=== PATIENT | male | born 1940 | race Caucasian/White ===

== ENCOUNTER 2018-11-07 21:53 | Inpatient (IN) | payer MEDICARE, BC, SELFPAY ==
[2018-11-07 21:54] VITALS: BP 192/100; PULSE 83; RESP 18; TEMP 36.6; O2SAT 97; BMI 37.1
[2018-11-07] MEDS: 0.9% Normal Saline 1,000 ML 1000 ML IV (22:38)
[2018-11-07] MEDS: Morphine 2 MG/ML Syringe IV (22:39)
[2018-11-07] MEDS: Ondansetron 4 MG/2 ML Vial IV (22:39)
[2018-11-07 22:45] LABS: Absolute Lymphocyte Count 0.99 X10^3/ul (0.83-4.51); Absolute Neutrophil Count 10.9 X10^3/uL (2.0-7.7); Basophil# 0.01 X10^3/uL; Basophil% 0.1 % (0-1); Hematocrit 42.1 % (40-54); Hemoglobin 14.5 g/dl (13.0-16.5); Lymphocyte # 0.99 X10^3/ul (4.0); Mean Corp Hgb Conc 34.4 g/gl (32-36); Mean Corpuscular Hgb 34.6 pg (27.0-32.0); Mean Corpuscular Volume 100.5 fL (80-94); Mean Platelet Vol. 9.8 fl (6.2-12.0); Monocyte# 0.46 X10^3/uL; Monocyte% 3.7 % (0-10); Neutrophil # 10.87 X10^3/uL (2.7-7.7); Platelet Count 238 K/mm3 (150-450); RBC Distribution Width CV 12.6 % (11.6-14.6); RBC Distribution Width SD 45.1 fl (35.1-43.9); Red Blood Count 4.19 M/mm3 (4.6-6.2); White Blood Count 12.4 K/mm3 (4.4-11.0)
[2018-11-07 22:46] LABS: POSITIVE COUNT NO; POSITIVE DIFFERENTIAL NO; POSITIVE MORPHOLOGY NO
[2018-11-07 23:00] LABS: AST(SGOT) 22 U/L (15-37); Alanine Aminotransfer ALT/SGPT 23 U/L (16-61); Albumin, Serum 3.7 g/dL (3.2-5.0); Alkaline Phosphatase 54 U/L (45-117); Anion Gap 9 (5-15); BUN 25 mg/dL (7-18); BUN/Creat Ratio 22.5 RATIO (10-20); Chloride 101 mmol/L (98-107); Creatinine, Serum 1.11 mg/dL (0.70-1.30); EST Glomerular Filtration Rate 68 mL/min (>60); Est Glom Filt Rate - Afr Amer 82 mL/min (>60); Estimated Creatinine Clearance 67.34 ml/min; Globulin 3.8 g/dL (2.2-4.2); Glucose 134 mg/dL (74-106); Lipase 70 U/L (73-393); Potassium 3.8 mmol/L (3.5-5.1); Protein, Total 7.5 g/dL (6.4-8.2); Sodium Level 137 mmol/L (136-145)
[2018-11-07 23:13] LABS: Mucous, Urine 0 SEEN /hpf (<or=2+); Red Blood Cells-Urine 0 SEEN /hpf (0-5)
[2018-11-07 23:17] LABS: Color, Urine Yellow (Yellow); Glucose, Dipstick Normal (Normal); Ketone-Dipstick 5 mg/dl (Negative); Leukocyte Esterase-Dipstick 25 /ul (Negative); Nitrite-Dipstick Negative (Negative); Occult Blood-Urine 10 /ul (Negative); Protein-Dipstick 15 mg/dl (Negative); Urine Clarity Clear (Clear); Urine Urobilinogen 4 mg/dl (Normal)
[2018-11-07 23:18] LABS: Urine Bilirubin Dipstick 1 mg/dL (Negative)
[2018-11-07 23:22] LABS: Bacteria RARE /hpf (None Seen)
[2018-11-07 23:23] LABS: Calcium Oxalate Crystals Ur RARE /hpf (<or=2+); Squamous Epithelial Cells - UA 0-5 SEEN /hpf (0-5); White Blood Cells 0-5 SEEN /hpf (0-5)
[2018-11-08] VITALS (15 sets, daily range): BP systolic 110–173; BP diastolic 69–95; PULSE 74–102; RESP 16–20; TEMP 36.4–37.3; O2SAT 90–97; BMI 37.5; BMI 37.4
[2018-11-08] MEDS: proMETHazine 25 MG/ML Syringe 6.25 MG IV ×2 (00:06→03:01)
--- NOTE | 2018-11-08 00:30 | CT_ITS ---
HISTORY: N/V Abdomen pain. Prev rt hip surgery and cholecystectomy TECHNIQUE: Helically acquired images were obtained of the abdomen and pelvis following IV contrast. A radiation dose optimization technique was used for this scan. IV Contrast dosage and agent: 100 cc Isovue-300 contrast Oral contrast: YES COMPARISON: None FINDINGS: GI tract: Long segment abnormal dilatation of proximal and mid small intestinal loops which show increased fluid compared to normal. More focally dilated small bowel loop within the upper midline abdomen extending over a nearly 12 cm length. This loop measures up to 4.7 cm in diameter and shows retained stool with the pseudo-appearance of colon but represents small bowel. Distal to this level, transition zone with nondilated distal ileal loops. CT findings are characteristic for partial small bowel obstruction. Large fecal residue within the right and transverse colon and the distal colon is decompressed. Normal appendix. Lower thorax: Elevation of the right hemidiaphragm compatible with chronic change. No pleural effusion. Small hiatal hernia. Normal liver size with possible 1 cm cyst at the junction of the right and left hepatic lobes. No biliary dilatation. Gallbladder is surgically absent. Negative spleen. Bilateral renal excretion of contrast without evidence of hydronephrosis or suspicious renal lesion. Both kidneys show benign appearing cortical and parapelvic cysts. Right adrenal 2.4 x 1.5 cm nodule, nonspecific. Normal left adrenal Abdominal aorta is atherosclerotic and is normal in caliber. No ascites or retroperitoneal lymphadenopathy. Pelvis: Evaluation of the pelvic floor is partly limited secondary to streak artifact related to right total hip prosthesis. As visualized, the urinary bladder is negative. The prostate gland is not enlarged. Bones: No acute osseous abnormality. Lumbar spine advanced degenerative spondylosis with additional degenerative spondylosis of the lower thoracic spine. CT/Abdomen/Pelvis WITH Contrast IMPRESSION: 1. Abnormally dilated small bowel with distal transition zone from dilated to nondilated small bowel in keeping with partial small bowel obstruction. More focally dilated small bowel loop at the transition level. Details above. 2. Chronic findings include bilateral renal cysts and atherosclerotic calcifications.. Additional findings as above. Individualized dose optimization techniques were used for this CT. at 0216 Reported and signed by: Blair Carey MD N.B. : The above information has been verbally conveyed by Blair Carey to Joce Rodriguez MD, on 11/08/2018 23:42:20 (ET). Electronically Signed: Blair Carey, at 2:15 EST Tel , Service support ,
[2018-11-08] MEDS: Morphine 4 MG/ML Syringe IV (02:49)
--- NOTE | 2018-11-08 03:51 | HP.PCM_ITS ---
Problem List (1) Small bowel obstruction Status: Acute History of Present Illness Date of Admission: 11/08/18 Chief Complaint: nausea, vomiting and abdominal pain The patient is a 78 year old M with a significant history of osteoarthritis; rheumatoid arthritis; hypertension; cholecystectomy who presented with 5-day history of nausea, vomiting and constipation. His symptoms first started with constipation then he began to have nausea and vomiting. Because of his vomiting he has not been able to keep his meds down. Associated with his symptoms is progressively worsening excruciating left lower quadrant pain. His pain is continuous with episodic spikes. He reported that if he drinks or eat anything it aggravates his pain. He reported that drinking contrast for CT of his abdomen at emergency department aggravated his pain. He denies any ameliorating factors. CT of his abdomen and pelvis at emergency department showed the patient has bowel obstruction. Emergency department doctor had a conversation with Dr. Harley, general surgeon. Patient was not having any vomiting at emergency department so NG tube was not placed. General surgery will see patient in a.m. Past Medical History Medical History: Medical History (Last Updated 11/08/18 @ 05:10 by Milton Li MD) Rheumatoid arthritis M06.9 HTN (hypertension) I10 Allergies No Known Allergies Allergy (Verified 11/07/18 21:56) Home Medications: Ambulatory Orders Medication Instructions Recorded Amlodipine [Norvasc] 5 mg PO DAILY 11/07/18 Carvedilol 25 mg PO BID 11/07/18 Folic Acid 1 mg PO DAILY 11/07/18 Hydroxychloroquine [Plaquenil] 1 tab PO BID 11/07/18 Losartan/Hydrochlorothiazide 1 tab PO DAILY 11/07/18 [Losartan-Hctz 100-25 mg Tab] Meloxicam 7.5 mg PO BID 11/07/18 Methotrexate 8 tab PO QWEEK 11/07/18 Omeprazole 40 mg PO DAILY 11/07/18 hydrALAZINE [Apresoline] 25 mg PO BID 11/07/18 Surgical History: cholecystectomy, - - Left hip replacement; facial surgery for cancer; plate placed in left forearm; and left rotator cuff surgery; Lives: Spouse/ Significant Other Smoking Status: Never smoker Alcohol: None - *Family History Maternal Family History: Family History (Last Updated 11/08/18 @ 05:13 by Milton Li MD) Mother Pancreatic cancer Father Heart problem Sister Breast cancer Review of Systems Constitutional: Denies: Chills, Fever, Weight Change HEENT: Denies: Head Aches, Sinus Congestion, Sinus Drainage Cardiovascular: Denies: Chest Pain, Palpitations Respiratory: Denies: Cough, Shortness of breath at rest, Sputum production Gastrointestinal: Reports: Abdominal Pain, Constipation, Nausea, Vomiting Genitourinary: Denies: Dysuria Musculoskeletal: Denies: Joint Pain, Joint Tenderness Skin: Denies: Rash, Wounds Neurological: Denies: Numbness, Tingling, Focal weakness Psychiatric: Denies: Anxiety, Depression, Homicidal Ideations, Suicidal Ideations Hematologic/ Lymphatic: Denies: Easy Bruising, Easy Bleeding VTE Information - Inpt Only VTE Present on Admission: No VTE Mechan Device Prophylaxis: None VTE Pharm Prophylaxis ordered?: Yes Patient Problems: Active and Suspected Problems Small bowel obstruction (Acute) - Physical Exam General: Alert, Oriented x3, Cooperative HEENT: Atraumatic, PERRLA, EOMI, Normocephalic Neck: Supple, No JVD, Negative Carotid Bruits Lungs: Clear to auscultation, Normal air movement Cardiovascular: Regular rate, No murmurs Abdomen: Bowel Sounds Present, Soft, Tender - Epigastric region Extremities: Capillary Refill Less than 3 Seconds, Edema - Left ankle, chronic Skin: No rashes, No breakdown Musculoskeletal: No Tenderness to Palpation of Joints or Extremities Neurological: Neuro grossly intact Psych/Mental Status: Normal Affect, Appropriate Vital Signs Temp Pulse Resp BP Pulse Ox 98 F 91 18 156/88 H 95 11/07/18 21:54 11/08/18 02:43 11/07/18 21:54 11/08/18 02:43 11/08/18 02:43 Oxygen Delivery Method Room Air Weight: 138.346 kg Body Mass Index (BMI) 37.1 Laboratory Tests Past 24 Hrs 11/07/18 11/07/18 11/07/18 22:10 22:35 22:35 WBC 12.4 H RBC 4.19 L Hgb 14.5 Hct 42.1 MCV 100.5 H MCH 34.6 H MCHC 34.4 RDW 12.6 RDW Differential 45.1 H Plt Count 238 MPV 9.8 Immature Gran % (Auto) 0.200 Neut % (Auto) 88.0 H Lymph % (Auto) 8.0 L [place] % (Auto) 3.7 Eos % (Auto) 0.0 Baso % (Auto) 0.1 Absolute Neuts (auto) 10.9 H Absolute Lymphs (auto) 0.99 Total Counted Not Reportable Sodium 137 Potassium 3.8 Chloride 101 Carbon Dioxide 27.0 Anion Gap 9 BUN 25 H Creatinine 1.11 Estim Creat Clear Calc 67.34 Est GFR (MDRD) Af Amer 82 Est GFR (MDRD) Non-Af 68 BUN/Creatinine Ratio 22.5 H Glucose 134 H Calcium 9.0 Total Bilirubin 1.10 H AST 22 ALT 23 Alkaline Phosphatase 54 Total Protein 7.5 Albumin 3.7 Globulin 3.8 Albumin/Globulin Ratio 1.0 Lipase 70 L Urine Color Yellow Urine Clarity Clear Urine pH 6.0 Ur Specific [place] 1.020 Urine Protein 15 H Urine Glucose (UA) Normal Urine Ketones 5 H Urine Occult Blood 10 H Urine Nitrite Negative Urine Bilirubin 1 H Urine Urobilinogen 4 H Ur Leukocyte Esterase 25 H Urine RBC 0 SEEN Urine WBC 0-5 SEEN Ur Squamous Epith Cells 0-5 SEEN Calcium Oxalate Crystal RARE Urine Bacteria RARE Urine Mucus 0 SEEN Assessment/Plan All Active Problems Small bowel obstruction (Acute) The patient is a 78 year old M with a significant history of osteoarthritis; rheumatoid arthritis; hypertension; cholecystectomy who presented with 5-day history of nausea, vomiting , constipation and with radiographic evidence of small bowel obstruction. Small bowel obstruction Supportive treatment with normal saline with potassium. Pain control with IV morphine. Antiemetics with IV Zofran. N.p.o. for bowel rest. General surgery has been consulted. Hypertensive urgency. At emergency department patient blood pressure was 192/100. However patient d id not have any end organ damage. Because patient is n.p.o. we will place patient on scheduled labetalol IV; and as needed IV hydralazine. Patient was admitted to [facility]. We will place him on telemetry while at [facility] and receiving labetalol IV.. Rheumatoid arthritis and osteoarthritis We will hold home meloxicam and methotrexate. Actually methotrexate is due every Monday and is not due at this time. P.o. folic acid is also on hold at this time. Patient will get a as needed morphine for pain as above. GERD Will change home p.o. PPI to IV Protonix. DVT prophylaxis Subcutaneous heparin. Code Visit Inpatient E&M: 47718 Init Hosp L3
[2018-11-08] MEDS: Morphine 2 MG/ML Syringe IV ×4 (05:03→21:01)
[2018-11-08] MEDS: Labetalol 20 MG/4 ML Vial 10 MG IV (06:04)
--- NOTE | 2018-11-08 06:27 | ED.VISSUMM ---
- ER Visit Summary Date of Service: 11/08/18 Chief Complaint: Abdominal pain nausea and vomiting History of Present Illness: The patient is a 78 M who presents with abdominal pain nausea and vomiting. He complains of severe nausea and vomiting since yesterday. He has had waxing and waning left lower quadrant abdominal pain. This is only mild currently but was severe prior to presentation. No fever. No diarrhea. No urinary symptoms. No sick contacts. No history of prior similar symptoms. Physical Examination: Afebrile blood pressure 192/100 vitals otherwise unremarkable Moist mucous membranes Heart regular rate and rhythm Lungs clear Abdomen soft nondistended with left lower quadrant abdominal tenderness without guarding without rebound Alert Test Results: Labs notable for white blood cell count of 12.[address] of the abdomen and pelvis shows findings consistent with partial small bowel obstruction with a focal transition zone. Emergency Department Course and Treatment: My initial concern was for diverticulitis. He does report a remote history of this. He underwent a workup as above. He was symptomatically treated with IV fluids morphine Zofran. He has had no further vomiting here. Therefore I did not place an NG. I spoke to the hospitalist who agrees to admit but also requested that I discussed the patient with surgery for surgical consultation. I spoke to Dr. Harley and patient will have surgical consultation later today. Treatment Plan: [] Disposition: Admit Impression: Partial small bowel obstruction This note was generated with [employer] dictation software. It may contain incorrect words, spelling, and punctuation that were not noted in review of the chart prior to signing ED Disposition - Plan for ED Patient: Disposition: Acute Care Hospital [facility] Chief Complaint: Nausea/Vomiting
--- NOTE | 2018-11-08 06:30 | ED.DCSUM_ITS ---
- ER Visit Summary Date of Service: 11/08/18 Chief Complaint: Abdominal pain nausea and vomiting History of Present Illness: The patient is a 78 M who presents with abdominal pain nausea and vomiting. He complains of severe nausea and vomiting since yesterday. He has had waxing and waning left lower quadrant abdominal pain. This is only mild currently but was severe prior to presentation. No fever. No diarrhea. No urinary symptoms. No sick contacts. No history of prior similar symptoms. Physical Examination: Afebrile blood pressure 192/100 vitals otherwise unremarkable Moist mucous membranes Heart regular rate and rhythm Lungs clear Abdomen soft nondistended with left lower quadrant abdominal tenderness without guarding without rebound Alert Test Results: Labs notable for white blood cell count of 12.[address] of the abdomen and pelvis shows findings consistent with partial small bowel obstruction with a focal transition zone. Emergency Department Course and Treatment: My initial concern was for diverticulitis. He does report a remote history of this. He underwent a workup as above. He was symptomatically treated with IV fluids morphine Zofran. He has had no further vomiting here. Therefore I did not place an NG. I spoke to the hospitalist who agrees to admit but also requested that I discussed the patient with surgery for surgical consultation. I spoke to Dr. Harley and patient will have surgical consultation later today. Treatment Plan: [] Disposition: Admit Impression: Partial small bowel obstruction This note was generated with [employer] dictation software. It may contain incorrect words, spelling, and punctuation that were not noted in review of the chart prior to signing ED Disposition - Plan for ED Patient: Disposition: Acute Care Hospital [facility] Chief Complaint: Nausea/Vomiting
[2018-11-08 07:24] LABS: Absolute Neutrophil Count 11.5 X10^3/uL (2.0-7.7); Basophil# 0.01 X10^3/uL; Basophil% 0.1 % (0-1); Eosinophil# 0.01 X10^3/uL; Eosinophils% 0.1 % (0-5); Hematocrit 43.6 % (40-54); Hemoglobin 14.7 g/dl (13.0-16.5); Lymphocyte % 9.7 % (19-41); Mean Corp Hgb Conc 33.7 g/gl (32-36); Mean Corpuscular Hgb 33.9 pg (27.0-32.0); Mean Corpuscular Volume 100.7 fL (80-94); Mean Platelet Vol. 9.6 fl (6.2-12.0); Monocyte# 0.64 X10^3/uL; Monocyte% 4.8 % (0-10); Neutrophil # 11.45 X10^3/uL (2.7-7.7); Neutrophil % 85.2 % (47-70); Platelet Count 254 K/mm3 (150-450); RBC Distribution Width CV 12.7 % (11.6-14.6); RBC Distribution Width SD 46.1 fl (35.1-43.9); Red Blood Count 4.33 M/mm3 (4.6-6.2); White Blood Count 13.4 K/mm3 (4.4-11.0)
[2018-11-08 07:25] LABS: POSITIVE COUNT NO; POSITIVE DIFFERENTIAL NO; POSITIVE MORPHOLOGY NO
[2018-11-08 07:42] LABS: Anion Gap 8 (5-15); BUN 26 mg/dL (7-18); BUN/Creat Ratio 23.6 RATIO (10-20); Chloride 102 mmol/L (98-107); EST Glomerular Filtration Rate 69 mL/min (>60); Est Glom Filt Rate - Afr Amer 83 mL/min (>60); Estimated Creatinine Clearance 64.35 ml/min; Glucose 132 mg/dL (74-106); Potassium 3.9 mmol/L (3.5-5.1); Sodium Level 138 mmol/L (136-145)
--- NOTE | 2018-11-08 08:44 | PCM.PN.HOSP ---
Patient Problems: Active and Suspected Problems (Last Updated 11/08/18 @ 05:10 by Milton Li MD) Small bowel obstruction (Acute) Subjective: still with abdominal pain. no flatus. no BM. Vitals/I&O's: Vital Signs Temp Pulse Resp BP Pulse Ox 36.4 C L 85 20 H 168/79 H 96 11/08/18 04:53 11/08/18 06:03 11/08/18 04:53 11/08/18 04:53 11/08/18 07:25 Oxygen Delivery Method Room Air Weight: 132.4 kg Body Mass Index (BMI) 37.5 Intake and Output for Last 24 Hours 11/06/18 11/07/18 11/08/18 23:59 23:59 23:59 Intake Total Balance General: Alert, No apparent distress HEENT: Atraumatic, Normocephalic Oral: Moist Mucosa, No Gingival or Mucosal Lesions/ Ulcerations Neck: No Nodes, Thyroid Normal Size and Texture Lungs: Clear to auscultation, Normal air movement, No rhonchi, No wheeze Cardiovascular: Regular rate, Regular Rhythm, Normal S1, Normal S2, No murmurs Abdomen: Soft, Non Tender, Non-Distended, Hypoactive Bowel Sounds Extremities: No edema, No Calf Tenderness Skin: No rashes, No breakdown Psych/Mental Status: Normal Affect, Appropriate Laboratory Results 11/07/18 22:10: Urine Color Yellow, Urine Clarity Clear, Urine pH 6.0, Ur Specific [place] 1.020, Urine Protein 15 H, Urine Glucose (UA) Normal, Urine Ketones 5 H, Urine Occult Blood 10 H, Urine Nitrite Negative, Urine Bilirubin 1 H, Urine Urobilinogen 4 H, Ur Leukocyte Esterase 25 H, Urine RBC 0 SEEN, Urine WBC 0-5 SEEN, Ur Squamous Epith Cells 0-5 SEEN, Calcium Oxalate Crystal RARE, Urine Bacteria RARE, Urine Mucus 0 SEEN 11/07/18 22:35: WBC 12.4 H, RBC 4.19 L, Hgb 14.5, Hct 42.1, MCV 100.5 H, MCH 34.6 H, MCHC 34.4, RDW 12.6, RDW Differential 45.1 H, Plt Count 238, MPV 9.8, Immature Gran % (Auto) 0.200, Neut % (Auto) 88.0 H, Lymph % (Auto) 8.0 L, [place] % (Auto) 3.7, Eos % (Auto) 0.0, Baso % (Auto) 0.1, Absolute Neuts (auto) 10.9 H, Absolute Lymphs (auto) 0.99, Total Counted Not Reportable 11/07/18 22:35: Sodium 137, Potassium 3.8, Chloride 101, Carbon Dioxide 27.0, Anion Gap 9, BUN 25 H, Creatinine 1.11, Estim Creat Clear Calc 67.34, Est GFR (MDRD) Af Amer 82, Est GFR (MDRD) Non-Af 68, BUN/Creatinine Ratio 22.5 H, Glucose 134 H, Calcium 9.0, Total Bilirubin 1.10 H, AST 22, ALT 23, Alkaline Phosphatase 54, Total Protein 7.5, Albumin 3.7, Globulin 3.8, Albumin/Globulin Ratio 1.0, Lipase 70 L 11/08/18 07:10: WBC 13.4 H, RBC 4.33 L, Hgb 14.7, Hct 43.6, MCV 100.7 H, MCH 33.9 H, MCHC 33.7, RDW 12.7, RDW Differential 46.1 H, Plt Count 254, MPV 9.6, Immature Gran % (Auto) 0.100, Neut % (Auto) 85.2 H, Lymph % (Auto) 9.7 L, [place] % (Auto) 4.8, Eos % (Auto) 0.1, Baso % (Auto) 0.1, Absolute Neuts (auto) 11.5 H, Absolute Lymphs (auto) 1.30, Total Counted Not Reportable 11/08/18 07:10: Sodium 138, Potassium 3.9, Chloride 102, Carbon Dioxide 28.0, Anion Gap 8, BUN 26 H, Creatinine 1.10, Estim Creat Clear Calc 64.35, Est GFR (MDRD) Af Amer 83, Est GFR (MDRD) Non-Af 69, BUN/Creatinine Ratio 23.6 H, Glucose 132 H, Calcium 9.0 Current Medications Enalaprilat (Vasotec) 1.25 mg IV Q6 [facility] Heparin Sodium (Porcine) (Heparin Na) 5,000 unit SC Q12 [facility] Hydralazine HCl (Apresoline Iv) 10 mg IV Q4H PRN PRN PRN Reason: SBP > 160 Potassium Chloride/Sodium Chloride () 1,000 mls @ 100 mls/hr IV .Q10H JAVAN Stop: 11/08/18 14:54 Last Admin: 11/08/18 05:05 Dose: 100 mls/hr Pantoprazole Sodium 40 mg/ (Sodium Chloride) 110 mls @ 330 mls/hr IV Q24 JAVAN Last Admin: 11/08/18 06:03 Dose: 330 mls/hr Magnesium Hydroxide (Milk Of Magnesia) 30 ml PO DAILY PRN PRN PRN Reason: Constipation Methotrexate (Methotrexate) 20 mg PO QWEEK JAVAN Morphine Sulfate () 1 - 2 mg IV Q4H PRN PRN PRN Reason: PAIN Last Admin: 11/08/18 05:03 Dose: 2 mg Ondansetron HCl (Zofran) 4 mg IV Q8H PRN PRN PRN Reason: NAUSEA Sodium Chloride () 5 - 15 ml IV UD PRN PRN Reason: SALINE FLUSH Medical Necessity - Tobacco Use Smoking Status: Never smoker Assessment/Plan All Active Problems (Last Updated 11/08/18 @ 05:10 by Milton Li MD) Small bowel obstruction (Acute) 1. pSBO Distal transition zone in small bowel. NPO pain control, antiemetics general surgery on consult. if worse, consider NGT 2. Hypertensive urgency improved since NPO, start enalaprilat (dc scheduled labetolol) resume home meds when able to take PO 3. RA chronic stable next MTX due for 11/12 4. DVT proph: SQ heparin Code Visit Procedures: Other Procedure - See Report - nonbillable rouding.
--- NOTE | 2018-11-08 08:49 | PN_ITS ---
Patient Problems: Active and Suspected Problems (Last Updated 11/08/18 @ 05:10 by Milton Li MD) Small bowel obstruction (Acute) Subjective: still with abdominal pain. no flatus. no BM. Vitals/I&O's: Vital Signs Temp Pulse Resp BP Pulse Ox 36.4 C L 85 20 H 168/79 H 96 11/08/18 04:53 11/08/18 06:03 11/08/18 04:53 11/08/18 04:53 11/08/18 07:25 Oxygen Delivery Method Room Air Weight: 132.4 kg Body Mass Index (BMI) 37.5 Intake and Output for Last 24 Hours 11/06/18 11/07/18 11/08/18 23:59 23:59 23:59 Intake Total Balance General: Alert, No apparent distress HEENT: Atraumatic, Normocephalic Oral: Moist Mucosa, No Gingival or Mucosal Lesions/ Ulcerations Neck: No Nodes, Thyroid Normal Size and Texture Lungs: Clear to auscultation, Normal air movement, No rhonchi, No wheeze Cardiovascular: Regular rate, Regular Rhythm, Normal S1, Normal S2, No murmurs Abdomen: Soft, Non Tender, Non-Distended, Hypoactive Bowel Sounds Extremities: No edema, No Calf Tenderness Skin: No rashes, No breakdown Psych/Mental Status: Normal Affect, Appropriate Laboratory Results 11/07/18 22:10: Urine Color Yellow, Urine Clarity Clear, Urine pH 6.0, Ur Specific [place] 1.020, Urine Protein 15 H, Urine Glucose (UA) Normal, Urine Ketones 5 H, Urine Occult Blood 10 H, Urine Nitrite Negative, Urine Bilirubin 1 H, Urine Urobilinogen 4 H, Ur Leukocyte Esterase 25 H, Urine RBC 0 SEEN, Urine WBC 0-5 SEEN, Ur Squamous Epith Cells 0-5 SEEN, Calcium Oxalate Crystal RARE, Urine Bacteria RARE, Urine Mucus 0 SEEN 11/07/18 22:35: WBC 12.4 H, RBC 4.19 L, Hgb 14.5, Hct 42.1, MCV 100.5 H, MCH 34.6 H, MCHC 34.4, RDW 12.6, RDW Differential 45.1 H, Plt Count 238, MPV 9.8, Immature Gran % (Auto) 0.200, Neut % (Auto) 88.0 H, Lymph % (Auto) 8.0 L, [place] % (Auto) 3.7, Eos % (Auto) 0.0, Baso % (Auto) 0.1, Absolute Neuts (auto) 10.9 H, Absolute Lymphs (auto) 0.99, Total Counted Not Reportable 11/07/18 22:35: Sodium 137, Potassium 3.8, Chloride 101, Carbon Dioxide 27.0, Anion Gap 9, BUN 25 H, Creatinine 1.11, Estim Creat Clear Calc 67.34, Est GFR (MDRD) Af Amer 82, Est GFR (MDRD) Non-Af 68, BUN/Creatinine Ratio 22.5 H, Glucose 134 H, Calcium 9.0, Total Bilirubin 1.10 H, AST 22, ALT 23, Alkaline Phosphatase 54, Total Protein 7.5, Albumin 3.7, Globulin 3.8, Albumin/Globulin Ratio 1.0, Lipase 70 L 11/08/18 07:10: WBC 13.4 H, RBC 4.33 L, Hgb 14.7, Hct 43.6, MCV 100.7 H, MCH 33.9 H, MCHC 33.7, RDW 12.7, RDW Differential 46.1 H, Plt Count 254, MPV 9.6, Immature Gran % (Auto) 0.100, Neut % (Auto) 85.2 H, Lymph % (Auto) 9.7 L, [place] % (Auto) 4.8, Eos % (Auto) 0.1, Baso % (Auto) 0.1, Absolute Neuts (auto) 11.5 H, Absolute Lymphs (auto) 1.30, Total Counted Not Reportable 11/08/18 07:10: Sodium 138, Potassium 3.9, Chloride 102, Carbon Dioxide 28.0, Anion Gap 8, BUN 26 H, Creatinine 1.10, Estim Creat Clear Calc 64.35, Est GFR (MDRD) Af Amer 83, Est GFR (MDRD) Non-Af 69, BUN/Creatinine Ratio 23.6 H, Glucose 132 H, Calcium 9.0 Current Medications Enalaprilat (Vasotec) 1.25 mg IV Q6 [facility] Heparin Sodium (Porcine) (Heparin Na) 5,000 unit SC Q12 [facility] Hydralazine HCl (Apresoline Iv) 10 mg IV Q4H PRN PRN PRN Reason: SBP > 160 Potassium Chloride/Sodium Chloride () 1,000 mls @ 100 mls/hr IV .Q10H JAVAN Stop: 11/08/18 14:54 Last Admin: 11/08/18 05:05 Dose: 100 mls/hr Pantoprazole Sodium 40 mg/ (Sodium Chloride) 110 mls @ 330 mls/hr IV Q24 JAVAN Last Admin: 11/08/18 06:03 Dose: 330 mls/hr Magnesium Hydroxide (Milk Of Magnesia) 30 ml PO DAILY PRN PRN PRN Reason: Constipation Methotrexate (Methotrexate) 20 mg PO QWEEK JAVAN Morphine Sulfate () 1 - 2 mg IV Q4H PRN PRN PRN Reason: PAIN Last Admin: 11/08/18 05:03 Dose: 2 mg Ondansetron HCl (Zofran) 4 mg IV Q8H PRN PRN PRN Reason: NAUSEA Sodium Chloride () 5 - 15 ml IV UD PRN PRN Reason: SALINE FLUSH Medical Necessity - Tobacco Use Smoking Status: Never smoker Assessment/Plan All Active Problems (Last Updated 11/08/18 @ 05:10 by Milton Li MD) Small bowel obstruction (Acute) 1. pSBO * Distal transition zone in small bowel. * NPO * pain control, antiemetics * general surgery on consult. * if worse, consider NGT 2. Hypertensive urgency * improved * since NPO, start enalaprilat (dc scheduled labetolol) * resume home meds when able to take PO 3. RA * chronic * stable * next MTX due for 11/12 4. DVT proph: SQ heparin Code Visit Procedures: Other Procedure - See Report - nonbillable rouding.
[2018-11-08] MEDS: 0.9% NaCl Peripheral Flush Adult/Peds IV ×3 (09:05→13:17)
[2018-11-08] MEDS: Ondansetron 4 MG/2 ML Vial IV (09:05)
--- NOTE | 2018-11-08 09:24 | CASEMGMT ---
Assessment SW met with pt and granddaughter in room and introduced self and role of SW. Pt lives in a one story home with three entry steps with his . Pt does not work and is able to assist as needed. Prior to hospitalization, pt was independent with ADLs and IADLs and was still driving. Pt does have a cane, raised toilet seat and grab bars in the shower. Pt demograpics where confirmed including PCP Dr. Concepcion and pharmacy is [facility]. Pt does have prescription insurance. Pt has not received home health services in the past but has been to a SNF, [place] approximately 7 years ago. Pt does not have a living will or HCPOA. SW explained both documents and pt not interested in completing at this time. SW provided Rack Card on Advance Directives and explained to pt that he can call for appointment after d/c if he changes mind about completing documents. Pt states his family know what his wishes are. Pt plans to return home with spouse after hospital course. PT made aware that SW will remain available should needs arise. Plan: Home with no needs IRA Parsons
[2018-11-08] MEDS: Enalaprilat 1.25 MG/ML Vial IV ×2 (11:21→20:31)
[2018-11-08] MEDS: Heparin Injection (Vial) 5,000 UNIT/ML VIAL 5000 UNIT SC ×2 (11:21→21:01)
--- NOTE | 2018-11-08 12:05 | NURSING ---
radiology called and requested pt to be transported down. [facility] called to request someone to transport pt- awaiting transport.
--- NOTE | 2018-11-08 12:22 | NURSING ---
pt off unit for xray
--- NOTE | 2018-11-08 12:40 | RAD_ITS ---
STUDY: X-RAY - ABDOMEN/PELVIS REASON FOR EXAM: Male, 78 years old. Small bowel obstruction. TECHNIQUE: AP supine and upright KUB, 5 images obtained for appropriate coverage of the anatomy. COMPARISON: CT abdomen and pelvis 11/08/2018. FINDINGS: Several mildly dilated loops of proximal to mid small bowel with air-fluid levels. Decompressed large bowel. No free air. RAD/Abd Inc Decub and/or Erect IMPRESSION: Partial small bowel obstruction. Concordant with CT imaging features. On the CT scan the patient has a discrete focus of transition from dilated proximal to mid ileum into nondilated mid to distal ileum. This CT appearance favors adhesive disease. Electronically Signed: Enrrique Oropeza MD at 15:21 EST Tel , Service support ,
--- NOTE | 2018-11-08 13:46 | EKG12_ITS ---
Test Reason : PRE-OP Blood Pressure : / mmHG Vent. Rate : 082 BPM Atrial Rate : 082 BPM P-R Int : 144 ms QRS Dur : 096 ms QT Int : 370 ms P-R-T Axes : 010 -31 072 degrees QTc Int : 432 ms Sinus rhythm with occasional Premature ventricular complexes Left axis deviation Poor R wave progression Abnormal ECG Confirmed by CLAUDIA SHIPMAN, LETITIA ([id number]), development editor DANIEL HENDRIX ([id number]) on 11/12/2018 1:50:39 PM Referred By: TIMOTHY Confirmed By:LETITIA TAYLOR MD
--- NOTE | 2018-11-08 14:16 | NURSING ---
pt off unit for surgery. Notified that PTT was drawn and CBC BMP drawn this AM and that pt will need EKG. Attempted to call RT for MS2- notified they cannot leave ER and to notify AC. Same completed. Chlorohex bath completed, linens changed, IVF= LR with surgical tubing in place.
[2018-11-08 14:18] LABS: Partial Thromboplast Time 29.6 Seconds (24.1-36.2)
--- NOTE | 2018-11-08 14:36 | CON.PCM_ITS ---
Problem List (1) Small bowel obstruction Status: Acute Reason for Consult Date of Consultation: 11/08/18 History of Present Illness: The patient is a 78 M who presents with abdominal pain nausea and vomiting. He complains of severe nausea and vomiting since yesterday. He has had waxing and waning left lower quadrant abdominal pain. This is only mild currently but was severe prior to presentation. No fever. No diarrhea. No urinary symptoms. No sick contacts. No history of prior similar symptoms. Patient underwent a CAT scan of the abdomen and pelvis. GI tract: Long segment abnormal dilatation of proximal and mid small intestinal loops which show increased fluid compared to normal. More focally dilated small bowel loop within the upper midline abdomen extending over a nearly 12 cm length. This loop measures up to 4.7 cm in diameter and shows retained stool with the pseudo-appearance of colon but represents small bowel. Distal to this level, transition zone with nondilated distal ileal loops. CT findings are characteristic for partial small bowel obstruction. I obtained a flat plate and upright abdominal x-ray on him to see if any of the contrast that he drank actually got into the colon it did not. His white count went up from yesterday. He is complaining of more pain. He states that his overall condition has worsened every day over the last several days. Past Medical History Medical History: Medical History (Last Reviewed 11/08/18 @ 14:38 by Felipe Harley MD) Rheumatoid arthritis M06.9 HTN (hypertension) I10 Allergies No Known Allergies Allergy (Verified 11/08/18 04:34) Home Medications: Ambulatory Orders Medication Instructions Recorded Amlodipine [Norvasc] 5 mg PO DAILY 11/07/18 Carvedilol 25 mg PO BID 11/07/18 Folic Acid 1 mg PO DAILY 11/07/18 Hydroxychloroquine [Plaquenil] 1 tab PO BID 11/07/18 Losartan/Hydrochlorothiazide 1 tab PO DAILY 11/07/18 [Losartan-Hctz 100-25 mg Tab] Meloxicam 7.5 mg PO BID 11/07/18 Methotrexate 8 tab PO QWEEK 11/07/18 Omeprazole 40 mg PO DAILY 11/07/18 hydrALAZINE [Apresoline] 25 mg PO BID 11/07/18 Surgical History: cholecystectomy, - - Left hip replacement; facial surgery for cancer; plate placed in left forearm; and left rotator cuff surgery; Lives: Spouse/ Significant Other Smoking Status: Never smoker Alcohol: None - *Family History Maternal Family History: Family History (Last Reviewed 11/08/18 @ 14:38 by Felipe Harley MD) Mother Pancreatic cancer Father Heart problem Sister Breast cancer Review of Systems Constitutional: Reports: Malaise, Weakness Cardiovascular: Denies: Chest Pain, Chest Pressure, Chest Tightness, Palpitations Respiratory: Denies: Cough, Hemoptysis, Shortness of breath at rest, Shortness of breath upon exertion, Wheezing Gastrointestinal: Reports: Abdominal Pain, Constipation, Nausea, Vomiting Genitourinary: Denies: Dysuria, Frequency, Hematuria, Urgency Patient Problems: Active and Suspected Problems (Last Reviewed 11/08/18 @ 14:38 by Felipe Harley MD) Small bowel obstruction (Acute) - Physical Exam General: Alert, Oriented x3 Lungs: Clear to auscultation Cardiovascular: Regular rate, Regular Rhythm, No murmurs Abdomen: Obese - Patient does not exhibit any rebound or peritoneal signs. He is overtly tender to deep palpation and he is extremely obese. Vital Signs Temp Pulse Resp BP Pulse Ox 98.2 F 95 16 153/91 H 95 11/08/18 11:30 11/08/18 11:30 11/08/18 11:30 11/08/18 11:30 11/08/18 11:30 Oxygen Delivery Method Room Air Weight: 291 lb 14.272 oz Body Mass Index (BMI) 37.4 Intake and Output for Last 24 Hours 11/06/18 11/07/18 11/08/18 23:59 23:59 23:59 Intake Total 780 / 780 Balance 780 / 780 Laboratory Tests Past 24 Hrs 11/07/18 11/07/18 11/07/18 22:10 22:35 22:35 WBC 12.4 H RBC 4.19 L Hgb 14.5 Hct 42.1 MCV 100.5 H MCH 34.6 H MCHC 34.4 RDW 12.6 RDW Differential 45.1 H Plt Count 238 MPV 9.8 Immature Gran % (Auto) 0.200 Neut % (Auto) 88.0 H Lymph % (Auto) 8.0 L [place] % (Auto) 3.7 Eos % (Auto) 0.0 Baso % (Auto) 0.1 Absolute Neuts (auto) 10.9 H Absolute Lymphs (auto) 0.99 Total Counted Not Reportable APTT Sodium 137 Potassium 3.8 Chloride 101 Carbon Dioxide 27.0 Anion Gap 9 BUN 25 H Creatinine 1.11 Estim Creat Clear Calc 67.34 Est GFR (MDRD) Af Amer 82 Est GFR (MDRD) Non-Af 68 BUN/Creatinine Ratio 22.5 H Glucose 134 H Calcium 9.0 Total Bilirubin 1.10 H AST 22 ALT 23 Alkaline Phosphatase 54 Total Protein 7.5 Albumin 3.7 Globulin 3.8 Albumin/Globulin Ratio 1.0 Lipase 70 L Urine Color Yellow Urine Clarity Clear Urine pH 6.0 Ur Specific [place] 1.020 Urine Protein 15 H Urine Glucose (UA) Normal Urine Ketones 5 H Urine Occult Blood 10 H Urine Nitrite Negative Urine Bilirubin 1 H Urine Urobilinogen 4 H Ur Leukocyte Esterase 25 H Urine RBC 0 SEEN Urine WBC 0-5 SEEN Ur Squamous Epith Cells 0-5 SEEN Calcium Oxalate Crystal RARE Urine Bacteria RARE Urine Mucus 0 SEEN 11/08/18 11/08/18 11/08/18 07:10 07:10 14:02 WBC 13.4 H RBC 4.33 L Hgb 14.7 Hct 43.6 MCV 100.7 H MCH 33.9 H MCHC 33.7 RDW 12.7 RDW Differential 46.1 H Plt Count 254 MPV 9.6 Immature Gran % (Auto) 0.100 Neut % (Auto) 85.2 H Lymph % (Auto) 9.7 L [place] % (Auto) 4.8 Eos % (Auto) 0.1 Baso % (Auto) 0.1 Absolute Neuts (auto) 11.5 H Absolute Lymphs (auto) 1.30 Total Counted Not Reportable APTT 29.6 Sodium 138 Potassium 3.9 Chloride 102 Carbon Dioxide 28.0 Anion Gap 8 BUN 26 H Creatinine 1.10 Estim Creat Clear Calc 64.35 Est GFR (MDRD) Af Amer 83 Est GFR (MDRD) Non-Af 69 BUN/Creatinine Ratio 23.6 H Glucose 132 H Calcium 9.0 Total Bilirubin AST ALT Alkaline Phosphatase Total Protein Albumin Globulin Albumin/Globulin Ratio Lipase Urine Color Urine Clarity Urine pH Ur Specific [place] Urine Protein Urine Glucose (UA) Urine Ketones Urine Occult Blood Urine Nitrite Urine Bilirubin Urine Urobilinogen Ur Leukocyte Esterase Urine RBC Urine WBC Ur Squamous Epith Cells Calcium Oxalate Crystal Urine Bacteria Urine Mucus Assessment/Plan All Active Problems (Last Reviewed 11/08/18 @ 14:38 by Felipe Harley MD) Small bowel obstruction (Acute) At this point I think the appropriate thing to do was taken for a diagnostic laparoscopy and see if he only has a tight band adhesion from his previous right upper quadrant abdominal incision from his gallbladder surgery. We did discuss the fact that he may have malignancy he may also require a bowel resection or small bowel resection depending on what I find. In addition the patient also understands that he may need to have a rather large lengthy laparotomy incision for me to be able to do any resection of bowel with in the abdomen. Majority of the risk here is obviously bleeding potential infection but with his overall medical condition which really is not that good heart attacks pneumonias strokes up to and including unfortunately are true risk with this patient. Unfortunately he is not going to get better with NG tube decompression given the fact that he is currently not vomiting. But is also not able to take any nutrients in in an oral fashion. He and his family members are present they do understand that this is a high risk procedure.
--- NOTE | 2018-11-08 16:03 | PCM.OPRPT ---
Problem List (1) Small bowel obstruction Status: Acute Report of Operation Date of Procedure: 11/08/18 Pre-Operative Diagnosis: Small bowel obstruction Post-Operative Diagnosis: Same Surgery/Procedure Performed:: Exploratory laparoscopy and lysis of adhesions Type of Anesthesia:: General Anesthesiologist: Osman Bearden Estimated Blood Loss (mL): < 25 cc Fluids Replaced: 1 liter lr Description of Procedure: Patient was brought into the operating room. Under excellent endotracheal intubation a Winters catheter was placed the abdomen was then sterilely prepped and draped in usual fashion. Local was injected above the umbilicus dissection was carried down to the fascia the fascia grasped with a Rueter varies needle was placed inside the abdomen the abdomen was insufflated to 15 torr. A 10/12 trocar was placed into the abdomen without difficulty or injury to underlying structures. I left lower quadrant #5 trocar was placed. I was able to dissect and identify the decompressed small bowel I followed that back to the mid jejunum where a loop of mid jejunum was adhered to itself and kinked it was clear that I was not going to be able to do this laparoscopically so I made a small midline incision superior to the umbilicus going in a cephalad direction I entered the abdominal cavity and brought up the loop of jejunum and took down the adhesions with in the looped bowel itself with Metzenbaum scissors I had no serosal injury. I was then able to have fluid contents go from the proximal dilated small bowel through and into the decompressed small intestine. I followed the small intestine back to the terminal ileum the terminal ileum went into the cecum without difficulty the appendix all appeared normal and I left it alone. I then followed the dilated small bowel proximally to the ligament of Treitz no other adhesions were identified within the small intestine. The patient had a previous right subcostal incision from the gallbladder many years ago the omentum and transverse colon was plastered to the anterior abdominal wall and I did not feel the taking down these adhesions was necessary at this time I reinspected the abdomen I really ran the small intestine no signs of any Meckel's diverticulum no other masses within the small intestine were identified. I palpated the cecum once again no masses were identified there was no signs of any carcinomatosis within the abdomen itself. I got an accurate needle and sponge count. I removed my #5 trocar in the left lower quadrant good hemostasis was noted. The previous 1012 trocar was incorporated into my incision and so it was subsequently removed. I brought the midline together with #1 PDS irrigated out the subcu brought the subcu together with 2-0 Vicryl deep dermals of 3-0 Vicryl then a running 4-0 Monocryl on the skin. I had anesthesia put an NG tube in but given all the adhesions on the transverse colon up to the abdomen I was unable to palpate the stomach I did not feel like taking these down was appropriate and could have caused more injury. The obvious source of this bowel obstruction was the loop that was kinked in the jejunum. No other bowel obstruction was identified. - Admit VTE Documentation VTE Present on Admission: No VTE Mechan Device Prophylaxis: SCD's VTE Pharm Prophylaxis ordered?: No Reason prophylaxis not ordered:: Treatment Not Indicated
[2018-11-08] MEDS: Bupivacaine 0.5% PF 10 ML VIAL (16:06)
[2018-11-08] MEDS: Lactated Ringers 1,000 ML 150 ML IV (19:06)
[2018-11-09] VITALS (11 sets, daily range): BP systolic 134–180; BP diastolic 67–84; PULSE 82–95; RESP 16–18; TEMP 36.6–37.4; O2SAT 92–94
[2018-11-09] MEDS: Enalaprilat 1.25 MG/ML Vial IV ×4 (00:39→18:12)
[2018-11-09] MEDS: Lactated Ringers 1,000 ML 150 ML IV ×4 (01:06→21:19)
[2018-11-09] MEDS: 0.9% NaCl Peripheral Flush Adult/Peds IV ×4 (01:07→21:19)
[2018-11-09] MEDS: Morphine 2 MG/ML Syringe IV ×2 (01:07→21:18)
[2018-11-09 08:11] LABS: Absolute Lymphocyte Count 1.07 X10^3/ul (0.83-4.51); Absolute Neutrophil Count 7.3 X10^3/uL (2.0-7.7); Basophil# 0.01 X10^3/uL; Basophil% 0.1 % (0-1); Eosinophil# 0.02 X10^3/uL; Eosinophils% 0.2 % (0-5); Hematocrit 37.4 % (40-54); Hemoglobin 12.2 g/dl (13.0-16.5); Lymphocyte # 1.07 X10^3/ul (4.0); Lymphocyte % 11.4 % (19-41); Mean Corp Hgb Conc 32.6 g/gl (32-36); Mean Corpuscular Hgb 33.4 pg (27.0-32.0); Mean Corpuscular Volume 102.5 fL (80-94); Mean Platelet Vol. 9.6 fl (6.2-12.0); Monocyte# 0.94 X10^3/uL; Monocyte% 10.1 % (0-10); Neutrophil % 78.1 % (47-70); Platelet Count 182 K/mm3 (150-450); RBC Distribution Width CV 13.1 % (11.6-14.6); RBC Distribution Width SD 48.3 fl (35.1-43.9); Red Blood Count 3.65 M/mm3 (4.6-6.2); White Blood Count 9.4 K/mm3 (4.4-11.0)
[2018-11-09 08:13] LABS: POSITIVE COUNT NO; POSITIVE DIFFERENTIAL NO; POSITIVE MORPHOLOGY NO
[2018-11-09 08:35] LABS: Anion Gap 6 (5-15); BUN 34 mg/dL (7-18); Calcium,Total 7.7 mg/dL (8.5-10.1); Chloride 107 mmol/L (98-107); Creatinine, Serum 1.31 mg/dL (0.70-1.30); EST Glomerular Filtration Rate 56 mL/min (>60); Est Glom Filt Rate - Afr Amer 68 mL/min (>60); Estimated Creatinine Clearance 54.03 ml/min; Glucose 116 mg/dL (74-106); Potassium 3.9 mmol/L (3.5-5.1); Sodium Level 141 mmol/L (136-145)
--- NOTE | 2018-11-09 09:51 | PN_ITS ---
Patient Problems: Active and Suspected Problems (Last Reviewed 11/08/18 @ 14:38 by Felipe Harley MD) Small bowel obstruction (Acute) Subjective: still with abdominal discomfort, otherwise feeling well. Vitals/I&O's: Vital Signs Temp Pulse Resp BP Pulse Ox 36.6 C 88 16 134/67 H 92 11/09/18 08:20 11/09/18 08:20 11/09/18 08:20 11/09/18 08:20 11/09/18 08:20 Oxygen Flow Rate (L/min) 2 Oxygen Delivery Method Room Air Weight: 132.4 kg Body Mass Index (BMI) 37.4 Intake and Output for Last 24 Hours 11/07/18 11/08/18 11/09/18 23:59 23:59 23:59 Intake Total 780 / 780 1676 / 1676 Output Total 90 / 90 800 / 800 Balance 690 / 690 876 / 876 General: Alert, No apparent distress HEENT: Atraumatic, Normocephalic Oral: Moist Mucosa, No Gingival or Mucosal Lesions/ Ulcerations Neck: No Nodes, Thyroid Normal Size and Texture Lungs: Clear to auscultation, Normal air movement, No rhonchi, No wheeze Cardiovascular: Regular rate, Regular Rhythm, Normal S1, Normal S2, No murmurs Extremities: No edema, No Calf Tenderness Psych/Mental Status: Normal Affect, Appropriate Laboratory Results 11/08/18 14:02: APTT 29.6 11/09/18 08:00: WBC 9.4, RBC 3.65 L, Hgb 12.2 L, Hct 37.4 L, MCV 102.5 H, MCH 33.4 H, MCHC 32.6, RDW 13.1, RDW Differential 48.3 H, Plt Count 182, MPV 9.6, Immature Gran % (Auto) 0.100, Neut % (Auto) 78.1 H, Lymph % (Auto) 11.4 L, [place] % (Auto) 10.1 H, Eos % (Auto) 0.2, Baso % (Auto) 0.1, Absolute Neuts (auto) 7.3, Absolute Lymphs (auto) 1.07, Total Counted Not Reportable 11/09/18 08:00: Sodium 141, Potassium 3.9, Chloride 107, Carbon Dioxide 28.0, Anion Gap 6, BUN 34 H, Creatinine 1.31 H, Estim Creat Clear Calc 54.03, Est GFR (MDRD) Af Amer 68, Est GFR (MDRD) Non-Af 56 L, BUN/Creatinine Ratio 26.0 H, Glucose 116 H, Calcium 7.7 L Current Medications Enalaprilat (Vasotec) 1.25 mg IV Q6 [facility] Last Admin: 11/09/18 05:23 Dose: 1.25 mg Heparin Sodium (Porcine) (Heparin Na) 5,000 unit SC Q12 [facility] Last Admin: 11/08/18 21:01 Dose: 5,000 unit Hydralazine HCl (Apresoline Iv) 10 mg IV Q4H PRN PRN PRN Reason: SBP > 160 Pantoprazole Sodium 40 mg/ (Sodium Chloride) 110 mls @ 330 mls/hr IV Q24 [facility] Last Admin: 11/08/18 06:03 Dose: 330 mls/hr Lactated Ringer's () 1,000 mls @ 150 mls/hr IV .Q6H40M [facility] Last Admin: 11/09/18 08:09 Dose: 150 mls/hr Magnesium Hydroxide (Milk Of Magnesia) 30 ml PO DAILY PRN PRN PRN Reason: Constipation Methotrexate (Methotrexate) 20 mg PO QWEEK [facility] Morphine Sulfate () 1 - 2 mg IV Q4H PRN PRN PRN Reason: PAIN Last Admin: 11/09/18 01:07 Dose: 2 mg Ondansetron HCl (Zofran) 4 mg IV Q8H PRN PRN PRN Reason: NAUSEA Last Admin: 11/08/18 09:05 Dose: 4 mg Sodium Chloride () 5 - 15 ml IV UD PRN PRN Reason: SALINE FLUSH Last Admin: 11/09/18 05:24 Dose: 10 ml Medical Necessity - Tobacco Use Smoking Status: Never smoker Assessment/Plan All Active Problems (Last Reviewed 11/08/18 @ 14:38 by Felipe Harley MD) Small bowel obstruction (Acute) 1. pSBO * s/p GRACY on 11/08 * NG * NPO * pain control, antiemetics * mgmt per general surgery. 2. Hypertensive urgency * improved * since NPO, start enalaprilat (dc scheduled labetolol) * resume home meds when able to take PO 3. RA * chronic * stable * next MTX due for 11/12, hold if still here by then. 4. DVT proph: SQ heparin Code Visit Inpatient E&M: 50000 Subs Hosp L2
[2018-11-09] MEDS: Heparin Injection (Vial) 5,000 UNIT/ML VIAL 5000 UNIT SC ×2 (10:07→21:19)
--- NOTE | 2018-11-09 14:52 | PN.SURG_ITS ---
Patient Problems: Active and Suspected Problems (Last Reviewed 11/08/18 @ 14:38 by Felipe Harley MD) Small bowel obstruction (Acute) Subjective: No flatus as of yet. Patient states his pain is well controlled. Objective: Abdomen is soft dressing is dry. No signs of rebound guarding or peritoneal sig ns. - Physical Exam Vital Signs Temp Pulse Resp BP Pulse Ox 97.8 F 88 16 134/67 H 93 11/09/18 08:20 11/09/18 11:58 11/09/18 08:20 11/09/18 08:20 11/09/18 10:03 Oxygen Flow Rate (L/min) 2 Oxygen Delivery Method Room Air Weight: 291 lb 14.272 oz Body Mass Index (BMI) 37.4 Intake and Output for Last 24 Hours 11/07/18 11/08/18 11/09/18 23:59 23:59 23:59 Intake Total 780 / 780 2703 / 2703 Output Total 90 / 90 1200 / 1200 Balance 690 / 690 1503 / 1503 Laboratory Tests Past 24 Hrs 11/09/18 11/09/18 08:00 08:00 WBC 9.4 RBC 3.65 L Hgb 12.2 L Hct 37.4 L MCV 102.5 H MCH 33.4 H MCHC 32.6 RDW 13.1 RDW Differential 48.3 H Plt Count 182 MPV 9.6 Immature Gran % (Auto) 0.100 Neut % (Auto) 78.1 H Lymph % (Auto) 11.4 L [place] % (Auto) 10.1 H Eos % (Auto) 0.2 Baso % (Auto) 0.1 Absolute Neuts (auto) 7.3 Absolute Lymphs (auto) 1.07 Total Counted Not Reportable Sodium 141 Potassium 3.9 Chloride 107 Carbon Dioxide 28.0 Anion Gap 6 BUN 34 H Creatinine 1.31 H Estim Creat Clear Calc 54.03 Est GFR (MDRD) Af Amer 68 Est GFR (MDRD) Non-Af 56 L BUN/Creatinine Ratio 26.0 H Glucose 116 H Calcium 7.7 L Medical Necessity - Tobacco Use Smoking Status: Never smoker Assessment/Plan All Active Problems (Last Reviewed 11/08/18 @ 14:38 by Felipe Harley MD) Small bowel obstruction (Acute) Postop day #1 Pain management is well controlled. Winters catheter was removed. Await GI function.
--- NOTE | 2018-11-09 15:21 | CASEMGMT ---
NEWTON MOE NOTE: PT/OT lance reviewed. To room to talk with pt re: therapies recommendations and pt's wishes. Pt states he may be interested in going to TCU for therapy but does not want to go to any type of [place] [facility] [place] facility, even if they have a skilled unit. Pt states he would like to discuss this with his 1st before he makes a final decision. KASIA, Maryanne, notified. *Pt states if he continues to improve and would be strong enough to return home, that he would rather do Out-patient therapy instead of having therapy through [facility]. He states he was previously going to [facility] in [place] and working out on his own and would like to do therapy there. Helga SHARMA RN, CM
--- NOTE | 2018-11-09 15:49 | CASEMGMT ---
Social Work Per NEWTON Tam CM pt is considering TCU upon d/c from hospital. Pt would like to go home if able but if not pt is considering TCU. Referral made to Natalia in TCU and requested pt name be placed on TCU list. SW to follow up on Monday for more concrete d/c planning. IRA Parsons
[2018-11-10] VITALS (18 sets, daily range): BP systolic 103–160; BP diastolic 57–88; PULSE 80–147; RESP 18–25; TEMP 36.6–37.4; O2SAT 90–95
[2018-11-10] MEDS: Enalaprilat 1.25 MG/ML Vial IV ×3 (00:14→12:40)
[2018-11-10] MEDS: Morphine 2 MG/ML Syringe IV ×2 (02:10→20:37)
[2018-11-10] MEDS: 0.9% NaCl Peripheral Flush Adult/Peds IV ×2 (02:11→23:44)
[2018-11-10] MEDS: Lactated Ringers 1,000 ML 150 ML IV ×2 (04:49→10:55)
[2018-11-10 07:03] LABS: Absolute Lymphocyte Count 1.22 X10^3/ul (0.83-4.51); Absolute Neutrophil Count 5.6 X10^3/uL (2.0-7.7); Basophil# 0.01 X10^3/uL; Basophil% 0.1 % (0-1); Eosinophil# 0.11 X10^3/uL; Eosinophils% 1.4 % (0-5); Hemoglobin 11.7 g/dl (13.0-16.5); Lymphocyte # 1.22 X10^3/ul (4.0); Lymphocyte % 15.4 % (19-41); Mean Corp Hgb Conc 33.4 g/gl (32-36); Mean Corpuscular Hgb 34.5 pg (27.0-32.0); Mean Corpuscular Volume 103.2 fL (80-94); Mean Platelet Vol. 9.4 fl (6.2-12.0); Monocyte# 0.92 X10^3/uL; Monocyte% 11.6 % (0-10); Neutrophil # 5.59 X10^3/uL (2.7-7.7); Neutrophil % 70.9 % (47-70); Platelet Count 160 K/mm3 (150-450); RBC Distribution Width CV 12.4 % (11.6-14.6); RBC Distribution Width SD 45.1 fl (35.1-43.9); Red Blood Count 3.39 M/mm3 (4.6-6.2); White Blood Count 7.9 K/mm3 (4.4-11.0)
[2018-11-10 07:17] LABS: POSITIVE COUNT NO; POSITIVE DIFFERENTIAL NO; POSITIVE MORPHOLOGY NO
--- NOTE | 2018-11-10 07:21 | PCM.PN.SRG ---
Patient Problems: Active and Suspected Problems (Last Reviewed 11/08/18 @ 14:38 by Felipe Harley MD) Small bowel obstruction (Acute) Subjective: Positive flatus denies abdominal pain except when he coughs, denies nausea, NG only has clear liquid and container - Physical Exam General: Alert, Oriented x3, Cooperative, No apparent distress Lungs: Normal air movement Cardiovascular: Regular rate Abdomen: Soft, Non-Distended, Tender - At incision, incision clean dry and intact, no peritoneal signs, ecchymosis below the incision resolving Vital Signs Temp Pulse Resp BP Pulse Ox 99.4 F H 86 18 144/75 H 94 11/10/18 02:00 11/10/18 02:00 11/10/18 02:00 11/10/18 02:00 11/10/18 02:00 Oxygen Flow Rate (L/min) 2 Oxygen Delivery Method Room Air Weight: 291 lb 14.272 oz Body Mass Index (BMI) 37.4 Intake and Output for Last 24 Hours 11/08/18 11/09/18 11/10/18 23:59 23:59 23:59 Intake Total 780 / 780 3896 / 3896 2017 Output Total 90 / 90 1800 / 1800 1275 / 1275 Balance 690 / 690 2096 / 2096 743 / 743 Laboratory Tests Past 24 Hrs 11/09/18 11/09/18 11/10/18 08:00 08:00 06:45 WBC 9.4 7.9 RBC 3.65 L 3.39 L Hgb 12.2 L 11.7 L Hct 37.4 L 35.0 L MCV 102.5 H 103.2 H MCH 33.4 H 34.5 H MCHC 32.6 33.4 RDW 13.1 12.4 RDW Differential 48.3 H 45.1 H Plt Count 182 160 MPV 9.6 9.4 Immature Gran % (Auto) 0.100 0.600 Neut % (Auto) 78.1 H 70.9 H Lymph % (Auto) 11.4 L 15.4 L [place] % (Auto) 10.1 H 11.6 H Eos % (Auto) 0.2 1.4 Baso % (Auto) 0.1 0.1 Absolute Neuts (auto) 7.3 5.6 Absolute Lymphs (auto) 1.07 1.22 Total Counted Not Reportable Not Reportable Sodium 141 Potassium 3.9 Chloride 107 Carbon Dioxide 28.0 Anion Gap 6 BUN 34 H Creatinine 1.31 H Estim Creat Clear Calc 54.03 Est GFR (MDRD) Af Amer 68 Est GFR (MDRD) Non-Af 56 L BUN/Creatinine Ratio 26.0 H Glucose 116 H Calcium 7.7 L 11/10/18 06:45 WBC RBC Hgb Hct MCV MCH MCHC RDW RDW Differential Plt Count MPV Immature Gran % (Auto) Neut % (Auto) Lymph % (Auto) [place] % (Auto) Eos % (Auto) Baso % (Auto) Absolute Neuts (auto) Absolute Lymphs (auto) Total Counted Sodium Pending Potassium Pending Chloride Pending Carbon Dioxide Pending Anion Gap Pending BUN Pending Creatinine Pending Estim Creat Clear Calc Est GFR (MDRD) Af Amer Pending Est GFR (MDRD) Non-Af Pending BUN/Creatinine Ratio Pending Glucose Pending Calcium Pending Medical Necessity - Tobacco Use Smoking Status: Never smoker Assessment/Plan All Active Problems (Last Reviewed 11/08/18 @ 14:38 by Felipe Harley MD) Small bowel obstruction (Acute) Postop day 2 Removed patient's NG as patient is passing flatus will await more flatus to start clears-continue sips for now. If he does have BM will give her regular diet Continue ambulating [place] Annabella Hines M.D. Pager: [phone] [facility] [address] [place] [address], [facility], [address] [place] [address] Office: [phone]
[2018-11-10 07:36] LABS: Anion Gap 6 (5-15); BUN 23 mg/dL (7-18); BUN/Creat Ratio 28.4 RATIO (10-20); Calcium,Total 7.8 mg/dL (8.5-10.1); Chloride 107 mmol/L (98-107); Creatinine, Serum 0.81 mg/dL (0.70-1.30); EST Glomerular Filtration Rate 98 mL/min (>60); Est Glom Filt Rate - Afr Amer 118 mL/min (>60); Estimated Creatinine Clearance 87.39 ml/min; Glucose 88 mg/dL (74-106); Potassium 3.8 mmol/L (3.5-5.1); Sodium Level 141 mmol/L (136-145)
[2018-11-10] MEDS: Heparin Injection (Vial) 5,000 UNIT/ML VIAL 5000 UNIT SC ×2 (09:38→20:38)
--- NOTE | 2018-11-10 15:00 | PN_ITS ---
Patient Problems: Active and Suspected Problems (Last Reviewed 11/08/18 @ 14:38 by Felipe Harley MD) Small bowel obstruction (Acute) Subjective: Feels better, now that NG has been removed. Abdominal pain improving. +Flatus. Vitals/I&O's: Vital Signs Temp Pulse Resp BP Pulse Ox 36.6 C 84 18 141/88 H 94 11/10/18 12:38 11/10/18 13:53 11/10/18 12:38 11/10/18 12:38 11/10/18 12:38 Oxygen Flow Rate (L/min) 2 Oxygen Delivery Method Room Air Weight: 132.4 kg Body Mass Index (BMI) 37.4 Intake and Output for Last 24 Hours 11/08/18 11/09/18 11/10/18 23:59 23:59 23:59 Intake Total 780 / 780 3896 / 3896 4018 / 4018 Output Total 90 / 90 1800 / 1800 1625 / 1625 Balance 690 / 690 2096 / 2096 2393 / 2393 General: Alert, Cooperative, No apparent distress HEENT: Atraumatic, Normocephalic Oral: Moist Mucosa, No Gingival or Mucosal Lesions/ Ulcerations Neck: No Nodes, Thyroid Normal Size and Texture Lungs: Clear to auscultation, Normal air movement, No rhonchi, No wheeze Cardiovascular: Regular rate, Regular Rhythm, Normal S1, Normal S2 Abdomen: Bowel Sounds Present, Soft, Non Tender, Non-Distended, No Hepato- splenomegaly Extremities: No edema, No Calf Tenderness Psych/Mental Status: Normal Affect, Appropriate Laboratory Results 11/10/18 06:45: WBC 7.9, RBC 3.39 L, Hgb 11.7 L, Hct 35.0 L, MCV 103.2 H, MCH 34.5 H, MCHC 33.4, RDW 12.4, RDW Differential 45.1 H, Plt Count 160, MPV 9.4, Immature Gran % (Auto) 0.600, Neut % (Auto) 70.9 H, Lymph % (Auto) 15.4 L, [place] % (Auto) 11.6 H, Eos % (Auto) 1.4, Baso % (Auto) 0.1, Absolute Neuts (auto) 5.6, Absolute Lymphs (auto) 1.22, Total Counted Not Reportable 11/10/18 06:45: Sodium 141, Potassium 3.8, Chloride 107, Carbon Dioxide 28.0, Anion Gap 6, BUN 23 H, Creatinine 0.81, Estim Creat Clear Calc 87.39, Est GFR (MDRD) Af Amer 118, Est GFR (MDRD) Non-Af 98, BUN/Creatinine Ratio 28.4 H, Glucose 88, Calcium 7.8 L Current Medications Enalaprilat (Vasotec) 1.25 mg IV Q6 [facility] Last Admin: 11/10/18 12:40 Dose: 1.25 mg Heparin Sodium (Porcine) (Heparin Na) 5,000 unit SC Q12 [facility] Last Admin: 11/10/18 09:38 Dose: 5,000 unit Hydralazine HCl (Apresoline Iv) 10 mg IV Q4H PRN PRN PRN Reason: SBP > 160 Pantoprazole Sodium 40 mg/ (Sodium Chloride) 110 mls @ 330 mls/hr IV Q24 [facility] Last Admin: 11/10/18 09:38 Dose: 330 mls/hr Lactated Ringer's () 1,000 mls @ 120 mls/hr IV .Q8H20M [facility] Magnesium Hydroxide (Milk Of Magnesia) 30 ml PO DAILY PRN PRN PRN Reason: Constipation Morphine Sulfate () 1 - 2 mg IV Q4H PRN PRN PRN Reason: PAIN Last Admin: 11/10/18 02:10 Dose: 2 mg Ondansetron HCl (Zofran) 4 mg IV Q8H PRN PRN PRN Reason: NAUSEA Last Admin: 11/08/18 09:05 Dose: 4 mg Sodium Chloride () 5 - 15 ml IV UD PRN PRN Reason: SALINE FLUSH Last Admin: 11/10/18 02:11 Dose: 10 ml Medical Necessity - Tobacco Use Smoking Status: Never smoker Assessment/Plan All Active Problems (Last Reviewed 11/08/18 @ 14:38 by Felipe Harley MD) Small bowel obstruction (Acute) 1. pSBO * s/p GRACY on 11/08 * NG * clears * pain control, antiemetics * mgmt per general surgery. 2. Hypertensive urgency * improved * DC enalaprilat * resume home medications and monitor now that he can take PO 3. RA * chronic * stable * next MTX due for 11/12, hold if still here by then. 4. DVT proph: SQ heparin Code Visit Inpatient E&M: 24823 Subs Hosp L2
[2018-11-10] MEDS: Lactated Ringers 1,000 ML 120 ML IV ×2 (17:47→23:51)
[2018-11-10] MEDS: hydrALAZINE 25 MG Tablet PO ×2 (18:17)
[2018-11-10] MEDS: Carvedilol 25 MG Tablet PO ×2 (18:18)
--- NOTE | 2018-11-10 18:22 | NURSING ---
LATE ENTRY - 174 - PT HAD SMALL LOOSE BM. DR SAMUELS NOTIFIED - DIET ADVANCED.
[2018-11-10] MEDS: Ondansetron 4 MG/2 ML Vial IV (20:37)
[2018-11-10] MEDS: traZODone 50 MG Tablet PO (20:37)
--- NOTE | 2018-11-10 21:55 | NURSING ---
pt on tele alarmed for afib. in to see pt denies chest pain or any other symptom, he is watching tv. called cps for stat ekg.
--- NOTE | 2018-11-10 22:01 | NURSING ---
Dr. Li called updated on tele alarming afib, pt asymptomatic. cps here and did stat ekg reads afib. pt states he hasnt had afib that he is aware of. will be up to see pt.
--- NOTE | 2018-11-10 22:10 | NURSING ---
NURSING SUPV AWARE OF PT CHANGE IN CONDITION WILL GET PCU ROOM #
--- NOTE | 2018-11-10 22:24 | NURSING ---
DR HERE TO SEE PT HE WILL BE TRANSFER TO PCU FOR NEW ONSET AFIB. PT STATES HE WILL CALL HIS . CONTINUES TO DENY ANY SYMPTOMS
--- NOTE | 2018-11-10 22:26 | PCM.PN.BLA ---
Progress Note The patient is a 78 year old M with a significant history of osteoarthritis; rheumatoid arthritis; hypertension; cholecystectomy who presented with 5-day history of nausea, vomiting and constipation; and who was found to be having a partial small bowel obstruction and had lysis of adhesion. While at the medical surgical unit patient was found to be in A. fib with RVR. Denied any history of A. fib or heart disease. Patient denies any chest pain. Heart rate irregularly irregular. Lungs clear to auscultate. Abdomen with incision dry and intact. A. fib with RVR TSH, magnesium, complete echocardiogram ordered. Cardizem bolus and drip. We will discontinue heparin subcutaneous prophylaxis for DVT. Lovenox therapeutic dose x1. Cardiology consult.
--- NOTE | 2018-11-10 22:42 | NURSING ---
REPORT CALLED TO PCU
--- NOTE | 2018-11-10 22:50 | NURSING ---
TRANSFER TO [facility]
--- NOTE | 2018-11-10 23:15 | ECHOCS_ITS ---
Reason For Study: Afib/Flutter Procedure This was a 2D Doppler, Color Flow transthoracic echocardiogram. The study was technically difficult. Contrast injection was performed. Exam performed portable in patient room. Left Ventricle Based upon the 2D echocardiographic and contrast enhanced images obtained there appears to be grossly normal left ventricular size, wall motion, and systolic function. The estimated ejection fraction is 55 %. Unable to assess diastolic dysfunction. Right Ventricle The right ventricle is not well visualized. Atria Normal left atrium. Normal right atrium. No doppler evidence for ASD. Mitral Valve Mitral valve not well visualized. Tricuspid Valve The tricuspid valve is not well visualized. Aortic Valve The aortic valve is not well visualized. Pulmonic Valve The pulmonic valve is not well visualized. Great Vessels The aortic root is not well visualized. Pericardium/Pleural No pericardial effusion. Medication Diluted definity 5ml given slow IV push to enhance endocardial definition. MMode/2D Measurements & Calculations LAV(MOD-sp4): 43.6 ml LA A4 area: 17.8 cm2 Doppler Measurements & Calculations MV E max arnold: 90.2 cm/sec Ao V2 max: 158.4 cm/sec LV V1 max: 125.6 cm/sec Ao max P.1 mmHg LV V1 max P.4 mmHg MR max arnold: 109.7 cm/sec PA V2 max: 111.2 cm/sec MR max P.8 mmHg Interpretation Summary The study was technically difficult. Contrast injection was performed. Based upon the 2D echocardiographic and contrast enhanced images obtained there appears to be grossly normal left ventricular size, wall motion, and systolic function. The estimated ejection fraction is 55 %. Unable to assess diastolic dysfunction. Ordering Physician: Milton Li Performed By: Angel Rainey RCS
[2018-11-10] MEDS: dilTIAZem 25 MG/5 ML Vial 10 MG IV BOLUS (23:44)
[2018-11-11] VITALS (48 sets, daily range): BP systolic 84–144; BP diastolic 57–113; PULSE 88–147; RESP 18–29; TEMP 36.3–37.4; O2SAT 90–100
[2018-11-11 00:16] LABS: Magnesium 1.3 mg/dL (1.6-2.6); Thyroid Stim Hormone (TSH) 1.15 uIU/mL (0.358-3.74)
[2018-11-11] MEDS: Magnesium Sulfate 4gm/100mL 4 GM/100 ML IV.SOLN. IV (02:53)
[2018-11-11 06:38] LABS: Absolute Neutrophil Count 5.3 X10^3/uL (2.0-7.7); Basophil# 0.01 X10^3/uL; Basophil% 0.1 % (0-1); Eosinophil# 0.25 X10^3/uL; Eosinophils% 3.1 % (0-5); Hematocrit 34.9 % (40-54); Hemoglobin 11.5 g/dl (13.0-16.5); Lymphocyte % 16.2 % (19-41); Mean Corpuscular Hgb 33.3 pg (27.0-32.0); Mean Corpuscular Volume 101.2 fL (80-94); Mean Platelet Vol. 10.2 fl (6.2-12.0); Monocyte# 1.11 X10^3/uL; Monocyte% 13.8 % (0-10); Neutrophil # 5.34 X10^3/uL (2.7-7.7); Neutrophil % 66.6 % (47-70); Platelet Count 174 K/mm3 (150-450); RBC Distribution Width CV 12.9 % (11.6-14.6); RBC Distribution Width SD 47.1 fl (35.1-43.9); Red Blood Count 3.45 M/mm3 (4.6-6.2)
[2018-11-11 06:48] LABS: POSITIVE COUNT NO; POSITIVE DIFFERENTIAL NO; POSITIVE MORPHOLOGY NO
[2018-11-11 06:58] LABS: Anion Gap 8 (5-15); BUN 17 mg/dL (7-18); BUN/Creat Ratio 21.7 RATIO (10-20); Calcium,Total 7.7 mg/dL (8.5-10.1); Chloride 106 mmol/L (98-107); Creatinine, Serum 0.78 mg/dL (0.70-1.30); EST Glomerular Filtration Rate 102 mL/min (>60); Est Glom Filt Rate - Afr Amer 123 mL/min (>60); Estimated Creatinine Clearance 70.78 ml/min; Glucose 101 mg/dL (74-106); Potassium 3.8 mmol/L (3.5-5.1); Sodium Level 142 mmol/L (136-145)
[2018-11-11] MEDS: Lactated Ringers 1,000 ML 120 ML IV (07:21)
--- NOTE | 2018-11-11 08:12 | PCM.PN.SRG ---
Patient Problems: Active and Suspected Problems (Last Reviewed 11/08/18 @ 14:38 by Felipe Harley MD) Small bowel obstruction (Acute) Subjective: Patient states she has had quite a bit of flatus as well as loose bowel movements been advanced to a regular diet, denies any nausea or vomiting, however last night he did go into A. fib with RVR got moved to the PCU patient denies any chest pain or palpitations - Physical Exam General: Alert, Oriented x3, Cooperative, No apparent distress HEENT: Atraumatic Cardiovascular: Irregular Rate, Tachycardic Abdomen: Soft, Non Tender - Peritoneal signs, incision clean dry and intact with Steri's with resolving ecchymosis, Non-Distended Vital Signs Temp Pulse Resp BP Pulse Ox 99.0 F 106 H 23 H 126/100 H 94 11/11/18 05:00 11/11/18 07:00 11/11/18 07:00 11/11/18 07:00 11/11/18 07:00 Oxygen Flow Rate (L/min) 2 Oxygen Delivery Method Nasal Cannula Weight: 291 lb 14.272 oz Body Mass Index (BMI) 37.4 Intake and Output for Last 24 Hours 11/09/18 11/10/18 11/11/18 23:59 23:59 23:59 Intake Total 3896 / 3896 6079 / 6079 868.8 / 868.8 Output Total 1800 / 1800 1725 / 1725 550 / 550 Balance 2096 / 2096 4354 / 4354 318.8 / 318.8 Laboratory Tests Past 24 Hrs 11/10/18 11/11/18 11/11/18 23:45 05:05 05:05 WBC 8.0 RBC 3.45 L Hgb 11.5 L Hct 34.9 L MCV 101.2 H MCH 33.3 H MCHC 33.0 RDW 12.9 RDW Differential 47.1 H Plt Count 174 MPV 10.2 Immature Gran % (Auto) 0.200 Neut % (Auto) 66.6 Lymph % (Auto) 16.2 L [place] % (Auto) 13.8 H Eos % (Auto) 3.1 Baso % (Auto) 0.1 Absolute Neuts (auto) 5.3 Absolute Lymphs (auto) 1.30 Total Counted Not Reportable Sodium 142 Potassium 3.8 Chloride 106 Carbon Dioxide 28.0 Anion Gap 8 BUN 17 Creatinine 0.78 Estim Creat Clear Calc 70.78 Est GFR (MDRD) Af Amer 123 Est GFR (MDRD) Non-Af 102 BUN/Creatinine Ratio 21.7 H Glucose 101 Calcium 7.7 L Magnesium 1.3 L TSH 1.15 Medical Necessity - Tobacco Use Smoking Status: Never smoker Assessment/Plan All Active Problems (Last Reviewed 11/08/18 @ 14:38 by Felipe Harley MD) Small bowel obstruction (Acute) Postop day 3, new and onset A. fib with RVR Patient had a loose bowel movement as well as passing flatus advance to a regular diet. Continue ambulating halls Cardizem drip per primary and cardiology consulted, hypo-magnesium replace per primary Annabella Hines M.D. Pager: [phone] [facility] [address] [place] [address], Outpatient Pavilion, [address] [place] [address] Office: [phone]
--- NOTE | 2018-11-11 08:15 | PN.SURG_ITS ---
Patient Problems: Active and Suspected Problems (Last Reviewed 11/08/18 @ 14:38 by Felipe Harley MD) Small bowel obstruction (Acute) Subjective: Patient states she has had quite a bit of flatus as well as loose bowel movements been advanced to a regular diet, denies any nausea or vomiting, however last night he did go into A. fib with RVR got moved to the PCU patient denies any chest pain or palpitations - Physical Exam General: Alert, Oriented x3, Cooperative, No apparent distress HEENT: Atraumatic Cardiovascular: Irregular Rate, Tachycardic Abdomen: Soft, Non Tender - Peritoneal signs, incision clean dry and intact with Steri's with resolving ecchymosis, Non-Distended Vital Signs Temp Pulse Resp BP Pulse Ox 99.0 F 106 H 23 H 126/100 H 94 11/11/18 05:00 11/11/18 07:00 11/11/18 07:00 11/11/18 07:00 11/11/18 07:00 Oxygen Flow Rate (L/min) 2 Oxygen Delivery Method Nasal Cannula Weight: 291 lb 14.272 oz Body Mass Index (BMI) 37.4 Intake and Output for Last 24 Hours 11/09/18 11/10/18 11/11/18 23:59 23:59 23:59 Intake Total 3896 / 3896 6079 / 6079 868.8 / 868.8 Output Total 1800 / 1800 1725 / 1725 550 / 550 Balance 2096 / 2096 4354 / 4354 318.8 / 318.8 Laboratory Tests Past 24 Hrs 11/10/18 11/11/18 11/11/18 23:45 05:05 05:05 WBC 8.0 RBC 3.45 L Hgb 11.5 L Hct 34.9 L MCV 101.2 H MCH 33.3 H MCHC 33.0 RDW 12.9 RDW Differential 47.1 H Plt Count 174 MPV 10.2 Immature Gran % (Auto) 0.200 Neut % (Auto) 66.6 Lymph % (Auto) 16.2 L [place] % (Auto) 13.8 H Eos % (Auto) 3.1 Baso % (Auto) 0.1 Absolute Neuts (auto) 5.3 Absolute Lymphs (auto) 1.30 Total Counted Not Reportable Sodium 142 Potassium 3.8 Chloride 106 Carbon Dioxide 28.0 Anion Gap 8 BUN 17 Creatinine 0.78 Estim Creat Clear Calc 70.78 Est GFR (MDRD) Af Amer 123 Est GFR (MDRD) Non-Af 102 BUN/Creatinine Ratio 21.7 H Glucose 101 Calcium 7.7 L Magnesium 1.3 L TSH 1.15 Medical Necessity - Tobacco Use Smoking Status: Never smoker Assessment/Plan All Active Problems (Last Reviewed 11/08/18 @ 14:38 by Felipe Harley MD) Small bowel obstruction (Acute) Postop day 3, new and onset A. fib with RVR Patient had a loose bowel movement as well as passing flatus advance to a regular diet. Continue ambulating halls Cardizem drip per primary and cardiology consulted, hypo-magnesium replace per primary Annabella Hines M.D. Pager: [phone] [facility] [address] [place] [address], Outpatient Pavilion, [address] [place] [address] Office: [phone]
[2018-11-11] MEDS: Pantoprazole Sodium 40 MG Tablet PO (10:10)
[2018-11-11] MEDS: Folic Acid 1 MG Tablet PO (10:10)
[2018-11-11] MEDS: Losartan Potassium 100 MG Tablet PO (10:10)
[2018-11-11] MEDS: Carvedilol 25 MG Tablet PO ×2 (10:10→21:35)
[2018-11-11] MEDS: hydrALAZINE 25 MG Tablet PO ×2 (10:11→21:35)
[2018-11-11] MEDS: hydroCHLOROthiazide 25 MG Tablet PO (10:11)
[2018-11-11] MEDS: amLODIPine 5 MG Tablet PO (10:14)
--- NOTE | 2018-11-11 11:51 | PCM.PN.HOSP ---
Patient Problems: Active and Suspected Problems (Last Reviewed 11/08/18 @ 14:38 by Felipe Harley MD) Small bowel obstruction (Acute) Subjective: Abdomen feeling better. Developed Afib w RVR last night. No palpitations. Never aware of afib previously. Vitals/I&O's: Vital Signs Temp Pulse Resp BP Pulse Ox 37.2 C 107 H 23 H 134/68 H 99 11/11/18 05:00 11/11/18 10:11 11/11/18 10:00 11/11/18 10:11 11/11/18 10:00 Oxygen Flow Rate (L/min) 2 Oxygen Delivery Method Nasal Cannula Weight: 132.4 kg Body Mass Index (BMI) 37.4 Intake and Output for Last 24 Hours 11/09/18 11/10/18 11/11/18 23:59 23:59 23:59 Intake Total 3896 / 3896 6079 / 6079 868.8 / 868.8 Output Total 1800 / 1800 1725 / 1725 550 / 550 Balance 2096 / 2096 4354 / 4354 318.8 / 318.8 General: Alert, No apparent distress HEENT: Atraumatic, Normocephalic Oral: Moist Mucosa, No Gingival or Mucosal Lesions/ Ulcerations Neck: No Nodes, Thyroid Normal Size and Texture Lungs: Clear to auscultation, Normal air movement, No rhonchi, No wheeze Cardiovascular: Irregular Rate, Tachycardic Abdomen: Bowel Sounds Present, Soft, Non Tender, Non-Distended, Hypoactive Bowel Sounds, Obese Extremities: No edema, No Calf Tenderness Skin: No rashes, No breakdown Psych/Mental Status: Normal Affect, Appropriate Laboratory Results 11/10/18 23:45: Magnesium 1.3 L, TSH 1.15 11/11/18 05:05: WBC 8.0, RBC 3.45 L, Hgb 11.5 L, Hct 34.9 L, MCV 101.2 H, MCH 33.3 H, MCHC 33.0, RDW 12.9, RDW Differential 47.1 H, Plt Count 174, MPV 10.2, Immature Gran % (Auto) 0.200, Neut % (Auto) 66.6, Lymph % (Auto) 16.2 L, [place] % (Auto) 13.8 H, Eos % (Auto) 3.1, Baso % (Auto) 0.1, Absolute Neuts (auto) 5.3, Absolute Lymphs (auto) 1.30, Total Counted Not Reportable 11/11/18 05:05: Sodium 142, Potassium 3.8, Chloride 106, Carbon Dioxide 28.0, Anion Gap 8, BUN 17, Creatinine 0.78, Estim Creat Clear Calc 70.78, Est GFR (MDRD) Af Amer 123, Est GFR (MDRD) Non-Af 102, BUN/Creatinine Ratio 21.7 H, Glucose 101, Calcium 7.7 L Current Medications Amlodipine Besylate (Norvasc) 5 mg PO DAILY [facility] Last Admin: 11/11/18 10:14 Dose: 5 mg Carvedilol (Coreg) 25 mg PO BID [facility] Last Admin: 11/11/18 10:10 Dose: 25 mg Enoxaparin Sodium (Lovenox) 140 mg SC X1 ONE Stop: 11/11/18 22:51 Folic Acid (Folic Acid) 1 mg PO DAILYCM [facility] Last Admin: 11/11/18 10:10 Dose: 1 mg Hydralazine HCl (Apresoline Iv) 10 mg IV Q4H PRN PRN PRN Reason: SBP > 160 Hydralazine HCl (Apresoline) 25 mg PO BID [facility] Last Admin: 11/11/18 10:11 Dose: 25 mg Hydrochlorothiazide (Hctz) 25 mg PO DAILY [facility] Last Admin: 11/11/18 10:11 Dose: 25 mg Lactated Ringer's () 1,000 mls @ 120 mls/hr IV .Q8H20M [facility] Last Admin: 11/11/18 07:21 Dose: 120 mls/hr Diltiazem HCl 125 mg/ Dextrose 125 mls @ 5 mls/hr IV .Q25H [facility]; Protocol Last Admin: 11/11/18 06:16 Dose: 5 mls/hr Losartan Potassium (Cozaar) 100 mg PO DAILY [facility] Last Admin: 11/11/18 10:10 Dose: 100 mg Magnesium Hydroxide (Milk Of Magnesia) 30 ml PO DAILY PRN PRN PRN Reason: Constipation Morphine Sulfate () 1 - 2 mg IV Q4H PRN PRN PRN Reason: PAIN Last Admin: 11/10/18 20:37 Dose: 2 mg Ondansetron HCl (Zofran) 4 mg IV Q8H PRN PRN PRN Reason: NAUSEA Last Admin: 11/10/18 20:37 Dose: 4 mg Pantoprazole Sodium (Protonix) 40 mg PO DAILY [facility] Last Admin: 11/11/18 10:10 Dose: 40 mg Sodium Chloride () 5 - 15 ml IV UD PRN PRN Reason: SALINE FLUSH Last Admin: 11/10/18 23:44 Dose: 10 ml Trazodone HCl (Desyrel) 50 mg PO QHS PRN PRN Reason: SLEEP Last Admin: 11/10/18 20:37 Dose: 50 mg Medical Necessity - Tobacco Use Smoking Status: Never smoker Assessment/Plan All Active Problems (Last Reviewed 11/08/18 @ 14:38 by Felipe Harley MD) Small bowel obstruction (Acute) 1. pSBO s/p GRACY on 11/08 NG clears pain control, antiemetics mgmt per general surgery. 2. Hypertensive urgency improved DC enalaprilat resume home medications and monitor now that he can take PO 3. afib with RVR improved still on IV dilt carvedilol started currently anticoagulated with Lovenox echo ordered cardiology consulted. RA chronic stable next MTX due for 11/12, which will be held given current ongoing medical and surgical issues. 4. DVT proph: SQ heparin Code Visit Inpatient E&M: 55417 Subs Hosp L2
--- NOTE | 2018-11-11 11:54 | PN_ITS ---
Patient Problems: Active and Suspected Problems (Last Reviewed 11/08/18 @ 14:38 by Felipe Harley MD) Small bowel obstruction (Acute) Subjective: Abdomen feeling better. Developed Afib w RVR last night. No palpitations. Never aware of afib previously. Vitals/I&O's: Vital Signs Temp Pulse Resp BP Pulse Ox 37.2 C 107 H 23 H 134/68 H 99 11/11/18 05:00 11/11/18 10:11 11/11/18 10:00 11/11/18 10:11 11/11/18 10:00 Oxygen Flow Rate (L/min) 2 Oxygen Delivery Method Nasal Cannula Weight: 132.4 kg Body Mass Index (BMI) 37.4 Intake and Output for Last 24 Hours 11/09/18 11/10/18 11/11/18 23:59 23:59 23:59 Intake Total 3896 / 3896 6079 / 6079 868.8 / 868.8 Output Total 1800 / 1800 1725 / 1725 550 / 550 Balance 2096 / 2096 4354 / 4354 318.8 / 318.8 General: Alert, No apparent distress HEENT: Atraumatic, Normocephalic Oral: Moist Mucosa, No Gingival or Mucosal Lesions/ Ulcerations Neck: No Nodes, Thyroid Normal Size and Texture Lungs: Clear to auscultation, Normal air movement, No rhonchi, No wheeze Cardiovascular: Irregular Rate, Tachycardic Abdomen: Bowel Sounds Present, Soft, Non Tender, Non-Distended, Hypoactive Bowel Sounds, Obese Extremities: No edema, No Calf Tenderness Skin: No rashes, No breakdown Psych/Mental Status: Normal Affect, Appropriate Laboratory Results 11/10/18 23:45: Magnesium 1.3 L, TSH 1.15 11/11/18 05:05: WBC 8.0, RBC 3.45 L, Hgb 11.5 L, Hct 34.9 L, MCV 101.2 H, MCH 33.3 H, MCHC 33.0, RDW 12.9, RDW Differential 47.1 H, Plt Count 174, MPV 10.2, Immature Gran % (Auto) 0.200, Neut % (Auto) 66.6, Lymph % (Auto) 16.2 L, [place] % (Auto) 13.8 H, Eos % (Auto) 3.1, Baso % (Auto) 0.1, Absolute Neuts (auto) 5.3, Absolute Lymphs (auto) 1.30, Total Counted Not Reportable 11/11/18 05:05: Sodium 142, Potassium 3.8, Chloride 106, Carbon Dioxide 28.0, Anion Gap 8, BUN 17, Creatinine 0.78, Estim Creat Clear Calc 70.78, Est GFR (MDRD) Af Amer 123, Est GFR (MDRD) Non-Af 102, BUN/Creatinine Ratio 21.7 H, Glucose 101, Calcium 7.7 L Current Medications Amlodipine Besylate (Norvasc) 5 mg PO DAILY [facility] Last Admin: 11/11/18 10:14 Dose: 5 mg Carvedilol (Coreg) 25 mg PO BID [facility] Last Admin: 11/11/18 10:10 Dose: 25 mg Enoxaparin Sodium (Lovenox) 140 mg SC X1 ONE Stop: 11/11/18 22:51 Folic Acid (Folic Acid) 1 mg PO DAILYCM [facility] Last Admin: 11/11/18 10:10 Dose: 1 mg Hydralazine HCl (Apresoline Iv) 10 mg IV Q4H PRN PRN PRN Reason: SBP > 160 Hydralazine HCl (Apresoline) 25 mg PO BID [facility] Last Admin: 11/11/18 10:11 Dose: 25 mg Hydrochlorothiazide (Hctz) 25 mg PO DAILY [facility] Last Admin: 11/11/18 10:11 Dose: 25 mg Lactated Ringer's () 1,000 mls @ 120 mls/hr IV .Q8H20M [facility] Last Admin: 11/11/18 07:21 Dose: 120 mls/hr Diltiazem HCl 125 mg/ Dextrose 125 mls @ 5 mls/hr IV .Q25H [facility]; Protocol Last Admin: 11/11/18 06:16 Dose: 5 mls/hr Losartan Potassium (Cozaar) 100 mg PO DAILY [facility] Last Admin: 11/11/18 10:10 Dose: 100 mg Magnesium Hydroxide (Milk Of Magnesia) 30 ml PO DAILY PRN PRN PRN Reason: Constipation Morphine Sulfate () 1 - 2 mg IV Q4H PRN PRN PRN Reason: PAIN Last Admin: 11/10/18 20:37 Dose: 2 mg Ondansetron HCl (Zofran) 4 mg IV Q8H PRN PRN PRN Reason: NAUSEA Last Admin: 11/10/18 20:37 Dose: 4 mg Pantoprazole Sodium (Protonix) 40 mg PO DAILY [facility] Last Admin: 11/11/18 10:10 Dose: 40 mg Sodium Chloride () 5 - 15 ml IV UD PRN PRN Reason: SALINE FLUSH Last Admin: 11/10/18 23:44 Dose: 10 ml Trazodone HCl (Desyrel) 50 mg PO QHS PRN PRN Reason: SLEEP Last Admin: 11/10/18 20:37 Dose: 50 mg Medical Necessity - Tobacco Use Smoking Status: Never smoker Assessment/Plan All Active Problems (Last Reviewed 11/08/18 @ 14:38 by Felipe Harlye MD) Small bowel obstruction (Acute) 1. pSBO * s/p GRACY on 11/08 * NG * clears * pain control, antiemetics * mgmt per general surgery. 2. Hypertensive urgency * improved * DC enalaprilat * resume home medications and monitor now that he can take PO 3. afib with RVR * improved * still on IV dilt * carvedilol started * currently anticoagulated with Lovenox * echo ordered * cardiology consulted. RA * chronic * stable * next MTX due for 11/12, which will be held given current ongoing medical and surgical issues. 4. DVT proph: SQ heparin Code Visit Inpatient E&M: 34873 Subs Hosp L2
--- NOTE | 2018-11-11 14:24 | PCM.CONS.C ---
Problem List (1) Atrial fibrillation Status: Acute (2) HTN (hypertension) Status: Chronic (3) Small bowel obstruction Status: Acute Reason for Consult Date of Consultation: 11/11/18 History of Present Illness: The patient is a 78 year old white male with a past medical history of hypertension who is now status post small bowel obstruction surgery who is referred for evaluation of atrial fibrillation with RVR. To the best of his knowledge he has not had any cardiovascular concerns in the past. He states he did undergo, based upon his hypertension, a transthoracic echocardiogram many years ago at [facility]. He was told that his heart was okay . He did not require any other cardiovascular follow-up. He states his blood pressures at home have been under reasonably good control with his medical regimen. He does not recall any other cardiovascular concerns such as chest discomfort or difficulty breathing, orthopnea, PND, near syncope or syncope. He does not recall any palpitations. He states he does have edema of his left lower extremity secondary to 2 previous fractures. He has been hospitalized for concerns of a small bowel obstruction. This required exploratory laparotomy and lysis of adhesions performed on 11/08/[address] Harley. He has been recuperating. However he is now entered atrial fibrillation with rapid ventricular response. He was placed in the PCU for further evaluation and care. He was started on rate control therapy with IV diltiazem. His electrocardiogram upon admission to the hospital demonstrated sinus rhythm with an occasional PVC with left axis deviation and poor R wave progression. His atrial fibrillation ECG demonstrated atrial fibrillation with a left axis deviation as well as nonspecific T wave abnormality. He states that even with the atrial fibrillation he is not noted any obvious chest discomfort. He did note when walking yesterday in the hallway he felt somewhat more short of breath. He has not noted any obvious palpitations. There is been no report of near syncope or syncope. [] Past Medical History Allergies/Adverse Reactions: Allergies No Known Allergies Allergy (Verified 11/08/18 04:34) Home Medications: Ambulatory Orders Medication Instructions Recorded Amlodipine [Norvasc] 5 mg PO DAILY 11/07/18 Carvedilol 25 mg PO BID 11/07/18 Folic Acid 1 mg PO DAILY 11/07/18 Hydroxychloroquine [Plaquenil] 1 tab PO BID 11/07/18 Losartan/Hydrochlorothiazide 1 tab PO DAILY 11/07/18 [Losartan-Hctz 100-25 mg Tab] Meloxicam 7.5 mg PO BID 11/07/18 Methotrexate 8 tab PO QWEEK 11/07/18 Omeprazole 40 mg PO DAILY 11/07/18 hydrALAZINE [Apresoline] 25 mg PO BID 11/07/18 Past Medical History (Chronic Problems): Chronic Problems (Last Reviewed 11/08/18 @ 14:38 by Felipe Harley MD) HTN (hypertension) (Chronic) Surgical History: cholecystectomy, - - Left hip replacement; facial surgery for cancer; plate placed in left forearm; and left rotator cuff surgery; - *Family History Maternal Family History: Family History (Last Reviewed 11/08/18 @ 14:38 by Felipe Harley MD) Mother Pancreatic cancer Father Heart problem Sister Breast cancer Lives: Spouse/ Significant Other Smoking Status: Never smoker Alcohol: None Drugs: None Review of Systems - Review of Systems General: Denies: Fever, Night Sweats, Fatigue Cardiovascular: Reports: Shortness of Breath. Denies: Chest Discomfort, Orthopnea, PND, Peripheral Edema, Palpitations, Lightheadedness, Dizziness, Near Syncope, Syncope Respiratory: Reports: Shortness of Breath. Denies: Cough, Sputum Production, Hemoptysis Gastrointestinal: Denies: Hematemesis, Hematochezia, Melena Genitourinary: Denies: Dysuria, Hematuria Skin: Denies: Rash Subjectve: This is a 78-year-old white male who appears resting comfortably at the moment in no acute distress. Objective: Vital Signs Temp Pulse Resp BP Pulse Ox 97.4 F L 90 23 H 116/65 98 11/11/18 11:00 11/11/18 12:00 11/11/18 12:00 11/11/18 12:00 11/11/18 12:00 Oxygen Flow Rate (L/min) 2 Oxygen Delivery Method Nasal Cannula Weight: 291 lb 14.272 oz Body Mass Index (BMI) 37.4 Intake and Output for Last 24 Hours 11/09/18 11/10/18 11/11/18 23:59 23:59 23:59 Intake Total 3896 / 3896 6079 / 6079 868.8 / 868.8 Output Total 1800 / 1800 1725 / 1725 550 / 550 Balance 2096 / 2096 4354 / 4354 318.8 / 318.8 General: Awake, Alert, Oriented x 3, Cooperative, No Acute Distress, Obese HEENT: Atraumatic, Normocephalic, PERRL, EOMI, Sclera Non Icteric Oral: Moist Mucosa Neck: Supple, Good ROM, No JVD Lungs: Clear to auscultation Cardiovascular: Irregular Rhythm, Normal S1, Normal S2 Vascular: No Carotid Bruits Abdomen: Hypoactive Bowel Sounds Extremities: Mild RLE Edema, Moderate LLE Edema Psych/Mental Status: Appropriate 11/10/18 23:45: Magnesium 1.3 L 11/11/18 05:05: WBC 8.0, RBC 3.45 L, Hgb 11.5 L, Hct 34.9 L, MCV 101.2 H, MCH 33.3 H, MCHC 33.0, RDW 12.9, RDW Differential 47.1 H, Plt Count 174, MPV 10.2, Immature Gran % (Auto) 0.200, Neut % (Auto) 66.6, Lymph % (Auto) 16.2 L, [place] % (Auto) 13.8 H, Eos % (Auto) 3.1, Baso % (Auto) 0.1, Absolute Neuts (auto) 5.3, Total Counted Not Reportable 11/11/18 05:05: Sodium 142, Potassium 3.8, Chloride 106, Carbon Dioxide 28.0, Anion Gap 8, BUN 17, Creatinine 0.78, Est GFR (MDRD) Af Amer 123, Est GFR (MDRD) Non-Af 102, BUN/Creatinine Ratio 21.7 H, Glucose 101, Calcium 7.7 L Rhythm: Atrial fibrillation EKG: As noted above Assessment/Plan 1. Atrial fibrillation The patient has developed postoperative atrial fibrillation. This may be related to a combination of his age, hypertension, his underlying acute abdominal issue and subsequent surgical procedure, however other etiologies have not necessarily been excluded. The patient does not appear to have obvious acute signs or symptoms of an acute coronary syndrome. He does not appear to be in overt CHF or pulmonary edema. He has not been screened for the possibility of thromboembolic disease. As he has been a patient in the hospital and undergone a surgical procedure this would not be an unreasonable thing to do. He can have a d-dimer level and if abnormal be screened with a chest CT scan with IV contrast. From a cardiac standpoint he will be asked to have a transthoracic echocardiogram performed to evaluate his atrial size as well as his ventricular size, wall motion, and systolic function. He may eventually need additional cardiovascular evaluation which may include additional noninvasive or invasive studies. In the interim he will continue medical management. This will include rate control therapy and as his atrial fibrillation/flutter is acute and attempt at antiarrhythmic therapy with IV amiodarone in an attempt to regain sinus rhythm. He will also be placed on systemic anticoagulant therapy with IV heparin. 2. Hypertension The patient's blood pressure will be followed. His medications will be adjusted as needed. 3. Small bowel obstruction status post surgery The patient is being followed by internal medicine and general surgery. This note was generated with [employer] dictation software. It may contain incorrect words, spelling, and punctuation that were not noted in checking the note before signing.
[2018-11-11 15:11] LABS: D-Dimer Quantitative (DVT/PE) 3.33 FEU/ug/m (0.27-0.49)
--- NOTE | 2018-11-11 15:15 | CT_ITS ---
STUDY: CTA CHEST REASON FOR EXAM: Male, 78 years old. Elevated d-dimer with recent bowel surgery RADIATION DOSAGE (If Supplied By Facility): CTDIvol = ( 33.34 ) mGy, DLP = ( 788.58 ) mGycm TECHNIQUE: The examination was performed with the intravenous administration of 100 ml of Isovue 370 contrast material. Post-processing of the angiographic images was performed, with multiplanar reformation and 3D reconstruction. Exam quality diminished due to respiratory motion. Individualized dose optimization techniques were used for this CT. COMPARISON: None. FINDINGS: Normal enhancement of the main pulmonary artery and right and left pulmonary arteries. Normal enhancement of the bilateral peripheral pulmonary arteries. There is no demonstrated pulmonary embolism. Limited evaluation due to motion artifact. There is atherosclerotic calcification of the aortic arch with tortuosity. There is no demonstrated aortic dissection. Normal heart and pericardium. There are calcifications of the coronary arteries. Normal mediastinum. Normal hilar regions. Normal visualized trachea and bronchi. The lungs are well expanded. Mild atelectasis in the bilateral lung bases but no airspace consolidation. Small bilateral pleural effusions. Normal chest wall structures. There are degenerative changes of thoracic spine. Partially visualized cyst of the left kidney measures [address]/CTA Chest W/WO Contrast IMPRESSION: 1. No central or obvious segmental pulmonary embolism. Exam quality diminished due to respiratory motion. 2. Small bilateral pleural effusions with lower lobe atelectasis. 3. Atherosclerosis including coronary arteries. Electronically Signed: Garrett Portillo MD at 17:01 EST , Service support ,
[2018-11-11 16:57] LABS: International Normalized Ratio 1.2; Partial Thromboplast Time 32.5 Seconds (24.1-36.2); Prothrombin Time (Protime)PT. 14.7 SECONDS (11.7-14.9)
[2018-11-11] MEDS: 0.9% NaCl Peripheral Flush Adult/Peds IV ×3 (17:20→17:42)
[2018-11-11] MEDS: HEPARIN/D5w 25,000 UNITS 25,000 UNITS/250 ML IV.SOLN. 17 UNITS IV (17:20)
[2018-11-12] VITALS (41 sets, daily range): BP systolic 70–136; BP diastolic 49–86; PULSE 72–114; RESP 16–30; TEMP 36.4–37.2; O2SAT 90–98
[2018-11-12 00:20] LABS: Partial Thromboplast Time 31.6 Seconds (24.1-36.2)
[2018-11-12] MEDS: Heparin Injection (Vial) 5,000 UNIT/ML VIAL IV ×4 (02:19→23:08)
[2018-11-12] MEDS: HEPARIN/D5w 25,000 UNITS 25,000 UNITS/250 ML IV.SOLN. 17 UNITS IV ×2 (05:28→17:19)
--- NOTE | 2018-11-12 05:55 | EKG12_ITS ---
Test Reason : AM EKG Blood Pressure : / mmHG Vent. Rate : 086 BPM Atrial Rate : 101 BPM P-R Int : 000 ms QRS Dur : 100 ms QT Int : 384 ms P-R-T Axes : 000 -28 079 degrees QTc Int : 459 ms Atrial fibrillation Leftward axis Nonspecific T wave abnormality Confirmed by CLAUDIA SHIPMAN, LETITIA ([id number]), television news video editor DANIEL HENDRIX ([id number]) on 11/14/2018 3:02:50 PM Referred By: LUDWIG Confirmed By:LETITIA TAYLOR MD
[2018-11-12 06:03] LABS: Absolute Lymphocyte Count 1.67 X10^3/ul (0.83-4.51); Absolute Neutrophil Count 8.1 X10^3/uL (2.0-7.7); Basophil# 0.02 X10^3/uL; Basophil% 0.2 % (0-1); Eosinophil# 0.46 X10^3/uL; Eosinophils% 3.9 % (0-5); Hematocrit 36.4 % (40-54); Hemoglobin 12.3 g/dl (13.0-16.5); Lymphocyte # 1.67 X10^3/ul (4.0); Lymphocyte % 14.3 % (19-41); Mean Corp Hgb Conc 33.8 g/gl (32-36); Mean Corpuscular Hgb 34.3 pg (27.0-32.0); Mean Corpuscular Volume 101.4 fL (80-94); Mean Platelet Vol. 10.1 fl (6.2-12.0); Monocyte# 1.43 X10^3/uL; Monocyte% 12.2 % (0-10); Neutrophil # 8.05 X10^3/uL (2.7-7.7); Neutrophil % 68.8 % (47-70); Platelet Count 215 K/mm3 (150-450); RBC Distribution Width CV 12.4 % (11.6-14.6); RBC Distribution Width SD 44.4 fl (35.1-43.9); Red Blood Count 3.59 M/mm3 (4.6-6.2); White Blood Count 11.7 K/mm3 (4.4-11.0)
[2018-11-12 06:06] LABS: POSITIVE COUNT NO; POSITIVE DIFFERENTIAL NO; POSITIVE MORPHOLOGY NO
[2018-11-12 06:22] LABS: Anion Gap 8 (5-15); BUN 17 mg/dL (7-18); BUN/Creat Ratio 16.7 RATIO (10-20); Chloride 105 mmol/L (98-107); Creatinine, Serum 1.02 mg/dL (0.70-1.30); EST Glomerular Filtration Rate 75 mL/min (>60); Est Glom Filt Rate - Afr Amer 91 mL/min (>60); Glucose 132 mg/dL (74-106); Magnesium 1.7 mg/dL (1.6-2.6); Potassium 3.8 mmol/L (3.5-5.1); Sodium Level 140 mmol/L (136-145)
[2018-11-12] MEDS: 0.9% NaCl Peripheral Flush Adult/Peds IV ×2 (09:26→16:39)
[2018-11-12] MEDS: Losartan Potassium 100 MG Tablet PO (09:35)
[2018-11-12] MEDS: hydrALAZINE 25 MG Tablet PO ×2 (09:35→22:08)
[2018-11-12] MEDS: Pantoprazole Sodium 40 MG Tablet PO (09:36)
[2018-11-12] MEDS: Folic Acid 1 MG Tablet PO (09:36)
[2018-11-12] MEDS: hydroCHLOROthiazide 25 MG Tablet PO (09:36)
[2018-11-12] MEDS: Carvedilol 25 MG Tablet PO ×2 (09:36→22:09)
--- NOTE | 2018-11-12 10:27 | CASEMGMT ---
Addendum entered by Yvonne Mullen 11/12/18 15:15: Green sheet on chart for pt to go to TCU as pt is not ready today. PARDEEP Aguirre, [employer] Original Note: SW met w/pt in regard to discharge plan. SW reviewed options w/pt again. Pt would like to go to TCU. SW let pt know that they do have a bed for pt when he is ready. Pt talked about his hospital stay, his new diagnosis of heart issues. Support offered to pt. Dr. Harley then walked in and let pt know he could be discharged today. SW let pt know if he is ready TCU has a bed for pt today. SW called Natalia in TCU and let her know that pt would like to come to TCU and may be ready today. Natalia confirmed they have a bed for pt today. SW will continue to follow. PARDEEP Aguirre, [employer]
[2018-11-12 16:30] LABS: Partial Thromboplast Time 34.1 Seconds (24.1-36.2)
--- NOTE | 2018-11-12 17:40 | PN.CARD_ITS ---
Subjectve: The patient states he feels somewhat better. He does not note any chest discomfort or worsening shortness of breath or dyspnea. He has not had any o vert palpitations. He did have some element of postprandial nausea today. He states he has had loose bowel movements. Objective: Vital Signs Temp Pulse Resp BP Pulse Ox 98.5 F 98 18 122/75 H 96 11/12/18 14:39 11/12/18 17:00 11/12/18 17:00 11/12/18 17:00 11/12/18 17:00 Oxygen Flow Rate (L/min) 2 Oxygen Delivery Method Room Air Weight: 291 lb 14.272 oz Body Mass Index (BMI) 37.4 Intake and Output for Last 24 Hours 11/10/18 11/11/18 11/12/18 23:59 23:59 23:59 Intake Total 6079 / 6079 3508.2 / 3508.2 748.2 / 748.2 Output Total 1725 / 1725 550 / 550 250 / 250 Balance 4354 / 4354 2958.2 / 2958.2 498.2 / 498.2 General: Awake, Alert, Oriented x 3, Cooperative, No Acute Distress, Obese HEENT: Atraumatic, Normocephalic, PERRL, EOMI, Sclera Non Icteric Oral: Moist Mucosa Neck: Supple, Good ROM, No JVD Lungs: Clear to auscultation Cardiovascular: Irregular Rhythm, Normal S1, Normal S2 Abdomen: Bowel Sounds Present, Soft Extremities: Mild RLE Edema, Mild LLE Edema Neurological: No Focal Motor or Sensory Deficit Psych/Mental Status: Appropriate 11/11/18 23:30: APTT 31.6 11/12/18 05:25: Sodium 140, Potassium 3.8, Chloride 105, Carbon Dioxide 27.0, Anion Gap 8, BUN 17, Creatinine 1.02, Est GFR (MDRD) Af Amer 91, Est GFR (MDRD) Non-Af 75, BUN/Creatinine Ratio 16.7, Glucose 132 H, Calcium 8.0 L, Magnesium 1.7 11/12/18 05:25: WBC 11.7 H, RBC 3.59 L, Hgb 12.3 L, Hct 36.4 L, MCV 101.4 H, MCH 34.3 H, MCHC 33.8, RDW 12.4, RDW Differential 44.4 H, Plt Count 215, MPV 10.1, Immature Gran % (Auto) 0.600, Neut % (Auto) 68.8, Lymph % (Auto) 14.3 L, [place] % (Auto) 12.2 H, Eos % (Auto) 3.9, Baso % (Auto) 0.2, Absolute Neuts (auto) 8.1 H, Total Counted Not Reportable 11/12/18 08:40: APTT 32.0 11/12/18 15:40: APTT 34.1 Rhythm: Atrial fibrillation Medical Necessity - Tobacco Use Smoking Status: Never smoker Assessment/Plan 1. Atrial fibrillation The patient has developed postoperative atrial fibrillation. This may be related to a combination of his age, hypertension, his underlying acute abdominal issue and subsequent surgical procedure, however other etiologies have not necessarily been excluded. The patient does not appear to have obvious acute signs or symptoms of an acute coronary syndrome. He does not appear to be in overt CHF or pulmonary edema. He is continuing electrolyte supplementation. He is continuing rate control therapy as tolerated. He is continuing antiarrhythmic therapy. He is also continuing anticoagulant therapy. Hopefully as his rate comes under better control he can become transition to all oral rate control therapy, oral antiarrhythmic therapy, and subsequently oral anticoagulant therapy. If he remains symptomatically and hemodynamically stable then, if he does not regain sinus rhythm, he can be considered for future DC cardioversion after he recuperates from his recent acute illness. 2. Hypertension The patient's blood pressure will be followed. His medications will be adjusted as needed. 3. Small bowel obstruction status post surgery The patient is being followed by internal medicine and general surgery. This note was generated with [employer] dictation software. It may contain incorrect words, spelling, and punctuation that were not noted in checking the note before signing.
--- NOTE | 2018-11-12 17:43 | PCM.PROGNOTE ---
Patient Problems: Active and Suspected Problems (Last Reviewed 11/08/18 @ 14:38 by Felipe Harley MD) Small bowel obstruction (Acute) Atrial fibrillation (Acute) Subjective: Mr. Huerta is a 78-year-old male with a past medical history of hypertension admitted to the hospital with a diagnosis of small bowel obstruction and taken to surgery 11/08/2018 for exploratory laparoscopy and lysis of adhesions. Postoperatively he developed atrial fibrillation with rapid ventricular response. He was seen in consultation by Dr. Sabillon yesterday and he was started on Amiodarone. He is also on Coreg. This AM he was also on a cardizem infusion but the BP was low and it was discontinued. Events of the past 24 hours of been reviewed. Afebrile Current blood pressure is 122/75 and the heart rate is 98. He is 96% saturated on room air. All lab was personally reviewed. The white blood cell count today is elevated at 11.7, up from 8.0 yesterday. Differential is unremarkable. Hemoglobin is 12.3 and stable. Platelets are within normal limits. Potassium is 3.8 and the BUN is 17 with a creatinine of 1.02. Magnesium is 1.7. Echocardiogram was performed today and was technically difficult. There appeared to be grossly normal left ventricular size, wall motion and systolic function and the estimated ejection fraction was 55%. There was no demonstrated pulmonary emboli on CTA of the chest done 11/11/2018. There were small bilateral pleural effusions. There is a small left renal cyst. Objective: PHYSICAL EXAM: GENERAL: alert, oriented X 3, Cooperative, NAD, eating in a chair with his legs dependent ORAL: moist mucosa, no mucosal lesions NECK: No JVD, supple, trachea midline LUNGS: CTA, symmetric chest expansion, diminished breath sounds throughout, especially in the bases HEART: Irregular rhythm, Normal S1 and S2, no gallop or murmur appreciated ABDOMEN: soft, NT, ND, BS present, no guarding with palpation, obese EXTREMITIES: + edema, no cyanosis, no calf tenderness SKIN: No rashes, no breakdown NEUROLOGIC: no focal neurologic deficits PSYCH: appropriate, normal affect, pleasant - Physical Exam Vital Signs Temp Pulse Resp BP Pulse Ox 98.5 F 98 18 122/75 H 96 11/12/18 14:39 11/12/18 17:00 11/12/18 17:00 11/12/18 17:00 11/12/18 17:00 Oxygen Flow Rate (L/min) 2 Oxygen Delivery Method Room Air Weight: 291 lb 14.272 oz Body Mass Index (BMI) 37.4 Intake and Output for Last 24 Hours 11/10/18 11/11/18 11/12/18 23:59 23:59 23:59 Intake Total 6079 / 6079 3508.2 / 3508.2 748.2 / 748.2 Output Total 1725 / 1725 550 / 550 250 / 250 Balance 4354 / 4354 2958.2 / 2958.2 498.2 / 498.2 Laboratory Tests Past 24 Hrs 11/11/18 11/12/18 11/12/18 23:30 05:25 05:25 WBC 11.7 H RBC 3.59 L Hgb 12.3 L Hct 36.4 L MCV 101.4 H MCH 34.3 H MCHC 33.8 RDW 12.4 RDW Differential 44.4 H Plt Count 215 MPV 10.1 Immature Gran % (Auto) 0.600 Neut % (Auto) 68.8 Lymph % (Auto) 14.3 L [place] % (Auto) 12.2 H Eos % (Auto) 3.9 Baso % (Auto) 0.2 Absolute Neuts (auto) 8.1 H Absolute Lymphs (auto) 1.67 Total Counted Not Reportable APTT 31.6 Sodium 140 Potassium 3.8 Chloride 105 Carbon Dioxide 27.0 Anion Gap 8 BUN 17 Creatinine 1.02 Estim Creat Clear Calc 69.40 Est GFR (MDRD) Af Amer 91 Est GFR (MDRD) Non-Af 75 BUN/Creatinine Ratio 16.7 Glucose 132 H Calcium 8.0 L Magnesium 1.7 11/12/18 11/12/18 08:40 15:40 WBC RBC Hgb Hct MCV MCH MCHC RDW RDW Differential Plt Count MPV Immature Gran % (Auto) Neut % (Auto) Lymph % (Auto) [place] % (Auto) Eos % (Auto) Baso % (Auto) Absolute Neuts (auto) Absolute Lymphs (auto) Total Counted APTT 32.0 34.1 Sodium Potassium Chloride Carbon Dioxide Anion Gap BUN Creatinine Estim Creat Clear Calc Est GFR (MDRD) Af Amer Est GFR (MDRD) Non-Af BUN/Creatinine Ratio Glucose Calcium Magnesium Medical Necessity - Tobacco Use Smoking Status: Never smoker Assessment/Plan All Active Problems (Last Reviewed 11/08/18 @ 14:38 by Felipe Harley MD) Small bowel obstruction (Acute) Atrial fibrillation (Acute) Impressions 1. Small bowel obstruction-status post exploratory laparotomy with lysis of adhesions 2. New onset atrial fibrillation with rapid ventricular response 3. Hypertensive urgency-improved 4. Rheumatoid arthritis on methotrexate 5. Borderline hypokalemia and hypomagnesemia 6. Morbid obesity 7. Macrocytic anemia-likely secondary to blood loss 8. Hypertension 9. Hypotension-likely secondary to intravenous Cardizem Continue amiodarone infusion and Coreg Cardizem infusion has been discontinued Supplement the potassium to maintain the potassium around 4 Supplement magnesium to keep the magnesium at around 2 Recheck lab in the a.m. Continue heparin infusion..... Will discuss transition to an oral anticoagulant with Dr. Sabillon Code Visit Inpatient E&M: 80780 Subs Hosp L2
[2018-11-12 22:58] LABS: Partial Thromboplast Time 42.8 Seconds (24.1-36.2)
[2018-11-13] VITALS (24 sets, daily range): BP systolic 102–145; BP diastolic 58–99; PULSE 89–115; RESP 16–29; TEMP 36.6–37.2; O2SAT 92–100
--- NOTE | 2018-11-13 00:06 | PCM.PN.SRG ---
Patient Problems: Active and Suspected Problems (Last Reviewed 11/08/18 @ 14:38 by Felipe Harley MD) Small bowel obstruction (Acute) Atrial fibrillation (Acute) Subjective: pain well control + flatus Objective: dressing dry - Physical Exam Vital Signs Temp Pulse Resp BP Pulse Ox 99 F 90 20 H 110/62 94 11/12/18 23:23 11/12/18 23:23 11/12/18 23:23 11/12/18 23:23 11/12/18 23:23 Oxygen Flow Rate (L/min) 2 Oxygen Delivery Method Nasal Cannula Weight: 291 lb 14.272 oz Body Mass Index (BMI) 37.4 Intake and Output for Last 24 Hours 11/11/18 11/12/18 11/13/18 23:59 23:59 23:59 Intake Total 3508.2 / 3508.2 1687.2 / 1687.2 Output Total 550 / 550 800 / 800 Balance 2958.2 / 2958.2 887.2 / 887.2 Laboratory Tests Past 24 Hrs 11/11/18 11/12/18 11/12/18 23:30 05:25 05:25 WBC 11.7 H RBC 3.59 L Hgb 12.3 L Hct 36.4 L MCV 101.4 H MCH 34.3 H MCHC 33.8 RDW 12.4 RDW Differential 44.4 H Plt Count 215 MPV 10.1 Immature Gran % (Auto) 0.600 Neut % (Auto) 68.8 Lymph % (Auto) 14.3 L [place] % (Auto) 12.2 H Eos % (Auto) 3.9 Baso % (Auto) 0.2 Absolute Neuts (auto) 8.1 H Absolute Lymphs (auto) 1.67 Total Counted Not Reportable APTT 31.6 Sodium 140 Potassium 3.8 Chloride 105 Carbon Dioxide 27.0 Anion Gap 8 BUN 17 Creatinine 1.02 Estim Creat Clear Calc 69.40 Est GFR (MDRD) Af Amer 91 Est GFR (MDRD) Non-Af 75 BUN/Creatinine Ratio 16.7 Glucose 132 H Calcium 8.0 L Magnesium 1.7 11/12/18 11/12/18 11/12/18 08:40 15:40 22:40 WBC RBC Hgb Hct MCV MCH MCHC RDW RDW Differential Plt Count MPV Immature Gran % (Auto) Neut % (Auto) Lymph % (Auto) [place] % (Auto) Eos % (Auto) Baso % (Auto) Absolute Neuts (auto) Absolute Lymphs (auto) Total Counted APTT 32.0 34.1 42.8 H Sodium Potassium Chloride Carbon Dioxide Anion Gap BUN Creatinine Estim Creat Clear Calc Est GFR (MDRD) Af Amer Est GFR (MDRD) Non-Af BUN/Creatinine Ratio Glucose Calcium Magnesium Medical Necessity - Tobacco Use Smoking Status: Never smoker Assessment/Plan All Active Problems (Last Reviewed 11/08/18 @ 14:38 by Felipe Harley MD) Small bowel obstruction (Acute) Atrial fibrillation (Acute) ok to go to rehab when med stable
[2018-11-13] MEDS: HEPARIN/D5w 25,000 UNITS 25,000 UNITS/250 ML IV.SOLN. 17 UNITS IV ×2 (01:16→11:32)
[2018-11-13 06:29] LABS: Partial Thromboplast Time 35.3 Seconds (24.1-36.2)
[2018-11-13 06:30] LABS: Anion Gap 9 (5-15); BUN 14 mg/dL (7-18); BUN/Creat Ratio 14.9 RATIO (10-20); Calcium,Total 8.1 mg/dL (8.5-10.1); Chloride 103 mmol/L (98-107); Creatinine, Serum 0.94 mg/dL (0.70-1.30); EST Glomerular Filtration Rate 82 mL/min (>60); Est Glom Filt Rate - Afr Amer 100 mL/min (>60); Glucose 120 mg/dL (74-106); Magnesium 1.9 mg/dL (1.6-2.6); Phosphorus 2.4 mg/dL (2.5-4.9); Potassium 3.9 mmol/L (3.5-5.1); Sodium Level 140 mmol/L (136-145)
[2018-11-13] MEDS: Heparin Injection (Vial) 5,000 UNIT/ML VIAL IV (06:42)
--- NOTE | 2018-11-13 08:10 | PN.SURG_ITS ---
Patient Problems: Active and Suspected Problems (Last Reviewed 11/08/18 @ 14:38 by Felipe Harley MD) Small bowel obstruction (Acute) Atrial fibrillation (Acute) Subjective: Patient tolerating diet denies abdominal pain except mild when he coughs, having bowel function - Physical Exam General: Alert, Oriented x3, Cooperative, No apparent distress HEENT: Atraumatic Abdomen: Soft, Non-Distended, Tender - Minimal at incision, clean dry intact with Steri's, resolving ecchymosis inferiorly Vital Signs Temp Pulse Resp BP Pulse Ox 98.9 F 108 H 25 H 133/86 H 95 11/13/18 05:00 11/13/18 07:00 11/13/18 07:00 11/13/18 07:00 11/13/18 07:34 Oxygen Flow Rate (L/min) 2 Oxygen Delivery Method Room Air Weight: 291 lb 14.272 oz Body Mass Index (BMI) 37.4 Intake and Output for Last 24 Hours 11/11/18 11/12/18 11/13/18 23:59 23:59 23:59 Intake Total 3508.2 / 3508.2 2291.2 / 2291.2 120 / 120 Output Total 550 / 550 1600 / 1600 375 / 375 Balance 2958.2 / 2958.2 691.2 / 691.2 -255 / -255 Laboratory Tests Past 24 Hrs 11/12/18 11/12/18 11/12/18 08:40 15:40 22:40 APTT 32.0 34.1 42.8 H Sodium Potassium Chloride Carbon Dioxide Anion Gap BUN Creatinine Estim Creat Clear Calc Est GFR (MDRD) Af Amer Est GFR (MDRD) Non-Af BUN/Creatinine Ratio Glucose Calcium Phosphorus Magnesium 11/13/18 11/13/18 05:15 05:15 APTT 35.3 Sodium 140 Potassium 3.9 Chloride 103 Carbon Dioxide 28.0 Anion Gap 9 BUN 14 Creatinine 0.94 Estim Creat Clear Calc 75.30 Est GFR (MDRD) Af Amer 100 Est GFR (MDRD) Non-Af 82 BUN/Creatinine Ratio 14.9 Glucose 120 H Calcium 8.1 L Phosphorus 2.4 L Magnesium 1.9 Medical Necessity - Tobacco Use Smoking Status: Never smoker Assessment/Plan All Active Problems (Last Reviewed 11/08/18 @ 14:38 by Felipe Harley MD) Small bowel obstruction (Acute) Atrial fibrillation (Acute) Postop day 5, new and onset A. fib with RVR Tolerating regular diet OK to go to rehab when medically stable Annabella Hines M.D. Pager: [phone] [facility] [address] [place] [address], [facility], [address] [place] [address] Office: [phone]
[2018-11-13] MEDS: Folic Acid 1 MG Tablet PO (09:49)
[2018-11-13] MEDS: hydrALAZINE 25 MG Tablet PO (09:49)
[2018-11-13] MEDS: Magnesium Oxide 400 MG Tablet PO (09:49)
[2018-11-13] MEDS: Losartan Potassium 100 MG Tablet PO (09:51)
[2018-11-13] MEDS: hydroCHLOROthiazide 25 MG Tablet PO (09:51)
[2018-11-13] MEDS: Pantoprazole Sodium 40 MG Tablet PO (09:51)
[2018-11-13] MEDS: Carvedilol 25 MG Tablet PO (09:51)
[2018-11-13 13:20] LABS: Partial Thromboplast Time > 250.0 Seconds (24.1-36.2)
--- NOTE | 2018-11-13 13:25 | PN.CARD_ITS ---
Subjectve: Patient is awake and alert. He denies any ongoing chest discomfort or difficulty breathing. He states prior to his hospitalization he was up and act klever and ambulating at home going to his exercise facility 3 days a week, being out in the [place], without any obvious concerns of chest discomfort or worsening shortness of breath/dyspnea. He also denies any ongoing sensation of his atrial fibrillation with respect to palpitations or changes in heart rate. Objective: Vital Signs Temp Pulse Resp BP Pulse Ox 98.0 F 113 H 22 H 134/58 H 98 11/13/18 08:00 11/13/18 11:00 11/13/18 11:00 11/13/18 11:00 11/13/18 11:00 Oxygen Flow Rate (L/min) 2 Oxygen Delivery Method Room Air Weight: 291 lb 14.272 oz Body Mass Index (BMI) 37.4 Intake and Output for Last 24 Hours 11/11/18 11/12/18 11/13/18 23:59 23:59 23:59 Intake Total 3508.2 / 3508.2 2291.2 / 2291.2 120 / 120 Output Total 550 / 550 1600 / 1600 375 / 375 Balance 2958.2 / 2958.2 691.2 / 691.2 -255 / -255 General: Awake, Alert, Oriented x 3, Cooperative, No Acute Distress, Obese HEENT: Atraumatic, Normocephalic, PERRL, EOMI, Sclera Non Icteric Oral: Moist Mucosa Neck: Supple, Good ROM, No JVD Lungs: Clear to auscultation Cardiovascular: Irregular Rhythm, Normal S1, Normal S2 Abdomen: Bowel Sounds Present, Soft Extremities: - - Positive bilateral lower extremity edema Psych/Mental Status: Appropriate 11/12/18 15:40: APTT 34.1 11/12/18 22:40: APTT 42.8 H 11/13/18 05:15: Sodium 140, Potassium 3.9, Chloride 103, Carbon Dioxide 28.0, Anion Gap 9, BUN 14, Creatinine 0.94, Est GFR (MDRD) Af Amer 100, Est GFR (MDRD) Non-Af 82, BUN/Creatinine Ratio 14.9, Glucose 120 H, Calcium 8.1 L, Phosphorus 2.4 L, Magnesium 1.9 11/13/18 05:15: APTT 35.3 11/13/18 12:45: APTT > 250.0 H* Rhythm: Atrial fibrillation Medical Necessity - Tobacco Use Smoking Status: Never smoker Assessment/Plan 1. Atrial fibrillation The patient has developed postoperative atrial fibrillation. This may be related to a combination of his age, hypertension, his underlying acute abdominal issue and subsequent surgical procedure, however other etiologies have not necessarily been excluded. The patient does not appear to have obvious acute signs or symptoms of an acute coronary syndrome. He does not appear to be in overt CHF or pulmonary edema. At the present time he will continue a combination of rate limiting therapy, antiarrhythmic therapy, and anticoagulant therapy. Attempt will be made to alter his medications from IV to oral. Hopefully he will have good absorption of his oral medications and maintain adequate rate control and appropriate anticoagulation control. If the patient's rhythm does not return to sinus rhythm over time then consideration may have to be given to the need for a synchronized biphasic DC cardioversion which depending upon the timing of such may or may not need to be proceeded by a SEFERINO. 2. Hypertension The patient's blood pressure will be followed. His medications will be adjusted as needed. 3. Small bowel obstruction status post surgery The patient is being followed by internal medicine and general surgery. This note was generated with [employer] dictation software. It may contain incorrect words, spelling, and punctuation that were not noted in checking the note before signing.
[2018-11-13] MEDS: Digoxin 250 MCG/ML Ampul 500 MCG IV (14:35)
[2018-11-13] MEDS: Amiodarone 200 MG Tablet PO ×2 (14:36→21:01)
--- NOTE | 2018-11-13 14:46 | PCM.PROGNOTE ---
Patient Problems: Active and Suspected Problems (Last Reviewed 11/08/18 @ 14:38 by Felipe Harley MD) Small bowel obstruction (Acute) Atrial fibrillation (Acute) Subjective: All events of the past 24 hours of been reviewed. Telemetry today shows persistent atrial fibrillation with increased heart rates from 110 this morning at 0800 to 113 and the low 120's. He was given 500 mcg of dig by Dr. Sabillon today. He has been converted to Xarelto 20 mg daily and has also been started on oral amiodarone 200 mg 3 times daily. He remains on Coreg 25 mg p.o. twice daily. Blood pressures are within normal limits today and he has had no recurrent hypotension since discontinuation of Cardizem infusion. Pulse ox is 95-98% saturation on room air. All lab was personally reviewed. Potassium is 3.9 today following supplementation yesterday and his magnesium is 1.9. Phosphorus is low at 2.4. No complaints. Denies chest pain and shortness of breath. Denies lightheadedness. Did not sleep very well in the recliner last night Objective: GENERAL: alert, oriented X 3, Cooperative, NAD, eating in a chair with his legs dependent ORAL: moist mucosa, no mucosal lesions NECK: No JVD, supple, trachea midline LUNGS: CTA, symmetric chest expansion, diminished breath sounds throughout, especially in the bases HEART: Irregular rhythm, Normal S1 and S2, no gallop or murmur appreciated ABDOMEN: soft, NT, ND, BS present, no guarding with palpation, obese EXTREMITIES: + edema, no cyanosis, no calf tenderness SKIN: No rashes, no breakdown NEUROLOGIC: no focal neurologic deficits PSYCH: appropriate, normal affect, pleasant - Physical Exam Vital Signs Temp Pulse Resp BP Pulse Ox 98.7 F 102 H 26 H 102/62 95 11/13/18 14:00 11/13/18 14:35 11/13/18 14:00 11/13/18 14:35 11/13/18 14:00 Oxygen Flow Rate (L/min) 2 Oxygen Delivery Method Room Air Weight: 291 lb 14.272 oz Body Mass Index (BMI) 37.4 Intake and Output for Last 24 Hours 11/11/18 11/12/18 11/13/18 23:59 23:59 23:59 Intake Total 3508.2 / 3508.2 2291.2 / 2291.2 940 / 940 Output Total 550 / 550 1600 / 1600 375 / 375 Balance 2958.2 / 2958.2 691.2 / 691.2 565 / 565 Laboratory Tests Past 24 Hrs 11/12/18 11/12/18 11/13/18 15:40 22:40 05:15 APTT 34.1 42.8 H Sodium 140 Potassium 3.9 Chloride 103 Carbon Dioxide 28.0 Anion Gap 9 BUN 14 Creatinine 0.94 Estim Creat Clear Calc 75.30 Est GFR (MDRD) Af Amer 100 Est GFR (MDRD) Non-Af 82 BUN/Creatinine Ratio 14.9 Glucose 120 H Calcium 8.1 L Phosphorus 2.4 L Magnesium 1.9 11/13/18 11/13/18 05:15 12:45 APTT 35.3 > 250.0 H* Sodium Potassium Chloride Carbon Dioxide Anion Gap BUN Creatinine Estim Creat Clear Calc Est GFR (MDRD) Af Amer Est GFR (MDRD) Non-Af BUN/Creatinine Ratio Glucose Calcium Phosphorus Magnesium Medical Necessity - Tobacco Use Smoking Status: Never smoker Assessment/Plan All Active Problems (Last Reviewed 11/08/18 @ 14:38 by Felipe Harley MD) Small bowel obstruction (Acute) Atrial fibrillation (Acute) Impressions 1. Small bowel obstruction-status post exploratory laparotomy with lysis of adhesions 2. New onset atrial fibrillation with rapid ventricular response 3. Hypertensive urgency-improved 4. Rheumatoid arthritis on methotrexate 5. Borderline hypokalemia and hypomagnesemia 6. Morbid obesity 7. Macrocytic anemia-likely secondary to blood loss 8. Hypertension 9. Hypotension-likely secondary to intravenous Cardizem Started on amiodarone 200 mg p.o. 3 times daily He received 500 mcg of digoxin today and initially this controlled his heart rate but heart rate is now up into the 105-115 range again at rest. Increase Coreg to 37.5 mg twice daily Continue Xarelto ordered by Dr. Sabillon. Continue to supplement potassium to keep the potassium at 4 and continue the Mag Ox supplement to keep the magnesium at 2. K-Phos again today. Recheck Lab in the AM Code Visit Inpatient E&M: 13236 Subs Hosp L2
[2018-11-13] MEDS: Rivaroxaban 20 MG Tablet PO (17:49)
[2018-11-13] MEDS: Carvedilol 25 MG Tablet 37.5 MG PO (20:57)
[2018-11-13] MEDS: MELATONIN 3 MG TABLET 6 MG PO (21:01)
[2018-11-14] VITALS (10 sets, daily range): BP systolic 102–116; BP diastolic 67–73; PULSE 76–98; RESP 18; TEMP 36.6–37; O2SAT 92–96
[2018-11-14] MEDS: Amiodarone 200 MG Tablet PO ×2 (06:38→14:38)
[2018-11-14 07:45] LABS: Anion Gap 8 (5-15); BUN 13 mg/dL (7-18); BUN/Creat Ratio 12.7 RATIO (10-20); Calcium,Total 7.8 mg/dL (8.5-10.1); Chloride 104 mmol/L (98-107); Creatinine, Serum 1.02 mg/dL (0.70-1.30); EST Glomerular Filtration Rate 75 mL/min (>60); Est Glom Filt Rate - Afr Amer 91 mL/min (>60); Glucose 118 mg/dL (74-106); Magnesium 1.5 mg/dL (1.6-2.6); Potassium 4.1 mmol/L (3.5-5.1); Sodium Level 139 mmol/L (136-145)
[2018-11-14 08:01] LABS: Phosphorus 3.4 mg/dL (2.5-4.9)
[2018-11-14] MEDS: Losartan Potassium 100 MG Tablet PO (08:45)
[2018-11-14] MEDS: hydroCHLOROthiazide 25 MG Tablet PO (08:45)
[2018-11-14] MEDS: Folic Acid 1 MG Tablet PO (08:45)
[2018-11-14] MEDS: Magnesium Oxide 400 MG Tablet PO (08:45)
[2018-11-14] MEDS: Pantoprazole Sodium 40 MG Tablet PO (08:45)
[2018-11-14] MEDS: Carvedilol 25 MG Tablet 37.5 MG PO (08:46)
--- NOTE | 2018-11-14 11:57 | CASEMGMT ---
Addendum entered by Kathrin Lafleur 11/14/18 12:11: Physician signed order for outpatient PT/OT. SW spoke with [facility] and they just would like the order. SW faxed his order to [phone]. SW will give patient the original order and let him know he needs to call [facility] to set up visits. Plan; d/c home with outpatient therapy at [facility] in [place]. Kathrin AUSTIN Original Note: KASIA spoke with therapy as patient would like to go home. They feel patient would be fine for home with home health. KASIA spoke with patient and he does not want to be homebound for home health. He said he normally goes to [facility] in [place] to work out. He would like to go there for therapy. KASIA told him we will work on this. Kathrin AUSTIN
--- NOTE | 2018-11-14 12:40 | PCM.DC ---
- Discharge Diagnoses Current Active Problems: Current Active and Chronic Problems (Last Reviewed 11/08/18 @ 14:38 by Felipe Harley MD) Small bowel obstruction (Acute) - S/P ex lap with GRACY Atrial fibrillation with RVR (Acute) HTN (hypertension) (Chronic) Hypokalemia Hypomagnesemia You will use the following diet at home:: Cardiac Your food should be the consistency of: Regular Your liquids should be the consistency of: Regular/Thin Discharge Activity: Return to Normal Activity - gradually Call your doctor if your incision/area has: Continuous Slow Oozing, Sudden Increased Bleeding, Increased Pain/ Swelling, Increased Redness, Foul Smelling Discharge Call your doctor if you observe: Fever of 101 or Higher, Inability to have a bowel movement, Shortness of breath, Dizziness, Fainting spells, Swelling in the ankles, Chest pain, Uncontrolled pain Allergies/Adverse Reactions: Allergies No Known Allergies Allergy (Verified 11/08/18 04:34) Medications to take at Discharge Folic Acid 1 mg PO DAILY 11/07/18 Hydroxychloroquine [Plaquenil] 1 tab PO BID 11/07/18 Losartan/Hydrochlorothiazide [Losartan-Hctz 100-25 mg Tab] 1 tab PO DAILY 11/07/18 Meloxicam 7.5 mg PO BID 11/07/18 Methotrexate 8 tab PO QWEEK 11/07/18 Omeprazole 40 mg PO DAILY 11/07/18 Amiodarone HCl [Cordarone] 200 mg PO TID #90 tablet 11/14/18 Carvedilol [Coreg (Beta Tressa)] 37.5 mg PO BID #90 tablet 11/14/18 Magnesium Oxide [Mag-Ox 400] 400 mg PO DAILYCM #30 tablet 11/14/18 Rivaroxaban [Xarelto] 20 mg PO DINNER #30 tablet 11/14/18 The following prescriptions were given: Magnesium Oxide [Mag-Ox 400] 400 mg PO DAILYCM #30 tablet Rivaroxaban [Xarelto] 20 mg PO DINNER #30 tablet Carvedilol [Coreg (Beta Tressa)] 37.5 mg PO BID #90 tablet Amiodarone HCl [Cordarone] 200 mg PO TID #90 tablet Primary Care Physician: [facility] Doctor,Out of [Primary Care Provider] - Please follow up with your Primary Care Physician in: 5-7 days Test Results: Test results from this visit will be discussed in further detail at your follow-up appointment, if applicable. Please Follow Up With: Felipe Harley MD When: call the office for the appt Please Follow Up With: Jet Sabillon MD When: the office will call you with an appt Proposed Discharge Date: 11/14/18
[2018-11-14] MEDS: Magnesium Sulfate 4gm/100mL 4 GM/100 ML IV.SOLN. IV (12:41)
--- NOTE | 2018-11-14 12:45 | DCINST_ITS ---
- Discharge Diagnoses Current Active Problems: Current Active and Chronic Problems (Last Reviewed 11/08/18 @ 14:38 by Felipe Harley MD) Small bowel obstruction (Acute) - S/P ex lap with GRACY Atrial fibrillation with RVR (Acute) HTN (hypertension) (Chronic) Hypokalemia Hypomagnesemia You will use the following diet at home:: Cardiac Your food should be the consistency of: Regular Your liquids should be the consistency of: Regular/Thin Discharge Activity: Return to Normal Activity - gradually Call your doctor if your incision/area has: Continuous Slow Oozing, Sudden Increased Bleeding, Increased Pain/ Swelling, Increased Redness, Foul Smelling Discharge Call your doctor if you observe: Fever of 101 or Higher, Inability to have a bowel movement, Shortness of breath, Dizziness, Fainting spells, Swelling in the ankles, Chest pain, Uncontrolled pain Allergies/Adverse Reactions: Allergies No Known Allergies Allergy (Verified 11/08/18 04:34) Medications to take at Discharge Folic Acid 1 mg PO DAILY 11/07/18 Hydroxychloroquine [Plaquenil] 1 tab PO BID 11/07/18 Losartan/Hydrochlorothiazide [Losartan-Hctz 100-25 mg Tab] 1 tab PO DAILY 11/07/18 Meloxicam 7.5 mg PO BID 11/07/18 Methotrexate 8 tab PO QWEEK 11/07/18 Omeprazole 40 mg PO DAILY 11/07/18 Amiodarone HCl [Cordarone] 200 mg PO TID #90 tablet 11/14/18 Carvedilol [Coreg (Beta Tresas)] 37.5 mg PO BID #90 tablet 11/14/18 Magnesium Oxide [Mag-Ox 400] 400 mg PO DAILYCM #30 tablet 11/14/18 Rivaroxaban [Xarelto] 20 mg PO DINNER #30 tablet 11/14/18 The following prescriptions were given: Magnesium Oxide [Mag-Ox 400] 400 mg PO DAILYCM #30 tablet Rivaroxaban [Xarelto] 20 mg PO DINNER #30 tablet Carvedilol [Coreg (Beta Tressa)] 37.5 mg PO BID #90 tablet Amiodarone HCl [Cordarone] 200 mg PO TID #90 tablet Primary Care Physician: [facility] Doctor,Out of [Primary Care Provider] - Please follow up with your Primary Care Physician in: 5-7 days Test Results: Test results from this visit will be discussed in further detail at your follow- up appointment, if applicable. Please Follow Up With: Felipe Harley MD When: call the office for the appt Please Follow Up With: Jet Sabillon MD When: the office will call you with an appt Proposed Discharge Date: 11/14/18
--- NOTE | 2018-11-14 12:45 | PCM.DC.SUM ---
Discharge Date and Diagnosis - Problem List Patient Problems: Active and Suspected Problems (Last Reviewed 11/08/18 @ 14:38 by Felipe Harley MD) Small bowel obstruction (Acute) Atrial fibrillation (Acute) Date of Admission: 11/08/18 Date of Discharge: 11/14/18 - Primary Discharge Diagnosis Active and Suspected Problems (Last Reviewed 11/08/18 @ 14:38 by Felipe Harley MD) Small bowel obstruction (Acute) -status post exploratory laparotomy with lysis of adhesions New onset atrial fibrillation with rapid ventricular response (Acute) Hypokalemia Hypomagnesemia Hypotension-resolved with discontinuation of Cardizem - Secondary Discharge Diagnosis Chronic Problems (Last Reviewed 11/08/18 @ 14:38 by Felipe Harley MD) HTN (hypertension) (Chronic) Morbid obesity Rheumatoid arthritis Hypertension Hospital Course and Treatment Imaging Results: Clinical Impression(s) from Imaging Studies Abdomen/Pelvis CT 11/08/18 00:30 IMPRESSION: 1. Abnormally dilated small bowel with distal transition zone from dilated to nondilated small bowel in keeping with partial small bowel obstruction. More focally dilated small bowel loop at the transition level. Details above. 2. Chronic findings include bilateral renal cysts and atherosclerotic calcifications.. Additional findings as above. Individualized dose optimization techniques were used for this CT. at 0216 Reported and signed by: Blair Carey MD N.B. : The above information has been verbally conveyed by Blair Carey to Joce Rodriguez MD, on 11/08/2018 23:42:20 (ET). Electronically Signed: Blair Carey, at 2:15 EST Tel , Service support , Abdomen X-Ray 11/08/18 12:40 IMPRESSION: Partial small bowel obstruction. Concordant with CT imaging features. On the CT scan the patient has a discrete focus of transition from dilated proximal to mid ileum into nondilated mid to distal ileum. This CT appearance favors adhesive disease. Electronically Signed: Enrrique Oropeza MD at 15:21 EST Tel , Service support , Chest CTA 11/11/18 15:15 IMPRESSION: 1. No central or obvious segmental pulmonary embolism. Exam quality diminished due to respiratory motion. 2. Small bilateral pleural effusions with lower lobe atelectasis. 3. Atherosclerosis including coronary arteries. Electronically Signed: Garrett Portillo MD at 17:01 EST , Service support , Laboratory Results - last 24 hr 11/13/18 11/14/18 11/14/18 12:45 06:40 06:40 APTT > 250.0 H* Sodium 139 Potassium 4.1 Chloride 104 Carbon Dioxide 27.0 Anion Gap 8 BUN 13 Creatinine 1.02 Estim Creat Clear Calc 69.40 Est GFR (MDRD) Af Amer 91 Est GFR (MDRD) Non-Af 75 BUN/Creatinine Ratio 12.7 Glucose 118 H Calcium 7.8 L Phosphorus 3.[address] Felipe Harley-general surgery Dr. Jte Sabillon[facility] Operations: - - Exploratory laparotomy with lysis of adhesions by Dr. Harley Procedures: Transthoracic echo - Technically difficult to test secondary to body habitus. Spleen normal left ventricular size, wall motion and systolic function. The estimated ejection fraction was 55%. Summary of Care Provided: Mr. Huerta is a 78-year-old male with a past medical history of hypertension, morbid obesity and rheumatoid arthritis who was admitted to the hospital with a diagnosis of small bowel obstruction and taken to surgery 11/08/2018 for exploratory laparoscopy and lysis of adhesions. Postoperatively he developed atrial fibrillation with rapid ventricular response. He was seen in consultation by Dr. Sabillon and started on an amiodarone infusion and a heparin infusion. Coreg 25 mg p.o. twice daily was continued. The heart rate remained uncontrolled and he was started on a diltiazem infusion however he became hypotensive and this was discontinued. Heart rate was still uncontrolled and he was given 1 dose of digoxin 0.5 mg and Coreg was increased to 37.5 mg twice daily. Magnesium and potassium were supplemented to keep the potassium at 4 or greater and the magnesium at 2 or greater. Echocardiogram was technically difficult due to his body habitus but showed grossly normal left ventricular function with a 55% ejection fraction. On 11/14/2018 he remained in atrial fibrillation but the heart rate was controlled. Potassium was 4.1 and the magnesium was low at 1.5 and he was given additional intravenous magnesium. He was sent home on an oral supplement. He was transitioned from the heparin infusion to Xarelto 20 mg daily. On the date of discharge he was seen by physical therapy and deemed safe to go home rather than a [facility] facility. They recommended either home health physical therapy or outpatient physical therapy and the patient has opted for outpatient physical therapy. He was discharged on 11/14/2018 will follow up with Dr. Harley. Dr. Sabillon's office will call him with an appointment to follow-up for atrial fibrillation. In approximately 3-4 weeks if he remains in atrial fibrillation then he will likely be admitted to the hospital for cardioversion. GENERAL: alert, oriented X 3, Cooperative, NAD, sitting in a chair with his legs dependent ORAL: moist mucosa, no mucosal lesions NECK: No JVD, supple, trachea midline LUNGS: CTA, symmetric chest expansion, diminished breath sounds throughout, especially in the bases HEART: Irregular rhythm, Normal S1 and S2, no gallop or murmur appreciated, HR adequately controlled ABDOMEN: soft, NT, ND, BS present, no guarding with palpation, obese EXTREMITIES: + edema, no cyanosis, no calf tenderness SKIN: No rashes, no breakdown NEUROLOGIC: no focal neurologic deficits PSYCH: appropriate, normal affect, pleasant Telemetry: AF with controlled VR and no significant ventricular ectopy This note was generated with [employer] dictation software. It may contain incorrect words, spelling, and punctuation that were not noted in checking the note before signing. Patient Problems: Active and Suspected Problems (Last Reviewed 11/08/18 @ 14:38 by Felipe Harley MD) Small bowel obstruction (Acute) Atrial fibrillation (Acute) - Physical Exam Vital Signs Temp Pulse Resp BP Pulse Ox 98.6 F 88 18 102/73 96 11/14/18 08:40 11/14/18 11:10 11/14/18 08:54 11/14/18 08:40 11/14/18 08:40 Oxygen Flow Rate (L/min) 2 Oxygen Delivery Method Room Air Weight: 291 lb 14.272 oz Body Mass Index (BMI) 37.4 Intake and Output for Last 24 Hours 11/12/18 11/13/1819 23:59 23:59 23:59 Intake Total 2291.2 / 2291.2 1340 / 1340 480 / 480 Output Total 1600 / 1600 1075 / 1075 550 / 550 Balance 691.2 / 691.2 265 / 265 -70 / -70 Laboratory Tests Past 24 Hrs 11/13/18 11/14/18 11/14/18 12:45 06:40 06:40 APTT > 250.0 H* Sodium 139 Potassium 4.1 Chloride 104 Carbon Dioxide 27.0 Anion Gap 8 BUN 13 Creatinine 1.02 Estim Creat Clear Calc 69.40 Est GFR (MDRD) Af Amer 91 Est GFR (MDRD) Non-Af 75 BUN/Creatinine Ratio 12.7 Glucose 118 H Calcium 7.8 L Phosphorus 3.4 Magnesium 1.5 L Discharge Activity: Return to Normal Activity - gradually Call your doctor if your incision/area has: Continuous Slow Oozing, Sudden Increased Bleeding, Increased Pain/ Swelling, Increased Redness, Foul Smelling Discharge Call your doctor if you observe: Fever of 101 or Higher, Inability to have a bowel movement, Shortness of breath, Dizziness, Fainting spells, Swelling in the ankles, Chest pain, Uncontrolled pain Home Medications: Medications to take at Discharge Folic Acid 1 mg PO DAILY 11/07/18 Hydroxychloroquine [Plaquenil] 1 tab PO BID 11/07/18 Losartan/Hydrochlorothiazide [Losartan-Hctz 100-25 mg Tab] 1 tab PO DAILY 11/07/18 Meloxicam 7.5 mg PO BID 11/07/18 Methotrexate 8 tab PO QWEEK 11/07/18 Omeprazole 40 mg PO DAILY 11/07/18 Amiodarone HCl [Cordarone] 200 mg PO TID #90 tablet 11/14/18 Carvedilol [Coreg (Beta Tressa)] 37.5 mg PO BID #90 tablet 11/14/18 Magnesium Oxide [Mag-Ox 400] 400 mg PO DAILYCM #30 tablet 11/14/18 Rivaroxaban [Xarelto] 20 mg PO DINNER #30 tablet 11/14/18 Following Prescrptions Were Given to Patient: Magnesium Oxide [Mag-Ox 400] 400 mg PO DAILYCM #30 tablet Rivaroxaban [Xarelto] 20 mg PO DINNER #30 tablet Carvedilol [Coreg (Beta Tressa)] 37.5 mg PO BID #90 tablet Amiodarone HCl [Cordarone] 200 mg PO TID #90 tablet Primary Care Physician: Cely Kang,Out of [Primary Care Provider] - Please follow up with your Primary Care Physician in: 5-7 days Please Follow Up With: Felipe Harley MD When: call the office for the appt Please Follow Up With: Jet Sabillon MD When: the office will call you with an appt Disposition: Home - with OP PT Minutes spent on discharge:: 35 Patient Condition:: Stable Medical Necessity - Tobacco Use Smoking Status: Never smoker Meaningful Use Info Meaningful Use Diagnoses (Choose all that apply): None applicable Code Visit Inpatient E&M: 01159 Disch Hosp
--- NOTE | 2018-11-14 12:57 | DS.PCM_ITS ---
Discharge Date and Diagnosis - Problem List Patient Problems: Active and Suspected Problems (Last Reviewed 11/08/18 @ 14:38 by Felipe Harley MD) Small bowel obstruction (Acute) Atrial fibrillation (Acute) Date of Admission: 11/08/18 Date of Discharge: 11/14/18 - Primary Discharge Diagnosis Active and Suspected Problems (Last Reviewed 11/08/18 @ 14:38 by Felipe Harley MD) Small bowel obstruction (Acute) -status post exploratory laparotomy with lysis of adhesions New onset atrial fibrillation with rapid ventricular response (Acute) Hypokalemia Hypomagnesemia Hypotension-resolved with discontinuation of Cardizem - Secondary Discharge Diagnosis Chronic Problems (Last Reviewed 11/08/18 @ 14:38 by Felipe Harley MD) HTN (hypertension) (Chronic) Morbid obesity Rheumatoid arthritis Hypertension Hospital Course and Treatment Imaging Results: Clinical Impression(s) from Imaging Studies Abdomen/Pelvis CT 11/08/18 00:30 IMPRESSION: 1. Abnormally dilated small bowel with distal transition zone from dilated to nondilated small bowel in keeping with partial small bowel obstruction. More focally dilated small bowel loop at the transition level. Details above. 2. Chronic findings include bilateral renal cysts and atherosclerotic calcifications.. Additional findings as above. Individualized dose optimization techniques were used for this CT. at 0216 Reported and signed by: Blair Carey MD N.B. : The above information has been verbally conveyed by Blair Carey to Joce Rodriguez MD, on 11/08/2018 23:42:20 (ET). Electronically Signed: Blair Carey, at 2:15 EST Tel , Service support , Abdomen X-Ray 11/08/18 12:40 IMPRESSION: Partial small bowel obstruction. Concordant with CT imaging features. On the CT scan the patient has a discrete focus of transition from dilated proximal to mid ileum into nondilated mid to distal ileum. This CT appearance favors adhesive disease. Electronically Signed: Enrrique Oropeza MD at 15:21 EST Tel , Service support , Chest CTA 11/11/18 15:15 IMPRESSION: 1. No central or obvious segmental pulmonary embolism. Exam quality diminished due to respiratory motion. 2. Small bilateral pleural effusions with lower lobe atelectasis. 3. Atherosclerosis including coronary arteries. Electronically Signed: Garrett Portillo MD at 17:01 EST , Service support , Laboratory Results - last 24 hr 11/13/18 11/14/18 11/14/18 12:45 06:40 06:40 APTT > 250.0 H* Sodium 139 Potassium 4.1 Chloride 104 Carbon Dioxide 27.0 Anion Gap 8 BUN 13 Creatinine 1.02 Estim Creat Clear Calc 69.40 Est GFR (MDRD) Af Amer 91 Est GFR (MDRD) Non-Af 75 BUN/Creatinine Ratio 12.7 Glucose 118 H Calcium 7.8 L Phosphorus 3.[address] Felipe Harley-general surgery Dr. Jet Sabillon-[facility] Operations: - - Exploratory laparotomy with lysis of adhesions by Dr. Harley Procedures: Transthoracic echo - Technically difficult to test secondary to body habitus. Spleen normal left ventricular size, wall motion and systolic function. The estimated ejection fraction was 55%. Summary of Care Provided: Mr. Huerta is a 78-year-old male with a past medical history of hypertension, morbid obesity and rheumatoid arthritis who was admitted to the hospital with a diagnosis of small bowel obstruction and taken to surgery 11/08/2018 for exploratory laparoscopy and lysis of adhesions. Postoperatively he developed atrial fibrillation with rapid ventricular response. He was seen in consultation by Dr. Sabillon and started on an amiodarone infusion and a heparin infusion. Coreg 25 mg p.o. twice daily was continued. The heart rate remained uncontrolled and he was started on a diltiazem infusion however he became hypotensive and this was discontinued. Heart rate was still uncontrolled and he was given 1 dose of digoxin 0.5 mg and Coreg was increased to 37.5 mg twice daily. Magnesium and potassium were supplemented to keep the potassium at 4 or greater and the magnesium at 2 or greater. Echocardiogram was technically difficult due to his body habitus but showed grossly normal left ventricular function with a 55% ejection fraction. On 11/14/2018 he remained in atrial fibrillation but the heart rate was controlled. Potassium was 4.1 and the magnesium was low at 1.5 and he was given additional intravenous magnesium. He was sent home on an oral supplement. He was transitioned from the heparin infusion to Xarelto 20 mg daily. On the date of discharge he was seen by physical therapy and deemed safe to go home rather than a jail facility. They recommended either home health physical therapy or outpatient physical therapy and the patient has opted for outpatient physical therapy. He was discharged on 11/14/2018 will follow up with Dr. Harley. Dr. Sabillon's office will call him with an appointment to follow-up for atrial fibrillation. In approximately 3-4 weeks if he remains in atrial fibrillation then he will likely be admitted to the hospital for cardioversion. GENERAL: alert, oriented X 3, Cooperative, NAD, sitting in a chair with his legs dependent ORAL: moist mucosa, no mucosal lesions NECK: No JVD, supple, trachea midline LUNGS: CTA, symmetric chest expansion, diminished breath sounds throughout, especially in the bases HEART: Irregular rhythm, Normal S1 and S2, no gallop or murmur appreciated, HR adequately controlled ABDOMEN: soft, NT, ND, BS present, no guarding with palpation, obese EXTREMITIES: + edema, no cyanosis, no calf tenderness SKIN: No rashes, no breakdown NEUROLOGIC: no focal neurologic deficits PSYCH: appropriate, normal affect, pleasant Telemetry: AF with controlled VR and no significant ventricular ectopy This note was generated with [employer] dictation software. It may contain incorrect words, spelling, and punctuation that were not noted in checking the note before signing. Patient Problems: Active and Suspected Problems (Last Reviewed 11/08/18 @ 14:38 by Felipe Harley MD) Small bowel obstruction (Acute) Atrial fibrillation (Acute) - Physical Exam Vital Signs Temp Pulse Resp BP Pulse Ox 98.6 F 88 18 102/73 96 11/14/18 08:40 11/14/18 11:10 11/14/18 08:54 11/14/18 08:40 11/14/18 08:40 Oxygen Flow Rate (L/min) 2 Oxygen Delivery Method Room Air Weight: 291 lb 14.272 oz Body Mass Index (BMI) 37.4 Intake and Output for Last 24 Hours 11/12/18 11/13/1819 23:59 23:59 23:59 Intake Total 2291.2 / 2291.2 1340 / 1340 480 / 480 Output Total 1600 / 1600 1075 / 1075 550 / 550 Balance 691.2 / 691.2 265 / 265 -70 / -70 Laboratory Tests Past 24 Hrs 11/13/18 11/14/18 11/14/18 12:45 06:40 06:40 APTT > 250.0 H* Sodium 139 Potassium 4.1 Chloride 104 Carbon Dioxide 27.0 Anion Gap 8 BUN 13 Creatinine 1.02 Estim Creat Clear Calc 69.40 Est GFR (MDRD) Af Amer 91 Est GFR (MDRD) Non-Af 75 BUN/Creatinine Ratio 12.7 Glucose 118 H Calcium 7.8 L Phosphorus 3.4 Magnesium 1.5 L Discharge Activity: Return to Normal Activity - gradually Call your doctor if your incision/area has: Continuous Slow Oozing, Sudden Increased Bleeding, Increased Pain/ Swelling, Increased Redness, Foul Smelling Discharge Call your doctor if you observe: Fever of 101 or Higher, Inability to have a bowel movement, Shortness of breath, Dizziness, Fainting spells, Swelling in the ankles, Chest pain, Uncontrolled pain Home Medications: Medications to take at Discharge Folic Acid 1 mg PO DAILY 11/07/18 Hydroxychloroquine [Plaquenil] 1 tab PO BID 11/07/18 Losartan/Hydrochlorothiazide [Losartan-Hctz 100-25 mg Tab] 1 tab PO DAILY 11/07/18 Meloxicam 7.5 mg PO BID 11/07/18 Methotrexate 8 tab PO QWEEK 11/07/18 Omeprazole 40 mg PO DAILY 11/07/18 Amiodarone HCl [Cordarone] 200 mg PO TID #90 tablet 11/14/18 Carvedilol [Coreg (Beta Tressa)] 37.5 mg PO BID #90 tablet 11/14/18 Magnesium Oxide [Mag-Ox 400] 400 mg PO DAILYCM #30 tablet 11/14/18 Rivaroxaban [Xarelto] 20 mg PO DINNER #30 tablet 11/14/18 Following Prescrptions Were Given to Patient: Magnesium Oxide [Mag-Ox 400] 400 mg PO DAILYCM #30 tablet Rivaroxaban [Xarelto] 20 mg PO DINNER #30 tablet Carvedilol [Coreg (Beta Tressa)] 37.5 mg PO BID #90 tablet Amiodarone HCl [Cordarone] 200 mg PO TID #90 tablet Primary Care Physician: Cely Kang,Out of [Primary Care Provider] - Please follow up with your Primary Care Physician in: 5-7 days Please Follow Up With: Felipe Harley MD When: call the office for the appt Please Follow Up With: Jet Sabillon MD When: the office will call you with an appt Disposition: Home - with OP PT Minutes spent on discharge:: 35 Patient Condition:: Stable Medical Necessity - Tobacco Use Smoking Status: Never smoker Meaningful Use Info Meaningful Use Diagnoses (Choose all that apply): None applicable Code Visit Inpatient E&M: 56698 Disch Hosp
[2018-11-14] MEDS: Rivaroxaban 20 MG Tablet PO (16:59)
== END 2018-11-14 17:43 | disposition home or self-care (01) | DRG 336 ==
LOC: ED 23:57 → MS2 11-08 04:38 → PCU 11-11 00:04
PROVIDERS: Internal Medicine Cardiovascular Disease; Surgery; Admitting Provider Hospitalist; Emergency Provider Emergency Medicine; Visit Provider Internal Medicine
PROC: 0DJD4ZZ Inspection of Lower Intestinal Tract, Percutaneous Endoscopic Approach (ICD-10-PCS; CPT 49320; principal; 2018-11-08 07:15)
DX: K56.51 Intestinal adhesions [bands], with partial obstruction (principal); I97.191 Other postprocedural cardiac functional disturbances following other surgery; E66.01 Morbid (severe) obesity due to excess calories; Z68.37 Body mass index [BMI] 37.0-37.9, adult; M06.9 Rheumatoid arthritis, unspecified; E87.6 Hypokalemia; E83.42 Hypomagnesemia; I95.9 Hypotension, unspecified; I48.91 Unspecified atrial fibrillation; Y83.8 Other surgical procedures as the cause of abnormal reaction of the patient, or of later complication, without mention of misadventure at the time of the procedure; I16.0 Hypertensive urgency; Z90.49 Acquired absence of other specified parts of digestive tract; K21.9 Gastro-esophageal reflux disease without esophagitis; Z79.899 Other long term (current) drug therapy; Z53.31 Laparoscopic surgical procedure converted to open procedure
CPT/HCPCS: 36415; 71275; 74019; 74177; 80048; 80053; 81001; 83690; 83735; 84100; 84443; 85025; 85379; 85610; 85730; 93005; 93306; 97110; 97116; 97162; 97165; 97530; 97535; 97802; 99282; J7030; J7050; J7120; Q9957; Q9967; A4216; C8929; J2405

== ENCOUNTER 2018-12-09 11:57 | Inpatient (IN) | payer MEDICARE, BC, SELFPAY ==
[2018-11-26 11:12] VITALS: BMI 37.4
[2018-12-09 11:59] VITALS: BP 127/71; BP 128/65; PULSE 65; PULSE 66; RESP 13; RESP 16; TEMP 36.6; O2SAT 95; O2SAT 96; BMI 38.7
--- NOTE | 2018-12-09 11:59 | CT_ITS ---
STUDY: CT BRAIN WITHOUT CONTRAST REASON FOR EXAM: Male, 78 years old. Pain after fall RADIATION DOSAGE (If Supplied By Facility): CTDIvol = ( 44.99 ) mGy, DLP = ( 829.85 ) mGycm TECHNIQUE: Transaxial CT imaging of the brain was performed without administration of intravenous contrast material. Individualized dose optimization techniques were used for this CT. COMPARISON: None. FINDINGS: Ventricles: Normal for patient's age. White matter and Cortex: Normal appearance of the white matter tracts. Normal appearance of the cortex. Basal ganglia and Thalami: Normal in appearance. Brainstem: Normal in appearance. Cerebellum: Normal in appearance. Vascular: No significant abnormalities. No evidence of acute hemorrhage. No evidence of acute ischemia. No evidence of mass effect. Soft tissues: Unremarkable. Bones: Unremarkable. Sinuses: Complete opacification of the maxillary sinuses, frontal sinuses, ethmoid air cells and left sphenoid sinus. Near complete opacification of the right sphenoid sinus. CT/Brain/Head without Contrast IMPRESSION: No acute intracranial abnormalities. There is marked pansinusitis. Electronically Signed: Denise Montoya MD at 14:12 EST , Service support ,
--- NOTE | 2018-12-09 11:59 | EKG12_ITS ---
Test Reason : FALL Blood Pressure : / mmHG Vent. Rate : 064 BPM Atrial Rate : 064 BPM P-R Int : 168 ms QRS Dur : 098 ms QT Int : 442 ms P-R-T Axes : 003 -20 065 degrees QTc Int : 455 ms Sinus rhythm with occasional Premature ventricular complexes Otherwise normal ECG Confirmed by BLADIMIR SHIPMAN, NIKA ([id number]), film editor supervisor DANIEL HENDRIX ([id number]) on 12/11/2018 2:19:05 PM Referred By: Luis Santacruz Confirmed By:NIKA GARRISON MD
--- NOTE | 2018-12-09 12:00 | RAD_ITS ---
STUDY: X-RAY - LEFT HIP REASON FOR EXAM: Male, 78 years old. Trauma. TECHNIQUE: AP pelvis and 2 views of the hip. COMPARISON: None. FINDINGS: There is total right hip prosthesis. There is probable impacted subcapital nondisplaced fracture of the left hip. Normal acetabulum. Normal hip joint. Normal visualized superior and inferior pubic rami and ischial tuberosities. There are degenerative changes in the lower lumbar spine appear RAD/HIP, UNI W/ Pelvis 2-3 Views IMPRESSION: Probable impacted nondisplaced subcapital fracture of the left hip. Electronically Signed: Reza Dutta MD at 13:21 EST Tel , Service support ,
--- NOTE | 2018-12-09 12:01 | ED.VISSUMM ---
- ER Visit Summary Date of Service: 12/09/18 Chief Complaint: Fall, hip pain History of Present Illness: The patient is a 78 M presents to the emergency department after mechanical fall. Patient was in his normal state of health. He normally ambulates with a cane. He states he was ambulating today and his cane gave out. He fell backwards. He landed on his left hip. He denies striking his head. He states that he was unable to stand and ambulate because of the pain. He called to his chair. Squad was called. On squad arrival, the patient was awake and alert. He was recently admitted about a month ago. He had an incarcerated and strangulate hernia that required exploratory laparotomy. His postop course was complicated by new onset atrial fibrillation. He is on Xarelto. He has had prior right hip replacement. Physical Examination: Vital signs reviewed General: Well-nourished, well-developed Head: Normocephalic, atraumatic Eyes: Pupils equal and reactive, extraocular muscles intact Neck, supple, no lymphadenopathy Heart: Regular rate and rhythm Respiratory: No distress, clear bilaterally Abdomen: Soft, nontender, nondistended, no peritoneal signs Back: Nontender Extremities: Tenderness over the left hip with palpation, normal pulses, no edema, no cords Skin: Normal color no rash Neuro: Alert and oriented, no focal or lateralizing deficits Test Results: [] Emergency Department Course and Treatment: Patient presents with hip pain after mechanical fall. His pulses are intact. His skin is intact. X-rays of the hip do show a femoral neck fracture that is mildly impacted but nondisplaced. Patient was given analgesics with improvement of pain. I did obtain a chest x-ray and head CT. Screening labs were also obtained. The patient was discussed with both orthopedics and the hospitalist. At this time, he will be admitted for medical clearance and operative fixation. Treatment Plan: [] Disposition: Admission Impression: 1. Left femoral neck fracture status post fall This note was generated with [employer] dictation software. It may contain incorrect words, spelling, and punctuation that were not noted in review of the chart prior to signing ED Disposition - Plan for ED Patient: Chief Complaint: Fall Referrals: [facility] Doctor,Out of [Primary Care Provider] -
[2018-12-09 12:17] LABS: Absolute Lymphocyte Count 1.16 X10^3/ul (0.83-4.51); Absolute Neutrophil Count 6.6 X10^3/uL (2.0-7.7); Basophil# 0.02 X10^3/uL; Basophil% 0.2 % (0-1); Eosinophil# 0.15 X10^3/uL; Eosinophils% 1.7 % (0-5); Hematocrit 36.2 % (40-54); Hemoglobin 11.8 g/dl (13.0-16.5); Lymphocyte # 1.16 X10^3/ul (4.0); Lymphocyte % 12.9 % (19-41); Mean Corp Hgb Conc 32.6 g/gl (32-36); Mean Corpuscular Hgb 33.8 pg (27.0-32.0); Mean Corpuscular Volume 103.7 fL (80-94); Mean Platelet Vol. 9.4 fl (6.2-12.0); Monocyte# 1.05 X10^3/uL; Monocyte% 11.7 % (0-10); Neutrophil # 6.59 X10^3/uL (2.7-7.7); Neutrophil % 73.2 % (47-70); Platelet Count 285 K/mm3 (150-450); RBC Distribution Width SD 47.5 fl (35.1-43.9); Red Blood Count 3.49 M/mm3 (4.6-6.2)
[2018-12-09] MEDS: Morphine 4 MG/ML Syringe IV (12:17)
[2018-12-09] MEDS: Ondansetron 4 MG/2 ML Vial IV (12:17)
[2018-12-09 12:19] LABS: POSITIVE COUNT NO; POSITIVE DIFFERENTIAL NO; POSITIVE MORPHOLOGY NO
[2018-12-09 12:31] LABS: Anion Gap 7 (5-15); BUN 19 mg/dL (7-18); BUN/Creat Ratio 16.7 RATIO (10-20); Calcium,Total 8.4 mg/dL (8.5-10.1); Chloride 103 mmol/L (98-107); Creatinine, Serum 1.14 mg/dL (0.70-1.30); EST Glomerular Filtration Rate 66 mL/min (>60); Est Glom Filt Rate - Afr Amer 80 mL/min (>60); Estimated Creatinine Clearance 62.09 ml/min; Glucose 101 mg/dL (74-106); Potassium 4.3 mmol/L (3.5-5.1); Sodium Level 139 mmol/L (136-145)
--- NOTE | 2018-12-09 13:38 | RAD_ITS ---
STUDY: X-RAY CHEST REASON FOR EXAM: Male, 78 years old. Cough. TECHNIQUE: Single AP portable view of the chest. COMPARISON: CTA of the chest, November 11, 2018. FINDINGS: The lungs are clear and expanded. There is blunting left costophrenic angle with linear densities at the left lung base suggesting pleural effusion and atelectasis. Normal size heart. Normal mediastinum and spring. Normal visualized pulmonary arteries. Normal visualized aortic arch and descending thoracic aorta. The thoracic spine is obscured by the mediastinum. There is degenerative osteoarthritis of the bilateral shoulders. There is no demonstrated abnormality of the visualized soft tissue structures of the upper abdomen. RAD/Chest 1 View (Portable) IMPRESSION: Question small left pleural effusion and atelectasis/infiltrate Electronically Signed: Fercho Recio DO at 14:31 EST Tel [phone], Service support ,
[2018-12-09] MEDS: HYDROmorphone 0.5 MG/0.5 ML SYRINGE IV (13:59)
[2018-12-09 14:57] VITALS: BP 140/72; PULSE 58; RESP 15; O2SAT 94
--- NOTE | 2018-12-09 15:34 | NURSING ---
317 LT HIP FX CARLITO
--- NOTE | 2018-12-09 15:44 | HP.PCM_ITS ---
<Fidel Schrader - Last Filed: 12/09/18 15:38> Problem List (1) Hip fracture, left Status: Acute (2) Paroxysmal A-fib Status: Chronic (3) Obesity Status: Chronic (4) HTN (hypertension) Status: Chronic History of Present Illness Date of Admission: 12/09/18 Chief Complaint: fall The patient is a 78 year old M with pmhx of recent admission for small bowel obstruction and new onset afib with RVR, also with a hx of HTN, obesity, RA, who presents to the hospital today after falling at home. He was ambulating with his cane and hit a wet spot on his floor. The cane slipped out and he fell to the ground backwards landing on his left hip. No preceding dizziness/LH. He developed 10/10 pain and was brought to the ER by EMS. He was found to have a impacted nondisplaced subcapital fracture of the left hip. He has no pain at rest, but with any movement 10/10 pain. He has no numbness or tingling in the affected limb. He states he had been doing well since last admission with oupatient physical therapy. He also had followed up with Dr. Sabillon with regards to his Afib and was found to be in normal SR with good rate control. He remains on xarelto. He had underwent exploratory lap with adhesion lysis on last admission and has been doing well. Last BM was last night. He has not had a chance to follow up with Dr. Harley for this. [] Past Medical History Past Medical History (Chronic Problems): Chronic Problems (Last Reviewed 11/08/18 @ 14:38 by Felipe Harley MD) Paroxysmal A-fib (Chronic) Obesity (Chronic) HTN (hypertension) (Chronic) Medical History: Medical History (Last Reviewed 11/08/18 @ 14:38 by Felipe Harley MD) Rheumatoid arthritis M06.9 HTN (hypertension) I10 Allergies Penicillins Allergy (Severe, Verified 12/09/18 11:58) rash Home Medications: Ambulatory Orders Medication Instructions Recorded Folic Acid 1 mg PO DAILY 11/07/18 Hydroxychloroquine [Plaquenil] 1 tab PO BID 11/07/18 Losartan/Hydrochlorothiazide 1 tab PO DAILY 11/07/18 [Losartan-Hctz 100-25 mg Tab] Meloxicam 7.5 mg PO BID 11/07/18 Methotrexate 8 tab PO QWEEK 11/07/18 Omeprazole 40 mg PO DAILY 11/07/18 Magnesium Oxide [Mag-Ox 400] 400 mg PO DAILYCM #30 tab 11/14/18 amiodarone 200 mg tablet 200 mg PO DAILY #90 tab 11/26/18 carvedilol 25 mg tablet 25 mg PO BID #180 tab 11/26/18 rivaroxaban 20 mg tablet 20 mg PO DINNER #90 tab 11/26/18 tramadol 50 mg tablet 50 mg PO Q6H PRN 11/26/18 Surgical History: Surgical History (Last Updated 11/26/18 @ 11:13 by Silvana Millan) History of bowel resection Onset Date: 11/08/18 Z98.890, Z90.49 History of carpal tunnel release of both wrists Z98.890 History of cholecystectomy Z90.49 History of right hip replacement Z96.641 partial History of rotator cuff surgery Z98.890 left Status post trigger finger release Z98.890 right hand Status post wrist surgery Z98.890 left Surgical History: cholecystectomy, - - Left hip replacement; facial surgery for cancer; plate placed in left forearm; and left rotator cuff surgery; Psychiatric History: No pertinent psych hx Lives: Spouse/ Significant Other Smoking Status: Never smoker Tobacco Use: Non-smoker Alcohol: None Drugs: None - *Family History Maternal Family History: Family History (Last Reviewed 11/26/18 @ 11:13 by Silvana Millan) Mother Pancreatic cancer Father Heart problem Sister Breast cancer History Items: Cancer - pancreatic Review of Systems Constitutional: Denies: Chills, Fever, Weight Change HEENT: Denies: Head Aches, Sinus Congestion, Sinus Drainage Cardiovascular: Denies: Chest Pain, Palpitations Respiratory: Denies: Cough, Shortness of breath at rest, Sputum production Gastrointestinal: Denies: Abdominal Pain, Nausea, Vomiting Genitourinary: Denies: Dysuria Musculoskeletal: Reports: Joint Pain. Denies: Joint Tenderness Skin: Denies: Rash, Wounds Neurological: Denies: Numbness, Tingling, Focal weakness Psychiatric: Denies: Anxiety, Depression, Homicidal Ideations, Suicidal Ideations Hematologic/ Lymphatic: Denies: Easy Bruising, Easy Bleeding VTE Information - Inpt Only VTE Present on Admission: No VTE Mechan Device Prophylaxis: None VTE Pharm Prophylaxis ordered?: Yes Patient Problems: Active and Suspected Problems (Last Reviewed 11/08/18 @ 14:38 by Felipe Harley MD) Hip fracture, left (Acute) - Physical Exam General: Alert, Oriented x3, Cooperative HEENT: Atraumatic, PERRLA, EOMI, Normocephalic Neck: Supple, No JVD, Negative Carotid Bruits Lungs: Clear to auscultation, Normal air movement Cardiovascular: Regular rate, No murmurs Abdomen: Bowel Sounds Present, Soft, Non Tender Extremities: No edema, Capillary Refill Less than 3 Seconds Skin: No rashes, No breakdown Musculoskeletal: No Tenderness to Palpation of Joints or Extremities Neurological: Cranial nerves II-XII grossly intact Psych/Mental Status: Normal Affect, Appropriate, Alert and oriented to time, place, person, mood and affect Vital Signs Temp Pulse Resp BP Pulse Ox 97.8 F 58 L 15 140/72 H 94 12/09/18 11:59 12/09/18 14:57 12/09/18 14:57 12/09/18 14:57 12/09/18 14:57 Oxygen Delivery Method Room Air Weight: 302 lb 0.533 oz Body Mass Index (BMI) 38.7 Laboratory Tests Past 24 Hrs 12/09/18 12/09/18 12/09/18 12:05 12:05 14:14 WBC 9.0 RBC 3.49 L Hgb 11.8 L Hct 36.2 L MCV 103.7 H MCH 33.8 H MCHC 32.6 RDW 13.0 RDW Differential 47.5 H Plt Count 285 MPV 9.4 Immature Gran % (Auto) 0.300 Neut % (Auto) 73.2 H Lymph % (Auto) 12.9 L [place] % (Auto) 11.7 H Eos % (Auto) 1.7 Baso % (Auto) 0.2 Absolute Neuts (auto) 6.6 Absolute Lymphs (auto) 1.16 Total Counted Not Reportable Sodium 139 Potassium 4.3 Chloride 103 Carbon Dioxide 29.0 Anion Gap 7 BUN 19 H Creatinine 1.14 Estim Creat Clear Calc 62.09 Est GFR (MDRD) Af Amer 80 Est GFR (MDRD) Non-Af 66 BUN/Creatinine Ratio 16.7 Glucose 101 Calcium 8.4 L Blood Type A NEGATIVE Antibody Screen NEGATIVE Assessment/Plan All Active Problems (Last Reviewed 11/08/18 @ 14:38 by Felipe Harley MD) Hip fracture, left (Acute) Small bowel obstruction (Acute) Atrial fibrillation (Acute) 1. Acute x-ray of the left hip-secondary to mechanical fall-consult orthopedic surgery. CT brain negative. Fracture appreciable on x-ray. CXR with small left pleural effusion, atelectasis/infiltrate however patient without respiratory issues at this time. 2. Paroxysmal Afib with recent RVR - now in NSR. Amiodarone, Coreg, Xarelto. 3. Hypertension -stable 4. History of rheumatoid arthritis-on Plaquenil, methotrexate. 5. Obesity - dietary eval. 6. Recent small bowel obstruction-suture appears to be healing well, bowels are working normally. He will need to follow-up as an outpatient with Dr. Harley. DVT prophylaxis: Hold Xarelto, heparin drip DC planning: PTOT, was doing outpatient physical therapy after last admission, he may require higher level of care at discharge this time. This patient was seen by Fidel Schrader PA-C under the supervision of Doctor Noam. <Luis Santacruz E - Last Filed: 12/09/18 16:06> History of Present Illness The patient is a 78 year old M [] Past Medical History Medical History: Medical History (Last Reviewed 11/08/18 @ 14:38 by Felipe Harley MD) Rheumatoid arthritis M06.9 HTN (hypertension) I10 Allergies Penicillins Allergy (Severe, Verified 12/09/18 11:58) rash Surgical History: Surgical History (Last Updated 11/26/18 @ 11:13 by Silvana Millan) History of bowel resection Onset Date: 11/08/18 Z98.890, Z90.49 History of carpal tunnel release of both wrists Z98.890 History of cholecystectomy Z90.49 History of right hip replacement Z96.641 partial History of rotator cuff surgery Z98.890 left Status post trigger finger release Z98.890 right hand Status post wrist surgery Z98.890 left - *Family History Maternal Family History: Family History (Last Reviewed 11/26/18 @ 11:13 by Silvana Millan) Mother Pancreatic cancer Father Heart problem Sister Breast cancer - Physical Exam Vital Signs Temp Pulse Resp BP Pulse Ox 97.8 F 58 L 15 140/72 H 94 12/09/18 11:59 12/09/18 14:57 12/09/18 14:57 12/09/18 14:57 12/09/18 14:57 Oxygen Delivery Method Room Air Weight: 302 lb 0.533 oz Body Mass Index (BMI) 38.7 Laboratory Tests Past 24 Hrs 12/09/18 12/09/18 12/09/18 12:05 12:05 14:14 WBC 9.0 RBC 3.49 L Hgb 11.8 L Hct 36.2 L MCV 103.7 H MCH 33.8 H MCHC 32.6 RDW 13.0 RDW Differential 47.5 H Plt Count 285 MPV 9.4 Immature Gran % (Auto) 0.300 Neut % (Auto) 73.2 H Lymph % (Auto) 12.9 L [place] % (Auto) 11.7 H Eos % (Auto) 1.7 Baso % (Auto) 0.2 Absolute Neuts (auto) 6.6 Absolute Lymphs (auto) 1.16 Total Counted Not Reportable Sodium 139 Potassium 4.3 Chloride 103 Carbon Dioxide 29.0 Anion Gap 7 BUN 19 H Creatinine 1.14 Estim Creat Clear Calc 62.09 Est GFR (MDRD) Af Amer 80 Est GFR (MDRD) Non-Af 66 BUN/Creatinine Ratio 16.7 Glucose 101 Calcium 8.4 L Blood Type A NEGATIVE Antibody Screen NEGATIVE Assessment/Plan Hospitalist note: I am seeing this patient in conjunction with Fidel Schrader. I independently seen and examined the patient. History and physical, laboratory data and imaging studies reviewed and I concur with the above admission treatment plan. Patient presented to the emergency room after he had a fall and at home. He was using his cane which slipped and he fell to the ground backwards and landed on his left buttock. Denied any prodromal symptoms such as chest pain, shortness of breath, dizziness or lightheadedness. After he fell, he developed left hip pain, 10 out of 10 in severity, sharp pain, not radiating, aggravated by any movement, relieved by rest and without associated symptoms. In the emergency department, his vital signs were stable. His routine blood work was remarkable for chronic anemia, otherwise normal. EKG revealed normal sinus rhythm with occasional PVCs, no acute findings. Chest x-ray showed small left pleural effusion which is chronic. X-ray of the hip and pelvis revealed nondisplaced subcapital fracture of the left hip. CT scan brain showed no acute findings. - Physical Exam General: Alert, Oriented x3, Cooperative, No apparent distress. HEENT: Atraumatic, PERRLA, EOMI. Neck: Supple, No JVD, Negative Carotid Bruits, Trachea Midline, Thyroid Normal. Lungs: Diminished breath sounds bilateral, otherwise clear normal air movement, No rhonchi, No wheeze, No rales. Cardiovascular: Regular rate, Regular Rhythm, Normal S1, Normal S2, PMI Normal. Abdomen: Bowel Sounds Present, Soft, Non Tender, Non-Distended, No Hepato- splenomegaly. Extremities: No clubbing, No cyanosis, No edema Skin: No rashes, No breakdown Neurological: Neuro grossly intact Vital Signs are stable. Assessment and plan: #1 mechanical fall/acute traumatic impacted nondisplaced subcapital fracture of the left hip: X-ray of the hip and pelvis reviewed as above. Vital signs are stable. Routine blood work reviewed as above. Plan: Admit to Medr floor, complete bedrest, insert Winters catheter, IV morphine as needed for pain, OxyIR as needed for pain, IV fluids, orthopedic surgery consult, hold Xarelto, will do pro time and INR as well as PTT, repeat CBC and BMP tomorrow morning. #2 preoperative evaluation: Patient lives at home with his , ambulates at home with use of cane, he is partially dependent. Past history of hypertension, paroxysmal atrial fibrillation and rheumatoid arthritis noted. Chest x-ray revealed small left pleural effusion which is chronic, no acute findings. EKG revealed normal sinus rhythm with occasional PVCs, no acute ischemic changes. Based on his age, serum creatinine, functional status and probable surgery, his estimated risk for perioperative myocardial infarction or cardiac arrest is 0.39%. The patient is at moderate risk for surgery at this time. We will proceed with surgery, no indication for further cardiac workup. #3 recent history of small bowel obstruction status post exploratory laparoscopy and lysis of adhesions. Stable, denies any abdominal pain, denied constipation or diarrhea. #4 other chronic medical problems: Stable, continue current medications. Plan to hold Xarelto for now. This note was generated with [employer] software. It may contain incorrect words, spelling, and punctuation that were not noted in checking the note before signing. Code Visit Inpatient E&M: 64663 Init Hosp L3
[2018-12-09] MEDS: 0.9% Normal Saline 1,000 ML 75 ML IV (16:56)
[2018-12-09 17:09] VITALS: BMI 38.2
[2018-12-09 17:09] LABS: Prothrombin Time (Protime)PT. 22.3 SECONDS (11.7-14.9)
[2018-12-09 17:10] LABS: Partial Thromboplast Time 41.6 Seconds (24.1-36.2)
[2018-12-09 17:13] VITALS: BMI 38.2
[2018-12-09 17:13] LABS: Magnesium 1.5 mg/dL (1.6-2.6)
[2018-12-09] MEDS: oxyCODONE 5 MG Tablet PO (19:02)
[2018-12-09 20:00] VITALS: PULSE 72
[2018-12-09] MEDS: Morphine 2 MG/ML Syringe IV (20:23)
[2018-12-09 20:35] VITALS: BP 141/65; PULSE 73; RESP 18; TEMP 36.7; O2SAT 95
[2018-12-09] MEDS: Carvedilol 25 MG Tablet PO (21:49)
[2018-12-09] MEDS: Docusate Sodium 100 MG Capsule PO (21:49)
[2018-12-09] MEDS: Hydroxychloroquine 200 MG Tablet PO (21:49)
[2018-12-10] VITALS (16 sets, daily range): BP systolic 118–159; BP diastolic 54–93; PULSE 65–82; RESP 16–18; TEMP 36.7–37.5; O2SAT 92–98; BMI 38.2
[2018-12-10] MEDS: oxyCODONE 5 MG Tablet PO (06:10)
[2018-12-10] MEDS: 0.9% Normal Saline 1,000 ML 75 ML IV ×2 (06:11→17:48)
[2018-12-10] MEDS: Nystatin Powder 15gm Bottle 1 APPLIC TOPICAL ×3 (06:13→23:06)
[2018-12-10 06:19] LABS: Absolute Lymphocyte Count 1.42 X10^3/ul (0.83-4.51); Absolute Neutrophil Count 4.3 X10^3/uL (2.0-7.7); Basophil# 0.03 X10^3/uL; Basophil% 0.4 % (0-1); Eosinophil# 0.28 X10^3/uL; Eosinophils% 3.9 % (0-5); Hematocrit 33.4 % (40-54); Hemoglobin 10.9 g/dl (13.0-16.5); Lymphocyte # 1.42 X10^3/ul (4.0); Lymphocyte % 19.8 % (19-41); Mean Corp Hgb Conc 32.6 g/gl (32-36); Mean Corpuscular Hgb 34.3 pg (27.0-32.0); Mean Platelet Vol. 9.2 fl (6.2-12.0); Monocyte# 1.09 X10^3/uL; Monocyte% 15.2 % (0-10); Neutrophil # 4.32 X10^3/uL (2.7-7.7); Neutrophil % 60.3 % (47-70); Platelet Count 237 K/mm3 (150-450); Red Blood Count 3.18 M/mm3 (4.6-6.2); White Blood Count 7.2 K/mm3 (4.4-11.0)
[2018-12-10 06:20] LABS: POSITIVE COUNT NO; POSITIVE DIFFERENTIAL NO; POSITIVE MORPHOLOGY NO
[2018-12-10 06:39] LABS: Anion Gap 8 (5-15); BUN 17 mg/dL (7-18); BUN/Creat Ratio 17.6 RATIO (10-20); Chloride 103 mmol/L (98-107); Creatinine, Serum 0.97 mg/dL (0.70-1.30); EST Glomerular Filtration Rate 80 mL/min (>60); Est Glom Filt Rate - Afr Amer 97 mL/min (>60); Estimated Creatinine Clearance 72.97 ml/min; Glucose 105 mg/dL (74-106); Potassium 4.3 mmol/L (3.5-5.1); Sodium Level 139 mmol/L (136-145)
--- NOTE | 2018-12-10 07:18 | PCM.CONS.GEN ---
Reason for Consult Date of Consultation: 12/10/18 Reason for Consultation: Left hip pain. requested by Dr Santacruz History of Present Illness: The patient is a 78 year old M with history of multiple medical comorbidities. Patient recently had new onset atrial fibrillation and was placed on Xarelto. Last dose was on the evening prior to the fall. Patient notes that yesterday he was walking in his house. He currently ambulates with a cane due to instability after previous right hip fracture and hemiarthroplasty which resulted in a leg length discrepancy. Patient's cane slipped out from underneath him and he fell onto his left side. He immediately had 10 out of 10 pain and was unable to bear weight. He was brought to the emergency department and was found to have a minimally displaced impacted subcapital femoral neck fracture. Patient's pain is worse with motion better with immobilization. Reports 9 out of 10 pain this morning. Dull achy pain in the groin. Does have history of recent hernia repair by Dr. Harley. Patient denies antecedent hip pain. He uses a cane around his home for short trips, he uses a walker for long trips out of the house. Past Medical History Past Medical History (Chronic Problems): Chronic Problems (Last Reviewed 11/08/18 @ 14:38 by Felipe Harley MD) Paroxysmal A-fib (Chronic) Obesity (Chronic) HTN (hypertension) (Chronic) Medical History: Medical History (Last Reviewed 11/08/18 @ 14:38 by Felipe Harley MD) Rheumatoid arthritis M06.9 HTN (hypertension) I10 Allergies Penicillins Allergy (Severe, Verified 12/09/18 11:58) rash Home Medications: Ambulatory Orders Medication Instructions Recorded Folic Acid 1 mg PO DAILY 11/07/18 Hydroxychloroquine [Plaquenil] 1 tab PO BID 11/07/18 Losartan/Hydrochlorothiazide 1 tab PO DAILY 11/07/18 [Losartan-Hctz 100-25 mg Tab] Meloxicam 7.5 mg PO BID 11/07/18 Methotrexate 8 tab PO QWEEK 11/07/18 Omeprazole 40 mg PO DAILY 11/07/18 Magnesium Oxide [Mag-Ox 400] 400 mg PO DAILYCM #30 tab 11/14/18 amiodarone 200 mg tablet 200 mg PO DAILY #90 tab 11/26/18 carvedilol 25 mg tablet 25 mg PO BID #180 tab 11/26/18 rivaroxaban 20 mg tablet 20 mg PO DINNER #90 tab 11/26/18 tramadol 50 mg tablet 50 mg PO Q6H PRN 11/26/18 Surgical History: Surgical History (Last Updated 11/26/18 @ 11:13 by Silvana Millan) History of bowel resection Onset Date: 11/08/18 Z98.890, Z90.49 History of carpal tunnel release of both wrists Z98.890 History of cholecystectomy Z90.49 History of right hip replacement Z96.641 partial History of rotator cuff surgery Z98.890 left Status post trigger finger release Z98.890 right hand Status post wrist surgery Z98.890 left Surgical History: cholecystectomy, - - Left hip replacement; facial surgery for cancer; plate placed in left forearm; and left rotator cuff surgery; Psychiatric History: No pertinent psych hx Lives: Spouse/ Significant Other Smoking Status: Never smoker Tobacco Use: Non-smoker Alcohol: None Drugs: None - *Family History Maternal Family History: Family History (Last Reviewed 11/26/18 @ 11:13 by Silvana Millan) Mother Pancreatic cancer Father Heart problem Sister Breast cancer History Items: Cancer - pancreatic Review of Systems Constitutional: Denies: Chills, Fever, Weight Change HEENT: Denies: Head Aches, Sinus Congestion, Sinus Drainage Cardiovascular: Denies: Chest Pain, Palpitations Respiratory: Denies: Cough, Shortness of breath at rest, Sputum production Gastrointestinal: Denies: Abdominal Pain, Nausea, Vomiting Genitourinary: Denies: Dysuria Musculoskeletal: Reports: Joint Pain, Joint Tenderness Skin: Denies: Rash, Wounds Neurological: Denies: Numbness, Tingling, Focal weakness Psychiatric: Denies: Anxiety, Depression, Homicidal Ideations, Suicidal Ideations Hematologic/ Lymphatic: Denies: Easy Bruising, Easy Bleeding Patient Problems: Active and Suspected Problems (Last Reviewed 11/08/18 @ 14:38 by Felipe Harley MD) Hip fracture, left (Acute) Objective: Left hip radiographs with AP pelvis reveals appreciable leg length discrepancy of the right lower extremity with a previous hemiarthroplasty. Left hip shows minimally impacted femoral neck fracture on the left side with evidence of cam lesion and joint space narrowing. - Physical Exam General: Alert, Oriented x3, Cooperative, - - Morbidly obese HEENT: Atraumatic Neck: No JVD Lungs: - - Nonlabored breathing Cardiovascular: - - Regular heart rate Abdomen: Non-Distended, Obese Extremities: - - Left lower extremity: Skin clean, dry, and intact. Positive logroll. Patient has limb length discrepancy with right lower extremity shorter than left previous hip fracture surgery Motor is intact dorsiflexion, EHL and plantar flexion. Sensation is intact to light touch saphenous, erik,l superficial peroneal, deep peroneal and tibial distributions. Calves are soft and supple. Vital Signs Temp Pulse Resp BP Pulse Ox 98.1 F 74 16 136/54 H 95 12/10/18 02:35 12/10/18 04:00 12/10/18 02:35 12/10/18 02:35 12/10/18 02:35 Oxygen Delivery Method Room Air Weight: 297 lb 6.457 oz Body Mass Index (BMI) 38.2 Intake and Output for Last 24 Hours 12/08/18 12/09/18 12/10/18 23:59 23:59 23:59 Intake Total 898 / 898 Output Total 800 / 800 Balance 98 / 98 Laboratory Tests Past 24 Hrs 12/09/18 12/09/18 12/09/18 12:05 12:05 14:14 WBC 9.0 RBC 3.49 L Hgb 11.8 L Hct 36.2 L MCV 103.7 H MCH 33.8 H MCHC 32.6 RDW 13.0 RDW Differential 47.5 H Plt Count 285 MPV 9.4 Immature Gran % (Auto) 0.300 Neut % (Auto) 73.2 H Lymph % (Auto) 12.9 L [place] % (Auto) 11.7 H Eos % (Auto) 1.7 Baso % (Auto) 0.2 Absolute Neuts (auto) 6.6 Absolute Lymphs (auto) 1.16 Total Counted Not Reportable PT INR APTT Sodium 139 Potassium 4.3 Chloride 103 Carbon Dioxide 29.0 Anion Gap 7 BUN 19 H Creatinine 1.14 Estim Creat Clear Calc 62.09 Est GFR (MDRD) Af Amer 80 Est GFR (MDRD) Non-Af 66 BUN/Creatinine Ratio 16.7 Glucose 101 Calcium 8.4 L Magnesium Blood Type A NEGATIVE Antibody Screen NEGATIVE 12/09/18 12/09/18 12/10/18 16:45 16:45 05:55 WBC 7.2 RBC 3.18 L Hgb 10.9 L Hct 33.4 L MCV 105.0 H MCH 34.3 H MCHC 32.6 RDW 13.0 RDW Differential 48.0 H Plt Count 237 MPV 9.2 Immature Gran % (Auto) 0.400 Neut % (Auto) 60.3 Lymph % (Auto) 19.8 [place] % (Auto) 15.2 H Eos % (Auto) 3.9 Baso % (Auto) 0.4 Absolute Neuts (auto) 4.3 Absolute Lymphs (auto) 1.42 Total Counted Not Reportable PT 22.3 H INR 2.0 APTT 41.6 H Sodium Potassium Chloride Carbon Dioxide Anion Gap BUN Creatinine Estim Creat Clear Calc Est GFR (MDRD) Af Amer Est GFR (MDRD) Non-Af BUN/Creatinine Ratio Glucose Calcium Magnesium 1.5 L Blood Type Antibody Screen 12/10/18 05:55 WBC RBC Hgb Hct MCV MCH MCHC RDW RDW Differential Plt Count MPV Immature Gran % (Auto) Neut % (Auto) Lymph % (Auto) [place] % (Auto) Eos % (Auto) Baso % (Auto) Absolute Neuts (auto) Absolute Lymphs (auto) Total Counted PT INR APTT Sodium 139 Potassium 4.3 Chloride 103 Carbon Dioxide 28.0 Anion Gap 8 BUN 17 Creatinine 0.97 Estim Creat Clear Calc 72.97 Est GFR (MDRD) Af Amer 97 Est GFR (MDRD) Non-Af 80 BUN/Creatinine Ratio 17.6 Glucose 105 Calcium 8.0 L Magnesium Blood Type Antibody Screen Assessment/Plan All Active Problems (Last Reviewed 11/08/18 @ 14:38 by Felipe Harley MD) Hip fracture, left (Acute) Small bowel obstruction (Acute) Atrial fibrillation (Acute) Left minimally displaced subcapital femoral neck fracture. Based on patient's fracture pattern, overall function health we discussed treatment options include close reduction pertains pinning, hemiarthroplasty and total hip replacement. Patient has no previous antecedent hip pain. He has minimally displaced fracture which would be amenable to fracture fixation. At this time I recommended we proceed with closed reduction percutaneous pinning of the left hip today. Patient is n.p.o. He has been appropriately consented with risks and benefits discussed with the patient including but not limited to blood loss, DVTs, PE, neurovascular damage, infection, the risk of anesthesia including loss of life. This also includes nonunion, malunion and AVN. Patient demonstrates an understanding and wished to proceed. Antibiotics on-call to the operating room. Plan for surgery this afternoon. [facility] Office:
[2018-12-10 09:12] LABS: Vitamin B12 446 pg/mL (211-911)
[2018-12-10] MEDS: Carvedilol 25 MG Tablet PO ×2 (10:01→23:06)
[2018-12-10 10:05] LABS: Magnesium 1.4 mg/dL (1.6-2.6)
--- NOTE | 2018-12-10 10:25 | CASEMGMT ---
[facility] Readmission Note: Last Admission: 11/08/18-11/14/18 Hospitalization course: SBO, AFIB. Surgery 11/08/18 for expl lap and lysis of adhesions. Afib treated with diltiazem infusion, started on Digoxin and Coreg increased. Seen by PT/OT. DC Disposition on 11/14/18: Home with [facility] in [place]. Current Admit Date: 12/09/18 Presentation: Fell @ home. Was ambulating with cane, slipped and landed on L hip. Impacted subcapital fracture of L hip. Consultation: Dr. Zhu- plan is for closed reduction and percutaneous pinning of L hip today. Living arrangements: one story home with . 3 steps into home. Pt or able to drive. DME: cane, raised toilet seat, grab bars, wheeled walker. (Pt denies oxygen, nebulizer or Cpap @ home). Is on 1L NC presently. DC PLAN: undetermined. PT/OT evaluation after surgery. Kyra SHARMA RN ACM
--- NOTE | 2018-12-10 14:21 | PN_ITS ---
<Fidel Schrader - Last Filed: 12/10/18 14:16> Patient Problems: Active and Suspected Problems (Last Reviewed 11/08/18 @ 14:38 by Felipe Harley MD) Hip fracture, left (Acute) Subjective: Pt had increased pain overnight, now somewhat present at rest. He is agreeable to surgery. He had previously fallen and fractured his right hip and had it surgically repaired in the past. He had been doing outpatient PT prior to admission, may need higher LOC at [facility]. No fever/chills. No SOB/cough, CP. No nausea or vomiting. No numbness or tingling. - Physical Exam General: Alert, Oriented x3, Cooperative HEENT: Atraumatic, PERRLA, EOMI, Normocephalic Neck: Supple, No JVD, Negative Carotid Bruits Lungs: Clear to auscultation, Normal air movement Cardiovascular: Regular rate, No murmurs Abdomen: Bowel Sounds Present, Soft, Non Tender Extremities: No edema, Capillary Refill Less than 3 Seconds Skin: No rashes, No breakdown Musculoskeletal: No Tenderness to Palpation of Joints or Extremities Neurological: Cranial nerves II-XII grossly intact Psych/Mental Status: Normal Affect, Appropriate, Alert and oriented to time, place, person, mood and affect Vital Signs Temp Pulse Resp BP Pulse Ox 98.5 F 70 16 132/69 H 98 12/10/18 13:41 12/10/18 13:41 12/10/18 13:41 12/10/18 13:41 12/10/18 13:41 Oxygen Flow Rate (L/min) 1 Oxygen Delivery Method Room Air Weight: 297 lb 6.457 oz Body Mass Index (BMI) 38.2 Intake and Output for Last 24 Hours 12/08/18 12/09/18 12/10/18 23:59 23:59 23:59 Intake Total 898 / 898 Output Total 800 / 800 Balance 98 / 98 Laboratory Tests Past 24 Hrs 12/09/18 12/09/18 12/09/18 14:14 16:45 16:45 WBC RBC Hgb Hct MCV MCH MCHC RDW RDW Differential Plt Count MPV Immature Gran % (Auto) Neut % (Auto) Lymph % (Auto) [place] % (Auto) Eos % (Auto) Baso % (Auto) Absolute Neuts (auto) Absolute Lymphs (auto) Total Counted PT 22.3 H INR 2.0 APTT 41.6 H Sodium Potassium Chloride Carbon Dioxide Anion Gap BUN Creatinine Estim Creat Clear Calc Est GFR (MDRD) Af Amer Est GFR (MDRD) Non-Af BUN/Creatinine Ratio Glucose Calcium Magnesium 1.5 L Vitamin B12 Folate Blood Type A NEGATIVE Antibody Screen NEGATIVE 12/10/18 12/10/18 12/10/18 05:55 05:55 05:55 WBC 7.2 RBC 3.18 L Hgb 10.9 L Hct 33.4 L MCV 105.0 H MCH 34.3 H MCHC 32.6 RDW 13.0 RDW Differential 48.0 H Plt Count 237 MPV 9.2 Immature Gran % (Auto) 0.400 Neut % (Auto) 60.3 Lymph % (Auto) 19.8 [place] % (Auto) 15.2 H Eos % (Auto) 3.9 Baso % (Auto) 0.4 Absolute Neuts (auto) 4.3 Absolute Lymphs (auto) 1.42 Total Counted Not Reportable PT INR APTT Sodium 139 Potassium 4.3 Chloride 103 Carbon Dioxide 28.0 Anion Gap 8 BUN 17 Creatinine 0.97 Estim Creat Clear Calc 72.97 Est GFR (MDRD) Af Amer 97 Est GFR (MDRD) Non-Af 80 BUN/Creatinine Ratio 17.6 Glucose 105 Calcium 8.0 L Magnesium Vitamin B12 446 Folate Blood Type Antibody Screen 12/10/18 12/10/18 05:55 05:55 WBC RBC Hgb Hct MCV MCH MCHC RDW RDW Differential Plt Count MPV Immature Gran % (Auto) Neut % (Auto) Lymph % (Auto) [place] % (Auto) Eos % (Auto) Baso % (Auto) Absolute Neuts (auto) Absolute Lymphs (auto) Total Counted PT INR APTT Sodium Potassium Chloride Carbon Dioxide Anion Gap BUN Creatinine Estim Creat Clear Calc Est GFR (MDRD) Af Amer Est GFR (MDRD) Non-Af BUN/Creatinine Ratio Glucose Calcium Magnesium 1.4 L Vitamin B12 Folate 14.90 Blood Type Antibody Screen Medical Necessity - Tobacco Use Smoking Status: Never smoker Tobacco Use: Non-smoker Assessment/Plan All Active Problems (Last Reviewed 11/08/18 @ 14:38 by Felipe Harley MD) Hip fracture, left (Acute) Small bowel obstruction (Acute) Atrial fibrillation (Acute) 1. Acute x-ray of the left hip-secondary to mechanical fall- Audra to take the patient to the OR today. CT brain negative. Fracture appreciable on x-ray. CXR with small left pleural effusion, atelectasis/infiltrate however patient without respiratory issues at this time. 2. Paroxysmal Afib with recent RVR - now in NSR. Amiodarone, Coreg, Xarelto. 3. Hypertension -stable 4. History of rheumatoid arthritis-on Plaquenil, methotrexate. 5. Obesity - dietary eval. 6. Recent small bowel obstruction-suture appears to be healing well, bowels are working normally. He will need to follow-up as an outpatient with Dr. Harley. DVT prophylaxis: Hold Xarelto, plan to resume tomorrow. DC planning: PTOT, was doing outpatient physical therapy after last admission, he may require higher level of care at discharge this time. This patient was seen by Fidel Schrader PA-C under the supervision of Doctor Micaela. <Maryellen Hinojosa - Last Filed: 12/10/18 15:43> - Physical Exam Vital Signs Temp Pulse Resp BP Pulse Ox 98.5 F 70 16 132/69 H 98 12/10/18 13:41 12/10/18 13:41 12/10/18 13:41 12/10/18 13:41 12/10/18 13:41 Oxygen Flow Rate (L/min) 1 Oxygen Delivery Method Room Air Weight: 134.9 kg Body Mass Index (BMI) 38.2 Intake and Output for Last 24 Hours 12/08/18 12/09/18 12/10/18 23:59 23:59 23:59 Intake Total 898 / 898 Output Total 800 / 800 Balance 98 / 98 Laboratory Tests Past 24 Hrs 12/09/18 12/09/18 12/10/18 16:45 16:45 05:55 WBC 7.2 RBC 3.18 L Hgb 10.9 L Hct 33.4 L MCV 105.0 H MCH 34.3 H MCHC 32.6 RDW 13.0 RDW Differential 48.0 H Plt Count 237 MPV 9.2 Immature Gran % (Auto) 0.400 Neut % (Auto) 60.3 Lymph % (Auto) 19.8 [place] % (Auto) 15.2 H Eos % (Auto) 3.9 Baso % (Auto) 0.4 Absolute Neuts (auto) 4.3 Absolute Lymphs (auto) 1.42 Total Counted Not Reportable PT 22.3 H INR 2.0 APTT 41.6 H Sodium Potassium Chloride Carbon Dioxide Anion Gap BUN Creatinine Estim Creat Clear Calc Est GFR (MDRD) Af Amer Est GFR (MDRD) Non-Af BUN/Creatinine Ratio Glucose Calcium Magnesium 1.5 L Vitamin B12 Folate 12/10/18 12/10/18 12/10/18 05:55 05:55 05:55 WBC RBC Hgb Hct MCV MCH MCHC RDW RDW Differential Plt Count MPV Immature Gran % (Auto) Neut % (Auto) Lymph % (Auto) [place] % (Auto) Eos % (Auto) Baso % (Auto) Absolute Neuts (auto) Absolute Lymphs (auto) Total Counted PT INR APTT Sodium 139 Potassium 4.3 Chloride 103 Carbon Dioxide 28.0 Anion Gap 8 BUN 17 Creatinine 0.97 Estim Creat Clear Calc 72.97 Est GFR (MDRD) Af Amer 97 Est GFR (MDRD) Non-Af 80 BUN/Creatinine Ratio 17.6 Glucose 105 Calcium 8.0 L Magnesium Vitamin B12 446 Folate 14.90 12/10/18 05:55 WBC RBC Hgb Hct MCV MCH MCHC RDW RDW Differential Plt Count MPV Immature Gran % (Auto) Neut % (Auto) Lymph % (Auto) [place] % (Auto) Eos % (Auto) Baso % (Auto) Absolute Neuts (auto) Absolute Lymphs (auto) Total Counted PT INR APTT Sodium Potassium Chloride Carbon Dioxide Anion Gap BUN Creatinine Estim Creat Clear Calc Est GFR (MDRD) Af Amer Est GFR (MDRD) Non-Af BUN/Creatinine Ratio Glucose Calcium Magnesium 1.4 L Vitamin B12 Folate Assessment/Plan This patient was seen in conjunction with MARVIN Callejas. I have independently interviewed and examined the patient and reviewed pertinent historical, laboratory, and other data. Please refer to MARVIN Callejas note for his patient's presentation, findings, and recommendations. I have reviewed and his note and concur with his documentation Patient was seen and examined. Complains of slight pain in the left hip when he moves. He was going to go for surgery at 2 PM. Denied any dizziness or shortness of breath or chest pain. No acute events were seen overnight Vitals are stable. Physical Exam: Gen: AO x3, not pale, not jaundiced, obese, well hydrated CVS:HS I +II, regular, no murmurs RESP: Diminished at lung bases GI: BS present, soft, nontender, no palpable organs EXT:No edema ASSESSMENT: 1. Acute traumatic fracture of the left hip, orthopedics consulted 2. Paroxysmal atrial fibrillation 3. Hypertension 4. Obesity Plan: We will up with orthopedic recommendation postoperatively, Continue with pain control PT and OT to evaluate and treat Code Visit Inpatient E&M: 42156 Subs Hosp L2
--- NOTE | 2018-12-10 14:35 | NURSING ---
PT TO OR VIA BED.
--- NOTE | 2018-12-10 15:32 | RAD_ITS ---
STUDY: HIP LEFT REASON FOR EXAM: Male, 78 years old. Closed reduction with percutaneous pinning. TECHNIQUE: 3 views of the left hip with fluoroscopy. COMPARISON: None. FINDINGS: 3 views left hip with fluoroscopy demonstrates a transverse neck mildly comminuted fracture with femoral neck anchor screws in place showing normal alignment and orientation. RAD/Hip Min 2 Views (Portable) IMPRESSION: Fluoroscopic findings as above. Electronically Signed: Candido Mccormick DO at 20:35 EST , Service support ,
[2018-12-10 16:11] LABS: Prothrombin Time Fingerstick 17.6 SEC (11.9-14.4)
--- NOTE | 2018-12-10 17:17 | PCM.OPRPT ---
Report of Operation Date of Procedure: 12/10/18 Pre-Operative Diagnosis: Left valgus impacted femoral neck fracture Post-Operative Diagnosis: Left valgus impacted femoral neck fracture Surgery/Procedure Performed:: Closed reduction percutaneous pinning left hip Description of Surgical Findings:: Stable reduction with good fixation. crane operator: None Type of Anesthesia:: General Anesthesiologist: Daniel Blank Special Medications: 900 mg clindamycin Estimated Blood Loss (mL): 5 Fluids Replaced: 700 ml crystalloid Description of Procedure: On the date of procedure patient's left lower extremity is was marked in the preoperative area. The patient was then taken back to the operating room where they were placed on the fracture table in the supine position. All bony prominences were identified a well-padded. Anesthesia assumed control of the C-spine and airway and remained controlled throughout the remainder of the procedure. A perineal post was placed and the pts legs were positioned for appropriate fluoroscopic views. The left lower extremity was prepped in a sterile fashion using chlorhexidine. The surgeon scrubbed at this time. Upon reentering the room the left extremity was draped in a standard orthopedic fashion. A timeout was then called and everyone agreed upon the side, the site, the procedure to be performed, patient's identity and antibiotics given. Fluoroscopy was used to verify the starting position of the initial pin which was above the level of the lesser trochanter. The initial pin was inserted percutaneously placed and the pin screw driver operator was used to drive the inferior pin using fluoroscopic guidance into the appropriate position. The appropriate position was verified on the AP we then confirmed it on the lateral. Once we're happy with the position of our initial pin an incision was made in line with the pin and the parallel pin guide were used to place the 2 superior pins along the anterior and posterior cortex of the femoral neck. Once all 3 pins were placed just beneath the subchondral bone of the femoral head the depth gauge was used to measure the length. The inferior screw was 105 mm, the anterior-superior screws was 105 mm and the posterior-superior screws was 100 mm . The drill was then used to perforate the lateral cortex. All 3 screws were then placed under fluoroscopic guidance and final tightening was done by hand. Final x-rays were then taken to verify the position of the screws and the final reduction. Copious irrigation was then used to irrigate out the wound. The wound was closed using 2-0 Vicryl and 4-0 Monocryl with Steri-Strips. A sterile dressing was placed with Xeroform. Patient was then awakened by anesthesia and transferred to the PACU for recovery. Post op plan PT: Weightbearing 50% x 2 weeks DVT ppx: Patient may resume Xarelto tomorrow Follow up: 2 weeks for wound check Grafts/Implants Used: 3 Synthes screws, 7.3 mm cannulated screw, 105, 105, 100 mm - Complications None - Admit VTE Documentation VTE Present on Admission: No VTE Mechan Device Prophylaxis: SCD's, Thigh High TIMOTHY Hose VTE Pharm Prophylaxis ordered?: Yes
--- NOTE | 2018-12-10 17:20 | OP.PCM_ITS ---
Report of Operation Date of Procedure: 12/10/18 Pre-Operative Diagnosis: Left valgus impacted femoral neck fracture Post-Operative Diagnosis: Left valgus impacted femoral neck fracture Surgery/Procedure Performed:: Closed reduction percutaneous pinning left hip Description of Surgical Findings:: Stable reduction with good fixation. software sales consultant: None Type of Anesthesia:: General Anesthesiologist: Daniel Blank Special Medications: 900 mg clindamycin Estimated Blood Loss (mL): 5 Fluids Replaced: 700 ml crystalloid Description of Procedure: On the date of procedure patient's left lower extremity is was marked in the preoperative area. The patient was then taken back to the operating room where they were placed on the fracture table in the supine position. All bony prominences were identified a well-padded. Anesthesia assumed control of the C- spine and airway and remained controlled throughout the remainder of the procedure. A perineal post was placed and the pts legs were positioned for appropriate fluoroscopic views. The left lower extremity was prepped in a sterile fashion using chlorhexidine. The surgeon scrubbed at this time. Upon reentering the room the left extremity was draped in a standard orthopedic fashion. A timeout was then called and everyone agreed upon the side, the site, the procedure to be performed, patient's identity and antibiotics given. Fluoroscopy was used to verify the starting position of the initial pin which was above the level of the lesser trochanter. The initial pin was inserted percutaneously placed and the pin delivery driver assistant was used to drive the inferior pin using fluoroscopic guidance into the appropriate position. The appropriate position was verified on the AP we then confirmed it on the lateral. Once we're happy with the position of our initial pin an incision was made in line with the pin and the parallel pin guide were used to place the 2 superior pins along the anterior and posterior cortex of the femoral neck. Once all 3 pins were placed just beneath the subchondral bone of the femoral head the depth gauge was used to measure the length. The inferior screw was 105 mm, the anterior-superior screws was 105 mm and the posterior-superior screws was 100 mm . The drill was then used to perforate the lateral cortex. All 3 screws were then placed under fluoroscopic guidance and final tightening was done by hand. Final x-rays were then taken to verify the position of the screws and the final reduction. Copious irrigation was then used to irrigate out the wound. The wound was closed using 2-0 Vicryl and 4-0 Monocryl with Steri-Strips. A sterile dressing was placed with Xeroform. Patient was then awakened by anesthesia and transferred to the PACU for recovery. Post op plan PT: Weightbearing 50% x 2 weeks DVT ppx: Patient may resume Xarelto tomorrow Follow up: 2 weeks for wound check Grafts/Implants Used: 3 Synthes screws, 7.3 mm cannulated screw, 105, 105, 100 mm - Complications None - Admit VTE Documentation VTE Present on Admission: No VTE Mechan Device Prophylaxis: SCD's, Thigh High TIMOTHY Hose VTE Pharm Prophylaxis ordered?: Yes
[2018-12-10] MEDS: hydroCHLOROthiazide 25 MG Tablet PO (18:41)
[2018-12-10] MEDS: Pantoprazole Sodium 40 MG Tablet PO (18:41)
[2018-12-10] MEDS: Magnesium Oxide 400 MG Tablet PO (18:42)
[2018-12-10] MEDS: Losartan Potassium 100 MG Tablet PO (18:42)
[2018-12-10] MEDS: Amiodarone 200 MG Tablet PO (18:42)
[2018-12-10] MEDS: Folic Acid 1 MG Tablet PO (18:42)
[2018-12-10] MEDS: Docusate Sodium 100 MG Capsule PO ×2 (18:42→23:06)
[2018-12-10] MEDS: Hydroxychloroquine 200 MG Tablet PO ×2 (18:42→23:07)
[2018-12-11] VITALS (11 sets, daily range): BP systolic 117–158; BP diastolic 62–79; PULSE 65–77; RESP 18; TEMP 36.3–37.2; O2SAT 94–97
[2018-12-11] MEDS: oxyCODONE 5 MG Tablet PO (03:58)
[2018-12-11] MEDS: Nystatin Powder 15gm Bottle 1 APPLIC TOPICAL ×3 (05:51→21:14)
--- NOTE | 2018-12-11 07:04 | PCM.PN.ORT ---
Patient Problems: Active and Suspected Problems (Last Reviewed 11/08/18 @ 14:38 by Felipe Harley MD) Hip fracture, left (Acute) Subjective: The patient was sitting in bed upon examination. Patient denies any chest pain, shortness of breath, dizziness, lightheadedness, nausea or vomiting, or calf pain. Pain is controlled on medications. No adverse overnight events. Overall pain is controlled. Patient is currently on weightbearing restrictions. Objective: Vital signs stable and afebrile. Patient is able to plantarflex and dorsiflex actively. Sensation is intact to light touch to saphenous, sural, superficial and deep peroneal, and tibial distribution. Dressing is with minimal bloody discharge Negative Homans bilaterally, negative signs and symptoms of DVT. - Physical Exam General: Alert, Oriented x3, Cooperative, No apparent distress Vital Signs Temp Pulse Resp BP Pulse Ox 98.9 F 68 18 149/79 H 95 12/11/18 04:10 12/11/18 04:10 12/11/18 04:10 12/11/18 04:10 12/11/18 04:10 Oxygen Flow Rate (L/min) 2 Oxygen Delivery Method Room Air Weight: 134.9 kg Body Mass Index (BMI) 38.2 Intake and Output for Last 24 Hours 12/09/18 12/10/18 12/11/18 23:59 23:59 23:59 Intake Total 1498 / 1498 1850 / 1850 Output Total 1075 / 1075 350 / 350 Balance 423 / 423 1500 / 1500 Laboratory Tests Past 24 Hrs 12/10/18 12/10/18 12/10/18 05:55 05:55 05:55 WBC RBC Hgb Hct MCV MCH MCHC RDW RDW Differential Plt Count Neut % (Auto) Absolute Neuts (auto) Total Counted POC PT INR Sodium Potassium Chloride Carbon Dioxide Anion Gap BUN Creatinine Est GFR (MDRD) Af Amer Est GFR (MDRD) Non-Af BUN/Creatinine Ratio Glucose Calcium Magnesium 1.4 L Vitamin B12 446 Folate 14.90 12/10/18 12/11/18 12/11/18 16:04 06:24 06:24 WBC Pending RBC Pending Hgb Pending Hct Pending MCV Pending MCH Pending MCHC Pending RDW Pending RDW Differential Pending Plt Count Pending Neut % (Auto) Pending Absolute Neuts (auto) Pending Total Counted Pending POC PT 17.6 H INR 1.50 Sodium Pending Potassium Pending Chloride Pending Carbon Dioxide Pending Anion Gap Pending BUN Pending Creatinine Pending Est GFR (MDRD) Af Amer Pending Est GFR (MDRD) Non-Af Pending BUN/Creatinine Ratio Pending Glucose Pending Calcium Pending Magnesium Vitamin B12 Folate Medical Necessity - Tobacco Use Smoking Status: Never smoker Tobacco Use: Non-smoker Assessment/Plan All Active Problems (Last Reviewed 11/08/18 @ 14:38 by Felipe Harley MD) Hip fracture, left (Acute) Small bowel obstruction (Acute) Atrial fibrillation (Acute) 1. S/P left hip closed reduction percutaneous pinning POD #1 2. Continue Pain Medications: Continue with primary medicine regimen. Will add in extra strength Tylenol 500 mg 2 tablets every 8 hours scheduled for pain. Use oxycodone for breakthrough pain 3. DVT Prophylaxis: Patient will resume his Xarelto today 4. PT/OT: Partial weightbearing 50% x 2 weeks left lower extremity. 5. H & H: Pending, asymptomatic 6. Encouraged Incentive Spirometry 7. Continue postoperative medical management per medicine 8. Disposition: Due to patient's partial weightbearing patient may be candidate for prison for postoperative management.
[2018-12-11 07:09] LABS: Absolute Lymphocyte Count 0.54 X10^3/ul (0.83-4.51); Absolute Neutrophil Count 9.1 X10^3/uL (2.0-7.7); Basophil# 0.01 X10^3/uL; Basophil% 0.1 % (0-1); Hematocrit 34.8 % (40-54); Hemoglobin 11.2 g/dl (13.0-16.5); Lymphocyte # 0.54 X10^3/ul (4.0); Lymphocyte % 5.2 % (19-41); Mean Corp Hgb Conc 32.2 g/gl (32-36); Mean Corpuscular Hgb 33.1 pg (27.0-32.0); Mean Platelet Vol. 9.7 fl (6.2-12.0); Monocyte% 7.6 % (0-10); Neutrophil # 9.09 X10^3/uL (2.7-7.7); Neutrophil % 86.9 % (47-70); Platelet Count 251 K/mm3 (150-450); RBC Distribution Width CV 12.9 % (11.6-14.6); Red Blood Count 3.38 M/mm3 (4.6-6.2); White Blood Count 10.5 K/mm3 (4.4-11.0)
[2018-12-11 07:10] LABS: Differential Indicated SCAN CRITERIA MET; POSITIVE COUNT NO; POSITIVE DIFFERENTIAL YES; POSITIVE MORPHOLOGY NO
[2018-12-11 07:29] LABS: Anion Gap 8 (5-15); BUN 18 mg/dL (7-18); BUN/Creat Ratio 18.8 RATIO (10-20); Calcium,Total 8.2 mg/dL (8.5-10.1); Chloride 104 mmol/L (98-107); Creatinine, Serum 0.96 mg/dL (0.70-1.30); EST Glomerular Filtration Rate 81 mL/min (>60); Est Glom Filt Rate - Afr Amer 98 mL/min (>60); Estimated Creatinine Clearance 73.73 ml/min; Glucose 163 mg/dL (74-106); Potassium 4.1 mmol/L (3.5-5.1); Sodium Level 138 mmol/L (136-145)
[2018-12-11 08:17] LABS: Magnesium 1.7 mg/dL (1.6-2.6)
[2018-12-11] MEDS: Magnesium Oxide 400 MG Tablet PO (09:09)
[2018-12-11] MEDS: Folic Acid 1 MG Tablet PO (09:09)
[2018-12-11] MEDS: Hydroxychloroquine 200 MG Tablet PO ×2 (09:10→21:14)
[2018-12-11] MEDS: Calcium (Elemental) 500 MG Tablet 1000 MG PO (09:11)
[2018-12-11] MEDS: Carvedilol 25 MG Tablet PO ×2 (09:12→21:14)
[2018-12-11] MEDS: Docusate Sodium 100 MG Capsule PO ×2 (09:12→21:14)
[2018-12-11] MEDS: Amiodarone 200 MG Tablet PO (09:12)
[2018-12-11] MEDS: hydroCHLOROthiazide 25 MG Tablet PO (09:13)
[2018-12-11] MEDS: Acetaminophen 500 MG Tablet 1000 MG PO ×3 (09:13→21:14)
[2018-12-11] MEDS: Losartan Potassium 100 MG Tablet PO (09:13)
[2018-12-11] MEDS: oxyCODONE 5 MG Tablet 10 MG PO (09:28)
[2018-12-11] MEDS: Pantoprazole Sodium 40 MG Tablet PO (10:03)
--- NOTE | 2018-12-11 13:30 | CASEMGMT ---
Social Work Note RN updated this worker that pt would like [facility], [facility] or [facility] at discharge. SW spoke with Natalia with [facility] as [facility] doesn't have any beds currently. Per Natalia she would be able to accept pt tomorrow on [facility]. SW met with pt to confirm discharge plans. Pt is alert and orientated x3. SW informed pt that he has able to discharge to tomorrow and explained that [facility] doesn't have any beds currently. Pt asked this worker if he can go anywhere. SW explained that all SNF will accept his insurance and that this worker would have to call to check on bed availability if pt decides to go to SNF in the community. Pt states that he would like to speak to his before making a decision. SW informed pt that this worker will stop by later to confirm discharge plans. Pt states understanding. Plan: [facility] vs SNF Shivani Watts AIR TRAFFIC INSTRUCTOR, VOCATIONAL REHABILITATION ADMINISTRATOR
--- NOTE | 2018-12-11 14:06 | PCM.PROGNOTE ---
Patient Problems: Active and Suspected Problems (Last Reviewed 11/08/18 @ 14:38 by Felipe Harley MD) Hip fracture, left (Acute) Subjective: Pt c/o constipation, sat on toilet this AM but never could actually have BM. He requests his daily miralax be restarted. Pain is worse today, pain regimen adjusted. No SOB/cough. No fever/chills. Appetite intact, no nausea / vomiting. Plan is for SNF tomorrow. - Physical Exam General: Alert, Oriented x3, Cooperative HEENT: Atraumatic, PERRLA, EOMI, Normocephalic Neck: Supple, No JVD, Negative Carotid Bruits Lungs: Clear to auscultation, Normal air movement Cardiovascular: Regular rate, No murmurs Abdomen: Bowel Sounds Present, Soft, Non Tender Extremities: No edema, Capillary Refill Less than 3 Seconds Skin: No rashes, No breakdown Musculoskeletal: No Tenderness to Palpation of Joints or Extremities Neurological: Cranial nerves II-XII grossly intact Psych/Mental Status: Normal Affect, Appropriate, Alert and oriented to time, place, person, mood and affect Vital Signs Temp Pulse Resp BP Pulse Ox 97.8 F 77 18 158/76 H 94 12/11/18 10:00 12/11/18 10:00 12/11/18 10:00 12/11/18 10:00 12/11/18 10:00 Oxygen Flow Rate (L/min) 2 Oxygen Delivery Method Room Air Weight: 297 lb 6.457 oz Body Mass Index (BMI) 38.2 Intake and Output for Last 24 Hours 12/09/18 12/10/18 12/11/18 23:59 23:59 23:59 Intake Total 1498 / 1498 1850 / 1850 Output Total 1075 / 1075 350 / 350 Balance 423 / 423 1500 / 1500 Laboratory Tests Past 24 Hrs 12/10/18 12/11/18 12/11/18 16:04 06:24 06:24 WBC 10.5 RBC 3.38 L Hgb 11.2 L Hct 34.8 L MCV 103.0 H MCH 33.1 H MCHC 32.2 RDW 12.9 RDW Differential 47.0 H Plt Count 251 MPV 9.7 Immature Gran % (Auto) 0.200 Neut % (Auto) 86.9 H Lymph % (Auto) 5.2 L Bartholomew % (Auto) 7.6 Eos % (Auto) 0.0 Baso % (Auto) 0.1 Absolute Neuts (auto) 9.1 H Absolute Lymphs (auto) 0.54 L Total Counted Not Reportable Differential Comment COMMENT POC PT 17.6 H INR 1.50 Sodium 138 Potassium 4.1 Chloride 104 Carbon Dioxide 26.0 Anion Gap 8 BUN 18 Creatinine 0.96 Estim Creat Clear Calc 73.73 Est GFR (MDRD) Af Amer 98 Est GFR (MDRD) Non-Af 81 BUN/Creatinine Ratio 18.8 Glucose 163 H Calcium 8.2 L Magnesium 12/11/18 06:24 WBC RBC Hgb Hct MCV MCH MCHC RDW RDW Differential Plt Count MPV Immature Gran % (Auto) Neut % (Auto) Lymph % (Auto) [place] % (Auto) Eos % (Auto) Baso % (Auto) Absolute Neuts (auto) Absolute Lymphs (auto) Total Counted Differential Comment POC PT INR Sodium Potassium Chloride Carbon Dioxide Anion Gap BUN Creatinine Estim Creat Clear Calc Est GFR (MDRD) Af Amer Est GFR (MDRD) Non-Af BUN/Creatinine Ratio Glucose Calcium Magnesium 1.7 Medical Necessity - Tobacco Use Smoking Status: Never smoker Tobacco Use: Non-smoker Assessment/Plan All Active Problems (Last Reviewed 11/08/18 @ 14:38 by Felipe Harley MD) Hip fracture, left (Acute) Small bowel obstruction (Acute) Atrial fibrillation (Acute) 1. Acute x-ray of the left hip-secondary to mechanical fall- POD#1. Increased pain, adjusted pain regimen. -Aggressive bowel regimen with recent SBO. F/u Cricket as o/p. 2. Paroxysmal Afib with recent RVR - now in NSR. Amiodarone, Coreg, Xarelto. 3. Hypertension -stable 4. History of rheumatoid arthritis-on Plaquenil, methotrexate. 5. Obesity - dietary eval. Carb controlled diet added. 6. Recent small bowel obstruction-suture appears to be healing well, bowels are working normally. He will need to follow-up as an outpatient with Dr. Harley. 7. Macrocytic anemia - improved. Negative b12/folate. DVT prophylaxis: Xarelto GABRIELLA planning: SNF tomorrow This patient was seen by Fidel Schrader PA-C under the supervision of Doctor John
[2018-12-11] MEDS: Polyethylene Glycol 3350 17 GM PACKET PO (14:25)
--- NOTE | 2018-12-11 15:00 | CASEMGMT ---
Social Work Note SW in to speak with pt and pt's Altagracia to confirm discharge plans. SW explained acceptance to [facility] and also explained pt's other options including SNF in area. Pt and pt's agreeable to [facility] at discharge. SW explained that if medically cleared, pt will be able to discharge to [facility] tomorrow. Pt and pt's states understanding. Plan: [facility] tomorrow Shivani Watts HOSE SUSPENDER CUTTER, RUG HOOKER HAND
[2018-12-11] MEDS: Rivaroxaban 20 MG Tablet PO ×2 (16:55→16:58)
[2018-12-12] MEDS: oxyCODONE 5 MG Tablet 10 MG PO ×3 (00:20→23:39)
[2018-12-12 02:51] VITALS: BP 122/67; PULSE 77; RESP 18; TEMP 37.2; O2SAT 94
[2018-12-12 03:14] VITALS: PULSE 58
[2018-12-12] MEDS: Nystatin Powder 15gm Bottle 1 APPLIC TOPICAL ×3 (05:19→21:08)
[2018-12-12] MEDS: Acetaminophen 500 MG Tablet 1000 MG PO ×3 (05:19→21:07)
[2018-12-12 07:13] VITALS: PULSE 60
--- NOTE | 2018-12-12 07:18 | PCM.PN.ORT ---
Patient Problems: Active and Suspected Problems (Last Reviewed 11/08/18 @ 14:38 by Felipe Harley MD) Hip fracture, left (Acute) Subjective: The patient was sitting in bed upon examination. Patient denies any chest pain, shortness of breath, dizziness, lightheadedness, nausea or vomiting, or calf pain. Pain is controlled on medications. No adverse overnight events. Patient states his pain is under better control today after adjustments yesterday by medicine. Plan is for discharge to the fourth floor rehab unit at [facility] when medically ready. Objective: Vital signs stable and afebrile. Patient is able to plantarflex and dorsiflex actively. Sensation is intact to light touch to saphenous, sural, superficial and deep peroneal, and tibial distribution. Dressing is with minimal bloody discharge, stable from yesterday Negative Homans bilaterally, negative signs and symptoms of DVT. - Physical Exam General: Alert, Oriented x3, Cooperative, No apparent distress Vital Signs Temp Pulse Resp BP Pulse Ox 98.9 F 60 18 122/67 H 94 12/12/18 02:51 12/12/18 07:13 12/12/18 02:51 12/12/18 02:51 12/12/18 02:51 Oxygen Flow Rate (L/min) 2 Oxygen Delivery Method Room Air Weight: 134.9 kg Body Mass Index (BMI) 38.2 Intake and Output for Last 24 Hours 12/10/18 12/11/18 12/12/18 23:59 23:59 23:59 Intake Total 1498 / 1498 1850 / 1850 Output Total 1075 / 1075 350 / 350 Balance 423 / 423 1500 / 1500 Laboratory Tests Past 24 Hrs 12/11/18 12/11/18 12/11/18 06:24 06:24 06:24 Total Counted Not Reportable Differential Comment COMMENT Sodium 138 Potassium 4.1 Chloride 104 Carbon Dioxide 26.0 Anion Gap 8 BUN 18 Creatinine 0.96 Estim Creat Clear Calc 73.73 Est GFR (MDRD) Af Amer 98 Est GFR (MDRD) Non-Af 81 BUN/Creatinine Ratio 18.8 Glucose 163 H Calcium 8.2 L Magnesium 1.7 Medical Necessity - Tobacco Use Smoking Status: Never smoker Tobacco Use: Non-smoker Assessment/Plan All Active Problems (Last Reviewed 11/08/18 @ 14:38 by Felipe Harley MD) Hip fracture, left (Acute) Small bowel obstruction (Acute) Atrial fibrillation (Acute) 1. S/P left hip closed reduction percutaneous pinning POD #2 2. Continue Pain Medications: Continue with primary medicine regimen. Will add in extra strength Tylenol 500 mg 2 tablets every 8 hours scheduled for pain. Use oxycodone for breakthrough pain 3. DVT Prophylaxis: Patient will resume his Xarelto today 4. PT/OT: Partial weightbearing 50% x 2 weeks left lower extremity. 5. H & H: Pending, asymptomatic 6. Encouraged Incentive Spirometry 7. Continue postoperative medical management per medicine 8. Disposition: Due to patient's partial weightbearing patient may be candidate for chcf for postoperative management. Patient has been accepted to the fourth floor rehabilitation unit. Plan will be for discharge per medicine service when they feel patient is medically stable. Possible discharge today. Dressing will need to be removed 5 days postoperatively. Okay to use dry dressing after dressing has been removed. Continue with pain medications listed above. Continue with DVT prophylaxis. Patient will continue with partial weightbearing 50% for minimum 2 weeks postoperatively. We will follow-up with x-rays at [facility] at 2 weeks postoperatively. Patient will need scheduled appointment 2 weeks postoperatively at [facility].
--- NOTE | 2018-12-12 07:21 | PN.ORTHO_ITS ---
Patient Problems: Active and Suspected Problems (Last Reviewed 11/08/18 @ 14:38 by Felipe Harley MD) Hip fracture, left (Acute) Subjective: The patient was sitting in bed upon examination. Patient denies any chest pain, shortness of breath, dizziness, lightheadedness, nausea or vomiting, or calf pain. Pain is controlled on medications. No adverse overnight events. Patient states his pain is under better control today after adjustments yesterday by medicine. Plan is for discharge to the fourth floor rehab unit at [facility] when medically ready. Objective: Vital signs stable and afebrile. Patient is able to plantarflex and dorsiflex actively. Sensation is intact to light touch to saphenous, sural, superficial and deep peroneal, and tibial distribution. Dressing is with minimal bloody discharge, stable from yesterday Negative Homans bilaterally, negative signs and symptoms of DVT. - Physical Exam General: Alert, Oriented x3, Cooperative, No apparent distress Vital Signs Temp Pulse Resp BP Pulse Ox 98.9 F 60 18 122/67 H 94 12/12/18 02:51 12/12/18 07:13 12/12/18 02:51 12/12/18 02:51 12/12/18 02:51 Oxygen Flow Rate (L/min) 2 Oxygen Delivery Method Room Air Weight: 134.9 kg Body Mass Index (BMI) 38.2 Intake and Output for Last 24 Hours 12/10/18 12/11/18 12/12/18 23:59 23:59 23:59 Intake Total 1498 / 1498 1850 / 1850 Output Total 1075 / 1075 350 / 350 Balance 423 / 423 1500 / 1500 Laboratory Tests Past 24 Hrs 12/11/18 12/11/18 12/11/18 06:24 06:24 06:24 Total Counted Not Reportable Differential Comment COMMENT Sodium 138 Potassium 4.1 Chloride 104 Carbon Dioxide 26.0 Anion Gap 8 BUN 18 Creatinine 0.96 Estim Creat Clear Calc 73.73 Est GFR (MDRD) Af Amer 98 Est GFR (MDRD) Non-Af 81 BUN/Creatinine Ratio 18.8 Glucose 163 H Calcium 8.2 L Magnesium 1.7 Medical Necessity - Tobacco Use Smoking Status: Never smoker Tobacco Use: Non-smoker Assessment/Plan All Active Problems (Last Reviewed 11/08/18 @ 14:38 by Felipe Harley MD) Hip fracture, left (Acute) Small bowel obstruction (Acute) Atrial fibrillation (Acute) 1. S/P left hip closed reduction percutaneous pinning POD #2 2. Continue Pain Medications: Continue with primary medicine regimen. Will add in extra strength Tylenol 500 mg 2 tablets every 8 hours scheduled for pain. Use oxycodone for breakthrough pain 3. DVT Prophylaxis: Patient will resume his Xarelto today 4. PT/OT: Partial weightbearing 50% x 2 weeks left lower extremity. 5. H & H: Pending, asymptomatic 6. Encouraged Incentive Spirometry 7. Continue postoperative medical management per medicine 8. Disposition: Due to patient's partial weightbearing patient may be candidate for fdc for postoperative management. Patient has been accepted to the fourth floor rehabilitation unit. Plan will be for discharge per medicine service when they feel patient is medically stable. Possible discharge today. Dressing will need to be removed 5 days postoperatively. Okay to use dry dressing after dressing has been removed. Continue with pain medications listed above. Continue with DVT prophylaxis. Patient will continue with partial weightbearing 50% for minimum 2 weeks postoperatively. We will follow-up with x-rays at [facility] at 2 weeks postoperatively. Patient will need scheduled appointment 2 weeks postoper atively at [facility].
--- NOTE | 2018-12-12 08:32 | PCM.EXTCARCO ---
- Diet 12/11/18 08:47 Diet: Cardiac: Carb-Controlled Is pt able to select menu?: Yes - Routine Orders/Code Status Suppository Type: Dulcolax 10mg Suppository Frequency: Daily PRN Routine Lab Work: CBC - 5 days, BMP - 5 days Code Status: Full Code - Wound(s) LEFT HIP Wound Type: Surgical Incision Dressing Change: OPSITE WITH TELFA - Therapies Weight Bearing: Partial weight bearing Physical Therapy: Eval and Treat Occupational Therapy: Eval and Treat - Problem/Diagnosis (1) Hip fracture, left Status: Acute Current Visit: Yes (2) Paroxysmal A-fib Status: Chronic Current Visit: Yes (3) Obesity Status: Chronic Current Visit: Yes (4) HTN (hypertension) Status: Chronic Current Visit: No - Allergies/Procedures Done in Hospital Allergies/Adverse Reactions: Allergies Penicillins Allergy (Severe, Verified 12/09/18 11:58) rash Procedures: None - Type of Care/Length of Stay Estimated LOS: Convalescent Care Less Than 30 days Type of Care Needed: Skilled Rehab Potential: Fair Prognosis: Fair - Additional Orders/Day of Discharge Day of Discharge: 12/12/18 - Follow Up Care Primary Care Physician: Cely Kang,Out of [Primary Care Provider] - Please follow up with your Primary Care Physician in: 2 weeks Please Follow Up With: Herminio Zhu MD When: 2 weeks
[2018-12-12 08:51] VITALS: BP 141/67; PULSE 70; RESP 18; TEMP 36.3; O2SAT 96
[2018-12-12] MEDS: Pantoprazole Sodium 40 MG Tablet PO ×2 (08:54→09:00)
[2018-12-12] MEDS: Calcium (Elemental) 500 MG Tablet 1000 MG PO (08:54)
[2018-12-12] MEDS: Carvedilol 25 MG Tablet PO ×2 (08:54→21:07)
--- NOTE | 2018-12-12 08:58 | DCINST_ITS ---
- Discharge Diagnoses Current Active Problems: Current Active and Chronic Problems (Last Reviewed 11/08/18 @ 14:38 by Felipe Harley MD) Paroxysmal A-fib (Chronic) Hip fracture, left (Acute) Obesity (Chronic) You will use the following diet at home:: Calorie/Carbohydrate Controlled (specify 1200, 1400, etc) - 1999, Cardiac - <2 g sodium daily Your food should be the consistency of: Regular Your liquids should be the consistency of: Regular/Thin Discharge Activity: Return to Normal Activity Weight Bearing Status: - - Weight bearing as directed by orthopedics Allergies/Adverse Reactions: Allergies Penicillins Allergy (Severe, Verified 12/09/18 11:58) rash Medications to take at Discharge Folic Acid 1 mg PO DAILY 11/07/18 Hydroxychloroquine [Plaquenil] 1 tab PO BID 11/07/18 Losartan/Hydrochlorothiazide [Losartan-Hctz 100-25 mg Tab] 1 tab PO DAILY 11/07/18 Meloxicam 7.5 mg PO BID 11/07/18 Methotrexate 8 tab PO QWEEK 11/07/18 Omeprazole 40 mg PO DAILY 11/07/18 Magnesium Oxide [Mag-Ox 400] 400 mg PO DAILYCM #30 tab 11/14/18 amiodarone 200 mg tablet 200 mg PO DAILY #90 tab 11/26/18 carvedilol 25 mg tablet 25 mg PO BID #180 tab 11/26/18 rivaroxaban 20 mg tablet 20 mg PO DAILY #90 tab 12/11/18 Acetaminophen [Tylenol] 1,000 mg PO Q8 tablet 12/12/18 Calcium (Elemental) [Os-Emmanuel 500] 1,000 mg PO DAILY@0800 tablet 12/12/18 Cholecalciferol (VIT D3) [Vitamin D3] 1,000 unit PO DAILY@0800 tablet 12/12/18 Docusate Sodium [Colace] 100 mg PO BID capsule 12/12/18 Magnesium Hydroxide [Milk Of Magnesia] 30 ml PO DAILY PRN PRN udc 12/12/18 Nystatin Powder [Mycostatin Powder] 1 applic TOPICAL TID bottle 12/12/18 Oxycodone [Oxyir] 10 mg PO Q4H PRN PRN 2 Days #24 tab 12/12/18 Polyethylene Glycol 3350 [Miralax] 17 gm PO DAILY packet 12/12/18 The following prescriptions were given: Oxycodone [Oxyir] 10 mg PO Q4H PRN PRN 2 Days #24 tab PRN Reason: Moderate Pain (pain scale 4-5) Primary Care Physician: Cely Kang,Out of [Primary Care Provider] - Please follow up with your Primary Care Physician in: 2 weeks Test Results: Test results from this visit will be discussed in further detail at your follow- up appointment, if applicable. Please Follow Up With: Herminio Zhu MD When: 2 weeks Proposed Discharge Date: 12/12/18
[2018-12-12] MEDS: Docusate Sodium 100 MG Capsule PO ×2 (09:00→21:07)
[2018-12-12] MEDS: Amiodarone 200 MG Tablet PO (09:00)
[2018-12-12] MEDS: Hydroxychloroquine 200 MG Tablet PO ×2 (09:01→21:07)
[2018-12-12] MEDS: Folic Acid 1 MG Tablet PO (09:01)
[2018-12-12] MEDS: Losartan Potassium 100 MG Tablet PO (09:01)
[2018-12-12] MEDS: Magnesium Oxide 400 MG Tablet PO (09:01)
[2018-12-12] MEDS: hydroCHLOROthiazide 25 MG Tablet PO (09:01)
[2018-12-12] MEDS: Magnesium Hydroxide 30 ML UDC PO (09:02)
[2018-12-12] MEDS: Polyethylene Glycol 3350 17 GM PACKET PO (09:02)
--- NOTE | 2018-12-12 11:27 | CASEMGMT ---
Addendum entered by Shivani Watts 12/12/18 11:47: KASIA placed a call to Lizbeth at [facility] and informed her to cancel referral as pt will be staying at [facility] for rehab. Original Note: Social Work Note Pt is being discharged today. KASIA placed a call to Natalia with [facility] to confirm she is able to accept pt today. Natalia state she is unable to accept pt today as the person she thought was going to discharge on [facility] today is not discharging until tomorrow. Natalia asked this worker to ask physician if pt can stay one more night and go to tomorrow. KASIA updated NEWTON Coyle of this. NEWTON Coyle asked physician and physician states pt is ready for discharge and to find a different for facility for pt. SW in to update pt of this. Pt's granddaughter present in room. Pt gave this worker permission to speak to him in front of his guest. KASIA explained that is unable to accept pt today as there are no beds available. Pt states this is what happened to me last time and became upset. SW apologized to pt and states that per admission in , the bed that was supposed to become available is no longer available until tomorrow and physician is not willing to keep pt one more night. SW explained that pt is able to go to a different SNF in the community if pt is agreeable. Pt states that his next choice would be [facility]. SW explained this worker will send referral and will check on bed availability. KASIA placed a call to Lizbeth at [facility] and faxed referral. SW informed Lizbeth that pt would be ready for discharge today. KASIA updated Natalia with [facility] that physician is not willing to keep pt one more night. Natalia states that she will call physician. KASIA received call from Natalia who states physician is willing to keep pt one more night to discharge to tomorrow. SW in to update pt and pt's granddaughter that physician is willing to keep pt one more night to get to tomorrow. Pt and pt's granddaughter states understanding. RN and Charge Nurse updated on plan to discharge to tomorrow. Plan: [facility] tomorrow Shivani Watts DIVING FISHER, YARD HOSTLER
--- NOTE | 2018-12-12 11:53 | PCM.PROGNOTE ---
Patient Problems: Active and Suspected Problems (Last Reviewed 11/08/18 @ 14:38 by Felipe Harley MD) Hip fracture, left (Acute) Subjective: Pts primary complaint is that he is not getting what he wants to eat because he is on a cardiac salt controlled and carb controlled diet. He does have some pain this AM however it is improving. No N/V. No cough/SOB. He is able to ambulate a short distance. He is waiting for placement in the rehab unit. No BM yet. - Physical Exam General: Alert, Oriented x3, Cooperative HEENT: Atraumatic, PERRLA, EOMI, Normocephalic Neck: Supple, No JVD, Negative Carotid Bruits Lungs: Clear to auscultation, Normal air movement Cardiovascular: Regular rate, No murmurs Abdomen: Bowel Sounds Present, Soft, Non Tender, Obese Extremities: No edema, Capillary Refill Less than 3 Seconds Skin: No rashes, No breakdown Musculoskeletal: No Tenderness to Palpation of Joints or Extremities Neurological: Cranial nerves II-XII grossly intact Psych/Mental Status: Normal Affect, Appropriate, Alert and oriented to time, place, person, mood and affect Vital Signs Temp Pulse Resp BP Pulse Ox 97.4 F L 70 18 141/67 H 96 12/12/18 08:51 12/12/18 08:51 12/12/18 08:51 12/12/18 08:51 12/12/18 08:51 Oxygen Flow Rate (L/min) 2 Oxygen Delivery Method Room Air Weight: 297 lb 6.457 oz Body Mass Index (BMI) 38.2 Intake and Output for Last 24 Hours 12/10/18 12/11/18 12/12/18 23:59 23:59 23:59 Intake Total 1498 / 1498 1850 / 1850 Output Total 1075 / 1075 350 / 350 Balance 423 / 423 1500 / 1500 Medical Necessity - Tobacco Use Smoking Status: Never smoker Tobacco Use: Non-smoker Assessment/Plan All Active Problems (Last Reviewed 11/08/18 @ 14:38 by Felipe Harley MD) Hip fracture, left (Acute) Small bowel obstruction (Acute) Atrial fibrillation (Acute) 1. Acute fx of the left femoral neck -secondary to mechanical fall- POD#2. Pain improved with current regimen. -Aggressive bowel regimen with recent SBO. F/u Burtrum as o/p. -discussed the importance of maintaining good Bowel activity given #6. Offered suppository - declined. Declined MoM last night - encouraged using this and miralax daily until BM. 2. Paroxysmal Afib with recent RVR - now in NSR. Amiodarone, Coreg, Xarelto. 3. Hypertension -stable 4. History of rheumatoid arthritis-on Plaquenil, methotrexate. restart mobic at dc. 5. Obesity - dietary eval. Carb controlled diet added. I re-emphasized the importance of cardiac and carb controlled diet, and the need for weight control and improving his nutrition while 6. Recent small bowel obstruction-suture appears to be healing well, bowels are working normally. He will need to follow-up as an outpatient with Dr. Harley. 7. Macrocytic anemia - stable. Negative b12/folate. DVT prophylaxis: Shameka QUIROZ planning: Rehab unit tomorrow This patient was seen by Fidel Schrader PA-C under the supervision of Doctor Lopez
[2018-12-12 14:52] VITALS: BP 127/69; PULSE 62; RESP 18; TEMP 36.7; O2SAT 96
[2018-12-12 20:52] VITALS: BP 133/75; PULSE 72; RESP 16; TEMP 36.6; O2SAT 95
[2018-12-13 02:45] VITALS: BP 134/82; PULSE 62; RESP 18; TEMP 36.5; O2SAT 93
[2018-12-13] MEDS: Acetaminophen 500 MG Tablet 1000 MG PO ×2 (05:51→15:38)
[2018-12-13] MEDS: Nystatin Powder 15gm Bottle 1 APPLIC TOPICAL ×2 (05:52→15:38)
[2018-12-13 09:00] VITALS: BP 141/59; PULSE 76; RESP 18; TEMP 36.6; O2SAT 94
[2018-12-13] MEDS: Folic Acid 1 MG Tablet PO (09:44)
[2018-12-13] MEDS: Magnesium Oxide 400 MG Tablet PO (09:46)
[2018-12-13] MEDS: hydroCHLOROthiazide 25 MG Tablet PO (09:46)
[2018-12-13] MEDS: Losartan Potassium 100 MG Tablet PO (09:46)
[2018-12-13] MEDS: Calcium (Elemental) 500 MG Tablet 1000 MG PO (09:47)
[2018-12-13] MEDS: Docusate Sodium 100 MG Capsule PO (09:47)
[2018-12-13] MEDS: Hydroxychloroquine 200 MG Tablet PO (09:47)
[2018-12-13] MEDS: Amiodarone 200 MG Tablet PO (09:48)
[2018-12-13] MEDS: Polyethylene Glycol 3350 17 GM PACKET PO (09:48)
[2018-12-13] MEDS: Carvedilol 25 MG Tablet PO (09:48)
[2018-12-13] MEDS: oxyCODONE 5 MG Tablet 10 MG PO ×2 (09:56→15:38)
--- NOTE | 2018-12-13 13:08 | PCM.DC.SUM ---
Discharge Date and Diagnosis - Problem List Patient Problems: Active and Suspected Problems (Last Reviewed 11/08/18 @ 14:38 by Felipe Harley MD) Hip fracture, left (Acute) Date of Admission: 12/09/18 Date of Discharge: 12/13/18 - Primary Discharge Diagnosis Active and Suspected Problems (Last Reviewed 11/08/18 @ 14:38 by Felipe Harley MD) Acute fracture of the left femoral necks secondary to mechanical fall Recent admission with small bowel obstruction Paroxysmal atrial fibrillation with recent RVR Hypertension Rheumatoid arthritis Obesity Macrocytic anemia - Secondary Discharge Diagnosis Chronic Problems (Last Reviewed 11/08/18 @ 14:38 by Felipe Harley MD) Paroxysmal A-fib (Chronic) Obesity (Chronic) HTN (hypertension) (Chronic) Hospital Course and Treatment Imaging Results: CT/Brain/Head without Contrast IMPRESSION: No acute intracranial abnormalities. There is marked pansinusitis. RAD/HIP, UNI W/ Pelvis 2-3 Views IMPRESSION: Probable impacted nondisplaced subcapital fracture of the left hip. RAD/Chest 1 View (Portable) IMPRESSION: Question small left pleural effusion and atelectasis/infiltrate RAD/Hip Min 2 Views (Portable) IMPRESSION: Fluoroscopic findings as above. Consults: Audra - serge Operations: total hip replacement Procedures: None Summary of Care Provided: Hospital course: The patient is a 78 year old M with past medical history of hypertension, recently admitted with small bowel obstruction treated by Dr. Harley, paroxysmal atrial fibrillation with recent RVR, hypertension, obesity who presents to the emergency room with mechanical fall slipping on a wet floor. He was found to have an impacted nondisplaced subcapital fracture of the left hip. He is admitted to the medical surgical floor with Dr. Zhu on consult for orthopedics. As he was on Xarelto this was held. He underwent successful surgical repair. While he was also found to have significant hypomagnesemia and he was given oral replacement. He had some macrocytic anemia but his B12 and folate levels were normal. He was given aggressive bowel regimen as he had some postop constipation-he was able to have bowel movement with MiraLAX milk of magnesia. He had recent small bowel obstruction with admission and will need to follow-up with his surgeon after he is discharged. He will also need follow-up with orthopedics, and with his PCP in 1-2 weeks. He should follow up with his underwriting internship as previously directed. He was placed on a carb controlled diet given his obesity and orthopedic issues. He was discharged to the rehab unit in stable condition. This patient was seen by Fidel Schrader PA-C under the supervision of Doctor John. [] Patient Problems: Active and Suspected Problems (Last Reviewed 11/08/18 @ 14:38 by Felipe Harley MD) Hip fracture, left (Acute) - Physical Exam General: Alert, Oriented x3, Cooperative HEENT: Atraumatic, PERRLA, EOMI, Normocephalic Neck: Supple, No JVD, Negative Carotid Bruits Lungs: Clear to auscultation, Normal air movement Cardiovascular: Regular rate, No murmurs Abdomen: Bowel Sounds Present, Soft, Non Tender, Obese Extremities: No edema, Capillary Refill Less than 3 Seconds Skin: No rashes, No breakdown Musculoskeletal: No Tenderness to Palpation of Joints or Extremities Neurological: Cranial nerves II-XII grossly intact Psych/Mental Status: Normal Affect, Appropriate Vital Signs Temp Pulse Resp BP Pulse Ox 97.9 F 76 18 141/59 H 94 12/13/18 09:00 12/13/18 09:00 12/13/18 09:00 12/13/18 09:00 12/13/18 09:00 Oxygen Flow Rate (L/min) 2 Oxygen Delivery Method Room Air Weight: 297 lb 6.457 oz Body Mass Index (BMI) 38.2 Intake and Output for Last 24 Hours 12/11/18 12/12/18 12/13/18 23:59 23:59 23:59 Intake Total 1850 / 1850 Output Total 350 / 350 Balance 1500 / 1500 Discharge Diet: Low fat/ Low Cholesterol, 2000 mg Sodium Diet, Carb Control Diet Discharge Activity: Return to Normal Activity Weight Bearing Status: - - Weight bearing as directed by orthopedics Home Medications: Medications to take at Discharge Folic Acid 1 mg PO DAILY 11/07/18 Hydroxychloroquine [Plaquenil] 1 tab PO BID 11/07/18 Losartan/Hydrochlorothiazide [Losartan-Hctz 100-25 mg Tab] 1 tab PO DAILY 11/07/18 Meloxicam 7.5 mg PO BID 11/07/18 Methotrexate 8 tab PO QWEEK 11/07/18 Omeprazole 40 mg PO DAILY 11/07/18 Magnesium Oxide [Mag-Ox 400] 400 mg PO DAILYCM #30 tab 11/14/18 amiodarone 200 mg tablet 200 mg PO DAILY #90 tab 11/26/18 carvedilol 25 mg tablet 25 mg PO BID #180 tab 11/26/18 rivaroxaban 20 mg tablet 20 mg PO DAILY #90 tab 12/11/18 Acetaminophen [Tylenol] 1,000 mg PO Q8 tablet 12/12/18 Calcium (Elemental) [Os-Emmanuel 500] 1,000 mg PO DAILY@0800 tablet 12/12/18 Cholecalciferol (VIT D3) [Vitamin D3] 1,000 unit PO DAILY@0800 tablet 12/12/18 Docusate Sodium [Colace] 100 mg PO BID capsule 12/12/18 Magnesium Hydroxide [Milk Of Magnesia] 30 ml PO DAILY PRN PRN udc 12/12/18 Nystatin Powder [Mycostatin Powder] 1 applic TOPICAL TID bottle 12/12/18 Oxycodone [Oxyir] 10 mg PO Q4H PRN PRN 2 Days #24 tab 12/12/18 Polyethylene Glycol 3350 [Miralax] 17 gm PO DAILY packet 12/12/18 Following Prescrptions Were Given to Patient: Oxycodone [Oxyir] 10 mg PO Q4H PRN PRN 2 Days #24 tab PRN Reason: Moderate Pain (pain scale 4-5) Primary Care Physician: [facility] Doctor,Out of [Primary Care Provider] - Please follow up with your Primary Care Physician in: 2 weeks Please Follow Up With: Herminio Zhu MD When: 2 weeks Please Follow Up With: Felipe Harley MD When: 1-2 weeks Disposition: Acute care Hospital Minutes spent on discharge:: 35 Patient Condition:: Stable Medical Necessity - Tobacco Use Smoking Status: Never smoker Tobacco Use: Non-smoker Meaningful Use Info Meaningful Use Diagnoses (Choose all that apply): None applicable
--- NOTE | 2018-12-13 13:14 | DS.PCM_ITS ---
Discharge Date and Diagnosis - Problem List Patient Problems: Active and Suspected Problems (Last Reviewed 11/08/18 @ 14:38 by Felipe Harley MD) Hip fracture, left (Acute) Date of Admission: 12/09/18 Date of Discharge: 12/13/18 - Primary Discharge Diagnosis Active and Suspected Problems (Last Reviewed 11/08/18 @ 14:38 by Felipe Harley MD) Acute fracture of the left femoral necks secondary to mechanical fall Recent admission with small bowel obstruction Paroxysmal atrial fibrillation with recent RVR Hypertension Rheumatoid arthritis Obesity Macrocytic anemia - Secondary Discharge Diagnosis Chronic Problems (Last Reviewed 11/08/18 @ 14:38 by Felipe Harley MD) Paroxysmal A-fib (Chronic) Obesity (Chronic) HTN (hypertension) (Chronic) Hospital Course and Treatment Imaging Results: CT/Brain/Head without Contrast IMPRESSION: No acute intracranial abnormalities. There is marked pansinusitis. RAD/HIP, UNI W/ Pelvis 2-3 Views IMPRESSION: Probable impacted nondisplaced subcapital fracture of the left hip. RAD/Chest 1 View (Portable) IMPRESSION: Question small left pleural effusion and atelectasis/infiltrate RAD/Hip Min 2 Views (Portable) IMPRESSION: Fluoroscopic findings as above. Consults: Audra - serge Operations: total hip replacement Procedures: None Summary of Care Provided: Hospital course: The patient is a 78 year old M with past medical history of hypertension, recently admitted with small bowel obstruction treated by Dr. Harley, paroxysmal atrial fibrillation with recent RVR, hypertension, obesity who presents to the emergency room with mechanical fall slipping on a wet floor. He was found to have an impacted nondisplaced subcapital fracture of the left hip. He is admitted to the medical surgical floor with Dr. Zhu on consult for orthopedics. As he was on Xarelto this was held. He underwent successful surgical repair. While he was also found to have significant hypomagnesemia and he was given oral replacement. He had some macrocytic anemia but his B12 and folate levels were normal. He was given aggressive bowel regimen as he had some postop constipation-he was able to have bowel movement with MiraLAX milk of magnesia. He had recent small bowel obstruction with admission and will need to follow-up with his surgeon after he is discharged. He will also need follow-up with orthopedics, and with his PCP in 1-2 weeks. He should follow up with his belt back operator as previously directed. He was placed on a carb controlled diet given his obesity and orthopedic issues. He was discharged to the rehab unit in stable condition. This patient was seen by Fidel Schrader PA-C under the supervision of Doctor John. [] Patient Problems: Active and Suspected Problems (Last Reviewed 11/08/18 @ 14:38 by Felipe Harley MD) Hip fracture, left (Acute) - Physical Exam General: Alert, Oriented x3, Cooperative HEENT: Atraumatic, PERRLA, EOMI, Normocephalic Neck: Supple, No JVD, Negative Carotid Bruits Lungs: Clear to auscultation, Normal air movement Cardiovascular: Regular rate, No murmurs Abdomen: Bowel Sounds Present, Soft, Non Tender, Obese Extremities: No edema, Capillary Refill Less than 3 Seconds Skin: No rashes, No breakdown Musculoskeletal: No Tenderness to Palpation of Joints or Extremities Neurological: Cranial nerves II-XII grossly intact Psych/Mental Status: Normal Affect, Appropriate Vital Signs Temp Pulse Resp BP Pulse Ox 97.9 F 76 18 141/59 H 94 12/13/18 09:00 12/13/18 09:00 12/13/18 09:00 12/13/18 09:00 12/13/18 09:00 Oxygen Flow Rate (L/min) 2 Oxygen Delivery Method Room Air Weight: 297 lb 6.457 oz Body Mass Index (BMI) 38.2 Intake and Output for Last 24 Hours 12/11/18 12/12/18 12/13/18 23:59 23:59 23:59 Intake Total 1850 / 1850 Output Total 350 / 350 Balance 1500 / 1500 Discharge Diet: Low fat/ Low Cholesterol, 2000 mg Sodium Diet, Carb Control Diet Discharge Activity: Return to Normal Activity Weight Bearing Status: - - Weight bearing as directed by orthopedics Home Medications: Medications to take at Discharge Folic Acid 1 mg PO DAILY 11/07/18 Hydroxychloroquine [Plaquenil] 1 tab PO BID 11/07/18 Losartan/Hydrochlorothiazide [Losartan-Hctz 100-25 mg Tab] 1 tab PO DAILY 11/07/18 Meloxicam 7.5 mg PO BID 11/07/18 Methotrexate 8 tab PO QWEEK 11/07/18 Omeprazole 40 mg PO DAILY 11/07/18 Magnesium Oxide [Mag-Ox 400] 400 mg PO DAILYCM #30 tab 11/14/18 amiodarone 200 mg tablet 200 mg PO DAILY #90 tab 11/26/18 carvedilol 25 mg tablet 25 mg PO BID #180 tab 11/26/18 rivaroxaban 20 mg tablet 20 mg PO DAILY #90 tab 12/11/18 Acetaminophen [Tylenol] 1,000 mg PO Q8 tablet 12/12/18 Calcium (Elemental) [Os-Emmanuel 500] 1,000 mg PO DAILY@0800 tablet 12/12/18 Cholecalciferol (VIT D3) [Vitamin D3] 1,000 unit PO DAILY@0800 tablet 12/12/18 Docusate Sodium [Colace] 100 mg PO BID capsule 12/12/18 Magnesium Hydroxide [Milk Of Magnesia] 30 ml PO DAILY PRN PRN udc 12/12/18 Nystatin Powder [Mycostatin Powder] 1 applic TOPICAL TID bottle 12/12/18 Oxycodone [Oxyir] 10 mg PO Q4H PRN PRN 2 Days #24 tab 12/12/18 Polyethylene Glycol 3350 [Miralax] 17 gm PO DAILY packet 12/12/18 Following Prescrptions Were Given to Patient: Oxycodone [Oxyir] 10 mg PO Q4H PRN PRN 2 Days #24 tab PRN Reason: Moderate Pain (pain scale 4-5) Primary Care Physician: [facility] Doctor,Out of [Primary Care Provider] - Please follow up with your Primary Care Physician in: 2 weeks Please Follow Up With: Herminio Zhu MD When: 2 weeks Please Follow Up With: Felipe Harley MD When: 1-2 weeks Disposition: Acute care Hospital Minutes spent on discharge:: 35 Patient Condition:: Stable Medical Necessity - Tobacco Use Smoking Status: Never smoker Tobacco Use: Non-smoker Meaningful Use Info Meaningful Use Diagnoses (Choose all that apply): None applicable
[2018-12-13 15:00] VITALS: BP 146/69; PULSE 66; RESP 18; TEMP 36.7; O2SAT 97
== END 2018-12-13 16:30 | DRG 482 ==
LOC: ED 13:00 → MS3 16:05
PROVIDERS: Internal Medicine; Physician Assistant; Specialist; Admitting Provider Hospitalist; Emergency Provider Emergency Medicine; Referring Provider Hospitalist; Visit Provider Internal Medicine
PROC: 0QS734Z Reposition Left Upper Femur with Internal Fixation Device, Percutaneous Approach (ICD-10-PCS; principal; 2018-12-10 07:00)
DX: S72.012A Unspecified intracapsular fracture of left femur, initial encounter for closed fracture (principal); W01.0XXA Fall on same level from slipping, tripping and stumbling without subsequent striking against object, initial encounter; Y92.019 Unspecified place in single-family (private) house as the place of occurrence of the external cause; I10 Essential (primary) hypertension; Z96.641 Presence of right artificial hip joint; I48.0 Paroxysmal atrial fibrillation; E66.9 Obesity, unspecified; M06.9 Rheumatoid arthritis, unspecified; D53.9 Nutritional anemia, unspecified; E83.42 Hypomagnesemia; Z68.38 Body mass index [BMI] 38.0-38.9, adult; Z79.01 Long term (current) use of anticoagulants
CPT/HCPCS: 36415; 36416; 70450; 71045; 73502; 76000; 80048; 82607; 82746; 83735; 85025; 85610; 85730; 86850; 86900; 93005; 94667; 97163; 97166; 97530; 99251; 99285; C1713; J7030; A4216; G0463; J2405

== ENCOUNTER 2018-12-13 16:46 | Inpatient (IN) | payer MEDICARE, BC, SELFPAY ==
[2018-12-10 13:41] VITALS: BMI 38.2
[2018-12-13 16:52] VITALS: BP 152/82; PULSE 80; RESP 17; TEMP 36.8; O2SAT 96; BMI 37.6
--- NOTE | 2018-12-13 18:10 | NURSING ---
Pleasant, admitted to rehab and aware he is a fall risk and must ask for staff assist.
[2018-12-13] MEDS: Rivaroxaban 20 MG Tablet PO (18:53)
[2018-12-13 19:27] VITALS: O2SAT 91
[2018-12-13 19:49] VITALS: BP 131/68; PULSE 75; RESP 18; TEMP 36.6; O2SAT 93
[2018-12-13] MEDS: Nystatin Powder 15gm Bottle 1 APPLIC TOPICAL (20:41)
[2018-12-13] MEDS: Senna/Docusate Sodium 1 Tablet 2 TABLET PO (20:41)
[2018-12-13] MEDS: Meloxicam 7.5 MG Tablet PO (20:42)
[2018-12-13] MEDS: Carvedilol 25 MG Tablet PO (20:42)
[2018-12-13] MEDS: Acetaminophen 500 MG Tablet 1000 MG PO (20:42)
[2018-12-13] MEDS: oxyCODONE 5 MG Tablet 10 MG PO (20:50)
[2018-12-14] MEDS: Nystatin Powder 15gm Bottle 1 APPLIC TOPICAL ×3 (05:13→20:11)
[2018-12-14] MEDS: Acetaminophen 500 MG Tablet 1000 MG PO ×3 (05:13→20:09)
[2018-12-14 06:00] LABS: Absolute Lymphocyte Count 1.64 X10^3/ul (0.83-4.51); Absolute Neutrophil Count 4.1 X10^3/uL (2.0-7.7); Basophil# 0.04 X10^3/uL; Basophil% 0.6 % (0-1); Eosinophil# 0.44 X10^3/uL; Eosinophils% 6.1 % (0-5); Lymphocyte # 1.64 X10^3/ul (4.0); Lymphocyte % 22.6 % (19-41); Mean Corp Hgb Conc 31.4 g/gl (32-36); Mean Corpuscular Volume 105.1 fL (80-94); Mean Platelet Vol. 9.3 fl (6.2-12.0); Monocyte# 1.01 X10^3/uL; Monocyte% 13.9 % (0-10); Neutrophil % 56.5 % (47-70); Platelet Count 290 K/mm3 (150-450); RBC Distribution Width CV 13.2 % (11.6-14.6); RBC Distribution Width SD 48.8 fl (35.1-43.9); Red Blood Count 3.33 M/mm3 (4.6-6.2); White Blood Count 7.3 K/mm3 (4.4-11.0)
[2018-12-14 06:03] LABS: POSITIVE COUNT NO; POSITIVE DIFFERENTIAL NO; POSITIVE MORPHOLOGY NO
[2018-12-14 06:11] LABS: ALB/GLOB Ratio 0.7 RATIO (0.9-2.4); AST(SGOT) 14 U/L (15-37); Alanine Aminotransfer ALT/SGPT 19 U/L (16-61); Albumin, Serum 2.4 g/dL (3.2-5.0); Alkaline Phosphatase 45 U/L (45-117); Anion Gap 8 (5-15); BUN 23 mg/dL (7-18); BUN/Creat Ratio 22.3 RATIO (10-20); Calcium,Total 8.3 mg/dL (8.5-10.1); Chloride 103 mmol/L (98-107); Creatinine, Serum 1.03 mg/dL (0.70-1.30); EST Glomerular Filtration Rate 74 mL/min (>60); Est Glom Filt Rate - Afr Amer 90 mL/min (>60); Estimated Creatinine Clearance 68.72 ml/min; Globulin 3.5 g/dL (2.2-4.2); Glucose 113 mg/dL (74-106); Potassium 4.3 mmol/L (3.5-5.1); Protein, Total 5.9 g/dL (6.4-8.2); Sodium Level 142 mmol/L (136-145)
[2018-12-14 07:00] VITALS: BP 130/56; PULSE 76; RESP 17; TEMP 36.6; O2SAT 95
[2018-12-14] MEDS: oxyCODONE 5 MG Tablet 10 MG PO ×3 (07:02→20:11)
[2018-12-14] MEDS: Meloxicam 7.5 MG Tablet PO ×2 (08:30→20:10)
[2018-12-14] MEDS: Polyethylene Glycol 3350 17 GM PACKET PO (08:30)
[2018-12-14] MEDS: Senna/Docusate Sodium 1 Tablet 2 TABLET PO ×2 (08:30→20:10)
[2018-12-14] MEDS: Pantoprazole Sodium 40 MG Tablet PO (08:30)
[2018-12-14] MEDS: Losartan Potassium 100 MG Tablet PO (08:30)
[2018-12-14] MEDS: hydroCHLOROthiazide 25 MG Tablet PO (08:30)
[2018-12-14] MEDS: Amiodarone 200 MG Tablet PO (08:34)
[2018-12-14] MEDS: Hydroxychloroquine 200 MG Tablet PO ×2 (08:34→16:30)
[2018-12-14] MEDS: Carvedilol 25 MG Tablet PO ×2 (08:35→20:11)
[2018-12-14] MEDS: Folic Acid 1 MG Tablet PO (08:35)
[2018-12-14] MEDS: Magnesium Oxide 400 MG Tablet PO (08:35)
[2018-12-14] MEDS: Calcium (Elemental) 500 MG Tablet 1000 MG PO (11:19)
--- NOTE | 2018-12-14 11:46 | PCM.HP.STD ---
Problem List (1) Debility Status: Acute (2) Fall Status: Acute (3) Paroxysmal A-fib Status: Chronic (4) Hip fracture, left Status: Acute (5) Obesity Status: Chronic (6) Small bowel obstruction Status: Acute (7) Atrial fibrillation Status: Acute Qualifiers: (8) HTN (hypertension) Status: Chronic Qualifiers: (9) Rheumatoid arthritis Status: Chronic History of Present Illness Date of Admission: 12/13/18 Chief Complaint: Debility s/p fall The patient is a 78 year old M with PMH of HTN, RA, new onset A. fib (on Xarelto), recent admission for small bowel obstruction admitted to [facility] inpatient rehab unit on 12/13/2018 with debility S/P mechanical fall, found to have impacted nondisplaced subcapital fracture of left hip and is S/P closed reduction with pinning of left hip by Dr. Zhu on 12/10/2018, for greater than 3 hours therapy daily with the aim of returning back home at or near his prior level of functional independence. Per patient he had a mechanical fall at home while walking with his cane. He lives with his , uses cane and a Rollator to ambulate, denies any frequent falls, does drive and does not need any assistance for his ADLs. He lives in a [place] house, and has 2-3 steps going into the house. Per patient he has a history of RA and is on methotrexate 2.5 mg 8 tablets once weekly for the same. At present patient denies any new onset of headache, dizziness, visual disturbances, speech disturbances, new onset focal motor weakness or sensory loss. Past Medical History Past Medical History (Chronic Problems): Chronic Problems (Last Reviewed 11/08/18 @ 14:38 by Felipe Harley MD) Paroxysmal A-fib (Chronic) Obesity (Chronic) Rheumatoid arthritis (Chronic) HTN (hypertension) (Chronic) Medical History: Medical History (Last Reviewed 11/08/18 @ 14:38 by Felipe Harley MD) Rheumatoid arthritis M06.9 HTN (hypertension) I10 Allergies Penicillins Allergy (Severe, Verified 12/09/18 11:58) rash Home Medications: Ambulatory Orders Medication Instructions Recorded Folic Acid 1 mg PO DAILY 11/07/18 Hydroxychloroquine [Plaquenil] 200 mg PO BID 11/07/18 Losartan/Hydrochlorothiazide 1 tab PO DAILY 11/07/18 [Losartan-Hctz 100-25 mg Tab] Meloxicam 7.5 mg PO BID 11/07/18 Methotrexate 8 tab PO MO 11/07/18 Omeprazole 40 mg PO DAILY 11/07/18 Acetaminophen [Tylenol] 1,000 mg PO Q8 12/13/18 Amiodarone HCl [Cordarone] 200 mg PO DAILY 12/13/18 Calcium (Elemental) [Os-Emmanuel 500] 1,000 mg PO DAILY@0800 12/13/18 Carvedilol [Coreg (Beta Tressa)] 25 mg PO BID 12/13/18 Cholecalciferol (VIT D3) [Vitamin 2,000 unit PO DAILY@0800 12/13/18 D3] Magnesium Oxide [Mag-Ox 400] 400 mg PO DAILYCM 12/13/18 Nystatin Powder [Mycostatin Powder] 1 applic TOPICAL TID 12/13/18 Polyethylene Glycol 3350 [Miralax] 17 gm PO DAILY 12/13/18 Rivaroxaban [Xarelto] 20 mg PO DAILY 12/13/18 Surgical History: Surgical History (Last Updated 11/26/18 @ 11:13 by Silvana Millan) History of bowel resection Onset Date: 11/08/18 Z98.890, Z90.49 History of carpal tunnel release of both wrists Z98.890 History of cholecystectomy Z90.49 History of right hip replacement Z96.641 partial History of rotator cuff surgery Z98.890 left Status post trigger finger release Z98.890 right hand Status post wrist surgery Z98.890 left Surgical History: cholecystectomy, - - Left hip replacement; facial surgery for cancer; plate placed in left forearm; and left rotator cuff surgery; Psychiatric History: No pertinent psych hx Lives: Spouse/ Significant Other Smoking Status: Never smoker Alcohol: None Drugs: None - *Family History Maternal Family History: Family History (Last Reviewed 11/26/18 @ 11:13 by Silvana Millan) Mother Pancreatic cancer Father Heart problem Sister Breast cancer History Items: Cancer - pancreatic Review of Systems Constitutional: Reports: - - Complete ROS negative except as documented in HPI VTE Information - Inpt Only VTE Present on Admission: No VTE Mechan Device Prophylaxis: SCD's, Knee High TIMOTHY Hose VTE Pharm Prophylaxis ordered?: Yes Patient Problems: Active and Suspected Problems (Last Reviewed 11/08/18 @ 14:38 by Felipe Harley MD) Debility (Acute) Fall (Acute) - Physical Exam General: Alert HEENT: Normocephalic Neck: Supple Lungs: Normal air movement Cardiovascular: Normal S1, Normal S2 Abdomen: Bowel Sounds Present Extremities: No cyanosis Neurological: Cranial nerves II-XII grossly intact, Deep Tendon Reflexes 2+/4 and Symmetrical, Neuro grossly intact, Motor Exam 5/5 strength throughout, Muscle tone normal, Sensory exam intact to light touch and pain, Coordination normal Psych/Mental Status: Normal Affect Vital Signs Temp Pulse Resp BP Pulse Ox 97.8 F 76 17 130/56 H 95 12/14/18 07:00 12/14/18 07:00 12/14/18 07:00 12/14/18 07:00 12/14/18 07:00 Oxygen Delivery Method Room Air Weight: 133 kg Body Mass Index (BMI) 37.6 Intake and Output for Last 24 Hours 12/12/18 12/13/18 12/14/18 23:59 23:59 23:59 Intake Total 360 / 360 Output Total 200 / 200 Balance 160 / 160 Laboratory Tests Past 24 Hrs 12/14/18 12/14/18 05:30 05:30 WBC 7.3 RBC 3.33 L Hgb 11.0 L Hct 35.0 L MCV 105.1 H MCH 33.0 H MCHC 31.4 L RDW 13.2 RDW Differential 48.8 H Plt Count 290 MPV 9.3 Immature Gran % (Auto) 0.300 Neut % (Auto) 56.5 Lymph % (Auto) 22.6 [place] % (Auto) 13.9 H Eos % (Auto) 6.1 H Baso % (Auto) 0.6 Absolute Neuts (auto) 4.1 Absolute Lymphs (auto) 1.64 Total Counted Not Reportable Sodium 142 Potassium 4.3 Chloride 103 Carbon Dioxide 31.0 Anion Gap 8 BUN 23 H Creatinine 1.03 Estim Creat Clear Calc 68.72 Est GFR (MDRD) Af Amer 90 Est GFR (MDRD) Non-Af 74 BUN/Creatinine Ratio 22.3 H Glucose 113 H Calcium 8.3 L Total Bilirubin 0.40 AST 14 L ALT 19 Alkaline Phosphatase 45 Total Protein 5.9 L Albumin 2.4 L Globulin 3.5 Albumin/Globulin Ratio 0.7 L Assessment/Plan All Active Problems (Last Reviewed 11/08/18 @ 14:38 by Felipe Harley MD) Hip fracture, left (Acute) Debility (Acute) Fall (Acute) Small bowel obstruction (Acute) Atrial fibrillation (Acute) The patient is a 78 year old M with PMH of HTN, RA, new onset A. fib (on Xarelto), recent admission for small bowel obstruction admitted to [facility] inpatient rehab unit on 12/13/2018 with debility S/P mechanical fall, found to have impacted nondisplaced subcapital fracture of left hip and is S/P closed reduction with pinning of left hip by Dr. Zhu on 12/10/2018, for greater than 3 hours therapy daily with the aim of returning back home at or near his prior level of functional independence. Per patient he had a mechanical fall at home while walking with his cane. He lives with his , uses cane and a Rollator to ambulate, denies any frequent falls, does drive and does not need any assistance for his ADLs. He lives in a ranch house, and has 2-3 steps going into the house. Per patient he has a history of RA and is on methotrexate 2.5 mg 8 tablets once weekly for the same. At present patient denies any new onset of headache, dizziness, visual disturbances, speech disturbances, new onset focal motor weakness or sensory loss. Plan ?PT for gait stability and balance ?OT for ADLs ?Analgesics as needed ?Bowel protocol ?Left left hip fracture, S/P closed reduction with pinning of the left hip by Dr. Zhu on 12/10/2018?per surgery recommendation partial weightbearing. Further management of left hip fracture per orthopedic surgery recommendation. Further postsurgical management of left hip fracture per orthopedic surgery recommendation. ?HTN?Coreg 25 mg p.o. twice daily, hydrochlorthiazide 25 mg daily, losartan 100 mg p.o. daily ?A. fib?on amiodarone and Xarelto 20 mg once daily ?RA?on methotrexate 2.5 mg p.o. 8 tablets once a week, on folic acid and on Plaquenil 200 mg p.o. twice daily ?GI/DVT prophylaxis?on pantoprazole and Xarelto 20 mg p.o. once daily ?Fall precautions ?Further medical management per hospitalist recommendation. Hospitalist consult ?Follow-up with PCP and orthopedic surgeon as an outpatient following discharge.
--- NOTE | 2018-12-14 12:00 | REHABEVAL_ITS ---
Admission Information Status Changes from Prescreening?: No changes Identified Actual Problem List:: Falls, Mobility Impaired, Self Care Deficit, BP, Hypertension Potential Problem List:: DVT, Bleeding, Infection, UTI, Aspiration, Falls, Skin Integrity, Depression Risk of Complications DVT: LMWH, TIMOTHY Hose, Sequential Compression Device Bleeding: Monitor Lab Values, Nursing to Teach Precautions for anti-coagulation therapy., Wound, if applicable, to be assessed every shift., Stroke patients assessed for lethargy or change in status. Infection: Clinical Staff to Monitor for S/S of infection:, S/S of infection include fever, redness, warmth, etc. Urinary Tract Infection: Monitor for frequency, burning, discomfort, or incontinence., Nursing will obtain urine sample for urinalysis and C&S when ordered. Aspiration: Clinical staff will monitor for coughing, drooling, congestion., Speech will evaluate swallowing and dsyphasia., Nursing will monitor patient swallowing during meals. Falls: Patient will be evaluated for Fall Precautions, Patient will be placed on Fall Precautions as indicated per protocol. Skin Breakdown: Nursing will assess skin daily using assessment tool., Nursing will place on Skin Breakdown Precautions as indicated. Pain: Clinical staff will assess patient's pain level per protocol., Medications will be given, if needed, and the pain level reassessed., Other methods: Massage, distraction, decrease stimulus, etc. used PRN. Plan of Care Patient requires physician specializing in physical medicine and rehab oversight to provide close medical supervision of rehab issues including: Pain Management, Sleep Problems, Bowel and Bladder, Medical and co-morbidity Management, DVT prophylaxis, Rehabilitation Leadership, Coordination of treatment team Patient needs Physical Therapy: For a minimum of 1 hour, At least 5 out of 7 days Patient needs Physical Therapy to improve:: Mobility, Mobility, Mobility, Strengthening, Transfers, Stretching, ROM, Endurance, Stairs, Gait, Balance Patient needs Occupational Therapy: For a minimum of 1 hour, At least 5 out of 7 days Patient needs Occupational Therapy to improve ADL's incl.: Eating, Grooming, Bathing, Dressing, Toileting, Toilet transfers, Community Reintegration, Higher functioning activities, Household tasks, Adaptive Equipment, Splinting, Other activities as determined Patient requires 24/ Rehabilitation Nursing for: Pain Issues, Identifying and preventing risk factors, Monitoring and reporting current medical conditions, Assisting with ambulation, transfer, and all ADL's, Teaching patients about disease process and medications, Family teaching, Providing safe environment, Bowel and Bladder Issues, Skin integrity, Medication Management Patient needs Perforator Typist/ Case Management for: Discharge Planning, Arranging Home Equipment or Services, Family Interventions Patient needs Dietary and Nutrition Services for: Adequate Nutrition, Nutritional Supplements, Nutritional Education Goals Patient will remain: free from falls, or injury at time of discharge. Patient will perform bed mobility at: MOD I level of assist. Patient will complete transfers from bed to chair at: MOD I level of assist. Patient will ambulate: 100 feet, with MOD I assist, with LRD Patient will complete upper body dressing at: MOD I level of assist. Patient will complete lower body dressing at: MOD I level of assist. Patient will complete toileting at: MOD I level of assist. Patient will perform bathing at: MOD I level of assist. Patient will complete grooming at: MOD I level of assist. Patient will complete home management skills at: MOD I level of assist. Patient will achieve: 12 stairs, at MOD I assist Patient will have pain level of: of 3 or less Patient's skin will: remain intact, free from infection. Patient will receive: adequate nutrition. Discharge Planning Pt Prognosis for Sig. Practical Improv. w/in Reasonable Time: Good Estimated Length of stay (days): 16 Anticipated D/C Destination: Home Was Preadmission Assessment Accurate?: Yes
[2018-12-14 15:29] VITALS: O2SAT 93
[2018-12-14] MEDS: Rivaroxaban 20 MG Tablet PO (16:30)
--- NOTE | 2018-12-14 19:05 | NURSING ---
PRESCHOOL SUBSTITUTE TEACHER reports pt was getting up from elevated toilet seat. Arm rest gave out forcing pt to resume sitting position on toilet. ABD dressing with mod amt of ss drainage taken off by Moni GLEZ. New DSD applied. Pt c/o severe pain in left hip. Patient past due for pain meds. Will reassess and continue to monitor.
[2018-12-14 20:14] VITALS: BP 130/68; PULSE 73; RESP 18; TEMP 36.4; O2SAT 93
--- NOTE | 2018-12-14 20:15 | NURSING ---
Left hip dressing changed, Weld intact, well approximated. Minimal ss drainage on dressing. Cleansed with NS, new DSD applied with paper tape. Nonpitting edema present. C/O pain 10/10 in hip. Medicated with oxyir and tylenol.
--- NOTE | 2018-12-14 20:55 | NURSING ---
Now sleeping, resp easy and reg.
[2018-12-15] MEDS: oxyCODONE 5 MG Tablet 10 MG PO ×4 (03:32→20:27)
[2018-12-15] MEDS: Acetaminophen 500 MG Tablet 1000 MG PO ×3 (05:30→20:27)
[2018-12-15] MEDS: Nystatin Powder 15gm Bottle 1 APPLIC TOPICAL ×3 (05:31→20:28)
--- NOTE | 2018-12-15 06:30 | NURSING ---
Dressing with moderate amt ss drainage. Cleansed with NS, applied DSD with blue tape. Nonpitting edema remains. Pt states left hip pain is so much better. Slept most of night.
[2018-12-15 07:00] VITALS: O2SAT 90
[2018-12-15 10:00] VITALS: BP 137/62; PULSE 73; RESP 16; TEMP 36.3; O2SAT 93
[2018-12-15] MEDS: Hydroxychloroquine 200 MG Tablet PO ×2 (11:05→17:20)
[2018-12-15] MEDS: hydroCHLOROthiazide 25 MG Tablet PO (11:05)
[2018-12-15] MEDS: Losartan Potassium 100 MG Tablet PO (11:05)
[2018-12-15] MEDS: Pantoprazole Sodium 40 MG Tablet PO (11:05)
[2018-12-15] MEDS: Amiodarone 200 MG Tablet PO (11:05)
[2018-12-15] MEDS: Carvedilol 25 MG Tablet PO ×2 (11:06→20:28)
[2018-12-15] MEDS: Folic Acid 1 MG Tablet PO (11:06)
[2018-12-15] MEDS: Calcium (Elemental) 500 MG Tablet 1000 MG PO (11:06)
[2018-12-15] MEDS: Magnesium Oxide 400 MG Tablet PO (11:06)
[2018-12-15] MEDS: Senna/Docusate Sodium 1 Tablet 2 TABLET PO ×2 (11:06→20:28)
[2018-12-15] MEDS: Polyethylene Glycol 3350 17 GM PACKET PO (11:07)
[2018-12-15] MEDS: Meloxicam 7.5 MG Tablet PO ×2 (11:11→20:28)
[2018-12-15] MEDS: Rivaroxaban 20 MG Tablet PO (17:20)
[2018-12-15 20:22] VITALS: BP 108/53; PULSE 70; RESP 16; TEMP 36.8; O2SAT 92
[2018-12-16] MEDS: oxyCODONE 5 MG Tablet 10 MG PO ×4 (01:12→18:19)
[2018-12-16] MEDS: Acetaminophen 500 MG Tablet 1000 MG PO ×3 (06:13→21:32)
[2018-12-16] MEDS: Nystatin Powder 15gm Bottle 1 APPLIC TOPICAL ×3 (06:14→21:31)
--- NOTE | 2018-12-16 06:47 | NURSING ---
Left hip dressing changed at HS - mod amt ss drainage. This am dressing remains dry and intact
[2018-12-16 06:53] VITALS: O2SAT 92
[2018-12-16 07:45] VITALS: BP 114/70; PULSE 63; RESP 17; TEMP 36.3; O2SAT 93
[2018-12-16] MEDS: Polyethylene Glycol 3350 17 GM PACKET PO (08:00)
[2018-12-16] MEDS: Meloxicam 7.5 MG Tablet PO ×2 (08:00→21:32)
[2018-12-16] MEDS: Pantoprazole Sodium 40 MG Tablet PO (08:01)
[2018-12-16] MEDS: Senna/Docusate Sodium 1 Tablet 2 TABLET PO ×2 (08:01→21:32)
[2018-12-16] MEDS: Amiodarone 200 MG Tablet PO (08:01)
[2018-12-16] MEDS: Hydroxychloroquine 200 MG Tablet PO ×2 (08:01→17:52)
[2018-12-16] MEDS: Losartan Potassium 100 MG Tablet PO (08:01)
[2018-12-16] MEDS: hydroCHLOROthiazide 25 MG Tablet PO (08:01)
[2018-12-16] MEDS: Calcium (Elemental) 500 MG Tablet 1000 MG PO (08:01)
[2018-12-16] MEDS: Carvedilol 25 MG Tablet PO ×2 (08:02→21:32)
[2018-12-16] MEDS: Magnesium Oxide 400 MG Tablet PO (08:02)
[2018-12-16] MEDS: Folic Acid 1 MG Tablet PO (08:02)
--- NOTE | 2018-12-16 15:02 | PCM.PROGNOTE ---
Patient Problems: Active and Suspected Problems (Last Reviewed 11/08/18 @ 14:38 by Felipe Harley MD) Debility (Acute) Fall (Acute) Subjective: Patient seen and examined. Denies current complaints. Denies significant pain. PT/OT going well. States bedside commode handle broke while using restroom and he fell back onto toilet on left side/hip. Increased bruising. - Physical Exam General: Alert, Oriented x3, Cooperative HEENT: Atraumatic, PERRLA, EOMI, Normocephalic Neck: Supple, No JVD, Negative Carotid Bruits Lungs: Clear to auscultation, Normal air movement Cardiovascular: Regular rate, Regular Rhythm, Normal S1, Normal S2, No murmurs Abdomen: Bowel Sounds Present, Soft, Non Tender, Non-Distended Extremities: No clubbing, No cyanosis, No edema, Capillary Refill Less than 3 Seconds Skin: No rashes, No breakdown, - - Left hip post-op without signs of infection. Mild sanguinous drainage. Dressing changed. Significant bruising with area of swelling. Musculoskeletal: No Tenderness to Palpation of Joints or Extremities Neurological: Cranial nerves II-XII grossly intact, Neuro grossly intact Psych/Mental Status: Normal Affect, Appropriate Vital Signs Temp Pulse Resp BP Pulse Ox 97.3 F L 63 17 114/70 93 12/16/18 07:45 12/16/18 07:45 12/16/18 07:45 12/16/18 07:45 12/16/18 07:45 Oxygen Delivery Method Room Air Weight: 293 lb 3.437 oz Body Mass Index (BMI) 37.6 Intake and Output for Last 24 Hours 12/14/18 12/15/18 12/16/18 23:59 23:59 23:59 Intake Total 690 / 690 Output Total 200 / 200 Balance 490 / 490 Medical Necessity - Tobacco Use Smoking Status: Never smoker Assessment/Plan All Active Problems (Last Reviewed 11/08/18 @ 14:38 by Felipe Harley MD) Hip fracture, left (Acute) Debility (Acute) Fall (Acute) Small bowel obstruction (Acute) Atrial fibrillation (Acute) 1. Debility s/p recent left hip fx s/p surgical repair with closed reduction with pinning of left hip 12/10/18- PT/OT. Management per rehab team. Ask ortho to see patient tomorrow given recent fall on commode on left side with increase bruising/swelling. 2. Hypertension-stable, continue amiodarone, carvedilol, HCTZ/Losartan. 3. Paroxysmal Atrial Fibrillation-stable, continue carvedilol, amiodarone, Xarelto. 4. History of small bowel obstruction 5. Rheumatoid arthritis- Continue methotrexate/plaquenil regimen. 6. GERD- continue PPI. 7. Obesity- encourage diet and lifestyle modifications. DVT Prophylaxis-xarelto. This patient was seen by JUANA Greco under the supervision of Dr. Hastings.
--- NOTE | 2018-12-16 15:40 | NURSING ---
Dr. Hastings came saw pt for Dr. Lopez, Dr. Hastings concerned about increased bruising and edema to L. hip incision site. Wanted this RN to make Dr. Zhu aware, called oncall ortho Dr. Colon returned call stated we could make Dr. Zhu aware first thing in morning.
[2018-12-16] MEDS: Rivaroxaban 20 MG Tablet PO (17:51)
--- NOTE | 2018-12-16 21:00 | NURSING ---
Left hip pain 11/22. Dressing dry and intact. Nonpitting edema present, no increase noted from previous assessments by this RN
[2018-12-16 21:29] VITALS: BP 122/74; PULSE 74; RESP 16; TEMP 36.6; O2SAT 92
--- NOTE | 2018-12-16 21:36 | NURSING ---
O2 sats 90-91%. O2 applied at 2L Resulting sats 94$ after one minute. I&S encouraged. Lungs CTA. Resp easy and reg
[2018-12-17] MEDS: oxyCODONE 5 MG Tablet 10 MG PO ×5 (03:23→22:51)
[2018-12-17] MEDS: Acetaminophen 500 MG Tablet 1000 MG PO ×3 (05:36→20:39)
[2018-12-17] MEDS: Nystatin Powder 15gm Bottle 1 APPLIC TOPICAL ×3 (05:37→20:39)
[2018-12-17 06:27] VITALS: O2SAT 93
[2018-12-17 07:09] VITALS: BP 134/66; PULSE 68; RESP 16; TEMP 36.4; O2SAT 91
[2018-12-17] MEDS: Magnesium Oxide 400 MG Tablet PO (07:49)
[2018-12-17] MEDS: Folic Acid 1 MG Tablet PO (07:49)
[2018-12-17] MEDS: Methotrexate 2.5 MG Tablet 20 MG PO (07:50)
[2018-12-17] MEDS: Calcium (Elemental) 500 MG Tablet 1000 MG PO (07:50)
[2018-12-17] MEDS: Amiodarone 200 MG Tablet PO (07:51)
[2018-12-17] MEDS: Hydroxychloroquine 200 MG Tablet PO ×2 (07:51→17:23)
[2018-12-17] MEDS: Carvedilol 25 MG Tablet PO ×2 (07:52→20:38)
[2018-12-17] MEDS: Losartan Potassium 100 MG Tablet PO (07:52)
[2018-12-17] MEDS: Meloxicam 7.5 MG Tablet PO ×2 (07:52→20:39)
[2018-12-17] MEDS: hydroCHLOROthiazide 25 MG Tablet PO (07:52)
[2018-12-17] MEDS: Polyethylene Glycol 3350 17 GM PACKET PO (07:52)
[2018-12-17] MEDS: Pantoprazole Sodium 40 MG Tablet PO (07:53)
[2018-12-17] MEDS: Senna/Docusate Sodium 1 Tablet 2 TABLET PO (07:53)
--- NOTE | 2018-12-17 10:29 | RAD_ITS ---
HISTORY: Left hip fracture COMPARISON: 12/10/2018 FINDINGS: XR pelvis with left hip 4 views Generalized bony demineralization consistent with the patient's age. Left hip stable postoperative change. Subcapital fracture of the left femoral neck status post left hip nailing with [address] The pins appear in satisfactory position and without change. Normal bony position and alignment. The left femoral acetabular joint space appears preserved. Right total hip prosthesis in place. No dislocation or acute fracture. 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 RAD/HIP, UNI W/ Pelvis 2-3 Views IMPRESSION: Left hip nailing, stable. No acute disease. 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 at [id number] Reported and signed by: Blair Carey MD Electronically Signed: Blair Carey, at 3:45 EST Tel , Service support ,
--- NOTE | 2018-12-17 11:31 | PN.NEURO_ITS ---
Patient Problems: Active and Suspected Problems (Last Reviewed 11/08/18 @ 14:38 by Felipe Harley MD) Debility (Acute) Fall (Acute) Subjective: Care discussed with the nursing staff. Per documentation and per patient over the weekend when he was trying to use the commode, left handle broke and he fell back on the commode onto the left side of the hip and following that he had some ecchymosis as well as edema around the left hip region along with some serous drainage , at present the incision is intact with puja. At present per patient he feels much better than before from pain perspective. - Physical Exam General: Alert HEENT: Normocephalic Neck: Supple Lungs: Normal air movement Cardiovascular: Normal S1, Normal S2 Abdomen: Bowel Sounds Present Extremities: No cyanosis Neurological: Cranial nerves II-XII grossly intact, Deep Tendon Reflexes 2+/4 and Symmetrical, Neuro grossly intact, Motor Exam 5/5 strength throughout, Muscle tone normal, Sensory exam intact to light touch and pain, Coordination normal Psych/Mental Status: Normal Affect Vital Signs Temp Pulse Resp BP Pulse Ox 97.6 F L 68 16 134/66 H 91 12/17/18 07:09 12/17/18 07:09 12/17/18 07:09 12/17/18 07:09 12/17/18 07:09 Oxygen Delivery Method Room Air Weight: 133 kg Body Mass Index (BMI) 37.6 Intake and Output for Last 24 Hours 12/15/18 12/16/18 12/17/18 23:59 23:59 23:59 Intake Total 720 / 720 Balance 720 / 720 Medical Necessity - Tobacco Use Smoking Status: Never smoker Assessment/Plan All Active Problems (Last Reviewed 11/08/18 @ 14:38 by Felipe Harley MD) Hip fracture, left (Acute) Debility (Acute) Fall (Acute) Small bowel obstruction (Acute) Atrial fibrillation (Acute) The patient is a 78 year old M with PMH of HTN, RA, new onset A. fib (on Xarelto), recent admission for small bowel obstruction admitted to [facility] inpatient rehab unit on 12/13/2018 with debility S/P mechanical fall, found to have impacted nondisplaced subcapital fracture of left hip and is S/P closed reduction with pinning of left hip by Dr. Zhu on 12/10/2018, for greater than 3 hours therapy daily with the aim of returning back home at or near his prior level of functional independence. Per patient he had a mechanical fall at home while walking with his cane. He lives with his , uses cane and a Rollator to ambulate, denies any frequent falls, does drive and does not need any assistance for his ADLs. He lives in [place], and has 2-3 steps going into the house. Per patient he has a history of RA and is on methotrexate 2.5 mg 8 tablets once weekly for the same. At present patient denies any new onset of headache, dizziness, visual disturbances, speech disturbances, new onset focal motor weakness or sensory loss. Plan ?PT for gait stability and balance ?OT for ADLs ?Analgesics as needed ?Bowel protocol ?Check a repeat x-ray of left hip as over the weekend patient is back on the commode while using the same, following which he had some ecchymosis around the left hip. Per nursing staff over the weekend Dr. Colon's office was notified but will again notify orthopedic surgery Dr. Zhu's office following x-ray hip. ?Left left hip fracture, S/P closed reduction with pinning of the left hip by Dr. Zhu on 12/10/2018?per surgery recommendation partial weightbearing. Further management of left hip fracture per orthopedic surgery recommendation. Further postsurgical management of left hip fracture per orthopedic surgery recommendation. ?HTN?Coreg 25 mg p.o. twice daily, hydrochlorthiazide 25 mg daily, losartan 100 mg p.o. daily ?A. fib?on amiodarone and Xarelto 20 mg once daily ?RA?on methotrexate 2.5 mg p.o. 8 tablets once a week, on folic acid and on Plaquenil 200 mg p.o. twice daily ?GI/DVT prophylaxis?on pantoprazole and Xarelto 20 mg p.o. once daily ?Fall precautions ?Further medical management per hospitalist recommendation. Hospitalist consult ?Follow-up with PCP and orthopedic surgeon as an outpatient following discharge.
--- NOTE | 2018-12-17 14:18 | NURSING ---
This nurse received order via Dr. Zhu's nurse Yanet. If patient can come to office on Monday, we are to make an appt and if not, nursing here is able to take out sutures/puja. Dr. Zhu aware of Dr. Fontana's order received this morning to do xray of left hip due to c/o pain. Xray result not in yet but will review.
[2018-12-17] MEDS: Rivaroxaban 20 MG Tablet PO (17:23)
--- NOTE | 2018-12-17 18:52 | NURSING ---
Patient and aware of new change in WB status. Patient given demonstration and demonstrated back TTWB.
[2018-12-17 19:59] VITALS: BP 132/68; PULSE 69; RESP 17; TEMP 36.6; O2SAT 93
--- NOTE | 2018-12-17 20:35 | NURSING ---
Wound cleansed & ABD dressing to left hip changed.
[2018-12-18] MEDS: oxyCODONE 5 MG Tablet 10 MG PO ×3 (06:23→18:53)
[2018-12-18] MEDS: Nystatin Powder 15gm Bottle 1 APPLIC TOPICAL ×3 (06:24→22:00)
[2018-12-18] MEDS: Acetaminophen 500 MG Tablet 1000 MG PO ×3 (06:24→22:00)
[2018-12-18 07:57] VITALS: BP 122/62; PULSE 80; RESP 16; TEMP 36.5; O2SAT 90
[2018-12-18] MEDS: Pantoprazole Sodium 40 MG Tablet PO (07:58)
[2018-12-18] MEDS: hydroCHLOROthiazide 25 MG Tablet PO (07:58)
[2018-12-18] MEDS: Carvedilol 25 MG Tablet PO ×2 (07:58→22:00)
[2018-12-18] MEDS: Polyethylene Glycol 3350 17 GM PACKET PO (07:59)
[2018-12-18] MEDS: Hydroxychloroquine 200 MG Tablet PO ×2 (07:59→17:19)
[2018-12-18] MEDS: Amiodarone 200 MG Tablet PO (07:59)
[2018-12-18] MEDS: Meloxicam 7.5 MG Tablet PO ×2 (07:59→22:00)
[2018-12-18] MEDS: Losartan Potassium 100 MG Tablet PO (07:59)
[2018-12-18] MEDS: Calcium (Elemental) 500 MG Tablet 1000 MG PO (07:59)
[2018-12-18] MEDS: Folic Acid 1 MG Tablet PO (08:00)
[2018-12-18] MEDS: Magnesium Oxide 400 MG Tablet PO (08:00)
[2018-12-18] MEDS: Rivaroxaban 20 MG Tablet PO (17:19)
--- NOTE | 2018-12-18 18:12 | NURSING ---
pain meds offered to pt this afternoon, pt declined and states he has no discomfort at this time and will notify nursing when he needs pain medication.
[2018-12-18 19:34] VITALS: BP 117/60; PULSE 74; RESP 19; TEMP 36.9; O2SAT 92
[2018-12-18 20:04] VITALS: PULSE 74
[2018-12-18] MEDS: Senna/Docusate Sodium 1 Tablet 2 TABLET PO (22:00)
[2018-12-19] MEDS: Acetaminophen 500 MG Tablet 1000 MG PO ×3 (05:17→21:10)
[2018-12-19] MEDS: oxyCODONE 5 MG Tablet 10 MG PO ×3 (05:18→21:09)
[2018-12-19] MEDS: Nystatin Powder 15gm Bottle 1 APPLIC TOPICAL ×3 (05:21→21:09)
[2018-12-19 07:00] VITALS: BP 152/81; PULSE 67; RESP 17; TEMP 36.6; O2SAT 93
[2018-12-19] MEDS: Polyethylene Glycol 3350 17 GM PACKET PO (07:56)
[2018-12-19] MEDS: Magnesium Oxide 400 MG Tablet PO (07:56)
[2018-12-19] MEDS: Folic Acid 1 MG Tablet PO (07:56)
[2018-12-19] MEDS: Calcium (Elemental) 500 MG Tablet 1000 MG PO (07:57)
[2018-12-19] MEDS: Carvedilol 25 MG Tablet PO ×2 (07:57→21:09)
[2018-12-19] MEDS: Hydroxychloroquine 200 MG Tablet PO ×2 (07:57→17:27)
[2018-12-19] MEDS: Amiodarone 200 MG Tablet PO (07:57)
[2018-12-19] MEDS: Losartan Potassium 100 MG Tablet PO (07:57)
[2018-12-19] MEDS: hydroCHLOROthiazide 25 MG Tablet PO (07:57)
[2018-12-19] MEDS: Senna/Docusate Sodium 1 Tablet 2 TABLET PO ×2 (07:58→21:10)
[2018-12-19] MEDS: Meloxicam 7.5 MG Tablet PO ×2 (07:58→21:09)
[2018-12-19] MEDS: Pantoprazole Sodium 40 MG Tablet PO (07:58)
--- NOTE | 2018-12-19 13:39 | PCM.PN.NEU ---
Patient Problems: Active and Suspected Problems (Last Reviewed 11/08/18 @ 14:38 by Felipe Harley MD) Debility (Acute) Fall (Acute) Subjective: No new complaints. Tolerating therapies. No GI or complaints. Continues to experience left hip pain but is improving. No further falls. - Physical Exam General: Alert, Oriented x3, Cooperative, No apparent distress HEENT: PERRLA, EOMI Lungs: Clear to auscultation Cardiovascular: Regular rate Abdomen: Bowel Sounds Present Extremities: No Calf Tenderness Neurological: Cranial nerves II-XII grossly intact Psych/Mental Status: Normal Affect, Alert and oriented to time, place, person, mood and affect Vital Signs Temp Pulse Resp BP Pulse Ox 36.6 C 67 17 152/81 H 93 12/19/18 07:00 12/19/18 07:00 12/19/18 07:00 12/19/18 07:00 12/19/18 07:00 Oxygen Delivery Method Room Air Weight: 132.6 kg Body Mass Index (BMI) 37.6 Intake and Output for Last 24 Hours 12/17/18 12/18/18 12/19/18 23:59 23:59 23:59 Intake Total 720 / 720 360 / 360 Balance 720 / 720 360 / 360 Current Medications Generic Name Dose Route Start Last Admin Trade Name Freq PRN Reason Stop Dose Admin Acetaminophen 1,000 mg 12/13/18 22:00 12/19/18 05:17 Tylenol PO 1,000 mg Q8 JAVAN Administration Amiodarone HCl 200 mg 12/14/18 10:00 12/19/18 07:57 Cordarone PO 200 mg DAILY [facility] Administration Bisacodyl 10 mg 12/13/18 17:05 Dulcolax RECTAL .PRN X 1 PRN Constipation Calcium Carbonate 1,000 mg 12/14/18 08:00 12/19/18 07:57 Os-Emmanuel 500 PO 1,000 mg DAILY@0800 [facility] Administration Carvedilol 25 mg 12/13/18 22:00 12/19/18 07:57 Coreg PO 25 mg BID [facility] Administration Cholecalciferol 2,000 unit 12/14/18 08:00 12/19/18 07:57 Vitamin D PO 2,000 unit DAILY@0800 [facility] Administration Folic Acid 1 mg 12/14/18 08:00 12/19/18 07:56 Folic Acid PO 1 mg DAILYCM JAVAN Administration Hydrochlorothiazide 25 mg 12/14/18 10:00 12/19/18 07:57 Hctz PO 25 mg DAILY JAVAN Administration Hydroxychloroquine Sulfate 200 mg 12/14/18 08:00 12/19/18 07:57 Plaquenil PO 200 mg BIDCM [facility]AVAN Administration Losartan Potassium 100 mg 12/14/18 10:00 12/19/18 07:57 Cozaar PO 100 mg DAILY [facility]AN Administration Magnesium Hydroxide 30 ml 12/13/18 17:05 Milk Of Magnesia PO .PRN X 1 PRN Constipation Magnesium Oxide 400 mg 12/14/18 08:00 12/19/18 07:56 Mag-Ox 400 PO 400 mg DAILYCM [facility] Administration Meloxicam 7.5 mg 12/13/18 22:00 12/19/18 07:58 Mobic PO 7.5 mg BID [facility]AV[facility] Administration Methotrexate 20 mg 12/17/18 08:00 12/17/18 07:50 Methotrexate PO 20 mg Mo@0800 JAVAN Administration Nystatin 1 applic 12/13/18 22:00 12/19/18 05:21 Mycostatin Powder TOPICAL 1 applicatio TID [facility] Administration Protocol Oxycodone HCl 10 mg 12/13/18 17:26 12/19/18 10:09 Oxyir PO 10 mg Q4H PRN PRN Administration Moderate Pain (pain scale 4-5) Pantoprazole Sodium 40 mg 12/14/18 10:00 12/19/18 07:58 Protonix PO 40 mg DAILY [facility] Administration Polyethylene Glycol 17 gm 12/14/18 10:00 12/19/18 07:56 Miralax PO 17 gm DAILY [facility] Administration Rivaroxaban 20 mg 12/13/18 17:00 12/18/18 17:19 Xarelto PO 20 mg DAILY@1700 [facility] Administration Senna/Docusate Sodium 2 tablet 12/13/18 22:00 12/19/18 07:58 Senokot-S, Yuliet-Colace PO 2 tablet BID [facility] Administration Medical Necessity - Tobacco Use Smoking Status: Never smoker Assessment/Plan All Active Problems (Last Reviewed 11/08/18 @ 14:38 by Felipe Harley MD) Hip fracture, left (Acute) Debility (Acute) Fall (Acute) Small bowel obstruction (Acute) Atrial fibrillation (Acute) Per notes: The patient is a 78 year old M with PMH of HTN, RA, new onset A. fib (on Xarelto), recent admission for small bowel obstruction admitted to [facility] inpatient rehab unit on 12/13/2018 with debility S/P mechanical fall, found to have impacted nondisplaced subcapital fracture of left hip and is S/P closed reduction with pinning of left hip by Dr. Zhu on 12/10/2018, for greater than 3 hours therapy daily with the aim of returning back home at or near his prior level of functional independence. Per patient he had a mechanical fall at home while walking with his cane. He lives with his , uses cane and a Rollator to ambulate, denies any frequent falls, does drive and does not need any assistance for his ADLs. He lives in a [place] house, and has 2-3 steps going into the house. Per patient he has a history of RA and is on methotrexate 2.5 mg 8 tablets once weekly for the same. At present patient denies any new onset of headache, dizziness, visual disturbances, speech disturbances, new onset focal motor weakness or sensory loss. Impression: Debility status post small bowel obstruction, mechanical fall, left hip fracture status post ORIF in this previously functionally independent male. Goal of therapy is orthodoxy of prior level of functional independence. Plan ?PT for gait stability and balance ?OT for ADLs ?Analgesics as needed ?Bowel protocol. 12/20: Stable, no further constipation ?Check a repeat x-ray of left hip as over the weekend patient is back on the commode while using the same, following which he had some ecchymosis around the left hip. Per nursing staff over the weekend Dr. Colon's office was notified but will again notify orthopedic surgery Dr. Zhu's office following x-ray hip. ?Left left hip fracture, S/P closed reduction with pinning of the left hip by Dr. Zhu on 12/10/2018?per surgery recommendation partial weightbearing. Further management of left hip fracture per orthopedic surgery recommendation. Further postsurgical management of left hip fracture per orthopedic surgery recommendation. 12/20: Stable, improved pain ?HTN?Coreg 25 mg p.o. twice daily, hydrochlorthiazide 25 mg daily, losartan 100 mg p.o. daily ?A. fib?on amiodarone and Xarelto 20 mg once daily. 12/20: Stable ?RA?on methotrexate 2.5 mg p.o. 8 tablets once a week, on folic acid and on Plaquenil 200 mg p.o. twice daily ?GI/DVT prophylaxis?on pantoprazole and Xarelto 20 mg p.o. once daily ?Fall precautions ?Further medical management per hospitalist recommendation. Hospitalist consult ?Follow-up with PCP and orthopedic surgeon as an outpatient following discharge.
--- NOTE | 2018-12-19 16:37 | PCM.PN.HOSP ---
Patient Problems: Active and Suspected Problems (Last Reviewed 11/08/18 @ 14:38 by Felipe Harley MD) Debility (Acute) Fall (Acute) Subjective: Feeling well. Eating well. Good BMs. Vitals/I&O's: Vital Signs Temp Pulse Resp BP Pulse Ox 36.6 C 67 17 152/81 H 93 12/19/18 07:00 12/19/18 07:00 12/19/18 07:00 12/19/18 07:00 12/19/18 07:00 Oxygen Delivery Method Room Air Weight: 132.6 kg Body Mass Index (BMI) 37.6 Intake and Output for Last 24 Hours 12/17/18 12/18/18 12/19/18 23:59 23:59 23:59 Intake Total 720 / 720 360 / 360 Balance 720 / 720 360 / 360 General: Alert, Cooperative, No apparent distress HEENT: Atraumatic, Normocephalic Oral: Moist Mucosa, No Gingival or Mucosal Lesions/ Ulcerations Neck: No Nodes, Thyroid Normal Size and Texture Lungs: Clear to auscultation, Normal air movement, No rhonchi, No wheeze Cardiovascular: Regular rate, Regular Rhythm, Normal S1, Normal S2, No murmurs Abdomen: Bowel Sounds Present, Soft, Non Tender, Non-Distended, No Hepato-splenomegaly, Obese Extremities: No Calf Tenderness Current Medications Acetaminophen (Tylenol) 1,000 mg PO Q8 [facility] Last Admin: 12/19/18 14:42 Dose: 1,000 mg Amiodarone HCl (Cordarone) 200 mg PO DAILY [facility] Last Admin: 12/19/18 07:57 Dose: 200 mg Bisacodyl (Dulcolax) 10 mg RECTAL .PRN X 1 PRN PRN Reason: Constipation Calcium Carbonate (Os-Emmanuel 500) 1,000 mg PO DAILY@0800 [facility] Last Admin: 12/19/18 07:57 Dose: 1,000 mg Carvedilol (Coreg) 25 mg PO BID [facility] Last Admin: 12/19/18 07:57 Dose: 25 mg Cholecalciferol (Vitamin D) 2,000 unit PO DAILY@0800 [facility] Last Admin: 12/19/18 07:57 Dose: 2,000 unit Folic Acid (Folic Acid) 1 mg PO DAILYCM [facility] Last Admin: 12/19/18 07:56 Dose: 1 mg Hydrochlorothiazide (Hctz) 25 mg PO DAILY [facility] Last Admin: 12/19/18 07:57 Dose: 25 mg [facility] Last Admin: 12/19/18 07:57 Dose: 200 mg Losartan Potassium (Cozaar) 100 mg PO DAILY [facility] Last Admin: 12/19/18 07:57 Dose: 100 mg Magnesium Hydroxide (Milk Of Magnesia) 30 ml PO .PRN X 1 PRN PRN Reason: Constipation Magnesium Oxide (Mag-Ox 400) [facility] Last Admin: 12/19/18 07:56 Dose: 400 mg Meloxicam (Mobic) 7.5 mg PO BID [facility] Last Admin: 12/19/18 07:58 Dose: 7.5 mg Methotrexate (Methotrexate) 20 mg PO Mo@0800 [facility] Last Admin: 12/17/18 07:50 Dose: 20 mg Nystatin (Mycostatin Powder) 1 applic TOPICAL TID [facility]; Protocol Last Admin: 12/19/18 14:44 Dose: 1 applicatio Oxycodone HCl (Oxyir) 10 mg PO Q4H PRN PRN PRN Reason: Moderate Pain (pain scale 4-5) Last Admin: 12/19/18 10:09 Dose: 10 mg Pantoprazole Sodium (Protonix) 40 mg PO DAILY [facility] Last Admin: 12/19/18 07:58 Dose: 40 mg Polyethylene Glycol (Miralax) 17 gm PO DAILY [facility] Last Admin: 12/19/18 07:56 Dose: 17 gm Rivaroxaban (Xarelto) 20 mg PO DAILY@1700 [facility] Last Admin: 12/18/18 17:19 Dose: 20 mg Senna/Docusate Sodium (Senokot-S, Yuliet-Colace) 2 tablet PO BID [facility] Last Admin: 12/19/18 07:58 Dose: 2 tablet Medical Necessity - Tobacco Use Smoking Status: Never smoker Assessment/Plan All Active Problems (Last Reviewed 11/08/18 @ 14:38 by Felipe Harley MD) Hip fracture, left (Acute) Debility (Acute) Fall (Acute) Small bowel obstruction (Acute) Atrial fibrillation (Acute) 1. Left hip fracture s/p ORIF toe-touch weight bearing follow up with Dr. Zhu as outpt. 2. Afib stable anticoagulated with xarelto continue Amio 3. DVT proph: anticoagulated. Code Visit Inpatient E&M: 38034 Subs Hosp L2
--- NOTE | 2018-12-19 16:42 | PN_ITS ---
Patient Problems: Active and Suspected Problems (Last Reviewed 11/08/18 @ 14:38 by Felipe Harley MD) Debility (Acute) Fall (Acute) Subjective: Feeling well. Eating well. Good BMs. Vitals/I&O's: Vital Signs Temp Pulse Resp BP Pulse Ox 36.6 C 67 17 152/81 H 93 12/19/18 07:00 12/19/18 07:00 12/19/18 07:00 12/19/18 07:00 12/19/18 07:00 Oxygen Delivery Method Room Air Weight: 132.6 kg Body Mass Index (BMI) 37.6 Intake and Output for Last 24 Hours 12/17/18 12/18/18 12/19/18 23:59 23:59 23:59 Intake Total 720 / 720 360 / 360 Balance 720 / 720 360 / 360 General: Alert, Cooperative, No apparent distress HEENT: Atraumatic, Normocephalic Oral: Moist Mucosa, No Gingival or Mucosal Lesions/ Ulcerations Neck: No Nodes, Thyroid Normal Size and Texture Lungs: Clear to auscultation, Normal air movement, No rhonchi, No wheeze Cardiovascular: Regular rate, Regular Rhythm, Normal S1, Normal S2, No murmurs Abdomen: Bowel Sounds Present, Soft, Non Tender, Non-Distended, No Hepato- splenomegaly, Obese Extremities: No Calf Tenderness Current Medications Acetaminophen (Tylenol) 1,000 mg PO Q8 [facility] Last Admin: 12/19/18 14:42 Dose: 1,000 mg Amiodarone HCl (Cordarone) 200 mg PO DAILY [facility] Last Admin: 12/19/18 07:57 Dose: 200 mg Bisacodyl (Dulcolax) 10 mg RECTAL .PRN X 1 PRN PRN Reason: Constipation Calcium Carbonate (Os-Emmanuel 500) 1,000 mg PO DAILY@0800 [facility] Last Admin: 12/19/18 07:57 Dose: 1,000 mg Carvedilol (Coreg) 25 mg PO BID [facility] Last Admin: 12/19/18 07:57 Dose: 25 mg Cholecalciferol (Vitamin D) 2,000 unit PO DAILY@0800 [facility] Last Admin: 12/19/18 07:57 Dose: 2,000 unit Folic Acid (Folic Acid) 1 mg PO DAILYCM [facility] Last Admin: 12/19/18 07:56 Dose: 1 mg Hydrochlorothiazide (Hctz) 25 mg PO DAILY [facility] Last Admin: 12/19/18 07:57 Dose: 25 mg [facility]xychloroquine [facility] ([facility]il) [facility] Last Admin: 12/19/18 07:57 Dose: 200 mg Losartan Potassium (Cozaar) 100 mg PO DAILY [facility] Last Admin: 12/19/18 07:57 Dose: 100 mg Magnesium Hydroxide (Milk Of Magnesia) 30 ml PO .PRN X 1 PRN PRN Reason: Constipation Magnesium Oxide (Mag-Ox 400) [facility] Last Admin: 12/19/18 07:56 Dose: 400 mg Meloxicam (Mobic) 7.5 mg PO BID [facility] Last Admin: 12/19/18 07:58 Dose: 7.5 mg Methotrexate (Methotrexate) 20 mg PO Mo@0800 [facility] Last Admin: 12/17/18 07:50 Dose: 20 mg Nystatin (Mycostatin Powder) 1 applic TOPICAL TID [facility]; Protocol Last Admin: 12/19/18 14:44 Dose: 1 applicatio Oxycodone HCl (Oxyir) 10 mg PO Q4H PRN PRN PRN Reason: Moderate Pain (pain scale 4-5) Last Admin: 12/19/18 10:09 Dose: 10 mg Pantoprazole Sodium (Protonix) 40 mg PO DAILY [facility] Last Admin: 12/19/18 07:58 Dose: 40 mg Polyethylene Glycol (Miralax) 17 gm PO DAILY [facility] Last Admin: 12/19/18 07:56 Dose: 17 gm Rivaroxaban (Xarelto) 20 mg PO DAILY@1700 [facility] Last Admin: 12/18/18 17:19 Dose: 20 mg Senna/Docusate Sodium (Senokot-S, Yuliet-Colace) 2 tablet PO BID [facility] Last Admin: 12/19/18 07:58 Dose: 2 tablet Medical Necessity - Tobacco Use Smoking Status: Never smoker Assessment/Plan All Active Problems (Last Reviewed 11/08/18 @ 14:38 by Felipe Harley MD) Hip fracture, left (Acute) Debility (Acute) Fall (Acute) Small bowel obstruction (Acute) Atrial fibrillation (Acute) 1. Left hip fracture s/p ORIF toe-touch weight bearing follow up with Dr. Zhu as outpt. 2. Afib stable anticoagulated with xarelto continue Amio 3. DVT proph: anticoagulated. Code Visit Inpatient E&M: 90554 Subs Hosp L2
[2018-12-19] MEDS: Rivaroxaban 20 MG Tablet PO (17:27)
[2018-12-19 19:59] VITALS: BP 119/62; PULSE 69; RESP 16; TEMP 36.7; O2SAT 97
[2018-12-19 22:00] VITALS: PULSE 67
[2018-12-20] MEDS: Acetaminophen 500 MG Tablet 1000 MG PO ×3 (06:25→21:05)
[2018-12-20] MEDS: Nystatin Powder 15gm Bottle 1 APPLIC TOPICAL ×3 (06:26→21:06)
[2018-12-20 07:48] VITALS: BP 141/79; PULSE 78; RESP 18; TEMP 36.6; O2SAT 94
[2018-12-20] MEDS: Senna/Docusate Sodium 1 Tablet 2 TABLET PO ×2 (07:53→21:06)
[2018-12-20] MEDS: hydroCHLOROthiazide 25 MG Tablet PO (07:54)
[2018-12-20] MEDS: Losartan Potassium 100 MG Tablet PO (07:54)
[2018-12-20] MEDS: Folic Acid 1 MG Tablet PO (07:54)
[2018-12-20] MEDS: Amiodarone 200 MG Tablet PO (07:54)
[2018-12-20] MEDS: Calcium (Elemental) 500 MG Tablet 1000 MG PO (07:54)
[2018-12-20] MEDS: Meloxicam 7.5 MG Tablet PO ×2 (07:54→21:06)
[2018-12-20] MEDS: Magnesium Oxide 400 MG Tablet PO (07:54)
[2018-12-20] MEDS: Carvedilol 25 MG Tablet PO ×2 (07:54→21:06)
[2018-12-20] MEDS: Pantoprazole Sodium 40 MG Tablet PO (07:54)
[2018-12-20] MEDS: Hydroxychloroquine 200 MG Tablet PO ×2 (07:54→16:36)
[2018-12-20] MEDS: Polyethylene Glycol 3350 17 GM PACKET PO (07:55)
[2018-12-20] MEDS: oxyCODONE 5 MG Tablet 10 MG PO ×3 (08:00→20:03)
--- NOTE | 2018-12-20 11:32 | CASEMGMT ---
Team meeting held. Patient present as well as patient family. No discharge date set. Patient approved 16 Medicare days with a discharge on or by 12/19/18. Patient plans to discharge to home with spouse vs. SNF. Patient reporting that in the event that patient will need to discharge to a SNF that [facility] first option and [facility] would be the second option. Social work to meet with patient and patient family next week to discuss discharge planning further. Support given. Danielle Almazan MSW, SABRINA
--- NOTE | 2018-12-20 11:33 | PCM.PN.NEU ---
Patient Problems: Active and Suspected Problems (Last Reviewed 11/08/18 @ 14:38 by Felipe Harley MD) Debility (Acute) Fall (Acute) Subjective: Patient staffed in team meeting today. He wonders about his weightbearing precautions which are currently toe-touch weightbearing after his fall. He also has some new right hip pain after his fall which is worse when he is supine but better when he is sitting up. He does not want any further treatment for this, Dr. Zhu is aware of this and the x-rays were negative. With physical therapy he is putting forth a good effort but he is not able to maintain his toe-touch weightbearing status. With occupational therapy he is doing well, currently only sponge bathing due to drainage needs some help with this but is set up level with his upper body care. Nursing notes that his pain issues as noted above but otherwise controlled with Tylenol and OxyContin and his vital signs are okay. 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 The patient's and granddaughter are present, questions are answered. No other complaints. Tolerating therapies otherwise. No GI or complaints. - Physical Exam General: Alert, Oriented x3, Cooperative, No apparent distress Neurological: Cranial nerves II-XII grossly intact Psych/Mental Status: Normal Affect Vital Signs Temp Pulse Resp BP Pulse Ox 36.6 C 78 18 141/79 H 94 12/20/18 07:48 12/20/18 07:48 12/20/18 07:48 12/20/18 07:48 12/20/18 07:48 Oxygen Delivery Method Room Air Weight: 132.6 kg Body Mass Index (BMI) 37.6 Intake and Output for Last 24 Hours 12/18/18 12/19/18 12/20/18 23:59 23:59 23:59 Intake Total 600 / 600 240 / 240 Balance 600 / 600 240 / 240 Current Medications Generic Name Dose Route Start Last Admin Trade Name Freq PRN Reason Stop Dose Admin Acetaminophen 1,000 mg 12/13/18 22:00 12/20/18 06:25 Tylenol PO 1,000 mg Q8 [facility]AVAN Administration Amiodarone HCl 200 mg 12/14/18 10:00 12/20/18 07:54 Cordarone PO 200 mg DAILY [facility] Administration Bisacodyl 10 mg 12/13/18 17:05 Dulcolax RECTAL .PRN X 1 PRN Constipation Calcium Carbonate 1,000 mg 12/14/18 08:00 12/20/18 07:54 Os-Emmanuel 500 PO 1,000 mg DAILY@0800 [facility] Administration Carvedilol 25 mg 12/13/18 22:00 12/20/18 07:54 Coreg PO 25 mg BID [facility] Administration Cholecalciferol 2,000 unit 12/14/18 08:00 12/20/18 07:54 Vitamin D PO 2,000 unit DAILY@0800 [facility] Administration Folic Acid 1 mg 12/14/18 08:00 12/20/18 07:54 [facility] Hydrochlorothiazide 25 mg 12/14/18 10:00 12/20/18 07:54 Hctz PO 25 mg DAILY [facility] Administration Hydroxychloroquine Sulfate 200 mg 12/14/18 08:00 12/20/18 07:54 [facility] Losartan Potassium 100 mg 12/14/18 10:00 12/20/18 07:54 Cozaar PO 100 mg DAILY [facility] Administration Magnesium Hydroxide 30 ml 12/13/18 17:05 Milk Of Magnesia PO .PRN X 1 PRN Constipation Magnesium Oxide 400 mg 12/14/18 08:00 12/20/18 07:54 [facility] Meloxicam 7.5 mg 12/13/18 22:00 12/20/18 07:54 Mobic PO 7.5 mg BID [facility] Administration Methotrexate 20 mg 12/17/18 08:00 12/17/18 07:50 Methotrexate PO 20 mg Mo@0800 [facility] Administration Nystatin 1 applic 12/13/18 22:00 12/20/18 06:26 Mycostatin Powder TOPICAL 1 applicatio TID [facility] Administration Protocol Oxycodone HCl 10 mg 12/13/18 17:26 12/20/18 08:00 Oxyir PO 10 mg Q4H PRN PRN Administration Moderate Pain (pain scale 4-5) Pantoprazole Sodium 40 mg 12/14/18 10:00 12/20/18 07:54 Protonix PO 40 mg DAILY [facility] Administration Polyethylene Glycol 17 gm 12/14/18 10:00 12/20/18 07:55 Miralax PO 17 gm DAILY [facility] Administration Rivaroxaban 20 mg 12/13/18 17:00 02/06/19 17:27 Xarelto PO 20 mg DAILY@1700 [facility] Administration Senna/Docusate Sodium 2 tablet 12/13/18 22:00 12/20/18 07:53 Senokot-S, Yuliet-Colace PO 2 tablet BID [facility] Administration Medical Necessity - Tobacco Use Smoking Status: Never smoker Assessment/Plan All Active Problems (Last Reviewed 11/08/18 @ 14:38 by Felipe Harley MD) Hip fracture, left (Acute) Debility (Acute) Fall (Acute) Small bowel obstruction (Acute) Atrial fibrillation (Acute) Per notes: The patient is a 78 year old M with PMH of HTN, RA, new onset A. fib (on Xarelto), recent admission for small bowel obstruction admitted to [facility] inpatient rehab unit on 12/13/2018 with debility S/P mechanical fall, found to have impacted nondisplaced subcapital fracture of left hip and is S/P closed reduction with pinning of left hip by Dr. Zhu on 12/10/2018, for greater than 3 hours therapy daily with the aim of returning back home at or near his prior level of functional independence. Per patient he had a mechanical fall at home while walking with his cane. He lives with his , uses cane and a Rollator to ambulate, denies any frequent falls, does drive and does not need any assistance for his ADLs. He lives in [place] house, and has 2-3 steps going into the house. Per patient he has a history of RA and is on methotrexate 2.5 mg 8 tablets once weekly for the same. At present patient denies any new onset of headache, dizziness, visual disturbances, speech disturbances, new onset focal motor weakness or sensory loss. Impression: Debility status post small bowel obstruction, mechanical fall, left hip fracture status post ORIF in this previously functionally independent male. Goal of therapy is jewish of prior level of functional independence. Plan ?PT for gait stability and balance ?OT for ADLs ?Analgesics as needed. Will monitor his new left hip pain after he fell but this appears to be stable and x-rays were negative. Does not want further analgesics. ?Bowel protocol. 12/20: Stable, no further constipation ?Check a repeat x-ray of left hip as over the weekend patient is back on the commode while using the same, following which he had some ecchymosis around the left hip. Per nursing staff over the weekend Dr. Colon's office was notified but will again notify orthopedic surgery Dr. Zhu's office following x-ray hip. ?Left left hip fracture, S/P closed reduction with pinning of the left hip by Dr. Zhu on 12/10/2018?per surgery recommendation partial weightbearing. Further management of left hip fracture per orthopedic surgery recommendation. Further postsurgical management of left hip fracture per orthopedic surgery recommendation. 12/20: Stable, improved pain ?HTN?Coreg 25 mg p.o. twice daily, hydrochlorthiazide 25 mg daily, losartan 100 mg p.o. daily ?A. fib?on amiodarone and Xarelto 20 mg once daily. 12/20: Stable ?RA?on methotrexate 2.5 mg p.o. 8 tablets once a week, on folic acid and on Plaquenil 200 mg p.o. twice daily ?GI/DVT prophylaxis?on pantoprazole and Xarelto 20 mg p.o. once daily ?Fall precautions ?Further medical management per hospitalist recommendation. Hospitalist consult ?Follow-up with PCP and orthopedic surgeon as an outpatient following discharge.
--- NOTE | 2018-12-20 11:36 | PN.NEURO_ITS ---
Patient Problems: Active and Suspected Problems (Last Reviewed 11/08/18 @ 14:38 by Felipe Harley MD) Debility (Acute) Fall (Acute) Subjective: Patient staffed in team meeting today. He wonders about his weightbearing precautions which are currently toe-touch weightbearing after his fall. He also has some new right hip pain after his fall which is worse when he is supine but better when he is sitting up. He does not want any further treatment for this, Dr. Zhu is aware of this and the x-rays were negative. With physical therapy he is putting forth a good effort but he is not able to maintain his toe-touch weightbearing status. With occupational therapy he is doing well, currently only sponge bathing due to drainage needs some help with this but is set up level with his upper body care. Nursing notes that his pain issues as noted above but otherwise controlled with Tylenol and OxyContin and his vital signs are okay. 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 The patient's and granddaughter are present, questions are answered. No other complaints. Tolerating therapies otherwise. No GI or complaints. - Physical Exam General: Alert, Oriented x3, Cooperative, No apparent distress Neurological: Cranial nerves II-XII grossly intact Psych/Mental Status: Normal Affect Vital Signs Temp Pulse Resp BP Pulse Ox 36.6 C 78 18 141/79 H 94 12/20/18 07:48 12/20/18 07:48 12/20/18 07:48 12/20/18 07:48 12/20/18 07:48 Oxygen Delivery Method Room Air Weight: 132.6 kg Body Mass Index (BMI) 37.6 Intake and Output for Last 24 Hours 12/18/18 12/19/18 12/20/18 23:59 23:59 23:59 Intake Total 600 / 600 240 / 240 Balance 600 / 600 240 / 240 Current Medications Generic Name Dose Route Start Last Admin Trade Name Freq PRN Reason Stop Dose Admin Acetaminophen 1,000 mg 12/13/18 22:00 12/20/18 06:25 Tylenol PO 1,000 mg Q8 JAVAN Administration Amiodarone HCl 200 mg 12/14/18 10:00 12/20/18 07:54 Cordarone PO 200 mg DAILY [facility] Administration Bisacodyl 10 mg 12/13/18 17:05 Dulcolax RECTAL .PRN X 1 PRN Constipation Calcium Carbonate 1,000 mg 12/14/18 08:00 12/20/18 07:54 Os-Emmanuel 500 PO 1,000 mg DAILY@0800 [facility] Administration Carvedilol 25 mg 12/13/18 22:00 12/20/18 07:54 Coreg PO 25 mg BID [facility] Administration Cholecalciferol 2,000 unit 12/14/18 08:00 12/20/18 07:54 Vitamin D PO 2,000 unit DAILY@0800 [facility] Administration Folic Acid 1 mg 12/14/18 08:00 12/20/18 07:54 [facility] Hydrochlorothiazide 25 mg 12/14/18 10:00 12/20/18 07:54 Hctz PO 25 mg DAILY [facility] Administration Hydroxychloroquine Sulfate 200 mg 12/14/18 08:00 12/20/18 07:54 [facility]il [facility] Administration Losartan Potassium 100 mg 12/14/18 10:00 12/20/18 07:54 Cozaar PO 100 mg DAILY [facility] Administration Magnesium Hydroxide 30 ml 12/13/18 17:05 Milk Of Magnesia PO .PRN X 1 PRN Constipation Magnesium Oxide 400 mg 12/14/18 08:00 12/20/18 07:54 Mag-Ox 400 [facility] Administration Meloxicam 7.5 mg 12/13/18 22:00 12/20/18 07:54 Mobic PO 7.5 mg BID [facility] Administration Methotrexate 20 mg 12/17/18 08:00 12/17/18 07:50 Methotrexate PO 20 mg Mo@0800 [facility] Administration Nystatin 1 applic 12/13/18 22:00 12/20/18 06:26 Mycostatin Powder TOPICAL 1 applicatio TID [facility] Administration Protocol Oxycodone HCl 10 mg 12/13/18 17:26 12/20/18 08:00 Oxyir PO 10 mg Q4H PRN PRN Administration Moderate Pain (pain scale 4-5) Pantoprazole Sodium 40 mg 12/14/18 10:00 12/20/18 07:54 Protonix PO 40 mg DAILY [facility] Administration Polyethylene Glycol 17 gm 12/14/18 10:00 12/20/18 07:55 Miralax PO 17 gm DAILY [facility] Administration Rivaroxaban 20 mg 12/13/18 17:00 02/06/19 17:27 Xarelto PO 20 mg DAILY@1700 [facility] Administration Senna/Docusate Sodium 2 tablet 12/13/18 22:00 12/20/18 07:53 Senokot-S, Yuliet-Colace PO 2 tablet BID [facility] Administration Medical Necessity - Tobacco Use Smoking Status: Never smoker Assessment/Plan All Active Problems (Last Reviewed 11/08/18 @ 14:38 by Felipe Harley MD) Hip fracture, left (Acute) Debility (Acute) Fall (Acute) Small bowel obstruction (Acute) Atrial fibrillation (Acute) Per notes: The patient is a 78 year old M with PMH of HTN, RA, new onset A. fib (on Xarelto), recent admission for small bowel obstruction admitted to [facility] inpatient rehab unit on 12/13/2018 with debility S/P mechanical fall, found to have impacted nondisplaced subcapital fracture of left hip and is S/P closed reduction with pinning of left hip by Dr. Zhu on 12/10/2018, for greater than 3 hours therapy daily with the aim of returning back home at or near his prior level of functional independence. Per patient he had a mechanical fall at home while walking with his cane. He lives with his , uses cane and a Rollator to ambulate, denies any frequent falls, does drive and does not need any assistance for his ADLs. He lives in a ranch house, and has 2-3 steps going into the house. Per patient he has a history of RA and is on methotrexate 2.5 mg 8 tablets once weekly for the same. At present patient denies any new onset of headache, dizziness, visual disturbances, speech disturbances, new onset focal motor weakness or sensory loss. Impression: Debility status post small bowel obstruction, mechanical fall, left hip fracture status post ORIF in this previously functionally independent male. Goal of therapy is orthodox of prior level of functional independence. Plan ?PT for gait stability and balance ?OT for ADLs ?Analgesics as needed. Will monitor his new left hip pain after he fell but this appears to be stable and x-rays were negative. Does not want further analgesics. ?Bowel protocol. 12/20: Stable, no further constipation ?Check a repeat x-ray of left hip as over the weekend patient is back on the commode while using the same, following which he had some ecchymosis around the left hip. Per nursing staff over the weekend Dr. Colon's office was notified but will again notify orthopedic surgery Dr. Zhu's office following x-ray hip. ?Left left hip fracture, S/P closed reduction with pinning of the left hip by Dr. Zhu on 12/10/2018?per surgery recommendation partial weightbearing. Further management of left hip fracture per orthopedic surgery recommendation. Further postsurgical management of left hip fracture per orthopedic surgery recommendation. 12/20: Stable, improved pain ?HTN?Coreg 25 mg p.o. twice daily, hydrochlorthiazide 25 mg daily, losartan 100 mg p.o. daily ?A. fib?on amiodarone and Xarelto 20 mg once daily. 12/20: Stable ?RA?on methotrexate 2.5 mg p.o. 8 tablets once a week, on folic acid and on Plaquenil 200 mg p.o. twice daily ?GI/DVT prophylaxis?on pantoprazole and Xarelto 20 mg p.o. once daily ?Fall precautions ?Further medical management per hospitalist recommendation. Hospitalist consult ?Follow-up with PCP and orthopedic surgeon as an outpatient following discharge.
[2018-12-20] MEDS: Rivaroxaban 20 MG Tablet PO (16:35)
--- NOTE | 2018-12-20 17:38 | NURSING ---
patient requesting to get in wheelchair and have family take him out of room and down to ground floor for a bit- signed out and family states they will notify this RN upon return.
[2018-12-20 19:45] VITALS: BP 121/50; PULSE 75; RESP 18; TEMP 36.6; O2SAT 92
[2018-12-21] MEDS: oxyCODONE 5 MG Tablet 10 MG PO ×4 (02:19→21:30)
[2018-12-21] MEDS: Acetaminophen 500 MG Tablet 1000 MG PO ×3 (06:52→21:29)
[2018-12-21] MEDS: Nystatin Powder 15gm Bottle 1 APPLIC TOPICAL ×3 (06:53→21:32)
[2018-12-21 07:13] VITALS: BP 137/81; PULSE 77; RESP 16; TEMP 36.4; O2SAT 93
[2018-12-21] MEDS: Meloxicam 7.5 MG Tablet PO ×2 (07:16→21:29)
[2018-12-21] MEDS: Senna/Docusate Sodium 1 Tablet 2 TABLET PO ×2 (07:16→21:29)
[2018-12-21] MEDS: Losartan Potassium 100 MG Tablet PO (07:16)
[2018-12-21] MEDS: Polyethylene Glycol 3350 17 GM PACKET PO (07:16)
[2018-12-21] MEDS: Pantoprazole Sodium 40 MG Tablet PO (07:16)
[2018-12-21] MEDS: Folic Acid 1 MG Tablet PO (07:17)
[2018-12-21] MEDS: hydroCHLOROthiazide 25 MG Tablet PO (07:17)
[2018-12-21] MEDS: Amiodarone 200 MG Tablet PO (07:17)
[2018-12-21] MEDS: Carvedilol 25 MG Tablet PO ×2 (07:17→21:29)
[2018-12-21] MEDS: Magnesium Oxide 400 MG Tablet PO (07:17)
[2018-12-21] MEDS: Hydroxychloroquine 200 MG Tablet PO ×2 (07:17→17:14)
[2018-12-21] MEDS: Calcium (Elemental) 500 MG Tablet 1000 MG PO (07:17)
--- NOTE | 2018-12-21 11:43 | PCM.PN.NEU ---
Patient Problems: Active and Suspected Problems (Last Reviewed 11/08/18 @ 14:38 by Felipe Harley MD) Debility (Acute) Fall (Acute) Subjective: No new complaints. He reports that his left hip pain is improved. He is able to sleep okay last night. No GI or complaints. Tolerating therapies. He is concerned about his toe-touch weightbearing status but understands that we need to follow orthopedics recommendations. - Physical Exam General: Alert, Oriented x3, Cooperative, No apparent distress Extremities: No Calf Tenderness Neurological: Cranial nerves II-XII grossly intact Psych/Mental Status: Normal Affect Vital Signs Temp Pulse Resp BP Pulse Ox 36.4 C L 77 16 137/81 H 93 12/21/18 07:13 12/21/18 07:13 12/21/18 07:13 12/21/18 07:13 12/21/18 07:13 Oxygen Delivery Method Room Air Weight: 132.6 kg Body Mass Index (BMI) 37.6 Intake and Output for Last 24 Hours 12/19/18 12/20/18 12/21/18 23:59 23:59 23:59 Intake Total 600 / 600 1680 / 1680 360 / 360 Output Total 700 / 700 Balance 600 / 600 980 / 980 360 / 360 Current Medications Generic Name Dose Route Start Last Admin Trade Name Freq PRN Reason Stop Dose Admin Acetaminophen 1,000 mg 12/13/18 22:00 12/21/18 06:52 Tylenol PO 1,000 mg Q8 [facility] Administration Amiodarone HCl 200 mg 12/14/18 10:00 12/21/18 07:17 Cordarone PO 200 mg DAILY [facility] Administration Bisacodyl 10 mg 12/13/18 17:05 Dulcolax RECTAL .PRN X 1 PRN Constipation Calcium Carbonate 1,000 mg 12/14/18 08:00 12/21/18 07:17 Os-Emmanuel 500 PO 1,000 mg DAILY@0800 [facility] Administration Carvedilol 25 mg 12/13/18 22:00 12/21/18 07:17 Coreg PO 25 mg BID [facility] Administration Cholecalciferol 2,000 unit 12/14/18 08:00 12/21/18 07:16 Vitamin D PO 2,000 unit DAILY@0800 [facility] Administration Folic Acid 1 mg 12/14/18 08:00 12/21/18 07:17 Folic Acid PO 1 mg DAILYCM [facility] Administration Hydrochlorothiazide 25 mg 12/14/18 10:00 12/21/18 07:17 Hctz PO 25 mg DAILY [facility] Administration Hydroxychloroquine Sulfate 200 mg 12/14/18 08:00 12/21/18 07:17 Plaquenil PO 200 mg BIDCM [facility] Administration Losartan Potassium 100 mg 12/14/18 10:00 12/21/18 07:16 Cozaar PO 100 mg DAILY [facility] Administration Magnesium Hydroxide 30 ml 12/13/18 17:05 Milk Of Magnesia PO .PRN X 1 PRN Constipation Magnesium Oxide 400 mg 12/14/18 08:00 12/21/18 07:17 Mag-Ox 400 PO 400 mg DAILYCM [facility] Administration Meloxicam 7.5 mg 12/13/18 22:00 12/21/18 07:16 Mobic PO 7.5 mg BID [facility] Administration Methotrexate 20 mg 12/17/18 08:00 12/17/18 07:50 Methotrexate PO 20 mg Mo@0800 [facility] Administration Nystatin 1 applic 12/13/18 22:00 12/21/18 06:53 Mycostatin Powder TOPICAL 1 applicatio TID [facility] Administration Protocol Oxycodone HCl 10 mg 12/13/18 17:26 12/21/18 11:05 Oxyir PO 10 mg Q4H PRN PRN Administration Moderate Pain (pain scale 4-5) Pantoprazole Sodium 40 mg 12/14/18 10:00 12/21/18 07:16 Protonix PO 40 mg DAILY [facility] Administration Polyethylene Glycol 17 gm 12/14/18 10:00 12/21/18 07:16 Miralax PO 17 gm DAILY [facility] Administration Rivaroxaban 20 mg 12/13/18 17:00 12/20/18 16:35 Xarelto PO 20 mg DAILY@1700 [facility] Administration Senna/Docusate Sodium 2 tablet 12/13/18 22:00 12/21/18 07:16 Senokot-S, Yuliet-Colace PO 2 tablet BID [facility] Administration Medical Necessity - Tobacco Use Smoking Status: Never smoker Assessment/Plan All Active Problems (Last Reviewed 11/08/18 @ 14:38 by Felipe Harley MD) Hip fracture, left (Acute) Debility (Acute) Fall (Acute) Small bowel obstruction (Acute) Atrial fibrillation (Acute) Per notes: The patient is a 78 year old M with PMH of HTN, RA, new onset A. fib (on Xarelto), recent admission for small bowel obstruction admitted to [facility] inpatient rehab unit on 12/13/2018 with debility S/P mechanical fall, found to have impacted nondisplaced subcapital fracture of left hip and is S/P closed reduction with pinning of left hip by Dr. Zhu on 12/10/2018, for greater than 3 hours therapy daily with the aim of returning back home at or near his prior level of functional independence. Per patient he had a mechanical fall at home while walking with his cane. He lives with his , uses cane and a Rollator to ambulate, denies any frequent falls, does drive and does not need any assistance for his ADLs. He lives in a ranch house, and has 2-3 steps going into the house. Per patient he has a history of RA and is on methotrexate 2.5 mg 8 tablets once weekly for the same. At present patient denies any new onset of headache, dizziness, visual disturbances, speech disturbances, new onset focal motor weakness or sensory loss. Impression: Debility status post small bowel obstruction, mechanical fall, left hip fracture status post ORIF in this previously functionally independent male. Goal of therapy is moravian of prior level of functional independence. Plan ?PT for gait stability and balance ?OT for ADLs ?Analgesics as needed. Will monitor his new left hip pain after he fell but this appears to be stable and x-rays were negative. Does not want further analgesics. ?Bowel protocol. 12/20: Stable, no further constipation ?Check a repeat x-ray of left hip as over the weekend patient is back on the commode while using the same, following which he had some ecchymosis around the left hip. Per nursing staff over the weekend Dr. Colon's office was notified but will again notify orthopedic surgery Dr. Zhu's office following x-ray hip. 12/21: Hip pain is improved. ?Left left hip fracture, S/P closed reduction with pinning of the left hip by Dr. Zhu on 12/10/2018?per surgery recommendation partial weightbearing. Further management of left hip fracture per orthopedic surgery recommendation. Further postsurgical management of left hip fracture per orthopedic surgery recommendation. 12/20: Stable, improved pain. 12/21: Improved, maintain toe-touch weightbearing status ?HTN?Coreg 25 mg p.o. twice daily, hydrochlorthiazide 25 mg daily, losartan 100 mg p.o. daily ?A. fib?on amiodarone and Xarelto 20 mg once daily. 12/20: Stable ?RA?on methotrexate 2.5 mg p.o. 8 tablets once a week, on folic acid and on Plaquenil 200 mg p.o. twice daily ?GI/DVT prophylaxis?on pantoprazole and Xarelto 20 mg p.o. once daily ?Fall precautions ?Further medical management per hospitalist recommendation. Hospitalist consult ?Follow-up with PCP and orthopedic surgeon as an outpatient following discharge.
--- NOTE | 2018-12-21 16:03 | PCM.PN.HOSP ---
Patient Problems: Active and Suspected Problems (Last Reviewed 11/08/18 @ 14:38 by Felipe Harley MD) Debility (Acute) Fall (Acute) Subjective: Upset that he cannot put full weight on left leg yet. Vitals/I&O's: Vital Signs Temp Pulse Resp BP Pulse Ox 36.4 C L 77 16 137/81 H 93 12/21/18 07:13 12/21/18 07:13 12/21/18 07:13 12/21/18 07:13 12/21/18 07:13 Oxygen Delivery Method Room Air Weight: 132.6 kg Body Mass Index (BMI) 37.6 Intake and Output for Last 24 Hours 12/19/18 12/20/18 12/21/18 23:59 23:59 23:59 Intake Total 600 / 600 1680 / 1680 600 / 600 Output Total 700 / 700 Balance 600 / 600 980 / 980 600 / 600 General: Alert, No apparent distress HEENT: Atraumatic, Normocephalic Oral: Moist Mucosa Neck: No Nodes, Thyroid Normal Size and Texture Lungs: Clear to auscultation, Normal air movement, No rhonchi, No wheeze Cardiovascular: Regular rate, Regular Rhythm, Normal S1, Normal S2, No murmurs Abdomen: Bowel Sounds Present, Soft, Non Tender, Non-Distended, No Hepato-splenomegaly Extremities: No edema, No Calf Tenderness Psych/Mental Status: Normal Affect, Appropriate Current Medications Acetaminophen (Tylenol) 1,000 mg PO Q8 [facility] Last Admin: 12/21/18 13:27 Dose: 1,000 mg Amiodarone HCl (Cordarone) 200 mg PO DAILY [facility] Last Admin: 12/21/18 07:17 Dose: 200 mg Bisacodyl (Dulcolax) 10 mg RECTAL .PRN X 1 PRN PRN Reason: Constipation Calcium Carbonate (Os-Emmanuel 500) 1,000 mg PO DAILY@0800 [facility] Last Admin: 12/21/18 07:17 Dose: 1,000 mg Carvedilol (Coreg) 25 mg PO BID [facility] Last Admin: 12/21/18 07:17 Dose: 25 mg Cholecalciferol (Vitamin D) 2,000 unit PO DAILY@0800 [facility] Last Admin: 12/21/18 07:16 Dose: 2,000 unit [facility] Admin: 12/21/18 07:17 Dose: 1 mg Hydrochlorothiazide (Hctz) 25 mg PO DAILY [facility] Last Admin: 12/21/18 07:17 Dose: 25 mg Hydroxychloroquine Sulfate (Plaquenil) [facility] Last Admin: 12/21/18 07:17 Dose: 200 mg Losartan Potassium (Cozaar) 100 mg PO DAILY [facility] Last Admin: 12/21/18 07:16 Dose: 100 mg Magnesium Hydroxide (Milk Of Magnesia) 30 ml PO .PRN X 1 PRN PRN Reason: Constipation Magnesium Oxide (Mag-Ox 400) [facility] Last Admin: 12/21/18 07:17 Dose: 400 mg Meloxicam (Mobic) 7.5 mg PO BID [facility] Last Admin: 12/21/18 07:16 Dose: 7.5 mg Methotrexate (Methotrexate) 20 mg PO Mo@0800 [facility] Last Admin: 12/17/18 07:50 Dose: 20 mg Nystatin (Mycostatin Powder) 1 applic TOPICAL TID [facility]; Protocol Last Admin: 12/21/18 13:46 Dose: 1 applicatio Oxycodone HCl (Oxyir) 10 mg PO Q4H PRN PRN PRN Reason: Moderate Pain (pain scale 4-5) Last Admin: 12/21/18 11:05 Dose: 10 mg Pantoprazole Sodium (Protonix) 40 mg PO DAILY [facility] Last Admin: 12/21/18 07:16 Dose: 40 mg Polyethylene Glycol (Miralax) 17 gm PO DAILY [facility] Last Admin: 12/21/18 07:16 Dose: 17 gm Rivaroxaban (Xarelto) 20 mg PO DAILY@1700 [facility] Last Admin: 12/20/18 16:35 Dose: 20 mg Senna/Docusate Sodium (Senokot-S, Yuliet-Colace) 2 tablet PO BID [facility] Last Admin: 12/21/18 07:16 Dose: 2 tablet Medical Necessity - Tobacco Use Smoking Status: Never smoker Assessment/Plan All Active Problems (Last Reviewed 11/08/18 @ 14:38 by Felipe Harley MD) Hip fracture, left (Acute) Debility (Acute) Fall (Acute) Small bowel obstruction (Acute) Atrial fibrillation (Acute) 1. Left hip fracture s/p ORIF toe-touch weight bearing follow up with Dr. Zhu as outpt. 2. Afib stable anticoagulated with xarelto continue Amio 3. DVT proph: anticoagulated. Code Visit Inpatient E&M: 96924 Subs Hosp L2
[2018-12-21] MEDS: Rivaroxaban 20 MG Tablet PO (17:14)
[2018-12-21 21:26] VITALS: BP 141/71; PULSE 72; RESP 18; TEMP 36.6; O2SAT 98
--- NOTE | 2018-12-22 03:11 | NURSING ---
REVIEWED AND AGREE WITH [employer] AND HANDOFF CHARTING.
[2018-12-22] MEDS: Acetaminophen 500 MG Tablet 1000 MG PO ×3 (05:44→20:32)
[2018-12-22] MEDS: Nystatin Powder 15gm Bottle 1 APPLIC TOPICAL ×3 (05:45→20:33)
[2018-12-22 07:00] VITALS: BP 135/72; PULSE 69; RESP 18; TEMP 36.6; O2SAT 93
[2018-12-22] MEDS: Folic Acid 1 MG Tablet PO (07:44)
[2018-12-22] MEDS: Magnesium Oxide 400 MG Tablet PO (07:44)
[2018-12-22] MEDS: Pantoprazole Sodium 40 MG Tablet PO (07:45)
[2018-12-22] MEDS: hydroCHLOROthiazide 25 MG Tablet PO (07:45)
[2018-12-22] MEDS: Hydroxychloroquine 200 MG Tablet PO ×2 (07:45→17:18)
[2018-12-22] MEDS: Amiodarone 200 MG Tablet PO (07:45)
[2018-12-22] MEDS: Losartan Potassium 100 MG Tablet PO (07:45)
[2018-12-22] MEDS: Carvedilol 25 MG Tablet PO ×2 (07:45→20:33)
[2018-12-22] MEDS: Calcium (Elemental) 500 MG Tablet 1000 MG PO (07:45)
[2018-12-22] MEDS: Meloxicam 7.5 MG Tablet PO ×2 (07:45→20:33)
[2018-12-22] MEDS: Polyethylene Glycol 3350 17 GM PACKET PO (07:47)
[2018-12-22] MEDS: Senna/Docusate Sodium 1 Tablet 2 TABLET PO ×2 (07:47→20:33)
[2018-12-22] MEDS: oxyCODONE 5 MG Tablet 10 MG PO ×3 (08:00→20:32)
[2018-12-22] MEDS: Rivaroxaban 20 MG Tablet PO (17:18)
[2018-12-22 19:51] VITALS: BP 122/55; PULSE 73; RESP 16; TEMP 36.6; O2SAT 94
[2018-12-23] MEDS: oxyCODONE 5 MG Tablet 10 MG PO ×3 (05:20→21:41)
[2018-12-23] MEDS: Acetaminophen 500 MG Tablet 1000 MG PO ×3 (05:20→21:28)
[2018-12-23] MEDS: Nystatin Powder 15gm Bottle 1 APPLIC TOPICAL ×3 (05:21→21:35)
[2018-12-23 07:44] VITALS: BP 111/60; PULSE 64; RESP 18; TEMP 36.6; O2SAT 93
[2018-12-23] MEDS: Pantoprazole Sodium 40 MG Tablet PO (08:02)
[2018-12-23] MEDS: Senna/Docusate Sodium 1 Tablet 2 TABLET PO (08:02)
[2018-12-23] MEDS: Hydroxychloroquine 200 MG Tablet PO ×2 (08:02→16:29)
[2018-12-23] MEDS: Meloxicam 7.5 MG Tablet PO ×2 (08:02→21:29)
[2018-12-23] MEDS: Carvedilol 25 MG Tablet PO ×2 (08:03→21:29)
[2018-12-23] MEDS: Folic Acid 1 MG Tablet PO (08:03)
[2018-12-23] MEDS: Losartan Potassium 100 MG Tablet PO (08:03)
[2018-12-23] MEDS: hydroCHLOROthiazide 25 MG Tablet PO (08:03)
[2018-12-23] MEDS: Calcium (Elemental) 500 MG Tablet 1000 MG PO (08:03)
[2018-12-23] MEDS: Magnesium Oxide 400 MG Tablet PO (08:03)
[2018-12-23] MEDS: Amiodarone 200 MG Tablet PO (08:03)
--- NOTE | 2018-12-23 15:07 | PN_ITS ---
Patient Problems: Active and Suspected Problems (Last Reviewed 11/08/18 @ 14:38 by Felipe Harley MD) Debility (Acute) Fall (Acute) Subjective: Patient was seen and examined. He complains of inability to walk on left leg. Denies chest pain, dizziness or SOB. Vitals/I&O's: Vital Signs Temp Pulse Resp BP Pulse Ox 97.9 F 64 18 111/60 93 12/23/18 07:44 12/23/18 07:44 12/23/18 07:44 12/23/18 07:44 12/23/18 07:44 Oxygen Delivery Method Room Air Weight: 132.6 kg Body Mass Index (BMI) 37.6 Intake and Output for Last 24 Hours 12/21/18 12/22/18 12/23/18 23:59 23:59 23:59 Intake Total 600 / 600 600 / 600 Balance 600 / 600 600 / 600 General: Alert, Oriented x3, Cooperative, No apparent distress, - - obese HEENT: Atraumatic, PERRLA, EOMI, Normocephalic Oral: Moist Mucosa Neck: Supple, No JVD, Negative Carotid Bruits Lungs: Clear to auscultation, Normal air movement Cardiovascular: Regular rate, Regular Rhythm, Normal S1, Normal S2, No murmurs Abdomen: Bowel Sounds Present, Soft, Non Tender Extremities: No edema Skin: No rashes, No breakdown Musculoskeletal: No Tenderness to Palpation of Joints or Extremities Lymphatic: No Cervical, Supraclavicular, or Inguinal Adenopathy Neurological: Cranial nerves II-XII grossly intact, Neuro grossly intact Psych/Mental Status: Normal Affect, Appropriate Current Medications Acetaminophen (Tylenol) 1,000 mg PO Q8 [facility] Last Admin: 12/23/18 13:01 Dose: 1,000 mg Amiodarone HCl (Cordarone) 200 mg PO DAILY [facility] Last Admin: 12/23/18 08:03 Dose: 200 mg Bisacodyl (Dulcolax) 10 mg RECTAL .PRN X 1 PRN PRN Reason: Constipation Calcium Carbonate (Os-Emmanuel 500) 1,000 mg PO DAILY@0800 [facility] Last Admin: 12/23/18 08:03 Dose: 1,000 mg Carvedilol (Coreg) 25 mg PO BID [facility] Last Admin: 12/23/18 08:03 Dose: 25 mg Cholecalciferol (Vitamin D) 2,000 unit PO DAILY@0800 [facility] Last Admin: 12/23/18 08:03 Dose: 2,000 unit Folic Acid (Folic Acid) [facility] Last Admin: 12/23/18 08:03 Dose: 1 mg Hydrochlorothiazide (Hctz) 25 mg PO DAILY [facility] Last Admin: 12/23/18 08:03 Dose: 25 mg Hydroxychloroquine Sulfate (Plaquenil) 200 [facility] Last Admin: 12/23/18 08:02 Dose: 200 mg Losartan Potassium (Cozaar) 100 mg PO DAILY [facility] Last Admin: 12/23/18 08:03 Dose: 100 mg Magnesium Hydroxide (Milk Of Magnesia) 30 ml PO .PRN X 1 PRN PRN Reason: Constipation Magnesium Oxide (Mag-Ox 400) 400 [facility] Last Admin: 12/23/18 08:03 Dose: 400 mg Meloxicam (Mobic) 7.5 mg PO BID [facility] Last Admin: 12/23/18 08:02 Dose: 7.5 mg Methotrexate (Methotrexate) 20 mg PO Mo@0800 [facility] Last Admin: 12/17/18 07:50 Dose: 20 mg Nystatin (Mycostatin Powder) 1 applic TOPICAL TID [facility]; Protocol Last Admin: 12/23/18 12:59 Dose: 1 applicatio Oxycodone HCl (Oxyir) 10 mg PO Q4H PRN PRN PRN Reason: Moderate Pain (pain scale 4-5) Last Admin: 12/23/18 14:12 Dose: 10 mg Pantoprazole Sodium (Protonix) 40 mg PO DAILY [facility] Last Admin: 12/23/18 08:02 Dose: 40 mg Polyethylene Glycol (Miralax) 17 gm PO DAILY [facility] Last Admin: 12/23/18 08:10 Dose: Not Given Rivaroxaban (Xarelto) 20 mg PO DAILY@1700 [facility] Last Admin: 12/22/18 17:18 Dose: 20 mg Senna/Docusate Sodium (Senokot-S, Yuliet-Colace) 2 tablet PO BID [facility] Last Admin: 12/23/18 08:02 Dose: 2 tablet Medical Necessity - Tobacco Use Smoking Status: Never smoker Assessment/Plan All Active Problems (Last Reviewed 11/08/18 @ 14:38 by Felipe Harley MD) Hip fracture, left (Acute) Debility (Acute) Fall (Acute) Small bowel obstruction (Acute) Atrial fibrillation (Acute) 78 y/o male with PMHx of obesity, RA, A. fib on Xarelto admitted to the inpatient rehab unit with debility after a mechanical fall and found to have impacted nondisplaced subcapital left fracture of the left hip. Patient had closed reduction with pinning of the left hip by Dr. Zhu on 12/10/2018. 1. Debility related to recent left hip fracture, s/p close reduction percutaneous pinning of the left hip Patient is toe-touch weight bearing, continue with PT and OT, will follow up with Dr. Zhu in the outpatient 2. Chronic Afib, rate controlled, on amiodarone, carvedilol, Xarelto 3. Hypertension, continue on hydrochlorothiazide, losartan 4. RA, on Plaquenil, methotrexate, meloxicam 5. Obesity, diet and exercises recommended 6. DVT PPx- Xarelto. Code Visit Inpatient E&M: 09802 Subs Hosp L2
[2018-12-23] MEDS: Rivaroxaban 20 MG Tablet PO (16:29)
--- NOTE | 2018-12-23 18:23 | NURSING ---
Refused several times to ambulate with staff in hallway. Patient reported she wanted to rest.
[2018-12-23 21:26] VITALS: BP 142/72; PULSE 72; RESP 18; TEMP 36.6; O2SAT 91
--- NOTE | 2018-12-23 22:24 | NURSING ---
O2 sats 89-90% on RA. O2 at 2L applied. Sats now 95% on 2L. Denies resp distress, no s&s of resp distress
[2018-12-24] MEDS: Acetaminophen 500 MG Tablet 1000 MG PO ×3 (05:39→21:37)
[2018-12-24] MEDS: oxyCODONE 5 MG Tablet 10 MG PO ×3 (05:39→21:36)
--- NOTE | 2018-12-24 06:46 | NURSING ---
9 stables removed as per order, pt tolerated procedure well. scant amt of drainage was noted area cleansed and dsd reapplied to incision
[2018-12-24] MEDS: Nystatin Powder 15gm Bottle 1 APPLIC TOPICAL ×2 (06:53→15:09)
[2018-12-24 07:49] VITALS: BP 127/76; PULSE 63; RESP 18; TEMP 36.4; O2SAT 95
[2018-12-24] MEDS: Folic Acid 1 MG Tablet PO (09:58)
[2018-12-24] MEDS: Magnesium Oxide 400 MG Tablet PO (09:58)
[2018-12-24] MEDS: Calcium (Elemental) 500 MG Tablet 1000 MG PO (09:59)
[2018-12-24] MEDS: Hydroxychloroquine 200 MG Tablet PO ×2 (09:59→17:43)
[2018-12-24] MEDS: Methotrexate 2.5 MG Tablet 20 MG PO (09:59)
[2018-12-24] MEDS: Carvedilol 25 MG Tablet PO ×2 (10:00→21:37)
[2018-12-24] MEDS: Meloxicam 7.5 MG Tablet PO ×2 (10:00→21:37)
[2018-12-24] MEDS: Amiodarone 200 MG Tablet PO (10:00)
[2018-12-24] MEDS: Losartan Potassium 100 MG Tablet PO (10:00)
[2018-12-24] MEDS: Polyethylene Glycol 3350 17 GM PACKET PO (10:00)
[2018-12-24] MEDS: hydroCHLOROthiazide 25 MG Tablet PO (10:00)
[2018-12-24] MEDS: Pantoprazole Sodium 40 MG Tablet PO (10:01)
--- NOTE | 2018-12-24 10:43 | PCM.PN.NEU ---
Patient Problems: Active and Suspected Problems (Last Reviewed 11/08/18 @ 14:38 by Felipe Harley MD) Debility (Acute) Fall (Acute) Subjective: Mr. Huerta continues to ask about his nonweightbearing status. We again discussed that this would ultimately be up to Dr. Zhu and he will be updated when he has his scheduled appointment. Otherwise he is tolerating therapies no other complaints. - Physical Exam General: Alert, Oriented x3, Cooperative, No apparent distress Psych/Mental Status: Normal Affect Vital Signs Temp Pulse Resp BP Pulse Ox 36.4 C L 63 18 127/76 H 95 12/24/18 07:49 12/24/18 07:49 12/24/18 07:49 12/24/18 07:49 12/24/18 07:49 Oxygen Delivery Method Room Air Weight: 132.6 kg Body Mass Index (BMI) 37.6 Intake and Output for Last 24 Hours 12/22/18 12/23/18 12/24/18 23:59 23:59 23:59 Intake Total 600 / 600 Balance 600 / 600 Current Medications Generic Name Dose Route Start Last Admin Trade Name Freq PRN Reason Stop Dose Admin Acetaminophen 1,000 mg 12/13/18 22:00 12/24/18 05:39 Tylenol PO 1,000 mg Q8 [facility] Administration Amiodarone HCl 200 mg 12/14/18 10:00 12/24/18 10:00 Cordarone PO 200 mg DAILY [facility] Administration Bisacodyl 10 mg 12/13/18 17:05 Dulcolax RECTAL .PRN X 1 PRN Constipation Calcium Carbonate 1,000 mg 12/14/18 08:00 12/24/18 09:59 Os-Emmanuel 500 PO 1,000 mg DAILY@0800 [facility] Administration Carvedilol 25 mg 12/13/18 22:00 12/24/18 10:00 Coreg PO 25 mg BID [facility] Administration Cholecalciferol 2,000 unit 12/14/18 08:00 12/24/18 10:00 Vitamin D PO 2,000 unit DAILY@0800 [facility] Administration Folic Acid 1 mg 12/14/18 08:00 12/24/18 09:58 Folic Acid PO 1 mg DAILYCM [facility] Administration Hydrochlorothiazide 25 mg 12/14/18 10:00 12/24/18 10:00 Hctz PO 25 mg DAILY [facility] Administration Hydroxychloroquine Sulfate 200 mg 12/14/18 08:00 12/24/18 09:59 Plaquenil PO 200 mg BIDCM [facility] Administration Losartan Potassium 100 mg 12/14/18 10:00 12/24/18 10:00 Cozaar PO 100 mg DAILY [facility] Administration Magnesium Hydroxide 30 ml 12/13/18 17:05 Milk Of Magnesia PO .PRN X 1 PRN Constipation Magnesium Oxide 400 mg 12/14/18 08:00 12/24/18 09:58 Mag-Ox 400 PO 400 mg DAILYCM [facility] Administration Meloxicam 7.5 mg 12/13/18 22:00 12/24/18 10:00 Mobic PO 7.5 mg BID [facility] Administration Methotrexate 20 mg 12/17/18 08:00 12/24/18 09:59 Methotrexate PO 20 mg Mo@0800 [facility] Administration Nystatin 1 applic 12/13/18 22:00 12/24/18 06:53 Mycostatin Powder TOPICAL 1 applicatio TID [facility] Administration Protocol Oxycodone HCl 10 mg 12/13/18 17:26 12/24/18 10:23 Oxyir PO 10 mg Q4H PRN PRN Administration Moderate Pain (pain scale 4-5) Pantoprazole Sodium 40 mg 12/14/18 10:00 12/24/18 10:01 Protonix PO 40 mg DAILY [facility] Administration Polyethylene Glycol 17 gm 12/14/18 10:00 12/24/18 10:00 Miralax PO 17 gm DAILY [facility] Administration Rivaroxaban 20 mg 12/13/18 17:00 12/23/18 16:29 Xarelto PO 20 mg DAILY@1700 [facility] Administration Senna/Docusate Sodium 2 tablet 12/13/18 22:00 12/24/18 10:01 Senokot-S, Yuliet-Colace PO Not Given BID [facility] Medical Necessity - Tobacco Use Smoking Status: Never smoker Assessment/Plan All Active Problems (Last Reviewed 11/08/18 @ 14:38 by Felipe Harley MD) Hip fracture, left (Acute) Debility (Acute) Fall (Acute) Small bowel obstruction (Acute) Atrial fibrillation (Acute) Per notes: The patient is a 78 year old M with PMH of HTN, RA, new onset A. fib (on Xarelto), recent admission for small bowel obstruction admitted to [facility] inpatient rehab unit on 12/13/2018 with debility S/P mechanical fall, found to have impacted nondisplaced subcapital fracture of left hip and is S/P closed reduction with pinning of left hip by Dr. Zhu on 12/10/2018, for greater than 3 hours therapy daily with the aim of returning back home at or near his prior level of functional independence. Per patient he had a mechanical fall at home while walking with his cane. He lives with his , uses cane and a Rollator to ambulate, denies any frequent falls, does drive and does not need any assistance for his ADLs. He lives in [place], and has 2-3 steps going into the house. Per patient he has a history of RA and is on methotrexate 2.5 mg 8 tablets once weekly for the same. At present patient denies any new onset of headache, dizziness, visual disturbances, speech disturbances, new onset focal motor weakness or sensory loss. Impression: Debility status post small bowel obstruction, mechanical fall, left hip fracture status post ORIF in this previously functionally independent male. Goal of therapy is yazdanism of prior level of functional independence. Plan ?PT for gait stability and balance ?OT for ADLs ?Analgesics as needed. Will monitor his new left hip pain after he fell but this appears to be stable and x-rays were negative. Does not want further analgesics. ?Bowel protocol. 12/20: Stable, no further constipation ?Check a repeat x-ray of left hip as over the weekend patient is back on the commode while using the same, following which he had some ecchymosis around the left hip. Per nursing staff over the weekend Dr. Colon's office was notified but will again notify orthopedic surgery Dr. Zhu's office following x-ray hip. 12/21: Hip pain is improved. ?Left left hip fracture, S/P closed reduction with pinning of the left hip by Dr. Zhu on 12/10/2018?per surgery recommendation partial weightbearing. Further management of left hip fracture per orthopedic surgery recommendation. Further postsurgical management of left hip fracture per orthopedic surgery recommendation. 12/20: Stable, improved pain. 12/21: Improved, maintain toe-touch weightbearing status ?HTN?Coreg 25 mg p.o. twice daily, hydrochlorthiazide 25 mg daily, losartan 100 mg p.o. daily ?A. fib?on amiodarone and Xarelto 20 mg once daily. 12/20: Stable ?RA?on methotrexate 2.5 mg p.o. 8 tablets once a week, on folic acid and on Plaquenil 200 mg p.o. twice daily ?GI/DVT prophylaxis?on pantoprazole and Xarelto 20 mg p.o. once daily ?Fall precautions ?Further medical management per hospitalist recommendation. Hospitalist consult prior to going home. ?Follow-up with PCP and orthopedic surgeon as an outpatient following discharge. Ultimately he continues to make improvements however he may need an intermediate step
--- NOTE | 2018-12-24 10:46 | PN.NEURO_ITS ---
Patient Problems: Active and Suspected Problems (Last Reviewed 11/08/18 @ 14:38 by Felipe Harley MD) Debility (Acute) Fall (Acute) Subjective: Mr. Huerta continues to ask about his nonweightbearing status. We again discussed that this would ultimately be up to Dr. Zhu and he will be updated when he has his scheduled appointment. Otherwise he is tolerating therapies no other complaints. - Physical Exam General: Alert, Oriented x3, Cooperative, No apparent distress Psych/Mental Status: Normal Affect Vital Signs Temp Pulse Resp BP Pulse Ox 36.4 C L 63 18 127/76 H 95 12/24/18 07:49 12/24/18 07:49 12/24/18 07:49 12/24/18 07:49 12/24/18 07:49 Oxygen Delivery Method Room Air Weight: 132.6 kg Body Mass Index (BMI) 37.6 Intake and Output for Last 24 Hours 12/22/18 12/23/18 12/24/18 23:59 23:59 23:59 Intake Total 600 / 600 Balance 600 / 600 Current Medications Generic Name Dose Route Start Last Admin Trade Name Freq PRN Reason Stop Dose Admin Acetaminophen 1,000 mg 12/13/18 22:00 12/24/18 05:39 Tylenol PO 1,000 mg Q8 [facility] Administration Amiodarone HCl 200 mg 12/14/18 10:00 12/24/18 10:00 Cordarone PO 200 mg DAILY [facility] Administration Bisacodyl 10 mg 12/13/18 17:05 Dulcolax RECTAL .PRN X 1 PRN Constipation Calcium Carbonate 1,000 mg 12/14/18 08:00 12/24/18 09:59 Os-Emmanuel 500 PO 1,000 mg DAILY@0800 [facility] Administration Carvedilol 25 mg 12/13/18 22:00 12/24/18 10:00 Coreg PO 25 mg BID [facility] Administration Cholecalciferol 2,000 unit 12/14/18 08:00 12/24/18 10:00 Vitamin D PO 2,000 unit DAILY@0800 [facility] Administration Folic Acid 1 mg 12/14/18 08:00 12/24/18 09:58 Folic Acid PO 1 mg DAILYCM [facility] Administration Hydrochlorothiazide 25 mg 12/14/18 10:00 12/24/18 10:00 Hctz PO 25 mg DAILY [facility] Administration Hydroxychloroquine Sulfate 200 mg 12/14/18 08:00 12/24/18 09:59 Plaquenil PO 200 mg BIDCM [facility] Administration Losartan Potassium 100 mg 12/14/18 10:00 12/24/18 10:00 Cozaar PO 100 mg DAILY [facility] Administration Magnesium Hydroxide 30 ml 12/13/18 17:05 Milk Of Magnesia PO .PRN X 1 PRN Constipation Magnesium Oxide 400 mg 12/14/18 08:00 12/24/18 09:58 Mag-Ox 400 PO 400 mg DAILYCM [facility] Administration Meloxicam 7.5 mg 12/13/18 22:00 12/24/18 10:00 Mobic PO 7.5 mg BID [facility] Administration Methotrexate 20 mg 12/17/18 08:00 12/24/18 09:59 Methotrexate PO 20 mg Mo@0800 [facility] Administration Nystatin 1 applic 12/13/18 22:00 12/24/18 06:53 Mycostatin Powder TOPICAL 1 applicatio TID [facility] Administration Protocol Oxycodone HCl 10 mg 12/13/18 17:26 12/24/18 10:23 Oxyir PO 10 mg Q4H PRN PRN Administration Moderate Pain (pain scale 4-5) Pantoprazole Sodium 40 mg 12/14/18 10:00 12/24/18 10:01 Protonix PO 40 mg DAILY [facility] Administration Polyethylene Glycol 17 gm 12/14/18 10:00 12/24/18 10:00 Miralax PO 17 gm DAILY [facility] Administration Rivaroxaban 20 mg 12/13/18 17:00 12/23/18 16:29 Xarelto PO 20 mg DAILY@1700 [facility] Administration Senna/Docusate Sodium 2 tablet 12/13/18 22:00 12/24/18 10:01 Senokot-S, Yuliet-Colace PO Not Given BID [facility] Medical Necessity - Tobacco Use Smoking Status: Never smoker Assessment/Plan All Active Problems (Last Reviewed 11/08/18 @ 14:38 by Felipe Harley MD) Hip fracture, left (Acute) Debility (Acute) Fall (Acute) Small bowel obstruction (Acute) Atrial fibrillation (Acute) Per notes: The patient is a 78 year old M with PMH of HTN, RA, new onset A. fib (on Xarelto), recent admission for small bowel obstruction admitted to [facility] inpatient rehab unit on 12/13/2018 with debility S/P mechanical fall, found to have impacted nondisplaced subcapital fracture of left hip and is S/P closed reduction with pinning of left hip by Dr. Zhu on 12/10/2018, for greater than 3 hours therapy daily with the aim of returning back home at or near his prior level of functional independence. Per patient he had a mechanical fall at home while walking with his cane. He lives with his , uses cane and a Rollator to ambulate, denies any frequent falls, does drive and does not need any assistance for his ADLs. He lives in a [place] house, and has 2-3 steps going into the house. Per patient he has a history of RA and is on methotrexate 2.5 mg 8 tablets once weekly for the same. At present patient denies any new onset of headache, dizziness, visual disturbances, speech disturbances, new onset focal motor weakness or sensory loss. Impression: Debility status post small bowel obstruction, mechanical fall, left hip fracture status post ORIF in this previously functionally independent male. Goal of therapy is mandaeism of prior level of functional independence. Plan ?PT for gait stability and balance ?OT for ADLs ?Analgesics as needed. Will monitor his new left hip pain after he fell but this appears to be stable and x-rays were negative. Does not want further analgesics. ?Bowel protocol. 12/20: Stable, no further constipation ?Check a repeat x-ray of left hip as over the weekend patient is back on the commode while using the same, following which he had some ecchymosis around the left hip. Per nursing staff over the weekend Dr. Colon's office was notified but will again notify orthopedic surgery Dr. Zhu's office following x-ray hip. 12/21: Hip pain is improved. ?Left left hip fracture, S/P closed reduction with pinning of the left hip by Dr. Zhu on 12/10/2018?per surgery recommendation partial weightbearing. Further management of left hip fracture per orthopedic surgery recommendation. Further postsurgical management of left hip fracture per orthopedic surgery recommendation. 12/20: Stable, improved pain. 12/21: Improved, maintain toe-touch weightbearing status ?HTN?Coreg 25 mg p.o. twice daily, hydrochlorthiazide 25 mg daily, losartan 100 mg p.o. daily ?A. fib?on amiodarone and Xarelto 20 mg once daily. 12/20: Stable ?RA?on methotrexate 2.5 mg p.o. 8 tablets once a week, on folic acid and on Plaquenil 200 mg p.o. twice daily ?GI/DVT prophylaxis?on pantoprazole and Xarelto 20 mg p.o. once daily ?Fall precautions ?Further medical management per hospitalist recommendation. Hospitalist consult prior to going home. ?Follow-up with PCP and orthopedic surgeon as an outpatient following discharge. Ultimately he continues to make improvements however he may need an intermediate step
[2018-12-24] MEDS: Rivaroxaban 20 MG Tablet PO (17:42)
[2018-12-24 20:37] VITALS: BP 164/84; PULSE 80; RESP 16; TEMP 36.6; O2SAT 92
[2018-12-24] MEDS: Senna/Docusate Sodium 1 Tablet 2 TABLET PO (21:37)
[2018-12-25] MEDS: oxyCODONE 5 MG Tablet 10 MG PO ×3 (06:23→21:52)
[2018-12-25] MEDS: Acetaminophen 500 MG Tablet 1000 MG PO ×3 (06:24→21:51)
[2018-12-25] MEDS: Nystatin Powder 15gm Bottle 1 APPLIC TOPICAL ×3 (06:25→21:52)
[2018-12-25 08:21] VITALS: BP 118/72; PULSE 66; RESP 16; TEMP 36.4; O2SAT 92
[2018-12-25] MEDS: Polyethylene Glycol 3350 17 GM PACKET PO (08:57)
[2018-12-25] MEDS: hydroCHLOROthiazide 25 MG Tablet PO (08:57)
[2018-12-25] MEDS: Folic Acid 1 MG Tablet PO (08:57)
[2018-12-25] MEDS: Losartan Potassium 100 MG Tablet PO (08:57)
[2018-12-25] MEDS: Pantoprazole Sodium 40 MG Tablet PO (08:57)
[2018-12-25] MEDS: Hydroxychloroquine 200 MG Tablet PO ×2 (08:58→17:03)
[2018-12-25] MEDS: Magnesium Oxide 400 MG Tablet PO (08:58)
[2018-12-25] MEDS: Amiodarone 200 MG Tablet PO (08:58)
[2018-12-25] MEDS: Carvedilol 25 MG Tablet PO ×2 (08:58→21:52)
[2018-12-25] MEDS: Calcium (Elemental) 500 MG Tablet 1000 MG PO (08:58)
[2018-12-25] MEDS: Meloxicam 7.5 MG Tablet PO ×2 (08:59→21:52)
[2018-12-25] MEDS: Senna/Docusate Sodium 1 Tablet 2 TABLET PO ×2 (09:01→21:51)
--- NOTE | 2018-12-25 11:23 | PN.NEURO_ITS ---
Patient Problems: Active and Suspected Problems (Last Reviewed 11/08/18 @ 14:38 by Felipe Harley MD) Debility (Acute) Fall (Acute) Subjective: New complaints. He continues to be dissatisfied with his nonweightbearing status however therapy notes that he is able to utilize the parallel bars with modifications. He says he still has hip pain on the left when he is supine. No new complaints otherwise. - Physical Exam General: Alert, Oriented x3, Cooperative, No apparent distress Neurological: Cranial nerves II-XII grossly intact Psych/Mental Status: Normal Affect, Alert and oriented to time, place, person, mood and affect Vital Signs Temp Pulse Resp BP Pulse Ox 36.4 C L 66 16 118/72 92 12/25/18 08:21 12/25/18 08:21 12/25/18 08:21 12/25/18 08:21 12/25/18 08:21 Oxygen Delivery Method Room Air Weight: 132.6 kg Body Mass Index (BMI) 37.6 Intake and Output for Last 24 Hours 12/23/18 12/24/18 12/25/18 23:59 23:59 23:59 Intake Total 520 / 520 Balance 520 / 520 Medical Necessity - Tobacco Use Smoking Status: Never smoker Assessment/Plan All Active Problems (Last Reviewed 11/08/18 @ 14:38 by Felipe Harley MD) Hip fracture, left (Acute) Debility (Acute) Fall (Acute) Small bowel obstruction (Acute) Atrial fibrillation (Acute) Per notes: The patient is a 78 year old M with PMH of HTN, RA, new onset A. 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 Zhu on 12/10/2018, for greater than 3 hours therapy daily with the aim of returning back home at or near his prior level of functional independence. Per patient he had a mechanical fall at home while walking with his cane. He lives with his , uses cane and a Rollator to ambulate, denies any frequent falls, does drive and does not need any assistance for his ADLs. He lives in a ranch house, and has 2-3 steps going into the house. Per patient he has a history of RA and is on methotrexate 2.5 mg 8 tablets once weekly for the same. At present patient denies any new onset of headache, dizziness, visual disturbances, speech disturbances, new onset focal motor weakness or sensory loss. Impression: Debility status post small bowel obstruction, mechanical fall, left hip fracture status post ORIF in this previously functionally independent male. Goal of therapy is restorationism of prior level of functional independence. Plan ?PT for gait stability and balance ?OT for ADLs ?Analgesics as needed. Will monitor his new left hip pain after he fell but this appears to be stable and x-rays were negative. Does not want further analgesics. 12/25: Stable ?Bowel protocol. 12/20: Stable, no further constipation ?Check a repeat x-ray of left hip as over the weekend patient is back on the commode while using the same, following which he had some ecchymosis around the left hip. Per nursing staff over the weekend Dr. Colon's office was notified but will again notify orthopedic surgery Dr. Zhu's office following x-ray hip. 12/21: Hip pain is improved. 12/25: Stable ?Left left hip fracture, S/P closed reduction with pinning of the left hip by Dr. Zhu on 12/10/2018?per surgery recommendation partial weightbearing. Further management of left hip fracture per orthopedic surgery recommendation. Further postsurgical management of left hip fracture per orthopedic surgery recommendation. 12/20: Stable, improved pain. 12/21: Improved, maintain toe-touch weightbearing status ?HTN?Coreg 25 mg p.o. twice daily, hydrochlorthiazide 25 mg daily, losartan 100 mg p.o. daily 12/25: Controlled ?A. fib?on amiodarone and Xarelto 20 mg once daily. 12/20: Stable ?RA?on methotrexate 2.5 mg p.o. 8 tablets once a week, on folic acid and on Plaq uenil 200 mg p.o. twice daily ?GI/DVT prophylaxis?on pantoprazole and Xarelto 20 mg p.o. once daily ?Fall precautions ?Further medical management per hospitalist recommendation. Hospitalist consult prior to going home. ?Follow-up with PCP and orthopedic surgeon as an outpatient following discharge. Ultimately he continues to make improvements however he may need an intermediate convalescence step
--- NOTE | 2018-12-25 16:59 | CASEMGMT ---
Social Work Met with patient and patient family. Patient reporting to have chosen [facility] as first option for SNF at time of discharge and that a wheelchair van will need to be set up for transportation. Patient and patient aware that referral to [facility] will be made tomorrow, 12/26/18 as it is now later in the day. This social psychologist to get back to patient/patient family on outcome of referral to [facility]. Patient to be teamed on 12/27/18. Support given. Will continue to follow. Danielle AUSTIN, SABRINA
[2018-12-25] MEDS: Rivaroxaban 20 MG Tablet PO (17:03)
[2018-12-25 22:00] VITALS: BP 120/69; PULSE 72; PULSE 76; RESP 17; RESP 18; TEMP 36.5; O2SAT 95
--- NOTE | 2018-12-26 05:08 | NURSING ---
pt feeling concern re:no bm since Monday. Pt refused MOM at this time. Pt sitting on BSC but just passing gas.
[2018-12-26] MEDS: Acetaminophen 500 MG Tablet 1000 MG PO ×3 (05:13→20:42)
[2018-12-26] MEDS: Magnesium Hydroxide 30 ML UDC PO (05:14)
[2018-12-26] MEDS: Nystatin Powder 15gm Bottle 1 APPLIC TOPICAL ×3 (05:28→20:43)
--- NOTE | 2018-12-26 06:16 | NURSING ---
Pt refused FELIX wraps application this a.m. FELIX wraps are ordered and pt refused.
[2018-12-26 08:00] VITALS: BP 122/59; PULSE 71; RESP 18; TEMP 36.8; O2SAT 95
[2018-12-26] MEDS: Hydroxychloroquine 200 MG Tablet PO ×2 (08:28→17:11)
[2018-12-26] MEDS: oxyCODONE 5 MG Tablet 10 MG PO (08:28)
[2018-12-26] MEDS: Folic Acid 1 MG Tablet PO (08:28)
[2018-12-26] MEDS: Losartan Potassium 100 MG Tablet PO (08:28)
[2018-12-26] MEDS: Amiodarone 200 MG Tablet PO (08:28)
[2018-12-26] MEDS: Calcium (Elemental) 500 MG Tablet 1000 MG PO (08:29)
[2018-12-26] MEDS: Pantoprazole Sodium 40 MG Tablet PO (08:29)
[2018-12-26] MEDS: hydroCHLOROthiazide 25 MG Tablet PO (08:29)
[2018-12-26] MEDS: Magnesium Oxide 400 MG Tablet PO (08:29)
[2018-12-26] MEDS: Meloxicam 7.5 MG Tablet PO ×2 (08:29→20:43)
[2018-12-26] MEDS: Carvedilol 25 MG Tablet PO ×2 (08:30→20:43)
--- NOTE | 2018-12-26 14:00 | CASEMGMT ---
Social Work Telephone call to Denise Ricci. This licensed clinical social worker making referral for Monday admission, 12/29/18. Clinical information faxed. Denise to get back to this licensed clinical social worker. Transfer to extended care form initiated. Danielle AUSTIN, SABRINA
--- NOTE | 2018-12-26 16:22 | CASEMGMT ---
Social Work Telephone call from Denise Ricci. Denise voicing to be able to accept patient on 12/29/18 under skilled care. Telephone jeremias to [facility]. Transportation set up via wheelchair van for 12/29/18 at 1:00pm per patient/patient family request. Transportation form completed and will be placed with patient discharge information. Spoke with patient in room. Patient agreeable to all discharge planning. Support given. Proposed discharge date: 12/29/18 PLAN: Discharge to [facility]. Danielle AUSTIN, SABRINA
[2018-12-26] MEDS: Rivaroxaban 20 MG Tablet PO (17:11)
[2018-12-26 19:14] VITALS: BP 125/61; PULSE 75; RESP 16; TEMP 36.4; O2SAT 96
[2018-12-26] MEDS: Senna/Docusate Sodium 1 Tablet 2 TABLET PO (20:42)
[2018-12-27] MEDS: Nystatin Powder 15gm Bottle 1 APPLIC TOPICAL ×3 (06:47→22:09)
[2018-12-27] MEDS: Acetaminophen 500 MG Tablet 1000 MG PO ×3 (06:47→22:08)
[2018-12-27 07:21] VITALS: BP 120/69; PULSE 69; RESP 12; TEMP 36.4; O2SAT 92
[2018-12-27] MEDS: hydroCHLOROthiazide 25 MG Tablet PO (07:33)
[2018-12-27] MEDS: Losartan Potassium 100 MG Tablet PO (07:33)
[2018-12-27] MEDS: Polyethylene Glycol 3350 17 GM PACKET PO (07:33)
[2018-12-27] MEDS: Senna/Docusate Sodium 1 Tablet 2 TABLET PO ×2 (07:33→22:09)
[2018-12-27] MEDS: Meloxicam 7.5 MG Tablet PO ×2 (07:33→22:10)
[2018-12-27] MEDS: Pantoprazole Sodium 40 MG Tablet PO (07:33)
[2018-12-27] MEDS: Magnesium Oxide 400 MG Tablet PO (07:34)
[2018-12-27] MEDS: Calcium (Elemental) 500 MG Tablet 1000 MG PO (07:34)
[2018-12-27] MEDS: Folic Acid 1 MG Tablet PO (07:34)
[2018-12-27] MEDS: Hydroxychloroquine 200 MG Tablet PO ×2 (07:34→17:12)
[2018-12-27] MEDS: Carvedilol 25 MG Tablet PO ×2 (07:34→22:10)
[2018-12-27] MEDS: Amiodarone 200 MG Tablet PO (07:34)
[2018-12-27] MEDS: oxyCODONE 5 MG Tablet 10 MG PO ×2 (07:38→12:08)
--- NOTE | 2018-12-27 09:46 | PN.NEURO_ITS ---
Patient Problems: Active and Suspected Problems (Last Reviewed 11/08/18 @ 14:38 by Felipe Harley MD) Debility (Acute) Fall (Acute) Subjective: No new complaints. Tolerating therapies. Staffed in team meeting. He continues to do well, he remains toe-touch weightbearing on the left and is able to negotiate the parallel bars for 40 feet on several occasions. He is max assist with occupational therapy measures with lower body care. Doing well from a nursing standpoint plan for discharge on Friday 12/29. - Physical Exam General: Alert, Oriented x3, Cooperative, No apparent distress Neurological: Cranial nerves II-XII grossly intact Psych/Mental Status: Normal Affect, Alert and oriented to time, place, person, mood and affect Vital Signs Temp Pulse Resp BP Pulse Ox 36.4 C L 69 12 120/69 92 12/27/18 07:21 12/27/18 07:21 12/27/18 07:21 12/27/18 07:21 12/27/18 07:21 Oxygen Delivery Method Room Air Weight: 131.27 kg Body Mass Index (BMI) 37.6 Intake and Output for Last 24 Hours 12/25/18 12/26/18 12/27/18 23:59 23:59 23:59 Intake Total 520 / 520 960 / 960 Balance 520 / 520 960 / 960 Current Medications Generic Name Dose Route Start Last Admin Trade Name Freq PRN Reason Stop Dose Admin Acetaminophen 1,000 mg 12/13/18 22:00 12/27/18 06:47 Tylenol PO 1,000 mg Q8 JAVAN Administration Amiodarone HCl 200 mg 12/14/18 10:00 12/27/18 07:34 Cordarone PO 200 mg DAILY JAVAN Administration Bisacodyl 10 mg 12/13/18 17:05 Dulcolax RECTAL .PRN X 1 PRN Constipation Calcium Carbonate 1,000 mg 12/14/18 08:00 12/27/18 07:34 Os-Emmanuel 500 PO 1,000 mg DAILY@0800 JAVAN Administration Carvedilol 25 mg 12/13/18 22:00 12/27/18 07:34 Coreg PO 25 mg BID JAVAN Administration Cholecalciferol 2,000 unit 12/14/18 08:00 12/27/18 07:34 Vitamin D PO 2,000 unit DAILY@0800 [facility] Administration Folic Acid 1 mg 12/14/18 08:00 12/27/18 07:34 Folic Acid PO 1 mg DAILYCM JAVAN Administration Hydrochlorothiazide 25 mg 12/14/18 10:00 12/27/18 07:33 Hctz PO 25 mg DAILY JAVAN Administration Hydroxychloroquine Sulfate 200 mg 12/14/18 08:00 12/27/18 07:34 Plaquenil PO 200 mg BID JAVAN Administration Losartan Potassium 100 mg 12/14/18 10:00 12/27/18 07:33 Cozaar PO 100 mg DAILY JAVAN Administration Magnesium Hydroxide 30 ml 12/13/18 17:05 12/26/18 05:14 Milk Of Magnesia PO 30 ml .PRN X 1 PRN Administration Constipation Magnesium Oxide 400 mg 12/14/18 08:00 12/27/18 07:34 Mag-Ox 400 PO 400 mg DAILY JAVAN Administration Meloxicam 7.5 mg 12/13/18 22:00 12/27/18 07:33 Mobic PO 7.5 mg BID JAVAN Administration Methotrexate 20 mg 12/17/18 08:00 12/24/18 09:59 Methotrexate PO 20 mg Mo@0800 JAVAN Administration Nystatin 1 applic 12/13/18 22:00 12/27/18 06:47 Mycostatin Powder TOPICAL 1 applicatio TID [facility] Administration Protocol Oxycodone HCl 10 mg 12/13/18 17:26 12/27/18 07:38 Oxyir PO 10 mg Q4H PRN PRN Administration Moderate Pain (pain scale 4-5) Pantoprazole Sodium 40 mg 12/14/18 10:00 12/27/18 07:33 Protonix PO 40 mg DAILY JAVAN Administration Polyethylene Glycol 17 gm 12/14/18 10:00 12/27/18 07:33 Miralax PO 17 gm DAILY JAVAN Administration Rivaroxaban 20 mg 12/13/18 17:00 12/26/18 17:11 Xarelto PO 20 mg DAILY@1700 [facility] Administration Senna/Docusate Sodium 2 tablet 12/13/18 22:00 12/27/18 07:33 Senokot-S, Yuliet-Colace PO 2 tablet BID JAVAN Administration Medical Necessity - Tobacco Use Smoking Status: Never smoker Assessment/Plan All Active Problems (Last Reviewed 11/08/18 @ 14:38 by Felipe Harley MD) Hip fracture, left (Acute) Debility (Acute) Fall (Acute) Small bowel obstruction (Acute) Atrial fibrillation (Acute) Per notes: The patient is a 78 year old M with PMH of HTN, RA, new onset A. fib (on Xarelto), recent admission for small bowel obstruction admitted to [facility] inpatient rehab unit on 12/13/2018 with debility S/P mechanical fall, found to have impacted nondisplaced subcapital fracture of left hip and is S/P closed reduction with pinning of left hip by Dr. Zhu on 12/10/2018, for greater than 3 hours therapy daily with the aim of returning back home at or near his prior level of functional independence. Per patient he had a mechanical fall at home while walking with his cane. He lives with his , uses cane and a Rollator to ambulate, denies any frequent falls, does drive and does not need any assistance for his ADLs. He lives in a ranch house, and has 2-3 steps going into the house. Per patient he has a history of RA and is on methotrexate 2.5 mg 8 tablets once weekly for the same. At present patient denies any new onset of headache, dizziness, visual disturbances, speech disturbances, new onset focal motor weakness or sensory loss. Impression: Debility status post small bowel obstruction, mechanical fall, left hip fracture status post ORIF in this previously functionally independent male. Goal of therapy is jain of prior level of functional independence. Plan ?PT for gait stability and balance ?OT for ADLs ?Analgesics as needed. Will monitor his new left hip pain after he fell but this appears to be stable and x-rays were negative. Does not want further analgesics. 12/25: Stable ?Bowel protocol. 12/20: Stable, no further constipation ?Check a repeat x-ray of left hip as over the weekend patient is back on the commode while using the same, following which he had some ecchymosis around the left hip. Per nursing staff over the weekend Dr. Colon's office was notified but will again notify orthopedic surgery Dr. Zhu's office following x-ray hip. 12/21: Hip pain is improved. 12/25: Stable ?Left left hip fracture, S/P closed reduction with pinning of the left hip by Dr. Zhu on 12/10/2018?per surgery recommendation partial weightbearing. Further management of left hip fracture per orthopedic surgery recommendation. Further postsurgical management of left hip fracture per orthopedic surgery recommendation. 12/20: Stable, improved pain. 12/21: Improved, maintain toe-touch weightbearing status ?HTN?Coreg 25 mg p.o. twice daily, hydrochlorthiazide 25 mg daily, losartan 100 mg p.o. daily 12/25: Controlled ?A. fib?on amiodarone and Xarelto 20 mg once daily. 12/20: Stable ?RA?on methotrexate 2.5 mg p.o. 8 tablets once a week, on folic acid and on Plaquenil 200 mg p.o. twice daily ?GI/DVT prophylaxis?on pantoprazole and Xarelto 20 mg p.o. once daily ?Fall precautions ?Further medical management per hospitalist recommendation. Hospitalist consult prior to going home. ?Follow-up with PCP and orthopedic surgeon as an outpatient following discharge. Ultimately he continues to make improvements however he may need an intermediate convalescence step: [facility] 12[facility]
--- NOTE | 2018-12-27 10:45 | PCM.RU.DC ---
Rehab Discharge Summary DATE OF ADMISSION: 12/13/18 DATE OF DISCHARGE: 12/29/18 - Rehab Diagnosis Debility status post left hip fracture, ORIF Patient Problems: Active and Suspected Problems (Last Reviewed 11/08/18 @ 14:38 by Felipe Harley MD) Debility (Acute) Fall (Acute) - Physical Exam General: Alert, Oriented x3, Cooperative, No apparent distress HEENT: Atraumatic, PERRLA, EOMI Lungs: Clear to auscultation Cardiovascular: Regular rate Abdomen: Bowel Sounds Present Extremities: No Calf Tenderness Neurological: Cranial nerves II-XII grossly intact Psych/Mental Status: Normal Affect, Alert and oriented to time, place, person, mood and affect Vital Signs Temp Pulse Resp BP Pulse Ox 36.4 C L 69 12 120/69 92 12/27/18 07:21 12/27/18 07:21 12/27/18 07:21 12/27/18 07:21 12/27/18 07:21 Oxygen Delivery Method Room Air Weight: 131.27 kg Body Mass Index (BMI) 37.6 Intake and Output for Last 24 Hours 12/25/18 12/26/18 12/27/18 23:59 23:59 23:59 Intake Total 520 / 520 960 / 960 Balance 520 / 520 960 / 960 Discharge Diet: No Restrictions Discharge Activity: Return to Normal Activity, May Not Drive Weight Bearing Status: Toe touch weight bearing Lifting Restrict to (lbs):: 10 Home Medications: Medications to take at Discharge RX: Folic Acid 1 mg PO DAILY 11/07/18 RX: Hydroxychloroquine [Plaquenil] 200 mg PO BID 11/07/18 RX: Losartan/Hydrochlorothiazide [Losartan-Hctz 100-25 mg Tab] 1 tab PO DAILY 11/07/18 RX: Meloxicam 7.5 mg PO BID 11/07/18 RX: Methotrexate 8 tab PO MO 11/07/18 RX: Omeprazole 40 mg PO DAILY 11/07/18 RX: Acetaminophen [Tylenol] 1,000 mg PO Q8 12/13/18 RX: Amiodarone HCl [Cordarone] 200 mg PO DAILY 12/13/18 RX: Calcium (Elemental) [Os-Emmanuel 500] 1,000 mg PO DAILY@0800 12/13/18 RX: Carvedilol [Coreg (Beta Tressa)] 25 mg PO BID 12/13/18 RX: Cholecalciferol (VIT D3) [Vitamin D3] 2,000 unit PO DAILY@0800 12/13/18 RX: Magnesium Oxide [Mag-Ox 400] 400 mg PO DAILYCM 12/13/18 RX: Nystatin Powder [Mycostatin Powder] 1 applic TOPICAL TID 12/13/18 RX: Polyethylene Glycol 3350 [Miralax] 17 gm PO DAILY 12/13/18 RX: Rivaroxaban [Xarelto] 20 mg PO DAILY 12/13/18 RX: Oxycodone [Oxyir] 10 mg PO Q4H PRN PRN 7 Days #30 tab 12/27/18 RX: Senna/Docusate Sodium [Senokot-S] 2 tablet PO BID tablet 12/27/18 Following Prescrptions Were Given to Patient: RX: Oxycodone [Oxyir] 10 mg PO Q4H PRN PRN 7 Days #30 tab PRN Reason: Moderate Pain (pain scale 4-5) Primary Care Physician: Cely Kang,Out of [Primary Care Provider] - Please Follow Up With: Dr Zhu Disposition: Group Home facility Minutes spent on discharge:: 40 Patient Condition:: Good Rehab Course The patient is a 78 year old M [] Meaningful Use Info Meaningful Use Diagnoses (Choose all that apply): None applicable
--- NOTE | 2018-12-27 10:49 | DS.PCM_ITS ---
Rehab Discharge Summary DATE OF ADMISSION: 12/13/18 DATE OF DISCHARGE: 12/29/18 - Rehab Diagnosis Debility status post left hip fracture, ORIF Patient Problems: Active and Suspected Problems (Last Reviewed 11/08/18 @ 14:38 by Felipe Harley MD) Debility (Acute) Fall (Acute) - Physical Exam General: Alert, Oriented x3, Cooperative, No apparent distress HEENT: Atraumatic, PERRLA, EOMI Lungs: Clear to auscultation Cardiovascular: Regular rate Abdomen: Bowel Sounds Present Neurological: Cranial nerves II-XII grossly intact Psych/Mental Status: Normal Affect, Alert and oriented to time, place, person, mood and affect Vital Signs Temp Pulse Resp BP Pulse Ox 36.4 C L 69 12 120/69 92 12/27/18 07:21 12/27/18 07:21 12/27/18 07:21 12/27/18 07:21 12/27/18 07:21 Oxygen Delivery Method Room Air Weight: 131.27 kg Body Mass Index (BMI) 37.6 Intake and Output for Last 24 Hours 12/25/18 12/26/18 12/27/18 23:59 23:59 23:59 Intake Total 520 / 520 960 / 960 Balance 520 / 520 960 / 960 Discharge Diet: No Restrictions Discharge Activity: Return to Normal Activity, May Not Drive Weight Bearing Status: Toe touch weight bearing Lifting Restrict to (lbs):: 10 Home Medications: Medications to take at Discharge Folic Acid 1 mg PO DAILY 11/07/18 Hydroxychloroquine [Plaquenil] 200 mg PO BID 11/07/18 Losartan/Hydrochlorothiazide [Losartan-Hctz 100-25 mg Tab] 1 tab PO DAILY 11/07/18 Meloxicam 7.5 mg PO BID 11/07/18 Methotrexate 8 tab PO MO 11/07/18 Omeprazole 40 mg PO DAILY 11/07/18 Acetaminophen [Tylenol] 1,000 mg PO Q8 12/13/18 Amiodarone HCl [Cordarone] 200 mg PO DAILY 12/13/18 Calcium (Elemental) [Os-Emmanuel 500] 1,000 mg PO DAILY@0800 12/13/18 Carvedilol [Coreg (Beta Tressa)] 25 mg PO BID 12/13/18 Cholecalciferol (VIT D3) [Vitamin D3] 2,000 unit PO DAILY@0800 12/13/18 Magnesium Oxide [Mag-Ox 400] 400 mg PO DAILYCM 12/13/18 Nystatin Powder [Mycostatin Powder] 1 applic TOPICAL TID 12/13/18 Polyethylene Glycol 3350 [Miralax] 17 gm PO DAILY 12/13/18 Rivaroxaban [Xarelto] 20 mg PO DAILY 12/13/18 Oxycodone [Oxyir] 10 mg PO Q4H PRN PRN 7 Days #30 tab 12/27/18 Senna/Docusate Sodium [Senokot-S] 2 tablet PO BID tablet 12/27/18 Following Prescrptions Were Given to Patient: Oxycodone [Oxyir] 10 mg PO Q4H PRN PRN 7 Days #30 tab PRN Reason: Moderate Pain (pain scale 4-5) Primary Care Physician: Cely Kang,Out of [Primary Care Provider] - Please Follow Up With: Dr Zhu Disposition: Senior Care facility Minutes spent on discharge:: 40 Patient Condition:: Good Rehab Course The patient is a 78 year old M with PMH of HTN, RA, new onset A. fib (on Xarelto), recent admission for small bowel obstruction admitted to [facility] inpatient rehab unit on 12/13/2018 with debility S/P mechanical fall, found to have impacted nondisplaced subcapital fracture of left hip and is S/P closed reduction with pinning of left hip by Dr. Zhu on 12/10/2018, for greater than 3 hours therapy daily with the aim of returning back home at or near his prior level of functional independence. Per patient he had a mechanical fall at home while walking with his cane. He lives with his , uses cane and a Rollator to ambulate, denies any frequent falls, does drive and does not need any assistance for his ADLs. He lives in a ranch house, and has 2-3 steps going into the house. Per patient he has a history of RA and is on methotrexate 2.5 mg 8 tablets once weekly for the same. At present patient denies any new onset of headache, dizziness, visual disturbances, speech distur bances, new onset focal motor weakness or sensory loss. His rehab course was complicated by an injury in the bathroom when he abruptly lowered himself to the toilet causing increased left hip pain however further evaluation of this was negative for fracture including evaluation by Dr. Zhu and x-ray. His left hip pain did improve, he also had some constipation which improved and his rehab course was otherwise uncomplicated although due to his ongoing toe-touch weightbearing status he was felt appropriate to be discharged to an intermediate level of care for further convalescence. Meaningful Use Info Meaningful Use Diagnoses (Choose all that apply): None applicable
--- NOTE | 2018-12-27 12:13 | CASEMGMT ---
Team meeting held. Patient present as well as patient daughter. Patient to discharge on 12/29/18 to [facility] at 1:00pm via wheelchair van. Patient and patient daughter agreeable to all discharge planning. Patient to continue with further care and treatment on the Inpatient Rehab Unit until time of discharge. Support given. Will fax discharge information and PASRR results to [facility] when obtained. Proposed discharge date: 12/29/18 PLAN: Discharge to [facility] - Skilled. Danielle AUSTIN, SABRINA
--- NOTE | 2018-12-27 13:07 | CASEMGMT ---
Social Work PASRR completed and faxed to the [facility]. Will fax orders to [facility] when obtained. Proposed discharge date: 12/29/18 PLAN: Discharge to [facility] - skilled. Danielle AUSTIN, SABRINA
[2018-12-27] MEDS: Rivaroxaban 20 MG Tablet PO (17:12)
[2018-12-27 19:34] VITALS: BP 138/73; PULSE 75; RESP 18; TEMP 36.4; O2SAT 94
[2018-12-28] MEDS: oxyCODONE 5 MG Tablet 10 MG PO ×3 (00:28→16:24)
[2018-12-28] MEDS: Nystatin Powder 15gm Bottle 1 APPLIC TOPICAL ×3 (06:48→21:27)
[2018-12-28] MEDS: Acetaminophen 500 MG Tablet 1000 MG PO ×3 (06:49→21:27)
[2018-12-28] MEDS: Calcium (Elemental) 500 MG Tablet 1000 MG PO (07:43)
[2018-12-28] MEDS: Magnesium Oxide 400 MG Tablet PO (07:43)
[2018-12-28] MEDS: Folic Acid 1 MG Tablet PO (07:43)
[2018-12-28] MEDS: Hydroxychloroquine 200 MG Tablet PO ×2 (07:44→16:24)
[2018-12-28] MEDS: Amiodarone 200 MG Tablet PO (07:45)
[2018-12-28] MEDS: Losartan Potassium 100 MG Tablet PO (07:46)
[2018-12-28] MEDS: Carvedilol 25 MG Tablet PO ×2 (07:46→21:27)
[2018-12-28] MEDS: Pantoprazole Sodium 40 MG Tablet PO (07:47)
[2018-12-28] MEDS: Meloxicam 7.5 MG Tablet PO ×2 (07:47→21:27)
[2018-12-28] MEDS: Senna/Docusate Sodium 1 Tablet 2 TABLET PO ×2 (07:47→21:26)
[2018-12-28] MEDS: Polyethylene Glycol 3350 17 GM PACKET PO (07:47)
[2018-12-28] MEDS: hydroCHLOROthiazide 25 MG Tablet PO (07:47)
[2018-12-28 08:35] VITALS: BP 135/90; PULSE 66; RESP 16; TEMP 36.5; O2SAT 92
--- NOTE | 2018-12-28 13:33 | PCM.TXEXTCAR ---
- Diet 12/13/18 19:07 Diet: Calorie Controlled Food consistency:: Regular Liquid Consistency:: Regular/Thin Is pt able to select menu?: Yes How many daily calories?: 2000 calorie Diet: Carbohydrate Controlled Is pt able to select menu?: Yes - Routine Orders/Code Status O2 Liters per Minute: 2 O2 Frequency: PRN Keep PO Greater than or Equal to (%): 92 Code Status: Full Code - Wound(s) left hip Wound Type: Surgical Incision - Therapies Weight Bearing: Toe-touch weight bearing Extremity Affected:: Left Lower Physical Therapy: Eval and Treat Occupational Therapy: Eval and Treat - Allergies/Procedures Done in Hospital Allergies/Adverse Reactions: Allergies Penicillins Allergy (Severe, Verified 12/09/18 11:58) rash Procedures: None - Type of Care/Length of Stay Estimated LOS: More Than 30 Days Type of Care Needed: Skilled Rehab Potential: Good Prognosis: Good - Additional Orders/Day of Discharge Day of Discharge: 12/29/18 - Dietary and Speech Recommendations Dietitian Recommendations/Changes: Rec diet change to 2000 calorie/cardiac diet. - Follow Up Care Primary Care Physician: Cely Kang,Out of [Primary Care Provider] - Please Follow Up With: Dr Zhu
[2018-12-28 13:36] VITALS: BP 149/88; PULSE 66; RESP 18; TEMP 36.6; O2SAT 98
[2018-12-28] MEDS: Rivaroxaban 20 MG Tablet PO (16:24)
[2018-12-28 20:59] VITALS: BP 125/71; PULSE 67; RESP 18; TEMP 36.6; O2SAT 93
[2018-12-29] MEDS: Acetaminophen 500 MG Tablet 1000 MG PO (05:18)
[2018-12-29] MEDS: Nystatin Powder 15gm Bottle 1 APPLIC TOPICAL (05:19)
[2018-12-29 07:30] VITALS: BP 149/88; PULSE 66; RESP 18; TEMP 36.6; O2SAT 97
[2018-12-29] MEDS: Calcium (Elemental) 500 MG Tablet 1000 MG PO (09:58)
[2018-12-29] MEDS: Folic Acid 1 MG Tablet PO (09:58)
[2018-12-29] MEDS: Magnesium Oxide 400 MG Tablet PO (09:58)
[2018-12-29] MEDS: Hydroxychloroquine 200 MG Tablet PO (09:59)
[2018-12-29] MEDS: Losartan Potassium 100 MG Tablet PO (09:59)
[2018-12-29] MEDS: Amiodarone 200 MG Tablet PO (09:59)
[2018-12-29] MEDS: hydroCHLOROthiazide 25 MG Tablet PO (09:59)
[2018-12-29] MEDS: Meloxicam 7.5 MG Tablet PO (09:59)
[2018-12-29] MEDS: Polyethylene Glycol 3350 17 GM PACKET PO (09:59)
[2018-12-29] MEDS: Pantoprazole Sodium 40 MG Tablet PO (10:00)
[2018-12-29] MEDS: Senna/Docusate Sodium 1 Tablet 2 TABLET PO (10:00)
[2018-12-29] MEDS: Carvedilol 25 MG Tablet PO (10:02)
--- NOTE | 2018-12-29 12:10 | CASEMGMT ---
Social Work Patient now reporting to want to discharge to the [facility] [place] and cancel referral to [facility]. Patient reporting that patient family went to [facility] and did not have a good experience with staff and this is why patient is wanting to now change referral to [facility]. This social work faculty member communicating that it is the weekend and there is no guarantee that weekend admissions staff is in on the weekend at the [facility] to process the referral but that this social work faculty member will attempt to make contact. Telephone call to the [facility] [place], Lizbeth is in on this day and able to review clinical information. Clinical information faxed. Lizbeth to get back to this social work faculty member. Proposed discharge date: 12/29/18 PLAN: Discharge to the [facility] pending approval. NORMAN Sabillon, SABRINA
[2018-12-29] MEDS: oxyCODONE 5 MG Tablet 10 MG PO (12:28)
--- NOTE | 2018-12-29 12:35 | CASEMGMT ---
Social Work Telephone call from [facility]. Lizbeth reporting to be able to accept patient on this day. Discharge information and PASRR results faxed. Telephone call to [facility], Transportation location changed. 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 Spoke with patient and patient family, this social media executive communicating all above information, all agreeable to discharge plan. Support given. Proposed discharge date: 12/29/18 PLAN: [facility] [place] - SABRINA [place]
--- NOTE | 2018-12-29 14:28 | NURSING ---
Called report to Maure[facility] at the [facility].
== END 2018-12-29 14:00 | disposition skilled nursing facility (03) | DRG 561 ==
PROVIDERS: Admitting Provider Psychiatry & Neurology Neurology; Referring Provider Psychiatry & Neurology Neurology; Visit Provider Internal Medicine
DX: S72.012D Unspecified intracapsular fracture of left femur, subsequent encounter for closed fracture with routine healing (principal); W18.39XD Other fall on same level, subsequent encounter; I48.0 Paroxysmal atrial fibrillation; E66.9 Obesity, unspecified; Z68.37 Body mass index [BMI] 37.0-37.9, adult; Z71.3 Dietary counseling and surveillance; M06.9 Rheumatoid arthritis, unspecified; I10 Essential (primary) hypertension; E78.5 Hyperlipidemia, unspecified; D53.9 Nutritional anemia, unspecified; K21.9 Gastro-esophageal reflux disease without esophagitis
CPT/HCPCS: 36415; 73502; 80053; 85025; 97110; 97116; 97163; 97166; 97530; 97535; 97802; J8610

== ENCOUNTER 2019-01-09 08:29 | Inpatient (IN) | payer MEDICARE, BC, SELFPAY ==
[2018-12-13 16:52] VITALS: BMI 37.6
[2019-01-09] VITALS (13 sets, daily range): BP systolic 113–154; BP diastolic 60–97; PULSE 54–74; RESP 16–18; TEMP 36.3–37; O2SAT 92–100; BMI 37.4
[2019-01-09] MEDS: Lactated Ringers 1,000 ML 999 ML IV ×2 (07:05→10:10)
--- NOTE | 2019-01-09 07:05 | RAD_ITS ---
STUDY: X-RAY - LEFT HIP REASON FOR EXAM: Male, 78 years old. Postop. TECHNIQUE: 2 views of the hip. COMPARISON: AP pelvis with additional views of the left hip December 17, 2018. FINDINGS: Indwelling right bipolar hip prosthesis again noted. The patient has undergone left total hip arthroplasty. Following resection of the femoral head and neck as well as removal of the prior fixation screws, a metal bipolar hip prosthesis was placed. The acetabular and femoral components appear well seated, and in anatomic alignment. Cast lucencies of the tissue surrounding the left hip are consistent with recent surgery. There is no demonstrated acute fracture. Normal visualized superior and inferior pubic rami and ischial tuberosities. RAD/Hip Min 2 Views (Portable) IMPRESSION: Post left total hip arthroplasty. Electronically Signed: Martín Brannon, at 17:48 EST , Service support ,
[2019-01-09] MEDS: Scopolamine 1mg/72hr Patch 1 PATCH TD (07:15)
[2019-01-09] MEDS: Acetaminophen 500 MG Tablet 1000 MG PO ×3 (09:17→21:02)
[2019-01-09] MEDS: Celecoxib 200 MG Capsule 400 MG PO (09:18)
--- NOTE | 2019-01-09 10:43 | RAD_ITS ---
STUDY: X-RAY - LEFT HIP REASON FOR EXAM: Male, 78 years old. Anterior hemiarthroplasty of the hip. TECHNIQUE: Fluoroscopic assistance was provided to Dr. Zhu. 8 fluoroscopic views of the pelvis/hips are submitted. FLUOROSCOPY TIME: 40.1 seconds. COMPARISON: AP pelvis and additional views of the left hip December 17, 2018. FINDINGS: An indwelling right bipolar hip prosthesis is noted. Images demonstrate removal of the fixation screws at the proximal left femur and resection of the femoral head and neck. A metal bipolar hip prosthesis is placed, the stem of the femoral prosthesis extending into the proximal femoral diaphysis. The acetabular and femoral prostheses appear well seated, and in anatomic alignment. There is no demonstrated acute fracture. Normal visualized superior and inferior pubic rami and ischial tuberosities. Gas lucencies in the soft tissues surrounding the left hip are consistent with recent surgery. RAD/Hip 1 view with Pelvis IMPRESSION: Fluoroscopic guidance for left total hip arthroplasty. Electronically Signed: Martín Brannon, at 18:18 EST , Service support ,
--- NOTE | 2019-01-09 12:51 | OP.PCM_ITS ---
Report of Operation Date of Procedure: 01/09/19 Pre-Operative Diagnosis: Left hip osteoarthritis. Left subcapital femoral neck fracture with failed hip pinning Post-Operative Diagnosis: Left hip osteoarthritis. Left subcapital femoral neck fracture with failed hip pinning Surgery/Procedure Performed:: Conversion previous hip surgery to total hip replacement Description of Surgical Findings:: Stable hip. We did have to make the left leg longer secondary to what appeared to be shortening of the contralateral side with comparative anatomy and in order to maintain stability of the left hip. information broker: Falguni Maria information broker: Eron Ness Type of Anesthesia:: General Anesthesiologist: Daniel Blank Special Medications: 600 mg clindamycin, 2 g TXA in wound prior to closure for 1 minute lavage, 10 mg Decadron, joint cocktail (5 mg Duramorph, 30 mL of 0.5% Ropivicaine, 1000 units of epinephrine, 30 mg of Toradol) Specimen's removed: Bony cuts Estimated Blood Loss (mL): 250 Fluids Replaced: 2000 mL crystalloid Description of Procedure: Components used: 1. Accolade 2 [place] femoral stem size 8 127? 2. [place] trident 2 acetabular shell size 56 mm 3. [place] X3 polyethylene 46F 4. [place] cobalt chromium 28 mm, +12 mm femoral head 5. [place] cobalt chromium MDM liner, alpha code F Brief history operative indications: 78yo male who previously had a nondisplaced subcapital femoral neck fracture with mild valgus impaction. Hip pinning was performed roughly 3 weeks ago. Patient had a fall after surgery and progressive loss of reduction and what appeared to be rotation of the fracture. Based on continued pain and inability to bear weight as well as a successful right hip hemiarthroplasty from previous surgery patient wished to discuss further surgical treatments. X-rays were also consistent with osteoarthritis including joint space narrowing, osteophyte formation and subchondral cysts. Total hip replacement was discussed with the patient with risks and benefits including but not limited to blood loss, DVTs, PEs, neurovascular damage, dislocation, general risks of anesthesia including loss of life. Patient demonstrated an understanding medical clearance is obtained the patient was consented for surgery. Specifically we did discuss the increased risk of instability after total hip replacement for hip fracture. Procedure: On the date of procedure the patient's L hip was marked in the preoperative area. Patient was then taken back to the operating room where anesthesia assumed control of the C-spine and airway and administered anesthetic. Patient was transferred to the operating table and placed in the supine position. The hips were placed at the break of the bed and a sacral bump was placed. The L lower extremity was then prepped out in a sterile fashion using chlorhexidine while the surgeon scrubbed. The PA was vital in the positioning of the patient. Upon reentering the room the L lower extremity was draped in the standard orthopedic fashion and the incision was marked. A timeout was called and everyone agreed upon the side, the site, the procedure be performed, antibody given, and patient's identity. Initial incision was made with the previous hip pinning incision was. We are able to palpate the screws. 2 screws were be able to remove from this incision. We had difficulty removing the last screw as it just spun in place. At this time incision was made through skin, subcutaneous tissue, and fat down to fascia. The fascia was then incised and the TFL was retracted laterally. A retractor was placed on the lateral border of the fem oral neck. Attention was directed to the inferior portion of the approach and all crossing vessels were identified and appropriately coagulated. A retractor was then placed on the medial portion of the femoral neck. The anterior capsule was then cleared of all soft tissue and then H shaped capsulotomy was made. The retractors were then placed inside the capsule. The femoral neck was identified and a cleanup cut was made. We removed the napkin ring portion of the cut were able to palpate the screw head as well as the screw within the joint. Using a rondure we were able to back the screw out. Once we got into a good place we get a good bite we were able to put the screwdriver in the screw head again and removed the remainder of the screw. There was one remaining washer that needed to be removed we did this using x-ray. We then again directed our attention back to the joint. At this time a power corkscrew was used to remove the femoral head. Attention was then turned toward the acetabulum where the soft tissues were appropriately retracted and the acetabulum was sequentially reamed to 56 mm. A 56 mm cup was then selected and impacted into place. Acetabular liner was im pacted into place and locking mechanism was verified. The position of the acetabular cup was then verified under live fluoroscopy. Attention was then turned to the femur. Soft tissue releases on the medial and lateral femoral neck were appropriately done, the leg was externally rotated and lateralized. A Morris retractor was placed medially and proximally to the greater trochanter this allowed appropriate visualization and exposure of the femoral canal. Rongeour was then used to remove excess lateral bone. A canal finder and entry broach were used to open the proximal canal. Once we verified we were down the femoral canal we subsequently broached up to a size 8 femur. The appropriate neck was placed in the previously selected head was trialed with a 10 mm neck. Traction was pulled and the hip was reduced with internal rotation. Once it was appropriately reduced and stability was checked. Patient was stable with extremes of external rotation he did have some instability. Be cause of this we removed the size 10 mm neck length. We also very closely scrutinized the contralateral side we were compared leg lengths. Based on this he had a very low placed femoral stem and minimal offset. He also had a history of walking with a limp since the surgery. At this time we elected to go for stability and we are going to have to make the leg a little bit longer than the contralateral side. At this time the hip was dislocated the polyethylene liner was removed and an MDM liner was placed. A +12 MDM femoral head was selected and impacted into place. There was minimal shuck, equal leg lengths and appropriate stability with hyperextension and external rotation as well as with 90? flexion and internal rotation. Fluoroscopy was then also used to verify the position of the components and leg lengths using the contralateral side for comparison. The trial components were then dislocated the proximal femur was again exposed and the components were removed from the wound. The final components were verified and opened. The wound was copiously irrigated out with normal saline. The acetabulum was checked for any residual debris. The final components were placed and impacted. Traction and internal rotation were again used to reduce the hip. After adequate reduction the hip remained stable with appropriate leg lengths. The final components were once again checked with live fluoroscopy and were found to be satisfactory. The wound was then copiously irrigated with normal saline once more, and hemostasis was obtained. Closure was then done using #1 Vicryl runner to close the fascia. A 2-0 vicryl interuppted sutures were used to close the subcutaneous skin. A 3-0 Monocryl and Steri-Strips were used for final skin closure. A Silverlon dressing was placed. Patient was awakened by anesthesia [facility] Patient was then transferred to the PACU for recovery. Postoperative plan: Patient will get 24 hours postop antibiotics. Patient will get in-house physical therapy and will be weight-bear as tolerated. Patient will follow up in office in 2 weeks for a wound check and x-rays. During the course of the procedure the physician fast food assistant restaurant manager played a vital role. His intimate knowledge of my steps in the procedure aided in safe and expedient completion of the procedure. The PA played a vital rolls in positioning particularly in obtaining the appropriate positioning of the sacral bump. The PA was also vital in the retraction of soft tissues during the exposure and especially the femoral work as this is a vital part of the procedure to prevent complications and fractures. The PA was also vital and protecting soft tissues during times of bony cuts and reaming. He also played a vital role in closure with my direct supervision. The PA was also important during reduction and dislocation of the joint and trials intraoperatively. Grafts/Implants Used: [place] Accolade 2, Trident 2, MDM liner. - Complications NONE - Admit VTE Documentation VTE Present on Admission: No VTE Mechan Device Prophylaxis: SCD's, Thigh High TIMOTHY Hose VTE Pharm Prophylaxis ordered?: Yes
--- NOTE | 2019-01-09 15:39 | CASEMGMT ---
Social Work Note SW reviewed pt's previous visits and it appears pt went to [facility] from [facility]. SW placed a call to Lizbeth at [facility] who confirms pt is at their facility and pt is able to return (if pt doesn't have any behaviors) once pt is medically cleared. Plan: SW to meet with pt tomorrow to confirm discharge plans with pt. If pt chooses to return to [facility] pt can discharge to [facility] once medically cleared Shivani Watts DATA SME, PRINCIPAL SYSTEMS ENGINEER
--- NOTE | 2019-01-09 15:46 | PCM.PN.HOSP ---
Subjective: Hospitalist consult for Medical management The patient is a 70-year-old gentleman who was electively admitted after left total hip replacement. Initially patient had left hip fracture in November 2018 and had ORIF with pinning done by Dr. Zhu on 12/02/2018. After that, patient was not able to put weight and ambulate well therefore patient had elective left hip total replacement. Prior to that patient had right hip arthroplasty in 2010. Patient also has history of paroxysmal A. fib after he had laparotomy for a small bowel obstruction. After that he converted to normal sinus rhythm and temporary anticoagulant was discontinued. Patient saw Dr. Sabillon at that time. Most recent EKG of December 09 shows normal sinus rhythm at 64 bpm with PVCs. Patient had echo in October 2018 reported as EF 55% with grossly normal left ventricular systolic function and size and wall motion. Overall no significant valvular abnormality but was technically difficult study because of patient's body habitus. Past medical history: Hypertension, rheumatoid arthritis, paroxysmal A. fib, diffuse degenerative joint arthritis And morbid obesity Review of system Patient denies lower urinary tract symptoms. Patient had mild constipation and is on MiraLAX. Denies abdominal pain. Denies chest pain, shortness of breath, palpitation. Rest 12 review systems are negative. Vitals/I&O's: Vital Signs Temp Pulse Resp BP Pulse Ox 98.0 F 60 18 129/88 H 95 01/09/19 15:09 01/09/19 15:13 01/09/19 15:09 01/09/19 15:09 01/09/19 15:09 Oxygen Flow Rate (L/min) 1 Oxygen Delivery Method Nasal Cannula Weight: 291 lb 8.722 oz Body Mass Index (BMI) 37.4 Intake and Output for Last 24 Hours 01/07/19 01/08/19 01/09/19 23:59 23:59 23:59 Intake Total 1999 Balance 1999 General: Alert, Oriented x3, Cooperative HEENT: Atraumatic, PERRLA, EOMI, Normocephalic Neck: Supple, No JVD, Negative Carotid Bruits Lungs: Clear to auscultation, Normal air movement, No rhonchi, No wheeze, No rales Cardiovascular: Regular rate, Regular Rhythm, Normal S1, Normal S2, No murmurs Abdomen: Bowel Sounds Present, Soft, Non Tender, Non-Distended Extremities: No edema, Capillary Refill Less than 3 Seconds Skin: No rashes, No breakdown Musculoskeletal: Arthritic Changes, Tenderness - Mild tenderness to her left hip operative site, - - Left hip operative site, dressing is dry. No hematoma or bruise. Neurological: Cranial nerves II-XII grossly intact, Deep Tendon Reflexes 2+/4 and Symmetrical, Neuro grossly intact Psych/Mental Status: Normal Affect, Appropriate Current Medications Acetaminophen (Tylenol) 1,000 mg PO Q8 [facility] Amiodarone HCl (Cordarone) 200 mg PO DAILY [facility] Calcium/Vitamin D (Os-Emmanuel 500mg + D) 1 tablet PO DAILYCM [facility]) [facility] Cholecalciferol (Vitamin D) 2,000 unit PO DAILY@0800 [facility] Famotidine (Pepcid) 20 mg PO DAILY [facility] Folic Acid (Folic Acid) 1 mg PO DAILY@0800 [facility] Hydrochlorothiazide (Hctz) 25 mg PO DAILY [facility] Hydroxychloroquine Sulfate (Plaquenil) [facility] Clindamycin Phosphate 600 mg/ (Dextrose) 54 mls @ 162 mls/hr IV Q6H [facility] Stop: 01/10/19 05:02 Lactated Ringer's () 1,000 mls @ 75 mls/hr IV .[id number] [facility] Ketorolac Tromethamine (Toradol) 15 mg IV Q6H PRN PRN PRN Reason: MILD-MOD PAIN (1-5/10) Losartan Potassium (Cozaar) 100 mg PO DAILY [facility] Meloxicam (Mobic) 7.5 mg PO BID [facility] Methotrexate (Methotrexate) 20 mg PO Mo@1000 [facility] Morphine Sulfate () 2 - 4 mg IV Q2H PRN PRN PRN Reason: SEVERE PAIN (6-10/10) Morphine Sulfate () 2 - 4 mg IV Q2H PRN PRN PRN Reason: SEVERE PAIN (6-10/10) Nutritional Formula (Lactose Free) (Glucerna Shake) 120 ml PO TIDCM [facility] Last Admin: 01/09/19 14:56 Dose: Not Given Ondansetron HCl (Zofran) 4 mg IV Q8H PRN PRN PRN Reason: NAUSEA Oxycodone HCl (Oxyir) 5 - 10 mg PO Q4H PRN PRN PRN Reason: MOD-SEVERE PAIN (4-08/22) Pantoprazole Sodium (Protonix) 40 mg PO DAILY [facility] Polyethylene Glycol (Miralax) 17 gm PO DAILY [facility] Promethazine HCl (Phenergan) 12.5 mg IM Q6H PRN PRN; Protocol PRN Reason: NAUSEA/VOMITING Rivaroxaban (Xarelto) 20 mg PO DAILY@1700 [facility] Senna/Docusate Sodium (Senokot-S, Yuliet-Colace) 2 tablet PO BID [facility] Sodium Chloride () 5 - 15 ml IV UD PRN PRN Reason: SALINE FLUSH Medical Necessity - Tobacco Use Smoking Status: Never smoker Assessment/Plan All Active Problems (Last Reviewed 11/08/18 @ 14:38 by Felipe Harley MD) Hip fracture, left (Acute) Debility (Acute) Fall (Acute) Small bowel obstruction (Acute) Atrial fibrillation (Acute) The patient is a 70-year-old gentleman who was electively admitted after left total hip replacement after left hip fracture in November 2018 status post ORIF with pinning done by Dr. Zhu on 12/02/2018. After that, patient was not able to put weight and ambulate well therefore patient had elective left hip total replacement. Prior to that patient had right hip arthroplasty in 2010. 1. Elective left hip total replacement: Postop day 0. Pain management. PT and OT. CBC BMP tomorrow a.m. Incentive spirometry. 2. Paroxysmal A. fib after small bowel obstruction laparotomy surgery: Heart rate is controlled. Patient is in normal sinus rhythm. On Xarelto and amiodarone. 3. Hypertension: Blood pressure is controlled. Continue home medication. On losartan/HCTZ 100-25 mg, carvedilol. 4. Other comorbidities include rheumatoid arthritis, BPH degenerative joint disease, constipation and morbid obesity: Home medication reconciliation done DVT prophylaxis: On Xarelto 20 mg daily. Code Visit Inpatient E&M: 77345 Init Hosp L2
[2019-01-09] MEDS: Hydroxychloroquine 200 MG Tablet PO (16:51)
[2019-01-09] MEDS: Calcium Carb/Vitamin D 1 TABLET Tablet PO (16:51)
[2019-01-09] MEDS: Folic Acid 1 MG Tablet PO (16:51)
[2019-01-09] MEDS: hydroCHLOROthiazide 25 MG Tablet PO (16:51)
[2019-01-09] MEDS: Famotidine 20 MG Tablet PO (16:52)
[2019-01-09] MEDS: Carvedilol 25 MG Tablet PO (16:52)
[2019-01-09] MEDS: Glucerna Shake 120 ML LIQUID PO (16:57)
[2019-01-09] MEDS: Senna/Docusate Sodium 1 Tablet 2 TABLET PO (21:02)
[2019-01-09] MEDS: Lactated Ringers 1,000 ML 75 ML IV (23:34)
[2019-01-10] VITALS (7 sets, daily range): BP systolic 108–136; BP diastolic 55–72; PULSE 55–77; RESP 16–18; TEMP 36.6–36.8; O2SAT 93–96
[2019-01-10] MEDS: Acetaminophen 500 MG Tablet 1000 MG PO ×3 (05:40→21:40)
[2019-01-10 05:45] LABS: Hematocrit 29.9 % (40-54); Hemoglobin 9.6 g/dl (13.0-16.5); Mean Corp Hgb Conc 32.1 g/gl (32-36); Mean Corpuscular Hgb 33.3 pg (27.0-32.0); Mean Corpuscular Volume 103.8 fL (80-94); Mean Platelet Vol. 9.4 fl (6.2-12.0); Platelet Count 242 K/mm3 (150-450); RBC Distribution Width CV 13.2 % (11.6-14.6); RBC Distribution Width SD 48.2 fl (35.1-43.9); Red Blood Count 2.88 M/mm3 (4.6-6.2); White Blood Count 12.3 K/mm3 (4.4-11.0)
[2019-01-10 05:54] LABS: Anion Gap 8 (5-15); BUN 25 mg/dL (7-18); BUN/Creat Ratio 18.2 RATIO (10-20); Chloride 104 mmol/L (98-107); Creatinine, Serum 1.37 mg/dL (0.70-1.30); EST Glomerular Filtration Rate 53 mL/min (>60); Est Glom Filt Rate - Afr Amer 65 mL/min (>60); Estimated Creatinine Clearance 51.67 ml/min; Glucose 138 mg/dL (74-106); Potassium 4.1 mmol/L (3.5-5.1); Sodium Level 140 mmol/L (136-145)
[2019-01-10 06:01] LABS: Scan Indicated on CBC? Y/N NO
[2019-01-10] MEDS: oxyCODONE 5 MG Tablet PO ×2 (06:53→17:46)
[2019-01-10] MEDS: Calcium Carb/Vitamin D 1 TABLET Tablet PO (08:49)
[2019-01-10] MEDS: Losartan Potassium 100 MG Tablet PO (08:49)
[2019-01-10] MEDS: Polyethylene Glycol 3350 17 GM PACKET PO (08:49)
[2019-01-10] MEDS: hydroCHLOROthiazide 25 MG Tablet PO (08:49)
[2019-01-10] MEDS: Senna/Docusate Sodium 1 Tablet 2 TABLET PO ×2 (08:49→21:40)
[2019-01-10] MEDS: Folic Acid 1 MG Tablet PO (08:50)
[2019-01-10] MEDS: Famotidine 20 MG Tablet PO (08:50)
[2019-01-10] MEDS: Hydroxychloroquine 200 MG Tablet PO ×2 (08:50→17:48)
[2019-01-10] MEDS: Pantoprazole Sodium 40 MG Tablet PO (08:50)
[2019-01-10] MEDS: Carvedilol 25 MG Tablet PO ×2 (08:50→17:46)
[2019-01-10] MEDS: Meloxicam 7.5 MG Tablet PO ×2 (08:51→21:40)
[2019-01-10] MEDS: Glucerna Shake 120 ML LIQUID PO ×3 (08:55→17:53)
--- NOTE | 2019-01-10 09:28 | PCM.PN.ORT ---
Subjective: The patient was sitting in bedside chair upon examination. Patient denies any chest pain, shortness of breath, dizziness, lightheadedness, nausea or vomiting, or calf pain. Pain is controlled on medications. No adverse overnight events. Patient has worked with occupational therapy today. He states he is doing much better from his previous surgery. He has not worked with physical therapy at this point yet. Plan is for patient to go to sn[facility] facility versus rehab unit at [facility] upon discharge. Objective: Vital signs stable and afebrile. Patient is able to plantarflex and dorsiflex actively. Sensation is intact to light touch to saphenous, sural, superficial and deep peroneal, and tibial distribution. Mepilex dressing is clean dry and intact. Other dressing laterally is with drainage post operatively. We will continue to monitor. Negative Homans bilaterally, negative signs and symptoms of DVT. - Physical Exam General: Alert, Oriented x3, Cooperative, No apparent distress Vital Signs Temp Pulse Resp BP Pulse Ox 98.3 F 55 L 16 132/70 H 93 01/10/19 08:00 01/10/19 08:00 01/10/19 08:00 01/10/19 08:00 01/10/19 08:00 Oxygen Flow Rate (L/min) 2 Oxygen Delivery Method Room Air Weight: 132.243 kg Body Mass Index (BMI) 37.4 Intake and Output for Last 24 Hours 01/08/19 01/09/19 01/10/19 23:59 23:59 23:59 Intake Total 2150 / 2150 1371 / 1371 Output Total 800 / 800 Balance 2150 / 2150 571 / 571 Laboratory Tests Past 24 Hrs 01/10/19 01/10/19 05:24 05:24 WBC 12.3 H RBC 2.88 L Hgb 9.6 L Hct 29.9 L MCV 103.8 H MCH 33.3 H MCHC 32.1 RDW 13.2 RDW Differential 48.2 H Plt Count 242 MPV 9.4 Sodium 140 Potassium 4.1 Chloride 104 Carbon Dioxide 28.0 Anion Gap 8 BUN 25 H Creatinine 1.37 H Estim Creat Clear Calc 51.67 Est GFR (MDRD) Af Amer 65 Est GFR (MDRD) Non-Af 53 L BUN/Creatinine Ratio 18.2 Glucose 138 H Calcium 8.0 L Medical Necessity - Tobacco Use Smoking Status: Never smoker Assessment/Plan All Active Problems (Last Reviewed 11/08/18 @ 14:38 by Felipe Harley MD) Hip fracture, left (Acute) Debility (Acute) Fall (Acute) Small bowel obstruction (Acute) Atrial fibrillation (Acute) 1. S/P conversion previous hip surgery to left total hip arthroplasty POD #1 2. Continue Pain Medications: Tylenol and OxyIR 3. DVT Prophylaxis: Xarelto 4. PT/OT: Weightbearing as tolerated 5. Anemia secondary to acute blood loss postoperatively: H & H: 9.6/29.9, asymptomatic. Patient's hemoglobin on January 04, 2019 was 10.5. 6. Encouraged Incentive Spirometry 7. Continue postoperative medical management per medicine 8. Disposition: Plan will be for possible discharge to snf facility versus rehab unit at [facility]. Plan will be for possible discharge tomorrow..
--- NOTE | 2019-01-10 09:32 | PN.ORTHO_ITS ---
Subjective: The patient was sitting in bedside chair upon examination. Patient denies any chest pain, shortness of breath, dizziness, lightheadedness, nausea or vomiting, or calf pain. Pain is controlled on medications. No adverse overnight events. Patient has worked with occupational therapy today. He states he is doing much better from his previous surgery. He has not worked with physical therapy at this point yet. Plan is for patient to go to [facility] facility versus rehab unit at [facility] upon discharge. Objective: Vital signs stable and afebrile. Patient is able to plantarflex and dorsiflex actively. Sensation is intact to light touch to saphenous, sural, superficial and deep peroneal, and tibial distribution. Mepilex dressing is clean dry and intact. Other dressing laterally is with drainage post operatively. We will continue to monitor. Negative Homans bilaterally, negative signs and symptoms of DVT. - Physical Exam General: Alert, Oriented x3, Cooperative, No apparent distress Vital Signs Temp Pulse Resp BP Pulse Ox 98.3 F 55 L 16 132/70 H 93 01/10/19 08:00 01/10/19 08:00 01/10/19 08:00 01/10/19 08:00 01/10/19 08:00 Oxygen Flow Rate (L/min) 2 Oxygen Delivery Method Room Air Weight: 132.243 kg Body Mass Index (BMI) 37.4 Intake and Output for Last 24 Hours 01/08/19 01/09/19 01/10/19 23:59 23:59 23:59 Intake Total 2150 / 2150 1371 / 1371 Output Total 800 / 800 Balance 2150 / 2150 571 / 571 Laboratory Tests Past 24 Hrs 01/10/19 01/10/19 05:24 05:24 WBC 12.3 H RBC 2.88 L Hgb 9.6 L Hct 29.9 L MCV 103.8 H MCH 33.3 H MCHC 32.1 RDW 13.2 RDW Differential 48.2 H Plt Count 242 MPV 9.4 Sodium 140 Potassium 4.1 Chloride 104 Carbon Dioxide 28.0 Anion Gap 8 BUN 25 H Creatinine 1.37 H Estim Creat Clear Calc 51.67 Est GFR (MDRD) Af Amer 65 Est GFR (MDRD) Non-Af 53 L BUN/Creatinine Ratio 18.2 Glucose 138 H Calcium 8.0 L Medical Necessity - Tobacco Use Smoking Status: Never smoker Assessment/Plan All Active Problems (Last Reviewed 11/08/18 @ 14:38 by Felipe Harley MD) Hip fracture, left (Acute) Debility (Acute) Fall (Acute) Small bowel obstruction (Acute) Atrial fibrillation (Acute) 1. S/P conversion previous hip surgery to left total hip arthroplasty POD #1 2. Continue Pain Medications: Tylenol and OxyIR 3. DVT Prophylaxis: Xarelto 4. PT/OT: Weightbearing as tolerated 5. Anemia secondary to acute blood loss postoperatively: H & H: 9.6/29.9, asymptomatic. Patient's hemoglobin on January 04, 2019 was 10.5. 6. Encouraged Incentive Spirometry 7. Continue postoperative medical management per medicine 8. Disposition: Plan will be for possible discharge to [facility] facility versus rehab unit at [facility]. Plan will be for possible discharge tomorrow..
--- NOTE | 2019-01-10 09:41 | CASEMGMT ---
Social Work Note Physician updated this worker that pt would prefer to return to at discharge but if unable to pt is agreeable to returning to [facility]. KASIA placed a call to Natalia with and left her a message asking if is able to accept pt. SW waiting for call back. Plan: [facility] vs. [facility] Shivani Watts HAT MODEL, WILDLIFE CONTROL AGENT
--- NOTE | 2019-01-10 10:20 | PCM.DC.THR ---
Discharge Diet: No Restrictions Discharge Activity: May Not Drive - while taking narcotic pain medications. May shower in (days): 1 - Turned dressing away from water Ice area for (Minutes): 20 - Every 1-2 hours while awake Weight Bearing Status: Weight bearing as tolerated - Walker Elevate: Operative Extremity Additional Activity Instructions:: Wear elastic stockings for 2 weeks. DO NOT use alcohol with narcotic pain medication. DO NOT make important decisions while taking narcotic medication. If you have problems with taking your medication (rash, itching, nausea, etc.) call the office at once. Call your doctor if your incision/area has: Increased Pain/ Swelling, Increased Redness, Foul Smelling Discharge Call your doctor if you observe: Fever of 101 or Higher Remove Dressing in (days):: 3 - Okay to remove dressing on January 14, 2019 Additional Instructions: Follow [facility] postop instructions Allergies/Adverse Reactions: Allergies Penicillins Allergy (Severe, Verified 01/08/19 09:31) rash Medications to take at Discharge Folic Acid 1 mg PO DAILY 11/07/18 Hydroxychloroquine [Plaquenil] 200 mg PO BID 11/07/18 Losartan/Hydrochlorothiazide [Losartan-Hctz 100-25 mg Tab] 1 tab PO DAILY 11/07/18 Meloxicam 7.5 mg PO BID 11/07/18 Methotrexate 8 tab PO MO 11/07/18 Amiodarone HCl [Cordarone] 200 mg PO DAILY 12/13/18 Carvedilol [Coreg (Beta Tressa)] 25 mg PO BID 12/13/18 Cholecalciferol (VIT D3) [Vitamin D3] 2,000 unit PO DAILY@0800 12/13/18 Polyethylene Glycol 3350 [Miralax] 17 gm PO DAILY 12/13/18 Rivaroxaban [Xarelto] 20 mg PO DAILY 12/13/18 Calcium Carbonate/Vitamin D3 [Os-Emmanuel 500-Vit D3 600 Caplet] 1 each PO DAILY 01/08/19 Pantoprazole Sodium [Protonix] 40 mg PO DAILY 01/08/19 Acetaminophen [Tylenol] 1,000 mg PO Q8 #90 tab 01/10/19 Oxycodone [Oxyir] 5 - 10 mg PO Q4H PRN PRN 5 Days #45 tab 01/10/19 Senna/Docusate Sodium [Senokot-S] 2 tablet PO BID 3 Days #0 01/10/19 The following prescriptions were given: Oxycodone [Oxyir] 5 - 10 mg PO Q4H PRN PRN 5 Days #45 tab PRN Reason: Mod-Severe Pain (-08/22) Acetaminophen [Tylenol] 1,000 mg PO Q8 #90 tab Primary Care Physician: [facility] Doctor,Out of [Primary Care Provider] - Test Results: Test results from this visit will be discussed in further detail at your follow-up appointment, if applicable. Please Follow Up With: Herminio Zhu MD When: 01/21/19 @ 10:45 am
[2019-01-10] MEDS: Amiodarone 200 MG Tablet PO (10:49)
--- NOTE | 2019-01-10 11:38 | CASEMGMT ---
Addendum entered by Shivani Watts 01/10/19 11:56: SW placed a call to Lizbeth at [facility] and informed her pt will be going to at [facility]. Original Note: Social Work Note RN updated this worker that pt has concerns regarding financial. SW met with pt. SW familiar with pt from pt's previous visit to [facility]. SW introduced self and role at [facility]. Pt is alert and orientated x3. Pt states that he would prefer to return to at [facility]. Pt states that if he returns to [facility] he only has 9 days left under Medicare and then he would have a $200 a day copay. SW informed pt that he has a secondary insurance and typically a secondary insurance would pay the copay. Pt states that he already called his field insurance sales manager and was informed that his insurance isn't going to cover the copay. SW informed pt about Medicaid and that if pt does need to return to SNF then this worker can have Lizbeth at [facility] check to determine what the actual copay will be for pt. Pt states understanding. KASIA received call from Natalia with [facility] stating she is able to accept pt tomorrow to . SW updated pt on acceptance to tomorrow. Pt thanked this worker. Plan: tomorrow. Shivani Watts HAIRSPRING TRUING INSPECTOR, RAILWAY HEAD TENDER
--- NOTE | 2019-01-10 13:16 | PCM.PN.HOSP ---
Subjective: Patient is doing good. Patient with the help of physical therapy walked on the hallway. Patient denies left hip pain. Left hip surgical dressing is dry. Patient is moving bowel. Vitals/I&O's: Vital Signs Temp Pulse Resp BP Pulse Ox 98.3 F 77 16 132/70 H 93 01/10/19 08:00 01/10/19 10:48 01/10/19 08:00 01/10/19 08:00 01/10/19 08:00 Oxygen Flow Rate (L/min) 2 Oxygen Delivery Method Room Air Weight: 291 lb 8.722 oz Body Mass Index (BMI) 37.4 Intake and Output for Last 24 Hours 01/08/19 01/09/19 01/10/19 23:59 23:59 23:59 Intake Total 2150 / 2150 1371 / 1371 Output Total 800 / 800 Balance 2150 / 2150 571 / 571 Vital Signs - 24 hr Temp Pulse Resp BP Pulse Ox 01/10/19 14:00 98.0 F 72 16 109/55 L 96 01/10/19 10:48 77 01/10/19 08:00 98.3 F 55 L 16 132/70 H 93 01/10/19 07:04 94 01/10/19 03:00 97.8 F 70 16 136/72 H 94 01/09/19 21:07 98.6 F 74 18 146/81 H 95 01/09/19 18:06 97.3 F L 72 18 113/60 92 01/09/19 16:44 97.3 F L 73 18 117/60 95 01/09/19 16:20 95 01/09/19 15:15 94 01/09/19 15:13 60 01/09/19 15:09 98.0 F 59 L 18 129/88 H 95 General: Alert, Oriented x3, Cooperative HEENT: Atraumatic, PERRLA, EOMI, Normocephalic Neck: Supple, No JVD, Negative Carotid Bruits Lungs: Clear to auscultation, Normal air movement, No rhonchi, No wheeze, No rales Cardiovascular: Regular rate, Regular Rhythm, Normal S1, Normal S2, No murmurs Abdomen: Bowel Sounds Present, Soft, Non Tender, Non-Distended Extremities: No edema, Capillary Refill Less than 3 Seconds Skin: No rashes, No breakdown Musculoskeletal: No Tenderness to Palpation of Joints or Extremities, Arthritic Changes Neurological: Cranial nerves II-XII grossly intact, Deep Tendon Reflexes 2+/4 and Symmetrical, Neuro grossly intact Psych/Mental Status: Normal Affect, Appropriate Microbiology Past 72 Hours 01/09/19 10:01 Swab (Method) Nasal Screen MRSA/MSSA - Final Laboratory Results 01/10/19 05:24: WBC 12.3 H, RBC 2.88 L, Hgb 9.6 L, Hct 29.9 L, MCV 103.8 H, MCH 33.3 H, MCHC 32.1, RDW 13.2, RDW Differential 48.2 H, Plt Count 242, MPV 9.4 01/10/19 05:24: Sodium 140, Potassium 4.1, Chloride 104, Carbon Dioxide 28.0, Anion Gap 8, BUN 25 H, Creatinine 1.37 H, Estim Creat Clear Calc 51.67, Est GFR (MDRD) Af Amer 65, Est GFR (MDRD) Non-Af 53 L, BUN/Creatinine Ratio 18.2, Glucose 138 H, Calcium 8.0 L Current Medications Acetaminophen (Tylenol) 1,000 mg PO Q8 [facility] Last Admin: 01/10/19 05:40 Dose: 1,000 mg Amiodarone HCl (Cordarone) 200 mg PO DAILY [facility] Last Admin: 01/10/19 10:49 Dose: 200 mg Calcium/Vitamin D (Os-Emmanuel 500mg + D) [facility] Last Admin: 01/10/19 08:49 Dose: 1 tablet Carvedilol (Coreg) [facility] Last Admin: 01/10/19 08:50 Dose: 25 mg Cholecalciferol (Vitamin D) 2,000 unit PO DAILY@0800 [facility] Last Admin: 01/10/19 08:50 Dose: 2,000 unit Famotidine (Pepcid) 20 mg PO DAILY [facility] Last Admin: 01/10/19 08:50 Dose: 20 mg Folic Acid (Folic Acid) 1 mg PO DAILY@0800 [facility] Last Admin: 01/10/19 08:50 Dose: 1 mg Hydrochlorothiazide (Hctz) 25 mg PO DAILY [facility] Last Admin: 01/10/19 08:49 Dose: 25 mg Hydroxychloroquine Sulfate (Plaquenil) [facility] Last Admin: 01/10/19 08:50 Dose: 200 mg Ketorolac Tromethamine (Toradol) 15 mg IV Q6H PRN PRN PRN Reason: MILD-MOD PAIN (1-510) Losartan Potassium (Cozaar) 100 mg PO DAILY [facility] Last Admin: 01/10/19 08:49 Dose: 100 mg Meloxicam (Mobic) 7.5 mg PO BID [facility] Last Admin: 01/10/19 08:51 Dose: 7.5 mg Methotrexate (Methotrexate) 20 mg PO Mo@1000 [facility] Morphine Sulfate () 2 - 4 mg IV Q2H PRN PRN PRN Reason: SEVERE PAIN (6-10/10) Morphine Sulfate () 2 - 4 mg IV Q2H PRN PRN PRN Reason: SEVERE PAIN (6-10/10) Nutritional Formula (Lactose Free) (Glucerna Shake) 120 ml PO TIDCM [facility] Last Admin: 01/10/19 10:51 Dose: 120 ml Ondansetron HCl (Zofran) 4 mg IV Q8H PRN PRN PRN Reason: NAUSEA Oxycodone HCl (Oxyir) 5 - 10 mg PO Q4H PRN PRN PRN Reason: MOD-SEVERE PAIN (4-1010) Last Admin: 01/10/19 06:53 Dose: 10 mg Pantoprazole Sodium (Protonix) 40 mg PO DAILY [facility] Last Admin: 01/10/19 08:50 Dose: 40 mg Polyethylene Glycol (Miralax) 17 gm PO DAILY [facility] Last Admin: 01/10/19 08:49 Dose: 17 gm Promethazine HCl (Phenergan) 12.5 mg IM Q6H PRN PRN; Protocol PRN Reason: NAUSEA/VOMITING Rivaroxaban (Xarelto) 20 mg PO DAILY@1700 [facility] Senna/Docusate Sodium (Senokot-S, Yuliet-Colace) 2 tablet PO BID [facility] Last Admin: 01/10/19 08:49 Dose: 2 tablet Sodium Chloride () 5 - 15 ml IV UD PRN PRN Reason: SALINE FLUSH Medical Necessity - Tobacco Use Smoking Status: Never smoker Assessment/Plan All Active Problems (Last Reviewed 11/08/18 @ 14:38 by Felipe Harley MD) Hip fracture, left (Acute) Debility (Acute) Fall (Acute) Small bowel obstruction (Acute) Atrial fibrillation (Acute) The patient is a 70-year-old gentleman who was electively admitted after left total hip replacement after left hip fracture in November 2018 status post ORIF with pinning done by Dr. Zhu on 12/02/2018. After that, patient was not able to put weight and ambulate well therefore patient had elective left hip total replacement. Prior to that patient had right hip arthroplasty in 2010. 1. Elective left hip total replacement: Postop day 0. Pain management. PT and OT. Mild leukocytosis secondary to surgical stress/inflammation. Incentive spirometry. 2. Paroxysmal A. fib after small bowel obstruction laparotomy surgery: Heart rate is controlled. Patient is in normal sinus rhythm. On Xarelto and amiodarone. 3. Hypertension: Blood pressure is controlled. Continue home medication. On losartan/HCTZ 100-25 mg, carvedilol. 4. Anemia of chronic disease: Patient had slight drop in hemoglobin, 9.6/29.9 from baseline probably from hemodilution/mild surgical blood loss Other comorbidities include rheumatoid arthritis, BPH degenerative joint disease, constipation and morbid obesity: Home medication reconciliation done DVT prophylaxis: On Xarelto 20 mg daily. Microbiology Past 72 Hours 01/09/19 10:01 Swab (Method) Nasal Screen MRSA/MSSA - Final Laboratory Results 01/10/19 05:24: WBC 12.3 H, RBC 2.88 L, Hgb 9.6 L, Hct 29.9 L, MCV 103.8 H, MCH 33.3 H, MCHC 32.1, RDW 13.2, RDW Differential 48.2 H, Plt Count 242, MPV 9.4 01/10/19 05:24: Sodium 140, Potassium 4.1, Chloride 104, Carbon Dioxide 28.0, Anion Gap 8, BUN 25 H, Creatinine 1.37 H, Estim Creat Clear Calc 51.67, Est GFR (MDRD) Af Amer 65, Est GFR (MDRD) Non-Af 53 L, BUN/Creatinine Ratio 18.2, Glucose 138 H, Calcium 8.0 L Code Visit Inpatient E&M: 21936 Subs Hosp L2
[2019-01-10] MEDS: Rivaroxaban 20 MG Tablet PO (17:48)
[2019-01-11 03:55] VITALS: BP 109/62; PULSE 64; RESP 18; TEMP 36.8; O2SAT 93
[2019-01-11] MEDS: oxyCODONE 5 MG Tablet PO ×2 (05:44→07:47)
--- NOTE | 2019-01-11 05:45 | NURSING ---
Pt requested pain meds. Rated his pain 5 out of 10. Gave him 5 of oxy. Pt was upset there was only 1 pill. I explained that the amount of meds given depends on the pain rating. Pt stated that his pain is whatever it needs to be to get 2 pills. Pt states that I was supposed to be giving him the oxy every 4 hours. I explained that the med is given q4 prn.
--- NOTE | 2019-01-11 06:00 | NURSING ---
checked in on pt & he was sleeping
[2019-01-11 06:03] LABS: Hematocrit 29.1 % (40-54); Hemoglobin 9.1 g/dl (13.0-16.5); Mean Corp Hgb Conc 31.3 g/gl (32-36); Mean Corpuscular Hgb 32.9 pg (27.0-32.0); Mean Corpuscular Volume 105.1 fL (80-94); Mean Platelet Vol. 9.3 fl (6.2-12.0); Platelet Count 222 K/mm3 (150-450); RBC Distribution Width CV 13.4 % (11.6-14.6); RBC Distribution Width SD 49.4 fl (35.1-43.9); Red Blood Count 2.77 M/mm3 (4.6-6.2); White Blood Count 9.1 K/mm3 (4.4-11.0)
[2019-01-11 06:09] LABS: Scan Indicated on CBC? Y/N NO
[2019-01-11] MEDS: Acetaminophen 500 MG Tablet 1000 MG PO ×2 (06:45→14:58)
[2019-01-11 07:39] VITALS: O2SAT 91
[2019-01-11 08:00] VITALS: BP 112/57; PULSE 78; RESP 16; TEMP 36.4; O2SAT 96
[2019-01-11] MEDS: Carvedilol 25 MG Tablet PO ×2 (08:13→16:33)
[2019-01-11] MEDS: Amiodarone 200 MG Tablet PO (08:13)
[2019-01-11] MEDS: Hydroxychloroquine 200 MG Tablet PO ×2 (08:13→16:33)
[2019-01-11] MEDS: Losartan Potassium 100 MG Tablet PO (08:13)
[2019-01-11] MEDS: Famotidine 20 MG Tablet PO (08:14)
[2019-01-11] MEDS: Glucerna Shake 120 ML LIQUID PO ×3 (08:19→16:34)
[2019-01-11] MEDS: hydroCHLOROthiazide 25 MG Tablet PO (08:19)
[2019-01-11] MEDS: Calcium Carb/Vitamin D 1 TABLET Tablet PO (08:19)
[2019-01-11] MEDS: Folic Acid 1 MG Tablet PO (08:19)
[2019-01-11] MEDS: Pantoprazole Sodium 40 MG Tablet PO (08:20)
[2019-01-11] MEDS: Polyethylene Glycol 3350 17 GM PACKET PO (08:20)
[2019-01-11] MEDS: Senna/Docusate Sodium 1 Tablet 2 TABLET PO (08:20)
[2019-01-11] MEDS: Meloxicam 7.5 MG Tablet PO (08:20)
--- NOTE | 2019-01-11 10:42 | PN_ITS ---
Subjective: Patient complain of mild shortness of breath on walking in rehab. Patient denies chronic lung disease including smoking, COPD/asthma. Patient has mild anemia. Chest x-ray PA and lateral ordered Vitals/I&O's: Vital Signs Temp Pulse Resp BP Pulse Ox 97.6 F L 78 16 112/57 L 96 01/11/19 08:00 01/11/19 08:00 01/11/19 08:00 01/11/19 08:00 01/11/19 08:00 Oxygen Flow Rate (L/min) 2 Oxygen Delivery Method Room Air Weight: 291 lb 8.722 oz Body Mass Index (BMI) 37.4 Intake and Output for Last 24 Hours 01/09/19 01/10/19 01/11/19 23:59 23:59 23:59 Intake Total 2150 / 2150 1771 / 1771 200 / 200 Output Total 1425 / 1425 625 / 625 Balance 2150 / 2150 346 / 346 -425 / -425 General: Alert, Oriented x3, Cooperative HEENT: Atraumatic, PERRLA, EOMI, Normocephalic Neck: Supple, No JVD, Negative Carotid Bruits Lungs: Clear to auscultation, No rhonchi, No wheeze, No rales, Diminished - Air entry is diminished on the left lung base, - - No shifting dullness found on exam Cardiovascular: Regular rate, Regular Rhythm, Normal S1, Normal S2, No murmurs Abdomen: Bowel Sounds Present, Soft, Non Tender, Non-Distended Extremities: No edema, Capillary Refill Less than 3 Seconds Skin: No rashes, No breakdown Musculoskeletal: No Tenderness to Palpation of Joints or Extremities, Arthritic Changes, - - Left hip surgical dressing is dry Neurological: Cranial nerves II-XII grossly intact Psych/Mental Status: Normal Affect, Appropriate Microbiology Past 72 Hours 01/09/19 10:01 Swab (Method) Nasal Screen MRSA/MSSA - Final Laboratory Results 01/11/19 05:36: WBC 9.1, RBC 2.77 L, Hgb 9.1 L, Hct 29.1 L, MCV 105.1 H, MCH 32.9 H, MCHC 31.3 L, RDW 13.4, RDW Differential 49.4 H, Plt Count 222, MPV 9.3 Current Medications Acetaminophen (Tylenol) 1,000 mg PO Q8 [facility] Last Admin: 01/11/19 06:45 Dose: 1,000 mg Amiodarone HCl (Cordarone) 200 mg PO DAILY [facility] Last Admin: 01/11/19 08:13 Dose: 200 mg Calcium/Vitamin D (Os-Emmanuel 500mg + D) [facility] Last Admin: 01/11/19 08:19 Dose: 1 tablet [facility]vedilol (Coreg) [facility] Last Admin: 01/11/19 08:13 Dose: 25 mg Cholecalciferol (Vitamin D) 2,000 unit PO DAILY@0800 [facility] Last Admin: 01/11/19 08:19 Dose: 2,000 unit Famotidine (Pepcid) 20 mg PO DAILY [facility] Last Admin: 01/11/19 08:14 Dose: 20 mg Folic Acid (Folic Acid) 1 mg PO DAILY@0800 [facility] Last Admin: 01/11/19 08:19 Dose: 1 mg Hydrochlorothiazide (Hctz) 25 mg PO DAILY [facility] Last Admin: 01/11/19 08:19 Dose: 25 mg Hydroxychloroquine Sulfate (Plaquenil) [facility] Last Admin: 01/11/19 08:13 Dose: 200 mg Ketorolac Tromethamine (Toradol) 15 mg IV Q6H PRN PRN PRN Reason: MILD-MOD PAIN (1-5/10) Losartan Potassium (Cozaar) 100 mg PO DAILY [facility] Last Admin: 01/11/19 08:13 Dose: 100 mg Meloxicam (Mobic) 7.5 mg PO BID [facility] Last Admin: 01/11/19 08:20 Dose: 7.5 mg Methotrexate (Methotrexate) 20 mg PO Mo@1000 [facility] Morphine Sulfate () 2 - 4 mg IV Q2H PRN PRN PRN Reason: SEVERE PAIN (6-10/10) Morphine Sulfate () 2 - 4 mg IV Q2H PRN PRN PRN Reason: SEVERE PAIN (6-10/10) Nutritional Formula (Lactose Free) (Glucerna Shake) 120 ml PO TIDCM [facility] Last Admin: 01/11/19 08:19 Dose: 120 ml Ondansetron HCl (Zofran) 4 mg IV Q8H PRN PRN PRN Reason: NAUSEA Oxycodone HCl (Oxyir) 5 - 10 mg PO Q4H PRN PRN PRN Reason: MOD-SEVERE PAIN (4-10/10) Last Admin: 01/11/19 07:47 Dose: 5 mg Pantoprazole Sodium (Protonix) 40 mg PO DAILY [facility] Last Admin: 01/11/19 08:20 Dose: 40 mg Polyethylene Glycol (Miralax) 17 gm PO DAILY [facility] Last Admin: 01/11/19 08:20 Dose: 17 gm Promethazine HCl (Phenergan) 12.5 mg IM Q6H PRN PRN; Protocol PRN Reason: NAUSEA/VOMITING Rivaroxaban (Xarelto) 20 mg PO DAILY@1700 [facility] Last Admin: 01/10/19 17:48 Dose: 20 mg Senna/Docusate Sodium (Senokot-S, Yuliet-Colace) 2 tablet PO BID [facility] Last Admin: 01/11/19 08:20 Dose: 2 tablet Sodium Chloride () 5 - 15 ml IV UD PRN PRN Reason: SALINE FLUSH Medical Necessity - Tobacco Use Smoking Status: Never smoker Assessment/Plan All Active Problems (Last Reviewed 11/08/18 @ 14:38 by Felipe Harley MD) Hip fracture, left (Acute) Debility (Acute) Fall (Acute) Small bowel obstruction (Acute) Atrial fibrillation (Acute) The patient is a 70-year-old gentleman who was electively admitted after left total hip replacement after left hip fracture in November 2018 status post ORIF with pinning done by Dr. Zhu on 12/02/2018. After that, patient was not able to put weight and ambulate well therefore patient had elective left hip total replacement. Prior to that patient had right hip arthroplasty in 2010. 1. Elective left hip total replacement: Postop day 0. Pain management. PT and OT. Mild leukocytosis secondary to surgical stress/inflammation. Incentive spirometry. 2. Mild exertional shortness of breath probably secondary to anemia: No fever, tachycardia, tachypnea or hypoxia. Patient pulse ox 96% on room air. Chest x- ray and PA lateral shows atelectasis in the left lung base similar to previous chest x-ray on December 09, [address] chest 10/2018. Advised continue incentive spirometry. Patient is stable to be transferred to acute rehab. Paroxysmal A. fib after small bowel obstruction laparotomy surgery: Heart rate is controlled. Patient is in normal sinus rhythm. On Xarelto and amiodarone. 3. Hypertension: Blood pressure is controlled. Continue home medication. On losartan/HCTZ 100-25 mg, carvedilol. 4. Anemia of chronic disease: Patient had slight drop in hemoglobin, 9.6/29.9 from baseline probably from hemodilution/mild surgical blood loss Other comorbidities include rheumatoid arthritis, BPH degenerative joint disease, constipation and morbid obesity: Home medication reconciliation done DVT prophylaxis: On Xarelto 20 mg daily. Microbiology Past 72 Hours 01/09/19 10:01 Swab (Method) Nasal Screen MRSA/MSSA - Final Laboratory Results 01/10/19 05:24: WBC 12.3 H, RBC 2.88 L, Hgb 9.6 L, Hct 29.9 L, MCV 103.8 H, MCH 33.3 H, MCHC 32.1, RDW 13.2, RDW Differential 48.2 H, Plt Count 242, MPV 9.4 01/10/19 05:24: Sodium 140, Potassium 4.1, Chloride 104, Carbon Dioxide 28.0, Anion Gap 8, BUN 25 H, Creatinine 1.37 H, Estim Creat Clear Calc 51.67, Est GFR (MDRD) Af Amer 65, Est GFR (MDRD) Non-Af 53 L, BUN/Creatinine Ratio 18.2, Glucose 138 H, Calcium 8.0 L Clinical Impression(s) from Imaging Studies Hip X-Ray 01/09/19 07:05 IMPRESSION: Post left total hip arthroplasty. Code Visit Inpatient E&M: 65513 Subs Hosp L2
--- NOTE | 2019-01-11 10:54 | RAD_ITS ---
STUDY: X-RAY CHEST REASON FOR EXAM: Male, 78 years old. Shortness of breath, recent hip surgery TECHNIQUE: PA and lateral views of the chest. COMPARISON: Prior study 12/09/2018 FINDINGS: There is left basilar atelectasis. There is a moderate left-sided pleural effusion which may be loculated, increased from the previous study. Normal size heart. Normal mediastinum and spring. Normal visualized pulmonary arteries. There are calcified plaques of the aortic arch. There are diffuse degenerative changes of the visualized thoracic spine. There are degenerative changes of the shoulder joints. There is no demonstrated abnormality of the visualized soft tissue structures of the upper abdomen. RAD/Chest PA and Lateral IMPRESSION: Moderate left-sided effusion, increased from the previous study. This may be loculated. Left basilar atelectasis. Calcified plaques of the aortic arch. Degenerative changes of the thoracic spine. Electronically Signed: Ankur Rudolph MD at 16:52 EST , Service support ,
[2019-01-11] MEDS: Ferrous Sulfate 325 MG Tablet PO ×2 (11:20→16:33)
[2019-01-11 11:34] LABS: Vitamin B12 804 pg/mL (211-911)
--- NOTE | 2019-01-11 12:15 | PN.ORTHO_ITS ---
Subjective: Patient is doing well. No events overnight. He has stated he is much more comfortable after this procedure than the percutaneous pinning. No fevers chills or night sweats. No chest pain, no shortness of breath. No calf pain is noted. Objective: Postoperative radiographs were reviewed showing well aligned well-placed left total hip replacement. - Physical Exam General: Alert, Oriented x3, Cooperative Extremities: - - Left lower extremity: Dressing over the lateral incision was saturated removed incision underneath is clean and dry. Anterior dressing is clean dry and intact Sensations intact to light touch saphenous, sural, superficial peroneal, deep peroneal, and tibial distributions Motors intact EHL, DF, PF calves are soft and supple Vital Signs Temp Pulse Resp BP Pulse Ox 97.6 F L 78 16 112/57 L 96 01/11/19 08:00 01/11/19 08:00 01/11/19 08:00 01/11/19 08:00 01/11/19 08:00 Oxygen Flow Rate (L/min) 2 Oxygen Delivery Method Room Air Weight: 291 lb 8.722 oz Body Mass Index (BMI) 37.4 Intake and Output for Last 24 Hours 01/09/19 01/10/19 01/11/19 23:59 23:59 23:59 Intake Total 2150 / 2150 1771 / 1771 620 / 620 Output Total 1425 / 1425 1050 / 1050 Balance 2150 / 2150 346 / 346 -430 / -430 Microbiology Past 72 Hours 01/09/19 10:01 Nasal Screen MRSA/MSSA - Final Swab (Method) Laboratory Tests Past 24 Hrs 01/11/19 01/11/19 01/11/19 05:36 05:36 05:36 WBC 9.1 RBC 2.77 L Hgb 9.1 L Hct 29.1 L MCV 105.1 H MCH 32.9 H MCHC 31.3 L RDW 13.4 RDW Differential 49.4 H Plt Count 222 MPV 9.3 Vitamin B12 804 Folate 16.40 Medical Necessity - Tobacco Use Smoking Status: Never smoker Assessment/Plan All Active Problems (Last Reviewed 11/08/18 @ 14:38 by Felipe Harley MD) Hip fracture, left (Acute) Debility (Acute) Fall (Acute) Small bowel obstruction (Acute) Atrial fibrillation (Acute) 1. S/P conversion previous hip surgery to left total hip arthroplasty POD #2 2. Continue Pain Medications: Tylenol and OxyIR 3. DVT Prophylaxis: Xarelto 4. PT/OT: Weightbearing as tolerated 5. Anemia secondary to acute blood loss postoperatively: HB: 9.1, asymptomatic. Patient's hemoglobin on January 04, 2019 was 10.5. 6. Encouraged Incentive Spirometry 7. Continue postoperative medical management per medicine, appreciate medical management 8. Disposition: Plan is for discharge to rehab today at [facility]. Patient will follow-up in the office in 2 weeks. [facility] Office:
--- NOTE | 2019-01-11 13:39 | CASEMGMT ---
Social Work Note SW placed a call to Natalia with [facility] and informed her pt is discharging to [facility] today. Plan: Today Shivani Watts ELECTRICIAN SUBSTATION, POSTMASTER
[2019-01-11 15:49] VITALS: BP 124/63; PULSE 72; RESP 14; TEMP 36.4; O2SAT 94
--- NOTE | 2019-01-11 16:00 | PCM.HP.STD ---
Problem List (1) Paroxysmal A-fib Status: Chronic (2) Hip fracture, left Status: Chronic (3) Obesity Status: Chronic (4) Debility Status: Acute (5) Fall Status: Chronic (6) Rheumatoid arthritis Status: Chronic (7) Small bowel obstruction Status: Resolved (8) Atrial fibrillation Status: Chronic Qualifiers: (9) HTN (hypertension) Status: Chronic Qualifiers: History of Present Illness Date of Admission: 01/11/19 Chief Complaint: Debility s/p left total hip replacement The patient is a 78 year old M with PMH of HTN, RA, A. fib (on Xarelto), H/O small bowel obstruction, mechanical fall with impacted nondisplaced subcapital fracture of left hip S/P closed reduction with pinning of left hip by Dr. Zhu on 12/10/2018 now admitted to [facility] on 01/11/2019 with debility S/P conversion of previous hip surgery to total hip replacement by Dr. Zhu on 01/09/2019, for greater than 3 hours therapy daily with the aim of returning back home at or near his prior level of functional independence. Patient had a fall in November 2017 following which he had left hip pinning done and was in the rehab following that, later discharged to [place] at that time, but later patient was not able to put weight and had continued pain,so due to his failed left hip pinning, he underwent elective total left hip replacement as noted above. He lives with his , uses cane and a Rollator to ambulate, denies any frequent falls, does drive and does not need any assistance for his ADLs. He lives in a [place], and has 2-3 steps going into the house. Per patient he has a history of RA and is on methotrexate 2.5 mg 8 tablets once weekly for the same. At present patient denies any new onset of headache, dizziness, visual disturbances, speech disturbances, new onset focal motor weakness or sensory loss. He had some SOB this morning for which he had Cxray the report of which is still pending. Past Medical History Past Medical History (Chronic Problems): Chronic Problems (Last Reviewed 11/08/18 @ 14:38 by Felipe Harley MD) Paroxysmal A-fib (Chronic) Hip fracture, left (Chronic) Obesity (Chronic) Fall (Chronic) Rheumatoid arthritis (Chronic) Atrial fibrillation (Chronic) HTN (hypertension) (Chronic) Medical History: Medical History (Last Reviewed 11/08/18 @ 14:38 by Felipe Harley MD) Rheumatoid arthritis M06.9 HTN (hypertension) I10 Allergies Penicillins Allergy (Severe, Verified 01/08/19 09:31) rash Home Medications: Ambulatory Orders Medication Instructions Recorded Folic Acid 1 mg PO DAILY 11/07/18 Hydroxychloroquine [Plaquenil] 200 mg PO BID 11/07/18 Losartan/Hydrochlorothiazide 1 tab PO DAILY 11/07/18 [Losartan-Hctz 100-25 mg Tab] Meloxicam 7.5 mg PO BID 11/07/18 Methotrexate 8 tab PO MO 11/07/18 Amiodarone HCl [Cordarone] 200 mg PO DAILY 12/13/18 Carvedilol [Coreg (Beta Tressa)] 25 mg PO BID 12/13/18 Cholecalciferol (VIT D3) [Vitamin 2,000 unit PO DAILY@0800 12/13/18 D3] Polyethylene Glycol 3350 [Miralax] 17 gm PO DAILY 12/13/18 Rivaroxaban [Xarelto] 20 mg PO DAILY 12/13/18 Calcium Carbonate/Vitamin D3 1 each PO DAILY 01/08/19 [Os-Emmanuel 500-Vit D3 600 Caplet] Pantoprazole Sodium [Protonix] 40 mg PO DAILY 01/08/19 Acetaminophen [Tylenol] 1,000 mg PO Q8 #90 tab 01/10/19 Oxycodone [Oxyir] 5 - 10 mg PO Q4H PRN PRN 5 Days 01/10/19 #45 tab Surgical History: Surgical History (Last Updated 11/26/18 @ 11:13 by Silvana Millan) History of bowel resection Onset Date: 11/08/18 Z98.890, Z90.49 History of carpal tunnel release of both wrists Z98.890 History of cholecystectomy Z90.49 History of right hip replacement Z96.641 partial History of rotator cuff surgery Z98.890 left Status post trigger finger release Z98.890 right hand Status post wrist surgery Z98.890 left Surgical History: cholecystectomy, - - Left hip replacement; facial surgery for cancer; plate placed in left forearm; and left rotator cuff surgery; Psychiatric History: No pertinent psych hx Lives: Spouse/ Significant Other Smoking Status: Never smoker Alcohol: None Drugs: None - *Family History Maternal Family History: Family History (Last Reviewed 11/26/18 @ 11:13 by Silvana Millan) Mother Pancreatic cancer Father Heart problem Sister Breast cancer History Items: Cancer Review of Systems Constitutional: Reports: - - complete ROS negative except as documented in HPI VTE Information - Inpt Only VTE Present on Admission: No VTE Mechan Device Prophylaxis: SCD's, Knee High TIMOTHY Hose VTE Pharm Prophylaxis ordered?: Yes - Physical Exam General: Alert HEENT: Normocephalic Neck: Supple Lungs: Normal air movement Cardiovascular: Normal S1, Normal S2 Abdomen: Bowel Sounds Present Extremities: No cyanosis Neurological: Cranial nerves II-XII grossly intact, Deep Tendon Reflexes 2+/4 and Symmetrical, Neuro grossly intact, Motor Exam 5/5 strength throughout, Muscle tone normal, Sensory exam intact to light touch and pain, Coordination normal Psych/Mental Status: Normal Affect Vital Signs Temp Pulse Resp BP Pulse Ox 97.6 F L 78 16 112/57 L 96 01/11/19 08:00 01/11/19 08:00 01/11/19 08:00 01/11/19 08:00 01/11/19 08:00 Oxygen Flow Rate (L/min) 2 Oxygen Delivery Method Room Air Weight: 132.243 kg Body Mass Index (BMI) 37.4 Intake and Output for Last 24 Hours 01/09/19 01/10/19 01/11/19 23:59 23:59 23:59 Intake Total 2150 / 2150 1771 / 1771 620 / 620 Output Total 1425 / 1425 1050 / 1050 Balance 2150 / 2150 346 / 346 -430 / -430 Microbiology Past 72 Hours 01/09/19 10:01 Nasal Screen MRSA/MSSA - Final Swab (Method) Laboratory Tests Past 24 Hrs 01/11/19 01/11/19 01/11/19 05:36 05:36 05:36 WBC 9.1 RBC 2.77 L Hgb 9.1 L Hct 29.1 L MCV 105.1 H MCH 32.9 H MCHC 31.3 L RDW 13.4 RDW Differential 49.4 H Plt Count 222 MPV 9.3 Vitamin B12 804 Folate 16.40 Assessment/Plan All Active Problems (Last Reviewed 11/08/18 @ 14:38 by Felipe Harley MD) Debility (Acute) Small bowel obstruction (Resolved) The patient is a 78 year old M with PMH of HTN, RA, A. fib (on Xarelto), H/O small bowel obstruction, mechanical fall with impacted nondisplaced subcapital fracture of left hip S/P closed reduction with pinning of left hip by Dr. Zhu on 12/10/2018 now admitted to [facility] on 01/11/2019 with debility S/P conversion of previous hip surgery to total hip replacement by Dr. Zhu on 01/09/2019, for greater than 3 hours therapy daily with the aim of returning back home at or near his prior level of functional independence. Patient had a fall in November 2017 following which he had left hip pinning done and was in the rehab following that, later discharged to [place] at that time, but later patient was not able to put weight and had continued pain,so due to his failed left hip pinning, he underwent elective total left hip replacement as noted above. He lives with his , uses cane and a Rollator to ambulate, denies any frequent falls, does drive and does not need any assistance for his ADLs. He lives in a [place] house, and has 2-3 steps going into the house. Per patient he has a history of RA and is on methotrexate 2.5 mg 8 tablets once weekly for the same. At present patient denies any new onset of headache, dizziness, visual disturbances, speech disturbances, new onset focal motor weakness or sensory loss. He had some SOB this morning for which he had Cxray the report of which is still pending. Plan ?PT for gait stability and balance ?OT for ADLs ?Analgesics as needed ?Bowel protocol ?Total left left replacement, by Dr. Zhu on 01/09/2019?per surgery recommendation weightbearing as tolerated. Further management of left hip replacement per orthopedic surgery recommendation. Further postsurgical management of left hip replacement per orthopedic surgery recommendation. ?HTN?Coreg 25 mg p.o. twice daily, hydrochlorothiazide 25 mg daily, losartan 100 mg p.o. daily ?A. fib?on amiodarone and Xarelto 20 mg once daily ?RA?on methotrexate 2.5 mg p.o. 8 tablets once a week, on folic acid and on Plaquenil 200 mg p.o. twice daily ?GI/DVT prophylaxis?on Famotidine and Xarelto 20 mg p.o. once daily ?Fall precautions ?Further medical management per hospitalist recommendation. Hospitalist consult ?Follow-up with PCP and orthopedic surgeon as an outpatient following discharge. Code Visit Inpatient E&M: 37737 Init Hosp L3
--- NOTE | 2019-01-11 16:29 | NURSING ---
report called to matthew in rehab unit, pt will go to room 403
[2019-01-11] MEDS: Rivaroxaban 20 MG Tablet PO (16:33)
== END 2019-01-11 17:05 | DRG 469 ==
PROVIDERS: Admitting Provider Specialist; Referring Provider Specialist; Visit Provider Internal Medicine
PROC: 0SRB02A Replacement of Left Hip Joint with Metal on Polyethylene Synthetic Substitute, Uncemented, Open Approach (ICD-10-PCS; CPT 27125; principal; 2019-01-09 10:25)
DX: M16.12 Unilateral primary osteoarthritis, left hip (principal); S72.012A Unspecified intracapsular fracture of left femur, initial encounter for closed fracture; D62 Acute posthemorrhagic anemia; T84.9XXA Unspecified complication of internal orthopedic prosthetic device, implant and graft, initial encounter; M06.9 Rheumatoid arthritis, unspecified; N40.0 Benign prostatic hyperplasia without lower urinary tract symptoms; I10 Essential (primary) hypertension; E66.01 Morbid (severe) obesity due to excess calories; Z68.37 Body mass index [BMI] 37.0-37.9, adult; Z96.641 Presence of right artificial hip joint; X58.XXXA Exposure to other specified factors, initial encounter; I48.0 Paroxysmal atrial fibrillation; Z79.01 Long term (current) use of anticoagulants
CPT/HCPCS: 36415; 71046; 73501; 73502; 76000; 80048; 82607; 82746; 85027; 87081; 97110; 97116; 97162; 97165; 97530; 97535; 99251; C1776; J7120; G0463; J2405

== ENCOUNTER 2019-01-11 17:15 | Inpatient (IN) | payer MEDICARE, BC, SELFPAY ==
[2019-01-09 15:03] VITALS: BMI 37.4
[2019-01-11 17:38] VITALS: BMI 37.4
[2019-01-11] MEDS: oxyCODONE 5 MG Tablet PO (18:36)
[2019-01-11 21:18] VITALS: BP 111/58; PULSE 72; RESP 16; TEMP 36.7; O2SAT 93
[2019-01-11] MEDS: Senna/Docusate Sodium 1 Tablet 2 TABLET PO (22:46)
[2019-01-11] MEDS: Calcium Carbonate 500 MG Tablet PO (22:46)
[2019-01-11] MEDS: Acetaminophen 325 MG Tablet 650 MG PO (22:46)
[2019-01-11] MEDS: Hydroxychloroquine 200 MG Tablet PO (22:46)
[2019-01-11] MEDS: Carvedilol 25 MG Tablet PO (22:46)
--- NOTE | 2019-01-11 22:46 | PCM.RU.PYE ---
Admission Information Status Changes from Prescreening?: No changes Identified Actual Problem List:: Mobility Impaired, Self Care Deficit Potential Problem List:: DVT, Bleeding, Infection, UTI, Aspiration, Falls, Skin Integrity, Depression Risk of Complications DVT: LMWH, TIMOTHY Hose, Sequential Compression Device Bleeding: Monitor Lab Values, Nursing to Teach Precautions for anti-coagulation therapy., Wound, if applicable, to be assessed every shift., Stroke patients assessed for lethargy or change in status. Infection: Clinical Staff to Monitor for S/S of infection:, S/S of infection include fever, redness, warmth, etc. Urinary Tract Infection: Monitor for frequency, burning, discomfort, or incontinence., Nursing will obtain urine sample for urinalysis and C&S when ordered. Aspiration: Clinical staff will monitor for coughing, drooling, congestion., Speech will evaluate swallowing and dsyphasia., Nursing will monitor patient swallowing during meals. Falls: Patient will be evaluated for Fall Precautions, Patient will be placed on Fall Precautions as indicated per protocol. Skin Breakdown: Nursing will assess skin daily using assessment tool., Nursing will place on Skin Breakdown Precautions as indicated. Pain: Clinical staff will assess patient's pain level per protocol., Medications will be given, if needed, and the pain level reassessed., Other methods: Massage, distraction, decrease stimulus, etc. used PRN. Plan of Care Patient requires physician specializing in physical medicine and rehab oversight to provide close medical supervision of rehab issues including: Pain Management, Sleep Problems, Bowel and Bladder, Medical and co-morbidity Management, DVT prophylaxis, Rehabilitation Leadership, Coordination of treatment team Patient needs Physical Therapy: For a minimum of 1 hour, At least 5 out of 7 days Patient needs Physical Therapy to improve:: Mobility, Mobility, Mobility, Strengthening, Transfers, Stretching, ROM, Endurance, Stairs, Gait, Balance Patient needs Occupational Therapy: For a minimum of 1 hour, At least 5 out of 7 days Patient needs Occupational Therapy to improve ADL's incl.: Eating, Grooming, Bathing, Dressing, Toileting, Toilet transfers, Community Reintegration, Higher functioning activities, Household tasks, Adaptive Equipment, Splinting, Other activities as determined Patient requires speech therapy: For a minimum of 1 hour, At least 5 out of 7 days Patient requires speech therapy for: Swallowing, Cognition, Language Skills, Compensatory Strategies Patient requires 24/ Rehabilitation Nursing for: Pain Issues, Identifying and preventing risk factors, Monitoring and reporting current medical conditions, Assisting with ambulation, transfer, and all ADL's, Teaching patients about disease process and medications, Family teaching, Providing safe environment, Bowel and Bladder Issues, Skin integrity, Medication Management Patient needs [employer]/ Case Management for: Discharge Planning, Arranging Home Equipment or Services, Family Interventions Patient needs Dietary and Nutrition Services for: Adequate Nutrition, Nutritional Supplements, Nutritional Education Goals Patient will remain: free from falls, or injury at time of discharge. Patient will perform bed mobility at: MOD I level of assist. Patient will complete transfers from bed to chair at: MOD I level of assist. Patient will ambulate: 100 feet, with MOD I assist, with LRD Patient will complete upper body dressing at: MOD I level of assist. Patient will complete lower body dressing at: MOD I level of assist. Patient will complete toileting at: MOD I level of assist. Patient will perform bathing at: MOD I level of assist. Patient will complete grooming at: MOD I level of assist. Patient will complete home management skills at: MOD I level of assist. Patient will achieve: 12 stairs, at MOD I assist Patient will have pain level of: of 3 or less Patient's skin will: remain intact, free from infection. Patient will receive: adequate nutrition. Discharge Planning Pt Prognosis for Sig. Practical Improv. w/in Reasonable Time: Good Estimated Length of stay (days): 20 Anticipated D/C Destination: Home Was Preadmission Assessment Accurate?: Yes
[2019-01-12] MEDS: oxyCODONE 5 MG Tablet PO ×4 (00:46→20:05)
--- NOTE | 2019-01-12 04:32 | NURSING ---
Reviewed and agree with LPNs fims and handoff
[2019-01-12] MEDS: Acetaminophen 325 MG Tablet 650 MG PO ×3 (05:45→20:00)
[2019-01-12 07:00] VITALS: BP 139/63; PULSE 76; RESP 18; TEMP 36.6; O2SAT 3
[2019-01-12 07:08] LABS: Absolute Lymphocyte Count 1.61 X10^3/ul (0.83-4.51); Absolute Neutrophil Count 6.6 X10^3/uL (2.0-7.7); Basophil# 0.02 X10^3/uL; Basophil% 0.2 % (0-1); Eosinophil# 0.34 X10^3/uL; Eosinophils% 3.6 % (0-5); Hematocrit 28.9 % (40-54); Hemoglobin 9.1 g/dl (13.0-16.5); Lymphocyte # 1.61 X10^3/ul (4.0); Mean Corp Hgb Conc 31.5 g/gl (32-36); Mean Corpuscular Hgb 32.9 pg (27.0-32.0); Mean Corpuscular Volume 104.3 fL (80-94); Mean Platelet Vol. 9.3 fl (6.2-12.0); Monocyte% 9.5 % (0-10); Neutrophil # 6.55 X10^3/uL (2.7-7.7); Neutrophil % 69.4 % (47-70); Platelet Count 210 K/mm3 (150-450); RBC Distribution Width CV 14.3 % (11.6-14.6); RBC Distribution Width SD 53.4 fl (35.1-43.9); Red Blood Count 2.77 M/mm3 (4.6-6.2); White Blood Count 9.5 K/mm3 (4.4-11.0)
[2019-01-12 07:10] LABS: POSITIVE COUNT NO; POSITIVE DIFFERENTIAL NO; POSITIVE MORPHOLOGY NO
[2019-01-12 07:26] LABS: ALB/GLOB Ratio 0.8 RATIO (0.9-2.4); AST(SGOT) 14 U/L (15-37); Alanine Aminotransfer ALT/SGPT 15 U/L (16-61); Albumin, Serum 2.4 g/dL (3.2-5.0); Alkaline Phosphatase 51 U/L (45-117); Anion Gap 5 (5-15); BUN 24 mg/dL (7-18); BUN/Creat Ratio 21.4 RATIO (10-20); Chloride 105 mmol/L (98-107); Creatinine, Serum 1.12 mg/dL (0.70-1.30); EST Glomerular Filtration Rate 67 mL/min (>60); Est Glom Filt Rate - Afr Amer 81 mL/min (>60); Globulin 3.2 g/dL (2.2-4.2); Glucose 91 mg/dL (74-106); Potassium 4.1 mmol/L (3.5-5.1); Protein, Total 5.6 g/dL (6.4-8.2); Sodium Level 142 mmol/L (136-145)
[2019-01-12] MEDS: Pantoprazole Sodium 40 MG Tablet PO (08:09)
[2019-01-12] MEDS: Senna/Docusate Sodium 1 Tablet 2 TABLET PO ×2 (08:09→20:00)
[2019-01-12] MEDS: Calcium Carbonate 500 MG Tablet PO ×2 (08:09→17:05)
[2019-01-12] MEDS: hydroCHLOROthiazide 25 MG Tablet PO (08:09)
[2019-01-12] MEDS: Losartan Potassium 100 MG Tablet PO (08:09)
[2019-01-12] MEDS: Carvedilol 25 MG Tablet PO ×2 (08:09→20:00)
[2019-01-12] MEDS: Amiodarone 200 MG Tablet PO (08:09)
[2019-01-12] MEDS: Folic Acid 1 MG Tablet PO (08:09)
[2019-01-12] MEDS: Hydroxychloroquine 200 MG Tablet PO ×2 (08:09→20:00)
[2019-01-12] MEDS: Polyethylene Glycol 3350 17 GM PACKET PO (08:18)
[2019-01-12 12:30] VITALS: O2SAT 92
--- NOTE | 2019-01-12 15:12 | PCM.PN.HOSP ---
Subjective: Patient chest x-ray report reviewed. It is reported as loculated moderate pleural effusion. Patient had a small left pleural effusion which is increased in size. Vitals/I&O's: Vital Signs Temp Pulse Resp BP Pulse Ox 97.9 F 76 18 139/63 H 92 01/12/19 07:00 01/12/19 07:00 01/12/19 07:00 01/12/19 07:00 01/12/19 12:30 Oxygen Flow Rate (L/min) 2 Oxygen Delivery Method Nasal Cannula Weight: 291 lb 8.628 oz Body Mass Index (BMI) 37.4 Intake and Output for Last 24 Hours 01/10/19 01/11/19 01/12/19 23:59 23:59 23:59 Intake Total 430 / 430 1020 / 1020 Output Total 500 / 500 Balance 430 / 430 520 / 520 General: Alert, Oriented x3, Cooperative HEENT: Atraumatic, PERRLA, EOMI, Normocephalic Neck: Supple, No JVD, Negative Carotid Bruits Lungs: Clear to auscultation, No rhonchi, No wheeze, No rales, Diminished - Air entry is diminished in posterior left base Cardiovascular: Regular rate, Regular Rhythm, Normal S1, Normal S2, No murmurs Abdomen: Bowel Sounds Present, Soft, Non Tender, Non-Distended Extremities: No edema, Capillary Refill Less than 3 Seconds Skin: No rashes, No breakdown Musculoskeletal: No Tenderness to Palpation of Joints or Extremities, Arthritic Changes, Muscle Wasting Lymphatic: No Cervical, Supraclavicular, or Inguinal Adenopathy Neurological: Cranial nerves II-XII grossly intact, Deep Tendon Reflexes 2+/4 and Symmetrical, Neuro grossly intact Psych/Mental Status: Normal Affect, Appropriate Laboratory Results 01/12/19 06:30: WBC 9.5, RBC 2.77 L, Hgb 9.1 L, Hct 28.9 L, MCV 104.3 H, MCH 32.9 H, MCHC 31.5 L, RDW 14.3, RDW Differential 53.4 H, Plt Count 210, MPV 9.3, Immature Gran % (Auto) 0.300, Neut % (Auto) 69.4, Lymph % (Auto) 17.0 L, [place] % (Auto) 9.5, Eos % (Auto) 3.6, Baso % (Auto) 0.2, Absolute Neuts (auto) 6.6, Absolute Lymphs (auto) 1.61, Total Counted Not Reportable 01/12/19 06:30: Sodium 142, Potassium 4.1, Chloride 105, Carbon Dioxide 32.0, Anion Gap 5, BUN 24 H, Creatinine 1.12, Estim Creat Clear Calc 63.20, Est GFR (MDRD) Af Amer 81, Est GFR (MDRD) Non-Af 67, BUN/Creatinine Ratio 21.4 H, Glucose 91, Calcium 8.0 L, Total Bilirubin 0.40, AST 14 L, ALT 15 L, Alkaline Phosphatase 51, Total Protein 5.6 L, Albumin 2.4 L, Globulin 3.2, Albumin/Globulin Ratio 0.8 L Current Medications Acetaminophen (Tylenol) 650 mg PO Q8 [facility] Last Admin: 01/12/19 12:44 Dose: 650 mg Amiodarone HCl (Cordarone) 200 mg PO DAILY@0800 [facility] Last Admin: 01/12/19 08:09 Dose: 200 mg Bisacodyl (Dulcolax) 10 mg RECTAL .PRN X 1 PRN PRN Reason: Constipation Calcium Carbonate (Tums) 500 mg PO BIDCM [facility] Last Admin: 01/12/19 08:09 Dose: 500 mg Carvedilol (Coreg) 25 mg PO BID [facility] Last Admin: 01/12/19 08:09 Dose: 25 mg Cholecalciferol (Vitamin D) 2,000 unit PO DAILY@0800 [facility] Last Admin: 01/12/19 08:09 Dose: 2,000 unit Folic Acid (Folic Acid) 1 mg PO DAILY@0800 [facility] Last Admin: 01/12/19 08:09 Dose: 1 mg Hydrochlorothiazide (Hctz) 25 mg PO DAILY [facility] Last Admin: 01/12/19 08:09 Dose: 25 mg Hydroxychloroquine Sulfate (Plaquenil) 200 mg PO BID [facility] Last Admin: 01/12/19 08:09 Dose: 200 mg Losartan Potassium (Cozaar) 100 mg PO DAILY [facility] Last Admin: 01/12/19 08:09 Dose: 100 mg Magnesium Hydroxide (Milk Of Magnesia) 30 ml PO .PRN X 1 PRN PRN Reason: Constipation Methotrexate (Methotrexate) 20 mg PO Mo@1000 [facility] Oxycodone HCl (Oxyir) 5 - 10 mg PO Q4H PRN PRN PRN Reason: MOD-SEVERE PAIN (4-1010) Last Admin: 01/12/19 09:59 Dose: 10 mg Pantoprazole Sodium (Protonix) 40 mg PO DAILY [facility] Last Admin: 01/12/19 08:09 Dose: 40 mg Polyethylene Glycol (Miralax) 17 gm PO DAILY [facility] Last Admin: 01/12/19 08:18 Dose: 17 gm Rivaroxaban (Xarelto) 20 mg PO DAILY@1700 [facility] Senna/Docusate Sodium (Senokot-S, Yuliet-Colace) 2 tablet PO BID [facility] Last Admin: 01/12/19 08:09 Dose: 2 tablet Medical Necessity - Tobacco Use Smoking Status: Never smoker Assessment/Plan All Active Problems (Last Reviewed 11/08/18 @ 14:38 by Felipe Harley MD) Debility (Acute) Small bowel obstruction (Resolved) The patient is a 70-year-old gentleman who was electively admitted after left total hip replacement after left hip fracture in November 2018 status post ORIF with pinning done by Dr. Zhu on 12/02/2018. After that, patient was not able to put weight and ambulate well therefore patient had elective left hip total replacement. Prior to that patient had right hip arthroplasty in 2010. 1. Elective left hip total replacement on 01/09/2019 for failed hip pinning for left subcapital femoral neck fracture: Pain management. PT and OT. Mild leukocytosis secondary to surgical stress/inflammation. Incentive spirometry. 2. Acute hypoxic respiratory failure secondary to moderate loculated left pleural effusion with underlying atelectasis: Lasix 40 mg oral daily for diuresis. Reported mild exertional shortness of breath: Advised pulmonary consult. continue incentive spirometry. Paroxysmal A. fib after small bowel obstruction laparotomy surgery: Heart rate is controlled. Patient is in normal sinus rhythm. On Xarelto and amiodarone. 3. Hypertension: Blood pressure is controlled. Continue home medication. On losartan/HCTZ 100-25 mg, carvedilol. 4. Anemia of chronic disease: Patient had slight drop in hemoglobin, 9.6/29.9 from baseline probably from hemodilution/mild surgical blood loss Other comorbidities include rheumatoid arthritis, BPH degenerative joint disease, constipation and morbid obesity: Home medication reconciliation done DVT prophylaxis: On Xarelto 20 mg daily. Code Visit Inpatient E&M: 40053 Init Hosp L2
--- NOTE | 2019-01-12 15:21 | PN_ITS ---
Subjective: Patient chest x-ray report reviewed. It is reported as loculated moderate pleural effusion. Patient had a small left pleural effusion which is increased in size. Vitals/I&O's: Vital Signs Temp Pulse Resp BP Pulse Ox 97.9 F 76 18 139/63 H 92 01/12/19 07:00 01/12/19 07:00 01/12/19 07:00 01/12/19 07:00 01/12/19 12:30 Oxygen Flow Rate (L/min) 2 Oxygen Delivery Method Nasal Cannula Weight: 291 lb 8.628 oz Body Mass Index (BMI) 37.4 Intake and Output for Last 24 Hours 01/10/19 01/11/19 01/12/19 23:59 23:59 23:59 Intake Total 430 / 430 1020 / 1020 Output Total 500 / 500 Balance 430 / 430 520 / 520 General: Alert, Oriented x3, Cooperative HEENT: Atraumatic, PERRLA, EOMI, Normocephalic Neck: Supple, No JVD, Negative Carotid Bruits Lungs: Clear to auscultation, No rhonchi, No wheeze, No rales, Diminished - Air entry is diminished in posterior left base Cardiovascular: Regular rate, Regular Rhythm, Normal S1, Normal S2, No murmurs Abdomen: Bowel Sounds Present, Soft, Non Tender, Non-Distended Extremities: No edema, Capillary Refill Less than 3 Seconds Skin: No rashes, No breakdown Musculoskeletal: No Tenderness to Palpation of Joints or Extremities, Arthritic Changes, Muscle Wasting Lymphatic: No Cervical, Supraclavicular, or Inguinal Adenopathy Neurological: Cranial nerves II-XII grossly intact, Deep Tendon Reflexes 2+/4 and Symmetrical, Neuro grossly intact Psych/Mental Status: Normal Affect, Appropriate Laboratory Results 01/12/19 06:30: WBC 9.5, RBC 2.77 L, Hgb 9.1 L, Hct 28.9 L, MCV 104.3 H, MCH 32.9 H, MCHC 31.5 L, RDW 14.3, RDW Differential 53.4 H, Plt Count 210, MPV 9.3, Immature Gran % (Auto) 0.300, Neut % (Auto) 69.4, Lymph % (Auto) 17.0 L, [place] % (Auto) 9.5, Eos % (Auto) 3.6, Baso % (Auto) 0.2, Absolute Neuts (auto) 6.6, Absolute Lymphs (auto) 1.61, Total Counted Not Reportable 01/12/19 06:30: Sodium 142, Potassium 4.1, Chloride 105, Carbon Dioxide 32.0, Anion Gap 5, BUN 24 H, Creatinine 1.12, Estim Creat Clear Calc 63.20, Est GFR (MDRD) Af Amer 81, Est GFR (MDRD) Non-Af 67, BUN/Creatinine Ratio 21.4 H, Glucose 91, Calcium 8.0 L, Total Bilirubin 0.40, AST 14 L, ALT 15 L, Alkaline Phosphatase 51, Total Protein 5.6 L, Albumin 2.4 L, Globulin 3.2, Albumin/Globulin Ratio 0.8 L Current Medications Acetaminophen (Tylenol) 650 mg PO Q8 [facility] Last Admin: 01/12/19 12:44 Dose: 650 mg Amiodarone HCl (Cordarone) 200 mg PO DAILY@0800 [facility] Last Admin: 01/12/19 08:09 Dose: 200 mg Bisacodyl (Dulcolax) 10 mg RECTAL .PRN X 1 PRN PRN Reason: Constipation Calcium Carbonate (Tums) 500 mg PO BIDCM [facility] Last Admin: 01/12/19 08:09 Dose: 500 mg Carvedilol (Coreg) 25 mg PO BID [facility] Last Admin: 01/12/19 08:09 Dose: 25 mg Cholecalciferol (Vitamin D) 2,000 unit PO DAILY@0800 [facility] Last Admin: 01/12/19 08:09 Dose: 2,000 unit Folic Acid (Folic Acid) 1 mg PO DAILY@0800 [facility] Last Admin: 01/12/19 08:09 Dose: 1 mg Hydrochlorothiazide (Hctz) 25 mg PO DAILY [facility] Last Admin: 01/12/19 08:09 Dose: 25 mg Hydroxychloroquine Sulfate (Plaquenil) 200 mg PO BID [facility] Last Admin: 01/12/19 08:09 Dose: 200 mg Losartan Potassium (Cozaar) 100 mg PO DAILY [facility] Last Admin: 01/12/19 08:09 Dose: 100 mg Magnesium Hydroxide (Milk Of Magnesia) 30 ml PO .PRN X 1 PRN PRN Reason: Constipation Methotrexate (Methotrexate) 20 mg PO Mo@1000 [facility] Oxycodone HCl (Oxyir) 5 - 10 mg PO Q4H PRN PRN PRN Reason: MOD-SEVERE PAIN (4-1010) Last Admin: 01/12/19 09:59 Dose: 10 mg Pantoprazole Sodium (Protonix) 40 mg PO DAILY [facility] Last Admin: 01/12/19 08:09 Dose: 40 mg Polyethylene Glycol (Miralax) 17 gm PO DAILY [facility] Last Admin: 01/12/19 08:18 Dose: 17 gm Rivaroxaban (Xarelto) 20 mg PO DAILY@1700 [facility] Senna/Docusate Sodium (Senokot-S, Yuliet-Colace) 2 tablet PO BID [facility] Last Admin: 01/12/19 08:09 Dose: 2 tablet Medical Necessity - Tobacco Use Smoking Status: Never smoker Assessment/Plan All Active Problems (Last Reviewed 11/08/18 @ 14:38 by Felipe Harley MD) Debility (Acute) Small bowel obstruction (Resolved) The patient is a 70-year-old gentleman who was electively admitted after left total hip replacement after left hip fracture in November 2018 status post ORIF with pinning done by Dr. Zhu on 12/02/2018. After that, patient was not able to put weight and ambulate well therefore patient had elective left hip total replacement. Prior to that patient had right hip arthroplasty in 2010. 1. Elective left hip total replacement on 01/09/2019 for failed hip pinning for left subcapital femoral neck fracture: Pain management. PT and OT. Mild leukocytosis secondary to surgical stress/inflammation. Incentive spirometry. 2. Acute hypoxic respiratory failure secondary to moderate loculated left pleural effusion with underlying atelectasis: Lasix 40 mg oral daily for diuresis. Reported mild exertional shortness of breath: Advised pulmonary consult. continue incentive spirometry. Paroxysmal A. fib after small bowel obstruction laparotomy surgery: Heart rate is controlled. Patient is in normal sinus rhythm. On Xarelto and amiodarone. 3. Hypertension: Blood pressure is controlled. Continue home medication. On losartan/HCTZ 100-25 mg, carvedilol. 4. Anemia of chronic disease: Patient had slight drop in hemoglobin, 9.6/29.9 from baseline probably from hemodilution/mild surgical blood loss Other comorbidities include rheumatoid arthritis, BPH degenerative joint disease, constipation and morbid obesity: Home medication reconciliation done DVT prophylaxis: On Xarelto 20 mg daily. Code Visit Inpatient E&M: 84176 Init Hosp L2
[2019-01-12] MEDS: Furosemide 40 MG Tablet PO (17:01)
[2019-01-12] MEDS: Rivaroxaban 20 MG Tablet PO (17:05)
[2019-01-12 19:51] VITALS: BP 133/69; PULSE 79; RESP 20; TEMP 36.6; O2SAT 93
[2019-01-13] MEDS: Acetaminophen 325 MG Tablet 650 MG PO ×3 (05:58→21:20)
--- NOTE | 2019-01-13 06:02 | NURSING ---
Pt stated that he didn't sleep very well because he was awakened several times to urinate. Pt had Lasix at 17:00 and used BSC a couple times and urinal several times. Pt requested sleeping in d/t interrupted sleep.
[2019-01-13 07:41] VITALS: BP 138/72; PULSE 68; RESP 18; TEMP 36.6; O2SAT 96
[2019-01-13] MEDS: Senna/Docusate Sodium 1 Tablet 2 TABLET PO ×2 (08:09→21:19)
[2019-01-13] MEDS: Hydroxychloroquine 200 MG Tablet PO ×2 (08:09→21:19)
[2019-01-13] MEDS: Pantoprazole Sodium 40 MG Tablet PO (08:09)
[2019-01-13] MEDS: Carvedilol 25 MG Tablet PO ×2 (08:10→21:19)
[2019-01-13] MEDS: Polyethylene Glycol 3350 17 GM PACKET PO (08:10)
[2019-01-13] MEDS: Calcium Carbonate 500 MG Tablet PO ×2 (08:10→18:13)
[2019-01-13] MEDS: Folic Acid 1 MG Tablet PO (08:10)
[2019-01-13] MEDS: Furosemide 40 MG Tablet PO (08:10)
[2019-01-13] MEDS: oxyCODONE 5 MG Tablet PO ×3 (08:10→18:18)
[2019-01-13] MEDS: Amiodarone 200 MG Tablet PO (08:10)
[2019-01-13] MEDS: Losartan Potassium 100 MG Tablet PO (08:10)
[2019-01-13 11:01] VITALS: O2SAT 93
--- NOTE | 2019-01-13 11:30 | NURSING ---
down to multipurpose room and worked on [employer]
[2019-01-13 12:02] VITALS: O2SAT 90
--- NOTE | 2019-01-13 12:30 | NURSING ---
90% ON RA PER CPS AND SOB WITH EXERTION. PLACED BACK ON 2L VIA NASAL CANNULA.
--- NOTE | 2019-01-13 17:19 | PCM.PN.HOSP ---
Subjective: Chest x-ray reviewed with the harness puller. Since patient has moderate left pleural effusion, exact etiology unclear. Radiologist reported as loculated moderate pleural effusion. Patient denies history of CHF, nephrotic syndrome or cirrhosis. Patient denies any recent pneumonia in October or November 2017. Patient used to get short of breath on exertion during rehab after abdominal surgery during but this time it is more than his normal shortness of breath on physical therapy/injection. Vitals/I&O's: Vital Signs Temp Pulse Resp BP Pulse Ox 97.9 F 68 18 138/72 H 90 01/13/19 07:41 01/13/19 07:41 01/13/19 07:41 01/13/19 07:41 01/13/19 12:02 Oxygen Flow Rate (L/min) 2 Oxygen Delivery Method Room Air Weight: 291 lb 8.628 oz Body Mass Index (BMI) 37.4 Intake and Output for Last 24 Hours 01/11/19 01/12/19 01/13/19 23:59 23:59 23:59 Intake Total 430 / 430 1320 / 1320 480 / 480 Output Total 700 / 700 400 / 400 Balance 430 / 430 620 / 620 80 / 80 General: Alert, Oriented x3, Cooperative HEENT: Atraumatic, PERRLA, EOMI, Normocephalic Neck: Supple, No JVD, Negative Carotid Bruits Lungs: No rhonchi, No wheeze, No rales, Diminished - Air entry diminished in posterior half of left lung, - - There is dullness on posterior left lung below sixth intercostal space but difficult to interpret because he also has morbid obesity and thick subcutaneous fat Cardiovascular: Regular rate, Regular Rhythm, Normal S1, Normal S2, No murmurs Abdomen: Bowel Sounds Present, Soft, Non Tender, Non-Distended Extremities: No edema, Capillary Refill Less than 3 Seconds Skin: No rashes, No breakdown Musculoskeletal: No Tenderness to Palpation of Joints or Extremities Neurological: Cranial nerves II-XII grossly intact Psych/Mental Status: Normal Affect, Appropriate Current Medications Acetaminophen (Tylenol) 650 mg PO Q8 [facility] Last Admin: 01/13/19 13:33 Dose: 650 mg Amiodarone HCl (Cordarone) 200 mg PO DAILY@0800 [facility] Last Admin: 01/13/19 08:10 Dose: 200 mg Bisacodyl (Dulcolax) 10 mg RECTAL .PRN X 1 PRN PRN Reason: Constipation [facility] Admin: 01/13/19 08:10 Dose: 500 mg Carvedilol (Coreg) 25 mg PO BID [facility] Last Admin: 01/13/19 08:10 Dose: 25 mg Cholecalciferol (Vitamin D) 2,000 unit PO DAILY@0800 [facility] Last Admin: 01/13/19 08:10 Dose: 2,000 unit Folic Acid (Folic Acid) 1 mg PO DAILY@0800 [facility] Last Admin: 01/13/19 08:10 Dose: 1 mg Furosemide (Lasix) 40 mg PO DAILY [facility] Last Admin: 01/13/19 08:10 Dose: 40 mg Hydroxychloroquine Sulfate (Plaquenil) 200 mg PO BID [facility] Last Admin: 01/13/19 08:09 Dose: 200 mg Losartan Potassium (Cozaar) 100 mg PO DAILY [facility] Last Admin: 01/13/19 08:10 Dose: 100 mg Magnesium Hydroxide (Milk Of Magnesia) 30 ml PO .PRN X 1 PRN PRN Reason: Constipation Methotrexate (Methotrexate) 20 mg PO Mo@1000 [facility] Oxycodone HCl (Oxyir) 5 - 10 mg PO Q4H PRN PRN PRN Reason: MOD-SEVERE PAIN (4-1010) Last Admin: 01/13/19 13:36 Dose: 10 mg Pantoprazole Sodium (Protonix) 40 mg PO DAILY [facility] Last Admin: 01/13/19 08:09 Dose: 40 mg Polyethylene Glycol (Miralax) 17 gm PO DAILY [facility] Last Admin: 01/13/19 08:10 Dose: 17 gm Rivaroxaban (Xarelto) 20 mg PO DAILY@1700 [facility] Last Admin: 01/12/19 17:05 Dose: 20 mg Senna/Docusate Sodium (Senokot-S, Yuliet-Colace) 2 tablet PO BID [facility] Last Admin: 01/13/19 08:09 Dose: 2 tablet Medical Necessity - Tobacco Use Smoking Status: Never smoker Assessment/Plan All Active Problems (Last Reviewed 11/08/18 @ 14:38 by Felipe Harley MD) Debility (Acute) Small bowel obstruction (Resolved) The patient is a 70-year-old gentleman who was electively admitted after left total hip replacement after left hip fracture in November 2018 status post ORIF with pinning done by Dr. Zhu on 12/02/2018. After that, patient was not able to put weight and ambulate well therefore patient had elective left hip total replacement. Prior to that patient had right hip arthroplasty in 2010. 1. Elective left hip total replacement on 01/09/2019 for failed hip pinning for left subcapital femoral neck fracture: Pain management. PT and OT. Mild leukocytosis secondary to surgical stress/inflammation. Incentive spirometry. 2. Acute hypoxic respiratory failure secondary to moderate loculated left pleural effusion; exact etiology unclear with underlying atelectasis: Lasix 40 mg oral daily for diuresis. Reported mild exertional shortness of breath: Advised pulmonary consult. continue incentive spirometry. Discussed with the harness puller Dr. Delgado. He suggested ultrasound tomorrow morning to assess the size and loculation of pleural effusion. Further indication of thoracocentesis based on ultrasound report. Will get pulmonary consult after ultrasound is done. Patient had echo in November 12, 2018 and reported as EF 55% with grossly normal left ventricular size, motion and systolic function. Normal left and right atrium. Unable to assess diastolic dysfunction. Paroxysmal A. fib after small bowel obstruction laparotomy surgery: Heart rate is controlled. Patient is in normal sinus rhythm. On Xarelto and amiodarone. 3. Hypertension: Blood pressure is controlled. Continue home medication. On losartan/HCTZ 100-25 mg, carvedilol. 4. Anemia of chronic disease: Patient had slight drop in hemoglobin, 9.6/29.9 from baseline probably from hemodilution/mild surgical blood loss Other comorbidities include rheumatoid arthritis, BPH degenerative joint disease, constipation and morbid obesity: Home medication reconciliation done DVT prophylaxis: On Xarelto 20 mg daily. If patient needs thoracocentesis, Xarelto needs to be held for about 2-3 days. Discussed with the patient and patient's regarding pleural effusion, ultrasound assessment and further management regarding thoracocentesis based on ultrasound report. They affirmed understanding. Code Visit Inpatient E&M: 83056 Subs Hosp L2
--- NOTE | 2019-01-13 17:24 | PN_ITS ---
Subjective: Chest x-ray reviewed with the volunteer coordinator. Since patient has moderate left pleural effusion, exact etiology unclear. Radiologist reported as loculated moderate pleural effusion. Patient denies history of CHF, nephrotic syndrome or cirrhosis. Patient denies any recent pneumonia in October or November 2017. Patient used to get short of breath on exertion during rehab after abdominal surgery during but this time it is more than his normal shortness of breath on physical therapy/injection. Vitals/I&O's: Vital Signs Temp Pulse Resp BP Pulse Ox 97.9 F 68 18 138/72 H 90 01/13/19 07:41 01/13/19 07:41 01/13/19 07:41 01/13/19 07:41 01/13/19 12:02 Oxygen Flow Rate (L/min) 2 Oxygen Delivery Method Room Air Weight: 291 lb 8.628 oz Body Mass Index (BMI) 37.4 Intake and Output for Last 24 Hours 01/11/19 01/12/19 01/13/19 23:59 23:59 23:59 Intake Total 430 / 430 1320 / 1320 480 / 480 Output Total 700 / 700 400 / 400 Balance 430 / 430 620 / 620 80 / 80 General: Alert, Oriented x3, Cooperative HEENT: Atraumatic, PERRLA, EOMI, Normocephalic Neck: Supple, No JVD, Negative Carotid Bruits Lungs: No rhonchi, No wheeze, No rales, Diminished - Air entry diminished in posterior half of left lung, - - There is dullness on posterior left lung below sixth intercostal space but difficult to interpret because he also has morbid obesity and thick subcutaneous fat Cardiovascular: Regular rate, Regular Rhythm, Normal S1, Normal S2, No murmurs Abdomen: Bowel Sounds Present, Soft, Non Tender, Non-Distended Extremities: No edema, Capillary Refill Less than 3 Seconds Skin: No rashes, No breakdown Musculoskeletal: No Tenderness to Palpation of Joints or Extremities Neurological: Cranial nerves II-XII grossly intact Psych/Mental Status: Normal Affect, Appropriate Current Medications Acetaminophen (Tylenol) 650 mg PO Q8 [facility] Last Admin: 01/13/19 13:33 Dose: 650 mg Amiodarone HCl (Cordarone) 200 mg PO DAILY@0800 [facility] Last Admin: 01/13/19 08:10 Dose: 200 mg Bisacodyl (Dulcolax) 10 mg RECTAL .PRN X 1 PRN PRN Reason: Constipation [facility] Last Admin: 01/13/19 08:10 Dose: 500 mg Carvedilol (Coreg) 25 mg PO BID [facility] Last Admin: 01/13/19 08:10 Dose: 25 mg Cholecalciferol (Vitamin D) 2,000 unit PO DAILY@0800 [facility] Last Admin: 01/13/19 08:10 Dose: 2,000 unit Folic Acid (Folic Acid) 1 mg PO DAILY@0800 [facility] Last Admin: 01/13/19 08:10 Dose: 1 mg Furosemide (Lasix) 40 mg PO DAILY [facility] Last Admin: 01/13/19 08:10 Dose: 40 mg Hydroxychloroquine Sulfate (Plaquenil) 200 mg PO BID [facility] Last Admin: 01/13/19 08:09 Dose: 200 mg Losartan Potassium (Cozaar) 100 mg PO DAILY [facility] Last Admin: 01/13/19 08:10 Dose: 100 mg Magnesium Hydroxide (Milk Of Magnesia) 30 ml PO .PRN X 1 PRN PRN Reason: Constipation Methotrexate (Methotrexate) 20 mg PO Mo@1000 [facility] Oxycodone HCl (Oxyir) 5 - 10 mg PO Q4H PRN PRN PRN Reason: MOD-SEVERE PAIN (4-1010) Last Admin: 01/13/19 13:36 Dose: 10 mg Pantoprazole Sodium (Protonix) 40 mg PO DAILY [facility] Last Admin: 01/13/19 08:09 Dose: 40 mg Polyethylene Glycol (Miralax) 17 gm PO DAILY [facility] Last Admin: 01/13/19 08:10 Dose: 17 gm Rivaroxaban (Xarelto) 20 mg PO DAILY@1700 [facility] Last Admin: 01/12/19 17:05 Dose: 20 mg Senna/Docusate Sodium (Senokot-S, Yuliet-Colace) 2 tablet PO BID [facility] Last Admin: 01/13/19 08:09 Dose: 2 tablet Medical Necessity - Tobacco Use Smoking Status: Never smoker Assessment/Plan All Active Problems (Last Reviewed 11/08/18 @ 14:38 by Felipe Harley MD) Debility (Acute) Small bowel obstruction (Resolved) The patient is a 70-year-old gentleman who was electively admitted after left total hip replacement after left hip fracture in November 2018 status post ORIF with pinning done by Dr. Zhu on 12/02/2018. After that, patient was not able to put weight and ambulate well therefore patient had elective left hip total replacement. Prior to that patient had right hip arthroplasty in 2010. 1. Elective left hip total replacement on 01/09/2019 for failed hip pinning for left subcapital femoral neck fracture: Pain management. PT and OT. Mild leukocytosis secondary to surgical stress/inflammation. Incentive spirometry. 2. Acute hypoxic respiratory failure secondary to moderate loculated left pleural effusion; exact etiology unclear with underlying atelectasis: Lasix 40 mg oral daily for diuresis. Reported mild exertional shortness of breath: Advised pulmonary consult. continue incentive spirometry. Discussed with the volunteer coordinator Dr. Delgado. He suggested ultrasound tomorrow morning to assess the size and loculation of pleural effusion. Further indication of thoracocentesis based on ultrasound report. Will get pulmonary consult after ultrasound is done. Patient had echo in November 12, 2018 and reported as EF 55% with grossly normal left ventricular size, motion and systolic function. Normal left and right atrium. Unable to assess diastolic dysfunction. Paroxysmal A. fib after small bowel obstruction laparotomy surgery: Heart rate is controlled. Patient is in normal sinus rhythm. On Xarelto and amiodarone. 3. Hypertension: Blood pressure is controlled. Continue home medication. On losartan/HCTZ 100-25 mg, carvedilol. 4. Anemia of chronic disease: Patient had slight drop in hemoglobin, 9.6/29.9 from baseline probably from hemodilution/mild surgical blood loss Other comorbidities include rheumatoid arthritis, BPH degenerative joint disease, constipation and morbid obesity: Home medication reconciliation done DVT prophylaxis: On Xarelto 20 mg daily. If patient needs thoracocentesis, Xarelto needs to be held for about 2-3 days. Discussed with the patient and patient's regarding pleural effusion, ultrasound assessment and further management regarding thoracocentesis based on ultrasound report. They affirmed understanding. Code Visit Inpatient E&M: 34370 Subs Hosp L2
[2019-01-13] MEDS: Rivaroxaban 20 MG Tablet PO (18:13)
[2019-01-13 21:15] VITALS: BP 112/56; PULSE 68; RESP 18; TEMP 36.4; O2SAT 95
--- NOTE | 2019-01-14 05:55 | US_ITS ---
STUDY: SUPERFICIAL ULTRASOUND - LEFT CHEST REASON FOR EXAM: Male, 78 years old. Pleural effusion. Abnormal chest x-ray. TECHNIQUE: A superficial ultrasound was performed with real-time and static silver-scale imaging. COMPARISON: None. FINDINGS: Real-time sonography of the left chest demonstrates a small to moderate-sized pleural effusion with occasional septations. US/Chest IMPRESSION: Small moderate size left pleural effusion with occasional internal septations. It is unclear if these are complete septations creating a multiloculated collection. Electronically Signed: Martín Brannon MD at 15:55 EST , Service support ,
[2019-01-14] MEDS: Acetaminophen 325 MG Tablet 650 MG PO ×3 (06:27→20:59)
[2019-01-14] MEDS: oxyCODONE 5 MG Tablet PO ×4 (06:30→23:02)
[2019-01-14] MEDS: Amiodarone 200 MG Tablet PO (08:02)
[2019-01-14] MEDS: Calcium Carbonate 500 MG Tablet PO ×2 (08:02→17:12)
[2019-01-14] MEDS: Folic Acid 1 MG Tablet PO (08:02)
[2019-01-14 08:33] VITALS: O2SAT 94
[2019-01-14 09:35] VITALS: BP 109/57; PULSE 82; RESP 16; TEMP 36.8; O2SAT 91
[2019-01-14] MEDS: Polyethylene Glycol 3350 17 GM PACKET PO (09:52)
[2019-01-14] MEDS: Pantoprazole Sodium 40 MG Tablet PO (09:53)
[2019-01-14] MEDS: Hydroxychloroquine 200 MG Tablet PO ×2 (09:53→21:00)
[2019-01-14] MEDS: Senna/Docusate Sodium 1 Tablet 2 TABLET PO ×2 (09:53→21:00)
[2019-01-14] MEDS: Methotrexate 2.5 MG Tablet 20 MG PO (09:53)
[2019-01-14] MEDS: Furosemide 40 MG Tablet PO (09:53)
[2019-01-14] MEDS: Carvedilol 25 MG Tablet PO ×2 (09:53→20:59)
[2019-01-14] MEDS: Losartan Potassium 100 MG Tablet PO (09:53)
[2019-01-14] MEDS: Rivaroxaban 20 MG Tablet PO (17:12)
[2019-01-14 19:36] VITALS: BP 137/66; PULSE 76; RESP 16; TEMP 36.6; O2SAT 94
[2019-01-15] MEDS: Acetaminophen 325 MG Tablet 650 MG PO ×3 (05:47→20:37)
[2019-01-15 08:58] VITALS: BP 116/61; PULSE 78; RESP 16; TEMP 36.4; O2SAT 96
[2019-01-15] MEDS: oxyCODONE 5 MG Tablet PO ×2 (09:00→13:09)
[2019-01-15] MEDS: Calcium Carbonate 500 MG Tablet PO ×2 (09:01→16:59)
[2019-01-15] MEDS: Hydroxychloroquine 200 MG Tablet PO ×2 (09:01→20:38)
[2019-01-15] MEDS: Amiodarone 200 MG Tablet PO (09:01)
[2019-01-15] MEDS: Pantoprazole Sodium 40 MG Tablet PO (09:01)
[2019-01-15] MEDS: Senna/Docusate Sodium 1 Tablet 2 TABLET PO ×2 (09:01→20:37)
[2019-01-15] MEDS: Losartan Potassium 100 MG Tablet PO (09:01)
[2019-01-15] MEDS: Furosemide 40 MG Tablet PO (09:01)
[2019-01-15] MEDS: Folic Acid 1 MG Tablet PO (09:01)
[2019-01-15] MEDS: Polyethylene Glycol 3350 17 GM PACKET PO (09:01)
[2019-01-15] MEDS: Carvedilol 25 MG Tablet PO ×2 (09:02→20:38)
--- NOTE | 2019-01-15 13:03 | PN.NEURO_ITS ---
Subjective: No new complaints. Tolerating therapies. No GI or complaints. Is somewhat concerned with shortness of breath however this appears to be stable. - Physical Exam General: Alert, Oriented x3, Cooperative, No apparent distress Neurological: Cranial nerves II-XII grossly intact Psych/Mental Status: Alert and oriented to time, place, person, mood and affect Vital Signs Temp Pulse Resp BP Pulse Ox 36.4 C L 78 16 116/61 96 01/15/19 08:58 01/15/19 08:58 01/15/19 08:58 01/15/19 08:58 01/15/19 08:58 Oxygen Flow Rate (L/min) 2 Oxygen Delivery Method Room Air Weight: 132.24 kg Body Mass Index (BMI) 37.4 Intake and Output for Last 24 Hours 01/13/19 01/14/19 01/15/19 23:59 23:59 23:59 Intake Total 720 / 720 690 / 690 Output Total 1000 / 1000 1250 / 1250 Balance -280 / -280 -560 / -560 Current Medications Generic Name Dose Route Start Last Admin Trade Name Freq PRN Reason Stop Dose Admin Acetaminophen 650 mg 01/11/19 22:00 01/15/19 05:47 Tylenol PO 650 mg Q8 [facility] Administration Amiodarone HCl 200 mg 01/12/19 08:00 01/15/19 09:01 Cordarone PO 200 mg DAILY@0800 [facility] Administration Bisacodyl 10 mg 01/11/19 18:09 Dulcolax RECTAL .PRN X 1 PRN Constipation Calcium Carbonate 500 mg 01/11/19 22:00 01/15/19 09:01 Tums PO 500 mg BIDCM [facility] Administration Carvedilol 25 mg 01/11/19 22:00 01/15/19 09:02 Coreg PO 25 mg BID [facility] Administration Cholecalciferol 2,000 unit 01/12/19 08:00 01/15/19 09:01 Vitamin D PO 2,000 unit DAILY@0800 [facility] Administration Folic Acid 1 mg 01/12/19 08:00 01/15/19 09:01 Folic Acid PO 1 mg DAILY@0800 [facility] Administration Furosemide 40 mg 01/13/19 10:00 01/15/19 09:01 Lasix PO 40 mg DAILY [facility] Administration Hydroxychloroquine Sulfate 200 mg 01/11/19 22:00 01/15/19 09:01 Plaquenil PO 200 mg BID [facility] Administration Losartan Potassium 100 mg 01/12/19 10:00 01/15/19 09:01 Cozaar PO 100 mg DAILY [facility] Administration Magnesium Hydroxide 30 ml 01/11/19 18:09 Milk Of Magnesia PO .PRN X 1 PRN Constipation Methotrexate 20 mg 01/14/19 10:00 01/14/19 09:53 Methotrexate PO 20 mg Mo@1000 [facility] Administration Oxycodone HCl 5 - 10 mg 01/11/19 18:02 01/15/19 09:00 Oxyir PO 10 mg Q4H PRN PRN Administration MOD-SEVERE PAIN (4-10) Pantoprazole Sodium 40 mg 01/12/19 10:00 01/15/19 09:01 Protonix PO 40 mg DAILY [facility] Administration Polyethylene Glycol 17 gm 01/12/19 10:00 01/15/19 09:01 Miralax PO 17 gm DAILY [facility] Administration Rivaroxaban 20 mg 01/12/19 17:00 01/14/19 17:12 Xarelto PO 20 mg DAILY@1700 [facility] Administration Senna/Docusate Sodium 2 tablet 01/11/19 22:00 01/15/19 09:01 Senokot-S, Yuliet-Colace PO 2 tablet BID [facility] Administration Medical Necessity - Tobacco Use Smoking Status: Never smoker Assessment/Plan All Active Problems (Last Reviewed 11/08/18 @ 14:38 by Felipe Harley MD) Debility (Acute) Small bowel obstruction (Resolved) Heath status post left femur fracture, ORIF. Is hinduism of prior level of functional dependence. Plan: Physical therapy for gait and balance Occupational Therapy for ADLs Bowel protocol PRN analgesics DVT prophylaxis: Lovenox
[2019-01-15 13:45] VITALS: O2SAT 96
[2019-01-15] MEDS: Rivaroxaban 20 MG Tablet PO (16:59)
[2019-01-15 20:18] VITALS: BP 126/62; PULSE 77; RESP 12; TEMP 37; O2SAT 95
[2019-01-16] MEDS: Acetaminophen 325 MG Tablet 650 MG PO ×3 (06:28→21:51)
[2019-01-16 07:12] VITALS: BP 126/63; PULSE 72; RESP 12; TEMP 36.6; O2SAT 97
[2019-01-16] MEDS: Senna/Docusate Sodium 1 Tablet 2 TABLET PO ×2 (08:20→21:55)
[2019-01-16] MEDS: Pantoprazole Sodium 40 MG Tablet PO (08:20)
[2019-01-16] MEDS: Polyethylene Glycol 3350 17 GM PACKET PO (08:20)
[2019-01-16] MEDS: Hydroxychloroquine 200 MG Tablet PO ×2 (08:20→21:55)
[2019-01-16] MEDS: Amiodarone 200 MG Tablet PO (08:21)
[2019-01-16] MEDS: Furosemide 40 MG Tablet PO (08:21)
[2019-01-16] MEDS: Calcium Carbonate 500 MG Tablet PO ×2 (08:21→16:47)
[2019-01-16] MEDS: Losartan Potassium 100 MG Tablet PO (08:21)
[2019-01-16] MEDS: Carvedilol 25 MG Tablet PO ×2 (08:21→21:55)
[2019-01-16] MEDS: Folic Acid 1 MG Tablet PO (08:21)
[2019-01-16] MEDS: oxyCODONE 5 MG Tablet PO ×2 (08:22→13:21)
--- NOTE | 2019-01-16 13:25 | PCM.PN.NEU ---
Subjective: No new complaints. He remains concerned about his shortness of breath with exertion however he says this does not seem to be getting any worse. He has no conversational dyspnea. No other complaints. Tolerating therapies. - Physical Exam General: Alert, Oriented x3, Cooperative, No apparent distress HEENT: Atraumatic, PERRLA, EOMI Neurological: Cranial nerves II-XII grossly intact Psych/Mental Status: Normal Affect, Alert and oriented to time, place, person, mood and affect Vital Signs Temp Pulse Resp BP Pulse Ox 36.6 C 72 12 126/63 H 97 01/16/19 07:12 01/16/19 07:12 01/16/19 07:12 01/16/19 07:12 01/16/19 07:12 Oxygen Flow Rate (L/min) 2 Oxygen Delivery Method Nasal Cannula Weight: 132.6 kg Body Mass Index (BMI) 37.4 Intake and Output for Last 24 Hours 01/14/19 01/15/19 01/16/19 23:59 23:59 23:59 Intake Total 690 / 690 480 / 480 Output Total 1250 / 1250 Balance -560 / -560 480 / 480 Medical Necessity - Tobacco Use Smoking Status: Never smoker Assessment/Plan All Active Problems (Last Reviewed 11/08/18 @ 14:38 by Felipe Harley MD) Debility (Acute) Small bowel obstruction (Resolved) Debility, status post left femur fracture, ORIF. Goal of therapy is buddhism of prior level of functional dependence. Plan: Physical therapy for gait and balance Occupational Therapy for ADLs Bowel protocol PRN analgesics DVT prophylaxis: Lovenox Shortness of breath: Stable. Hospitalist aware. Apparently pleural effusion is small and not amenable to thoracentesis. His shortness of breath appears stable and nonprogressive. Will monitor.
[2019-01-16] MEDS: Rivaroxaban 20 MG Tablet PO (16:47)
[2019-01-16 22:00] VITALS: BP 130/67; PULSE 76; PULSE 78; RESP 16; TEMP 36.6; O2SAT 96
[2019-01-17] MEDS: Acetaminophen 325 MG Tablet 650 MG PO ×3 (06:03→20:26)
[2019-01-17] MEDS: oxyCODONE 5 MG Tablet PO ×3 (06:05→14:43)
[2019-01-17 07:49] VITALS: BP 152/66; PULSE 69; RESP 18; TEMP 36.6; O2SAT 93
[2019-01-17] MEDS: Furosemide 40 MG Tablet PO (08:56)
[2019-01-17] MEDS: Senna/Docusate Sodium 1 Tablet 2 TABLET PO ×2 (08:56→20:27)
[2019-01-17] MEDS: Losartan Potassium 100 MG Tablet PO (08:56)
[2019-01-17] MEDS: Pantoprazole Sodium 40 MG Tablet PO (08:56)
[2019-01-17] MEDS: Calcium Carbonate 500 MG Tablet PO ×2 (08:56→17:05)
[2019-01-17] MEDS: Carvedilol 25 MG Tablet PO ×2 (08:56→20:27)
[2019-01-17] MEDS: Hydroxychloroquine 200 MG Tablet PO ×2 (08:56→20:26)
[2019-01-17] MEDS: Folic Acid 1 MG Tablet PO (08:57)
[2019-01-17] MEDS: Amiodarone 200 MG Tablet PO (08:57)
[2019-01-17] MEDS: Polyethylene Glycol 3350 17 GM PACKET PO (08:57)
--- NOTE | 2019-01-17 09:55 | PCM.PN.NEU ---
Subjective: Staffed in team meeting. Questions answered. and granddaughter are both present. He is doing well from a physical therapy therapy standpoint able to ambulate approximately 100 feet and able to negotiate steps however the limiting factor is his shortness of breath which appears stable per the patient as well as the staff. Occupational Therapy measures are somewhat limited by his swelling in his feet. Stable from a nursing standpoint. Plan to discharge 01/25. - Physical Exam General: Alert, Oriented x3, Cooperative, No apparent distress Neurological: Cranial nerves II-XII grossly intact Psych/Mental Status: Normal Affect, Alert and oriented to time, place, person, mood and affect Vital Signs Temp Pulse Resp BP Pulse Ox 36.6 C 69 18 152/66 H 93 01/17/19 07:49 01/17/19 07:49 01/17/19 07:49 01/17/19 07:49 01/17/19 07:49 Oxygen Flow Rate (L/min) 2 Oxygen Delivery Method Nasal Cannula Weight: 132.6 kg Body Mass Index (BMI) 37.4 Intake and Output for Last 24 Hours 01/15/19 01/16/19 01/17/19 23:59 23:59 23:59 Intake Total 480 / 480 440 / 440 Output Total 250 / 250 Balance 480 / 480 190 / 190 Current Medications Acetaminophen 650 mg 01/11/19 22:00 01/17/19 06:03 Tylenol PO 650 mg Q8 JAVAN Administration Amiodarone HCl 200 mg 01/12/19 08:00 01/17/19 08:57 Cordarone PO 200 mg DAILY@0800 [facility] Administration Bisacodyl 10 mg 01/11/19 18:09 Dulcolax RECTAL .PRN X 1 PRN Constipation Calcium Carbonate 500 mg 01/11/19 22:00 01/17/19 08:56 Tums PO 500 mg BIDCM JAVAN Administration Carvedilol 25 mg 01/11/19 22:00 01/17/19 08:56 Coreg PO 25 mg BID JAVAN Administration Cholecalciferol 2,000 unit 01/12/19 08:00 01/17/19 08:56 Vitamin D PO 2,000 unit DAILY@0800 [facility] Administration Folic Acid 1 mg 01/12/19 08:00 01/17/19 08:57 Folic Acid PO 1 mg DAILY@0800 [facility] Administration Furosemide 40 mg 01/13/19 10:00 01/17/19 08:56 Lasix PO 40 mg DAILY [facility] Administration Hydroxychloroquine Sulfate 200 mg 01/11/19 22:00 01/17/19 08:56 Plaquenil PO 200 mg BID JAVAN Administration Ipratropium [place] 0.5 mg 01/17/19 10:00 Atrovent INHALATION Lorazepam 0.5 mg 01/17/19 09:53 Ativan PO Losartan Potassium 100 mg 01/12/19 10:00 01/17/19 08:56 Cozaar PO 100 mg DAILY JAVAN Administration Magnesium Hydroxide 30 ml 01/11/19 18:09 Milk Of Magnesia PO .PRN X 1 PRN Constipation Methotrexate 20 mg 01/14/19 10:00 01/14/19 09:53 Methotrexate PO 20 mg Mo@1000 [facility] Administration Oxycodone HCl 5 - 10 mg 01/11/19 18:02 01/17/19 06:05 Oxyir PO 10 mg Q4H PRN PRN Administration MOD-SEVERE PAIN (4-10/10) Pantoprazole Sodium 40 mg 01/12/19 10:00 01/17/19 08:56 Protonix PO 40 mg DAILY JAVAN Administration Polyethylene Glycol 17 gm 01/12/19 10:00 01/17/19 08:57 Miralax PO 17 gm DAILY J[facility]AN Administration Rivaroxaban 20 mg 01/12/19 17:00 01/16/19 16:47 Xarelto PO 20 mg DAILY@1700 [facility] Administration Senna/Docusate Sodium 2 tablet 01/11/19 22:00 01/17/19 08:56 Senokot-S, Yul[place]-Colace PO 2 tablet BID JAVAN Administration Medical Necessity - Tobacco Use Smoking Status: Never smoker Assessment/Plan All Active Problems (Last Reviewed 11/08/18 @ 14:38 by Felipe Harley MD) Debility (Acute) Small bowel obstruction (Resolved) Debility, status post left femur fracture, ORIF. Goal of therapy is hinduism of prior level of functional dependence. Plan: Physical therapy for gait and balance Occupational Therapy for ADLs Bowel protocol PRN analgesics DVT prophylaxis: Lovenox Shortness of breath: Stable. Hospitalist aware. Apparently pleural effusion is small and not amenable to thoracentesis. His shortness of breath appears stable and nonprogressive. Will monitor. 01/17: We will ask hospitalist for any other recommendations and will add aerosols every 4 hours while awake as well as as needed. Insomnia: PRN Ativan for sleep
--- NOTE | 2019-01-17 09:59 | PN.NEURO_ITS ---
Subjective: Staffed in team meeting. Questions answered. and granddaughter are both present. He is doing well from a physical therapy therapy standpoint able to ambulate approximately 100 feet and able to negotiate steps however the limiting factor is his shortness of breath which appears stable per the patient as well as the staff. Occupational Therapy measures are somewhat limited by his swelling in his feet. Stable from a nursing standpoint. Plan to discharge 01/25. - Physical Exam General: Alert, Oriented x3, Cooperative, No apparent distress Neurological: Cranial nerves II-XII grossly intact Psych/Mental Status: Normal Affect, Alert and oriented to time, place, person, mood and affect Vital Signs Temp Pulse Resp BP Pulse Ox 36.6 C 69 18 152/66 H 93 01/17/19 07:49 01/17/19 07:49 01/17/19 07:49 01/17/19 07:49 01/17/19 07:49 Oxygen Flow Rate (L/min) 2 Oxygen Delivery Method Nasal Cannula Weight: 132.6 kg Body Mass Index (BMI) 37.4 Intake and Output for Last 24 Hours 01/15/19 01/16/19 01/17/19 23:59 23:59 23:59 Intake Total 480 / 480 440 / 440 Output Total 250 / 250 Balance 480 / 480 190 / 190 Current Medications Acetaminophen 650 mg 01/11/19 22:00 01/17/19 06:03 Tylenol PO 650 mg Q8 JAVAN Administration Amiodarone HCl 200 mg 01/12/19 08:00 01/17/19 08:57 Cordarone PO 200 mg DAILY@0800 [facility] Administration Bisacodyl 10 mg 01/11/19 18:09 Dulcolax RECTAL .PRN X 1 PRN Constipation Calcium Carbonate 500 mg 01/11/19 22:00 01/17/19 08:56 Tums PO 500 mg BIDCM J[facility] Administration Carvedilol 25 mg 01/11/19 22:00 01/17/19 08:56 Coreg PO 25 mg BID JAV[facility] Administration Cholecalciferol 2,000 unit 01/12/19 08:00 01/17/19 08:56 Vitamin D PO 2,000 unit DAILY@0800 [facility] Administration Folic Acid 1 mg 01/12/19 08:00 01/17/19 08:57 Folic Acid PO 1 mg DAILY@0800 [facility] Administration Furosemide 40 mg 01/13/19 10:00 01/17/19 08:56 Lasix PO 40 mg DAILY J[facility] Administration Hydroxychloroquine Sulfate 200 mg 01/11/19 22:00 01/17/19 08:56 Plaquenil PO 200 mg BID J[facility] Administration Ipratropium [place] 0.5 mg 01/17/19 10:00 Atrovent INHALATION Lorazepam 0.5 mg 01/17/19 09:53 Ativan PO Losartan Potassium 100 mg 01/12/19 10:00 01/17/19 08:56 Cozaar PO 100 mg DAILY [facility] Administration Magnesium Hydroxide 30 ml 01/11/19 18:09 Milk Of Magnesia PO .PRN X 1 PRN Constipation Methotrexate 20 mg 01/14/19 10:00 01/14/19 09:53 Methotrexate PO 20 mg Mo@1000 [facility] Administration Oxycodone HCl 5 - 10 mg 01/11/19 18:02 01/17/19 06:05 Oxyir PO 10 mg Q4H PRN PRN Administration MOD-SEVERE PAIN (4-10/10) Pantoprazole Sodium 40 mg 01/12/19 10:00 01/17/19 08:56 Protonix PO 40 mg DAILY JAVAN Administration Polyethylene Glycol 17 gm 01/12/19 10:00 01/17/19 08:57 Miralax PO 17 gm DAILY JAVAN Administration Rivaroxaban 20 mg 01/12/19 17:00 01/16/19 16:47 Xarelto PO 20 mg DAILY@1700 [facility] Administration Senna/Docusate Sodium 2 tablet 01/11/19 22:00 01/17/19 08:56 Senokot-S, Yuliet-Colace PO 2 tablet BID [facility] Administration Medical Necessity - Tobacco Use Smoking Status: Never smoker Assessment/Plan All Active Problems (Last Reviewed 11/08/18 @ 14:38 by Felipe Harley MD) Debility (Acute) Small bowel obstruction (Resolved) Debility, status post left femur fracture, ORIF. Goal of therapy is mu-ism of prior level of functional dependence. Plan: Physical therapy for gait and balance Occupational Therapy for ADLs Bowel protocol PRN analgesics DVT prophylaxis: Lovenox Shortness of breath: Stable. Hospitalist aware. Apparently pleural effusion is small and not amenable to thoracentesis. His shortness of breath appears stable and nonprogressive. Will monitor. 01/17: We will ask hospitalist for any other recommendations and will add aerosols every 4 hours while awake as well as as needed. Insomnia: PRN Ativan for sleep
--- NOTE | 2019-01-17 11:30 | CASEMGMT ---
Team meeting held. Patient present as well as patient family. Patient approved 14 Medicare Days with a discharge on or by 01/25/19. Team recommending for patient to continue with stay until 01/25/19 with plan for patient to discharge on 01/25/19 to home with spouse. Therapy is recommending for patient to have continued services through home health care for physical and occupational therapy when it is time to discharge. Patient to be re-teamed next . Patient reporting to have a walker already set up within the home. Support provided. Will continue to follow. Danielle AUSTIN, SABRINA
[2019-01-17 15:36] VITALS: PULSE 74; RESP 18; O2SAT 94
[2019-01-17] MEDS: Ipratropium 0.5 MG/2.5 ML SOLUTION INHALATION ×2 (15:36→20:27)
[2019-01-17 16:15] VITALS: O2SAT 94
[2019-01-17] MEDS: Furosemide 40 MG/4 ML Vial IV (16:55)
[2019-01-17] MEDS: 0.9% NaCl Peripheral Flush Adult/Peds IV ×2 (16:55→20:27)
[2019-01-17] MEDS: Rivaroxaban 20 MG Tablet PO (17:04)
--- NOTE | 2019-01-17 17:09 | NURSING ---
Dr Hinojosa notified that pt continues to have SOB with exertion, Stats drop to low 80's but pt recovers quickly. Diminished lung sound Lt lower base. N.O. for Lasix 40mg IV X1 dose. She will reassess pt tomorrow. IV initiated-22g Lt Wrist x1 attempt. pt tolerated well
[2019-01-17 20:08] VITALS: BP 165/88; PULSE 78; RESP 16; TEMP 36.5; O2SAT 92
[2019-01-17] MEDS: LORazepam 0.5 MG Tablet PO (20:26)
[2019-01-17 20:27] VITALS: PULSE 78; RESP 18
[2019-01-18] MEDS: oxyCODONE 5 MG Tablet PO ×3 (04:59→17:14)
[2019-01-18] MEDS: Acetaminophen 325 MG Tablet 650 MG PO ×3 (05:02→20:48)
[2019-01-18 06:36] VITALS: PULSE 69; RESP 18; O2SAT 96
[2019-01-18] MEDS: Ipratropium 0.5 MG/2.5 ML SOLUTION INHALATION ×4 (06:36→18:44)
--- NOTE | 2019-01-18 07:35 | PCM.PN.HOSP ---
Subjective: Patient was seen and examined. He has been having shortness of breath with exertion. He was said to have drop to SPo2 80s therapy yesterday. Denied any dizziness or chest pain. He seemed to have recovered fairly rapidly. No fever or chills. Given Lasix 40 mg IV x1. Patient admits to voiding a lot. I's and O's are not accurate in the system Vitals/I&O's: Vital Signs Temp Pulse Resp BP Pulse Ox 97.7 F L 69 18 165/88 H 96 01/17/19 20:08 01/18/19 06:36 01/18/19 06:36 01/17/19 20:08 01/18/19 06:36 Oxygen Flow Rate (L/min) 2 Oxygen Delivery Method Room Air Weight: 132.6 kg Body Mass Index (BMI) 37.4 Intake and Output for Last 24 Hours 01/16/19 01/17/19 01/18/19 23:59 23:59 23:59 Intake Total 480 / 480 880 / 880 Output Total 250 / 250 Balance 480 / 480 630 / 630 General: Alert, Oriented x3, Cooperative, No apparent distress, - - obese, on room air, appears comfortable HEENT: Atraumatic, PERRLA, EOMI, Normocephalic Oral: Moist Mucosa Neck: Supple Lungs: Normal air movement, Diminished - few crackles heard at lung bases Cardiovascular: Regular rate, Regular Rhythm, Normal S1, Normal S2 Abdomen: Bowel Sounds Present, Soft, Non Tender, No Hepato-splenomegaly, Obese Extremities: Edema - Bilateral leg edema, +3, Sharan wrapped Musculoskeletal: No Tenderness to Palpation of Joints or Extremities Lymphatic: No Cervical, Supraclavicular, or Inguinal Adenopathy Neurological: Cranial nerves II-XII grossly intact, Neuro grossly intact Psych/Mental Status: Normal Affect, Appropriate Current Medications Acetaminophen (Tylenol) 650 mg PO Q8 [facility] Last Admin: 01/18/19 05:02 Dose: 650 mg Amiodarone HCl (Cordarone) 200 mg PO DAILY@0800 [facility] Last Admin: 01/17/19 08:57 Dose: 200 mg Bisacodyl (Dulcolax) 10 mg RECTAL .PRN X 1 PRN PRN Reason: Constipation Calcium Carbonate (Tums) 500 mg PO BIDCM [facility] Last Admin: 03/07/19 17:05 Dose: 500 mg Carvedilol (Coreg) 25 mg PO BID [facility] Last Admin: 01/17/19 20:27 Dose: 25 mg Cholecalciferol (Vitamin D) 2,000 unit PO DAILY@0800 [facility] Last Admin: 01/17/19 08:56 Dose: 2,000 unit Folic Acid (Folic Acid) 1 mg PO DAILY@0800 [facility] Last Admin: 01/17/19 08:57 Dose: 1 mg Furosemide (Lasix) 40 mg PO DAILY [facility] Last Admin: 01/17/19 08:56 Dose: 40 mg Hydroxychloroquine Sulfate (Plaquenil) 200 mg PO BID [facility] Last Admin: 01/17/19 20:26 Dose: 200 mg Sodium Chloride () 250 mls @ 15 mls/hr IV .[id number] PRN PRN Reason: SALINE FLUSH Ipratropium [place] (Atrovent) 0.5 mg INHALATION Q4HWA.RT [facility] Last Admin: 01/18/19 06:36 Dose: 0.5 mg Lorazepam (Ativan) 0.5 mg PO QHS PRN PRN PRN Reason: SLEEP Last Admin: 01/17/19 20:26 Dose: 0.5 mg Losartan Potassium (Cozaar) 100 mg PO DAILY [facility] Last Admin: 01/17/19 08:56 Dose: 100 mg Magnesium Hydroxide (Milk Of Magnesia) 30 ml PO .PRN X 1 PRN PRN Reason: Constipation Methotrexate (Methotrexate) 20 mg PO Mo@1000 [facility] Last Admin: 01/14/19 09:53 Dose: 20 mg Oxycodone HCl (Oxyir) 5 - 10 mg PO Q4H PRN PRN PRN Reason: MOD-SEVERE PAIN (4-10/10) Last Admin: 01/18/19 04:59 Dose: 10 mg Pantoprazole Sodium (Protonix) 40 mg PO DAILY [facility] Last Admin: 01/17/19 08:56 Dose: 40 mg Polyethylene Glycol (Miralax) 17 gm PO DAILY [facility] Last Admin: 01/17/19 08:57 Dose: 17 gm Rivaroxaban (Xarelto) 20 mg PO DAILY@1700 [facility] Last Admin: 01/17/19 17:04 Dose: 20 mg Senna/Docusate Sodium (Senokot-S, Yuliet-Colace) 2 tablet PO BID [facility] Last Admin: 01/17/19 20:27 Dose: 2 tablet Sodium Chloride () 5 - 15 ml IV UD PRN PRN Reason: SALINE FLUSH Last Admin: 01/17/19 20:27 Dose: 10 ml Medical Necessity - Tobacco Use Smoking Status: Never smoker Assessment/Plan All Active Problems (Last Reviewed 11/08/18 @ 14:38 by Felipe Harley MD) Debility (Acute) Small bowel obstruction (Resolved) 70-year-old male with multiple comorbidities who comes in with debility status post left total hip replacement in November 2018. Patient was found to have a moderate loculated left pleural effusion and has been exertional shortness of breath. 1. Dyspnea on exertion secondary to moderate loculated left pleural effusion Discussed with event sales representative, recommends cardiothoracic consult and evaluation for the loculated effusion. Chest ultrasound on 01/14/19 showed small-moderate left pleural effusion with septations. Patient is on Lasix 40 mg daily, no accurate I's and O's as well as daily weights in the system Will increase Lasix to 40 mg twice daily, strict I & Os, repeat chest ultrasound on 01/21/19. Continue to encourage use of incentive spirometer 2. Debility secondary to recent left total hip replacement, PT and OT ongoing 3. 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 Hypertension, controlled, on carvedilol, continue to monitor vitals 5. Paroxysmal atrial fibrillation, in normal sinus rhythm, on amiodarone and Xarelto 6. DVT PPx- Xarelto Code Visit Inpatient E&M: 96717 Subs Hosp L2
[2019-01-18 08:28] VITALS: BP 134/69; PULSE 72; RESP 18; TEMP 36.8; O2SAT 94
[2019-01-18] MEDS: Carvedilol 25 MG Tablet PO ×2 (08:31→20:49)
[2019-01-18] MEDS: Hydroxychloroquine 200 MG Tablet PO ×2 (08:31→20:49)
[2019-01-18] MEDS: Pantoprazole Sodium 40 MG Tablet PO (08:31)
[2019-01-18] MEDS: Furosemide 40 MG Tablet PO ×2 (08:31→17:13)
[2019-01-18] MEDS: Polyethylene Glycol 3350 17 GM PACKET PO (08:31)
[2019-01-18] MEDS: Losartan Potassium 100 MG Tablet PO (08:31)
[2019-01-18] MEDS: Folic Acid 1 MG Tablet PO (08:32)
[2019-01-18] MEDS: Calcium Carbonate 500 MG Tablet PO ×2 (08:32→17:14)
[2019-01-18] MEDS: Senna/Docusate Sodium 1 Tablet 2 TABLET PO ×2 (08:32→20:49)
[2019-01-18] MEDS: Amiodarone 200 MG Tablet PO (08:32)
[2019-01-18 08:40] LABS: Absolute Lymphocyte Count 1.83 X10^3/ul (0.83-4.51); Absolute Neutrophil Count 6.5 X10^3/uL (2.0-7.7); Basophil# 0.03 X10^3/uL; Basophil% 0.3 % (0-1); Eosinophil# 0.28 X10^3/uL; Eosinophils% 3.1 % (0-5); Hematocrit 29.7 % (40-54); Hemoglobin 9.3 g/dl (13.0-16.5); Lymphocyte # 1.83 X10^3/ul (4.0); Lymphocyte % 20.3 % (19-41); Mean Corp Hgb Conc 31.3 g/gl (32-36); Mean Corpuscular Hgb 32.6 pg (27.0-32.0); Mean Corpuscular Volume 104.2 fL (80-94); Mean Platelet Vol. 9.1 fl (6.2-12.0); Monocyte% 4.4 % (0-10); Neutrophil # 6.46 X10^3/uL (2.7-7.7); Neutrophil % 71.7 % (47-70); POSITIVE COUNT NO; POSITIVE DIFFERENTIAL NO; POSITIVE MORPHOLOGY NO; Platelet Count 254 K/mm3 (150-450); RBC Distribution Width CV 14.3 % (11.6-14.6); Red Blood Count 2.85 M/mm3 (4.6-6.2)
[2019-01-18 08:58] LABS: Anion Gap 6 (5-15); BUN 24 mg/dL (7-18); BUN/Creat Ratio 19.7 RATIO (10-20); Calcium,Total 7.8 mg/dL (8.5-10.1); Chloride 101 mmol/L (98-107); Creatinine, Serum 1.22 mg/dL (0.70-1.30); EST Glomerular Filtration Rate 61 mL/min (>60); Est Glom Filt Rate - Afr Amer 74 mL/min (>60); Estimated Creatinine Clearance 58.02 ml/min; Glucose 140 mg/dL (74-106); Potassium 3.6 mmol/L (3.5-5.1); Sodium Level 139 mmol/L (136-145)
[2019-01-18] MEDS: 0.9% NaCl Peripheral Flush Adult/Peds IV (09:15)
[2019-01-18 10:43] VITALS: PULSE 70; RESP 16
--- NOTE | 2019-01-18 11:01 | PCM.PN.NEU ---
Subjective: No issues overnight. Care discussed with the nursing staff. Further therapy details per PT/OT notes. Continues to have mild shortness of breath. - Physical Exam General: Alert HEENT: Normocephalic Neck: Supple Lungs: Normal air movement Cardiovascular: Normal S1, Normal S2 Abdomen: Bowel Sounds Present Extremities: No cyanosis Neurological: Cranial nerves II-XII grossly intact, Deep Tendon Reflexes 2+/4 and Symmetrical, Neuro grossly intact, Motor Exam 5/5 strength throughout, Muscle tone normal, Sensory exam intact to light touch and pain, Coordination normal Psych/Mental Status: Normal Affect Vital Signs Temp Pulse Resp BP Pulse Ox 98.2 F 72 18 134/69 H 94 01/18/19 08:28 01/18/19 08:28 01/18/19 08:28 01/18/19 08:28 01/18/19 08:28 Oxygen Flow Rate (L/min) 2 Oxygen Delivery Method Room Air Weight: 131.633 kg Body Mass Index (BMI) 37.4 Intake and Output for Last 24 Hours 01/16/19 01/17/19 01/18/19 23:59 23:59 23:59 Intake Total 480 / 480 880 / 880 600 / 600 Output Total 250 / 250 Balance 480 / 480 630 / 630 600 / 600 Laboratory Tests Past 24 Hrs 01/18/19 01/18/19 08:25 08:25 WBC 9.0 RBC 2.85 L Hgb 9.3 L Hct 29.7 L MCV 104.2 H MCH 32.6 H MCHC 31.3 L RDW 14.3 RDW Differential 54.0 H Plt Count 254 MPV 9.1 Immature Gran % (Auto) 0.200 Neut % (Auto) 71.7 H Lymph % (Auto) 20.3 [place] % (Auto) 4.4 Eos % (Auto) 3.1 Baso % (Auto) 0.3 Absolute Neuts (auto) 6.5 Absolute Lymphs (auto) 1.83 Total Counted Not Reportable Sodium 139 Potassium 3.6 Chloride 101 Carbon Dioxide 32.0 Anion Gap 6 BUN 24 H Creatinine 1.22 Estim Creat Clear Calc 58.02 Est GFR (MDRD) Af Amer 74 Est GFR (MDRD) Non-Af 61 BUN/Creatinine Ratio 19.7 Glucose 140 H Calcium 7.8 L Medical Necessity - Tobacco Use Smoking Status: Never smoker Assessment/Plan All Active Problems (Last Reviewed 12/27/18 @ 14:38 by Felipe Harley MD) Debility (Acute) Small bowel obstruction (Resolved) The patient is a 78 year old M with PMH of HTN, RA, A. fib (on Xarelto), H/O small bowel obstruction, mechanical fall with impacted nondisplaced subcapital fracture of left hip S/P closed reduction with pinning of left hip by Dr. Zhu on 12/10/2018 now admitted to [facility] on 01/11/2019 with debility S/P conversion of previous hip surgery to total hip replacement by Dr. Zhu on 01/09/2019, for greater than 3 hours therapy daily with the aim of returning back home at or near his prior level of functional independence. Patient had a fall in November 2017 following which he had left hip pinning done and was in the rehab following that, later discharged to [place] at that time, but later patient was not able to put weight and had continued pain,so due to his failed left hip pinning, he underwent elective total left hip replacement as noted above. He lives with his , uses cane and a Rollator to ambulate, denies any frequent falls, does drive and does not need any assistance for his ADLs. He lives in [place], and has 2-3 steps going into the house. Per patient he has a history of RA and is on methotrexate 2.5 mg 8 tablets once weekly for the same. At present patient denies any new onset of headache, dizziness, visual disturbances, speech disturbances, new onset focal motor weakness or sensory loss. He had some SOB this morning for which he had Cxray the report of which was reported to show moderate Pleural effusion, loculated. Plan ?PT for gait stability and balance ?OT for ADLs ?Analgesics as needed ?Bowel protocol ?Total left left replacement, by Dr. Zhu on 01/09/2019?per surgery recommendation weightbearing as tolerated. Further management of left hip replacement per orthopedic surgery recommendation. Further postsurgical management of left hip replacement per orthopedic surgery recommendation. ?HTN?Coreg 25 mg p.o. twice daily, hydrochlorothiazide 25 mg daily, losartan 100 mg p.o. daily -Pleural effusion-on Lasix. Chest ultrasound 01/14/19- small moderate size left pleural effusion with occasional internal septations. Will try to obtain pulmonology consult. Hospitalist following. May need cardiothoracic surgery consult. Repeat Chest ultrasound on 01/21/19 per hospitalist recommendations ?A. fib?on amiodarone and Xarelto 20 mg once daily ?RA?on methotrexate 2.5 mg p.o. 8 tablets once a week, on folic acid and on Plaquenil 200 mg p.o. twice daily ?GI/DVT prophylaxis?on Pantoprazole and Xarelto 20 mg p.o. once daily ?Fall precautions ?Further medical management per hospitalist recommendation. Hospitalist consult ?Follow-up with PCP, Pulmonology, Cardiothoracic surgery and orthopedic surgeon as an outpatient following discharge.
--- NOTE | 2019-01-18 13:35 | PCM.RU.DC ---
Rehab Discharge Summary DATE OF ADMISSION: 01/11/19 DATE OF DISCHARGE: 01/25/19 - Rehab Diagnosis Debility post total hip replacement. Subjective: No issues overnight. Care discussed with the nursing staff. - Physical Exam General: Alert HEENT: Normocephalic Neck: Supple Lungs: Normal air movement Cardiovascular: Normal S1, Normal S2 Abdomen: Bowel Sounds Present Extremities: No cyanosis Neurological: Cranial nerves II-XII grossly intact, Deep Tendon Reflexes 2+/4 and Symmetrical, Neuro grossly intact, Motor Exam 5/5 strength throughout, Muscle tone normal, Sensory exam intact to light touch and pain, Coordination normal Psych/Mental Status: Normal Affect Vital Signs Temp Pulse Resp BP Pulse Ox 98.2 F 70 16 134/69 H 94 01/18/19 08:28 01/18/19 10:43 01/18/19 10:43 01/18/19 08:28 01/18/19 08:28 Oxygen Flow Rate (L/min) 2 Oxygen Delivery Method Room Air Weight: 131.633 kg Body Mass Index (BMI) 37.4 Intake and Output for Last 24 Hours 01/16/19 01/17/19 01/18/19 23:59 23:59 23:59 Intake Total 480 / 480 880 / 880 840 / 840 Output Total 250 / 250 Balance 480 / 480 630 / 630 840 / 840 Laboratory Tests Past 24 Hrs 01/18/19 01/18/19 08:25 08:25 WBC 9.0 RBC 2.85 L Hgb 9.3 L Hct 29.7 L MCV 104.2 H MCH 32.6 H MCHC 31.3 L RDW 14.3 RDW Differential 54.0 H Plt Count 254 MPV 9.1 Immature Gran % (Auto) 0.200 Neut % (Auto) 71.7 H Lymph % (Auto) 20.3 [place] % (Auto) 4.4 Eos % (Auto) 3.1 Baso % (Auto) 0.3 Absolute Neuts (auto) 6.5 Absolute Lymphs (auto) 1.83 Total Counted Not Reportable Sodium 139 Potassium 3.6 Chloride 101 Carbon Dioxide 32.0 Anion Gap 6 BUN 24 H Creatinine 1.22 Estim Creat Clear Calc 58.02 Est GFR (MDRD) Af Amer 74 Est GFR (MDRD) Non-Af 61 BUN/Creatinine Ratio 19.7 Glucose 140 H Calcium 7.8 L Discharge Diet: - - Regular Diet Weight Bearing Status: Weight bearing as tolerated Call your doctor if your incision/area has: Continuous Slow Oozing, Sudden Increased Bleeding, Increased Pain/ Swelling, Increased Redness, Foul Smelling Discharge, Swelling at the incision site Call your doctor if you observe: Fever of 101 or Higher, Coldness, Increased Pain, Numbness or Tingling, Change in Color, Inability to urinate, Inability to have a bowel movement, Using more than one pad per hour, Shortness of breath, Dizziness, Fainting spells, Swelling in the ankles, Chest pain, Prolonged hiccoughing, Increased palpitations (irregular heartbeat), Calf discomfort, Uncontrolled pain Home Medications: Medications to take at Discharge Folic Acid 1 mg PO DAILY 11/07/18 Hydroxychloroquine [Plaquenil] 200 mg PO BID 11/07/18 Methotrexate 8 tab PO MO 11/07/18 Amiodarone HCl [Cordarone] 200 mg PO DAILY 12/13/18 Carvedilol [Coreg (Beta Tressa)] 25 mg PO BID 12/13/18 Cholecalciferol (VIT D3) [Vitamin D3] 2,000 unit PO DAILY@0800 12/13/18 Rivaroxaban [Xarelto] 20 mg PO DAILY 12/13/18 Pantoprazole Sodium [Protonix] 40 mg PO DAILY 01/08/19 Calcium Carbonate [Tums] 500 mg PO BIDCM tablet 01/18/19 Furosemide [Lasix] 40 mg PO 1000,1800 tablet 01/18/19 Losartan Potassium [Cozaar] 100 mg PO DAILY tablet 01/18/19 Primary Care Physician: [facility] ,Out of [Primary Care Provider] - Please follow up with your Primary Care Physician in: Follow up with PCP in 1-2 weeks When: F/U with Cardiothoracic surgery for loculated Pleural effusion in 1-2 wks When: Follow up with Pulmonology in 1-2 weeks When: Follow up with Orthopedic surgery in 1-2 weeks Rehab Course The patient is a 78 year old M with PMH of HTN, RA, A. fib (on Xarelto), H/O small bowel obstruction, mechanical fall with impacted nondisplaced subcapital fracture of left hip S/P closed reduction with pinning of left hip by Dr. Zhu on 12/10/2018 now admitted to [facility] on 01/11/2019 with debility S/P conversion of previous hip surgery to total hip replacement by Dr. Zhu on 01/09/2019, for greater than 3 hours therapy daily with the aim of returning back home at or near his prior level of functional independence. Patient had a fall in November 2017 following which he had left hip pinning done and was in the rehab following that, later discharged to [place] at that time, but later patient was not able to put weight and had continued pain,so due to his failed left hip pinning, he underwent elective total left hip replacement as noted above. He lives with his , uses cane and a Rollator to ambulate, denies any frequent falls, does drive and does not need any assistance for his ADLs. He lives in a [place], and has 2-3 steps going into the house. Per patient he has a history of RA and is on methotrexate 2.5 mg 8 tablets once weekly for the same. At present patient denies any new onset of headache, dizziness, visual disturbances, speech disturbances, new onset focal motor weakness or sensory loss. He had some SOB this morning for which he had Cxray the report of which was reported to show moderate Pleural effusion, loculated. While in the rehab he had chest ultrasound which reported small moderate size left pleural effusion with occasional internal septations. Hospitalist and pulmonology consult obtained. Patient was seen by Dr. Daniels from pulmonology and recommended thoracentesis, patient is scheduled for arthrocentesis following discharge on Monday01/25/19, per pulmonology recommendation Xarelto on hold for 3 days prior to thoracentesis and to restart Xarelto daily the day after thoracentesis. Tolerated therapies well. Had further uncomplicated rehab stay. Needs to follow up with Cardiothoracic surgery and pulmonology as outpatient for loculated pleural effusion and SOB. Follow-up with PCP, Pulmonology, Cardiothoracic surgery and orthopedic surgeon as an outpatient following discharge. Meaningful Use Info Meaningful Use Diagnoses (Choose all that apply): None applicable
[2019-01-18 14:50] VITALS: PULSE 70; RESP 16
--- NOTE | 2019-01-18 15:15 | NURSING ---
patient has an appt with dr hartmann on monday01/21/19 @ 0574 d/t sob.
[2019-01-18] MEDS: Rivaroxaban 20 MG Tablet PO (17:14)
[2019-01-18 18:44] VITALS: PULSE 85; RESP 18
[2019-01-18 21:00] VITALS: BP 147/84; PULSE 85; RESP 18; TEMP 36.8; O2SAT 91
[2019-01-19] MEDS: oxyCODONE 5 MG Tablet PO ×2 (05:31→13:52)
[2019-01-19] MEDS: Acetaminophen 325 MG Tablet 650 MG PO ×3 (06:00→22:47)
[2019-01-19] MEDS: Calcium Carbonate 500 MG Tablet PO (06:06)
[2019-01-19 06:41] VITALS: PULSE 74; RESP 16; O2SAT 89
[2019-01-19] MEDS: Ipratropium 0.5 MG/2.5 ML SOLUTION INHALATION ×2 (06:41→11:11)
[2019-01-19 07:14] VITALS: BP 139/70; PULSE 72; RESP 20; TEMP 36.5; O2SAT 92
[2019-01-19] MEDS: Polyethylene Glycol 3350 17 GM PACKET PO (07:18)
[2019-01-19] MEDS: Losartan Potassium 100 MG Tablet PO (07:18)
[2019-01-19] MEDS: Folic Acid 1 MG Tablet PO (07:18)
[2019-01-19] MEDS: Amiodarone 200 MG Tablet PO (07:18)
[2019-01-19] MEDS: Hydroxychloroquine 200 MG Tablet PO ×2 (07:18→22:48)
[2019-01-19] MEDS: Senna/Docusate Sodium 1 Tablet 2 TABLET PO ×2 (07:18→22:47)
[2019-01-19] MEDS: Furosemide 40 MG Tablet PO ×2 (07:18→18:00)
[2019-01-19] MEDS: Carvedilol 25 MG Tablet PO ×2 (07:18→22:48)
[2019-01-19] MEDS: Pantoprazole Sodium 40 MG Tablet PO (07:18)
[2019-01-19] MEDS: 0.9% NaCl Peripheral Flush Adult/Peds IV (07:23)
[2019-01-19 11:11] VITALS: PULSE 73; RESP 16
[2019-01-19] MEDS: Rivaroxaban 20 MG Tablet PO (18:00)
[2019-01-19 19:30] VITALS: BP 129/75; PULSE 81; RESP 16; TEMP 36.6; O2SAT 96
[2019-01-20] VITALS (7 sets, daily range): BP systolic 122–137; BP diastolic 64–77; PULSE 68–80; RESP 16–18; TEMP 36.6–36.7; O2SAT 90–95
[2019-01-20] MEDS: oxyCODONE 5 MG Tablet PO ×3 (04:17→21:54)
[2019-01-20] MEDS: Acetaminophen 325 MG Tablet 650 MG PO ×3 (07:02→20:21)
[2019-01-20] MEDS: Furosemide 40 MG Tablet PO ×2 (08:56→17:16)
[2019-01-20] MEDS: Folic Acid 1 MG Tablet PO (08:56)
[2019-01-20] MEDS: Calcium Carbonate 500 MG Tablet PO ×2 (08:56→17:16)
[2019-01-20] MEDS: Losartan Potassium 100 MG Tablet PO (08:56)
[2019-01-20] MEDS: Hydroxychloroquine 200 MG Tablet PO ×2 (08:57→20:22)
[2019-01-20] MEDS: Pantoprazole Sodium 40 MG Tablet PO (08:57)
[2019-01-20] MEDS: Amiodarone 200 MG Tablet PO (08:57)
[2019-01-20] MEDS: Senna/Docusate Sodium 1 Tablet 2 TABLET PO (08:57)
[2019-01-20] MEDS: Carvedilol 25 MG Tablet PO ×2 (08:57→20:22)
[2019-01-20] MEDS: Polyethylene Glycol 3350 17 GM PACKET PO (08:58)
[2019-01-20] MEDS: Ipratropium 0.5 MG/2.5 ML SOLUTION INHALATION ×3 (11:25→19:39)
--- NOTE | 2019-01-20 13:35 | NURSING ---
patient ambulated >150 ft this shift with walker multiple times and on nustep.
[2019-01-20] MEDS: Rivaroxaban 20 MG Tablet PO (17:16)
--- NOTE | 2019-01-20 20:39 | PCM.PN.HOSP ---
Subjective: Patient was seen and examined. Overall, he feels improved. He denies chest pain. He has SOB with exertion. Denies fever, chills. Objective: General: Alert, Oriented x3, Cooperative, No apparent distress, - - in chair, obese, on room air, appears comfortable HEENT: Atraumatic, PERRLA, EOMI, Normocephalic Oral: Moist Mucosa Neck: Supple Lungs: Normal air movement, Diminished Cardiovascular: Regular rate, Regular Rhythm, Normal S1, Normal S2 Abdomen: Bowel Sounds Present, Soft, Non Tender, No Hepato-splenomegaly, Obese Extremities: Edema - Bilateral leg edema, +3, Sharan wrapped Musculoskeletal: No Tenderness to Palpation of Joints or Extremities Lymphatic: No Cervical, Supraclavicular, or Inguinal Adenopathy Neurological: Cranial nerves II-XII grossly intact, Neuro grossly intact Psych/Mental Status: Normal Affect, Appropriate Vitals/I&O's: Vital Signs Temp Pulse Resp BP Pulse Ox 97.8 F 75 18 134/64 H 92 01/20/19 19:12 01/20/19 19:39 01/20/19 19:39 01/20/19 19:12 01/20/19 19:39 Oxygen Flow Rate (L/min) 2 Oxygen Delivery Method Room Air Weight: 129.7 kg Body Mass Index (BMI) 37.4 Intake and Output for Last 24 Hours 01/18/19 01/19/19 01/21/19 23:59 23:59 00:59 Intake Total 1080 / 1080 640 / 640 1360 / 1360 Output Total 375 / 375 1325 / 1325 1400 / 1400 Balance 705 / 705 -685 / -685 -40 / -40 Current Medications Acetaminophen (Tylenol) 650 mg PO Q8 [facility] Last Admin: 01/20/19 20:21 Dose: 650 mg Amiodarone HCl (Cordarone) 200 mg PO DAILY@0800 [facility] Last Admin: 01/20/19 08:57 Dose: 200 mg Bisacodyl (Dulcolax) 10 mg RECTAL .PRN X 1 PRN PRN Reason: Constipation Calcium Carbonate (Tums) 500 mg PO BIDCM [facility] Last Admin: 01/20/19 17:16 Dose: 500 mg Carvedilol (Coreg) 25 mg PO BID [facility] Last Admin: 01/20/19 20:22 Dose: 25 mg Cholecalciferol (Vitamin D) 2,000 unit PO DAILY@0800 [facility] Last Admin: 01/20/19 08:56 Dose: 2,000 unit Folic Acid (Folic Acid) 1 mg PO DAILY@0800 [facility] Last Admin: 01/20/19 08:56 Dose: 1 mg Furosemide (Lasix) 40 mg PO 1000,1800 [facility] Last Admin: 01/20/19 17:16 Dose: 40 mg Hydroxychloroquine Sulfate (Plaquenil) 200 mg PO BID [facility] Last Admin: 01/20/19 20:22 Dose: 200 mg Sodium Chloride () 250 mls @ 15 mls/hr IV .[id number] PRN PRN Reason: SALINE FLUSH Ipratropium [place] (Atrovent) 0.5 mg INHALATION Q4HWA.RT [facility] Last Admin: 01/20/19 19:39 Dose: 0.5 mg Lorazepam (Ativan) 0.5 mg PO QHS PRN PRN PRN Reason: SLEEP Last Admin: 01/17/19 20:26 Dose: 0.5 mg Losartan Potassium (Cozaar) 100 mg PO DAILY [facility] Last Admin: 01/20/19 08:56 Dose: 100 mg Magnesium Hydroxide (Milk Of Magnesia) 30 ml PO .PRN X 1 PRN PRN Reason: Constipation Methotrexate (Methotrexate) 20 mg PO Mo@1000 [facility] Last Admin: 01/14/19 09:53 Dose: 20 mg Oxycodone HCl (Oxyir) 5 - 10 mg PO Q4H PRN PRN PRN Reason: MOD-SEVERE PAIN (4-10) Last Admin: 01/20/19 10:01 Dose: 10 mg Pantoprazole Sodium (Protonix) 40 mg PO DAILY [facility] Last Admin: 01/20/19 08:57 Dose: 40 mg Polyethylene Glycol (Miralax) 17 gm PO DAILY [facility] Last Admin: 01/20/19 08:58 Dose: 17 gm Rivaroxaban (Xarelto) 20 mg PO DAILY@1700 [facility] Last Admin: 01/20/19 17:16 Dose: 20 mg Senna/Docusate Sodium (Senokot-S, Yuliet-Colace) 2 tablet PO BID [facility] Last Admin: 01/20/19 13:45 Dose: Not Given Sodium Chloride () 5 - 15 ml IV UD PRN PRN Reason: SALINE FLUSH Medical Necessity - Tobacco Use Smoking Status: Never smoker Assessment/Plan All Active Problems (Last Reviewed 11/08/18 @ 14:38 by Felipe Harley MD) Debility (Acute) Small bowel obstruction (Resolved) 70-year-old male with multiple comorbidities who comes in with debility status post left total hip replacement in November 2018. Patient was found to have a moderate loculated left pleural effusion and has been exertional shortness of breath. 1. Dyspnea on exertion secondary to moderate loculated left pleural effusion, on po lasix, diuresing well, lost more than 2Kg Going for repeat chest ultrasound tomorrow. Continue on Lasix PO, fluid restriction, strict I & Os Continue to encourage use of incentive spirometer 2. Debility secondary to recent left total hip replacement, PT and OT ongoing 3. 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 Hypertension, controlled, on carvedilol, continue to monitor vitals 5. Paroxysmal atrial fibrillation, in normal sinus rhythm, on amiodarone and Xarelto 6. DVT PPx- Xarelto Code Visit Inpatient E&M: 91656 Subs Hosp L2
[2019-01-21] MEDS: Acetaminophen 325 MG Tablet 650 MG PO ×3 (05:41→19:56)
--- NOTE | 2019-01-21 06:00 | US_ITS ---
STUDY: SUPERFICIAL ULTRASOUND - PLEURAL EFFUSION SURVEY. REASON FOR EXAM: Male, 78 years old. History of pleural effusion. TECHNIQUE: A superficial ultrasound was performed with real-time and static silver-scale imaging. COMPARISON: Comparison is made with prior study of January 14, 2019. FINDINGS: Moderate sized left pleural effusion with evidence of septations. US/Chest IMPRESSION: Moderate left pleural effusion with septations. Electronically Signed: Donaldo Wyatt, at 14:51 EDT , Service support ,
[2019-01-21 06:55] LABS: Anion Gap 10 (5-15); BUN 18 mg/dL (7-18); BUN/Creat Ratio 14.6 RATIO (10-20); Chloride 101 mmol/L (98-107); Creatinine, Serum 1.23 mg/dL (0.70-1.30); EST Glomerular Filtration Rate 60 mL/min (>60); Est Glom Filt Rate - Afr Amer 73 mL/min (>60); Estimated Creatinine Clearance 57.55 ml/min; Glucose 113 mg/dL (74-106); Potassium 3.6 mmol/L (3.5-5.1); Sodium Level 142 mmol/L (136-145)
[2019-01-21 07:53] VITALS: BP 119/63; PULSE 72; RESP 16; TEMP 36.7; O2SAT 91
[2019-01-21] MEDS: Senna/Docusate Sodium 1 Tablet 2 TABLET PO ×2 (08:12→19:57)
[2019-01-21] MEDS: Pantoprazole Sodium 40 MG Tablet PO (08:12)
[2019-01-21] MEDS: Folic Acid 1 MG Tablet PO (08:12)
[2019-01-21] MEDS: Losartan Potassium 100 MG Tablet PO (08:12)
[2019-01-21] MEDS: Amiodarone 200 MG Tablet PO (08:12)
[2019-01-21] MEDS: Hydroxychloroquine 200 MG Tablet PO ×2 (08:12→19:56)
[2019-01-21] MEDS: Furosemide 40 MG Tablet PO ×2 (08:12→17:11)
[2019-01-21] MEDS: Methotrexate 2.5 MG Tablet 20 MG PO (08:13)
[2019-01-21] MEDS: Calcium Carbonate 500 MG Tablet PO ×2 (08:13→17:11)
[2019-01-21] MEDS: Polyethylene Glycol 3350 17 GM PACKET PO (08:13)
[2019-01-21] MEDS: Carvedilol 25 MG Tablet PO ×2 (08:13→19:57)
[2019-01-21] MEDS: oxyCODONE 5 MG Tablet PO (08:17)
[2019-01-21 11:20] VITALS: PULSE 79; RESP 18; O2SAT 92
[2019-01-21] MEDS: Ipratropium 0.5 MG/2.5 ML SOLUTION INHALATION ×2 (11:20→15:20)
--- NOTE | 2019-01-21 13:26 | PN.NEURO_ITS ---
Subjective: No issues overnight, going for repeat chest ultrasound today and pulmonology consult. Care discussed with nursing staff. On Lasix for moderate pleural effusion per hospitalist recommendation - Physical Exam General: Alert HEENT: Normocephalic Neck: Supple Lungs: Normal air movement Cardiovascular: Normal S1, Normal S2 Abdomen: Bowel Sounds Present Extremities: No cyanosis Neurological: Cranial nerves II-XII grossly intact, Deep Tendon Reflexes 2+/4 and Symmetrical, Neuro grossly intact, Motor Exam 5/5 strength throughout, Muscle tone normal, Sensory exam intact to light touch and pain, Coordination normal Psych/Mental Status: Normal Affect Vital Signs Temp Pulse Resp BP Pulse Ox 98.0 F 79 18 119/63 92 01/21/19 07:53 01/21/19 11:20 01/21/19 11:20 01/21/19 07:53 01/21/19 11:20 Oxygen Flow Rate (L/min) 2 Oxygen Delivery Method Room Air Weight: 130.2 kg Body Mass Index (BMI) 37.4 Intake and Output for Last 24 Hours 01/19/19 01/20/19 01/21/19 22:59 23:59 23:59 Intake Total 800 / 800 Output Total 200 / 200 Balance 600 / 600 Laboratory Tests Past 24 Hrs 01/21/19 06:30 Sodium 142 Potassium 3.6 Chloride 101 Carbon Dioxide 31.0 Anion Gap 10 BUN 18 Creatinine 1.23 Estim Creat Clear Calc 57.55 Est GFR (MDRD) Af Amer 73 Est GFR (MDRD) Non-Af 60 BUN/Creatinine Ratio 14.6 Glucose 113 H Calcium 8.0 L Medical Necessity - Tobacco Use Smoking Status: Never smoker Assessment/Plan All Active Problems (Last Reviewed 01/21/19 @ 12:44 by Marquita Mcallister) Debility (Acute) Small bowel obstruction (Resolved) The patient is a 78 year old M with PMH of HTN, RA, A. fib (on Xarelto), H/O small bowel obstruction, mechanical fall with impacted nondisplaced subcapital fracture of left hip S/P closed reduction with pinning of left hip by Dr. Zhu on 12/10/2018 now admitted to [facility] on 01/11/2019 with debility S/P conversion of previous hip surgery to total hip replacement by Dr. Zhu on 01/09/2019, for greater than 3 hours therapy daily with the aim of returning back home at or near his prior level of functional independence. Patient had a fall in November 2017 following which he had left hip pinning done and was in the rehab following that, later discharged to [place] at that time, but later patient was not able to put weight and had continued pain,so due to his failed left hip pinning, he underwent elective total left hip replacement as noted above. He lives with his , uses cane and a Rollator to ambulate, denies any frequent falls, does drive and does not need any assistance for his ADLs. He lives in a [place], and has 2-3 steps going into the house. Per patient he has a history of RA and is on methotrexate 2.5 mg 8 tablets once weekly for the same. At present patient denies any new onset of headache, dizziness, visual disturbances, speech disturbances, new onset focal motor weakness or sensory loss. He had some SOB this morning for which he had Cxray the report of which was reported to show moderate Pleural effusion, loculated. Plan ?PT for gait stability and balance ?OT for ADLs ?Analgesics as needed ?Bowel protocol ?Total left left replacement, by Dr. Zhu on 01/09/2019?per surgery recommendation weightbearing as tolerated. Further management of left hip replacement per orthopedic surgery recommendation. Further postsurgical management of left hip replacement per orthopedic surgery recommendation. ?HTN?Coreg, Lasix, and losartan -Pleural effusion-on Lasix. Chest ultrasound 01/14/19- small moderate size left pleural effusion with occasional internal septations. Will try to obtain pulmonology consult. Hospitalist following. May need cardiothoracic surgery consult. Repeat Chest ultrasound on 01/21/19 per hospitalist recommendations ?A. fib?on amiodarone and Xarelto 20 mg once daily ?RA?on methotrexate 2.5 mg p.o. 8 tablets once a week, on folic acid and on Plaq uenil 200 mg p.o. twice daily ?GI/DVT prophylaxis?on Pantoprazole and Xarelto 20 mg p.o. once daily ?Fall precautions ?Further medical management per hospitalist recommendation. Hospitalist consult ?Follow-up with PCP, Pulmonology, Cardiothoracic surgery and orthopedic surgeon as an outpatient following discharge.
--- NOTE | 2019-01-21 15:30 | NURSING ---
Dr. Daniels pulmonary seeing patient in office and aware of US of chest today. New orders received. and given update by their office and this nurse.
[2019-01-21] MEDS: Rivaroxaban 20 MG Tablet PO (17:11)
[2019-01-21 19:30] VITALS: BP 150/74; PULSE 91; RESP 18; TEMP 36.5; O2SAT 94
[2019-01-21] MEDS: LORazepam 0.5 MG Tablet PO (23:49)
[2019-01-22] MEDS: Acetaminophen 325 MG Tablet 650 MG PO ×3 (05:31→21:01)
[2019-01-22 06:47] VITALS: O2SAT 90
[2019-01-22 07:27] VITALS: BP 133/74; PULSE 69; RESP 16; TEMP 36.6; O2SAT 92
[2019-01-22] MEDS: oxyCODONE 5 MG Tablet PO ×2 (07:34→15:06)
[2019-01-22] MEDS: Calcium Carbonate 500 MG Tablet PO ×2 (07:34→17:23)
[2019-01-22] MEDS: Carvedilol 25 MG Tablet PO ×2 (07:35→21:02)
[2019-01-22] MEDS: Losartan Potassium 100 MG Tablet PO (07:35)
[2019-01-22] MEDS: Amiodarone 200 MG Tablet PO (07:35)
[2019-01-22] MEDS: Furosemide 40 MG Tablet PO ×2 (07:35→17:23)
[2019-01-22] MEDS: Pantoprazole Sodium 40 MG Tablet PO (07:35)
[2019-01-22] MEDS: Hydroxychloroquine 200 MG Tablet PO ×2 (07:36→21:03)
[2019-01-22] MEDS: Folic Acid 1 MG Tablet PO (07:37)
[2019-01-22] MEDS: Senna/Docusate Sodium 1 Tablet 2 TABLET PO ×2 (07:38→21:02)
[2019-01-22] MEDS: Polyethylene Glycol 3350 17 GM PACKET PO (07:39)
[2019-01-22 11:15] VITALS: PULSE 80; RESP 18; O2SAT 91
[2019-01-22] MEDS: Ipratropium 0.5 MG/2.5 ML SOLUTION INHALATION ×3 (11:15→20:10)
--- NOTE | 2019-01-22 15:03 | PCM.PN.NEU ---
Subjective: No issues overnight. Care discussed with the nursing staff. Patient was seen by operating table assembler Dr. Daniels in the outpatient office. Plan is to have thoracentesis on Monday following discharge. Patient Xarelto held for 3 days for thoracentesis as per pulmonology recommendations. - Physical Exam General: Alert HEENT: Normocephalic Neck: Supple Lungs: Normal air movement Cardiovascular: Normal S1, Normal S2 Abdomen: Bowel Sounds Present Extremities: No cyanosis Neurological: Cranial nerves II-XII grossly intact, Deep Tendon Reflexes 2+/4 and Symmetrical, Neuro grossly intact, Motor Exam 5/5 strength throughout, Muscle tone normal, Sensory exam intact to light touch and pain, Coordination normal Psych/Mental Status: Normal Affect Vital Signs Temp Pulse Resp BP Pulse Ox 97.9 F 80 18 133/74 H 91 01/22/19 07:27 01/22/19 11:15 01/22/19 11:15 01/22/19 07:27 01/22/19 11:15 Oxygen Flow Rate (L/min) 2 Oxygen Delivery Method Room Air Weight: 130.2 kg Body Mass Index (BMI) 37.4 Intake and Output for Last 24 Hours 01/20/19 01/21/19 01/22/19 23:59 23:59 23:59 Intake Total 1640 / 1640 880 / 880 Output Total 1400 / 1400 1100 / 1100 Balance 240 / 240 -220 / -220 Medical Necessity - Tobacco Use Smoking Status: Never smoker Assessment/Plan All Active Problems (Last Reviewed 01/21/19 @ 12:44 by Marquita Mcallister) Debility (Acute) Pleural effusion (Acute) Small bowel obstruction (Resolved) The patient is a 78 year old M with PMH of HTN, RA, A. fib (on Xarelto), H/O small bowel obstruction, mechanical fall with impacted nondisplaced subcapital fracture of left hip S/P closed reduction with pinning of left hip by Dr. Zhu on 12/10/2018 now admitted to [facility] on 01/11/2019 with debility S/P conversion of previous hip surgery to total hip replacement by Dr. Zhu on 01/09/2019, for greater than 3 hours therapy daily with the aim of returning back home at or near his prior level of functional independence. Patient had a fall in November 2017 following which he had left hip pinning done and was in the rehab following that, later discharged to [place] at that time, but later patient was not able to put weight and had continued pain,so due to his failed left hip pinning, he underwent elective total left hip replacement as noted above. He lives with his , uses cane and a Rollator to ambulate, denies any frequent falls, does drive and does not need any assistance for his ADLs. He lives in a [place] house, and has 2-3 steps going into the house. Per patient he has a history of RA and is on methotrexate 2.5 mg 8 tablets once weekly for the same. At present patient denies any new onset of headache, dizziness, visual disturbances, speech disturbances, new onset focal motor weakness or sensory loss. He had some SOB this morning for which he had Cxray the report of which was reported to show moderate Pleural effusion, loculated. Plan ?PT for gait stability and balance ?OT for ADLs ?Analgesics as needed ?Bowel protocol ?Total left left replacement, by Dr. Zhu on 01/09/2019?per surgery recommendation weightbearing as tolerated. Further management of left hip replacement per orthopedic surgery recommendation. Further postsurgical management of left hip replacement per orthopedic surgery recommendation. ?HTN?Coreg, Lasix, and losartan -Pleural effusion-on Lasix. Chest ultrasound 01/14/19- small moderate size left pleural effusion with occasional internal septations. Will try to obtain pulmonology consult. Hospitalist following. May need cardiothoracic surgery consult. Repeat Chest ultrasound on 01/21/19 per hospitalist recommendations ?A. fib?on amiodarone and Xarelto 20 mg once daily. Xarelto on hold for 3days per pulmonology for thoracentesis per pulmonary recommendation. ?RA?on methotrexate 2.5 mg p.o. 8 tablets once a week, on folic acid and on Plaquenil 200 mg p.o. twice daily ?GI/DVT prophylaxis?on Pantoprazole and Xarelto 20 mg p.o. once daily ?Fall precautions ?Further medical management per hospitalist recommendation. Hospitalist consult ?Follow-up with PCP, Pulmonology, Cardiothoracic surgery and orthopedic surgeon as an outpatient following discharge.
--- NOTE | 2019-01-22 15:07 | PN.NEURO_ITS ---
Subjective: No issues overnight. Care discussed with the nursing staff. Patient was seen by portable feed mill operator Dr. Daniels in the outpatient office. Plan is to have thoracentesis on Monday following discharge. Patient Xarelto held for 3 days for thoracentesis as per pulmonology recommendations. - Physical Exam General: Alert HEENT: Normocephalic Neck: Supple Lungs: Normal air movement Cardiovascular: Normal S1, Normal S2 Abdomen: Bowel Sounds Present Extremities: No cyanosis Neurological: Cranial nerves II-XII grossly intact, Deep Tendon Reflexes 2+/4 and Symmetrical, Neuro grossly intact, Motor Exam 5/5 strength throughout, Muscle tone normal, Sensory exam intact to light touch and pain, Coordination normal Psych/Mental Status: Normal Affect Vital Signs Temp Pulse Resp BP Pulse Ox 97.9 F 80 18 133/74 H 91 01/22/19 07:27 01/22/19 11:15 01/22/19 11:15 01/22/19 07:27 01/22/19 11:15 Oxygen Flow Rate (L/min) 2 Oxygen Delivery Method Room Air Weight: 130.2 kg Body Mass Index (BMI) 37.4 Intake and Output for Last 24 Hours 01/20/19 01/21/19 01/22/19 23:59 23:59 23:59 Intake Total 1640 / 1640 880 / 880 Output Total 1400 / 1400 1100 / 1100 Balance 240 / 240 -220 / -220 Medical Necessity - Tobacco Use Smoking Status: Never smoker Assessment/Plan All Active Problems (Last Reviewed 01/21/19 @ 12:44 by Marquita Mcallister) Debility (Acute) Pleural effusion (Acute) Small bowel obstruction (Resolved) The patient is a 78 year old M with PMH of HTN, RA, A. fib (on Xarelto), H/O small bowel obstruction, mechanical fall with impacted nondisplaced subcapital fracture of left hip S/P closed reduction with pinning of left hip by Dr. Zhu on 12/10/2018 now admitted to [facility] on 01/11/2019 with debility S/P conversion of previous hip surgery to total hip replacement by Dr. Zhu on 01/09/2019, for greater than 3 hours therapy daily with the aim of returning back home at or near his prior level of functional independence. Patient had a fall in November 2017 following which he had left hip pinning done and was in the rehab following that, later discharged to [place] at that time, but later patient was not able to put weight and had continued pain,so due to his failed left hip pinning, he underwent elective total left hip replacement as noted above. He lives with his , uses cane and a Rollator to ambulate, denies any frequent falls, does drive and does not need any assistance for his ADLs. He lives in a [place], and has 2-3 steps going into the house. Per patient he has a history of RA and is on methotrexate 2.5 mg 8 tablets once weekly for the same. At present patient denies any new onset of headache, dizziness, visual disturbances, speech disturbances, new onset focal motor weakness or sensory loss. He had some SOB this morning for which he had Cxray the report of which was reported to show moderate Pleural effusion, loculated. Plan ?PT for gait stability and balance ?OT for ADLs ?Analgesics as needed ?Bowel protocol ?Total left left replacement, by Dr. Zhu on 01/09/2019?per surgery recommendation weightbearing as tolerated. Further management of left hip replacement per orthopedic surgery recommendation. Further postsurgical management of left hip replacement per orthopedic surgery recommendation. ?HTN?Coreg, Lasix, and losartan -Pleural effusion-on Lasix. Chest ultrasound 01/14/19- small moderate size left pleural effusion with occasional internal septations. Will try to obtain pulmonology consult. Hospitalist following. May need cardiothoracic surgery c onsult. Repeat Chest ultrasound on 01/21/19 per hospitalist recommendations ?A. fib?on amiodarone and Xarelto 20 mg once daily. Xarelto on hold for 3days per pulmonology for thoracentesis per pulmonary recommendation. ?RA?on methotrexate 2.5 mg p.o. 8 tablets once a week, on folic acid and on Plaquenil 200 mg p.o. twice daily ?GI/DVT prophylaxis?on Pantoprazole and Xarelto 20 mg p.o. once daily ?Fall precautions ?Further medical management per hospitalist recommendation. Hospitalist consult ?Follow-up with PCP, Pulmonology, Cardiothoracic surgery and orthopedic surgeon as an outpatient following discharge.
[2019-01-22 16:15] VITALS: PULSE 76; RESP 16; O2SAT 92
[2019-01-22 19:19] VITALS: BP 149/71; PULSE 83; RESP 18; TEMP 36.4; O2SAT 93
[2019-01-22 20:10] VITALS: PULSE 77; RESP 18
[2019-01-22] MEDS: LORazepam 0.5 MG Tablet PO (23:01)
[2019-01-23] MEDS: Acetaminophen 325 MG Tablet 650 MG PO ×3 (05:49→20:39)
[2019-01-23 07:09] VITALS: BP 137/69; PULSE 72; RESP 16; TEMP 36.7; O2SAT 93
[2019-01-23] MEDS: Calcium Carbonate 500 MG Tablet PO ×2 (07:44→16:57)
[2019-01-23] MEDS: Hydroxychloroquine 200 MG Tablet PO ×2 (07:45→20:39)
[2019-01-23] MEDS: Furosemide 40 MG Tablet PO ×2 (07:45→16:57)
[2019-01-23] MEDS: Amiodarone 200 MG Tablet PO (07:45)
[2019-01-23] MEDS: Losartan Potassium 100 MG Tablet PO (07:45)
[2019-01-23] MEDS: Pantoprazole Sodium 40 MG Tablet PO (07:45)
[2019-01-23] MEDS: Carvedilol 25 MG Tablet PO ×2 (07:45→20:39)
[2019-01-23] MEDS: Folic Acid 1 MG Tablet PO (07:45)
[2019-01-23] MEDS: oxyCODONE 5 MG Tablet PO (10:11)
[2019-01-23 18:53] VITALS: PULSE 74; RESP 18
[2019-01-23] MEDS: Ipratropium 0.5 MG/2.5 ML SOLUTION INHALATION (18:53)
[2019-01-23 19:06] VITALS: BP 135/71; PULSE 83; RESP 18; TEMP 36.4; O2SAT 96
[2019-01-23] MEDS: Senna/Docusate Sodium 1 Tablet 2 TABLET PO (20:39)
[2019-01-23] MEDS: LORazepam 0.5 MG Tablet PO (22:32)
[2019-01-24] VITALS (7 sets, daily range): BP systolic 118–126; BP diastolic 46–56; PULSE 68–82; RESP 16–20; TEMP 36.4–36.7; O2SAT 91–96
[2019-01-24] MEDS: Acetaminophen 325 MG Tablet 650 MG PO ×3 (06:23→20:52)
[2019-01-24] MEDS: Ipratropium 0.5 MG/2.5 ML SOLUTION INHALATION ×4 (07:05→19:00)
[2019-01-24] MEDS: Hydroxychloroquine 200 MG Tablet PO ×2 (08:28→20:51)
[2019-01-24] MEDS: Furosemide 40 MG Tablet PO ×2 (08:28→17:40)
[2019-01-24] MEDS: oxyCODONE 5 MG Tablet PO ×3 (08:29→20:52)
[2019-01-24] MEDS: Amiodarone 200 MG Tablet PO (08:29)
[2019-01-24] MEDS: Losartan Potassium 100 MG Tablet PO (08:29)
[2019-01-24] MEDS: Carvedilol 25 MG Tablet PO ×2 (08:29→20:52)
[2019-01-24] MEDS: Pantoprazole Sodium 40 MG Tablet PO (08:29)
[2019-01-24] MEDS: Folic Acid 1 MG Tablet PO (08:29)
[2019-01-24] MEDS: Calcium Carbonate 500 MG Tablet PO ×2 (08:29→17:40)
[2019-01-24] MEDS: Senna/Docusate Sodium 1 Tablet 2 TABLET PO ×2 (08:29→20:51)
--- NOTE | 2019-01-24 10:31 | PCM.PN.NEU ---
Subjective: No issues overnight. Care discussed with the nursing staff. After the team meeting today. All questions were answered. Patient was seen by circular knife cutter machine Dr. Daniels in the outpatient office. Plan is to have thoracentesis on Monday following discharge. Patient Xarelto held for 3 days for thoracentesis as per pulmonology recommendations. Per pulmonology they do not want him to be on baby aspirin either prior to thoracentesis. Per pulmonology Dr. Daniels okay to resume Xarelto the day after thoracentesis. To resume Xarelto on 01/26/2019. Patient will be discharged home tomorrow 01/25/2019 - Physical Exam General: Alert HEENT: Normocephalic Neck: Supple Lungs: Normal air movement Cardiovascular: Normal S1, Normal S2 Abdomen: Bowel Sounds Present Extremities: No cyanosis Neurological: Cranial nerves II-XII grossly intact, Deep Tendon Reflexes 2+/4 and Symmetrical, Neuro grossly intact, Motor Exam 5/5 strength throughout, Muscle tone normal, Sensory exam intact to light touch and pain, Coordination normal Psych/Mental Status: Normal Affect Vital Signs Temp Pulse Resp BP Pulse Ox 97.6 F L 68 16 126/46 H 91 01/24/19 08:12 01/24/19 08:12 01/24/19 08:12 01/24/19 08:12 01/24/19 08:12 Oxygen Flow Rate (L/min) 2 Oxygen Delivery Method Room Air Weight: 129.9 kg Body Mass Index (BMI) 37.4 Intake and Output for Last 24 Hours 01/22/19 01/23/19 01/24/19 23:59 23:59 23:59 Intake Total 1080 / 1080 600 / 600 400 / 400 Output Total 1100 / 1100 1500 / 1500 200 / 200 Balance -20 / -20 -900 / -900 200 / 200 Medical Necessity - Tobacco Use Smoking Status: Never smoker Assessment/Plan All Active Problems (Last Reviewed 01/21/19 @ 12:44 by Marquita Mcallister) Debility (Acute) Pleural effusion (Acute) Small bowel obstruction (Resolved) The patient is a 78 year old M with PMH of HTN, RA, A. fib (on Xarelto), H/O small bowel obstruction, mechanical fall with impacted nondisplaced subcapital fracture of left hip S/P closed reduction with pinning of left hip by Dr. Zhu on 12/10/2018 now admitted to [facility] on 01/11/2019 with debility S/P conversion of previous hip surgery to total hip replacement by Dr. Zhu on 01/09/2019, for greater than 3 hours therapy daily with the aim of returning back home at or near his prior level of functional independence. Patient had a fall in November 2017 following which he had left hip pinning done and was in the rehab following that, later discharged to [place] at that time, but later patient was not able to put weight and had continued pain,so due to his failed left hip pinning, he underwent elective total left hip replacement as noted above. He lives with his , uses cane and a Rollator to ambulate, denies any frequent falls, does drive and does not need any assistance for his ADLs. He lives in a ranch house, and has 2-3 steps going into the house. Per patient he has a history of RA and is on methotrexate 2.5 mg 8 tablets once weekly for the same. At present patient denies any new onset of headache, dizziness, visual disturbances, speech disturbances, new onset focal motor weakness or sensory loss. He had some SOB this morning for which he had Cxray the report of which was reported to show moderate Pleural effusion, loculated. Plan ?PT for gait stability and balance ?OT for ADLs ?Analgesics as needed ?Bowel protocol ?Total left left replacement, by Dr. Zhu on 01/09/2019?per surgery recommendation weightbearing as tolerated. Further management of left hip replacement per orthopedic surgery recommendation. Further postsurgical management of left hip replacement per orthopedic surgery recommendation. [place] removed today 01/24/2019. Per nursing incision looks good without any drainage. ?HTN?Coreg, Lasix, and losartan -Pleural effusion-on Lasix. Chest ultrasound 01/14/19- small moderate size left pleural effusion with occasional internal septations. Will try to obtain pulmonology consult. Hospitalist following. May need cardiothoracic surgery consult. Repeat Chest ultrasound on 01/21/19 per hospitalist recommendations ?A. fib?on amiodarone and Xarelto 20 mg once daily. Xarelto on hold for 3days per pulmonology for thoracentesis per pulmonary recommendation. Pulmonology does not want patient to be on aspirin either prior to thoracentesis. Per pulmonology can resume Xarelto the day after thoracentesis. ?RA?on methotrexate 2.5 mg p.o. 8 tablets once a week, on folic acid and on Plaquenil 200 mg p.o. twice daily ?GI/DVT prophylaxis?on Pantoprazole and Xarelto 20 mg p.o. once daily, Xarelto on hold for thoracentesis. On SCDs and Sharan wraps. ?Fall precautions ?Further medical management per hospitalist recommendation. Hospitalist consult ?Follow-up with PCP, Pulmonology, Cardiothoracic surgery and orthopedic surgeon as an outpatient following discharge.
--- NOTE | 2019-01-24 10:38 | PN.NEURO_ITS ---
Subjective: No issues overnight. Care discussed with the nursing staff. After the team meeting today. All questions were answered. Patient was seen by air pumper Dr. Daniels in the outpatient office. Plan is to have thoracentesis on Monday following discharge. Patient Xarelto held for 3 days for thoracentesis as per pulmonology recommendations. Per pulmonology they do not want him to be on baby aspirin either prior to thoracentesis. Per pulmonology Dr. Daniels okay to resume Xarelto the day after thoracentesis. To resume Xarelto on Monday, . Patient will be discharged home tomorrow 01/25/2019 - Physical Exam General: Alert HEENT: Normocephalic Neck: Supple Lungs: Normal air movement Cardiovascular: Normal S1, Normal S2 Abdomen: Bowel Sounds Present Extremities: No cyanosis Neurological: Cranial nerves II-XII grossly intact, Deep Tendon Reflexes 2+/4 and Symmetrical, Neuro grossly intact, Motor Exam 5/5 strength throughout, Muscle tone normal, Sensory exam intact to light touch and pain, Coordination normal Psych/Mental Status: Normal Affect Vital Signs Temp Pulse Resp BP Pulse Ox 97.6 F L 68 16 126/46 H 91 01/24/19 08:12 01/24/19 08:12 01/24/19 08:12 01/24/19 08:12 01/24/19 08:12 Oxygen Flow Rate (L/min) 2 Oxygen Delivery Method Room Air Weight: 129.9 kg Body Mass Index (BMI) 37.4 Intake and Output for Last 24 Hours 01/22/19 01/23/19 01/24/19 23:59 23:59 23:59 Intake Total 1080 / 1080 600 / 600 400 / 400 Output Total 1100 / 1100 1500 / 1500 200 / 200 Balance -20 / -20 -900 / -900 200 / 200 Medical Necessity - Tobacco Use Smoking Status: Never smoker Assessment/Plan All Active Problems (Last Reviewed 01/21/19 @ 12:44 by Marquita Mcallister) Debility (Acute) Pleural effusion (Acute) Small bowel obstruction (Resolved) The patient is a 78 year old M with PMH of HTN, RA, A. fib (on Xarelto), H/O small bowel obstruction, mechanical fall with impacted nondisplaced subcapital fracture of left hip S/P closed reduction with pinning of left hip by Dr. Zhu on 12/10/2018 now admitted to [facility] on 01/11/2019 with debility S/P conversion of previous hip surgery to total hip replacement by Dr. Zhu on 01/09/2019, for greater than 3 hours therapy daily with the aim of returning back home at or near his prior level of functional independence. Patient had a fall in November 14 following which he had left hip pinning done and was in the rehab following that, later discharged to [place] at that time, but later patient was not able to put weight and had continued pain,so due to his failed left hip pinning, he underwent elective total left hip replacement as noted above. He lives with his , uses cane and a Rollator to ambulate, denies any frequent falls, does drive and does not need any assistance for his ADLs. He lives in a ranch house, and has 2-3 steps going into the house. Per patient he has a history of RA and is on methotrexate 2.5 mg 8 tablets once weekly for the same. At present patient denies any new onset of headache, dizziness, visual disturbances, speech disturbances, new onset focal motor weakness or sensory loss. He had some SOB this morning for which he had Cxray the report of which was reported to show moderate Pleural effusion, loculated. Plan ?PT for gait stability and balance ?OT for ADLs ?Analgesics as needed ?Bowel protocol ?Total left left replacement, by Dr. Zhu on 01/09/2019?per surgery recommendation weightbearing as tolerated. Further management of left hip replacement per orthopedic surgery recommendation. Further postsurgical management of left hip replacement per orthopedic surgery recommendation. [place] removed today 01/24/2019. Per nursing incision looks good without any drainage. ?HTN?Coreg, Lasix, and losartan -Pleural effusion-on Lasix. Chest ultrasound 01/14/19- small moderate size left pleural effusion with occasional internal septations. Will try to obtain pulmonology consult. Hospitalist following. May need cardiothoracic surgery consult. Repeat Chest ultrasound on 01/21/19 per hospitalist recommendations ?A. fib?on amiodarone and Xarelto 20 mg once daily. Xarelto on hold for 3days per pulmonology for thoracentesis per pulmonary recommendation. Pulmonology does not want patient to be on aspirin either prior to thoracentesis. Per pulmonology can resume Xarelto the day after thoracentesis. ?RA?on methotrexate 2.5 mg p.o. 8 tablets once a week, on folic acid and on Plaquenil 200 mg p.o. twice daily ?GI/DVT prophylaxis?on Pantoprazole and Xarelto 20 mg p.o. once daily, Xarelto o n hold for thoracentesis. On SCDs and Sharan wraps. ?Fall precautions ?Further medical management per hospitalist recommendation. Hospitalist consult ?Follow-up with PCP, Pulmonology, Cardiothoracic surgery and orthopedic surgeon as an outpatient following discharge.
--- NOTE | 2019-01-24 10:49 | DCINST_ITS ---
- Discharge Diagnoses Current Active Problems: Debility post total hip replacement. You will use the following diet at home:: Regular Discharge Activity: May Not Drive, May not drive while taking narcotic pain medications. Weight Bearing Status: Weight bearing as tolerated Call your doctor if your incision/area has: Continuous Slow Oozing, Sudden Increased Bleeding, Increased Pain/ Swelling, Increased Redness, Foul Smelling Discharge, Swelling at the incision site Call your doctor if you observe: Fever of 101 or Higher, Coldness, Increased Pain, Numbness or Tingling, Change in Color, Inability to urinate, Inability to have a bowel movement, Using more than one pad per hour, Shortness of breath, Dizziness, Fainting spells, Swelling in the ankles, Chest pain, Prolonged hiccoughing, Increased palpitations (irregular heartbeat), Calf discomfort, Uncontrolled pain Cleanse incision/area with: Do not get Incision Wet, Keep Dressing Clean & Dry Allergies/Adverse Reactions: Allergies Penicillins Allergy (Severe, Verified 01/08/19 09:31) rash Medications to take at Discharge Folic Acid 1 mg PO DAILY 11/07/18 Hydroxychloroquine [Plaquenil] 200 mg PO BID 11/07/18 Methotrexate 8 tab PO MO 11/07/18 Amiodarone HCl [Cordarone] 200 mg PO DAILY 12/13/18 Carvedilol [Coreg (Beta Tressa)] 25 mg PO BID 12/13/18 Cholecalciferol (VIT D3) [Vitamin D3] 2,000 unit PO DAILY@0800 12/13/18 Rivaroxaban [Xarelto] 20 mg PO DAILY 12/13/18 Pantoprazole Sodium [Protonix] 40 mg PO DAILY 01/08/19 Calcium Carbonate [Tums] 500 mg PO BIDCM tablet 01/18/19 Furosemide [Lasix] 40 mg PO 1000,1800 tablet 01/18/19 Losartan Potassium [Cozaar] 100 mg PO DAILY tablet 01/18/19 Primary Care Physician: Cely Kang,Out of [Primary Care Provider] - Please follow up with your Primary Care Physician in: Follow up with PCP in 1-2 weeks Test Results: Test results from this visit will be discussed in further detail at your follow- up appointment, if applicable. When: F/U with Cardiothoracic surgery for loculated Pleural effusion in 1-2 wks When: Follow up with Pulmonology in 1-2 weeks Please Follow Up With: Dr. Herminio Zhu When: Follow up with Orthopedic surgery in 1-2 weeks
--- NOTE | 2019-01-24 10:52 | CASEMGMT ---
Team meeting held. Patient present as well as patient spouse. Patient to discharge to home with spouse on 01/25/19. Physical therapy recommending for patient to have outpatient physical therapy at time of discharge. Patient is agreeable to recommendation and requesting for outpatient physical therapy to be set up [facility] Therapy Services (P: [phone]; F: [phone]). Patient reporting to have a walker already set up within the home. Patient spouse plans to provide transportation home for patient at time of discharge. Support given. Telephone call to [facility] Therapy, voicemail left. Order faxed. [facility] to contact patient or this social services designee to set up appointment. Proposed discharge date: 01/25/19 PLAN: Discharge to home with spouse and outpatient physical therapy. Danielle AUSTIN, SABRINA
--- NOTE | 2019-01-24 11:56 | CASEMGMT ---
Social Work Telephone call from [facility] Therapy services. Outpatient physical therapy appointment set up for 01/29/19 @ 10:30am. Appointment reminder provided to patient. Patient agreeable to appointment time and date. Proposed discharge date: 01/29/19 PLAN: Discharge to home with spouse and outpatient physical therapy services. Danielle AUSTIN, SABRINA
[2019-01-25] MEDS: LORazepam 0.5 MG Tablet PO (00:02)
[2019-01-25 06:17] VITALS: PULSE 67; RESP 20; O2SAT 91
[2019-01-25] MEDS: Ipratropium 0.5 MG/2.5 ML SOLUTION INHALATION ×2 (06:17→10:43)
[2019-01-25 06:34] LABS: ALB/GLOB Ratio 0.8 RATIO (0.9-2.4); Globulin 3.3 g/dL (2.2-4.2); LDH 222 U/L (87-241); Protein, Total 5.8 g/dL (6.4-8.2)
[2019-01-25] MEDS: Acetaminophen 325 MG Tablet 650 MG PO (07:01)
[2019-01-25 08:12] VITALS: BP 160/89; PULSE 82; RESP 20; TEMP 36.4; O2SAT 92
[2019-01-25] MEDS: Losartan Potassium 100 MG Tablet PO (09:00)
[2019-01-25] MEDS: Furosemide 40 MG Tablet PO (09:00)
[2019-01-25] MEDS: Carvedilol 25 MG Tablet PO (09:01)
[2019-01-25] MEDS: Folic Acid 1 MG Tablet PO (09:01)
[2019-01-25] MEDS: Amiodarone 200 MG Tablet PO (09:01)
[2019-01-25] MEDS: Senna/Docusate Sodium 1 Tablet 2 TABLET PO (09:01)
[2019-01-25] MEDS: Calcium Carbonate 500 MG Tablet PO (09:01)
[2019-01-25] MEDS: Hydroxychloroquine 200 MG Tablet PO (09:02)
[2019-01-25] MEDS: Pantoprazole Sodium 40 MG Tablet PO (09:02)
[2019-01-25] MEDS: oxyCODONE 5 MG Tablet PO ×2 (09:06→13:26)
[2019-01-25 10:43] VITALS: PULSE 74; RESP 23
[2019-01-25 13:00] VITALS: BP 160/89; PULSE 82; RESP 20; TEMP 36.4; O2SAT 92
--- NOTE | 2019-01-25 13:30 | NURSING ---
and patient aware of discharge instructions.
--- NOTE | 2019-01-25 15:00 | NURSING ---
Dr. Zhu office nurse aware of incision site at discharge, no redness, drainage, and no signs of infection.
== END 2019-01-25 14:05 | disposition home or self-care (01) | DRG 560 ==
PROVIDERS: Internal Medicine; Internal Medicine Critical Care Medicine; Admitting Provider Psychiatry & Neurology Neurology; Referring Provider Psychiatry & Neurology Neurology; Visit Provider Internal Medicine
DX: S72.012D Unspecified intracapsular fracture of left femur, subsequent encounter for closed fracture with routine healing (principal); Z96.642 Presence of left artificial hip joint; J90 Pleural effusion, not elsewhere classified; W19.XXXD Unspecified fall, subsequent encounter; I10 Essential (primary) hypertension; I48.0 Paroxysmal atrial fibrillation; D63.8 Anemia in other chronic diseases classified elsewhere; M06.9 Rheumatoid arthritis, unspecified; N40.0 Benign prostatic hyperplasia without lower urinary tract symptoms; E66.01 Morbid (severe) obesity due to excess calories; Z68.37 Body mass index [BMI] 37.0-37.9, adult; Z71.3 Dietary counseling and surveillance; Z79.01 Long term (current) use of anticoagulants
CPT/HCPCS: 36415; 76604; 80048; 80053; 83615; 84156; 85025; 94640; 97110; 97116; 97161; 97166; 97530; 97535; A4216; J1940; J8610

== ENCOUNTER → 2019-01-25 13:36 | Outpatient (CLI) | payer MEDICARE, BC, SELFPAY ==
[2019-01-21 12:47] VITALS: BMI 36.7
--- NOTE | 2019-01-25 | FLU_PTH ---
PATIENT: FARRAH LOZA LOC: U#:[id number] AGE/SX: 85/M ROOM: RE01/25/[address]: Dr. Mickey Daniels MD : 1940 BED: DIS: SPEC #: [id number] RECD: 01/25/19 15:47 STATUS: GLO TRINIDAD #: [id number] BENI: 01/25/19 00:[address]: Mickey Daniels DEPT: CYTOLOGY RECD BY: Jennifer Arriola ENTERED: 01/28/19 09:05 SP TYPE: Fluid OTHR DR: Out of Town Doctor Tissues: THORACIC FLUID Procedures: Special Stain Group II Surgery Specimen Level IV Cytospin Fluid HEADER OPERATION: Ultrasound guided left thoracentesis PRE-OP DIAGNOSIS: Pleural effusion TISSUE SUBMITTED: Thoracentesis fluid for cytology DIAGNOSIS CYTOLOGY Thoracentesis fluid for cytology (cytospin and cell block): Negative for malignant cells. Bloody specimen. SJ:meghann 01/29/19 CYTOLOGY STUDY Slides are reviewed. CYTOLOGY GROSS Received is 60 ml of cloudy dark red fluid labeled with the patient's name and and designated per the requisition as thoracentesis. Submitted for cytology preparation including cell block. 01/28/19 TC:5 CPT: 91827, 41138
--- NOTE | 2019-01-25 13:40 | US_ITS ---
PROCEDURE: ULTRASOUND GUIDED THORACENTESIS. DATE: January 25, 2019. INDICATION: Male, 78 years old. Left pleural effusion PHYSICIAN: Donaldo Wyatt M.D. PROCEDURE: The risks, benefits, and alternatives to the procedure were explained to the patient. The specific risks of bleeding, infection, and pneumothorax requiring chest tube insertion were discussed and accepted. Written informed consent was obtained. Ultrasonographic evaluation of the left lower pleural space was carried out. An adequate pocket was identified. The patient was placed in the sitting, upright position. The overlying skin was prepped and draped in sterile fashion. 1% lidocaine was administered subcutaneously for local anesthesia. Under ultrasound guidance, a 5 Tristanian thoracentesis needle/catheter system was advanced into the left posterior lower pleural fluid collection. Approximately 710 mL of bloody fluid was drained. The catheter was removed, and a sterile dressing was applied. A specimen was collected and sent to the laboratory for analysis, as requested by the referring clinician. The patient tolerated the procedure well. A chest x-ray was ordered. US/Thoracentesis W US IMPRESSION: Ultrasound-guided left thoracentesis. Electronically Signed: Donaldo Wyatt, at 15:47 EDT , Service support ,
--- NOTE | 2019-01-25 14:30 | RAD_ITS ---
STUDY: X-RAY CHEST REASON FOR EXAM: Male, 78 years old. Status post left thoracentesis. TECHNIQUE: AP inspiration and expiration views. COMPARISON: Comparison is made with prior chest radiograph dated August 13, 2019. FINDINGS: The patient is status post left thoracentesis. Residual pleural-parenchymal changes persist. There is no evidence of pneumothorax. RAD/Chest Insp/Exp 2 View IMPRESSION: Status post left thoracentesis. There is no evidence of pneumothorax. Electronically Signed: Donaldo Wyatt, at 15:29 EDT , Service support ,
[2019-01-25 14:37] LABS: International Normalized Ratio 1.2; Prothrombin Time (Protime)PT. 15.1 SECONDS (11.7-14.9)
[2019-01-25 15:45] VITALS: BP 120/67; BP 122/69; BP 125/70; BP 141/83; PULSE 75; PULSE 78; PULSE 79; RESP 18; O2SAT 94; O2SAT 95; O2SAT 96
[2019-01-25 15:48] LABS: Cytology, Body Fluid / CSF SEE PATHOLOGY REPORT
[2019-01-25 16:24] LABS: Body Fluid Mononuclear WBC # 0.182 10^3/uL; Body Fluid Mononuclear WBC % 61.3 %; Body Fluid Polynuclear WBC # 0.115 10^3/uL; Body Fluid Polynuclear WBC % 38.7 %; Body Fluid Total Cells Counted 0.311 10^3/ul; White Blood Count/Body Fluid 0.297 10^3/uL
[2019-01-25 16:54] LABS: Glucose, Body Fluid 81 mg/dL (40-70); LDH,Body Fluid 614 Units/l (Not Establ.); Protein, Body Fluid 3.7 g/dL (Not Establ.)
[2019-01-25 17:20] LABS: Appearance/Body Fluid SL CLDY; Auto B Fluid Analyzer BKGD Ct COUNTS W/IN LIMITS (W/IN LIMITS); Color/Body Fluid RED; Source- Body Fluid THORACENTESIS
[2019-01-25 17:21] LABS: Lymphocytes 22 %; Macrophages 6 %; Monocytes 20 %; Neutrophil (Segs) 48 %; Other Cell Type/BF 4 %
[2019-01-25 17:22] LABS: Body Fluid QC Type(s) BF3Q
[2019-01-28 11:49] LABS: Pathologist Comment/Body Fluid Reviewed
== END ==
PROVIDERS: Referring Provider Internal Medicine Critical Care Medicine; Visit Provider Internal Medicine Critical Care Medicine
DX: J90 Pleural effusion, not elsewhere classified (principal)
CPT/HCPCS: 32555; 71046; 82945; 83615; 84157; 85610; 85730; 87070; 87075; 87205; 88108; 88305; 88313; 89050

== ENCOUNTER → 2019-01-31 09:45 | Outpatient (CLI) | payer MEDICARE, BC, SELFPAY ==
[2019-01-21 12:47] VITALS: BMI 36.7
--- NOTE | 2019-01-31 09:47 | RAD_ITS ---
STUDY: X-RAY CHEST REASON FOR EXAM: Male, 78 years old. Shortness of breath, pleural effusion TECHNIQUE: PA and lateral views of the chest. COMPARISON: 01/25/2019 FINDINGS: Lungs are expanded. Right lung remains clear. There is stable left pleural effusion with likely associated atelectasis or infiltrate. No interval change since the previous study. Normal size heart. Normal mediastinum and spring. Normal visualized pulmonary arteries. There is atherosclerotic calcification of the aortic arch with tortuosity. Normal visualized thoracic spine. Normal visualized ribs, clavicles, and shoulders. There is no demonstrated abnormality of the visualized soft tissue structures of the upper abdomen. RAD/Chest PA and Lateral IMPRESSION: No interval change Electronically Signed: Martín Sandra MD at 17:23 EDT , Service support ,
== END ==
PROVIDERS: Referring Provider Internal Medicine Critical Care Medicine; Visit Provider Internal Medicine Critical Care Medicine
DX: J90 Pleural effusion, not elsewhere classified (principal)
CPT/HCPCS: 71046

== ENCOUNTER → 2019-02-07 16:34 | Outpatient (CLI) | payer MEDICARE, BC, SELFPAY ==
[2019-01-21 12:47] VITALS: BMI 36.7
--- NOTE | 2019-02-07 16:37 | CT_ITS ---
STUDY: CT CHEST WITHOUT CONTRAST REASON FOR EXAM: Male, 78 years old. Pleural effusion rib injury RADIATION DOSAGE (If Supplied By Facility): CTDIvol = ( 20.11 ) mGy, DLP = ( 673.29 ) mGycm TECHNIQUE: Transaxial imaging was performed without the administration of intravenous contrast material. Individualized dose optimization techniques were used for this CT. COMPARISON: Chest x-ray January 31, 2019 and CTA chest November 11, 2018 FINDINGS: The lungs are normal. Moderate left pleural effusion. Normal heart and pericardium. Calcific coronary artery disease. Normal mediastinum. Normal hilar regions. Normal unenhanced pulmonary arteries. Normal aorta arch and descending thoracic aorta. Ankylosis spinous processes. There is no demonstrated abnormality of the visualized upper abdomen. CT/Chest without Contrast IMPRESSION: Moderate left effusion. Differential considerations include hemothorax, infectious, inflammatory, and neoplastic etiologies. Electronically Signed: Domenico Jang MD at 17:32 EDT , Service support ,
== END ==
PROVIDERS: Referring Provider Thoracic Surgery (Cardiothoracic Vascular Surgery); Visit Provider Thoracic Surgery (Cardiothoracic Vascular Surgery)
DX: J90 Pleural effusion, not elsewhere classified (principal)
CPT/HCPCS: 71250

== ENCOUNTER → 2019-02-25 12:01 | Outpatient (CLI) | payer MEDICARE, BC, SELFPAY ==
[2019-01-21 12:47] VITALS: BMI 36.7
--- NOTE | 2019-02-25 12:18 | RAD_ITS ---
STUDY: X-RAY CHEST REASON FOR EXAM: Male, 78 years old. Post thoracotomy pleural rectum E TECHNIQUE: PA and lateral views of the chest. COMPARISON: 01/31/2019 chest x-ray FINDINGS: There is prior study there is reduction in the thickening of the left pleura. There is a minimal amount of left pleural density and/or peripheral parenchymal thickening. There is lesser opacity in the left lower lobe. There is a pattern of mild increased interstitial markings minimal groundglass opacity. There is borderline cardiomegaly. Normal mediastinum and spring. Normal visualized pulmonary arteries. Normal visualized aortic arch and descending thoracic aorta. There are diffuse degenerative changes of the visualized thoracic spine. Normal visualized ribs, clavicles, and shoulders. There is no demonstrated abnormality of the visualized soft tissue structures of the upper abdomen. RAD/Chest PA and Lateral IMPRESSION: Postoperative reduction of the loculated effusion. Lower lobe atelectasis and/or fibrotic change. Recommend close interval follow-up study. Electronically Signed: Klarissa Banda MD at 19:00 EDT Tel , Service support ,
== END ==
DX: Z98.890 Other specified postprocedural states (principal)
CPT/HCPCS: 71046

== ENCOUNTER → 2019-06-18 08:37 | Outpatient (CLI) | payer MEDICARE, BC, SELFPAY ==
[2019-01-21 12:47] VITALS: BMI 36.7
[2019-03-11 08:30] VITALS: BMI 36.7
--- NOTE | 2019-06-18 13:00 | PFTCOMP ---
COMPLETE PULMONARY FUNCTION TEST INTERPRETATION Brief HPI: Patient is a 78 year old male, currently under the care of myself, who presents to [facility] for complete pulmonary function tests secondary to diagnosis of pleural effusions. Respiratory therapist reports good effort and reproducible results. Interpretation: Forced expiration spirometry shows no large airways obstructive ventilatory defect with an FEV1 of 67% predicted. There is no significant bronchodilator response by strict ATS criteria. Spirograms are of good quality and plateau normally. The respiratory flow volume loop shows a normal pattern. Lung volumes by body plethysmography show a decreased total lung capacity at 5.45 L, 74% predicted. All other lung volumes are reduced symmetrically. Diffusion capacity by carbon monoxide is decreased at 61% predicted. The airway resistance is elevated. No previous pulmonary function tests were available for review. Impression: Moderate restrictive ventilatory defect with a symmetric reduction in diffusing capacity.
== END ==
PROVIDERS: Family Provider Family Medicine; PCP Family Medicine; Referring Provider Internal Medicine Critical Care Medicine; Visit Provider Internal Medicine Critical Care Medicine
DX: R06.00 Dyspnea, unspecified (principal)
CPT/HCPCS: 94060; 94726; 94729

== ENCOUNTER → 2019-06-21 08:35 | Outpatient (CLI) | payer MEDICARE, BC, SELFPAY ==
[2019-01-21 12:47] VITALS: BMI 36.7
[2019-03-11 08:30] VITALS: BMI 36.7
[2019-06-21 09:48] VITALS: PULSE 67; PULSE 72; PULSE 74; PULSE 76; PULSE 78; PULSE 80; PULSE 82; PULSE 95; O2SAT 93; O2SAT 94; O2SAT 95; O2SAT 96
--- NOTE | 2019-06-21 12:31 | PCM.PSN.6M ---
PSN 6 Minute Walk Test - 6 Minute Walk Test 6 Minute Walk Test: 6 Minute Walk Test PSN:6-Minute Walk Test Start: 06/21/19 09:46 Freq: Status: Active Protocol: RESP.6MINW Document 06/21/19 09:48 KEKE (Rec: 06/21/19 09:50 KEKE [id number]) 6 Minute Walk Test Date Performed 06/21/19 Time Performed 09:00 Height 6 ft Weight: 131.542 kg Weight in Pounds 290.[address]: Mickey Daniels Assistive device used: Walker Pre-test Oxygen Delivery Method Room Air Pulse Ox (%) 96 Pulse Rate (60-100 beats/min) 67 Dyspnea Ga Scale (0-10) 0 Exertion Ga Scale (6-20) 6 1st minute Oxygen Delivery Method Room Air Pulse Ox (%) 94 Pulse Rate (60-100 beats/min) 74 2nd minute Oxygen Delivery Method Room Air Pulse Ox (%) 93 Pulse Rate (60-100 beats/min) 82 Number of Rests Taken 1 3rd minute Oxygen Delivery Method Room Air Pulse Ox (%) 94 Pulse Rate (60-100 beats/min) 78 4th minute Oxygen Delivery Method Room Air Pulse Ox (%) 95 Pulse Rate (60-100 beats/min) 76 5th minute Oxygen Delivery Method Room Air Pulse Ox (%) 95 Pulse Rate (60-100 beats/min) 80 6th minute Oxygen Delivery Method Room Air Pulse Ox (%) 96 Pulse Rate (60-100 beats/min) 95 Dyspnea Ga Scale (0-10) 3 Exertion Ga Scale (6-20) 14 Post-test Oxygen Delivery Method Room Air Pulse Ox (%) 95 Pulse Rate (60-100 beats/min) 72 Full Laps Walked 8 Partial Lap, Number of Tiles Walked 10 Total Distance Walked (ft) 482 - Interpretation Interpretation: The patient was able to ambulate 482 feet over the course of 6 minutes on room air with the assistance of a walker and one break. The patient did experience significant desaturation as low as 93%, but no tachycardia. These findings are consistent with a musculoskeletal limitation exercise tolerance. - Recommendations Recommendations: No supplemental oxygen is indicated at this time. However, sensitivity is limited given minimal distance traveled
== END ==
PROVIDERS: Family Provider Family Medicine; PCP Family Medicine; Referring Provider Internal Medicine Critical Care Medicine; Visit Provider Internal Medicine Critical Care Medicine
DX: R06.00 Dyspnea, unspecified (principal)
CPT/HCPCS: 94618

== ENCOUNTER → 2019-12-18 06:38 | Outpatient (CLI) | payer MEDICARE, BC, SELFPAY ==
[2019-06-26 08:41] VITALS: BMI 40.1
--- NOTE | 2019-12-18 13:45 | PFTCOMP ---
COMPLETE PULMONARY FUNCTION TEST INTERPRETATION Brief HPI: Patient is a 79 year old male, currently under the care of myself, who presents to [facility] for complete pulmonary function tests secondary to diagnosis of pleural effusion. Respiratory therapist reports good effort and reproducible results. Interpretation: Forced expiration spirometry shows no large airways obstructive ventilatory defect with an FEV1 of 59% predicted. There is no significant bronchodilator response by strict ATS criteria. Spirograms are of good quality and plateau slowly, indicating slowly emptying areas of the lungs. The respiratory flow volume loop shows decreased expiratory flow rates at high lung volumes consistent with small airways obstruction. Lung volumes by body plethysmography show a decreased total lung capacity at 5.31 L, 75% predicted. All other lung volumes are reduced symmetrically. Diffusion capacity by carbon monoxide is decreased at 68% predicted. The airway resistance is slightly elevated. Compared to previous pulmonary function tests from 06/18/2019, there has been no significant change. Impression: Mild restrictive ventilatory defect with a symmetric reduction diffusing capacity and no significant change compared to 2019.
== END ==
PROVIDERS: Family Provider Family Medicine; PCP Family Medicine; Referring Provider Internal Medicine Critical Care Medicine; Visit Provider Internal Medicine Critical Care Medicine
DX: M06.9 Rheumatoid arthritis, unspecified (principal); J98.4 Other disorders of lung; Z98.890 Other specified postprocedural states
CPT/HCPCS: 94060; 94726; 94729

== ENCOUNTER → 2020-12-23 07:00 | Outpatient (CLI) | payer MEDICARE, BC, SELFPAY ==
[2020-09-30 07:37] VITALS: BMI 40.6
--- NOTE | 2020-12-24 09:25 | PFT ---
INTRODUCTION: The patient is an 80-year-old male that presents for pulmonary function studies secondary to a diagnosis of disorder of the lung. Respiratory therapy reported that the patient was unable to get into the plethysmography box. Bronchodilators were used during testing. INTERPRETATION: Forced expiration spirometry demonstrates the presence of a moderately severe large airways obstructive ventilatory defect. There was no significant response to aerosolized bronchodilators, based upon strict ATS criteria. Spirograms are of good quality and plateau normally. Lung volumes were unable to be obtained. Diffusing capacity by single breath CO is reduced at 56% of predicted. IMPRESSION: Irreversible moderately severe large airways obstructive ventilatory defect with symmetric reduction in diffusing capacity. Lung volumes were unable to be obtained. When compared to prior PFTs from December 2019, there has been a 19% reduction in FEV1 and diffusing capacity.
== END ==
PROVIDERS: PCP Family Medicine; Referring Provider Internal Medicine Critical Care Medicine; Visit Provider Internal Medicine Critical Care Medicine
DX: J98.4 Other disorders of lung (principal); M06.9 Rheumatoid arthritis, unspecified
CPT/HCPCS: 94060; 94726; 94729

== ENCOUNTER 2021-01-07 09:53 | Outpatient (RCR) | payer MEDICARE, BC, SELFPAY | END 2021-01-07 23:59 | LOC: IMMUN 09:53 | PROVIDERS: PCP Family Medicine; Visit Provider Family Medicine | DX: Z23 Encounter for immunization (principal) | CPT/HCPCS: 0011A; 0012A; 91301 ==

== ENCOUNTER 2021-09-21 16:27 | Emergency (ER) | payer MEDICARE, BC, SELFPAY ==
[2021-09-21 16:29] VITALS: BP 130/72; PULSE 68; RESP 18; TEMP 36.7; O2SAT 99; BMI 38.6
--- NOTE | 2021-09-21 16:53 | CT_ITS ---
STUDY: CT BRAIN WITHOUT CONTRAST REASON FOR EXAM: Male, 81 years old. Fall on thinners RADIATION DOSAGE (If Supplied By Facility): CTDIvol = ( 44.99 ) mGy, DLP = ( 897.35 ) mGycm TECHNIQUE: Transaxial CT imaging of the brain was performed without administration of intravenous contrast material. Individualized dose optimization techniques were used for this CT. COMPARISON: No relevant priors. FINDINGS: Normal soft tissue structures. Normal calvarium. Normal size ventricles and extra-axial spaces for the patient''s age. Normal white matter tracts of the cerebral hemispheres. Normal basal ganglia and thalami. Normal brainstem. Normal cerebellum. There is no intracranial hemorrhage. There are no findings of an acute ischemic infarction. Significant extensive mucosal thickening of the visualized paranasal sinuses. CT/Brain/Head without Contrast IMPRESSION: No acute intracranial pathology of the brain. Extensive severe pansinusitis. Electronically Signed: Russell Reyes DO at 17:53 EST Tel [phone], Service support ,
--- NOTE | 2021-09-21 16:53 | RAD_ITS ---
STUDY: X-RAY - PELVIS REASON FOR EXAM: Male, 81 years old. Fall TECHNIQUE: One view of the pelvis was obtained. COMPARISON: None. FINDINGS: There is a non-specific bowel gas pattern. Normal visualized soft tissue structures. Lower lumbar degenerative changes. Normal bilateral iliac wings, sacroiliac joints and visualized sacrum. Possible lucency at the left inferior pubic ramus near the tubercle. Normal pubic symphysis. Normal ischial tuberosities. Bilateral high prosthesis are in place. RAD/Pelvis 1 or 2 Views IMPRESSION: Possible lucency at the left inferior pubic ramus near the tubercle. Electronically Signed: Russell Reyes DO at 18:25 EST Tel [phone], Service support ,
[2021-09-21] MEDS: HYDROmorphone 1 MG/ML Syringe IV ×3 (17:07→22:45)
--- NOTE | 2021-09-21 17:30 | RAD_ITS ---
STUDY: X-RAY - LUMBAR SPINE REASON FOR EXAM: Male, 81 years old. Pain TECHNIQUE: 2 view(s) of the lumbar spine were obtained. COMPARISON: None FINDINGS: Normal lumbar lordosis. There is no substantial scoliosis. There is a normal alignment of the vertebrae. Degenerative changes of the vertebral bodies with spurring at the endplates. Narrowed disc space heights. Bilateral hip prosthesis are in place. RAD/Lumbar Spine 2 or 3 Views IMPRESSION: Degenerative changes of the lumbar spine. Electronically Signed: Russell Reyes DO at 18:22 EST Tel [phone], Service support ,
--- NOTE | 2021-09-21 17:35 | EKG12_ITS ---
Test Reason : Blood Pressure : / mmHG Vent. Rate : 072 BPM Atrial Rate : 072 BPM P-R Int : 158 ms QRS Dur : 114 ms QT Int : 418 ms P-R-T Axes : 021 000 074 degrees QTc Int : 457 ms Normal sinus rhythm Incomplete left bundle branch block Borderline ECG Confirmed by CLAUDIA SHIPMAN, LETITIA ([id number]), associate entertainment editor RENATA HANDY ([id number]) on 09/23/2021 8:52:32 AM Referred By: CARYL Confirmed By:LETITIA TAYLOR MD
--- NOTE | 2021-09-21 17:35 | RAD_ITS ---
STUDY: X-RAY - RIGHT FEMUR REASON FOR STUDY: Male, 81 years old. Pain TECHNIQUE: 4 view(s) of the femur. COMPARISON: None. FINDINGS: There is an oblique comminuted fracture at the distal shaft of the femur. Right hip prosthesis is in place. Degenerative changes at the knee. Vascular calcifications. Calcification at the level of the suprapatellar bursa. RAD/Femur Min 2 Views IMPRESSION: Comminuted distal shaft fracture of the femur. Electronically Signed: Russell Reyes DO at 18:19 EST Tel [phone], Service support ,
--- NOTE | 2021-09-21 17:35 | RAD_ITS ---
STUDY: X-RAY CHEST REASON FOR EXAM: Male, 81 years old. Fall TECHNIQUE: Frontal view COMPARISON: None. FINDINGS: Elevated right hemidiaphragm. Basilar atelectasis. Left apical pleural thickening. Normal size heart. Normal mediastinum and spring. Normal visualized pulmonary arteries. Normal visualized aortic arch and descending thoracic aorta. Degenerative changes of the thoracic spine. Degenerative changes at the shoulders. There is no demonstrated abnormality of the visualized soft tissue structures of the upper abdomen. RAD/Chest 1 View (Portable) IMPRESSION: Elevated right hemidiaphragm. Basilar atelectasis. Left apical pleural thickening. Electronically Signed: Russell Reyes DO at 18:21 EST Tel [phone], Service support ,
[2021-09-21 18:33] VITALS: PULSE 71; RESP 18; O2SAT 95
[2021-09-21 18:36] LABS: Absolute Lymphocyte Count 0.84 X10^3/uL (0.83-4.51); Absolute Neutrophil Count 14.2 X10^3/uL (2.0-7.7); Basophil# 0.03 X10^3/uL; Basophil% 0.2 % (0-1); Eosinophil# 0.02 X10^3/uL; Eosinophils% 0.1 % (0-5); Hematocrit 31.7 % (40-54); Hemoglobin 10.1 g/dL (13.0-16.5); Lymphocyte # 0.84 X10^3/ul (0.83-4.51); Lymphocyte % 5.2 % (19-41); Mean Corp Hgb Conc 31.9 g/dL (32-36); Mean Corpuscular Hgb 33.8 pg (27.0-32.0); Mean Platelet Vol. 9.7 fl (6.2-12.0); Monocyte# 0.94 X10^3/uL; Monocyte% 5.8 % (0-10); NRBC Flagged by Analyzer 0 % (0-5); Neutrophil # 14.21 X10^3/uL (2.7-7.7); Platelet Count 277 K/mm3 (150-450); RBC Distribution Width CV 13.8 % (11.6-14.6); RBC Distribution Width SD 53.1 fl (35.1-43.9); Red Blood Count 2.99 M/mm3 (4.6-6.2); White Blood Count 16.2 K/mm3 (4.4-11.0)
[2021-09-21 18:46] LABS: International Normalized Ratio 1.6; Partial Thromboplast Time 36.9 Seconds (24.1-36.2); Prothrombin Time (Protime)PT. 18.1 SECONDS (11.7-14.9)
[2021-09-21 19:16] LABS: Anion Gap 1 (5-15); BUN 20 mg/dL (7-18); BUN/Creat Ratio 14.4 RATIO (10-20); Calcium,Total 8.6 mg/dL (8.5-10.1); Chloride 101 mmol/L (98-107); Creatinine, Serum 1.39 mg/dL (0.70-1.30); EST Glomerular Filtration Rate 52 mL/min (>60); Est Glom Filt Rate - Afr Amer 63 mL/min (>60); Estimated Creatinine Clearance 45.75 ml/min; Glucose 151 mg/dL (74-106); Potassium 4.9 mmol/L (3.5-5.1); Sodium Level 136 mmol/L (136-145)
[2021-09-21 20:10] LABS: Bacteria 0 SEEN /hpf (None Seen); Mucous, Urine 0 SEEN /hpf (<or=2+); Red Blood Cells-Urine 0 SEEN /hpf (0-5); Squamous Epithelial Cells - UA 0 SEEN /hpf (0-5); White Blood Cells 0 SEEN /hpf (0-5)
[2021-09-21 20:17] LABS: Color, Urine Yellow (Yellow); Glucose, Dipstick Normal (Normal); Ketone-Dipstick 5 mg/dl (Negative); Leukocyte Esterase-Dipstick Negative /ul (Negative); Nitrite-Dipstick Negative (Negative); Occult Blood-Urine Negative /ul (Negative); Protein-Dipstick 15 mg/dl (Negative); Specific Gravity, Urine 1.025 (1.002-1.030); Urine Clarity Clear (Clear); Urine Urobilinogen 4 mg/dl (Normal)
[2021-09-21 20:27] VITALS: PULSE 74; RESP 16; TEMP 36.4; O2SAT 97
[2021-09-21 20:27] LABS: Urine Bilirubin Dipstick 1 mg/dL (Negative)
[2021-09-21 20:33] VITALS: BP 118/61
--- NOTE | 2021-09-21 20:43 | ED.RN ---
Nazario had given the zofran and patient did not have nausea after that dose and declined to have the zofran. With Dr approval, we held on to the order in case needed but not need. Patient is aware covid is negative and states if dos not work out with [facility], will consider [facility].
[2021-09-21 21:32] VITALS: BP 139/93; PULSE 62; RESP 17; O2SAT 97
--- NOTE | 2021-09-21 21:48 | EX.ED.DYSGE1 ---
HPI History of Present Illness Chief Complaint: Fall Narrative Narrative: Patient is an 81-year-old male with past medical history of generalized weakness as well as bilateral hip replacements. He states today he was walking through his house when his weakness caused him to lose his balance and fall. He denies striking his head or any loss of consciousness but does report long-term use of anticoagulation. He states he was only on the ground for about 30 minutes but was able to call EMS and did this because of his inability to get up and ambulate from the fall with pain to the right hip/leg [facility] Medical History COPD (chronic obstructive pulmonary disease) HTN (hypertension) Rheumatoid arthritis Home Medications folic acid 1 mg PO DAILY 11/07/18 [History Last Taken 11/06/18] hydroxychloroquine 200 mg PO BID 11/07/18 [History Last Taken Unknown] methotrexate sodium 8 tab PO MO 11/07/18 [History Last Taken 12/03/18] cholecalciferol (vitamin D3) 2,000 unit PO DAILY@0800 12/13/18 [History Last Taken Unknown] pantoprazole 40 mg PO DAILY 01/08/19 [History Last Taken 01/09/19 05:00] calcium carbonate 500 mg PO BIDCM tab 01/18/19 [Rx Last Taken Unknown] oxycodone 5 - 10 mg PO Q4H PRN PRN 01/25/19 [History Last Taken Unknown] ferrous sulfate 325 mg (65 mg iron) tablet,delayed release 325 mg PO DAILY tab 03/11/19 [History Last Taken Unknown] furosemide 40 mg tablet 20 mg PO DAILY tab 12/25/19 [History Last Taken Unknown] azelastine 205.5 mcg (0.15 %) nasal spray 1 spray INTRANASAL BID #3 units 09/30/20 [Rx Last Taken Unknown] fluticasone propionate 50 mcg/actuation nasal spray,suspension 1 spray INTRANASAL BID #3 device 09/30/20 [Rx Last Taken Unknown] rivaroxaban 20 mg tablet See Rx Instructions .ROUTE .COMPLEX #90 tab 11/19/20 [Rx Last Taken Unknown] amiodarone 200 mg tablet See Rx Instructions .ROUTE .COMPLEX #90 tablet 02/09/21 [Rx Last Taken Unknown] carvedilol 25 mg tablet 25 mg PO BID #180 tab 05/26/21 [Rx Last Taken Unknown] duloxetine 30 mg capsule,delayed release 30 mg PO QHS cap 05/26/21 [History Last Taken Unknown] losartan 100 mg tablet 25 mg PO DAILY tab 05/26/21 [History Last Taken Unknown] Allergy/AdvReac Type Severity Reaction Status Date / Time Penicillins Allergy Severe rash Verified 09/21/21 16:32 Family History Mother Pancreatic cancer Father Heart problem Sister Breast cancer Surgical History History of bowel resection (11/08/18) History of carpal tunnel release of both wrists History of cholecystectomy History of right hip replacement History of rotator cuff surgery Status post trigger finger release Status post wrist surgery Social History Smoking Status: Never smoker alcohol intake: never caffeine: Yes Type: coffee Number of servings: 1 ROS ROS ED Constitutional Constitutional ED: Denies chills or fever(s) ENT ENT ED: Denies sore throat Cardiovascular Cardiovascular: Denies chest pain Respiratory/Chest Respiratory/Chest: Denies cough or dyspnea Gastrointestinal Gastrointestinal: Denies abdominal pain, diarrhea, nausea or vomiting Genitourinary Genitourinary ED: Denies dysuria Musculoskeletal Musculoskeletal: Reports other Details: Positive right hip/leg pain ; Denies back pain or myalgias Integumentary Denies Abrasions or rash Neurologic Neurologic: Denies headache(s) Hematologic/Lymphatic Hematologic/Lymphatic: Reports easy bleeding and easy bruising EXAM Physical Exam Const Vital Signs: 09/21/21 16:29 09/21/21 16:32 09/21/21 18:33 Temperature 98.1 F Temperature Source Oral Pulse Rate 68 71 Respiratory Rate 18 18 Respiratory Effort Normal Non-Labored Blood Pressure 130/72 H Blood Pressure Mean 91 Pulse Ox 99 95 Oxygen Delivery Method Nasal Cannula Nasal Cannula Oxygen Flow Rate (L/min) 3 3 09/21/21 20:27 09/21/21 20:33 09/21/21 21:32 Temperature 97.5 F L Temperature Source Temporal Pulse Rate 74 62 Respiratory Rate 16 17 Respiratory Effort Blood Pressure 118/61 139/93 H Blood Pressure Mean 80 108 Pulse Ox 97 97 Oxygen Delivery Method Room Air Oxygen Flow Rate (L/min) Positive well nourished, well developed and obese General Appearance ED: well developed Nutritional Appearance: obese HEENT HEENT Narrative: No signs of depressed or basilar skull fracture Eyes PERRL and EOMs intact bilaterally Neck supple Neck Narrative: No bony deformity or step-off of the cervical spine no midline pain with palpation Chest Wall palpation of chest normal Resp normal respiratory effort and clear to auscultation bilaterally Cardio regular rate and regular rhythm GI normal to inspection, nondistended, normoactive bowel sounds, non-tender, non-distended and no masses Auscultation: normoactive bowel sounds Palpation: soft Extremity Extremity Narrative: Pelvis is stable but there is slight shortening and external rotation of the right lower leg compared to the left. There is pain with palpation near the greater trochanter on the right as well as the midshaft of the femur. No obvious abrasions or ecchymosis noted. No pain with palpation over top the inguinal region. Active and passive range of motion of the right leg is severely limited secondary to pain. Neuro oriented x3 and CN's II-XII intact bilaterally Sensorium / Orientation: alert Psych mental status grossly normal Skin no rashes or lesions noted MDM MDM MDM Narrative Medical decision making narrative: Patient presented after mechanical fall so I felt no need for cardiac or syncope work-up. However as he is on a blood thinner elected to perform a CT of his head as well as images of the areas that were painful. Head CT was negative for acute trauma but his pelvis/hip x-ray did show a periprosthetic right distal femur fracture. The patient has seen orthopedics at our facility and therefore I contacted the provider. He states that this is too complex of her fracture to be kept in our facility and recommends transfer. The patient and family were informed of this and wished to go to [facility] as he has had his right hip replaced there about 10 to 15 years ago. Therefore [facility] was contacted and does agree to accept the patient at this time. Lab Data Attestation: I reviewed the patient's lab results. Labs: Laboratory Results - last 24 hr 09/21/21 09/21/21 09/21/21 18:27 18:27 18:27 WBC 16.2 H RBC 2.99 L Hgb 10.1 L Hct 31.7 L MCV 106.0 H MCH 33.8 H MCHC 31.9 L RDW Std Deviation 53.1 H RDW Coeff of Deandre 13.8 Plt Count 277 MPV 9.7 Immature Gran % (Auto) 0.700 Neut % (Auto) 88.0 H Lymph % (Auto) 5.2 L Kerr % (Auto) 5.8 Eos % (Auto) 0.1 Baso % (Auto) 0.2 Absolute Neuts (auto) 14.2 H Absolute Lymphs (auto) 0.84 Nucleated RBC % 0 PT 18.1 H INR 1.6 APTT 36.9 H Sodium 136 Potassium 4.9 Chloride 101 Carbon Dioxide 34.0 H Anion Gap 1 L BUN 20 H Creatinine 1.39 H Estim Creat Clear Calc 45.75 Est GFR (MDRD) Af Amer 63 Est GFR (MDRD) Non-Af 52 L BUN/Creatinine Ratio 14.4 Glucose 151 H Calcium 8.6 Urine Color Urine Clarity Urine pH Ur Specific [place] Urine Protein Urine Glucose (UA) Urine Ketones Urine Occult Blood Urine Nitrite Urine Bilirubin Urine Urobilinogen Ur Leukocyte Esterase Urine RBC Urine WBC Ur Squamous Epith Cells Urine Bacteria Urine Mucus Blood Type Antibody Screen 09/21/21 09/21/21 18:27 20:05 WBC RBC Hgb Hct MCV MCH MCHC RDW Std Deviation RDW Coeff of Deandre Plt Count MPV Immature Gran % (Auto) Neut % (Auto) Lymph % (Auto) Kerr % (Auto) Eos % (Auto) Baso % (Auto) Absolute Neuts (auto) Absolute Lymphs (auto) Nucleated RBC % PT INR APTT Sodium Potassium Chloride Carbon Dioxide Anion Gap BUN Creatinine Estim Creat Clear Calc Est GFR (MDRD) Af Amer Est GFR (MDRD) Non-Af BUN/Creatinine Ratio Glucose Calcium Urine Color Yellow Urine Clarity Clear Urine pH 5.0 Ur Specific [place] 1.025 Urine Protein 15 H Urine Glucose (UA) Normal Urine Ketones 5 H Urine Occult Blood Negative Urine Nitrite Negative Urine Bilirubin 1 H Urine Urobilinogen 4 H Ur Leukocyte Esterase Negative Urine RBC 0 SEEN Urine WBC 0 SEEN Ur Squamous Epith Cells 0 SEEN Urine Bacteria 0 SEEN Urine Mucus 0 SEEN Blood Type A NEGATIVE Antibody Screen NEGATIVE Radiography Diagnostic Testing: Clinical Impression(s) from Imaging Studies Brain CT 09/21/21 16:53 IMPRESSION: No acute intracranial pathology of the brain. Extensive severe pansinusitis. Electronically Signed: Russell Reyes DO at 17:53 EST Tel [phone], Service support , Pelvis X-Ray 09/21/21 16:53 IMPRESSION: Possible lucency at the left inferior pubic ramus near the tubercle. Electronically Signed: Russell Reyes DO at 18:25 EST Tel [phone], Service support , Lumbar Spine X-Ray 09/21/21 17:30 IMPRESSION: Degenerative changes of the lumbar spine. Electronically Signed: Russell Reyes DO at 18:22 EST Tel [phone], Service support , Chest X-Ray 09/21/21 17:35 IMPRESSION: Elevated right hemidiaphragm. Basilar atelectasis. Left apical pleural thickening. Electronically Signed: Russell Reyes DO at 18:21 EST Tel [phone], Service support , Femur X-Ray 09/21/21 17:35 IMPRESSION: Comminuted distal shaft fracture of the femur. Electronically Signed: Russell Reyes DO at 18:19 EST Tel [phone], Service support , Discharge Plan Triage Chief Complaint: Fall ED Provider: Soham Hawley Dx/Rx/DC Orders Clinical Impression: Closed fracture of distal end of right femur, Accidental fall, Current use of residential anticoagulation Prescriptions: No Action ferrous sulfate 325 mg (65 mg iron) tablet,delayed release (DR/EC) 325 mg PO DAILY RF: 0 furosemide [Lasix] 40 mg tablet 20 mg PO DAILY RF: 0 fluticasone propionate 50 mcg/actuation spray,suspension 1 spray INTRANASAL BID Qty: 3 RF: 3 azelastine 0.15 % (205.5 mcg) spray,non-aerosol 1 spray INTRANASAL BID Qty: 3 RF: 3 losartan 100 mg tablet 25 mg PO DAILY RF: 0 duloxetine [Cymbalta] 30 mg capsule,delayed release(DR/EC) 30 mg PO QHS RF: 0 carvedilol 25 mg tablet 25 mg PO BID Qty: 180 RF: 0 methotrexate sodium 2.5 MG tablet 8 tab PO MO RF: 0 folic acid 1 MG tablet 1 mg PO DAILY RF: 0 hydroxychloroquine 200 MG tablet 200 mg PO BID RF: 0 cholecalciferol (vitamin D3) 1,000 UNIT tablet 2,000 unit PO DAILY@0800 RF: 0 pantoprazole 40 MG tablet 40 mg PO DAILY RF: 0 calcium carbonate 500 MG tablet 500 mg PO BIDCM RF: 0 oxycodone 5 MG tablet 5 - 10 mg PO Q4H PRN PRN (Reason: Pain) RF: 0 rivaroxaban [Xarelto] 20 mg tablet See Rx Instructions .ROUTE .COMPLEX Qty: 90 RF: 3 amiodarone 200 mg tablet See Rx Instructions .ROUTE .COMPLEX Qty: 90 RF: 3 Primary Care Provider: Semaj Concepcion Referrals: Semaj Concepcion MD [Primary Care Provider] - Disposition Disposition: Acute Care Hospital Discharge Location: [facility]
--- NOTE | 2021-09-21 22:04 | ED.RN ---
Sheyla lundberg [facility], charge nurse, called with report
[2021-09-21 22:06] VITALS: BP 126/76; PULSE 80; RESP 19; TEMP 36.8; O2SAT 97
[2021-09-22 00:21] VITALS: BP 104/68
[2021-09-22 02:20] VITALS: BP 106/66; PULSE 74; RESP 17
[2021-09-22] MEDS: HYDROmorphone 1 MG/ML Syringe IV (02:34)
== END 2021-09-22 02:20 | disposition short-term general hospital (02) ==
PROVIDERS: Emergency Provider Emergency Medicine; PCP Family Medicine
DX: S72.351A Displaced comminuted fracture of shaft of right femur, initial encounter for closed fracture (principal); W01.0XXA Fall on same level from slipping, tripping and stumbling without subsequent striking against object, initial encounter; Y93.01 Activity, walking, marching and hiking; Z79.01 Long term (current) use of anticoagulants; I44.7 Left bundle-branch block, unspecified; I10 Essential (primary) hypertension; J44.9 Chronic obstructive pulmonary disease, unspecified; M06.9 Rheumatoid arthritis, unspecified; M47.816 Spondylosis without myelopathy or radiculopathy, lumbar region; J32.4 Chronic pansinusitis; Z96.643 Presence of artificial hip joint, bilateral
CPT/HCPCS: 70450; 71045; 72100; 72170; 73552; 80048; 81001; 85025; 85610; 85730; 86850; 86900; 86901; 87426; 93005; 96374; 96376; 99283; A4216; J2405

== ENCOUNTER 2021-11-06 14:21 | Inpatient (IN) | payer MEDICARE, BC, SELFPAY ==
[2021-11-06 14:22] VITALS: BP 127/78; PULSE 69; RESP 18; TEMP 37; O2SAT 93; BMI 39.2
--- NOTE | 2021-11-06 15:21 | EX.ED.DYSGE1 ---
HPI History of Present Illness Chief Complaint: Other, Pain/Inj Informant: patient Narrative Narrative: Elderly patient currently in rehab after having ORIF right spiral femur fracture currently nonweightbearing in rehab used to live on his own with his , presenting on [place] for multiple complaints. He has had pain and swelling in his left eye without any vision changes for the past 2 to 3 days, and he is having some occasional minor discharge. He has had pain on the roof of his mouth for the past 3 to 4 weeks, and he has been using nystatin for the past 2-3, swish and swallow, he does not feel like it is helping. Finally, he states he is having anal pain for the past 4 or 5 days at least, or at least it has been bad for that long, and he states I am told it is hemorrhoids, but I do not know he states he has had anal fissure in the past, he denies having any bleeding, states it just hurts and it is painful to go. He has been feeling weak ever since he was in the hospital for his leg fracture, apparently he did that about 2 weeks ago or so. He denies any fevers, lightheadedness or syncope, chest pain, shortness of breath, coughing, focal weakness. States he is on Xarelto for history of paroxysmal atrial fibrillation. [facility] Medical History Atrial fibrillation COPD (chronic obstructive pulmonary disease) HTN (hypertension) Paroxysmal A-fib Restrictive lung disease Rheumatoid arthritis Small bowel obstruction Home Medications folic acid 1 mg PO DAILY 11/07/18 [History Last Taken 11/06/18] hydroxychloroquine 200 mg PO BID 11/07/18 [History Last Taken Unknown] methotrexate sodium 8 tab PO MO 11/07/18 [History Last Taken 12/03/18] cholecalciferol (vitamin D3) 2,000 unit PO DAILY@0800 12/13/18 [History Last Taken Unknown] pantoprazole 40 mg PO DAILY 01/08/19 [History Last Taken 01/09/19 05:00] calcium carbonate 500 mg PO BIDCM tab 01/18/19 [Rx Last Taken Unknown] oxycodone 5 - 10 mg PO Q4H PRN PRN 01/25/19 [History Last Taken Unknown] ferrous sulfate 325 mg (65 mg iron) tablet,delayed release 325 mg PO DAILY tab 03/11/19 [History Last Taken Unknown] furosemide 40 mg tablet 20 mg PO DAILY tab 12/25/19 [History Last Taken Unknown] azelastine 205.5 mcg (0.15 %) nasal spray 1 spray INTRANASAL BID #3 units 09/30/20 [Rx Last Taken Unknown] fluticasone propionate 50 mcg/actuation nasal spray,suspension 1 spray INTRANASAL BID #3 device 09/30/20 [Rx Last Taken Unknown] rivaroxaban 20 mg tablet See Rx Instructions .ROUTE .COMPLEX #90 tab 11/19/20 [Rx Last Taken Unknown] amiodarone 200 mg tablet See Rx Instructions .ROUTE .COMPLEX #90 tablet 02/09/21 [Rx Last Taken Unknown] duloxetine 30 mg capsule,delayed release 30 mg PO QHS cap 05/26/21 [History Last Taken Unknown] carvedilol 12.5 mg PO BID 09/21/21 [History Last Taken Unknown] losartan 25 mg PO DAILY 09/21/21 [History Last Taken Unknown] Allergy/AdvReac Type Severity Reaction Status Date / Time Penicillins Allergy Severe rash Verified 09/21/21 16:32 Family History (Reviewed 09/15/21 @ 09:39 by Hazel Yee PATIENT SUPPORT ASSISTANT, PATIENT SUPPORT ASSISTANT-C) Mother Pancreatic cancer Father Heart problem Sister Breast cancer Surgical History History of bowel resection (11/08/18) History of carpal tunnel release of both wrists History of cholecystectomy History of right hip replacement History of rotator cuff surgery Status post trigger finger release Status post wrist surgery Social History Smoking Status: Never smoker alcohol intake: never caffeine: Yes Type: coffee Number of servings: 1 ROS ROS ED Constitutional Constitutional ED: Reports weakness; Denies anorexia, body ache(s), chills or fever(s) Eyes Eyes: Reports as per HPI, discharge from eye(s), eye pain and other Details: Left eye pain laterally according to patient. No foreign body sensation. ; Denies change in vision, diplopia, loss of peripheral vision, loss of vision or photophobia ENT ENT ED: Reports as per HPI, discharge from eye(s) and mouth pain; Denies dental pain, loss taste/smell, rhinorrhea or sore throat Cardiovascular Cardiovascular: Denies chest pain or palpitations Respiratory/Chest Respiratory/Chest: Denies cough or dyspnea Gastrointestinal Gastrointestinal: Reports as per HPI and diarrhea; Denies abdominal pain, hematemesis, hematochezia, nausea or vomiting Genitourinary Genitourinary ED: Reports other Details: Perianal/rectal pain ; Denies dysuria, hematuria, scrotal pain or scrotal swelling Musculoskeletal Musculoskeletal: Denies back pain or neck pain Integumentary Denies abscess or rash Neurologic Neurologic: Denies headache(s), paresthesias or weakness Psychiatric Psychiatric: Denies anxiety or suicidal thoughts EXAM Physical Exam Const Vital Signs: 11/06/21 14:22 11/06/21 15:48 11/06/21 16:26 Temperature 98.6 F Temperature Source Temporal Pulse Rate 69 78 Respiratory Rate 18 18 Respiratory Effort Respiratory Pattern Blood Pressure 127/78 H 131/73 H Blood Pressure Mean 94 92 Pulse Ox 93 95 Oxygen Delivery Method Nasal Cannula Nasal Cannula Nasal Cannula Oxygen Flow Rate (L/min) 3 2 2 11/06/21 17:49 Temperature Temperature Source Pulse Rate Respiratory Rate Respiratory Effort Normal Non-Labored Respiratory Pattern Normal Blood Pressure Blood Pressure Mean Pulse Ox Oxygen Delivery Method Oxygen Flow Rate (L/min) Positive well nourished and well developed General Appearance ED: well developed and NAD Nutritional Appearance: morbidly obese HEENT HEENT Narrative: Dry oral mucous membranes, the soft palate appears to be erythematous, somewhat excoriated, there is no discharge, rash or lesion or petechia. The oromucosa is otherwise normal including an area anteriorly on oromucosa in front of where tooth #6 and 7 would be, the patient is edentulous with normal gingiva, where I see nothing that would explain pain. No erythema, injection, lesion, or aphthous ulcer. It is nontender. His lips are otherwise normal as well. No trismus. Normal tongue, normal submandibular exam. normocephalic and atraumatic Eyes PERRL and EOMs intact bilaterally Eyes Narrative: There is focal ecchymosis appearing swelling in the lateral conjunctiva/sclera of the left eye along with very mild appearance of palpebral conjunctival injection but no significant bulbar conjunctival injection, and there is associated mild swelling of the lower eyelid without tenderness or external erythema, no proptosis or enophthalmos. No significant pain with extraocular movements. On gross inspection the cornea appears normal, deep, quiet without hyphema or hypopyon. Neck full ROM and supple Resp normal respiratory effort and clear to auscultation bilaterally Cardio regular rate, regular rhythm and no murmurs GI non-tender and non-distended Auscultation: normoactive bowel sounds Palpation: soft Rectal Exam: other Other Details: Patient's perioral area and diaper are completely covered in nonbloody foul-smelling melanotic stool. After getting him cleaned up, there is a single nonbleeding nonthrombosed tender external hemorrhoid at approximately the 3 o'clock position. No palpable abscess or other areas of tenderness. Normal tone. Back/Spine no CVA tenderness General Back: other FROM Extremity normal to inspection General Extremety ED: Negative for edema, pulses abnormal or tenderness General Extremity: Negative for edema or pulses abnormal Neuro oriented x3, CN's II-XII intact bilaterally and no sensory deficits noted Sensorium / Orientation: awake and alert Motor Exam: strength 5/5 throughout Skin no rashes or lesions noted and no wounds MDM MDM MDM Narrative Medical decision making narrative: Patient is on iron in addition to Xarelto. There is no gross blood seen in stool, however it is strongly Hemoccult positive. Therefore he was given pantoprazole 80 mg IV bolus in addition to a drip. Will need to be admitted. Right now his hemodynamics are stable, his vital signs are normal, and his hemoglobin is 8.5 so he does not require transfusion at this time but I did send him for a type and screen. Suspicion for upper GI bleed etiology. He has no pain or abdominal tenderness, so CT not indicated at this time, and since he has no nausea or vomiting, no need for NG tube at this time either. His soft palate appears to be dry and excoriated, the etiology of the pain there is not clear. With regards to his left eye, could be conjunctivitis, however with the focal nature of the chemosis at the lateral aspect of the left eye, episcleritis and scleritis are also in the differential, so prior to treating with steroids, antibiotics, or both I would defer to ophthalmology which can happen as an outpatient. With regards to gastroenterology, Dr. Ann is signed out today but will be available tomorrow morning. Discussed with hospitalist and Dr. Urbano with surgery, who will cover for GI hemorrhage emergency if needed. Lab Data Attestation: I reviewed the patient's lab results. Labs: Laboratory Results - last 24 hr 11/06/21 11/06/21 11/06/21 16:00 16:00 16:00 WBC 6.3 RBC 2.68 L Hgb 8.5 L Hct 28.3 L MCV 105.6 H MCH 31.7 MCHC 30.0 L RDW Std Deviation 64.9 H RDW Coeff of Deandre 17.0 H Plt Count 426 MPV 9.1 Immature Gran % (Auto) 1.900 H Neut % (Auto) 74.7 H Lymph % (Auto) 14.7 L [place] % (Auto) 7.0 Eos % (Auto) 1.1 Baso % (Auto) 0.6 Absolute Neuts (auto) 4.7 Absolute Lymphs (auto) 0.93 Nucleated RBC % 0 Sodium 136 Potassium 4.0 Chloride 93 L Carbon Dioxide 39.0 H Anion Gap 4 L BUN 20 H Creatinine 1.08 Estim Creat Clear Calc 58.88 Est GFR (MDRD) Af Amer 84 Est GFR (MDRD) Non-Af 70 BUN/Creatinine Ratio 18.5 Glucose 104 Calcium 9.0 Blood Type A NEGATIVE Antibody Screen NEGATIVE Discharge Plan Dx/Rx/DC Orders Clinical Impression: Acute blood loss anemia, Acute upper GI bleeding, Anticoagulated, Acute left eye pain, Acute pain of mouth, External hemorrhoid Disposition Disposition: [facility]
[2021-11-06 15:48] VITALS: BP 131/73; PULSE 78; RESP 18; O2SAT 95
[2021-11-06 16:11] LABS: Absolute Lymphocyte Count 0.93 X10^3/uL (0.83-4.51); Absolute Neutrophil Count 4.7 X10^3/uL (2.0-7.7); Basophil# 0.04 X10^3/uL; Basophil% 0.6 % (0-1); Eosinophil# 0.07 X10^3/uL; Eosinophils% 1.1 % (0-5); Hematocrit 28.3 % (40-54); Hemoglobin 8.5 g/dL (13.0-16.5); Lymphocyte # 0.93 X10^3/ul (0.83-4.51); Lymphocyte % 14.7 % (19-41); Mean Corpuscular Hgb 31.7 pg (27.0-32.0); Mean Corpuscular Volume 105.6 fL (80-94); Mean Platelet Vol. 9.1 fl (6.2-12.0); Monocyte# 0.44 X10^3/uL; NRBC Flagged by Analyzer 0 % (0-5); Neutrophil # 4.71 X10^3/uL (2.7-7.7); Neutrophil % 74.7 % (47-70); Platelet Count 426 K/mm3 (150-450); RBC Distribution Width SD 64.9 fl (35.1-43.9); Red Blood Count 2.68 M/mm3 (4.6-6.2); White Blood Count 6.3 K/mm3 (4.4-11.0)
[2021-11-06 16:31] LABS: Anion Gap 4 (5-15); BUN 20 mg/dL (7-18); BUN/Creat Ratio 18.5 RATIO (10-20); Chloride 93 mmol/L (98-107); Creatinine, Serum 1.08 mg/dL (0.70-1.30); EST Glomerular Filtration Rate 70 mL/min (>60); Est Glom Filt Rate - Afr Amer 84 mL/min (>60); Estimated Creatinine Clearance 58.88 ml/min; Glucose 104 mg/dL (74-106); Sodium Level 136 mmol/L (136-145)
--- NOTE | 2021-11-06 16:45 | NURSING ---
pt with chills and temp 103.1. now. dr. byers aware and ok still for dc as long as pt ok. explained that needed ibuprofen when got home and that may need to alternate tylenol and ibuprofen for fevers. dc instructions given
[2021-11-06] MEDS: Morphine 2 MG/ML Syringe IV (16:52)
[2021-11-06 17:50] VITALS: BP 138/73; PULSE 69; RESP 16; TEMP 36.9; O2SAT 94
--- NOTE | 2021-11-06 18:23 | PCM.HP.STD ---
HPI - General General Date of Admission: 11/06/21 HPI Narrative FARRAH LOZA, is a 81 M who presents with a myriad of complaints was found to have melena. Hemoglobin was noted to be 8.5 and that was down from 10.1 today. Patient was unaware of having any melena. Dr. Navarro, of general surgery, was notified as GI is currently off today in case any events were to happen overnight or 5 that he would be able to assist in case things were Significantly worse. Plan is for the patient to be evaluated by gastroenterology starting on the patient is on rivaroxaban for atrial fibrillation. He denies any abdominal pain. [facility] Medical History Atrial fibrillation COPD (chronic obstructive pulmonary disease) HTN (hypertension) Paroxysmal A-fib Restrictive lung disease Rheumatoid arthritis Small bowel obstruction Home Medications folic acid 1 mg PO DAILY 11/07/18 [History Last Taken 11/06/18] hydroxychloroquine 200 mg PO BID 11/07/18 [History Last Taken Unknown] methotrexate sodium 8 tab PO MO 11/07/18 [History Last Taken 12/03/18] cholecalciferol (vitamin D3) 2,000 unit PO DAILY@0800 12/13/18 [History Last Taken Unknown] pantoprazole 40 mg PO DAILY 01/08/19 [History Last Taken 01/09/19 05:00] calcium carbonate 500 mg PO BIDCM tab 01/18/19 [Rx Last Taken Unknown] oxycodone 5 - 10 mg PO Q4H PRN PRN 01/25/19 [History Last Taken Unknown] ferrous sulfate 325 mg (65 mg iron) tablet,delayed release 325 mg PO DAILY tab 03/11/19 [History Last Taken Unknown] furosemide 40 mg tablet 20 mg PO DAILY tab 12/25/19 [History Last Taken Unknown] azelastine 205.5 mcg (0.15 %) nasal spray 1 spray INTRANASAL BID #3 units 09/30/20 [Rx Last Taken Unknown] fluticasone propionate 50 mcg/actuation nasal spray,suspension 1 spray INTRANASAL BID #3 device 09/30/20 [Rx Last Taken Unknown] rivaroxaban 20 mg tablet See Rx Instructions .ROUTE .COMPLEX #90 tab 11/19/20 [Rx Last Taken Unknown] amiodarone 200 mg tablet See Rx Instructions .ROUTE .COMPLEX #90 tablet 02/09/21 [Rx Last Taken Unknown] duloxetine 30 mg capsule,delayed release 30 mg PO QHS cap 05/26/21 [History Last Taken Unknown] carvedilol 12.5 mg PO BID 09/21/21 [History Last Taken Unknown] losartan 25 mg PO DAILY 09/21/21 [History Last Taken Unknown] Allergy/AdvReac Type Severity Reaction Status Date / Time Penicillins Allergy Severe rash Verified 09/21/21 16:32 Family History Mother Pancreatic cancer Father Heart problem Sister Breast cancer Surgical History History of bowel resection (11/08/18) History of carpal tunnel release of both wrists History of cholecystectomy History of right hip replacement History of rotator cuff surgery Status post trigger finger release Status post wrist surgery Social History Smoking Status: Never smoker alcohol intake: never caffeine: Yes Type: coffee Number of servings: 1 ROS ROS Narrative Sore mouth. General malaise and did complain of rectal pain. All review of systems were negative except as mentioned above in the history of present illness and the other review of systems. Vital Signs Vital Signs Vital Signs: 11/06/21 14:22 11/06/21 15:48 11/06/21 16:26 Temperature 37.0 C Temperature Source Temporal Pulse Rate 69 78 Respiratory Rate 18 18 Respiratory Effort Respiratory Pattern Blood Pressure 127/78 H 131/73 H Blood Pressure Mean 94 92 Pulse Ox 93 95 Oxygen Delivery Method Nasal Cannula Nasal Cannula Nasal Cannula Oxygen Flow Rate (L/min) 3 2 2 11/06/21 17:49 11/06/21 17:50 Temperature 36.9 C Temperature Source Temporal Pulse Rate 69 Respiratory Rate 16 Respiratory Effort Normal Non-Labored Respiratory Pattern Normal Blood Pressure 138/73 H Blood Pressure Mean 94 Pulse Ox 94 Oxygen Delivery Method Nasal Cannula Oxygen Flow Rate (L/min) 2 Weight Weight: 131.4 kg Body Mass Index (BMI) 39.2 Physical Exam Const alert HEENT normocephalic, head/scalp atraumatic and hearing grossly normal bilaterally Resp normal respiratory effort, no retractions, no use of accessory muscles and clear to auscultation bilaterally Cardio regular rate, regular rhythm, S1 normal heart sound and S2 normal heart sound GI normal to inspection, nondistended, normoactive bowel sounds, soft to palpation, non-tender and non-distended Extremity normal to inspection Skin no rashes or lesions noted Neuro Sensorium / Orientation: alert Results Lab / Micro Data Result Diagrams: 11/06/21 16:00 11/06/21 16:00 Labs: Laboratory Results - last 24 hr 11/06/21 16:00: WBC 6.3, RBC 2.68 L, Hgb 8.5 L, Hct 28.3 L, MCV 105.6 H, MCH 31.7, MCHC 30.0 L, RDW Std Deviation 64.9 H, RDW Coeff of Deandre 17.0 H, Plt Count 426, MPV 9.1, Immature Gran % (Auto) 1.900 H, Neut % (Auto) 74.7 H, Lymph % (Auto) 14.7 L, [place] % (Auto) 7.0, Eos % (Auto) 1.1, Baso % (Auto) 0.6, Absolute Neuts (auto) 4.7, Absolute Lymphs (auto) 0.93, Nucleated RBC % 0 11/06/21 16:00: Sodium 136, Potassium 4.0, Chloride 93 L, Carbon Dioxide 39.0 H, Anion Gap 4 L, BUN 20 H, Creatinine 1.08, Estim Creat Clear Calc 58.88, Est GFR (MDRD) Af Amer 84, Est GFR (MDRD) Non-Af 70, BUN/Creatinine Ratio 18.5, Glucose 104, Calcium 9.0 11/06/21 16:00: Blood Type A NEGATIVE, Antibody Screen NEGATIVE Micro: Microbiology 11/06/21 16:00 Stool Stool Occult Blood (ANUSHA) - Final Occult Blood Positive Assessment & Plan Assessment/Plan (1) Acute blood loss anemia: (2) Acute upper GI bleeding: PLAN: 1. Acute blood loss anemia Hemoglobin 8.5 Secondary to GI bleed Monitor No indication to transfuse at this time 2. GI bleed Source is unclear if it is upper versus lower but either sources complicated by patient's use of rivaroxaban Rivaroxaban will be held Continue PPI drip GI consult starting the 26. In case any issues overnight that are profoundly severe general surgery may need to be involved. I did explain the case with patient's bleed becomes very profuse and possibly may need to be transferred to tertiary facility for coil embolization he seems rather hemodynamically stable that that would be unlikely 3. Atrial fibrillation Rivaroxaban held Continue with amiodarone 4. Rheumatoid arthritis On methotrexate and Plaquenil 5. VTE prophylaxis with SCDs as chemical prophylaxis contraindicated in light of the hemorrhage 6. CODE STATUS: The patient. He is full code Covid vaccination status: Patient has had his vaccine in the booster. Charges/Coding Visit Charges Inpatient E&M: 71676 Init Hosp L3
[2021-11-06 18:53] VITALS: BMI 33.4
--- NOTE | 2021-11-06 18:53 | PCS.PANDOC ---
PANDEMIC DOCUMENTATION INITIATED: Date: 06/28/2021 Time: 190
[2021-11-06 19:02] VITALS: BP 134/79; PULSE 79; RESP 18; TEMP 36.4; O2SAT 98
[2021-11-06 19:16] VITALS: PULSE 68
[2021-11-06] MEDS: Azelastine HCl NASAL.SRY 1 SPRAY NASAL (21:40)
[2021-11-06] MEDS: NYSTATIN 500,000 UNIT/5 ML UDC 500000 UNIT PO (21:42)
[2021-11-06] MEDS: Fluticasone 0.05% 1 SPRAY NASAL.SRY NASAL (21:42)
[2021-11-06] MEDS: DULoxetine Hcl 30 MG Capsule PO (21:42)
[2021-11-06 21:47] LABS: Hematocrit 27.1 % (40-54); Hemoglobin 8.6 g/dL (13.0-16.5); Mean Corp Hgb Conc 31.7 g/dL (32-36); Mean Corpuscular Hgb 32.5 pg (27.0-32.0); Mean Corpuscular Volume 102.3 fL (80-94); Platelet Count 389 K/mm3 (150-450); RBC Distribution Width SD 62.8 fl (35.1-43.9); Red Blood Count 2.65 M/mm3 (4.6-6.2); White Blood Count 6.8 K/mm3 (4.4-11.0)
[2021-11-06] MEDS: oxyCODONE 5 MG Tablet PO (21:47)
[2021-11-06 21:53] VITALS: BP 144/92; PULSE 71; RESP 18; TEMP 37; O2SAT 95
[2021-11-07] VITALS (9 sets, daily range): BP systolic 103–131; BP diastolic 66–72; PULSE 68–82; RESP 14–18; TEMP 36.7–37.1; O2SAT 93–96
[2021-11-07 07:08] LABS: Absolute Lymphocyte Count 1.06 X10^3/uL (0.83-4.51); Basophil# 0.04 X10^3/uL; Basophil% 0.5 % (0-1); Eosinophil# 0.09 X10^3/uL; Eosinophils% 1.1 % (0-5); Hematocrit 29.5 % (40-54); Hemoglobin 8.8 g/dL (13.0-16.5); Lymphocyte # 1.06 X10^3/ul (0.83-4.51); Lymphocyte % 13.1 % (19-41); Mean Corp Hgb Conc 29.8 g/dL (32-36); Mean Corpuscular Hgb 31.5 pg (27.0-32.0); Mean Corpuscular Volume 105.7 fL (80-94); Mean Platelet Vol. 9.1 fl (6.2-12.0); Monocyte# 0.74 X10^3/uL; Monocyte% 9.1 % (0-10); NRBC Flagged by Analyzer 0 % (0-5); Neutrophil # 6.02 X10^3/uL (2.7-7.7); Neutrophil % 74.2 % (47-70); POSITIVE MORPHOLOGY YES; Platelet Count 423 K/mm3 (150-450); RBC Distribution Width CV 16.9 % (11.6-14.6); RBC Distribution Width SD 65.1 fl (35.1-43.9); Red Blood Count 2.79 M/mm3 (4.6-6.2); White Blood Count 8.1 K/mm3 (4.4-11.0)
[2021-11-07 07:09] LABS: Differential Indicated SCAN CRITERIA MET
[2021-11-07 07:36] LABS: ALB/GLOB Ratio 0.4 RATIO (0.9-2.4); AST(SGOT) 19 U/L (15-37); Alanine Aminotransfer ALT/SGPT 19 U/L (16-61); Albumin, Serum 1.9 g/dL (3.2-5.0); Alkaline Phosphatase 71 U/L (45-117); Anion Gap 7 (5-15); BUN 20 mg/dL (7-18); BUN/Creat Ratio 19.2 RATIO (10-20); Calcium,Total 8.6 mg/dL (8.5-10.1); Chloride 91 mmol/L (98-107); Creatinine, Serum 1.04 mg/dL (0.70-1.30); EST Glomerular Filtration Rate 73 mL/min (>60); Est Glom Filt Rate - Afr Amer 88 mL/min (>60); Estimated Creatinine Clearance 68.39 ml/min; Globulin 4.3 g/dL (2.2-4.2); Glucose 73 mg/dL (74-106); Protein, Total 6.2 g/dL (6.4-8.2); Sodium Level 136 mmol/L (136-145)
--- NOTE | 2021-11-07 07:45 | PN.HOSP_ITS ---
Subjective Subjective Mouth is very sore. Says he cannot open his left eye (then opens his left eye). Objective Data Objective Data Vital Signs: Vital Signs Temp Pulse Resp BP Pulse Ox 36.7 C 80 14 128/67 H 93 11/07/21 03:36 11/07/21 07:00 11/07/21 03:36 11/07/21 03:36 11/07/21 03:36 Oxygen Flow Rate (L/min) 2 Oxygen Delivery Method Nasal Cannula Weight: 124.7 kg Body Mass Index (BMI) 33.4 Intake & Output: Intake and Output for Last 24 Hours 11/05/21 11/06/21 11/07/21 23:59 23:59 23:59 Intake Total 335 / 335 85 / 85 Output Total 250 / 250 300 / 300 Balance 85 / 85 -215 / -215 Lab / Micro Data Result Diagrams: 11/07/21 06:30 11/07/21 06:30 Labs: Laboratory Results - last 24 hr 11/06/21 16:00: WBC 6.3, RBC 2.68 L, Hgb 8.5 L, Hct 28.3 L, MCV 105.6 H, MCH 31.7, MCHC 30.0 L, RDW Std Deviation 64.9 H, RDW Coeff of Deandre 17.0 H, Plt Count 426, MPV 9.1, Immature Gran % (Auto) 1.900 H, Neut % (Auto) 74.7 H, Lymph % (Auto) 14.7 L, [place] % (Auto) 7.0, Eos % (Auto) 1.1, Baso % (Auto) 0.6, Absolute Neuts (auto) 4.7, Absolute Lymphs (auto) 0.93, Nucleated RBC % 0 11/06/21 16:00: Sodium 136, Potassium 4.0, Chloride 93 L, Carbon Dioxide 39.0 H, Anion Gap 4 L, BUN 20 H, Creatinine 1.08, Estim Creat Clear Calc 58.88, Est GFR (MDRD) Af Amer 84, Est GFR (MDRD) Non-Af 70, BUN/Creatinine Ratio 18.5, Glucose 104, Calcium 9.0 11/06/21 16:00: Blood Type A NEGATIVE, Antibody Screen NEGATIVE 11/06/21 21:30: WBC 6.8, RBC 2.65 L, Hgb 8.6 L, Hct 27.1 L, MCV 102.3 H, MCH 32.5 H, MCHC 31.7 L D, RDW Std Deviation 62.8 H, RDW Coeff of Deandre 17.0 H, Plt Count 389, MPV 9.0 11/07/21 06:30: WBC 8.1, RBC 2.79 L, Hgb 8.8 L, Hct 29.5 L, MCV 105.7 H, MCH 31.5, MCHC 29.8 L D, RDW Std Deviation 65.1 H, RDW Coeff of Deandre 16.9 H, Plt Count 423, MPV 9.1, Immature Gran % (Auto) 2.000 H, Neut % (Auto) 74.2 H, Lymph % (Auto) 13.1 L, [place] % (Auto) 9.1, Eos % (Auto) 1.1, Baso % (Auto) 0.5, Absolute Neuts (auto) 6.0, Absolute Lymphs (auto) 1.06, Nucleated RBC % 0 11/07/21 06:30: Sodium 136, Potassium 4.0, Chloride 91 L, Carbon Dioxide 38.0 H, Anion Gap 7, BUN 20 H, Creatinine 1.04, Estim Creat Clear Calc 68.39, Est GFR (MDRD) Af Amer 88, Est GFR (MDRD) Non-Af 73, BUN/Creatinine Ratio 19.2, Glucose 73 L, Calcium 8.6, Total Bilirubin 0.50, AST 19, ALT 19, Alkaline Phosphatase 71, Total Protein 6.2 L, Albumin 1.9 L, Globulin 4.3 H, Albumin/Globulin Ratio 0.4 L Micro: Microbiology 11/06/21 16:00 Stool Stool Occult Blood (ANUSHA) - Final Occult Blood Positive Physical Exam Const alert and no apparent distress HEENT HEENT Narrative: Dry MM. Dried blood now on palate, whereas yesterday it looked irritated. Eyes Eyes Narrative: no matting. no injection. Resp normal respiratory effort, no retractions, no use of accessory muscles and clear to auscultation bilaterally Cardio regular rate, regular rhythm, S1 normal heart sound and S2 normal heart sound GI normal to inspection, nondistended, normoactive bowel sounds, soft to palpation, non-tender and non-distended Assessment & Plan Assessment/Plan (1) Acute blood loss anemia: (2) Acute upper GI bleeding: PLAN: 1. Acute blood loss anemia stable Secondary to GI bleed Monitor No indication to transfuse at this time 2. GI bleed Source is unclear if it is upper versus lower but either sources complicated by patient's use of rivaroxaban Rivaroxaban will be held Continue PPI drip GI consult starting the 26. In case any issues overnight that are profoundly severe general surgery may need to be involved. I did explain the case with patient's bleed becomes very profuse and possibly may need to be transferred to tertiary facility for coil embolization he seems rather hemodynamically stable that that would be unlikely 3. Atrial fibrillation Rivaroxaban held Continue with amiodarone 4. Rheumatoid arthritis On methotrexate and Plaquenil 5. VTE prophylaxis with SCDs as chemical prophylaxis contraindicated in light of the hemorrhage 6. CODE STATUS: 7. Stomatitis no obvious thrush, but was previously treated with nystatin. more irritated today, so I will add lidocaine oral The patient. He is full code Covid vaccination status: Patient has had his vaccine in the booster. Charges/Coding Visit Charges Inpatient E&M: 89134 Subs Hosp L2
[2021-11-07 08:11] LABS: Anisocytosis 2+; Differential Comment SCANNED; Macrocytosis 1+; Microcytosis 1+
[2021-11-07] MEDS: 0.9% Normal Saline 1,000 ML 125 ML IV (09:07)
[2021-11-07] MEDS: NYSTATIN 500,000 UNIT/5 ML UDC 500000 UNIT PO ×3 (09:11→22:11)
[2021-11-07] MEDS: Cholecalciferol (VIT D3) 25 MCG TABLET (1,000 UNITS) 50 MCG PO (09:12)
[2021-11-07] MEDS: Amiodarone 200 MG Tablet PO (09:12)
[2021-11-07] MEDS: Ferrous Sulfate 325 MG Tablet PO (09:12)
[2021-11-07] MEDS: Hydroxychloroquine 200 MG Tablet PO ×2 (09:12→16:14)
[2021-11-07] MEDS: Calcium Carbonate 500 MG Tablet PO ×2 (09:12→16:15)
[2021-11-07] MEDS: Carvedilol 12.5 MG Tablet PO ×2 (09:12→16:15)
[2021-11-07] MEDS: Losartan Potassium 25 MG Tablet PO (09:12)
[2021-11-07] MEDS: Folic Acid 1 MG Tablet PO (09:12)
[2021-11-07] MEDS: Azelastine HCl NASAL.SRY 1 SPRAY NASAL ×2 (09:13→22:10)
[2021-11-07] MEDS: Fluticasone 0.05% 1 SPRAY NASAL.SRY NASAL ×2 (09:13→22:11)
[2021-11-07] MEDS: Glycerin/Hypromellose/PEG400 15 ml Bottle 2 DRP EACH EYE (09:18)
--- NOTE | 2021-11-07 15:35 | CON.PCM.GI_ITS ---
HPI Consult Data Date of Consult: 11/07/21 HPI Narrative HPI Narrative: FARRAH LOZA, is a 81 M who presents Elderly patient currently in rehab after having ORIF right spiral femur fracture currently nonweightbearing. He presented to the hospital yesterday on with multiple complaints. He has a complicated past medical history of proximal atrial fibrillation on amiodarone and Xarelto therapy. On his evaluation he was discovered to be profoundly anemic in the ED. His past medical history is also complicated by COPD and rheumatoid arthritis on methotrexate. He is complaining of mouth pain and was diagnosed with stomatitis. On admission he was complaining of rectal pain. He said he has been more constipated than he usually is. He has a history of macrocytic anemia. His last normal hemoglobin with an elevated MCV was back on 10/2018. He has no history of alcoholism. He does not know if any history of hypothyroidism or hyperthyroidism. He has no history of chronic viral hepatitis. He says that occasionally he does have some rectal bleeding but he was told that he has hemorrhoids. [facility] Medical History Atrial fibrillation COPD (chronic obstructive pulmonary disease) HTN (hypertension) Paroxysmal A-fib Restrictive lung disease Rheumatoid arthritis Small bowel obstruction Home Medications folic acid 1 mg PO DAILY 11/07/18 [History Last Taken 11/06/18] hydroxychloroquine 200 mg PO BID 11/07/18 [History Last Taken Unknown] methotrexate sodium 8 tab PO MO 11/07/18 [History Last Taken 12/03/18] cholecalciferol (vitamin D3) 2,000 unit PO DAILY@0800 12/13/18 [History Last Taken Unknown] pantoprazole 40 mg PO DAILY 01/08/19 [History Last Taken 01/09/19 05:00] calcium carbonate 500 mg PO BIDCM tab 01/18/19 [Rx Last Taken Unknown] oxycodone 5 - 10 mg PO Q4H PRN PRN 01/25/19 [History Last Taken Unknown] ferrous sulfate 325 mg (65 mg iron) tablet,delayed release 325 mg PO DAILY tab 03/11/19 [History Last Taken Unknown] furosemide 40 mg tablet 20 mg PO DAILY tab 12/25/19 [History Last Taken Unknown] azelastine 205.5 mcg (0.15 %) nasal spray 1 spray INTRANASAL BID #3 units 09/30/20 [Rx Last Taken Unknown] fluticasone propionate 50 mcg/actuation nasal spray,suspension 1 spray INTRANASAL BID #3 device 09/30/20 [Rx Last Taken Unknown] rivaroxaban 20 mg tablet See Rx Instructions .ROUTE .COMPLEX #90 tab 11/19/20 [Rx Last Taken Unknown] amiodarone 200 mg tablet See Rx Instructions .ROUTE .COMPLEX #90 tablet 02/09/21 [Rx Last Taken Unknown] duloxetine 30 mg capsule,delayed release 30 mg PO QHS cap 05/26/21 [History Last Taken Unknown] carvedilol 12.5 mg PO BID 09/21/21 [History Last Taken Unknown] losartan 25 mg PO DAILY 09/21/21 [History Last Taken Unknown] propylene glycol [Systane Complete] 2 drp EACH EYE Q2H PRN PRN 11/06/21 [History Last Taken Unknown] Allergy/AdvReac Type Severity Reaction Status Date / Time Penicillins Allergy Severe rash Verified 09/21/21 16:32 Family History Mother Pancreatic cancer Father Heart problem Sister Breast cancer Surgical History History of bowel resection (11/08/18) History of carpal tunnel release of both wrists History of cholecystectomy History of right hip replacement History of rotator cuff surgery Status post trigger finger release Status post wrist surgery Social History (Updated 11/06/21 @ 20:46 by Jackeline Baldwin) household members: spouse and family Smoking Status: Never smoker alcohol intake: never caffeine: Yes Type: coffee Number of servings: 1 ROS Review of Systems ROS Unobtainable: other Constitutional Constitutional: Denies fatigue, fever(s), poor appetite, weight gain or weight loss ENT HEENT: Denies mouth lesions Cardiovascular Cardiovascular: Denies abdominal bloating, abdominal edema or abdominal pain Respiratory/Chest Respiratory/Chest: Denies change in mental status, change in phlegm color, chest congestion or chest tightness Gastrointestinal Gastrointestinal: Denies belching, bloating, change in bowel habits, change in stool character, chewing difficulty, coffee ground emesis, constipation, cramping, diarrhea, dyspepsia, dysphagia, early satiety, excessive flatus, fecal incontinence, heartburn, hematemesis, hematochezia, hemorrhoids, loose stools, melena, nausea, odynophagia, rectal bleeding, tenesmus, vomiting or weight changes Genitourinary Genitourinary: Denies abdominal discomfort, burning urination or itching Musculoskeletal Musculoskeletal: Reports as per HPI; Denies muscle weakness or myalgias Integumentary Integumentary: Denies jaundice Neurologic Neurologic: Denies lack of coordination or weakness Psychiatric Psychiatric: Denies confusion, depression, memory loss, mood swings, paranoia or suicidal ideation Endocrine Endocrinology: Denies systems reviewed and no addt'l complaints, except as documented Hematologic/Lymphatic Hematologic/Lymphatic: Denies anemia, easy bleeding, easy bruising or lymphadenopathy Allergic/Immunologic Allergic/Immunologic: Denies systems reviewed and no addt'l complaints, except as documented Physical Exam Const alert General Appearance: cooperative Orientation / Consciousness: oriented to person HEENT hearing grossly normal bilaterally Head and Scalp: normal to inspection Face and Sinus: face symmetric Nose: external nose normal Mouth: oral and palatal mucosa normal Eyes conjunctivae normal General Eye: normal appearance of both eyes Neck full ROM General: normal visual inspection Lymph Lymphatic: no lymphadenopathy noted Chest inspection of chest normal and palpation of chest normal Chest: symmetrical chest wall rise Resp normal respiratory effort Effort and Inspection: able to speak in complete sentences Cardio regular rate GI non-distended Percussion: normal to percussion Rectal Exam: deferred Neuro Speech: speech normal Gait (Neuro): normal gait Medical Records Data Medical Nutrition Assessment Dietitian: Malnutrition Criteria Met Start: 11/07/21 12:44 Freq: Status: Active Protocol: Document 11/07/21 12:44 EDUIN (Rec: 11/07/21 12:44 EDUIN [id number]) Nutrition Malnutrition Evidence of Malnutrition Exists Yes Malnutrition (severe): Acute Illness/Injury Evidenced By Suboptimal Energy Intake ( Severe),Weight Loss (Severe) Clinical Problem Acute Disease or Injury Related Malnutrition Etiology related to pt not having much of an appetite, therefore not meeting est nutritional needs Signs/Symptoms as evidenced by pt self report of decreased appetite and wt 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 (8.3%) 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 Problem Recommendation Dietitian Recommendations/Changes As medically able, rec diet as tolerated to liberal Regular w/ 4 oz ensure enlive w/ meals tid Lab / Micro Data Result Diagrams: 11/07/21 06:30 11/07/21 06:30 Labs: Laboratory Results - last 24 hr 11/06/21 16:00: WBC 6.3, RBC 2.68 L, Hgb 8.5 L, Hct 28.3 L, MCV 105.6 H, MCH 31.7, MCHC 30.0 L, RDW Std Deviation 64.9 H, RDW Coeff of Deandre 17.0 H, Plt Count 426, MPV 9.1, Immature Gran % (Auto) 1.900 H, Neut % (Auto) 74.7 H, Lymph % (Auto) 14.7 L, [place] % (Auto) 7.0, Eos % (Auto) 1.1, Baso % (Auto) 0.6, Absolute Neuts (auto) 4.7, Absolute Lymphs (auto) 0.93, Nucleated RBC % 0 11/06/21 16:00: Sodium 136, Potassium 4.0, Chloride 93 L, Carbon Dioxide 39.0 H, Anion Gap 4 L, BUN 20 H, Creatinine 1.08, Estim Creat Clear Calc 58.88, Est GFR (MDRD) Af Amer 84, Est GFR (MDRD) Non-Af 70, BUN/Creatinine Ratio 18.5, Glucose 104, Calcium 9.0 11/06/21 16:00: Blood Type A NEGATIVE, Antibody Screen NEGATIVE 11/06/21 21:30: WBC 6.8, RBC 2.65 L, Hgb 8.6 L, Hct 27.1 L, MCV 102.3 H, MCH 32.5 H, MCHC 31.7 L D, RDW Std Deviation 62.8 H, RDW Coeff of Deandre 17.0 H, Plt Count 389, MPV 9.0 11/07/21 06:30: WBC 8.1, RBC 2.79 L, Hgb 8.8 L, Hct 29.5 L, MCV 105.7 H, MCH 31.5, MCHC 29.8 L D, RDW Std Deviation 65.1 H, RDW Coeff of Deandre 16.9 H, Plt Count 423, MPV 9.1, Immature Gran % (Auto) 2.000 H, Neut % (Auto) 74.2 H, Lymph % (Auto) 13.1 L, [place] % (Auto) 9.1, Eos % (Auto) 1.1, Baso % (Auto) 0.5, Absolute Neuts (auto) 6.0, Absolute Lymphs (auto) 1.06, Nucleated RBC % 0, Differential Comment SCANNED, Anisocytosis 2+, Microcytosis 1+, Macrocytosis 1+ 11/07/21 06:30: Sodium 136, Potassium 4.0, Chloride 91 L, Carbon Dioxide 38.0 H, Anion Gap 7, BUN 20 H, Creatinine 1.04, Estim Creat Clear Calc 68.39, Est GFR (MDRD) Af Amer 88, Est GFR (MDRD) Non-Af 73, BUN/Creatinine Ratio 19.2, Glucose 73 L, Calcium 8.6, Total Bilirubin 0.50, AST 19, ALT 19, Alkaline Phosphatase 71, Total Protein 6.2 L, Albumin 1.9 L, Globulin 4.3 H, Albumin/Globulin Ratio 0.4 L Micro: Microbiology 11/06/21 16:00 Stool Stool Occult Blood (ANUSHA) - Final Occult Blood Positive Assessment & Plan Assessment/Plan (1) Acute blood loss anemia: PLAN: The differential diagnosis for his macrocytic anemia would include amiodarone and induced injury to the liver. It is not possible to access his possible liver disease. Due to the fact that he is on anticoagulation. Typically which she would see is increased MCV in the setting of increased INR which would increase the risk of chronic liver disease. His platelet count is normal which grossly gets cirrhosis. However he could have signs of portal hypertension and varices which could lead to his GI bleed. Think that he would benefit from an upper or lower endoscopy to evaluate his, nausea, anemia, upper GI tract for portal gastropathy, varices. We can also evaluate his lower GI tract to see why he is having rectal pain. He was explained alternatives, risk, benefits including outstanding bleeding, infection, sepsis, perforation, need fo r emergency or . ASA of 3. Charges/Coding Visit Charges Inpatient E&M: 67270 Init Hosp L2
[2021-11-07] MEDS: 0.9% Normal Saline 1,000 ML 15 ML IV (18:30)
[2021-11-07] MEDS: Bisacodyl 5 MG Tablet 20 MG PO (19:04)
[2021-11-07] MEDS: oxyCODONE 5 MG Tablet PO (19:34)
[2021-11-07] MEDS: Electrolyte Solution/Peg's 4000 ML PO (19:37)
[2021-11-07] MEDS: Magnesium Citrate 300 ML PO (22:09)
[2021-11-07] MEDS: DULoxetine Hcl 30 MG Capsule PO (22:11)
[2021-11-07] MEDS: Metoclopramide 10 MG/2 ML Vial 5 MG IV (22:13)
[2021-11-08] VITALS (14 sets, daily range): BP systolic 111–148; BP diastolic 51–79; PULSE 66–77; RESP 15–20; TEMP 36.2–37.1; O2SAT 88–100; BMI 33.4
[2021-11-08] MEDS: Menthol/Lanolin/Calamine/Znox 113 GM Tube 1 APPLIC TOPICAL ×2 (05:15→19:43)
[2021-11-08] MEDS: Metoclopramide 10 MG/2 ML Vial 5 MG IV ×4 (05:28→23:09)
[2021-11-08] MEDS: 0.9% Saline Lock 10 ML Syringe IV ×3 (05:32→18:43)
--- NOTE | 2021-11-08 05:55 | EKG12_ITS ---
Test Reason : AM EKG Blood Pressure : / mmHG Vent. Rate : 073 BPM Atrial Rate : 073 BPM P-R Int : 156 ms QRS Dur : 124 ms QT Int : 444 ms P-R-T Axes : 020 -03 064 degrees QTc Int : 489 ms Normal sinus rhythm Normal ECG When compared with ECG of 21-SEP-2021 18:28, No significant change was found Confirmed by BLADIMIR SHIPMAN, NIKA ([id number]), website/blog editor RENATA HANDY ([id number]) on 11/09/2021 10:07:40 AM Referred By: DR MUNROE Confirmed By:NIKA GARRISON MD
[2021-11-08 07:31] LABS: Absolute Neutrophil Count 10.4 X10^3/uL (2.0-7.7); Basophil# 0.02 X10^3/uL; Basophil% 0.2 % (0-1); Hematocrit 26.5 % (40-54); Mean Corp Hgb Conc 30.2 g/dL (32-36); Mean Corpuscular Hgb 31.9 pg (27.0-32.0); Mean Corpuscular Volume 105.6 fL (80-94); Mean Platelet Vol. 9.4 fl (6.2-12.0); Monocyte# 0.93 X10^3/uL; Monocyte% 7.4 % (0-10); NRBC Flagged by Analyzer 0 % (0-5); Neutrophil # 10.35 X10^3/uL (2.7-7.7); Neutrophil % 82.6 % (47-70); POSITIVE MORPHOLOGY YES; Platelet Count 371 K/mm3 (150-450); RBC Distribution Width CV 17.4 % (11.6-14.6); RBC Distribution Width SD 66.5 fl (35.1-43.9); Red Blood Count 2.51 M/mm3 (4.6-6.2); White Blood Count 12.5 K/mm3 (4.4-11.0)
[2021-11-08 07:42] LABS: Differential Indicated SCAN CRITERIA MET
[2021-11-08 07:54] LABS: International Normalized Ratio 1.2; Prothrombin Time (Protime)PT. 14.3 SECONDS (11.7-14.9)
[2021-11-08 07:55] LABS: Partial Thromboplast Time 43.6 Seconds (24.1-36.2)
[2021-11-08 08:00] LABS: ALB/GLOB Ratio 0.5 RATIO (0.9-2.4); AST(SGOT) 19 U/L (15-37); Alanine Aminotransfer ALT/SGPT 16 U/L (16-61); Albumin, Serum 1.8 g/dL (3.2-5.0); Alkaline Phosphatase 71 U/L (45-117); Anion Gap 5 (5-15); BUN 19 mg/dL (7-18); BUN/Creat Ratio 19.5 RATIO (10-20); Bilirubin, Direct 0.09 mg/dL (0.00-0.30); Calcium,Total 8.4 mg/dL (8.5-10.1); Chloride 95 mmol/L (98-107); Creatinine, Serum 0.97 mg/dL (0.70-1.30); EST Glomerular Filtration Rate 79 mL/min (>60); Est Glom Filt Rate - Afr Amer 95 mL/min (>60); Estimated Creatinine Clearance 73.33 ml/min; Globulin 3.8 g/dL (2.2-4.2); Glucose 106 mg/dL (74-106); Potassium 3.5 mmol/L (3.5-5.1); Protein, Total 5.6 g/dL (6.4-8.2); Sodium Level 138 mmol/L (136-145)
[2021-11-08 08:29] LABS: Anisocytosis 2+; Platelet Estimate ADEQUATE (ADEQ); Red Cell Morphology N CHROM NORMAL (NORM C&C)
[2021-11-08] MEDS: Cholecalciferol (VIT D3) 25 MCG TABLET (1,000 UNITS) 50 MCG PO (11:06)
[2021-11-08] MEDS: Amiodarone 200 MG Tablet PO (11:07)
[2021-11-08] MEDS: Folic Acid 1 MG Tablet PO (11:07)
[2021-11-08] MEDS: Calcium Carbonate 500 MG Tablet PO ×2 (11:07→18:43)
[2021-11-08] MEDS: Carvedilol 12.5 MG Tablet PO ×2 (11:07→18:42)
[2021-11-08] MEDS: Losartan Potassium 25 MG Tablet PO (11:08)
[2021-11-08] MEDS: Hydroxychloroquine 200 MG Tablet PO ×2 (11:08→18:42)
[2021-11-08] MEDS: NYSTATIN 500,000 UNIT/5 ML UDC 500000 UNIT PO ×3 (11:08→19:41)
[2021-11-08] MEDS: Methotrexate 2.5 MG Tablet 20 MG PO (11:09)
[2021-11-08] MEDS: Fluticasone 0.05% 1 SPRAY NASAL.SRY NASAL ×2 (11:09→19:41)
[2021-11-08] MEDS: Azelastine HCl NASAL.SRY 1 SPRAY NASAL ×2 (11:10→19:43)
--- NOTE | 2021-11-08 11:45 | PN.HOSP_ITS ---
Documented by User: Nathaniel WONG 11/08/21 11:59 Subjective Subjective Patient is an 81-year-old male lying in bed, alert and orient x3. Patient feels like nothing has been done for him while he has been here and appears agitated. Patient's biggest complaint is his mouth which he reports has been irritated for weeks now, reports that his lidocaine he received yesterday helped but has not requested any today. Denies development of any new symptoms overnight. Does not appear in acute distress. Objective Data Objective Data Vital Signs: Vital Signs Temp Pulse Resp BP Pulse Ox 98.8 F 70 18 121/66 H 96 11/08/21 10:27 11/08/21 10:27 11/08/21 10:27 11/08/21 10:27 11/08/21 10:27 Oxygen Flow Rate (L/min) 3 Oxygen Delivery Method Nasal Cannula Weight: 274 lb 14.663 oz Body Mass Index (BMI) 33.4 Intake & Output: Intake and Output for Last 24 Hours 11/06/21 11/07/21 11/08/21 23:59 23:59 23:59 Intake Total 335 / 335 1405 / 2005 750 / 750 Output Total 250 / 250 650 / 850 425 / 425 Balance 85 / 85 755 / 1155 325 / 325 Medical Nutrition Assessment Dietitian: Malnutrition Criteria Met Start: 11/07/21 12:44 Freq: Status: Active Protocol: Document 11/07/21 12:44 EDUIN (Rec: 11/07/21 12:44 SLA [id number]) Nutrition Malnutrition Evidence of Malnutrition Exists Yes Malnutrition (severe): Acute Illness/Injury Evidenced By Suboptimal Energy Intake ( Severe),Weight Loss (Severe) Clinical Problem Acute Disease or Injury Related Malnutrition Etiology related to pt not having much of an appetite, therefore not meeting est nutritional needs Signs/Symptoms as evidenced by pt self report of decreased appetite and wt 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 (8.3%) 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 Problem Recommendation Dietitian Recommendations/Changes As medically able, rec diet as tolerated to liberal Regular w/ 4 oz ensure enlive w/ meals tid Lab / Micro Data Result Diagrams: 11/08/21 06:29 11/08/21 06:29 Labs: Laboratory Results - last 24 hr 11/08/21 06:29: WBC 12.5 H, RBC 2.51 L, Hgb 8.0 L, Hct 26.5 L, MCV 105.6 H, MCH 31.9, MCHC 30.2 L, RDW Std Deviation 66.5 H, RDW Coeff of Deandre 17.4 H, Plt Count 371, MPV 9.4, Immature Gran % (Auto) 1.800 H, Neut % (Auto) 82.6 H, Lymph % (Auto) 8.0 L, [place] % (Auto) 7.4, Eos % (Auto) 0.0, Baso % (Auto) 0.2, Absolute Neuts (auto) 10.4 H, Absolute Lymphs (auto) 1.00, Nucleated RBC % 0, Platelet Estimate ADEQUATE, RBC Morphology N CHROM, Anisocytosis 2+ 11/08/21 06:29: Sodium 138, Potassium 3.5, Chloride 95 L, Carbon Dioxide 38.0 H, Anion Gap 5, BUN 19 H, Creatinine 0.97, Estim Creat Clear Calc 73.33, Est GFR (MDRD) Af Amer 95, Est GFR (MDRD) Non-Af 79, BUN/Creatinine Ratio 19.5, Glucose 106, Calcium 8.4 L, Total Bilirubin 0.40, Direct Bilirubin 0.09, AST 19, ALT 16, Alkaline Phosphatase 71, Total Protein 5.6 L, Albumin 1.8 L, Globulin 3.8, Albumin/Globulin Ratio 0.5 L 11/08/21 06:29: PT 14.3, INR 1.2, APTT 43.6 H Micro: Microbiology 11/06/21 16:00 Stool Stool Occult Blood (ANUSHA) - Final Occult Blood Positive Physical Exam Const alert, oriented x3 and no apparent distress HEENT HEENT Narrative: Oral lesions with erythema observed on the roof of the mouth. Eyes PERRL, EOMs intact bilaterally and conjunctivae normal Neck no lymphadenopathy, supple and no JVD Resp normal respiratory effort, no retractions, no use of accessory muscles and clear to auscultation bilaterally Cardio regular rate, regular rhythm, no murmurs and no JVD GI normal to inspection, nondistended, normoactive bowel sounds, soft to palpation and non-tender Extremity Extremity Narrative: Edematous bilateral lower extremities. General Extremity: edema Skin no rashes or lesions noted, no wounds and skin turgor normal Neuro CN's II-XII intact bilaterally Psych affect normal Assessment & Plan Assessment/Plan (1) Acute blood loss anemia: (2) Acute upper GI bleeding: PLAN: Day 2 Discharge planning: Current plan is for patient to discharge home when medically ready. 1) acute blood loss anemia secondary to GI bleed Stable, hemoglobin currently 8.0. GI is to have colonoscopy and possible EGD later on today, per Dr. Ann to locate source of bleed.. Plan; remain admitted, continue IV PPI, continue to hold Xarelto, continue to monitor CBC. 2) atrial fibrillation Rate is currently controlled. Continue amiodarone, hold Xarelto as above. 3) rheumatoid arthritis Continue MTX and Plaquenil. 4) stomatitis Oral lesions with erythema observed on the roof of the mouth. Has been on nystatin, but patient reports has not been helping. Oral lidocaine ordered. DVT prophylaxis - SCDs, hold home Xarelto as above. Patient seen by Nathaniel Mckeon PA-C, under the supervision of Dr. Acosta. Documented by User: Dr. Kale Acosta MD 11/08/21 13:13 Objective Data Lab / Micro Data Result Diagrams: 11/08/21 06:29 11/08/21 06:29 Assessment & Plan Addt'l Comments This patient was seen in conjunction with Nathaniel Mckeon PA-C. I have independently interviewed and examined the patient and reviewed pertinent historical, laboratory, and other data. Please refer to Nathaniel Mckeon PA-C's note for details of this patient's presentation, findings, and recommendations. I have reviewed Nathaniel Mckeon PA-C's note and concur with documented findings. In brief, patient is a an 81-year-old gentleman with past medical history single for paroxysmal A. fib on systemic anticoagulation with Eliquis admitted with GI bleed. Admitted to a monitored bed with consultation placed to GI with plans for patient to undergo endoscopic evaluation Physical Examination: GENERAL: cooperative HEENT: Atraumatic; EYES; Anicteric, Normal Conjunctiva NECK; supple, normal thyroid, RESPIRATORY: Diminished to auscultation CARDIOVASCULAR: Regular S1 S2, GI: soft, normoactive bowel sounds, : No Renal angle tenderness; EXTREMITIES: No edema, no clubbing, MUSCULOSKELETAL: no muscle waisting NEURO: Awake; no lateralizing signs. SKIN: No Rash PSYCH; Flat affect Assessment: 1. Acute blood loss anemia 2. GI bleed scheduled to undergo endoscopic evaluation both upper and lower 3. Paroxysmal A. fib 4. Essential hypertension 5. COPD 6. Restrictive lung disease 7. Rheumatoid arthritis 8. DVT prophylaxis ?SCDs only Recommendations: 1. I have discussed the results of my overview and impressions with the patient 2. Options for management were reviewed Charges/Coding Visit Charges Inpatient E&M: 00595 Subs Hosp L3
--- NOTE | 2021-11-08 15:29 | NURSING ---
report called to carlo Kulkarni went with patient to procedure
--- NOTE | 2021-11-08 16:00 | CASEMGMT ---
Social Work Consult: Discharge Planning Per RN CM patient from [facility] Met with patient and patient spouse in room. This social service coordinator inquired about plan from hospital. Patient spouse reports that patient was at [facility] and was to discharge to the community today. Patient spouse reports that patient was not able to make anymore progress in therapy as patient is nonweightbearing a broken leg. Patient spouse reports that plan was for patient to come home until patient has an increase in weightbearing status. Patient next appointment with doctor is on . Patient spouse reports to have received a hospital bed and miky today but no miky pad and to be working with the skilled nursing on getting all the DME set up. This social service coordinator inquiring if patient spouse would like for patient to return to the community or [facility]. Patient spouse reports I want to take him home, but not sure I can take care of him. Patient spouse agreeable to [facility] is patient is not able to return to home. Patient spouse did mention a comment about self pay but patient is getting ready to go to have a scope completed and this social service coordinator was not able to elaborate more on this. Telephone call to [facility], [facility] reports to be able to accept patient back and that the only reason patient was discharging was that family was not willing to pay privately and patient no longer met a skilled need. [facility]. Social work to continue to follow. Danielle AUSTIN, PARDEEP
--- NOTE | 2021-11-08 17:56 | OP.CCLET_ITS ---
07/20/2022 Semaj Concepcion Md Re : Upper GI endoscopy procedure for Lorenzo Huerta Dear Dr. Concepcion This procedure was performed on Monday, November 08, 2021. My impressions and recommendations are as follows: Impressions : - Non-bleeding grade II esophageal varices. - Type 2 isolated gastric varices (IGV2, varices located in the body, antrum or around the pylorus), without bleeding. - Portal hypertensive gastropathy. - Multiple gastric polyps. - Normal second portion of the duodenum. - No specimens collected. Recommendations : - [facility] patient to [facility]. - Resume previous diet. - Continue present medications. My findings are described in the full procedure note, which is enclosed. If I can be of further assistance, please feel free to contact me at . Sincerely, Adan Ann, 11/08/2021 5:55:57 PM This report has been signed electronically.
--- NOTE | 2021-11-08 17:56 | OP.EGD_ITS ---
Patient Name: Lorenzo Huerta Procedure Date: 11/08/2021 4:04 PM Date of : 1940 Age: 81 Procedure: Upper GI endoscopy Indications: Unexplained iron deficiency anemia Providers: Adan Ann DO Medicines: See the Anesthesia note for documentation of the administered medications Patient Profile: This is an 81 year old male. Refer to note in patient chart for documentation of history and physical. Patient has symptoms of acute nausea and acute throat burning. Complications: No immediate complications. Procedure: Pre-Anesthesia Assessment: - Prior to the procedure, a History and Physical was performed, and patient medications and allergies were reviewed. The patient is competent. The risks and benefits of the procedure and the sedation options and risks were discussed with the patient. All questions were answered and informed consent was obtained. Patient identification and proposed procedure were verified by the physician in the pre-procedure area. Mental Status Examination: alert and oriented. Airway Examination: normal oropharyngeal airway and neck mobility. Respiratory Examination: clear to auscultation. CV Examination: normal. Prophylactic Antibiotics: The patient does not require prophylactic antibiotics. Prior Anticoagulants: The patient has taken no previous anticoagulant or antiplatelet agents. ASA Grade Assessment: II - A patient with mild systemic disease. After reviewing the risks and benefits, the patient was deemed in satisfactory condition to undergo the procedure. The anesthesia plan was to use moderate sedation / analgesia (conscious sedation). Immediately prior to administration of medications, the patient was re-assessed for adequacy to receive sedatives. The heart rate, respiratory rate, oxygen saturations, blood pressure, adequacy of pulmonary ventilation, and response to care were monitored throughout the procedure. The physical status of the patient was re-assessed after the procedure. After obtaining informed consent, the endoscope was passed under direct vision. Throughout the procedure, the patient's blood pressure, pulse, and oxygen saturations were monitored continuously. The gastroscope was introduced through the mouth, and advanced to the second part of duodenum. The upper GI endoscopy was accomplished without difficulty. The patient tolerated the procedure well. Moderate Sedation: Moderate (conscious) sedation was administered by the endoscopy nurse and supervised by the endoscopist. The following parameters were monitored: oxygen saturation, heart rate, blood pressure, and response to care. Total physician intraservice time was 15 minutes. Scope In: 4:42:45 PM Scope Out: 4:47:53 PM Total Procedure Duration Time 0 hours 5 minutes 8 seconds Findings: Three columns of grade II varices were found in the lower third of the esophagus, 36 cm from the incisors. They were 5 mm in largest diameter. No stigmata of recent bleeding were evident and no red gerardo signs were present. Type 2 isolated gastric varices (IGV2, varices located in the body, antrum or around the pylorus) with no bleeding were found in the cardia. There were no stigmata of recent bleeding. They were 5 mm in largest diameter. Severe portal hypertensive gastropathy was found in the entire examined stomach. Multiple 5 mm sessile polyps with no bleeding and no stigmata of recent bleeding were found in the gastric body. The second portion of the duodenum was normal. Impression: - Non-bleeding grade II esophageal varices. - Type 2 isolated gastric varices (IGV2, varices located in the body, antrum or around the pylorus), without bleeding. - Portal hypertensive gastropathy. - Multiple gastric polyps. - Normal second portion of the duodenum. - No specimens collected. Recommendation: - [facility]. - Resume previous diet. - Continue present medications. Procedure Code(s): --- Professional --- 53840, Esophagogastroduodenoscopy, flexible, transoral; diagnostic, including collection of specimen(s) by brushing or washing, when performed (separate procedure) 66738, 59, Moderate sedation services provided by the same physician or other qualified health youth care specialist performing the diagnostic or therapeutic service that the sedation supports, requiring the presence of an independent trained observer to assist in the monitoring of the patient's level of consciousness and physiological status; initial 15 minutes of intraservice time, patient age 5 years or older CPT copyright 2017 [employer]. All rights reserved. The codes documented in this report are preliminary and upon zigzag stitcher review may be revised to meet current compliance requirements. Adan Ann DO 11/08/2021 5:55:57 PM This report has been signed electronically. Number of Addenda: 1 Note Initiated On: 11/08/2021 4:04 PM Addendum Number: 1 Addendum Date: 07/20/2022 7:23:18 AM MAC was used instead of moderate sedation for the patient. Adan Ann DO 07/20/2022 7:23:23 AM This report has been signed electronically.
[2021-11-08] MEDS: Ferrous Sulfate 325 MG Tablet PO (18:42)
[2021-11-08] MEDS: DULoxetine Hcl 30 MG Capsule PO (19:41)
[2021-11-09] MEDS: oxyCODONE 5 MG Tablet PO (01:49)
[2021-11-09 02:05] VITALS: BP 112/83; PULSE 69; RESP 18; TEMP 36.9; O2SAT 93
--- NOTE | 2021-11-09 02:12 | NURSING ---
snack given per request
[2021-11-09 03:05] VITALS: PULSE 73
[2021-11-09 04:57] LABS: Absolute Lymphocyte Count 0.89 X10^3/uL (0.83-4.51); Absolute Neutrophil Count 10.9 X10^3/uL (2.0-7.7); Basophil# 0.02 X10^3/uL; Basophil% 0.2 % (0-1); Eosinophil# 0.01 X10^3/uL; Eosinophils% 0.1 % (0-5); Hematocrit 25.8 % (40-54); Hemoglobin 7.7 g/dL (13.0-16.5); Lymphocyte # 0.89 X10^3/ul (0.83-4.51); Lymphocyte % 6.8 % (19-41); Mean Corp Hgb Conc 29.8 g/dL (32-36); Mean Corpuscular Hgb 32.1 pg (27.0-32.0); Mean Corpuscular Volume 107.5 fL (80-94); Mean Platelet Vol. 8.9 fl (6.2-12.0); Monocyte# 1.14 X10^3/uL; Monocyte% 8.7 % (0-10); NRBC Flagged by Analyzer 0 % (0-5); Neutrophil # 10.85 X10^3/uL (2.7-7.7); Neutrophil % 83.1 % (47-70); POSITIVE MORPHOLOGY YES; Platelet Count 301 K/mm3 (150-450); RBC Distribution Width CV 17.2 % (11.6-14.6); RBC Distribution Width SD 66.7 fl (35.1-43.9); White Blood Count 13.1 K/mm3 (4.4-11.0)
[2021-11-09] MEDS: Menthol/Lanolin/Calamine/Znox 113 GM Tube 1 APPLIC TOPICAL ×2 (05:10→14:08)
[2021-11-09 05:13] LABS: Differential Indicated SCAN CRITERIA MET
[2021-11-09 05:15] LABS: Anisocytosis 2+
[2021-11-09] MEDS: Metoclopramide 10 MG/2 ML Vial 5 MG IV ×2 (05:24→11:31)
[2021-11-09 07:04] VITALS: PULSE 65
[2021-11-09 07:36] VITALS: O2SAT 88
[2021-11-09] MEDS: Hydroxychloroquine 200 MG Tablet PO ×2 (07:59→16:00)
[2021-11-09] MEDS: Ferrous Sulfate 325 MG Tablet PO (07:59)
[2021-11-09] MEDS: Folic Acid 1 MG Tablet PO (07:59)
[2021-11-09] MEDS: Calcium Carbonate 500 MG Tablet PO ×2 (07:59→16:00)
[2021-11-09] MEDS: Amiodarone 200 MG Tablet PO (07:59)
[2021-11-09] MEDS: Cholecalciferol (VIT D3) 25 MCG TABLET (1,000 UNITS) 50 MCG PO (07:59)
[2021-11-09] MEDS: Carvedilol 12.5 MG Tablet PO ×2 (07:59→16:00)
[2021-11-09] MEDS: Fluticasone 0.05% 1 SPRAY NASAL.SRY NASAL (07:59)
[2021-11-09] MEDS: Azelastine HCl NASAL.SRY 1 SPRAY NASAL (08:00)
[2021-11-09 08:05] VITALS: BP 119/82; PULSE 70; RESP 18; TEMP 36.5; O2SAT 96
[2021-11-09] MEDS: Losartan Potassium 25 MG Tablet PO (08:05)
[2021-11-09] MEDS: NYSTATIN 500,000 UNIT/5 ML UDC 500000 UNIT PO (09:57)
[2021-11-09] MEDS: Sodium Ferric Gluconat 250 MG in 0.9% Normal Saline 250 ML 135 MG IV (10:12)
[2021-11-09] MEDS: 0.9% Saline Lock 10 ML Syringe IV (10:12)
--- NOTE | 2021-11-09 11:11 | PCM.TXEXTCAR ---
Diet 11/08/21 18:00 Diet: Cardiac - Heart Healthy Is pt able to select menu?: Yes Therapies Weight Bearing: Non weight bearing Physical Therapy: Eval and Treat Occupational Therapy: Eval and Treat Problem/Diagnosis (1) Acute blood loss anemia: Status: Acute (2) Acute upper GI bleeding: Status: Acute Allergies/Procedures Done in Hospital Allergies Penicillins Allergy (Severe, Verified 09/21/21 16:32) rash Type of Care/Length of Stay Estimated LOS: Convalescent Care Less Than 30 days Type of Care Needed: Skilled Rehab Potential: Good Prognosis: Good Additional Orders/Day of Discharge Day of Discharge: 11/09/21 Dietary and Speech Recommendations Dietitian Recommendations/Changes: As medically able, rec diet as tolerated to liberal Regular w/ 4 oz ensure enlive w/ meals tid Discharge Plan Admission Admit Date/Time: 11/06/21 18:18 Primary Reason for Your Visit: GI bleed Attending Provider: aKle Acosta Primary Care Provider: Semaj Concepcion Discharge Orders/Prescriptions Prescriptions: New lidocaine HCl [Lidocaine Viscous] 2 % Solution 5 ml PO Q3H PRN PRN (Reason: oral pain) Qty: 300 RF: 0 Continued ferrous sulfate 325 mg (65 mg iron) tablet,delayed release (DR/EC) 325 mg PO DAILY RF: 0 furosemide [Lasix] 40 mg tablet 20 mg PO DAILY RF: 0 fluticasone propionate 50 mcg/actuation spray,suspension 1 spray INTRANASAL BID Qty: 3 RF: 3 azelastine 0.15 % (205.5 mcg) spray,non-aerosol 1 spray INTRANASAL BID Qty: 3 RF: 3 duloxetine [Cymbalta] 30 mg capsule,delayed release(DR/EC) 30 mg PO QHS RF: 0 methotrexate sodium 2.5 MG tablet 8 tab PO MO RF: 0 folic acid 1 MG tablet 1 mg PO DAILY RF: 0 hydroxychloroquine 200 MG tablet 200 mg PO BID RF: 0 cholecalciferol (vitamin D3) 1,000 UNIT tablet 2,000 unit PO DAILY@0800 RF: 0 pantoprazole 40 MG tablet 40 mg PO DAILY RF: 0 calcium carbonate 500 MG tablet 500 mg PO BIDCM RF: 0 oxycodone 5 MG tablet 5 - 10 mg PO Q4H PRN PRN (Reason: Pain) RF: 0 losartan 25 mg Tablet 25 mg PO DAILY RF: 0 carvedilol 25 mg tablet 12.5 mg PO BID RF: 0 Systane Complete 0.6 % Drops 2 drp EACH EYE Q2H PRN PRN (Reason: Dry Eyes) RF: 0 rivaroxaban [Xarelto] 20 mg tablet See Rx Instructions .ROUTE .COMPLEX Qty: 90 RF: 3 amiodarone 200 mg tablet See Rx Instructions .ROUTE .COMPLEX Qty: 90 RF: 3 Referrals / Follow Up: Semaj Concepcion MD [Primary Care Provider] - Within 2 Weeks Pascual Peoples MD [NON-STAFF] - See Referral Note (Referral made to establish rheumatologic care since you need a new manager communication. ) Disposition Disposition (needs filled in before D/C Order can be placed): Detention Facility
[2021-11-09 11:27] VITALS: BP 114/60; PULSE 77; RESP 18; TEMP 37.3; O2SAT 92
--- NOTE | 2021-11-09 14:51 | DS.PCM_ITS ---
Documented by User: Nathaniel WONG 11/09/21 14:59 Providers Date of Admission: 11/06/21 Primary Care Physician: Dr. Semaj Concepcion MD Consultations 11/06/21 18:45 Consult: Gastroenterology Routine Consulting Provider: P[facility] Reason for Consult: GI bleed EMERGENT Consult: No MD Notified: Yes Date Notified: 11/07/21 Time Notified: 08:54 Method of Notification: Text Reason For Visit: GI BLEED Diagnosis Discharge Diagnosis (1) Acute blood loss anemia: Status: Acute Code(s): D62 - Acute posthemorrhagic anemia (2) Acute upper GI bleeding: Status: Acute Code(s): K92.2 - Gastrointestinal hemorrhage, unspecified Medications at Discharge Home Medications folic acid 1 mg PO DAILY 11/07/18 hydroxychloroquine 200 mg PO BID 11/07/18 methotrexate sodium 8 tab PO MO 11/07/18 cholecalciferol (vitamin D3) 2,000 unit PO DAILY@0800 12/13/18 pantoprazole 40 mg PO DAILY 01/08/19 calcium carbonate 500 mg PO BIDCM tab 01/18/19 oxycodone 5 - 10 mg PO Q4H PRN PRN 01/25/19 ferrous sulfate 325 mg (65 mg iron) tablet,delayed release 325 mg PO DAILY tab 03/11/19 furosemide 40 mg tablet 20 mg PO DAILY tab 12/25/19 azelastine 205.5 mcg (0.15 %) nasal spray 1 spray INTRANASAL BID #3 units 09/30/20 fluticasone propionate 50 mcg/actuation nasal spray,suspension 1 spray INTRANASAL BID #3 device 09/30/20 rivaroxaban 20 mg tablet See Rx Instructions .ROUTE .COMPLEX #90 tab 11/19/20 amiodarone 200 mg tablet See Rx Instructions .ROUTE .COMPLEX #90 tablet 02/09/21 duloxetine 30 mg capsule,delayed release 30 mg PO QHS cap 05/26/21 carvedilol 12.5 mg PO BID 09/21/21 losartan 25 mg PO DAILY 09/21/21 Systane Complete 2 drp EACH EYE Q2H PRN PRN 11/06/21 lidocaine HCl [Lidocaine Viscous] 5 ml PO Q3H PRN PRN #300 ml 11/09/21 Hospital Course Procedures EGD Summary of Care Provided Minutes Spent on Discharge: 35 Hospital Course: Disposition: Patient to discharge back to SNF. 1) acute blood loss anemia secondary to GI bleed Patient did undergo EGD while admitted which revealed nonbleeding grade 2 esophageal varices as well as grade 2 gastric varices, rest of report as noted above. Recommendations from GI are to continue present medications and resume previous diet. Patient is to follow-up with Dr. Ann within the next 2 weeks. Patient hemoglobin is stable. We will continue oral PPI and oral iron supplementation. 2) atrial fibrillation Rate is currently controlled. Continue amiodarone, continue home Xarelto. 3) rheumatoid arthritis Continue MTX and Plaquenil. EGD revealed portal hypertensive gastropathy as well as findings as noted above. Patient was advised by his primary care doctor that he should establish rheumatological care as his rheumatology medications could be contributing to his liver disease. 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 Rheumatological referral put in at discharge. 4) stomatitis Oral lesions with erythema observed on the roof of the mouth, significantly improved with oral lidocaine. Patient had previously been put on nystatin that provided no relief to patient lesions. Patient provided with as needed lidoca ine on discharge. Patient seen by Nathaniel Mckeon PA-C, under the supervision of Dr. Acosta. Physical Exam Narrative Patient is an 81-year-old male comfortably resting in bed, alert and orient x3. Patient reports significant improvement in regards to oral discomfort. Denies development of any new symptoms overnight. Does not appear in acute distress. Const alert, oriented x3 and no apparent distress HEENT normocephalic, head/scalp atraumatic and hearing grossly normal bilaterally Eyes PERRL, EOMs intact bilaterally and conjunctivae normal Neck no lymphadenopathy, supple and no JVD Resp normal respiratory effort Cardio regular rate, regular rhythm, no murmurs and no JVD GI normal to inspection, nondistended, normoactive bowel sounds, soft to palpation and non-tender Extremity normal to inspection and no clubbing, cyanosis or edema Skin no rashes or lesions noted, no wounds and skin turgor normal Neuro CN's II-XII intact bilaterally Psych affect normal Medical Records Data Medical Nutrition Assessment Dietitian: Malnutrition Criteria Met Start: 11/07/21 12:44 Freq: Status: Active Protocol: Document 11/07/21 12:44 [facility] (Rec: 11/07/21 12:44 SLA [id number]) Nutrition Malnutrition Evidence of Malnutrition Exists Yes Malnutrition (severe): Acute Illness/Injury Evidenced By Suboptimal Energy Intake ( Severe),Weight Loss (Severe) Clinical Problem Acute Disease or Injury Related Malnutrition Etiology related to pt not having much of an appetite, therefore not meeting est nutritional needs Signs/Symptoms as evidenced by pt self report of decreased appetite and wt loss (8.3%) 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 Active Problem Recommendation Dietitian Recommendations/Changes As medically able, rec diet as tolerated to liberal Regular w/ 4 oz ensure enlive w/ meals tid Weight / BMI Weight Weight: 274 lb 14.663 oz Body Mass Index (BMI) 33.4 ABG / Lab / Microbiology Data Result Diagrams: 11/09/21 04:45 11/08/21 06:29 Laboratory: Laboratory Results - last 24 hr 11/09/21 04:45: WBC 13.1 H, RBC 2.40 L, Hgb 7.7 L, Hct 25.8 L, MCV 107.5 H, MCH 32.1 H, MCHC 29.8 L, RDW Std Deviation 66.7 H, RDW Coeff of Deandre 17.2 H, Plt Count 301, MPV 8.9, Immature Gran % (Auto) 1.100 H, Neut % (Auto) 83.1 H, Lymph % (Auto) 6.8 L, Gilliam % (Auto) 8.7, Eos % (Auto) 0.1, Baso % (Auto) 0.2, Absolute Neuts (auto) 10.9 H, Absolute Lymphs (auto) 0.89, Nucleated RBC % 0, Anisocytosi s 2+ Microbiology: Microbiology 11/09/21 14:10 Nasal Secretion SARS-CoV-2 Antigen (Rapid) - Final 11/06/21 16:00 Stool Stool Occult Blood (ANUSHA) - Final Occult Blood Positive Meaningful Use Info Meaningful Use Diagnoses (Choose all that apply): None applicable Discharge Plan Admission Admit Date/Time: 11/06/21 18:18 Primary Reason for Your Visit: GI bleed Attending Provider: Evangelista Hsu Primary Care Provider: Semaj Concepcion Discharge Orders/Prescriptions Prescriptions: New lidocaine HCl [Lidocaine Viscous] 2 % Solution 5 ml PO Q3H PRN PRN (Reason: oral pain) Qty: 300 RF: 0 Continued ferrous sulfate 325 mg (65 mg iron) tablet,delayed release (DR/EC) 325 mg PO DAILY RF: 0 furosemide [Lasix] 40 mg tablet 20 mg PO DAILY RF: 0 fluticasone propionate 50 mcg/actuation spray,suspension 1 spray INTRANASAL BID Qty: 3 RF: 3 azelastine 0.15 % (205.5 mcg) spray,non-aerosol 1 spray INTRANASAL BID Qty: 3 RF: 3 duloxetine [Cymbalta] 30 mg capsule,delayed release(DR/EC) 30 mg PO QHS RF: 0 methotrexate sodium 2.5 MG tablet 8 tab PO MO RF: 0 folic acid 1 MG tablet 1 mg PO DAILY RF: 0 hydroxychloroquine 200 MG tablet 200 mg PO BID RF: 0 cholecalciferol (vitamin D3) 1,000 UNIT tablet 2,000 unit PO DAILY@0800 RF: 0 pantoprazole 40 MG tablet 40 mg PO DAILY RF: 0 calcium carbonate 500 MG tablet 500 mg PO BIDCM RF: 0 oxycodone 5 MG tablet 5 - 10 mg PO Q4H PRN PRN (Reason: Pain) RF: 0 losartan 25 mg Tablet 25 mg PO DAILY RF: 0 carvedilol 25 mg tablet 12.5 mg PO BID RF: 0 Systane Complete 0.6 % Drops 2 drp EACH EYE Q2H PRN PRN (Reason: Dry Eyes) RF: 0 rivaroxaban [Xarelto] 20 mg tablet See Rx Instructions .ROUTE .COMPLEX Qty: 90 RF: 3 amiodarone 200 mg tablet See Rx Instructions .ROUTE .COMPLEX Qty: 90 RF: 3 Referrals / Follow Up: Semaj Concepcion MD [Primary Care Provider] - 11/26/21 1:00 am Pascual Peoples MD [NON-STAFF] - See Referral Note (Referral made to establish rheumatologic care 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 ) Disposition Disposition (needs filled in before D/C Order can be placed): [facility] Documented by User: Dr. Kale Acosta MD 11/09/21 15:04 Providers Date of Admission: 11/06/21 Reason For Visit: GI BLEED Medications at Discharge Home Medications folic acid 1 mg PO DAILY 11/07/18 hydroxychloroquine 200 mg PO BID 11/07/18 methotrexate sodium 8 tab PO MO 11/07/18 cholecalciferol (vitamin D3) 2,000 unit PO DAILY@0800 12/13/18 pantoprazole 40 mg PO DAILY 01/08/19 calcium carbonate 500 mg PO BIDCM tab 01/18/19 oxycodone 5 - 10 mg PO Q4H PRN PRN 01/25/19 ferrous sulfate 325 mg (65 mg iron) tablet,delayed release 325 mg PO DAILY tab 03/11/19 furosemide 40 mg tablet 20 mg PO DAILY tab 12/25/19 azelastine 205.5 mcg (0.15 %) nasal spray 1 spray INTRANASAL BID #3 units 09/30/20 fluticasone propionate 50 mcg/actuation nasal spray,suspension 1 spray INTRANASAL BID #3 device 09/30/20 rivaroxaban 20 mg tablet See Rx Instructions .ROUTE .COMPLEX #90 tab 11/19/20 amiodarone 200 mg tablet See Rx Instructions .ROUTE .COMPLEX #90 tablet 02/09/21 duloxetine 30 mg capsule,delayed release 30 mg PO QHS cap 05/26/21 carvedilol 12.5 mg PO BID 09/21/21 losartan 25 mg PO DAILY 09/21/21 Systane Complete 2 drp EACH EYE Q2H PRN PRN 11/06/21 lidocaine HCl [Lidocaine Viscous] 5 ml PO Q3H PRN PRN #300 ml 11/09/21 Hospital Course Operations total hip replacement Summary of Care Provided Minutes Spent on Discharge: 35 Hospital Course: This patient was seen in conjunction with Nathaniel Mckeon PA-C. I have independently interviewed and examined the patient and reviewed pertinent historical, laboratory, and other data. Please refer to Nathaniel Mckeon PA-C's note for details of this patient's presentation, findings, and recommendations. I have reviewed Nathaniel Mckeon PA-C's note and concur with documented findings. In brief, patient is a an 81-year-old gentleman with past medical history single for paroxysmal A. fib on systemic anticoagulation with Eliquis admitted with GI bleed. Admitted to a monitored bed with consultation placed to GI with plans for patient to undergo endoscopic evaluation -Patient endoscopy performed on 12/09/[address] Ann demonstrated Non-bleeding grade II esophageal varices. - Type 2 isolated gastric varices (IGV2, varices located in the body, antrum or around the pylorus), without bleeding. - Portal hypertensive gastropathy. - Multiple gastric polyps. - Normal second portion of the duodenum. Assessment: 1. Acute blood loss anemia secondary to portal hypertensive gastropathy 2. GI bleed 3. Paroxysmal A. fib 4. Essential hypertension 5. COPD 6. Restrictive lung disease 7. Rheumatoid arthritis 8. DVT prophylaxis ?SCDs only Hospital course: As documented above ABG / Lab / Microbiology Data Result Diagrams: 11/09/21 04:45 11/08/21 06:29 Discharge Plan Admission Admit Date/Time: 11/06/21 18:18 Primary Reason for Your Visit: GI bleed Attending Provider: Evangelista Hsu Primary Care Provider: Semaj Concepcion Discharge Orders/Prescriptions Prescriptions: New lidocaine HCl [Lidocaine Viscous] 2 % Solution 5 ml PO Q3H PRN PRN (Reason: oral pain) Qty: 300 RF: 0 Continued ferrous sulfate 325 mg (65 mg iron) tablet,delayed release (DR/EC) 325 mg PO DAILY RF: 0 furosemide [Lasix] 40 mg tablet 20 mg PO DAILY RF: 0 fluticasone propionate 50 mcg/actuation spray,suspension 1 spray INTRANASAL BID Qty: 3 RF: 3 azelastine 0.15 % (205.5 mcg) spray,non-aerosol 1 spray INTRANASAL BID Qty: 3 RF: 3 duloxetine [Cymbalta] 30 mg capsule,delayed release(DR/EC) 30 mg PO QHS RF: 0 methotrexate sodium 2.5 MG tablet 8 tab PO MO RF: 0 folic acid 1 MG tablet 1 mg PO DAILY RF: 0 hydroxychloroquine 200 MG tablet 200 mg PO BID RF: 0 cholecalciferol (vitamin D3) 1,000 UNIT tablet 2,000 unit PO DAILY@0800 RF: 0 pantoprazole 40 MG tablet 40 mg PO DAILY RF: 0 calcium carbonate 500 MG tablet 500 mg PO BIDCM RF: 0 oxycodone 5 MG tablet 5 - 10 mg PO Q4H PRN PRN (Reason: Pain) RF: 0 losartan 25 mg Tablet 25 mg PO DAILY RF: 0 carvedilol 25 mg tablet 12.5 mg PO BID RF: 0 Systane Complete 0.6 % Drops 2 drp EACH EYE Q2H PRN PRN (Reason: Dry Eyes) RF: 0 rivaroxaban [Xarelto] 20 mg tablet See Rx Instructions .ROUTE .COMPLEX Qty: 90 RF: 3 amiodarone 200 mg tablet See Rx Instructions .ROUTE .COMPLEX Qty: 90 RF: 3 Referrals / Follow Up: Semaj Concepcion MD [Primary Care Provider] - 11/26/21 1:00 am Pascual Peoples MD [NON-STAFF] - See Referral Note (Referral made to establish rheumatologic care 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 ) Disposition Disposition (needs filled in before D/C Order can be placed): [facility] Charges/Coding Visit Charges Inpatient E&M: 18397 Disch Hosp Hospital Course Consultations Consultations: Consultations 11/06/21 18:45 Consult: Gastroenterology Routine Consulting Provider: Puneet Gastroenterology Reason for Consult: GI bleed EMERGENT Consult: No MD Notified: Yes Date Notified: 11/07/21 Time Notified: 08:54 Method of Notification: Text Operations total hip replacement
--- NOTE | 2021-11-09 15:15 | CASEMGMT ---
Social Work SW placed call to pt to discuss discharge plan. Pt states the miky lift has been delivered to pt home but the sling for the lift and the hospital bed has not been deliviered. Pt cannot return home without this DME in place and therefore pt will need to return to [facility]. [facility] inquired if pt can pay privately as insurance has stopped coverage. Pt agreeable to pay privately for SNF until DME is in place at home and pt can be transferred home safely. Phone call to Chel at [facility] and they are able to accept pt back under private pay. Pt is ready for discharge on this date. Transportation arranged with [facility] for cot transport at 1630. updated on discharge plan and time and agreeable. Nursing updated on discharge time. Orders faxed to [facility] and phone call to notify of discharge time. Plan: [facility]
== END 2021-11-09 17:43 | DRG 377 ==
LOC: ED 17:57 → PCU 18:00
PROVIDERS: Anesthesiology; Internal Medicine Gastroenterology; Physician Assistant; Emergency Provider Emergency Medicine; PCP Family Medicine; Visit Provider Internal Medicine
PROC: 0DJD8ZZ Inspection of Lower Intestinal Tract, Via Natural or Artificial Opening Endoscopic (ICD-10-PCS; CPT 45378; principal; 2021-11-08 14:15)
DX: K92.2 Gastrointestinal hemorrhage, unspecified (principal); E43 Unspecified severe protein-calorie malnutrition; D62 Acute posthemorrhagic anemia; K76.6 Portal hypertension; I85.00 Esophageal varices without bleeding; M06.9 Rheumatoid arthritis, unspecified; I48.0 Paroxysmal atrial fibrillation; K12.1 Other forms of stomatitis; D50.9 Iron deficiency anemia, unspecified; K31.7 Polyp of stomach and duodenum; I86.4 Gastric varices; Z68.33 Body mass index [BMI] 33.0-33.9, adult; I10 Essential (primary) hypertension; J44.9 Chronic obstructive pulmonary disease, unspecified; J98.4 Other disorders of lung; D53.9 Nutritional anemia, unspecified; Z96.641 Presence of right artificial hip joint; Z80.0 Family history of malignant neoplasm of digestive organs; Z79.01 Long term (current) use of anticoagulants; Z80.3 Family history of malignant neoplasm of breast; Z88.0 Allergy status to penicillin; Z90.49 Acquired absence of other specified parts of digestive tract
CPT/HCPCS: 36415; 80048; 80053; 82248; 82274; 85025; 85027; 85610; 85730; 86850; 86900; 86901; 87426; 93005; 97802; 99285; J7030; J7050; A4216; J2405; J2916; J3490; J8610

== ENCOUNTER 2021-11-15 13:03 | Inpatient (IN) | payer MEDICARE, BC, SELFPAY ==
[2021-11-15] VITALS (15 sets, daily range): BP systolic 116–156; BP diastolic 58–78; PULSE 70–82; RESP 16–25; TEMP 36.6–37.3; O2SAT 92–97; BMI 37.7; BMI 33.6
--- NOTE | 2021-11-15 13:23 | EKG12_ITS ---
Test Reason : Blood Pressure : / mmHG Vent. Rate : 069 BPM Atrial Rate : 069 BPM P-R Int : 162 ms QRS Dur : 104 ms QT Int : 434 ms P-R-T Axes : 036 000 061 degrees QTc Int : 465 ms Normal sinus rhythm Normal ECG Confirmed by CLAUDIA SHIPMAN, LETITIA ([id number]), editor greeting card ERUM LOUIS ([id number]) on 11/16/2021 10:47:42 AM Referred By: ERIC Confirmed By:LETITIA TAYLOR MD
--- NOTE | 2021-11-15 13:23 | ED.VIS.DYS ---
HPI History of Present Illness Chief Complaint: Shortness of Breath Informant: patient and EMS Onset/Context/Timing Onset: Days (3-4) Context: gradual Timing: Intermittent Quality: Positive for Dyspnea on exertion and Wheezing Current Severity: Mild Maximum Severity: Severe Worsened by: Exertion and Coughing Relieved by: Rest, Oxygen and Albuterol Associated Symptoms cough Chest Pain: Positive for None Narrative Narrative: Patient has had cough and worsening shortness of breath for the last several days. No fevers. No known contact with Covid. Needed in the past. According EMS he was 84% on 4 L nasal cannula at home and dyspnea, better after DuoNeb en route. According to , he has been on 3 L chronically with his concentrator, she bumped it up to 4 for the last day or so because he has been having more dyspnea. This morning even with just having a coughing fit without exerting himself, he desatted down to 84% while on his 4 L. With small amounts of exertion and coughing fits, patient extremely dyspneic. [facility] Medical History Atrial fibrillation COPD (chronic obstructive pulmonary disease) HTN (hypertension) Paroxysmal A-fib Restrictive lung disease Rheumatoid arthritis Small bowel obstruction Home Medications folic acid 1 mg PO DAILY 11/07/18 [History Last Taken 11/06/18] hydroxychloroquine 200 mg PO BID 11/07/18 [History Last Taken Unknown] methotrexate sodium 8 tab PO MO 11/07/18 [History Last Taken 12/03/18] cholecalciferol (vitamin D3) 2,000 unit PO DAILY@0800 12/13/18 [History Last Taken Unknown] pantoprazole 40 mg PO DAILY 01/08/19 [History Last Taken 01/09/19 05:00] calcium carbonate 500 mg PO BIDCM tab 01/18/19 [Rx Last Taken Unknown] oxycodone 5 - 10 mg PO Q4H PRN PRN 01/25/19 [History Last Taken Unknown] ferrous sulfate 325 mg (65 mg iron) tablet,delayed release 325 mg PO DAILY tab 03/11/19 [History Last Taken Unknown] furosemide 40 mg tablet 20 mg PO DAILY tab 12/25/19 [History Last Taken Unknown] azelastine 205.5 mcg (0.15 %) nasal spray 1 spray INTRANASAL BID #3 units 09/30/20 [Rx Last Taken Unknown] fluticasone propionate 50 mcg/actuation nasal spray,suspension 1 spray INTRANASAL BID #3 device 09/30/20 [Rx Last Taken Unknown] rivaroxaban 20 mg tablet See Rx Instructions .ROUTE .COMPLEX #90 tab 11/19/20 [Rx Last Taken Unknown] amiodarone 200 mg tablet See Rx Instructions .ROUTE .COMPLEX #90 tablet 02/09/21 [Rx Last Taken Unknown] duloxetine 30 mg capsule,delayed release 30 mg PO QHS cap 05/26/21 [History Last Taken Unknown] carvedilol 12.5 mg PO BID 09/21/21 [History Last Taken Unknown] losartan 25 mg PO DAILY 09/21/21 [History Last Taken Unknown] Systane Complete 2 drp EACH EYE Q2H PRN PRN 11/06/21 [History Last Taken Unknown] lidocaine HCl [Lidocaine Viscous] 5 ml PO Q3H PRN PRN #300 ml 11/09/21 [Rx Last Taken Unknown] Allergy/AdvReac Type Severity Reaction Status Date / Time Penicillins Allergy Severe rash Verified 11/15/21 13:04 Family History Mother Pancreatic cancer Father Heart problem Sister Breast cancer Surgical History History of bowel resection (11/08/18) History of carpal tunnel release of both wrists History of cholecystectomy History of right hip replacement History of rotator cuff surgery Status post trigger finger release Status post wrist surgery Social History household members: spouse and family Smoking Status: Never smoker alcohol intake: never caffeine: Yes Type: coffee Number of servings: 1 ROS ROS ED Constitutional Constitutional ED: Reports chills, fatigue and malaise; Denies body ache(s), fever(s) or headache(s) Eyes Eyes: Denies change in vision or diplopia ENT ENT ED: Denies rhinorrhea or sore throat Cardiovascular Cardiovascular: Denies chest pain or palpitations Respiratory/Chest Respiratory/Chest: Reports cough, dyspnea and dyspnea on exertion Gastrointestinal Gastrointestinal: Denies abdominal pain, diarrhea, nausea or vomiting Genitourinary Genitourinary ED: Denies dysuria or hematuria Musculoskeletal Musculoskeletal: Denies back pain or neck pain Integumentary Denies abscess or rash Neurologic Neurologic: Reports headache(s); Denies paresthesias or weakness Psychiatric Psychiatric: Denies anxiety or suicidal thoughts EXAM Physical Exam Const Vital Signs: 11/15/21 13:04 11/15/21 13:08 11/15/21 13:10 Temperature 98 F 98 F Temperature Source Temporal Temporal Pulse Rate 72 72 Respiratory Rate 16 16 Respiratory Effort Short of Breath Labored Respiratory Depth Shallow Blood Pressure 116/75 116/75 Blood Pressure Mean 88 88 Pulse Ox 94 94 Oxygen Delivery Method Nasal Cannula Nasal Cannula Nasal Cannula Oxygen Flow Rate (L/min) 2 2 11/15/21 13:44 11/15/21 14:16 11/15/21 15:15 Temperature Temperature Source Pulse Rate 72 Respiratory Rate 25 H Respiratory Effort Respiratory Depth Blood Pressure 136/62 H Blood Pressure Mean 86 Pulse Ox 94 92 97 Oxygen Delivery Method Nasal Cannula Nasal Cannula Nasal Cannula Oxygen Flow Rate (L/min) 2 2 11/15/21 15:16 11/15/21 16:00 Temperature 98.6 F 99 F Temperature Source Temporal Temporal Pulse Rate 72 82 Respiratory Rate 25 H 24 H Respiratory Effort Respiratory Depth Blood Pressure 136/62 H 131/64 H Blood Pressure Mean 86 86 Pulse Ox 97 94 Oxygen Delivery Method Nasal Cannula Nasal Cannula Oxygen Flow Rate (L/min) 2 2 Positive well nourished and well developed Constitutional Narrative: Malaised-appearing, no distress General Appearance ED: well developed and NAD HEENT Reports moist mucous membranes normocephalic and atraumatic Eyes PERRL and EOMs intact bilaterally Neck full ROM and supple Resp normal respiratory effort Resp Narrative: Slight end expiratory wheezes bilaterally, otherwise clear lungs Cardio regular rate, regular rhythm and no murmurs Rate: Negative for tachycardic GI non-tender and non-distended Auscultation: normoactive bowel sounds Palpation: soft Back/Spine no CVA tenderness General Back: other FROM Extremity normal to inspection and no calf tenderness General Extremety ED: Negative for edema, pulses abnormal or tenderness General Extremity: Negative for edema or pulses abnormal Neuro oriented x3, CN's II-XII intact bilaterally and no sensory deficits noted Sensorium / Orientation: awake and alert Motor Exam: strength 5/5 throughout Skin no rashes or lesions noted and no wounds MDM MDM MDM Narrative Medical decision making narrative: Patient with persistent oxygen requirement, work-up showing left lower lobe pneumonia with a parapneumonic small effusion. He is breathing well here, appears better on oxygen, he tested negative for Covid and influenza and since this appears to be a lobar pneumonia along with a leukocytosis, this is probably true negatives. We will start him on antibiotics, and admit to the hospital. He does use oxygen at home 3 L for chronic COPD, for which he sees Dr. Daniels. We increase it to 5 L, he is 90-92% and breathing better. Clinically stable on nasal cannula does not require ICU at this time. Lab Data Attestation: I reviewed the patient's lab results. Labs: Laboratory Results - last 24 hr 11/15/21 11/15/21 11/15/21 14:10 14:10 14:10 WBC 17.4 H RBC 2.74 L Hgb 8.7 L Hct 29.0 L MCV 105.8 H MCH 31.8 MCHC 30.0 L RDW Std Deviation 66.5 H RDW Coeff of Deandre 17.2 H Plt Count 244 MPV 10.0 Immature Gran % (Auto) 1.300 H Neut % (Auto) 85.7 H Lymph % (Auto) 5.1 L Mobile % (Auto) 7.6 Eos % (Auto) 0.1 Baso % (Auto) 0.2 Absolute Neuts (auto) 14.9 H Absolute Lymphs (auto) 0.88 Nucleated RBC % 0 Anisocytosis 2+ Sodium Cancelled Potassium Cancelled Chloride Cancelled Carbon Dioxide Cancelled Anion Gap Cancelled BUN Cancelled Creatinine Cancelled Estim Creat Clear Calc Cancelled Est GFR (MDRD) Af Amer Cancelled Est GFR (MDRD) Non-Af Cancelled BUN/Creatinine Ratio Cancelled Glucose Cancelled Lactic Acid 1.3 Calcium Cancelled Troponin I High Sens Cancelled 11/15/21 14:40 WBC RBC Hgb Hct MCV MCH MCHC RDW Std Deviation RDW Coeff of Deandre Plt Count MPV Immature Gran % (Auto) Neut % (Auto) Lymph % (Auto) Mobile % (Auto) Eos % (Auto) Baso % (Auto) Absolute Neuts (auto) Absolute Lymphs (auto) Nucleated RBC % Anisocytosis Sodium 139 Potassium 3.9 Chloride 98 Carbon Dioxide 38.0 H Anion Gap 3 L BUN 13 Creatinine 0.81 Estim Creat Clear Calc 80.83 Est GFR (MDRD) Af Amer 117 Est GFR (MDRD) Non-Af 97 BUN/Creatinine Ratio 16.0 Glucose 110 H Lactic Acid Calcium 8.8 Troponin I High Sens 18 Radiography Diagnostic Testing: Clinical Impression(s) from Imaging Studies Chest X-Ray 11/15/21 13:34 IMPRESSION: Progressive left basilar infiltrate with small left pleural effusion. Mild right basilar atelectasis. Electronically Signed: Donaldo Wyatt MD at 14:08 EST , Service support , EKG Initial EKG: Attestation: I personally reviewed and interpreted this EKG as follows: Interpretation: Sinus Rhythm and No Acute Injury Pattern Comments: normal ekg Discharge Plan Dx/Rx/DC Orders Clinical Impression: Pneumonia, Hypoxemia, Parapneumonic effusion, Acute exacerbation of chronic obstructive pulmonary disease (COPD) Disposition Disposition: Acute Care Hospital [facility]
--- NOTE | 2021-11-15 13:34 | RAD_ITS ---
STUDY: X-RAY CHEST REASON FOR EXAM: Male, 81 years old. Sob cough TECHNIQUE: Single AP portable view of the chest. COMPARISON: Comparison is made with prior study dated 09/21/2021. FINDINGS: EKG electrodes are seen. Pleural parenchymal changes at the left lung base in keeping with a small left pleural effusion with infiltrate in the posterior segment of the left lower lobe. This has progressed as compared to prior study. Mild right basilar linear atelectasis. Normal size heart. Normal mediastinum and spring. Normal visualized pulmonary arteries. There is atherosclerotic calcification of the aortic arch with tortuosity. There are diffuse degenerative changes of the visualized thoracic spine. There is degenerative osteoarthritis of the bilateral shoulders. There is no demonstrated abnormality of the visualized soft tissue structures of the upper abdomen. RAD/Chest 1 View (Portable) IMPRESSION: Progressive left basilar infiltrate with small left pleural effusion. Mild right basilar atelectasis. Electronically Signed: Donaldo Wyatt MD at 14:08 EST , Service support ,
[2021-11-15 14:19] LABS: Absolute Lymphocyte Count 0.88 X10^3/uL (0.83-4.51); Absolute Neutrophil Count 14.9 X10^3/uL (2.0-7.7); Basophil# 0.03 X10^3/uL; Basophil% 0.2 % (0-1); Eosinophil# 0.01 X10^3/uL; Eosinophils% 0.1 % (0-5); Hemoglobin 8.7 g/dL (13.0-16.5); Lymphocyte # 0.88 X10^3/ul (0.83-4.51); Lymphocyte % 5.1 % (19-41); Mean Corpuscular Hgb 31.8 pg (27.0-32.0); Mean Corpuscular Volume 105.8 fL (80-94); Monocyte# 1.32 X10^3/uL; Monocyte% 7.6 % (0-10); NRBC Flagged by Analyzer 0 % (0-5); Neutrophil # 14.94 X10^3/uL (2.7-7.7); Neutrophil % 85.7 % (47-70); POSITIVE MORPHOLOGY YES; Platelet Count 244 K/mm3 (150-450); RBC Distribution Width CV 17.2 % (11.6-14.6); RBC Distribution Width SD 66.5 fl (35.1-43.9); Red Blood Count 2.74 M/mm3 (4.6-6.2); White Blood Count 17.4 K/mm3 (4.4-11.0)
[2021-11-15 14:20] LABS: Differential Indicated SCAN CRITERIA MET
--- NOTE | 2021-11-15 14:29 | NURSING ---
CHEMISTRIES HEMOLIZED
[2021-11-15 14:36] LABS: Anisocytosis 2+
[2021-11-15 14:43] LABS: Lactic Acid 1.3 mmol/L (0.4-1.9)
[2021-11-15 15:01] LABS: Anion Gap 3 (5-15); BUN 13 mg/dL (7-18); Calcium,Total 8.8 mg/dL (8.5-10.1); Chloride 98 mmol/L (98-107); Creatinine, Serum 0.81 mg/dL (0.70-1.30); EST Glomerular Filtration Rate 97 mL/min (>60); Est Glom Filt Rate - Afr Amer 117 mL/min (>60); Estimated Creatinine Clearance 80.83 ml/min; Glucose 110 mg/dL (74-106); Potassium 3.9 mmol/L (3.5-5.1); Sodium Level 139 mmol/L (136-145); Troponin-I HS 18 pg/mL (3.0-78.0)
[2021-11-15] MEDS: levoFLOXacin IV 750 MG/150 ML BAG 100 MG IV (16:14)
--- NOTE | 2021-11-15 16:52 | NURSING ---
MED SURG JOJANETTEERI PNEUMONIA, HYPOXEMIA, COPD EXAC, PARAPNEUMONIC EFFUSION
--- NOTE | 2021-11-15 17:01 | HP.PCM.HOS_ITS ---
HPI - General HPI Narrative FARRAH LOZA, is a 81 M who presents with SOB over the past day. Pt was recently admitted for a GI bleed due to varices. Patient was then rehab up until this weekend and then became short of breath. Patient is on oxygen 3 L but had increasing up to 4. Patient presented to the emergency room and was noted to have leukocytosis of 17,000. Patient's pulse ox was down to 84% while he was on his 4 L. Patient had chest x-ray that showed left lower lobe pneumonia. Patient received a dose of IV levofloxacin. [facility] Medical History Atrial fibrillation COPD (chronic obstructive pulmonary disease) HTN (hypertension) Paroxysmal A-fib Restrictive lung disease Rheumatoid arthritis Small bowel obstruction Home Medications folic acid 1 mg PO DAILY 11/07/18 [History Last Taken 11/06/18] hydroxychloroquine 200 mg PO BID 11/07/18 [History Last Taken Unknown] methotrexate sodium 8 tab PO MO 11/07/18 [History Last Taken 12/03/18] cholecalciferol (vitamin D3) 2,000 unit PO DAILY@0800 12/13/18 [History Last Taken Unknown] pantoprazole 40 mg PO DAILY 01/08/19 [History Last Taken 01/09/19 05:00] calcium carbonate 500 mg PO BIDCM tab 01/18/19 [Rx Last Taken Unknown] oxycodone 5 - 10 mg PO Q4H PRN PRN 01/25/19 [History Last Taken Unknown] ferrous sulfate 325 mg (65 mg iron) tablet,delayed release 325 mg PO DAILY tab 03/11/19 [History Last Taken Unknown] furosemide 40 mg tablet 20 mg PO DAILY tab 12/25/19 [History Last Taken Unknown] azelastine 205.5 mcg (0.15 %) nasal spray 1 spray INTRANASAL BID #3 units 09/30/20 [Rx Last Taken Unknown] fluticasone propionate 50 mcg/actuation nasal spray,suspension 1 spray INTRANASAL BID #3 device 09/30/20 [Rx Last Taken Unknown] rivaroxaban 20 mg tablet See Rx Instructions .ROUTE .COMPLEX #90 tab 11/19/20 [Rx Last Taken Unknown] amiodarone 200 mg tablet See Rx Instructions .ROUTE .COMPLEX #90 tablet 02/09/21 [Rx Last Taken Unknown] duloxetine 30 mg capsule,delayed release 30 mg PO QHS cap 05/26/21 [History Last Taken Unknown] carvedilol 12.5 mg PO BID 09/21/21 [History Last Taken Unknown] losartan 25 mg PO DAILY 09/21/21 [History Last Taken Unknown] Systane Complete 2 drp EACH EYE Q2H PRN PRN 11/06/21 [History Last Taken Unknown] lidocaine HCl [Lidocaine Viscous] 5 ml PO Q3H PRN PRN #300 ml 11/09/21 [Rx Last Taken Unknown] Allergy/AdvReac Type Severity Reaction Status Date / Time Penicillins Allergy Severe rash Verified 11/15/21 13:04 Family History Mother Pancreatic cancer Father Heart problem Sister Breast cancer Surgical History History of bowel resection (11/08/18) History of carpal tunnel release of both wrists History of cholecystectomy History of right hip replacement History of rotator cuff surgery Status post trigger finger release Status post wrist surgery Social History household members: spouse and family Smoking Status: Never smoker alcohol intake: never caffeine: Yes Type: coffee Number of servings: 1 ROS ROS Narrative Hard of hearing. No further bleeding. All review of systems were negative except as mentioned above in the history of present illness and the other review of systems. Vital Signs Vital Signs Vital Signs: 11/15/21 13:04 11/15/21 13:08 11/15/21 13:10 Temperature 36.6 C 36.6 C Temperature Source Temporal Temporal Pulse Rate 72 72 Respiratory Rate 16 16 Respiratory Effort Short of Breath Labored Respiratory Depth Shallow Blood Pressure 116/75 116/75 Blood Pressure Mean 88 88 Pulse Ox 94 94 Oxygen Delivery Method Nasal Cannula Nasal Cannula Nasal Cannula Oxygen Flow Rate (L/min) 2 2 11/15/21 13:44 11/15/21 14:16 11/15/21 15:15 Temperature Temperature Source Pulse Rate 72 Respiratory Rate 25 H Respiratory Effort Respiratory Depth Blood Pressure 136/62 H Blood Pressure Mean 86 Pulse Ox 94 92 97 Oxygen Delivery Method Nasal Cannula Nasal Cannula Nasal Cannula Oxygen Flow Rate (L/min) 2 2 11/15/21 15:16 11/15/21 16:00 Temperature 37.0 C 37.2 C Temperature Source Temporal Temporal Pulse Rate 72 82 Respiratory Rate 25 H 24 H Respiratory Effort Respiratory Depth Blood Pressure 136/62 H 131/64 H Blood Pressure Mean 86 86 Pulse Ox 97 94 Oxygen Delivery Method Nasal Cannula Nasal Cannula Oxygen Flow Rate (L/min) 2 2 Weight Weight: 129.6 kg Body Mass Index (BMI) 37.7 Physical Exam Const alert General Appearance: cooperative HEENT normocephalic and head/scalp atraumatic Neck no lymphadenopathy and supple Resp normal respiratory effort, no retractions and no use of accessory muscles Resp Narrative: Cardio regular rate, regular rhythm, S1 normal heart sound and S2 normal heart sound GI normal to inspection, nondistended, normoactive bowel sounds, soft to palpation, non-tender and non-distended Extremity normal to inspection Extremity Narrative: Bilateral nonpitting lower extremity edema Skin Skin Narrative: Chronic venous stasis changes lower extremity Neuro Sensorium / Orientation: awake and alert Results Lab / Micro Data Attestation: I reviewed the patient's lab results. Result Diagrams: 11/15/21 14:10 11/15/21 14:40 Labs: Laboratory Results - last 24 hr 11/15/21 14:10: WBC 17.4 H, RBC 2.74 L, Hgb 8.7 L, Hct 29.0 L, MCV 105.8 H, MCH 31.8, MCHC 30.0 L, RDW Std Deviation 66.5 H, RDW Coeff of Deandre 17.2 H, Plt Count 244, MPV 10.0, Immature Gran % (Auto) 1.300 H, Neut % (Auto) 85.7 H, Lymph % (Auto) 5.1 L, [place] % (Auto) 7.6, Eos % (Auto) 0.1, Baso % (Auto) 0.2, Absolute Neuts (auto) 14.9 H, Absolute Lymphs (auto) 0.88, Nucleated RBC % 0, Anisocytosis 2+ 11/15/21 14:10: Sodium Cancelled, Potassium Cancelled, Chloride Cancelled, Carbon Dioxide Cancelled, Anion Gap Cancelled, BUN Cancelled, Creatinine Cancelled, Estim Creat Clear Calc Cancelled, Est GFR (MDRD) Af Amer Cancelled, Est GFR (MDRD) Non-Af Cancelled, BUN/Creatinine Ratio Cancelled, Glucose Cancelled, Calcium Cancelled, Troponin I High Sens Cancelled 11/15/21 14:10: Lactic Acid 1.3 11/15/21 14:40: Sodium 139, Potassium 3.9, Chloride 98, Carbon Dioxide 38.0 H, Anion Gap 3 L, BUN 13, Creatinine 0.81, Estim Creat Clear Calc 80.83, Est GFR (MDRD) Af Amer 117, Est GFR (MDRD) Non-Af 97, BUN/Creatinine Ratio 16.0, Glucose 110 H, Calcium 8.8, Troponin I High Sens 18 Micro: Microbiology 11/15/21 14:55 Nasal Secretion SARS-CoV-2 Antigen (Rapid) - Final 11/15/21 14:10 Mucosa - Nasopharyngeal Influenza Types A,B Direct FA (ANUSHA) - Final Radiology Impression Chest X-Ray 11/15/21 13:34 IMPRESSION: Progressive left basilar infiltrate with small left pleural effusion. Mild right basilar atelectasis. Electronically Signed: Donaldo Wyatt MD at 14:08 EST , Service support , Assessment & Plan Assessment/Plan (1) Pneumonia: QUALIFIERS: Pneumonia type: due to group B Streptococcus Laterality: left Lung location: lower lobe of lung Qualified Code(s): J15.3 - Pneumonia due to streptococcus, group B (2) Acute exacerbation of chronic obstructive pulmonary disease (COPD): PLAN: 1. Suspected pneumococcal pneumonia Patient with a new left lower lobe infiltrate Patient received levofloxacin in the emergency room. We will continue with ceftriaxone and azithromycin Check urinary antigens for Streptococcus and Legionella Sputum culture Pulmonary toilet 2. Acute exacerbation of COPD No audible wheezing but complicated by the pneumonia Patient received methylprednisolone in emergency room With 5 days of prednisone Bronchodilators 3. Recent GI bleed Patient was noted to have type II isolated gastric varices portal hypertensive gastropathy Follow-up GI as outpatient 4. Atrial fibrillation Currently rate controlled Continue with amiodarone and rivaroxaban 5. Rheumatoid arthritis With a pneumonia, hold off on Plaquenil and methotrexate for now 6. VTE prophylaxis: Not indicated be is currently anticoagulated 7. CODE STATUS: Confirmed with the patient. Patient wishes to be full code Discussed with the patient's significant other at bedside. Charges/Coding Visit Charges Inpatient E&M: 20309 Init Hosp L3
--- NOTE | 2021-11-15 17:45 | CASEMGMT ---
RN CM SAS PROGRAMMER CM to room to meet with patient for initial transition planning/care coordination assessment. RN PAYAL introduced self and role at [facility]. Pt alert, voices understanding and consents to assessment at this time. Patient's , Altagracia, present at bedside. Care providers, pharmacy, and demographics verified/updated at this time. PCP: Semaj Concepcion Specialists: [place]- cardiology, Jeremiah- pulmonology, Audra- ortho, Also currently seeing orthopedic doctor at [facility] Preferred Pharmacy: [facility] Insurance: Medicare & [place] Prescription Benefit: yes Living Will/HPOA: Patient's reports patient has a living will. HPOA is , Altagracia Huerta. Patient and made aware these forms are not on file at [facility] and may be brought in to be scanned into record. LNOK: , Altagracia Huerta. Granddaughter Hiwot Yuen is also a primary caregiver. Living Arrangements: Patient lives with and granddaughter in one story house with a ramp to enter the home. Patient is currently nonweightbearing s/p fall with right femur fracture requiring ORIF. Patient needs assistance with ADLs and is cared for by and granddaughter at home. Transportation: Patient is unable to drive and requires handicap accessible transport at this time related to nonweightbearing status. DME/HHC/SNF: Patient has tub bench, grab bars, bedside commode, walker and cane in home, but unable to use at this time. Patient strictly uses wheelchair for mobility at this time. reports she has ordered a larger, more comfortable wheelchair and is waiting for it's arrival. Patient has miky lift at home but is currently borrowing miky pad/sling from [facility] as he has not yet received the one that was ordered. Patient has a hospital bed. Patient wears oxygen continuous at home and has oxygen concentrator and portable tanks. unsure of which DME company supplies oxygen. reports oxygen flow liter ordered at 2LPM but has been using 3-4 LPM recently related to shortness of breath. Patient's reports she picked up medications for nebulizer machine from the pharmacy this week but does not have the nebulizer machine itself. Patient was recently discharged home from [facility] on 11/12/21, where he was paying privately since recent hospital discharge. Patient is current with [facility]. Patient plans to follow-up with orthopedic doctor at [facility] sometime this month (awaiting call back to schedule appointment) with hopes of nonweightbearing restrictions being lifted so that he may return to [facility] for therapies. Patient's wishes to take patient back home with resumption of HHC at time of discharge but understands he may need to return to SNF depending on care needs. CM to follow for any discharge planning/needs. Pt voices no concerns/needs at this time. Advised pt to ask for CM if any questions/concerns/needs arise. Voices understanding. PLAN/GOAL: home with resumption of HHC vs SNF, to be determined based on course of treatment
[2021-11-15] MEDS: MethylPREDNISolone 125 MG/2 ML Vial IV (17:48)
--- NOTE | 2021-11-15 19:17 | PCS.PANDOC ---
PANDEMIC DOCUMENTATION INITIATED: Date: 06/28/2021 Time: 190
[2021-11-15] MEDS: Ipratropium/Albuterol Sulfate 3 ML AMPUL.NEB INHALATION ×2 (19:32→22:35)
[2021-11-15] MEDS: Calcium Carbonate 500 MG Tablet PO (20:07)
[2021-11-15] MEDS: DULoxetine Hcl 30 MG Capsule PO (20:07)
[2021-11-15] MEDS: Carvedilol 12.5 MG Tablet PO (20:07)
[2021-11-15] MEDS: Azelastine HCl NASAL.SRY 1 SPRAY NASAL (20:07)
[2021-11-15] MEDS: Fluticasone 0.05% 1 SPRAY NASAL.SRY NASAL (20:08)
[2021-11-15] MEDS: guaiFENesin 10 ML UDC (200MG/10ML) 20 ML PO (20:09)
[2021-11-16] VITALS (8 sets, daily range): BP systolic 109–148; BP diastolic 50–77; PULSE 67–81; RESP 18–24; TEMP 36.6–36.8; O2SAT 93–97
[2021-11-16] MEDS: Menthol/Lanolin/Calamine/Znox 113 GM Tube 1 APPLIC TOPICAL ×3 (00:02→20:44)
[2021-11-16] MEDS: Nystatin Powder 15gm Bottle 1 APPLIC TOPICAL ×3 (00:02→20:43)
[2021-11-16] MEDS: BMX LIQUID 180 ML PO ×3 (00:03→14:25)
[2021-11-16] MEDS: guaiFENesin 10 ML UDC (200MG/10ML) 20 ML PO (02:02)
[2021-11-16 06:41] LABS: Absolute Lymphocyte Count 0.69 X10^3/uL (0.83-4.51); Absolute Neutrophil Count 14.2 X10^3/uL (2.0-7.7); Basophil# 0.01 X10^3/uL; Basophil% 0.1 % (0-1); Hematocrit 25.2 % (40-54); Hemoglobin 8.1 g/dL (13.0-16.5); Lymphocyte # 0.69 X10^3/ul (0.83-4.51); Lymphocyte % 4.5 % (19-41); Mean Corp Hgb Conc 32.1 g/dL (32-36); Mean Corpuscular Hgb 32.3 pg (27.0-32.0); Mean Corpuscular Volume 100.4 fL (80-94); Mean Platelet Vol. 9.7 fl (6.2-12.0); Monocyte# 0.27 X10^3/uL; Monocyte% 1.8 % (0-10); NRBC Flagged by Analyzer 0 % (0-5); Neutrophil # 14.15 X10^3/uL (2.7-7.7); Neutrophil % 92.8 % (47-70); Platelet Count 246 K/mm3 (150-450); RBC Distribution Width CV 16.9 % (11.6-14.6); RBC Distribution Width SD 61.1 fl (35.1-43.9); Red Blood Count 2.51 M/mm3 (4.6-6.2); White Blood Count 15.2 K/mm3 (4.4-11.0)
[2021-11-16] MEDS: Ipratropium/Albuterol Sulfate 3 ML AMPUL.NEB INHALATION ×3 (06:49→18:45)
[2021-11-16 07:08] LABS: ALB/GLOB Ratio 0.4 RATIO (0.9-2.4); AST(SGOT) 19 U/L (15-37); Alanine Aminotransfer ALT/SGPT 21 U/L (16-61); Albumin, Serum 1.6 g/dL (3.2-5.0); Alkaline Phosphatase 77 U/L (45-117); Anion Gap 5 (5-15); BUN 13 mg/dL (7-18); BUN/Creat Ratio 16.9 RATIO (10-20); Calcium,Total 8.6 mg/dL (8.5-10.1); Chloride 97 mmol/L (98-107); Creatinine, Serum 0.77 mg/dL (0.70-1.30); EST Glomerular Filtration Rate 103 mL/min (>60); Est Glom Filt Rate - Afr Amer 125 mL/min (>60); Estimated Creatinine Clearance 71.13 ml/min; Globulin 4.2 g/dL (2.2-4.2); Glucose 134 mg/dL (74-106); Potassium 4.1 mmol/L (3.5-5.1); Protein, Total 5.8 g/dL (6.4-8.2); Sodium Level 139 mmol/L (136-145)
[2021-11-16] MEDS: Losartan Potassium 25 MG Tablet PO (08:20)
[2021-11-16] MEDS: Calcium Carbonate 500 MG Tablet PO ×2 (08:21→16:50)
[2021-11-16] MEDS: Pantoprazole Sodium 40 MG Tablet PO (08:21)
[2021-11-16] MEDS: predniSONE 20 MG Tablet 40 MG PO (08:21)
[2021-11-16] MEDS: Folic Acid 1 MG Tablet PO (08:22)
[2021-11-16] MEDS: Carvedilol 12.5 MG Tablet PO ×2 (08:22→20:45)
[2021-11-16] MEDS: Amiodarone 200 MG Tablet PO (08:22)
[2021-11-16] MEDS: Furosemide 20 MG Tablet PO (08:23)
[2021-11-16] MEDS: Fluticasone 0.05% 1 SPRAY NASAL.SRY NASAL ×2 (08:24→20:45)
[2021-11-16] MEDS: Azelastine HCl NASAL.SRY 1 SPRAY NASAL ×2 (08:24→20:44)
--- NOTE | 2021-11-16 08:47 | PN.HOSP_ITS ---
Objective Data Objective Data Vital Signs: Vital Signs Temp Pulse Resp BP Pulse Ox 97.9 F 77 20 H 138/68 H 94 11/16/21 08:16 11/16/21 08:16 11/16/21 08:16 11/16/21 08:16 11/16/21 08:16 Oxygen Flow Rate (L/min) 3 Oxygen Delivery Method Nasal Cannula Weight: 276 lb 6.4 oz Body Mass Index (BMI) 33.6 Intake & Output: Intake and Output for Last 24 Hours 11/14/21 11/15/21 11/16/21 23:59 23:59 23:59 Intake Total 150 / 150 Output Total 300 / 300 300 / 300 Balance -150 / -150 -300 / -300 Lab / Micro Data Result Diagrams: 11/16/21 06:30 11/16/21 06:30 Labs: Laboratory Results - last 24 hr 11/15/21 14:10: WBC 17.4 H, RBC 2.74 L, Hgb 8.7 L, Hct 29.0 L, MCV 105.8 H, MCH 31.8, MCHC 30.0 L, RDW Std Deviation 66.5 H, RDW Coeff of Deandre 17.2 H, Plt Count 244, MPV 10.0, Immature Gran % (Auto) 1.300 H, Neut % (Auto) 85.7 H, Lymph % (Auto) 5.1 L, Jones % (Auto) 7.6, Eos % (Auto) 0.1, Baso % (Auto) 0.2, Absolute Neuts (auto) 14.9 H, Absolute Lymphs (auto) 0.88, Nucleated RBC % 0, Anisocytosis 2+ 11/15/21 14:10: Sodium Cancelled, Potassium Cancelled, Chloride Cancelled, Carbon Dioxide Cancelled, Anion Gap Cancelled, BUN Cancelled, Creatinine Cancelled, Estim Creat Clear Calc Cancelled, Est GFR (MDRD) Af Amer Cancelled, Est GFR (MDRD) Non-Af Cancelled, BUN/Creatinine Ratio Cancelled, Glucose Cance lled, Calcium Cancelled, Troponin I High Sens Cancelled 11/15/21 14:10: Lactic Acid 1.3 11/15/21 14:40: Sodium 139, Potassium 3.9, Chloride 98, Carbon Dioxide 38.0 H, Anion Gap 3 L, BUN 13, Creatinine 0.81, Estim Creat Clear Calc 80.83, Est GFR (MDRD) Af Amer 117, Est GFR (MDRD) Non-Af 97, BUN/Creatinine Ratio 16.0, Glucose 110 H, Calcium 8.8, Troponin I High Sens 18 11/16/21 06:30: WBC 15.2 H, RBC 2.51 L, Hgb 8.1 L, Hct 25.2 L, MCV 100.4 H D, MCH 32.3 H, MCHC 32.1 D, RDW Std Deviation 61.1 H, RDW Coeff of Deandre 16.9 H, Plt Count 246, MPV 9.7, Immature Gran % (Auto) 0.800, Neut % (Auto) 92.8 H, Lymph % (Auto) 4.5 L, Jones % (Auto) 1.8, Eos % (Auto) 0.0, Baso % (Auto) 0.1, Absolute Neuts (auto) 14.2 H, Absolute Lymphs (auto) 0.69 L, Nucleated RBC % 0 11/16/21 06:30: Sodium 139, Potassium 4.1, Chloride 97 L, Carbon Dioxide 37.0 H, Anion Gap 5, BUN 13, Creatinine 0.77, Estim Creat Clear Calc 71.13, Est GFR (MDRD) Af Amer 125, Est GFR (MDRD) Non-Af 103, BUN/Creatinine Ratio 16.9, Glucose 134 H, Calcium 8.6, Total Bilirubin 0.30, AST 19, ALT 21, Alkaline Phosphatase 77, Total Protein 5.8 L, Albumin 1.6 L, Globulin 4.2, Albumin/Globulin Ratio 0.4 L Micro: Microbiology 11/15/21 23:00 Urine, Clean Catch Legionella Antigen - Final 11/15/21 23:00 Urine, Clean Catch Streptococcus pneumoniae Antigen (M - Final 11/15/21 14:55 Nasal Secretion SARS-CoV-2 Antigen (Rapid) - Final 11/15/21 14:10 Mucosa - Nasopharyngeal Influenza Types A,B Direct FA (ANUSHA) - Final Radiography Diagnostic Testing: Radiology Impression Chest X-Ray 11/15/21 13:34 IMPRESSION: Progressive left basilar infiltrate with small left pleural effusion. Mild right basilar atelectasis. Electronically Signed: Donaldo Wyatt MD at 14:08 EST , Service support ,
[2021-11-16] MEDS: 0.9% Saline Lock 10 ML Syringe IV (10:14)
--- NOTE | 2021-11-16 11:02 | PCM.PN.HOSP ---
Documented by User: JUANA Brooks 11/16/21 11:11 Subjective Subjective Patient seen and examined. Patient lying in bed no distress noted. Patient currently on 3 L nasal cannula oxygen which is patient's baseline. Objective Data Objective Data Vital Signs: Vital Signs Temp Pulse Resp BP Pulse Ox 97.9 F 77 24 H 138/68 H 94 11/16/21 08:16 11/16/21 08:16 11/16/21 10:28 11/16/21 08:16 11/16/21 10:28 Oxygen Flow Rate (L/min) 3 Oxygen Delivery Method Nasal Cannula Weight: 276 lb 6.4 oz Body Mass Index (BMI) 33.6 Intake & Output: Intake and Output for Last 24 Hours 11/14/21 11/15/21 11/16/21 23:59 23:59 23:59 Intake Total 150 / 150 52 / 52 Output Total 300 / 300 300 / 300 Balance -150 / -150 -248 / -248 Lab / Micro Data Result Diagrams: 11/16/21 06:30 11/16/21 06:30 Labs: Laboratory Results - last 24 hr 11/15/21 14:10: WBC 17.4 H, RBC 2.74 L, Hgb 8.7 L, Hct 29.0 L, MCV 105.8 H, MCH 31.8, MCHC 30.0 L, RDW Std Deviation 66.5 H, RDW Coeff of Deandre 17.2 H, Plt Count 244, MPV 10.0, Immature Gran % (Auto) 1.300 H, Neut % (Auto) 85.7 H, Lymph % (Auto) 5.1 L, [place] % (Auto) 7.6, Eos % (Auto) 0.1, Baso % (Auto) 0.2, Absolute Neuts (auto) 14.9 H, Absolute Lymphs (auto) 0.88, Nucleated RBC % 0, Anisocytosis 2+ 11/15/21 14:10: Sodium Cancelled, Potassium Cancelled, Chloride Cancelled, Carbon Dioxide Cancelled, Anion Gap Cancelled, BUN Cancelled, Creatinine Cancelled, Estim Creat Clear Calc Cancelled, Est GFR (MDRD) Af Amer Cancelled, Est GFR (MDRD) Non-Af Cancelled, BUN/Creatinine Ratio Cancelled, Glucose Cancelled, Calcium Cancelled, Troponin I High Sens Cancelled 11/15/21 14:10: Lactic Acid 1.3 11/15/21 14:40: Sodium 139, Potassium 3.9, Chloride 98, Carbon Dioxide 38.0 H, Anion Gap 3 L, BUN 13, Creatinine 0.81, Estim Creat Clear Calc 80.83, Est GFR (MDRD) Af Amer 117, Est GFR (MDRD) Non-Af 97, BUN/Creatinine Ratio 16.0, Glucose 110 H, Calcium 8.8, Troponin I High Sens 18 11/16/21 06:30: WBC 15.2 H, RBC 2.51 L, Hgb 8.1 L, Hct 25.2 L, MCV 100.4 H D, MCH 32.3 H, MCHC 32.1 D, RDW Std Deviation 61.1 H, RDW Coeff of Deandre 16.9 H, Plt Count 246, MPV 9.7, Immature Gran % (Auto) 0.800, Neut % (Auto) 92.8 H, Lymph % (Auto) 4.5 L, [place] % (Auto) 1.8, Eos % (Auto) 0.0, Baso % (Auto) 0.1, Absolute Neuts (auto) 14.2 H, Absolute Lymphs (auto) 0.69 L, Nucleated RBC % 0 11/16/21 06:30: Sodium 139, Potassium 4.1, Chloride 97 L, Carbon Dioxide 37.0 H, Anion Gap 5, BUN 13, Creatinine 0.77, Estim Creat Clear Calc 71.13, Est GFR (MDRD) Af Amer 125, Est GFR (MDRD) Non-Af 103, BUN/Creatinine Ratio 16.9, Glucose 134 H, Calcium 8.6, Total Bilirubin 0.30, AST 19, ALT 21, Alkaline Phosphatase 77, Total Protein 5.8 L, Albumin 1.6 L, Globulin 4.2, Albumin/Globulin Ratio 0.4 L Micro: Microbiology 11/15/21 23:00 Urine, Clean Catch Legionella Antigen - Final 11/15/21 23:00 Urine, Clean Catch Streptococcus pneumoniae Antigen (M - Final 11/15/21 14:55 Nasal Secretion SARS-CoV-2 Antigen (Rapid) - Final 11/15/21 14:10 Mucosa - Nasopharyngeal Influenza Types A,B Direct FA (ANUSHA) - Final Radiography Diagnostic Testing: Radiology Impression Chest X-Ray 11/15/21 13:34 IMPRESSION: Progressive left basilar infiltrate with small left pleural effusion. Mild right basilar atelectasis. Electronically Signed: Donaldo Wyatt MD at 14:08 EST , Service support , Physical Exam Const alert, oriented x3 and no apparent distress HEENT head/scalp atraumatic Head and Scalp: normocephalic Eyes conjunctivae normal and no scleral icterus Neck full ROM, no lymphadenopathy and supple Resp normal respiratory effort and normal air movement Effort and Inspection: able to speak in complete sentences and symmetric chest movement Auscultation: rhonchi Cardio regular rate, regular rhythm, S1 normal heart sound and S2 normal heart sound GI normal to inspection, nondistended, normoactive bowel sounds, soft to palpation and non-tender Extremity normal to inspection, full ROM and no clubbing, cyanosis or edema Peripheral Pulses: Yes pulses 2+ throughout Skin no rashes or lesions noted, no wounds and skin turgor normal Neuro oriented x3, moves all extremities, no focal motor deficits and no sensory deficits noted Sensorium / Orientation: awake and alert Psych affect normal Assessment & Plan Assessment/Plan (1) Pneumonia: QUALIFIERS: Laterality: left Lung location: lower lobe of lung Pneumonia type: due to group B Streptococcus Qualified Code(s): J15.3 - Pneumonia due to streptococcus, group B (2) Acute exacerbation of chronic obstructive pulmonary disease (COPD): PLAN: 1. Acute exacerbation of chronic obstructive pulmonary disease secondary to pneumonia -Continue scheduled duo nebs as well as as needed albuterol -Continue IV steroids and IV azithromycin -Leukocytosis improved today down to 15.2 2. Chronic anemia -Patient currently 8.1, consistent with patient's baseline over the past year -CBC ordered daily, if patient hemoglobin falls below 7 would recommend transfusion. DVT prophylaxis-chronically anticoagulated with Xarelto This patient was seen by JUANA Brooks under the supervision of Dr. Hsu. Documented by User: Dr. Evangelista Hsu MD 11/16/21 14:34 Subjective Subjective Patient has never been a smoker. Follows Dr. Daniels. Has COPD, restrictive lung disease and had left lung surgery outside hospital in the past No fever. Weak cough. Shortness of breath is better. Objective Data Lab / Micro Data Result Diagrams: 11/16/21 06:30 11/16/21 06:30 Physical Exam Narrative General: Alert, Oriented x3, Cooperative, BMI 33.6 kg/m? HEENT: Atraumatic, PERRLA, EOMI, Normocephalic Oral: No Gingival or Mucosal Lesions/ Ulcerations Neck: Supple, No JVD, Negative Carotid Bruits Lungs: Air entry diminished in left lung base. Bilateral coarse crepitations. Cardiovascular: Regular rate, Regular Rhythm, Normal S1, Normal S2, No murmurs Abdomen: Bowel Sounds Present, Soft, Non Tender, Non-Distended : No renal angle tenderness. No suprapubic tenderness. Extremities: No edema, Capillary Refill Less than 3 Seconds Skin: No rashes, No breakdown Musculoskeletal: Weakness of both lower extremities, right lower leg more than left lower leg at knee and hip joints, chronic. ROM restricted Neurological: Cranial nerves II-XII grossly intact, DTR 2+/4 and Symmetrical Psych/Mental Status: Normal Affect, Appropriate. Assessment & Plan Assessment/Plan (1) Acute exacerbation of chronic obstructive pulmonary disease (COPD): PLAN: This 80-year-old question gentleman admitted with shortness of breath, cough suspected to be from left lung base pneumonia probably pneumococcal pneumonia. Patient has COPD exacerbation from pneumonia and on bronchodilator schedule, IV Solu-Medrol, incentive spirometry and chest physiotherapy. Patient also has restrictive lung disease. He follows Dr. Daniels. Chest x-ray shows left lung infiltrate. Patient had surgery in the left lung. Currently on ceftriaxone and azithromycin. Urinary antigens, flu panel A AND B and rapid Covid antigen negative. Sputum culture ordered. Recent GI bleed, type II isolated gastric varices, portal hypertensive gastropathy: Patient is on Xarelto and monitor H&H and platelet count. Last H&H 8.12/07. Repeat H&H ordered Anemia of chronic disease and iron deficiency anemia probably from recent GI bleed Chronic A. fib on amiodarone and rivaroxaban. Rate is controlled Rheumatoid arthritis: Hold on Plaquenil and methotrexate as patient has pneumonia. VT prophylaxis: On rivaroxaban Hospital course and plan of management discussed with the patient and his present in the room Active Medications Acetaminophen (Acetaminophen 325 Mg Tablet) 650 mg PO Q6H PRN PRN PRN Reason: Pain Score 1-10/Temp > 100.7 F Albuterol Sulfate (Albuterol 2.5 Mg/3 Ml Vial.Neb.) 2.5 mg INHALATION Q2H PRN PRN PRN Reason: Shortness of Breath/Wheezing Albuterol/Ipratropium (Ipratropium/Albuterol Sulfate 3 Ml Ampul.Neb) 3 ml INHALATION Q4H.RT [facility] Last Admin: 11/16/21 10:28 Dose: 3 ml Documented by: Amiodarone HCl (Amiodarone 200 Mg Tablet) 200 mg PO DAILY [facility] Last Admin: 11/16/21 08:22 Dose: 200 mg Documented by: Artificial Tears (Dextran 70/He-Cell 15ml Bottle) 2 drp EACH EYE Q2H PRN PRN PRN Reason: Dry Eyes Last Admin: 11/15/21 20:08 Dose: 2 drp Documented by: Azelastine HCl (Azelastine Hcl Nasal.Sry) 1 spray NASAL BID [facility] Last Admin: 11/16/21 08:24 Dose: 1 spray Documented by: Calamine/Phenol (Menthol/Lanolin/Calamine/Znox 113 Gm Tube) 1 applic TOPICAL BID [facility]; Protocol Last Admin: 11/16/21 08:23 Dose: 1 applic Documented by: Calcium Carbonate (Calcium Carbonate 500 Mg Tablet) 500 mg PO BIDCM [facility] Last Admin: 11/16/21 08:21 Dose: 500 mg Documented by: Carvedilol (Carvedilol 12.5 Mg Tablet) 12.5 mg PO BID [facility] Last Admin: 11/16/21 08:22 Dose: 12.5 mg Documented by: Duloxetine HCl (Duloxetine Hcl 30 Mg Capsule) 30 mg PO QHS [facility] Last Admin: 11/15/21 20:07 Dose: 30 mg Documented by: Fluticasone Propionate (Fluticasone 0.05% 1 [place] Nasal.Sry) 1 spray NASAL BID [facility] Last Admin: 11/16/21 08:24 Dose: 1 spray Documented by: Folic Acid (Folic Acid 1 Mg Tablet) 1 mg PO DAILY [facility] Last Admin: 11/16/21 08:22 Dose: 1 mg Documented by: Furosemide (Furosemide 20 Mg Tablet) 20 mg PO DAILY [facility] Last Admin: 11/16/21 08:23 Dose: 20 mg Documented by: Guaifenesin (Guaifenesin 10 Ml Udc (200mg/10ml)) 20 ml PO Q4H PRN PRN PRN Reason: COUGH Last Admin: 11/16/21 02:02 Dose: 20 ml Documented by: Ceftriaxone Sodium 2 gm/ (Sodium Chloride) 50 mls @ 100 mls/hr IV Q24 [facility] Stop: 11/23/21 10:01 Last Infusion: 11/16/21 10:49 Dose: Infused Documented by: Azithromycin 500 mg/ Dextrose 255 mls @ 250 mls/hr IV Q24 [facility] Stop: 11/21/21 10:01 Last Infusion: 11/16/21 12:04 Dose: Infused Documented by: Sodium Chloride () 250 mls @ 15 mls/hr IV .[id number] PRN PRN Reason: Saline Flush Last Infusion: 11/16/21 10:54 Dose: 0 mls/hr Documented by: Sodium Chloride () 250 mls @ 15 mls/hr IV .[id number] PRN PRN Reason: Additional IVPB Infusion Lidocaine/Diphenhydr/Alum/Mg/Simeth (Bmx Liquid 180 Ml) 5 ml PO Q3H PRN PRN PRN Reason: oral pain Last Admin: 11/16/21 14:25 Dose: 5 ml Documented by: Losartan Potassium (Losartan Potassium 25 Mg Tablet) 25 mg PO DAILY [facility] Last Admin: 11/16/21 08:20 Dose: 25 mg Documented by: Nystatin (Nystatin Powder 15gm Bottle) 1 applic TOPICAL BID [facility]; Protocol Last Admin: 11/16/21 08:23 Dose: 1 applic Documented by: Pantoprazole Sodium (Pantoprazole Sodium 40 Mg Tablet) 40 mg PO DAILY [facility] Last Admin: 11/16/21 08:21 Dose: 40 mg Documented by: Prednisone (Prednisone 20 Mg Tablet) 40 mg PO BREAKFAST [facility] Stop: 11/21/21 08:01 Last Admin: 11/16/21 08:21 Dose: 40 mg Documented by: Rivaroxaban (Rivaroxaban 20 Mg Tablet) 20 mg PO DINNER JAVAN Sodium Chloride (0.9% Saline Lock 10 Ml Syringe) 10 - 40 ml IV UD PRN PRN Reason: SALINE FLUSH Last Admin: 11/16/21 10:14 Dose: 10 ml Documented by: Charges/Coding Visit Charges Inpatient E&M: 93695 Subs Hosp L2
[2021-11-16 11:36] LABS: BNP,B-Type NATRIURETIC PEPTIDE 74.3 pg/mL (0-100)
--- NOTE | 2021-11-16 12:05 | CASEMGMT ---
Addendum entered by Latoya Almazan 11/16/21 12:52: Telephone call to [facility], intake. Confirm to not offer aide services. Original Note: Social Work Met with patient and patient spouse, Altagracia in room. Introduced self and nephrology social worker role. Patient remembering this nephrology social worker from prior hospitalization. Patient was last admitted to [facility] on 11/06/21 - 11/09/21 with a discharge plan to [facility] private caro center. Patient reports to have discharge to home on 11/12/2021 with spouse and home health services through [facility]. Altagracia inquiring about possible option for home health aide to assist with showers in the home and reports to believe that the [facility] do not provide home health aides for showers. This nephrology social worker broached topic of home vs. SNF. Patient and Altagracia are undecided. Patient has only been home with Altagracia for 4 days and it has been a lot. This nephrology social worker collaborating with patient and Altagracia on the safest plan for patient and that most likely the safest plan is to return to a skilled nursing. This nephrology social worker also voicing understanding that the skilled nursing will most likely be private pay. Patient and Altagracia do not report to not be able to afford the skilled nursing but that we can't pay that for long. Active support provided. Therapy then entering the room to evaluate patient and make recommendations. This nephrology social worker making plan with patient and Altagracia to follow up later in day on status of discharge disposition decision. Will continue to follow. PARDEEP Cary
--- NOTE | 2021-11-16 14:07 | CASEMGMT ---
Social Work Following up with patient in room. Patient spouse not present. Patient reports to be open to going somewhere that I can afford and ask for patient spouse to be contacted. Telephone call to patient spouse, Altagracia. Altagracia reports to be undecided about senior care placement and plans to speak with daughter. Altagracia hopes to have decision about senior care placement vs. home with family. Social Work to continue to follow. Danielle Almazan MSW, SABRINA-S
[2021-11-16 15:02] LABS: Hematocrit 25.5 % (40-54); Hemoglobin 8.1 g/dL (13.0-16.5)
--- NOTE | 2021-11-16 15:39 | CASEMGMT ---
[facility] Readmission Note Previous Admission: 11/06/2021-11/09/2021 Diagnosis: GIB Pt admitted and had been in rehab after ORIF R spiral femur fx. Pt non wtbearing. Pt dx with GIB, had EGD. DC Disposition: [facility] Current Admission Diagnosis: exac COPD secondary to PNA Pt presented to ER from home after he desatted on 4L O2 to 84%. Pt normally on 3L cont. Pt has hx of afib, COPD, HTN, RA. Pt tested negative for COVID and influenza. Pt was started on atb and is back to baseline O2 of 3L. Pt has HHC through [facility] with SN. DC PLAN: Resumption of HHC vs SNF- TBD
[2021-11-16] MEDS: guaiFENesin/D-Methorphan TAB.SR.12H 1 TABLET PO ×2 (15:46→20:46)
[2021-11-16] MEDS: Rivaroxaban 20 MG Tablet PO (16:50)
[2021-11-16] MEDS: DULoxetine Hcl 30 MG Capsule PO (20:46)
[2021-11-17 02:19] VITALS: BP 137/75; PULSE 65; RESP 16; TEMP 36.7; O2SAT 96
[2021-11-17 07:17] LABS: Absolute Lymphocyte Count 1.23 X10^3/uL (0.83-4.51); Absolute Neutrophil Count 12.5 X10^3/uL (2.0-7.7); Basophil# 0.02 X10^3/uL; Basophil% 0.1 % (0-1); Hematocrit 27.1 % (40-54); Lymphocyte # 1.23 X10^3/ul (0.83-4.51); Lymphocyte % 7.9 % (19-41); Mean Corp Hgb Conc 29.5 g/dL (32-36); Mean Corpuscular Hgb 31.3 pg (27.0-32.0); Mean Corpuscular Volume 105.9 fL (80-94); Mean Platelet Vol. 9.7 fl (6.2-12.0); Monocyte# 1.56 X10^3/uL; Monocyte% 10.1 % (0-10); NRBC Flagged by Analyzer 0 % (0-5); Neutrophil # 12.54 X10^3/uL (2.7-7.7); Neutrophil % 80.9 % (47-70); POSITIVE DIFFERENTIAL YES; POSITIVE MORPHOLOGY YES; Platelet Count 321 K/mm3 (150-450); RBC Distribution Width CV 17.1 % (11.6-14.6); RBC Distribution Width SD 65.5 fl (35.1-43.9); Red Blood Count 2.56 M/mm3 (4.6-6.2); White Blood Count 15.5 K/mm3 (4.4-11.0)
[2021-11-17 07:26] LABS: Differential Indicated SCAN CRITERIA MET
[2021-11-17 07:36] LABS: Anion Gap 5 (5-15); BUN 20 mg/dL (7-18); BUN/Creat Ratio 25.3 RATIO (10-20); Calcium,Total 8.5 mg/dL (8.5-10.1); Chloride 96 mmol/L (98-107); Creatinine, Serum 0.79 mg/dL (0.70-1.30); EST Glomerular Filtration Rate 100 mL/min (>60); Est Glom Filt Rate - Afr Amer 121 mL/min (>60); Estimated Creatinine Clearance 71.13 ml/min; Glucose 128 mg/dL (74-106); Potassium 3.7 mmol/L (3.5-5.1); Sodium Level 139 mmol/L (136-145)
[2021-11-17] MEDS: Calcium Carbonate 500 MG Tablet PO (07:56)
[2021-11-17] MEDS: predniSONE 20 MG Tablet 40 MG PO (07:57)
[2021-11-17 08:41] VITALS: BP 129/62; PULSE 80; RESP 18; TEMP 36.3; O2SAT 98
[2021-11-17 08:42] LABS: Anisocytosis 1+
[2021-11-17] MEDS: Menthol/Lanolin/Calamine/Znox 113 GM Tube 1 APPLIC TOPICAL (09:51)
[2021-11-17] MEDS: Azelastine HCl NASAL.SRY 1 SPRAY NASAL (09:51)
--- NOTE | 2021-11-17 10:07 | CASEMGMT ---
Addendum entered by Yvonne Mullen 11/17/21 13:26: [facility] can take pt private pay, they did speak w/. SW completed hospital exemption, faxed this along with all discharge instructions to [facility]. [facility] set up a 3pm ambulance w/Physicians. SW let pt, , bedside RN, and Tabby at [facility] know time of pickup. No further needs, pt going to [facility], private pay, for a convalescent stay. 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 SW spoke w/pt, he states to call his about where to go. SW called , she states to send a referral to [facility]. Pt was there before private pay. She already spoke w/Tre and made plans for pt to return private pay. SW explained will fax referral and let her know. SW faxed referral, called [facility], message left for Chel to call SW back. [facility] will continue to follow. PARDEEP Aguirre
[2021-11-17] MEDS: Ipratropium/Albuterol Sulfate 3 ML AMPUL.NEB INHALATION (10:21)
[2021-11-17 10:22] VITALS: PULSE 78; RESP 18
[2021-11-17] MEDS: Furosemide 20 MG Tablet PO (10:30)
[2021-11-17] MEDS: guaiFENesin/D-Methorphan TAB.SR.12H 1 TABLET PO (10:30)
[2021-11-17] MEDS: Folic Acid 1 MG Tablet PO (10:30)
[2021-11-17] MEDS: Pantoprazole Sodium 40 MG Tablet PO (10:30)
[2021-11-17] MEDS: Nystatin Powder 15gm Bottle 1 APPLIC TOPICAL (10:30)
[2021-11-17] MEDS: Carvedilol 12.5 MG Tablet PO (10:31)
[2021-11-17] MEDS: Amiodarone 200 MG Tablet PO (10:31)
[2021-11-17] MEDS: Losartan Potassium 25 MG Tablet PO (10:31)
[2021-11-17] MEDS: Fluticasone 0.05% 1 SPRAY NASAL.SRY NASAL (10:31)
--- NOTE | 2021-11-17 12:15 | DCINST_ITS ---
Discharge Instructions Diet Discharge Diet: Low fat / Low cholesterol Activity Discharge Activity: Return to Normal Activity Dressing / Incision Call your doctor if you observe: Fever of 101 or Higher, Shortness of breath and Chest pain Follow Up Care Test Results: Test results from this visit will be discussed in further detail at your follow-up appointment, if applicable. Discharge Plan Admission Admit Date/Time: 11/15/21 16:53 Primary Reason for Your Visit: Pneumonia Attending Provider: Yany Rush Primary Care Provider: Semaj Concepcion Discharge Orders/Prescriptions Prescriptions: New nystatin [Nyamyc] 100,000 unit/gram Powder 1 applic topical BID Qty: 0 RF: 0 Mucus DM 30-600 mg Tablet Extended Release 12 Hr 1 tab PO BID Qty: 0 RF: 0 cefdinir 300 mg capsule 300 mg PO BID Qty: 10 RF: 0 prednisone 10 mg tablet See Taper mg PO DAILY Qty: 30 RF: 0 Continued ferrous sulfate 325 mg (65 mg iron) tablet,delayed release (DR/EC) 325 mg PO DAILY RF: 0 furosemide [Lasix] 40 mg tablet 20 mg PO DAILY RF: 0 duloxetine [Cymbalta] 30 mg capsule,delayed release(DR/EC) 30 mg PO QHS RF: 0 methotrexate sodium 2.5 MG tablet 8 tab PO MO RF: 0 hydroxychloroquine 200 MG tablet 200 mg PO BID RF: 0 cholecalciferol (vitamin D3) 1,000 UNIT tablet 2,000 unit PO DAILY@0800 RF: 0 losartan 25 mg Tablet 25 mg PO DAILY RF: 0 Systane Complete 0.6 % Drops 2 drp EACH EYE Q2H PRN PRN (Reason: Dry Eyes) RF: 0 lidocaine HCl [Lidocaine Viscous] 2 % Solution 5 ml PO Q3H PRN PRN (Reason: oral pain) Qty: 300 RF: 0 carvedilol 12.5 mg tablet 12.5 mg PO BID RF: 0 sennosides-docusate sodium [Senna Plus] 8.6-50 mg tablet 1 tab PO BID RF: 0 psyllium Packet 1 packet PO DAILY RF: 0 folic acid 400 mcg Tablet 0.4 mg PO DAILY RF: 0 omeprazole 40 mg capsule,delayed release(DR/EC) 40 mg PO DAILY RF: 0 amiodarone 200 mg tablet 200 mg PO DAILY RF: 0 calcium carbonate 500 MG tablet,chewable 500 mg PO BIDCM RF: 0 fluticasone propionate 50 mcg/actuation spray,suspension 1 spray INTRANASAL BID RF: 0 azelastine 0.15 % (205.5 mcg) spray,non-aerosol 1 spray INTRANASAL BID RF: 0 No Action Xarelto 20 mg tablet 20 mg PO DAILY RF: 0 Referrals / Follow Up: Semaj Concepcion MD [Primary Care Provider] - Disposition Disposition (needs filled in before D/C Order can be placed): Senior Care Facility
--- NOTE | 2021-11-17 12:36 | TREXTCAR_ITS ---
Documented by User: JUANA Brooks 11/17/21 12:40 Diet 11/15/21 19:19 Diet: Cardiac - Heart Healthy Food consistency:: Mechanical (Minced/Moist) Liquid Consistency:: Regular/Thin Type of Dietary Supplement:: Ensure Compact Is pt able to select menu?: No Routine Orders/Code Status Enema Type: Fleetz Enema Frequency: Daily PRN Suppository Type: Dulcolax 10mg Suppository Frequency: Daily PRN O2 Liters per Minute: 3 O2 Frequency: Continuous Code Status: Full Code Wound(s) rt hip: Wound Type: Surgical Incision Suggestions for Active Care Change Position every (hours): 2 Times a day to sit in chair: 3 Therapies Weight Bearing: Full weight bearing Physical Therapy: Eval and Treat Occupational Therapy: Eval and Treat Problem/Diagnosis (1) Acute exacerbation of chronic obstructive pulmonary disease (COPD): Status: Chronic Allergies/Procedures Done in Hospital Allergies Penicillins Allergy (Severe, Verified 11/15/21 13:04) rash Procedures: None Type of Care/Length of Stay Estimated LOS: Convalescent Care Less Than 30 days Type of Care Needed: Skilled Rehab Potential: Good Prognosis: Good Additional Orders/Day of Discharge Day of Discharge: 11/17/21 Dietary and Speech Recommendations Dietitian Recommendations/Changes: Will continue diet as ordered w/ ensure compact at meals Discharge Plan Admission Admit Date/Time: 11/15/21 16:53 Primary Reason for Your Visit: Pneumonia Attending Provider: Yany Rush Primary Care Provider: Semaj Concepcion Discharge Orders/Prescriptions Prescriptions: New nystatin [Nyamyc] 100,000 unit/gram Powder 1 applic topical BID Qty: 0 RF: 0 Mucus DM 30-600 mg Tablet Extended Release 12 Hr 1 tab PO BID Qty: 0 RF: 0 cefdinir 300 mg capsule 300 mg PO BID Qty: 10 RF: 0 prednisone 10 mg tablet See Taper mg PO DAILY Qty: 30 RF: 0 Continued ferrous sulfate 325 mg (65 mg iron) tablet,delayed release (DR/EC) 325 mg PO DAILY RF: 0 furosemide [Lasix] 40 mg tablet 20 mg PO DAILY RF: 0 duloxetine [Cymbalta] 30 mg capsule,delayed release(DR/EC) 30 mg PO QHS RF: 0 methotrexate sodium 2.5 MG tablet 8 tab PO MO RF: 0 hydroxychloroquine 200 MG tablet 200 mg PO BID RF: 0 cholecalciferol (vitamin D3) 1,000 UNIT tablet 2,000 unit PO DAILY@0800 RF: 0 losartan 25 mg Tablet 25 mg PO DAILY RF: 0 Systane Complete 0.6 % Drops 2 drp EACH EYE Q2H PRN PRN (Reason: Dry Eyes) RF: 0 lidocaine HCl [Lidocaine Viscous] 2 % Solution 5 ml PO Q3H PRN PRN (Reason: oral pain) Qty: 300 RF: 0 carvedilol 12.5 mg tablet 12.5 mg PO BID RF: 0 sennosides-docusate sodium [Senna Plus] 8.6-50 mg tablet 1 tab PO BID RF: 0 psyllium Packet 1 packet PO DAILY RF: 0 folic acid 400 mcg Tablet 0.4 mg PO DAILY RF: 0 omeprazole 40 mg capsule,delayed release(DR/EC) 40 mg PO DAILY RF: 0 amiodarone 200 mg tablet 200 mg PO DAILY RF: 0 calcium carbonate 500 MG tablet,chewable 500 mg PO BIDCM RF: 0 fluticasone propionate 50 mcg/actuation spray,suspension 1 spray INTRANASAL BID RF: 0 azelastine 0.15 % (205.5 mcg) spray,non-aerosol 1 spray INTRANASAL BID RF: 0 No Action Xarelto 20 mg tablet 20 mg PO DAILY RF: 0 Referrals / Follow Up: Semaj Concepcion MD [Primary Care Provider] - Disposition Disposition (needs filled in before D/C Order can be placed): Senior Living Facility Documented by User: Dr. Yany Rush DO 11/17/21 12:49 Routine Orders/Code Status O2 Liters per Minute: 3 O2 Frequency: Continuous Routine Lab Work: CBC and BMP Code Status: Full Code Therapies Weight Bearing: Full weight bearing Physical Therapy: Eval and Treat Occupational Therapy: Eval and Treat Speech Therapy: Eval and Treat Allergies/Procedures Done in Hospital Allergies Penicillins Allergy (Severe, Verified 11/15/21 13:04) rash Procedures: None Type of Care/Length of Stay Estimated LOS: Convalescent Care Less Than 30 days Type of Care Needed: Skilled Rehab Potential: Fair Prognosis: Fair Additional Orders/Day of Discharge Day of Discharge: 11/17/21 Discharge Plan Admission Admit Date/Time: 11/15/21 16:53 Primary Reason for Your Visit: Pneumonia Attending Provider: Yany Rush Primary Care Provider: Semaj Concepcion Discharge Orders/Prescriptions Prescriptions: New nystatin [Nyamyc] 100,000 unit/gram Powder 1 applic topical BID Qty: 0 RF: 0 Mucus DM 30-600 mg Tablet Extended Release 12 Hr 1 tab PO BID Qty: 0 RF: 0 cefdinir 300 mg capsule 300 mg PO BID Qty: 10 RF: 0 prednisone 10 mg tablet See Taper mg PO DAILY Qty: 30 RF: 0 Continued ferrous sulfate 325 mg (65 mg iron) tablet,delayed release (DR/EC) 325 mg PO DAILY RF: 0 furosemide [Lasix] 40 mg tablet 20 mg PO DAILY RF: 0 duloxetine [Cymbalta] 30 mg capsule,delayed release(DR/EC) 30 mg PO QHS RF: 0 methotrexate sodium 2.5 MG tablet 8 tab PO MO RF: 0 hydroxychloroquine 200 MG tablet 200 mg PO BID RF: 0 cholecalciferol (vitamin D3) 1,000 UNIT tablet 2,000 unit PO DAILY@0800 RF: 0 losartan 25 mg Tablet 25 mg PO DAILY RF: 0 Systane Complete 0.6 % Drops 2 drp EACH EYE Q2H PRN PRN (Reason: Dry Eyes) RF: 0 lidocaine HCl [Lidocaine Viscous] 2 % Solution 5 ml PO Q3H PRN PRN (Reason: oral pain) Qty: 300 RF: 0 carvedilol 12.5 mg tablet 12.5 mg PO BID RF: 0 sennosides-docusate sodium [Senna Plus] 8.6-50 mg tablet 1 tab PO BID RF: 0 psyllium Packet 1 packet PO DAILY RF: 0 folic acid 400 mcg Tablet 0.4 mg PO DAILY RF: 0 omeprazole 40 mg capsule,delayed release(DR/EC) 40 mg PO DAILY RF: 0 amiodarone 200 mg tablet 200 mg PO DAILY RF: 0 calcium carbonate 500 MG tablet,chewable 500 mg PO BIDCM RF: 0 fluticasone propionate 50 mcg/actuation spray,suspension 1 spray INTRANASAL BID RF: 0 azelastine 0.15 % (205.5 mcg) spray,non-aerosol 1 spray INTRANASAL BID RF: 0 No Action Xarelto 20 mg tablet 20 mg PO DAILY RF: 0 Referrals / Follow Up: Semaj Concepcion MD [Primary Care Provider] - Disposition Disposition (needs filled in before D/C Order can be placed): Senior Living Facility
[2021-11-17] MEDS: BMX LIQUID 180 ML PO (12:40)
--- NOTE | 2021-11-17 13:39 | CASEMGMT ---
Pt screened with [facility] Palliative Care Screening Tool due to readmission. Pt met criteria. No order received, pt to be dc'd today.
[2021-11-17 13:57] VITALS: BP 123/65; PULSE 63; RESP 18; TEMP 36.3; O2SAT 98
--- NOTE | 2021-11-17 14:55 | DS.PCM_ITS ---
Documented by User: JUANA Brooks 11/17/21 14:59 Providers Date of Admission: 11/15/21 Primary Care Physician: Dr. Semaj Concepcion MD Reason For Visit: PNEUMONIA Diagnosis Discharge Diagnosis (1) Acute exacerbation of chronic obstructive pulmonary disease (COPD): Status: Chronic Code(s): J44.1 - Chronic obstructive pulmonary disease with (acute) exacerbation Medications at Discharge Home Medications hydroxychloroquine 200 mg PO BID 11/07/18 methotrexate sodium 8 tab PO MO 11/07/18 cholecalciferol (vitamin D3) 2,000 unit PO DAILY@0800 12/13/18 ferrous sulfate 325 mg (65 mg iron) tablet,delayed release 325 mg PO DAILY tab 03/11/19 furosemide 40 mg tablet 20 mg PO DAILY tab 12/25/19 duloxetine 30 mg capsule,delayed release 30 mg PO QHS cap 05/26/21 losartan 25 mg PO DAILY 09/21/21 Systane Complete 2 drp EACH EYE Q2H PRN PRN 11/06/21 lidocaine HCl [Lidocaine Viscous] 5 ml PO Q3H PRN PRN #300 ml 11/09/21 Xarelto 20 mg PO DAILY 11/15/21 amiodarone 200 mg PO DAILY 11/15/21 azelastine 1 spray INTRANASAL BID 11/15/21 calcium carbonate 500 mg PO BIDCM 11/15/21 carvedilol 12.5 mg PO BID 11/15/21 fluticasone propionate 1 spray INTRANASAL BID 11/15/21 folic acid 0.4 mg PO DAILY 11/15/21 omeprazole 40 mg PO DAILY 11/15/21 psyllium 1 packet PO DAILY 11/15/21 sennosides-docusate sodium [Senna Plus] 1 tab PO BID 11/15/21 cefdinir 300 mg PO BID #10 cap 11/17/21 dextromethorphan-guaifenesin [Mucus DM] 1 tab PO BID #0 tab 11/17/21 nystatin [Nyamyc] 1 applic TOPICAL BID #0 g 11/17/21 prednisone See Taper PO DAILY #30 tab 11/17/21 Hospital Course Operations None Procedures None Summary of Care Provided Minutes Spent on Discharge: 35 Hospital Course: Patient is an 81-year-old male who originally presented to the ER with complaints of shortness of breath. Patient reported that he is currently on 3 L nasal cannula oxygen at baseline but feels short of breath and is requiring increased oxygen. Patient was admitted on 4 L nasal cannula oxygen. Patient was provided treatment for pneumonia and acute COPD exacerbation which included IV azithromycin and Rocephin as well as p.o. prednisone. Patient was also provided with scheduled and as needed breathing treatments. Patient will be discharged to a nursing home facility due to increased weakness and need for continued physical and occupational therapy. Patient will be discharged on p.o. Omnicef as well as a prednisone taper. Physical Exam Const alert and oriented x3 General Appearance: cooperative HEENT normocephalic and head/scalp atraumatic Eyes conjunctivae normal and no scleral icterus Neck supple General: trachea midline Resp normal respiratory effort and normal air movement Auscultation: diminished lung sounds Cardio regular rate, regular rhythm, S1 normal heart sound, S2 normal heart sound and peripheral pulses 2+ throughout GI normal to inspection, nondistended, normoactive bowel sounds, soft to palpation and non-tender Extremity normal capillary refill and no clubbing, cyanosis or edema General Extremity: no tenderness to palpation of joints or extremities Skin skin turgor normal General Skin Exam: no breakdown Lesions: no lesions Rashes: no rashes Neuro oriented x3, moves all extremities, no focal motor deficits and no sensory deficits noted Motor Exam: general weakness Psych affect normal Appearance: appropriate Medical Records Data Medical Nutrition Assessment Dietitian: Malnutrition Criteria Met Start: 11/16/21 14:12 Freq: Status: Active Protocol: Document 11/16/21 14:12 [facility] (Rec: 11/16/21 14:12 [facility] [id number]) Nutrition Malnutrition Evidence of Malnutrition Exists Yes Evidenced By Suboptimal Energy Intake ( Severe),Weight Loss (Severe) Clinical Problem Acute Disease or Injury Related Malnutrition Etiology related to pt with acute illness, infection in mouth impeding pt from wearing dentures and having decreased po intake therefore making it difficult to consume adequate nutrition to meet est needs Signs/Symptoms as evidenced by need for mech altered diet for ease of eating, <50% po intake x 3 wks and 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 Problem Recommendation Dietitian Recommendations/Changes Will continue diet as ordered w/ ensure compact at meals Weight / BMI Weight Weight: 276 lb 6.4 oz Body Mass Index (BMI) 33.6 ABG / Lab / Microbiology Data Result Diagrams: 11/17/21 06:20 11/17/21 06:20 Laboratory: Laboratory Results - last 24 hr 11/16/21 14:50: Hgb 8.1 L, Hct 25.5 L 11/17/21 06:20: WBC 15.5 H, RBC 2.56 L, Hgb 8.0 L, Hct 27.1 L, MCV 105.9 H D, MCH 31.3, MCHC 29.5 L D, RDW Std Deviation 65.5 H, RDW Coeff of Deandre 17.1 H, Plt Count 321, MPV 9.7, Immature Gran % (Auto) 1.000 H, Neut % (Auto) 80.9 H, Lymph % (Auto) 7.9 L, [place] % (Auto) 10.1 H, Eos % (Auto) 0.0, Baso % (Auto) 0.1, Absolute Neuts (auto) 12.5 H, Absolute Lymphs (auto) 1.23, Nucleated RBC % 0, Differential Comment COMMENT, Diff Path Review May foll, Anisocytosis 1+ 11/17/21 06:20: Sodium 139, Potassium 3.7, Chloride 96 L, Carbon Dioxide 38.0 H, Anion Gap 5, BUN 20 H, Creatinine 0.79, Estim Creat Clear Calc 71.13, Est GFR (MDRD) Af Amer 121, Est GFR (MDRD) Non-Af 100, BUN/Creatinine Ratio 25.3 H, Glucose 128 H, Calcium 8.5 Microbiology: Microbiology 11/15/21 14:10 Blood Culture (Wb) - Right Hand Blood Culture - Preliminary No growth in 48 hours. 11/17/21 12:35 Nasal Secretion SARS-CoV-2 Antigen (Rapid) - Final 11/15/21 23:00 Urine, Clean Catch Legionella Antigen - Final 11/15/21 23:00 Urine, Clean Catch Streptococcus pneumoniae Antigen (M - Final 11/15/21 14:55 Nasal Secretion SARS-CoV-2 Antigen (Rapid) - Final 11/15/21 14:10 Mucosa - Nasopharyngeal Influenza Types A,B Direct FA (ANUSHA) - Final D/C Instructions Discharge Diet: Low fat / Low cholesterol Call your doctor if you observe: Fever of 101 or Higher, Shortness of breath and Chest pain Meaningful Use Info Meaningful Use Diagnoses (Choose all that apply): None applicable Discharge Plan Admission Admit Date/Time: 11/15/21 16:53 Primary Reason for Your Visit: Pneumonia Attending Provider: Yany Rush Primary Care Provider: Semaj Concepcion Discharge Orders/Prescriptions Prescriptions: New nystatin [Nyamyc] 100,000 unit/gram Powder 1 applic topical BID Qty: 0 RF: 0 Mucus DM 30-600 mg Tablet Extended Release 12 Hr 1 tab PO BID Qty: 0 RF: 0 cefdinir 300 mg capsule 300 mg PO BID Qty: 10 RF: 0 prednisone 10 mg tablet See Taper mg PO DAILY Qty: 30 RF: 0 Continued ferrous sulfate 325 mg (65 mg iron) tablet,delayed release (DR/EC) 325 mg PO DAILY RF: 0 furosemide [Lasix] 40 mg tablet 20 mg PO DAILY RF: 0 duloxetine [Cymbalta] 30 mg capsule,delayed release(DR/EC) 30 mg PO QHS RF: 0 methotrexate sodium 2.5 MG tablet 8 tab PO MO RF: 0 hydroxychloroquine 200 MG tablet 200 mg PO BID RF: 0 cholecalciferol (vitamin D3) 1,000 UNIT tablet 2,000 unit PO DAILY@0800 RF: 0 losartan 25 mg Tablet 25 mg PO DAILY RF: 0 Systane Complete 0.6 % Drops 2 drp EACH EYE Q2H PRN PRN (Reason: Dry Eyes) RF: 0 lidocaine HCl [Lidocaine Viscous] 2 % Solution 5 ml PO Q3H PRN PRN (Reason: oral pain) Qty: 300 RF: 0 carvedilol 12.5 mg tablet 12.5 mg PO BID RF: 0 sennosides-docusate sodium [Senna Plus] 8.6-50 mg tablet 1 tab PO BID RF: 0 psyllium Packet 1 packet PO DAILY RF: 0 folic acid 400 mcg Tablet 0.4 mg PO DAILY RF: 0 omeprazole 40 mg capsule,delayed release(DR/EC) 40 mg PO DAILY RF: 0 amiodarone 200 mg tablet 200 mg PO DAILY RF: 0 calcium carbonate 500 MG tablet,chewable 500 mg PO BIDCM RF: 0 fluticasone propionate 50 mcg/actuation spray,suspension 1 spray INTRANASAL BID RF: 0 azelastine 0.15 % (205.5 mcg) spray,non-aerosol 1 spray INTRANASAL BID RF: 0 No Action Xarelto 20 mg tablet 20 mg PO DAILY RF: 0 Referrals / Follow Up: Semaj Concepcion MD [Primary Care Provider] - Disposition Disposition (needs filled in before D/C Order can be placed): Long-Term Facility Documented by User: Dr. Yany Rush DO 11/17/21 15:50 Providers Date of Admission: 11/15/21 Reason For Visit: PNEUMONIA Medications at Discharge Home Medications hydroxychloroquine 200 mg PO BID 11/07/18 methotrexate sodium 8 tab PO MO 11/07/18 cholecalciferol (vitamin D3) 2,000 unit PO DAILY@0800 12/13/18 ferrous sulfate 325 mg (65 mg iron) tablet,delayed release 325 mg PO DAILY tab 03/11/19 furosemide 40 mg tablet 20 mg PO DAILY tab 12/25/19 duloxetine 30 mg capsule,delayed release 30 mg PO QHS cap 05/26/21 losartan 25 mg PO DAILY 09/21/21 Systane Complete 2 drp EACH EYE Q2H PRN PRN 11/06/21 lidocaine HCl [Lidocaine Viscous] 5 ml PO Q3H PRN PRN #300 ml 11/09/21 Xarelto 20 mg PO DAILY 11/15/21 amiodarone 200 mg PO DAILY 11/15/21 azelastine 1 spray INTRANASAL BID 11/15/21 calcium carbonate 500 mg PO BIDCM 11/15/21 carvedilol 12.5 mg PO BID 11/15/21 fluticasone propionate 1 spray INTRANASAL BID 11/15/21 folic acid 0.4 mg PO DAILY 11/15/21 omeprazole 40 mg PO DAILY 11/15/21 psyllium 1 packet PO DAILY 11/15/21 sennosides-docusate sodium [Senna Plus] 1 tab PO BID 11/15/21 cefdinir 300 mg PO BID #10 cap 11/17/21 dextromethorphan-guaifenesin [Mucus DM] 1 tab PO BID #0 tab 11/17/21 nystatin [Nyamyc] 1 applic TOPICAL BID #0 g 11/17/21 prednisone See Taper PO DAILY #30 tab 11/17/21 Hospital Course Operations None Summary of Care Provided Minutes Spent on Discharge: 36 Hospital Course: Mr. Huerta is an 81-year-old white male who presented to the emergency department on 11/15/2021 with a chief complaint of shortness of breath. It had evidently been a problem for approximately 24 hours prior to presentation. He had a recent admission for GI bleed due to esophageal varices. He was discharged to a rehab facility and had been there up until this weekend at which time became short of breath and represented to the emergency department. At baseline the patient is on 3 L of oxygen but had increasing needs up to 4 L to maintain oxygen saturations greater than 92%. In the emergency department he was found to have a leukocytosis of 17,000 and his pulse ox was down to 84% while on his 4 L. Chest x-ray was performed and showed a left lower lobe pneumonia and he was given a dose of levofloxacin in the emergency department. He was placed on azithromycin and ceftriaxone as well as IV Solu-Medrol admitted to the medical floor. Covid testing was negative. Strep pneumo and Legionella antigens were negative. Influenza a and B were negative as were blood cultures drawn on admission. His clinical status improved significantly by 11/17/2021 but he had significant problems with mobility and therefore required skilled facility at discharge. His antibiotics were narrowed to Omnicef and the patient was to complete this for another 4 days. He was also discharged on prednisone 40 mg with a taper until completion. The patient was unable to produce a sputum and therefore culture was not able to be obtained. On the day of discharge she was on 3 L nasal cannula with an oxygen saturation of 94 to 98% on his baseline oxygen. Incentive spirometer and Acapella were encouraged to be continued upon discharge. His hemoglobin remained stable despite his recent diagnosis of esophageal bleed and continuation of Xarelto. He was able to be discharged to [facility] on 11/17/2021 in stable condition for continued rehab. Discharge diagnoses: Acute on chronic hypoxic and hypercapnic respiratory failure Acute left lower lobe pneumonia Leukocytosis Chronic macrocytic anemia-stable Recent variceal bleed Gastric varices Portal hypertensive gastropathy Chronic atrial fibrillation Rheumatoid arthritis GERD Hypertension Depression Obesity Physical Exam Const alert, oriented x3 and no apparent distress Constitutional Narrative: Obese, elderly white male sitting up in bed watching television, appears comfortable, nontoxic, currently on 3 L nasal cannula which is his baseline General Appearance: cooperative and well developed HEENT normocephalic and moist oral mucous membranes HEENT Narrative: Mallampati is 2, no thrush, dentition is poor Eyes PERRL and EOMs intact bilaterally Eyes Narrative: No scleral icterus, mild conjunctival pallor Neck supple, no JVD and thyroid normal General: trachea midline Resp normal respiratory effort, normal air movement and clear to auscultation bilaterally Resp Narrative: Diffusely diminished but clear Auscultation: Negative for rales, rhonchi or wheezes Cardio regular rate, regular rhythm, S1 normal heart sound, S2 normal heart sound, no murmurs, no rub and no gallops GI normal to inspection, nondistended, normoactive bowel sounds, soft to palpation, non-tender and non-distended Palpation: no hepatosplenomegaly Extremity no clubbing, cyanosis or edema Skin skin turgor normal General Skin Exam: no breakdown Lesions: no lesions Rashes: no rashes Neuro CN's II-XII intact bilaterally, no focal motor deficits and no sensory deficits noted Speech: speech normal Motor Exam: general weakness Psych affect normal Psych Narrative: Very pleasant but frustrated he needs to go to a facility for rehab Appearance: appropriate ABG / Lab / Microbiology Data Result Diagrams: 11/17/21 06:20 11/17/21 06:20 Discharge Plan Admission Admit Date/Time: 11/15/21 16:53 Primary Reason for Your Visit: Pneumonia Attending Provider: Yany Rush Primary Care Provider: Semaj Concepcion Discharge Orders/Prescriptions Prescriptions: New nystatin [Nyamyc] 100,000 unit/gram Powder 1 applic topical BID Qty: 0 RF: 0 Mucus DM 30-600 mg Tablet Extended Release 12 Hr 1 tab PO BID Qty: 0 RF: 0 cefdinir 300 mg capsule 300 mg PO BID Qty: 10 RF: 0 prednisone 10 mg tablet See Taper mg PO DAILY Qty: 30 RF: 0 Continued ferrous sulfate 325 mg (65 mg iron) tablet,delayed release (DR/EC) 325 mg PO DAILY RF: 0 furosemide [Lasix] 40 mg tablet 20 mg PO DAILY RF: 0 duloxetine [Cymbalta] 30 mg capsule,delayed release(DR/EC) 30 mg PO QHS RF: 0 methotrexate sodium 2.5 MG tablet 8 tab PO MO RF: 0 hydroxychloroquine 200 MG tablet 200 mg PO BID RF: 0 cholecalciferol (vitamin D3) 1,000 UNIT tablet 2,000 unit PO DAILY@0800 RF: 0 losartan 25 mg Tablet 25 mg PO DAILY RF: 0 Systane Complete 0.6 % Drops 2 drp EACH EYE Q2H PRN PRN (Reason: Dry Eyes) RF: 0 lidocaine HCl [Lidocaine Viscous] 2 % Solution 5 ml PO Q3H PRN PRN (Reason: oral pain) Qty: 300 RF: 0 carvedilol 12.5 mg tablet 12.5 mg PO BID RF: 0 sennosides-docusate sodium [Senna Plus] 8.6-50 mg tablet 1 tab PO BID RF: 0 psyllium Packet 1 packet PO DAILY RF: 0 folic acid 400 mcg Tablet 0.4 mg PO DAILY RF: 0 omeprazole 40 mg capsule,delayed release(DR/EC) 40 mg PO DAILY RF: 0 amiodarone 200 mg tablet 200 mg PO DAILY RF: 0 calcium carbonate 500 MG tablet,chewable 500 mg PO BIDCM RF: 0 fluticasone propionate 50 mcg/actuation spray,suspension 1 spray INTRANASAL BID RF: 0 azelastine 0.15 % (205.5 mcg) spray,non-aerosol 1 spray INTRANASAL BID RF: 0 No Action Xarelto 20 mg tablet 20 mg PO DAILY RF: 0 Referrals / Follow Up: Semaj Concepcion MD [Primary Care Provider] - Disposition Disposition (needs filled in before D/C Order can be placed): Long-Term Facility Charges/Coding Visit Charges Inpatient E&M: 34042 SNF Disch >30 Min
[2021-11-19 09:56] LABS: Pathologist Review Reviewed
== END 2021-11-17 15:04 | disposition skilled nursing facility (03) | DRG 190 ==
LOC: ED 16:00 → MS3 17:26
PROVIDERS: Internal Medicine; Nurse Practitioner Family; Emergency Provider Emergency Medicine; PCP Family Medicine; Visit Provider Internal Medicine
DX: J44.1 Chronic obstructive pulmonary disease with (acute) exacerbation (principal); J15.3 Pneumonia due to streptococcus, group B; J96.22 Acute and chronic respiratory failure with hypercapnia; J96.21 Acute and chronic respiratory failure with hypoxia; I48.20 Chronic atrial fibrillation, unspecified; K76.6 Portal hypertension; I10 Essential (primary) hypertension; M06.9 Rheumatoid arthritis, unspecified; J44.0 Chronic obstructive pulmonary disease with (acute) lower respiratory infection; B95.1 Streptococcus, group B, as the cause of diseases classified elsewhere; D50.9 Iron deficiency anemia, unspecified; D53.9 Nutritional anemia, unspecified; I86.4 Gastric varices; K21.9 Gastro-esophageal reflux disease without esophagitis; E66.9 Obesity, unspecified; F32.A Depression, unspecified; K31.89 Other diseases of stomach and duodenum; Z68.37 Body mass index [BMI] 37.0-37.9, adult; Z80.0 Family history of malignant neoplasm of digestive organs; Z80.3 Family history of malignant neoplasm of breast; Z88.0 Allergy status to penicillin; Z96.641 Presence of right artificial hip joint; Z90.49 Acquired absence of other specified parts of digestive tract
CPT/HCPCS: 36415; 71045; 80048; 80053; 83605; 83880; 84484; 85014; 85018; 85025; 87040; 87426; 87449; 87804; 92526; 92610; 93005; 94640; 94667; 94668; 97110; 97162; 97166; 97802; 99285; J7050; A4216; J0696

== ENCOUNTER 2022-01-20 11:19 | Inpatient (IN) | payer MEDICARE, BC, SELFPAY ==
[2022-01-20] VITALS (14 sets, daily range): BP systolic 128–161; BP diastolic 60–90; PULSE 71–86; RESP 16–28; TEMP 36.5–37.1; O2SAT 94–98; BMI 36.6; BMI 33.7
--- NOTE | 2022-01-20 12:00 | RAD_ITS ---
STUDY: X-RAY CHEST REASON FOR EXAM: Male, 81 years old. Cough/sob/copd TECHNIQUE: Single AP portable view of the chest. COMPARISON: Comparison is made with prior study dated 11/15/2021. FINDINGS: EKG electrodes are seen. There now is evidence of complete opacification of the left hemithorax with loss of volume with shift of the heart and mediastinal structures to the left hemithorax suggestive of a combination of pleural effusion with a loss of volume in the left lung. Mild increased markings at the right lung base. Normal size heart. Normal mediastinum and spring. Normal visualized pulmonary arteries. Normal visualized aortic arch and descending thoracic aorta. There are diffuse degenerative changes of the visualized thoracic spine. Normal visualized ribs, clavicles, and shoulders. There is no demonstrated abnormality of the visualized soft tissue structures of the upper abdomen. RAD/Chest 1 View (Portable) IMPRESSION: Complete opacification of left hemithorax with shift of the heart and mediastinal structures to the left side suggestive of a combination of a left pleural effusion with underlying volume loss of the left lung. Electronically Signed: Donaldo Wyatt MD at 12:56 EST ,
--- NOTE | 2022-01-20 12:00 | EKG12_ITS ---
Test Reason : BRAYCARDIA Blood Pressure : / mmHG Vent. Rate : 076 BPM Atrial Rate : 076 BPM P-R Int : 120 ms QRS Dur : 104 ms QT Int : 382 ms P-R-T Axes : -11 -05 092 degrees QTc Int : 429 ms Normal sinus rhythm T wave abnormality, consider lateral ischemia Abnormal ECG Confirmed by BLADIMIR SHIPMAN, NIKA ([id number]), editor city RENATA HANDY ([id number]) on 01/21/2022 9:21:33 AM Referred By: BB/PC Confirmed By:NIKA GARRISON MD
--- NOTE | 2022-01-20 12:01 | EX.ED.DYSGE1 ---
HPI History of Present Illness Chief Complaint: Edema Informant: patient Narrative Narrative: Patient sent to the ED for evaluation of bradycardia. His heart rate is currently 76. and patient state that his heart rate was in the 40s, sometimes the high 30s, all day yesterday every time they checked, including with continuous pulse oximetry monitoring, and this morning prior to arrival here. He states when his heart rate was low, he was feeling weaker and more short of breath than usual. He has COPD, he is on between 3-5 L of oxygen all the time, 3 when he is resting 5 when he is exerting himself or getting up out of his chair. He has been in and out of assisted in hospital for the last 5 months or more. The last time he was admitted was for pneumonia a month or so ago. He has been off antibiotics for weeks. He states his cough is chronic and he does not bring up any sputum as of lately. He states his breathing is better right now since his heart rate is up closer to normal for him. An EKG was done by home health in the home several days ago, it showed the patient was in rate controlled atrial fibrillation. He did not have any palpitations or acute symptoms with that but it was noticed by the home health nurse that his pulse was irregular. He already has known paroxysmal atrial fibrillation, and for that reason is on amiodarone and Xarelto. He has had no bleeding from anywhere recently. No fevers or chills. He does not have a pacemaker. [facility] Medical History Acute pain of mouth Anticoagulated Atrial fibrillation COPD (chronic obstructive pulmonary disease) External hemorrhoid HTN (hypertension) Paroxysmal A-fib Restrictive lung disease Rheumatoid arthritis Small bowel obstruction Home Medications hydroxychloroquine 200 mg PO BID 11/07/18 [History Last Taken 01/19/22] methotrexate sodium 8 tab PO MO 11/07/18 [History Last Taken 01/17/22] cholecalciferol (vitamin D3) 2,000 unit PO DAILY@0800 12/13/18 [History Last Taken 01/19/22] ferrous sulfate 325 mg (65 mg iron) tablet,delayed release 325 mg PO DAILY tab 03/11/19 [History Last Taken 01/19/22] furosemide 40 mg tablet 40 mg PO DAILY tab 12/25/19 [History Last Taken 01/19/22] duloxetine 30 mg capsule,delayed release 30 mg PO BID cap 05/26/21 [History Last Taken 01/19/22] losartan 25 mg PO DAILY 09/21/21 [History Last Taken 01/19/22] Systane Complete 2 drp EACH EYE Q2H PRN PRN 11/06/21 [History Last Taken 01/19/22] amiodarone 200 mg PO DAILY 11/15/21 [History Last Taken 01/19/22] azelastine 1 spray INTRANASAL BID 11/15/21 [History Last Taken 01/19/22] calcium carbonate 500 mg PO BIDCM 11/15/21 [History Last Taken Unknown] carvedilol 12.5 mg PO BID 11/15/21 [History Last Taken 01/19/22] fluticasone propionate 1 spray INTRANASAL BID 11/15/21 [History Last Taken 01/19/22] folic acid 0.4 mg PO DAILY 11/15/21 [History Last Taken 01/19/22] omeprazole 40 mg PO DAILY 11/15/21 [History Last Taken 01/19/22] sennosides-docusate sodium [Senna Plus] 1 tab PO BID 11/15/21 [History Last Taken 01/19/22] nystatin [Nyamyc] 1 applic TOPICAL BID #0 g 11/17/21 [Rx Last Taken 01/19/22] rivaroxaban 20 mg tablet 20 mg PO DAILY #90 tab 11/18/21 [Rx Last Taken 01/19/22] ascorbic acid (vitamin C) 500 mg PO BID 01/20/22 [History Last Taken 01/19/22] polyethylene glycol 3350 17 g PO DAILY 01/20/22 [History Last Taken 01/19/22] psyllium husk [Metamucil] 1 tbsp PO DAILY 01/20/22 [History Last Taken 01/19/22] Allergy/AdvReac Type Severity Reaction Status Date / Time Penicillins Allergy Severe rash Verified 01/20/22 11:27 Family History (Updated 01/17/22 @ 13:39 by Aye Franklin) Mother Pancreatic cancer Father Heart problem Sister Breast cancer Other Paroxysmal A-fib Surgical History History of bowel resection (11/08/18) History of carpal tunnel release of both wrists History of cholecystectomy History of right hip replacement History of rotator cuff surgery Status post trigger finger release Status post wrist surgery Social History household members: spouse and family Smoking Status: Never smoker alcohol intake: never caffeine: Yes Type: coffee Number of servings: 1 ROS ROS ED Constitutional Constitutional ED: Reports malaise; Denies chills or fever(s) Eyes Eyes: Denies change in vision or diplopia ENT ENT ED: Denies rhinorrhea or sore throat Cardiovascular Cardiovascular: Reports as per HPI, pedal edema and slow heart rate; Denies chest pain or palpitations Respiratory/Chest Respiratory/Chest: Reports as per HPI, cough, dyspnea and dyspnea on exertion; Denies excessive phlegm production Gastrointestinal Gastrointestinal: Reports other Details: feel full in epigastrium ; Denies abdominal pain, diarrhea, nausea or vomiting Genitourinary Genitourinary ED: Denies dysuria or hematuria Musculoskeletal Musculoskeletal: Denies back pain or neck pain Integumentary Denies abscess or rash Neurologic Neurologic: Denies headache(s), paresthesias or weakness Psychiatric Psychiatric: Denies anxiety or suicidal thoughts EXAM Physical Exam Const Vital Signs: 01/20/22 11:21 01/20/22 11:24 01/20/22 11:26 Temperature 97.9 F 97.9 F Temperature Source Temporal Oral Pulse Rate 78 78 Respiratory Rate 18 16 Respiratory Effort Short of Breath Respiratory Depth Shallow Respiratory Pattern Normal Blood Pressure 156/60 H 156/60 H Blood Pressure Mean 92 92 Pulse Ox 94 96 Oxygen Delivery Method Nasal Cannula Nasal Cannula Nasal Cannula Oxygen Flow Rate (L/min) 6 6 01/20/22 12:24 01/20/22 13:00 01/20/22 14:09 Temperature 98.2 F 98.4 F 98.7 F Temperature Source Temporal Temporal Temporal Pulse Rate 71 74 82 Respiratory Rate 20 H 18 18 Respiratory Effort Respiratory Depth Respiratory Pattern Blood Pressure 128/69 H 152/79 H 148/78 H Blood Pressure Mean 88 103 101 Pulse Ox 94 98 94 Oxygen Delivery Method Nasal Cannula Nasal Cannula Nasal Cannula Oxygen Flow Rate (L/min) 4 4 2 Positive well nourished, well developed and obese General Appearance ED: well developed and NAD Nutritional Appearance: obese HEENT Reports moist mucous membranes normocephalic and atraumatic Eyes PERRL and EOMs intact bilaterally Neck full ROM and supple Resp normal respiratory effort and clear to auscultation bilaterally Resp Narrative: Very diminished breath sounds throughout, symmetrically. More diminished in the bases but no audible adventitious breath sounds. Cardio regular rate and regular rhythm Cardio Narrative: 2/6 systolic murmur LLSB Rate: Negative for bradycardia or tachycardic GI non-tender and non-distended Auscultation: normoactive bowel sounds Palpation: soft Back/Spine no CVA tenderness General Back: other FROM Extremity normal to inspection General Extremety ED: Yes edema; Negative for pulses abnormal or tenderness General Extremity: edema bilateral lower extremity Details: moderate (Chronic and stable per patient and ); Negative for pulses abnormal Neuro oriented x3, CN's II-XII intact bilaterally and no sensory deficits noted Sensorium / Orientation: awake and alert Motor Exam: strength 5/5 throughout Skin no rashes or lesions noted and no wounds MDM MDM MDM Narrative Medical decision making narrative: While monitoring the patient during his ED stay, he continued to have a heart rate in the 70s-80s. He did not become acutely symptomatic or near syncopal again. In working up his intermittent dyspnea that he states was worse when he was bradycardic, his screening x-ray shows complete white out of the left lung this is new compared with his old x-ray. I obtained a CT to evaluate further, it appears to be complete atelectasis of the left lung with no obvious etiology able to be seen. He has fairly severe COPD requiring 3 or more liters of oxygen even at rest. He is doing well at this time at rest. I discussed with Dr. Delgado covering for his pelt shearer Dr. Daniels, who agrees that the patient should be bronched, and since he is stable the plan will be to do that tomorrow, he should be n.p.o. after midnight. Plan is for admission. Lab Data Attestation: I reviewed the patient's lab results. Labs: Laboratory Results - last 24 hr 01/20/22 01/20/22 01/20/22 12:25 12:25 12:25 WBC 12.1 H RBC 3.19 L Hgb 9.7 L Hct 32.3 L MCV 101.3 H MCH 30.4 MCHC 30.0 L RDW Std Deviation 57.9 H RDW Coeff of Deandre 15.5 H Plt Count 299 MPV 9.3 Immature Gran % (Auto) 0.600 Neut % (Auto) 85.1 H Lymph % (Auto) 11.8 L [place] % (Auto) 2.2 Eos % (Auto) 0.2 Baso % (Auto) 0.1 Absolute Neuts (auto) 10.3 H Absolute Lymphs (auto) 1.43 Nucleated RBC % 0 Sodium 138 Potassium 4.3 Chloride 96 L Carbon Dioxide 42.0 H Anion Gap 0 L BUN 18 Creatinine 0.74 Estim Creat Clear Calc 67.36 Est GFR (MDRD) Af Amer 130 Est GFR (MDRD) Non-Af 107 BUN/Creatinine Ratio 24.2 H Glucose 106 Calcium 8.6 Troponin I High Sens 21 B-Natriuretic Peptide 142.9 H Radiography Diagnostic Testing: Clinical Impression(s) from Imaging Studies Chest X-Ray 01/20/22 12:00 IMPRESSION: Complete opacification of left hemithorax with shift of the heart and mediastinal structures to the left side suggestive of a combination of a left pleural effusion with underlying volume loss of the left lung. Electronically Signed: Donaldo Wyatt MD at 12:56 EST , Chest CT 01/20/22 13:35 IMPRESSION: Collapse of the left lung. Noncalcified nodules in the right lower lobe. Electronically Signed: Donaldo Wyatt MD at 14:18 EST , Rhythm Strip Rhythm Strip: Sinus Rhythm Rate: 75 Ectopy: None EKG Initial EKG: Attestation: I personally reviewed and interpreted this EKG as follows: Interpretation: Sinus Rhythm (76), No Acute Injury Pattern and Non-Specific ST Changes (Laterally) Prior EKG tracings: available for review Prior: Unchanged Discharge Plan Dx/Rx/DC Orders Clinical Impression: Collapse of left lung, Paroxysmal A-fib, Bradycardia, unspecified, COPD (chronic obstructive pulmonary disease) Disposition Disposition: Acute Care Hospital [facility]
[2022-01-20 12:39] LABS: Absolute Lymphocyte Count 1.43 X10^3/uL (0.83-4.51); Absolute Neutrophil Count 10.3 X10^3/uL (2.0-7.7); Basophil# 0.01 X10^3/uL; Basophil% 0.1 % (0-1); Eosinophil# 0.02 X10^3/uL; Eosinophils% 0.2 % (0-5); Hematocrit 32.3 % (40-54); Hemoglobin 9.7 g/dL (13.0-16.5); Lymphocyte # 1.43 X10^3/ul (0.83-4.51); Lymphocyte % 11.8 % (19-41); Mean Corpuscular Hgb 30.4 pg (27.0-32.0); Mean Corpuscular Volume 101.3 fL (80-94); Mean Platelet Vol. 9.3 fl (6.2-12.0); Monocyte# 0.27 X10^3/uL; Monocyte% 2.2 % (0-10); NRBC Flagged by Analyzer 0 % (0-5); Neutrophil # 10.33 X10^3/uL (2.7-7.7); Neutrophil % 85.1 % (47-70); Platelet Count 299 K/mm3 (150-450); RBC Distribution Width CV 15.5 % (11.6-14.6); RBC Distribution Width SD 57.9 fl (35.1-43.9); Red Blood Count 3.19 M/mm3 (4.6-6.2); White Blood Count 12.1 K/mm3 (4.4-11.0)
[2022-01-20 13:01] LABS: Anion Gap 0 (5-15); BUN 18 mg/dL (7-18); BUN/Creat Ratio 24.2 RATIO (10-20); Calcium,Total 8.6 mg/dL (8.5-10.1); Chloride 96 mmol/L (98-107); Creatinine, Serum 0.74 mg/dL (0.70-1.30); EST Glomerular Filtration Rate 107 mL/min (>60); Est Glom Filt Rate - Afr Amer 130 mL/min (>60); Estimated Creatinine Clearance 67.36 ml/min; Glucose 106 mg/dL (74-106); Potassium 4.3 mmol/L (3.5-5.1); Sodium Level 138 mmol/L (136-145); Troponin-I HS 21 pg/mL (3.0-78.0)
[2022-01-20 13:06] LABS: BNP,B-Type NATRIURETIC PEPTIDE 142.9 pg/mL (0-100)
--- NOTE | 2022-01-20 13:35 | CT_ITS ---
STUDY: CT CHEST WITHOUT CONTRAST REASON FOR EXAM: Male, 81 years old. Pleural effusion, sob RADIATION DOSAGE (If Supplied By Facility): CTDIvol = ( 21.27 ) mGy, DLP = ( 660.15 ) mGycm TECHNIQUE: Transaxial imaging was performed without the administration of intravenous contrast material. Multiplanar coronal and sagittal images were reformatted. Individualized dose optimization techniques were used for this CT. COMPARISON: Comparison is made with prior examination 01/30/2019. FINDINGS: Small bilateral axillary lymph nodes. There is collapse of the left lung with shift of the heart and mediastinal structures to the left hemithorax. Bronchial obstruction should be ruled out. There is a 8.5 mm nodule in the ostiomeatal segment of the right lower lobe. There is a 6.2 mm noncalcified nodule in the superior segment of the right lower lobe medially. Right basilar atelectasis. There is no demonstrated pleural abnormality. There are calcifications of the coronary arteries. Minimal pericardial thickening. There are multiple small lymph nodes within the mediastinum, which are normal in size and morphology most compatible with reactive lymph hyperplasia. Normal hilar regions. Normal unenhanced pulmonary arteries. There is atherosclerotic calcification of the aortic arch with tortuosity and elongation of the aortic arch and descending thoracic aorta. There are multi-level degenerative changes of the thoracic spine. There is no demonstrated abnormality of the visualized upper abdomen. CT/Chest without Contrast IMPRESSION: Collapse of the left lung. Noncalcified nodules in the right lower lobe. Electronically Signed: Donaldo Wyatt MD at 14:18 EST ,
--- NOTE | 2022-01-20 15:24 | HP.PCM.HOS_ITS ---
[facility] - General General Date of Admission: 01/20/22 HPI Narrative FARRAH LOZA, is a 81 M who presents with a complaint of bradycardia, down in the 40s all of the day before admission and today. He also has a history of paroxysmal afib but has been fairly rate controlled. He admitted to shortness of breath, especially with mild exertion; He usually wears 3L of oxygen, but says when he moves slightly he gets more short of breath. He denies any chest pain, palpitations, dizziness, nausea or vomiting. Review of systems is otherwise negative. Vitals were BP of 148/78, IN of 82 and RR of 18. He was saturating at 98.7% on 3L of oxygen. CBC showed wbc of 12.1 and hb of 9.7 and platelets of 299. Chemistry showed sodium of 138 with potassium of 4.3 and bicarb of 42. Cr was 0.74. BNP was 142.9.CXR showed complete opacification of left hemithorax with shoft of heart and mediastinal structures to left side suggestive of left pleural effusion with underlying volume loss of left side. Chest CT showed collapse of the left lung and noncalcified nodules in the right lower lung. He is being admitted to be managed for bradycardia and left lung collapse with atelectasis. [facility] Medical History (Updated 01/20/22 @ 17:05 by Olimpia Collado) Acute pain of mouth Anticoagulated Atrial fibrillation COPD (chronic obstructive pulmonary disease) External hemorrhoid HTN (hypertension) On home oxygen therapy Paroxysmal A-fib Restrictive lung disease Rheumatoid arthritis Small bowel obstruction Home Medications hydroxychloroquine 200 mg PO BID 11/07/18 [History Last Taken 01/19/22] methotrexate sodium 8 tab PO MO 11/07/18 [History Last Taken 01/17/22] cholecalciferol (vitamin D3) 2,000 unit PO DAILY@0800 12/13/18 [History Last Taken 01/19/22] ferrous sulfate 325 mg (65 mg iron) tablet,delayed release 325 mg PO DAILY tab 03/11/19 [History Last Taken 01/19/22] furosemide 40 mg tablet 40 mg PO DAILY tab 12/25/19 [History Last Taken 01/19/22] duloxetine 30 mg capsule,delayed release 30 mg PO BID cap 05/26/21 [History Last Taken 01/19/22] losartan 25 mg PO DAILY 09/21/21 [History Last Taken 01/19/22] Systane Complete 2 drp EACH EYE Q2H PRN PRN 11/06/21 [History Last Taken 2] amiodarone 200 mg PO DAILY 11/15/21 [History Last Taken 01/19/22] azelastine 1 spray INTRANASAL BID 11/15/21 [History Last Taken 01/19/22] calcium carbonate 500 mg PO BIDCM 11/15/21 [History Last Taken Unknown] carvedilol 12.5 mg PO BID 11/15/21 [History Last Taken 01/19/22] fluticasone propionate 1 spray INTRANASAL BID 11/15/21 [History Last Taken 01/19/22] folic acid 0.4 mg PO DAILY 11/15/21 [History Last Taken 01/19/22] omeprazole 40 mg PO DAILY 11/15/21 [History Last Taken 01/19/22] sennosides-docusate sodium [Senna Plus] 1 tab PO BID 11/15/21 [History Last Taken 01/19/22] nystatin [Nyamyc] 1 applic TOPICAL BID #0 g 11/17/21 [Rx Last Taken 01/19/22] rivaroxaban 20 mg tablet 20 mg PO DAILY #90 tab 11/18/21 [Rx Last Taken 01/19/22] ascorbic acid (vitamin C) 500 mg PO BID 01/20/22 [History Last Taken 01/19/22] polyethylene glycol 3350 17 g PO DAILY 01/20/22 [History Last Taken 01/19/22] psyllium husk [Metamucil] 1 tbsp PO DAILY 01/20/22 [History Last Taken 01/19/22] Allergy/AdvReac Type Severity Reaction Status Date / Time Penicillins Allergy Severe rash Verified 01/20/22 11:27 Family History (Updated 01/17/22 @ 13:39 by Aye Franklin) Mother Pancreatic cancer Father Heart problem Sister Breast cancer Other Paroxysmal A-fib Surgical History History of bowel resection (11/08/18) History of carpal tunnel release of both wrists History of cholecystectomy History of right hip replacement History of rotator cuff surgery Status post trigger finger release Status post wrist surgery Social History household members: spouse and family Smoking Status: Never smoker alcohol intake: never caffeine: Yes Type: coffee Number of servings: 1 ROS Constitutional Constitutional: Denies anorexia, change in weight, chills, fatigue, fever(s), malaise or weakness Eyes Eyes: Denies change in vision ENT HEENT: Denies abnormal hearing, headache(s), nasal congestion, nasal discharge or sore throat Cardiovascular Cardiovascular: Reports dyspnea on exertion and edema; Denies chest pain, claudication, lightheadedness, orthopnea, palpitations, paroxysmal nocturnal dyspnea, rapid heart rate or syncope Respiratory/Chest Respiratory/Chest: Reports dyspnea, shortness of breath at rest and shortness of breath with exertion; Denies cough, excessive phlegm production, hemoptysis, productive cough or wheezing Gastrointestinal Gastrointestinal: Denies abdominal pain, constipation, diarrhea, nausea or vomiting Genitourinary Genitourinary: Denies burning urination or dysuria Musculoskeletal Musculoskeletal: Denies arthralgias Neurologic Neurologic: Denies confusion, dizziness, focal weakness, numbness, seizure-like activity, seizures or syncope Psychiatric Psychiatric: Denies anxiety or depression Endocrine Endocrinology: Denies change in body appearance Hematologic/Lymphatic Hematologic/Lymphatic: Denies anemia Vital Signs Vital Signs Vital Signs: 01/20/22 11:21 01/20/22 11:24 01/20/22 11:26 Temperature 97.9 F 97.9 F Temperature Source Temporal Oral Pulse Rate 78 78 Respiratory Rate 18 16 Respiratory Effort Short of Breath Respiratory Depth Shallow Respiratory Pattern Normal Blood Pressure 156/60 H 156/60 H Blood Pressure Mean 92 92 Pulse Ox 94 96 Oxygen Delivery Method Nasal Cannula Nasal Cannula Nasal Cannula Oxygen Flow Rate (L/min) 6 6 01/20/22 12:24 01/20/22 13:00 01/20/22 14:09 Temperature 98.2 F 98.4 F 98.7 F Temperature Source Temporal Temporal Temporal Pulse Rate 71 74 82 Respiratory Rate 20 H 18 18 Respiratory Effort Respiratory Depth Respiratory Pattern Blood Pressure 128/69 H 152/79 H 148/78 H Blood Pressure Mean 88 103 101 Pulse Ox 94 98 94 Oxygen Delivery Method Nasal Cannula Nasal Cannula Nasal Cannula Oxygen Flow Rate (L/min) 4 4 2 Weight Weight: 285 lb 7.978 oz Body Mass Index (BMI) 36.6 Physical Exam Const alert and oriented x3 Constitutional Narrative: obese General Appearance: cooperative Orientation / Consciousness: lethargic HEENT normocephalic, head/scalp atraumatic, hearing grossly normal bilaterally and moist oral mucous membranes Eyes PERRL, EOMs intact bilaterally and conjunctivae normal Neck no lymphadenopathy Resp Resp Narrative: markedly diminished breath sounds in right mid and lower lung echeverria, no crackles. On 2L of oxygen Cardio regular rate, regular rhythm, S1 normal heart sound, S2 normal heart sound and no murmurs GI normal to inspection, nondistended, normoactive bowel sounds, soft to palpation, non-tender and non-distended GI Narrative: obese abdomen Extremity normal to inspection Extremity Narrative: 2+ bipedal pitting edema Peripheral Pulses: Yes pulses 2+ throughout Skin no rashes or lesions noted Neuro oriented x3, CN's II-XII intact bilaterally and moves all extremities Sensorium / Orientation: awake and alert Psych affect normal Results Lab / Micro Data Result Diagrams: 01/20/22 12:25 01/20/22 12:25 Labs: Laboratory Results - last 24 hr 01/20/22 12:25: WBC 12.1 H, RBC 3.19 L, Hgb 9.7 L, Hct 32.3 L, MCV 101.3 H, MCH 30.4, MCHC 30.0 L, RDW Std Deviation 57.9 H, RDW Coeff of Deandre 15.5 H, Plt Count 299, MPV 9.3, Immature Gran % (Auto) 0.600, Neut % (Auto) 85.1 H, Lymph % (Auto) 11.8 L, [place] % (Auto) 2.2, Eos % (Auto) 0.2, Baso % (Auto) 0.1, Absolute Neuts (auto) 10.3 H, Absolute Lymphs (auto) 1.43, Nucleated RBC % 0 01/20/22 12:25: Sodium 138, Potassium 4.3, Chloride 96 L, Carbon Dioxide 42.0 H, Anion Gap 0 L, BUN 18, Creatinine 0.74, Estim Creat Clear Calc 67.36, Est GFR (MDRD) Af Amer 130, Est GFR (MDRD) Non-Af 107, BUN/Creatinine Ratio 24.2 H, Glucose 106, Calcium 8.6, Troponin I High Sens 21 01/20/22 12:25: B-Natriuretic Peptide 142.9 H Rhythm Strip Rhythm Strip: Sinus Rhythm Rate: 75 Ectopy: None Radiology Impression Chest X-Ray 01/20/22 12:00 IMPRESSION: Complete opacification of left hemithorax with shift of the heart and mediastinal structures to the left side suggestive of a combination of a left pleural effusion with underlying volume loss of the left lung. Electronically Signed: Donaldo Wyatt MD at 12:56 EST , Chest CT 01/20/22 13:35 IMPRESSION: Collapse of the left lung. Noncalcified nodules in the right lower lobe. Electronically Signed: Donaldo Wyatt MD at 14:18 EST , Assessment & Plan Assessment/Plan (1) Collapse of left lung: (2) Bradycardia, unspecified: PLAN: #Left lung collapse * admit to PCU * breathing treatment with bronchodilators * titrate oxygen to maintain sats >90% * Chest CT showed left lung collapse with noncalcified nodules in right lower lobe. Etiology is not clear * consult pulmonology; for bronch tomorrow * keep NPO past midnight * #History of afib * on amiodarone and carvedilol. Hold xarelto as he is for bronch tomorrow * #Bradycardia * says he was noted to be bradycardic at home, with HR down to the 30s. HR has been stable since admission * will monitor per telemetry * continue amiodarone and carvedilol for now since HR has been in Normal since admission; consider holding if he becomes bradycardic * order 2D echo * #Hypertension: on carvedilol and losartan #Chronic hypoxic respiratory failure due to COPD * on 3L of oxygen baseline at home. Now on 2L of oxygen. * breathing treatment with bronchodilators. * titrate oxygen to maintain sats >90% * #History of rheumatoid arthritis: on methotrexate and hydroxychloroquine #Depression: on duloxetine DVT prophylaxis: SCDs. resume xarelto after bronch tomorrow COde status: full code * Patient and counseled extensively about different types of CODE STATUS including full code, DNR CCA and DNR CCA. Patient elects to be full code. * Total uhne-by-pmet time 17 minutes. Charges/Coding Visit Charges Inpatient E&M: 48700 Init Hosp L3 Procedures Hospitalists Procedures: 29684 Advncd Care Plan 30 Min
--- NOTE | 2022-01-20 15:46 | NURSING ---
PCU KORAM LEFT LUNG COLLAPSSE, COPD, TRANSIENT BRADYCARDIA
--- NOTE | 2022-01-20 15:47 | NURSING ---
Addendum entered by Jasmin Jameson 01/20/22 15:47: 121 Original Note: 232
--- NOTE | 2022-01-20 16:29 | CASEMGMT ---
RN CM Assessment Introduced role of RN CM to patient. Patient is alert, oriented and able to participate in RN CM Assessment. Care providers, pharmacy, and demographics verified. Admit Dx: Bradycardia, Left lung collapse Re-Admit: No Barriers/Issues: Had a fall in September 2021- Was at [facility] and just Dc'd approx 1 week ago. Never was able to increase strength to standing/transfers. Needs to use [employer] and sling. Has not needed transport since being home and has a barrier as unable to transport d/t patient inability to self maneuver. transportation resources provided to . PCP: Semaj Concepcion Specialists: Ortho- Audra, Pulm- Jeremiah, Cardio- Moodisissac Preferred Pharmacy: [facility] Insurance: [employer] A/B, [employer] Benefit: Yes LNOK: Altagracia Huerta and granddaughter Indira Yuen (Nurse on PCU here) LW/HPOA: states has LW completed and HPOA is her. Aware not on file at [facility] and will put a copy on file when she brings in. Living Arrangements: Lives with , granddaughter Indira and 's cousin in a [facility] with ramp access ADL?s: has assisted with ADLs this past week since patient has been home and states has HH SN/PT/OT (OT has not seen patient yet) Transportation: drives but cannot transport patient in current condition. Transportation resources for provided. DME: [employer], Sling, Hospital Bed, [place]-does not use, [facility], Home O2- 3Lpm and up to 5Lpm Continuous- and patient cannot recall which company O2 is with, [employer]. HHC: Current with [facility]- SN/PT/OT SNF: Recently Dc'd a week ago from [facility] Goal: Return home with [facility], will need transportation arranged. DC PLAN: Home with [facility]. Monitor O2 to see if requiring a change in O2 order. Called Vicente-s/w Liz and patient is not active w/them, called BABATUNDE and s/w Karen and patient not active, called Sravan and s/w Kamila and states not active with [employer] or [employer], called ANDRADE and s/w Tiffanie and states not active, Called Justina and s/w [place] and not active, called [facility] and answering service answered as they just had closed. RNCM will need to f/u on whom O2 agency is. YANA Ramsey
[2022-01-20] MEDS: Calcium Carbonate 500 MG Tablet PO (18:43)
[2022-01-20] MEDS: Hydroxychloroquine 200 MG Tablet PO (18:43)
[2022-01-20] MEDS: Ascorbic Acid 500 MG Tablet PO (21:45)
[2022-01-20] MEDS: Carvedilol 12.5 MG Tablet PO (21:46)
[2022-01-20] MEDS: Senna/Docusate Sodium 1 Tablet PO (21:47)
[2022-01-20] MEDS: DULoxetine Hcl 30 MG Capsule PO (21:47)
[2022-01-20] MEDS: Azelastine HCl NASAL.SRY 1 SPRAY NASAL (21:48)
[2022-01-20] MEDS: Fluticasone 0.05% 1 SPRAY NASAL.SRY NASAL (21:50)
[2022-01-21] VITALS (10 sets, daily range): BP systolic 107–125; BP diastolic 48–96; PULSE 71–110; RESP 18; TEMP 36.3–36.6; O2SAT 94–97
[2022-01-21 05:13] LABS: Absolute Lymphocyte Count 1.61 X10^3/uL (0.83-4.51); Absolute Neutrophil Count 8.8 X10^3/uL (2.0-7.7); Basophil# 0.01 X10^3/uL; Basophil% 0.1 % (0-1); Hematocrit 31.6 % (40-54); Hemoglobin 9.3 g/dL (13.0-16.5); Lymphocyte # 1.61 X10^3/ul (0.83-4.51); Lymphocyte % 14.9 % (19-41); Mean Corp Hgb Conc 29.4 g/dL (32-36); Mean Corpuscular Hgb 30.4 pg (27.0-32.0); Mean Corpuscular Volume 103.3 fL (80-94); Mean Platelet Vol. 9.4 fl (6.2-12.0); Monocyte# 0.36 X10^3/uL; Monocyte% 3.3 % (0-10); NRBC Flagged by Analyzer 0 % (0-5); Neutrophil # 8.82 X10^3/uL (2.7-7.7); Neutrophil % 81.3 % (47-70); Platelet Count 287 K/mm3 (150-450); RBC Distribution Width CV 15.5 % (11.6-14.6); Red Blood Count 3.06 M/mm3 (4.6-6.2); White Blood Count 10.8 K/mm3 (4.4-11.0)
[2022-01-21 05:34] LABS: Anion Gap 1 (5-15); BUN 18 mg/dL (7-18); BUN/Creat Ratio 31.6 RATIO (10-20); Calcium,Total 8.5 mg/dL (8.5-10.1); Chloride 97 mmol/L (98-107); Creatinine, Serum 0.57 mg/dL (0.70-1.30); EST Glomerular Filtration Rate 146 mL/min (>60); Est Glom Filt Rate - Afr Amer 176 mL/min (>60); Estimated Creatinine Clearance 69.24 ml/min; Glucose 103 mg/dL (74-106); Potassium 4.1 mmol/L (3.5-5.1); Sodium Level 138 mmol/L (136-145)
--- NOTE | 2022-01-21 06:56 | CON.PCM.CC_ITS ---
Assessment & Plan Assessment/Plan (1) Abnormal chest CT: PLAN: RECOMMENDATIONS: 1. No plan to proceed with bronchoscopy today, given that the patient has had Xarelto within the last 48 hours. 2. Will obtain chest ultrasound to evaluate for the presence of a left-sided pleural effusion. 3. Initiate aggressive bronchopulmonary hygiene, should the findings noted on chest imaging represent mucous plugging. 4. Continue to hold systemic anticoagulation. 5. If there is no improvement in the patient's left hemithorax opacification, would proceed with bronchoscopy on Monday. 6. Wean supplemental oxygen to maintain saturations at or above 90%. 7. Echocardiogram is pending. IMPRESSIONS: 1. Abnormal chest CT The patient initially presented to the hospital for the evaluation of bradycardia. However, subsequent chest CT revealed complete opacification of the left hemithorax with mediastinal shift and potential bronchial obstruction. This is a new finding when compared to prior chest imaging. While bronchoscopic evaluation to visualize the patient's airway would be indicated, biopsies would be required if an endobronchial lesion is identified. Unfortunately, the patient has had Xarelto within the last 48 hours. Therefore, bronchoscopy will be placed on hold for now with tentative plans to proceed on Monday. The patient's systemic anticoagulation should remain on hold. In addition to the aforementioned, will obtain a chest ultrasound to evaluate for the presence of a pleural effusion. In the interim, continue aggressive bronchopulmonary hygiene, should the patient's findings noted on chest imaging represent mucous plugging. 2. History of rheumatoid arthritis/atrial fibrillation/hypertension/depression Complicates care, management, recovery and prognosis. Continue home medications as indicated. This note was generated with [employer] dictation software. It may contain incorrect words, spelling, and punctuation that were not noted in checking the note before signing. HPI Consult Data Date of Consult: 01/21/22 HPI Narrative Reason for Consultation: Abnormal chest CT HPI Narrative: The patient is an 81-year-old male, with a history as outlined below, who presented to the emergency department on January 20 at the urging of his home health nurse for the evaluation of bradycardia. He has a documented history of restrictive lung disease and paroxysmal atrial fibrillation and is currently followed by Dr. Daniels in the pulmonary medicine clinic. The patient was last admitted to the hospital in November 2021, at which time, he was treated for pneumonia with antimicrobials. Prior pulmonary function studies completed in December 2020 demonstrated an irreversible moderately severe large airways obstructive ventilatory defect with symmetric reduction in diffusing capacities. Lung volumes were not able to be obtained at that time. On presentation to the emergency department, the patient was noted to be afebrile hemodynamically stable. Initial laboratory evaluation revealed a white blood cell count of 12,000. Platelet count was within normal limits. Chemistry profile was notable for a bicarbonate of 42 with a normal creatinine. As part of his work-up in the emergency department a CT chest without contrast was completed which revealed complete opacification of the left hemithorax with mediastinal shift and potential bronchial obstruction. This morning, the patient reported to me that he was unsure as to whether he took his Xarelto yesterday. However, he most certainly would have taken it on January 19. [facility] Medical History (Updated 01/21/22 @ 08:[address] Antwan Delgado, ) Acute pain of mouth Anticoagulated Atrial fibrillation COPD (chronic obstructive pulmonary disease) External hemorrhoid HTN (hypertension) On home oxygen therapy Paroxysmal A-fib Restrictive lung disease Rheumatoid arthritis Small bowel obstruction Home Medications hydroxychloroquine 200 mg PO BID 11/07/18 [History Last Taken 01/19/22] methotrexate sodium 8 tab PO MO 11/07/18 [History Last Taken 01/17/22] cholecalciferol (vitamin D3) 2,000 unit PO DAILY@0800 12/13/18 [History Last Taken 01/19/22] ferrous sulfate 325 mg (65 mg iron) tablet,delayed release 325 mg PO DAILY tab 03/11/19 [History Last Taken 01/19/22] furosemide 40 mg tablet 40 mg PO DAILY tab 12/25/19 [History Last Taken 01/19/22] duloxetine 30 mg capsule,delayed release 30 mg PO BID cap 05/26/21 [History Last Taken 01/19/22] losartan 25 mg PO DAILY 09/21/21 [History Last Taken 01/19/22] Systane Complete 2 drp EACH EYE Q2H PRN PRN 11/06/21 [History Last Taken 01/19/22] amiodarone 200 mg PO DAILY 11/15/21 [History Last Taken 01/19/22] azelastine 1 spray INTRANASAL BID 11/15/21 [History Last Taken 01/19/22] calcium carbonate 500 mg PO BIDCM 11/15/21 [History Last Taken Unknown] carvedilol 12.5 mg PO BID 11/15/21 [History Last Taken 01/19/22] fluticasone propionate 1 spray INTRANASAL BID 11/15/21 [History Last Taken 01/19/22] folic acid 0.4 mg PO DAILY 11/15/21 [History Last Taken 01/19/22] omeprazole 40 mg PO DAILY 11/15/21 [History Last Taken 01/19/22] sennosides-docusate sodium [Senna Plus] 1 tab PO BID 11/15/21 [History Last Taken 01/19/22] nystatin [Nyamyc] 1 applic TOPICAL BID #0 g 11/17/21 [Rx Last Taken 01/19/22] rivaroxaban 20 mg tablet 20 mg PO DAILY #90 tab 11/18/21 [Rx Last Taken 01/19/22] ascorbic acid (vitamin C) 500 mg PO BID 01/20/22 [History Last Taken 01/19/22] polyethylene glycol 3350 17 g PO DAILY 01/20/22 [History Last Taken 01/19/22] psyllium husk [Metamucil] 1 tbsp PO DAILY 01/20/22 [History Last Taken 01/19/22] Allergy/AdvReac Type Severity Reaction Status Date / Time Penicillins Allergy Severe rash Verified 01/20/22 11:27 Family History (Updated 01/17/22 @ 13:39 by Aye Franklin) Mother Pancreatic cancer Father Heart problem Sister Breast cancer Other Paroxysmal A-fib Surgical History History of bowel resection (11/08/18) History of carpal tunnel release of both wrists History of cholecystectomy History of right hip replacement History of rotator cuff surgery Status post trigger finger release Status post wrist surgery Social History household members: spouse and family Smoking Status: Never smoker alcohol intake: never caffeine: Yes Type: coffee Number of servings: 1 ROS Constitutional Constitutional: Denies body ache(s), chills or fatigue Eyes Eyes: Denies blurry vision or change in vision ENT HEENT: Denies dysphagia, nasal congestion or nasal discharge Cardiovascular Cardiovascular: Reports dyspnea Respiratory/Chest Respiratory/Chest: Reports dyspnea Gastrointestinal Gastrointestinal: Denies abdominal pain, diarrhea, nausea or vomiting Genitourinary Genitourinary: Denies difficulty urinating or dysuria Musculoskeletal Musculoskeletal: Denies arthralgias or back pain Integumentary Integumentary: Denies lesions, rash or skin ulcer Neurologic Neurologic: Denies abnormal gait or abnormal speech Psychiatric Psychiatric: Denies anxiety or depression Endocrine Endocrinology: Denies fatigue Hematologic/Lymphatic Hematologic/Lymphatic: Denies easy bleeding or easy bruising Physical Exam Const alert and no apparent distress General Appearance: cooperative Nutritional Appearance: obese HEENT normocephalic and head/scalp atraumatic Eyes PERRL, EOMs intact bilaterally and conjunctivae normal Neck supple General: trachea midline Chest inspection of chest normal Resp Resp Narrative: Virtually absent breath sounds in the left hemithorax. Cardio regular rate and regular rhythm GI normal to inspection, nondistended, normoactive bowel sounds Extremity General Extremity: edema; Negative for clubbing Skin no rashes or lesions noted Neuro CN's II-XII intact bilaterally, moves all extremities and no focal motor deficits Psych cooperative and affect normal Lab / Micro Data Result Diagrams: 01/21/22 04:50 01/21/22 04:50 Labs: Laboratory Results - last 24 hr 01/20/22 12:25: WBC 12.1 H, RBC 3.19 L, Hgb 9.7 L, Hct 32.3 L, MCV 101.3 H, MCH 30.4, MCHC 30.0 L, RDW Std Deviation 57.9 H, RDW Coeff of Deandre 15.5 H, Plt Count 299, MPV 9.3, Immature Gran % (Auto) 0.600, Neut % (Auto) 85.1 H, Lymph % (Auto) 11.8 L, [place] % (Auto) 2.2, Eos % (Auto) 0.2, Baso % (Auto) 0.1, Absolute Neuts (auto) 10.3 H, Absolute Lymphs (auto) 1.43, Nucleated RBC % 0 01/20/22 12:25: Sodium 138, Potassium 4.3, Chloride 96 L, Carbon Dioxide 42.0 H, Anion Gap 0 L, BUN 18, Creatinine 0.74, Estim Creat Clear Calc 67.36, Est GFR (MDRD) Af Amer 130, Est GFR (MDRD) Non-Af 107, BUN/Creatinine Ratio 24.2 H, Glucose 106, Calcium 8.6, Troponin I High Sens 21 01/20/22 12:25: B-Natriuretic Peptide 142.9 H 01/21/22 04:50: WBC 10.8, RBC 3.06 L, Hgb 9.3 L, Hct 31.6 L, MCV 103.3 H, MCH 30.4, MCHC 29.4 L, RDW Std Deviation 58.0 H, RDW Coeff of Deandre 15.5 H, Plt Count 287, MPV 9.4, Immature Gran % (Auto) 0.400, Neut % (Auto) 81.3 H, Lymph % (Auto) 14.9 L, [place] % (Auto) 3.3, Eos % (Auto) 0.0, Baso % (Auto) 0.1, Absolute Neuts (auto) 8.8 H, Absolute Lymphs (auto) 1.61, Nucleated RBC % 0 01/21/22 04:50: Sodium 138, Potassium 4.1, Chloride 97 L, Carbon Dioxide 40.0 H, Anion Gap 1 L, BUN 18, Creatinine 0.57 L, Estim Creat Clear Calc 69.24, Est GFR (MDRD) Af Amer 176, Est GFR (MDRD) Non-Af 146, BUN/Creatinine Ratio 31.6 H, Glucose 103, Calcium 8.5 Rhythm Strip Rhythm Strip: Sinus Rhythm Rate: 75 Ectopy: None Radiology Impression Chest X-Ray 01/20/22 12:00 IMPRESSION: Complete opacification of left hemithorax with shift of the heart and mediastinal structures to the left side suggestive of a combination of a left pleural effusion with underlying volume loss of the left lung. Electronically Signed: Donaldo Wyatt MD at 12:56 EST , Chest CT 01/20/22 13:35 IMPRESSION: Collapse of the left lung. Noncalcified nodules in the right lower lobe. Electronically Signed: Donaldo Wyatt MD at 14:18 EST , Charges/Coding Visit Charges Inpatient E&M: 72106 Init Hosp L3
--- NOTE | 2022-01-21 07:00 | ECHOCS_ITS ---
Reason For Study: Arrhythmia Procedure This was a 2D Doppler, Color Flow transthoracic echocardiogram. The study was technically limited. The study was technically difficult. Exam performed portable in patient room. Left Ventricle Normal left ventricle. The estimated ejection fraction is 55-60 %. Right Ventricle Normal right ventricle. Atria Normal left atrium. Normal right atrium. Mitral Valve The mitral valve is structurally normal. No prolapse or stenosis seen. Tricuspid Valve Normal tricuspid valve. Aortic Valve Mild diffuse aortic valve calcification. Pulmonic Valve The pulmonic valve is not well visualized. Great Vessels Normal aortic root. Pericardium/Pleural No pericardial effusion. Medication Diluted definity 2.5ml given slow IV push to enhance endocardial definition. MMode/2D Measurements & Calculations LVOT diam: 2.4 cm Ao root diam: 3.8 cm LA dimension(2D): 3.5 cm LVOT area: 4.5 cm2 Doppler Measurements & Calculations MV E max arnold: 87.0 cm/sec Ao V2 max: 168.3 cm/sec LV V1 max: 78.6 cm/sec Ao max P.3 mmHg LV V1 max P.5 mmHg MARIA ELENA(V,D): 2.1 cm2 PA V2 max: 98.5 cm/sec ECHO/Echo Complete W/ Contrast Interpretation Summary The estimated ejection fraction is 55-60 %. Patient with COPD/TDS Overall Normal LV systolic functhion No previous echo to compare Ordering Physician: Hayley Umanzor Referring Physician: Semaj Concepcion Performed By: Ida Guzman RDCS
[2022-01-21] MEDS: Polyethylene Glycol 3350 17 GM PACKET PO (08:07)
[2022-01-21] MEDS: Hydroxychloroquine 200 MG Tablet PO ×2 (08:07→17:36)
[2022-01-21] MEDS: Furosemide 40 MG Tablet PO (08:07)
[2022-01-21] MEDS: Psyllium 1 PACKET PO (08:07)
[2022-01-21] MEDS: Amiodarone 200 MG Tablet PO (08:07)
[2022-01-21] MEDS: Ferrous Sulfate 325 MG Tablet PO (08:07)
[2022-01-21] MEDS: Pantoprazole Sodium 40 MG Tablet PO (08:07)
[2022-01-21] MEDS: Ascorbic Acid 500 MG Tablet PO ×2 (08:08→23:00)
[2022-01-21] MEDS: Calcium Carbonate 500 MG Tablet PO ×2 (08:08→17:36)
[2022-01-21] MEDS: DULoxetine Hcl 30 MG Capsule PO ×2 (08:09→23:00)
[2022-01-21] MEDS: Fluticasone 0.05% 1 SPRAY NASAL.SRY NASAL ×2 (08:09→23:02)
[2022-01-21] MEDS: Carvedilol 12.5 MG Tablet PO ×2 (08:09→23:00)
[2022-01-21] MEDS: Losartan Potassium 25 MG Tablet PO (08:09)
[2022-01-21] MEDS: Senna/Docusate Sodium 1 Tablet PO ×2 (08:09→23:00)
[2022-01-21] MEDS: Azelastine HCl NASAL.SRY 1 SPRAY NASAL ×2 (08:10→23:00)
[2022-01-21] MEDS: Folic Acid 1 MG Tablet 0.5 MG PO (08:10)
--- NOTE | 2022-01-21 08:27 | US_ITS ---
STUDY: SUPERFICIAL ULTRASOUND - LEFT PLEURAL CAVITY. REASON FOR EXAM: Male, 81 years old. Eval for left pleural effusion TECHNIQUE: A superficial ultrasound was performed with real-time and static silver-scale imaging. COMPARISON: Comparison is made with prior examination of 01/21/2019. FINDINGS: Small left pleural effusion with loculations. US/Chest IMPRESSION: Small left pleural effusion with loculations. Electronically Signed: Donaldo Wyatt MD at 12:31 EST ,
[2022-01-21 08:51] LABS: International Normalized Ratio 1.3; Prothrombin Time (Protime)PT. 15.4 SECONDS (11.7-14.9)
[2022-01-21 08:52] LABS: Partial Thromboplast Time 35.3 Seconds (24.1-36.2)
--- NOTE | 2022-01-21 10:56 | CASEMGMT ---
Addendum entered by Shivani Nava 01/21/22 13:37: Call back from Pulm office and per nurse, pt's oxygen is set up thru [facility]. Call to [facility] and per rep, pt is active with them for home oxygen and has stationary concentrator as well as POC. Pt's order is for 3L continuous and 5L pulse with POC. Promise GLEZ CM Original Note: Per Dr. Hsu, pt will be here thru the weekend and is scheduled for a bronch on 01/24. Message left with pulm office to see if they have record of who pt's home oxygen is set up thru. MARY order placed for [facility]. CM to follow. Promise GLEZ CM
[2022-01-21] MEDS: Cholecalciferol (VIT D3) 25 MCG TABLET (1,000 UNITS) 50 MCG PO (12:46)
[2022-01-21] MEDS: Menthol/Lanolin/Calamine/Znox 113 GM Tube 1 APPLIC TOPICAL ×2 (12:46→23:00)
--- NOTE | 2022-01-21 12:55 | PCM.PN.HOSP ---
Documented by User: Moni Victoria NP, [employer] AD[employer]ER-C 01/21/22 13:07 Subjective Subjective Patient seen and examined. Reports shortness of breath which he states has been ongoing for some time however recently worsened. Denies cough, fever/chills. Objective Data Objective Data Vital Signs: Vital Signs Temp Pulse Resp BP Pulse Ox 97.5 F L 88 18 125/96 H 94 01/21/22 07:53 01/21/22 07:53 01/21/22 07:53 01/21/22 07:53 01/21/22 07:57 Oxygen Flow Rate (L/min) 3 Oxygen Delivery Method Nasal Cannula Weight: 270 lb 1.06 oz Body Mass Index (BMI) 33.7 Intake & Output: Intake and Output for Last 24 Hours 01/19/22 01/20/22 01/21/22 23:59 23:59 23:59 Intake Total 240 / 240 Output Total 251 / 251 150 / 150 Balance -11 / -11 -150 / -150 Lab / Micro Data Result Diagrams: 01/21/22 04:50 01/21/22 04:50 Labs: Laboratory Results - last 24 hr 01/20/22 12:25: Sodium 138, Potassium 4.3, Chloride 96 L, Carbon Dioxide 42.0 H, Anion Gap 0 L, BUN 18, Creatinine 0.74, Estim Creat Clear Calc 67.36, Est GFR (MDRD) Af Amer 130, Est GFR (MDRD) Non-Af 107, BUN/Creatinine Ratio 24.2 H, Glucose 106, Calcium 8.6, Troponin I High Sens 21 01/20/22 12:25: B-Natriuretic Peptide 142.9 H 01/21/22 04:50: WBC 10.8, RBC 3.06 L, Hgb 9.3 L, Hct 31.6 L, MCV 103.3 H, MCH 30.4, MCHC 29.4 L, RDW Std Deviation 58.0 H, RDW Coeff of Deandre 15.5 H, Plt Count 287, MPV 9.4, Immature Gran % (Auto) 0.400, Neut % (Auto) 81.3 H, Lymph % (Auto) 14.9 L, [place] % (Auto) 3.3, Eos % (Auto) 0.0, Baso % (Auto) 0.1, Absolute Neuts (auto) 8.8 H, Absolute Lymphs (auto) 1.61, Nucleated RBC % 0 01/21/22 04:50: Sodium 138, Potassium 4.1, Chloride 97 L, Carbon Dioxide 40.0 H, Anion Gap 1 L, BUN 18, Creatinine 0.57 L, Estim Creat Clear Calc 69.24, Est GFR (MDRD) Af Amer 176, Est GFR (MDRD) Non-Af 146, BUN/Creatinine Ratio 31.6 H, Glucose 103, Calcium 8.5 01/21/22 07:45: PT 15.4 H, INR 1.3, APTT 35.3 Radiography Diagnostic Testing: Radiology Impression Chest X-Ray 01/20/22 12:00 IMPRESSION: Complete opacification of left hemithorax with shift of the heart and mediastinal structures to the left side suggestive of a combination of a left pleural effusion with underlying volume loss of the left lung. Electronically Signed: Donaldo Wyatt MD at 12:56 EST , Chest CT 01/20/22 13:35 IMPRESSION: Collapse of the left lung. Noncalcified nodules in the right lower lobe. Electronically Signed: Donaldo Wyatt MD at 14:18 EST , Chest Ultrasound 01/21/22 08:27 IMPRESSION: Small left pleural effusion with loculations. Electronically Signed: Donaldo Wyatt MD at 12:31 EST , Rhythm Strip Rhythm Strip: Sinus Rhythm Rate: 75 Ectopy: None Physical Exam Const alert, oriented x3 and no apparent distress Orientation / Consciousness: awake, oriented to person, oriented to place and oriented to time HEENT normocephalic and moist oral mucous membranes Eyes PERRL, EOMs intact bilaterally and conjunctivae normal Neck no lymphadenopathy Resp clear to auscultation bilaterally Auscultation: diminished lung sounds Cardio regular rate, regular rhythm and no murmurs Peripheral Pulses: pulses 2+ throughout GI normal to inspection, nondistended, normoactive bowel sounds, non-tender and non-distended Extremity normal to inspection Extremity Narrative: Bilateral lower extremity weakness, right greater than left General Extremity: edema bilateral lower extremity Skin no rashes or lesions noted Lesions: no lesions Rashes: no rashes Trauma: no lacerations or abrasions Neuro CN's II-XII intact bilaterally, no focal motor deficits, no sensory deficits noted and deep tendon reflexes 2+ bilaterally Psych mental status grossly normal and affect normal Assessment & Plan Assessment/Plan (1) Abnormal chest CT: PLAN: 1. Collapse of left lung-CT showed left lung collapse with noncalcified nodules of the right lower lobe. Pulmonary medicine following. Plan for bronch and biopsy on Monday. Xarelto on hold. Chest ultrasound pending. 2. Bradycardia-reported by home health provider. Now stable, currently mildly tachycardic. Continue amiodarone and carvedilol with hold parameters. Echo pending. 3. Paroxysmal atrial fibrillation-continue amiodarone, carvedilol. Xarelto on hold. 4. Chronic hypoxic respiratory failure secondary to chronic COPD-no acute exacerbation. Continue supplement oxygen to maintain O2 above 90%. As needed aerosols. 5. History of rheumatoid arthritis-on methotrexate and hydroxychloroquine. 6. Hypertension-continue carvedilol, losartan. 7. Depression-on duloxetine. 8. 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 Follow-up with GI as outpatient. DVT prophylaxis- SCDs, xarelto on hold This patient was seen by JUANA Greco under the supervision of Dr. Hsu. Time spent examining patient, reviewing data and subsequent management of care: 14 Minutes. Documented by User: Dr. Evangelista Hsu MD 01/21/22 16:34 Subjective Subjective Follow-up for left hemithorax lung collapse. Patient dyspnea with minimal exertion. Fever T-max 100.4 Fahrenheit on 12/23 night. No chest pain. Objective Data Lab / Micro Data Result Diagrams: 01/21/22 04:50 01/21/22 04:50 Physical Exam Narrative General: Alert, Oriented x3, Cooperative BMI 33.8 kg/m? HEENT: Atraumatic, PERRLA, EOMI, Normocephalic Oral: No Gingival or Mucosal Lesions/ Ulcerations Neck: Supple, No JVD, Negative Carotid Bruits Lungs: Air entry severely diminished in the left lung. On percussion left lung anteriorly posteriorly and laterally. Trachea and mediastinal shift left side. Cardiovascular: Bradycardia resolved. Normal S1, Normal S2, No murmurs Abdomen: Bowel Sounds Present, Soft, Non Tender, Non-Distended : No renal angle tenderness. No suprapubic tenderness. Extremities: No edema, Capillary Refill Less than 3 Seconds Skin: No rashes, No breakdown Musculoskeletal: Large scar on the right leg from hip to knee. Muscle weakness 3/5 at major joints of lower extremity. Patient cannot stand up. Wheelchair-bound. ROM severely restricted Neurological: Cranial nerves II-XII grossly intact, DTR 2/4 Psych/Mental Status: Flat affect Assessment & Plan Assessment/Plan (1) Collapse of left lung: PLAN: This patient was seen in conjunction with B[employer] ADJUSTER, Moni. I have independently interviewed and examined the patient and reviewed pertinent history, examination findings, laboratory and plan of management. I have reviewed the note and agree with the documented findings with the few additional points. In brief, patient is admitted for bradycardia heart rate in 40s. During evaluation chest CT scan complete opacification of left hemithorax along with mediastinal shift consistent with lung collapse. Possible differential bronchial obstruction/atelectasis. Patient also gives history that he had an ascribing done about 2 to 3 years ago in [facility]. Patient has a history of restrictive lung disease due to rheumatoid arthritis and is on amiodarone. Dr. Delgado recommended bronchoscopy with biopsy but unfortunately he is on Xarelto and needs at least 48 hours off Xarelto prior to the scope therefore 9 on Monday. In the interim, ultrasound lung was done and reported a small left pleural effusion with loculation. The patient has no comorbidities which include paroxysmal A. fib on amiodarone, chronic hypoxic respiratory failure on 3 L of home oxygen, COPD with no exacerbation. History of rheumatoid arthritis, hypertension and depression. Last echo in October 2018 reported EF 55% with normal LV systolic wall motion, size and systolic function. History of GI bleed type II with isolated gastric varices portal hypertensive gastropathy. I have discussed my assessment with B[employer] ADJUSTER, Moni and orders have been reviewed. Charges/Coding Visit Charges Inpatient E&M: 04907 Subs Hosp L2
--- NOTE | 2022-01-21 13:52 | CASEMGMT ---
Pt qualifies for palliative c/s per screening tool and Eli ALLOPATHIC DOCTOR is agreeable. Order placed and referral e-mailed. Promise GLEZ CM
[2022-01-21] MEDS: Juven (unflavored) Packet 1 PACKET PO (17:36)
[2022-01-22] VITALS (13 sets, daily range): BP systolic 105–136; BP diastolic 58–72; PULSE 64–82; RESP 18–20; TEMP 36.2–36.9; O2SAT 80–97
[2022-01-22] MEDS: Menthol/Lanolin/Calamine/Znox 113 GM Tube 1 APPLIC TOPICAL (06:44)
--- NOTE | 2022-01-22 07:15 | PCM.PN.INT ---
Assessment & Plan Assessment/Plan (1) Abnormal chest CT: PLAN: RECOMMENDATIONS: 1. Continue to hold Xarelto, with tentative plans for bronchoscopy on Monday. 2. Wean supplemental oxygen as tolerated for saturations greater than 90%. 3. Continue aggressive bronchopulmonary hygiene. 4. Obtain repeat chest x-ray Monday morning. IMPRESSIONS: 1. Abnormal chest CT The patient initially presented to the hospital for the evaluation of bradycardia. However, subsequent chest CT revealed complete opacification of the left hemithorax with mediastinal shift and potential bronchial obstruction. This is a new finding when compared to prior chest imaging. While bronchoscopic evaluation to visualize the patient's airway would be indicated, biopsies would be required if an endobronchial lesion is identified. Unfortunately, the patient had Xarelto within 48 hours of his admission. Therefore, the decision was made to hold on bronchoscopy until Monday, should biopsies be required. The patient systemic anticoagulation should remain on hold. Focused left-sided chest ultrasound only demonstrated a small loculated effusion. Plan to continue aggressive bronchopulmonary hygiene, should the patient's findings noted on chest imaging represent mucous plugging. Continue to wean oxygen as tolerated to maintain saturations at or above 90%. 2. History of rheumatoid arthritis/atrial fibrillation/hypertension/depression Complicates care, management, recovery and prognosis. Continue home medications as indicated. This note was generated with [employer] dictation software. It may contain incorrect words, spelling, and punctuation that were not noted in checking the note before signing. Subjective Subjective The patient was seen and examined at the bedside this morning. Events from the last 24 hours have been reviewed. The patient is currently afebrile, hemodynamically stable and maintaining appropriate oxygen saturations on 6 L/min via nasal cannula. The patient is currently documented to be overall net -1.5 L for the hospitalization. Objective Data Objective Data The patient's most recent lab work, culture data and imaging studies have all been personally reviewed. Ultrasound of the left chest demonstrated a small pleural effusion with loculations. Surface echocardiogram demonstrated an ejection fraction of 55 to 60%. Vital Signs: Vital Signs Temp Pulse Resp BP Pulse Ox 98.0 F 73 18 105/64 97 01/22/22 05:00 01/22/22 06:36 01/22/22 05:00 01/22/22 05:00 01/22/22 05:00 Oxygen Flow Rate (L/min) 6 Oxygen Delivery Method Nasal Cannula Weight: 122.5 kg Body Mass Index (BMI) 33.7 Intake & Output: Intake and Output for Last 24 Hours 01/20/22 01/21/22 01/22/22 23:59 23:59 23:59 Intake Total 240 / 240 Output Total 251 / 251 575 / 1225 925 / 925 Balance -575 / -1225 -925 / -92 Lab / Micro Data Attestation: I reviewed the patient's lab results. Result Diagrams: 01/21/22 04:50 01/21/22 04:50 Labs: Laboratory Results - last 24 hr 01/21/22 07:45: PT 15.4 H, INR 1.3, APTT 35.3 Radiography Diagnostic Testing: Radiology Impression Echocardiogram 01/21/22 07:00 Interpretation Summary The estimated ejection fraction is 55-60 %. Patient with COPD/TDS Overall Normal LV systolic functhion No previous echo to compare Ordering Physician: Hayley Umanzor Referring Physician: Semaj Concepcion Performed By: Ida Guzman RDCS Chest Ultrasound 01/21/22 08:27 IMPRESSION: Small left pleural effusion with loculations. Electronically Signed: Donaldo Wyatt MD at 12:31 EST , Rhythm Strip Rhythm Strip: Sinus Rhythm Rate: 75 Ectopy: None Physical Exam Const alert and no apparent distress General Appearance: cooperative Nutritional Appearance: obese HEENT normocephalic and head/scalp atraumatic Eyes PERRL, EOMs intact bilaterally and conjunctivae normal Neck supple General: trachea midline Chest inspection of chest normal Resp Resp Narrative: There continues to be globally diminished air movement throughout the left hemithorax. Cardio regular rate and regular rhythm GI normal to inspection, nondistended, normoactive bowel sounds Extremity General Extremity: edema; Negative for clubbing Skin no rashes or lesions noted Neuro CN's II-XII intact bilaterally, moves all extremities and no focal motor deficits Psych cooperative and affect normal Charges/Coding Visit Charges Inpatient E&M: 30340 Subs Hosp L2
[2022-01-22] MEDS: Fluticasone 0.05% 1 SPRAY NASAL.SRY NASAL ×2 (08:24→20:45)
[2022-01-22] MEDS: Azelastine HCl NASAL.SRY 1 SPRAY NASAL ×2 (08:24→20:43)
[2022-01-22] MEDS: Juven (unflavored) Packet 1 PACKET PO ×2 (08:33→15:54)
[2022-01-22] MEDS: Folic Acid 1 MG Tablet 0.5 MG PO (08:34)
[2022-01-22] MEDS: Cholecalciferol (VIT D3) 25 MCG TABLET (1,000 UNITS) 50 MCG PO (08:34)
[2022-01-22] MEDS: Losartan Potassium 25 MG Tablet PO (08:34)
[2022-01-22] MEDS: Carvedilol 12.5 MG Tablet PO ×2 (08:34→20:44)
[2022-01-22] MEDS: Psyllium 1 PACKET PO (08:34)
[2022-01-22] MEDS: DULoxetine Hcl 30 MG Capsule PO ×2 (08:34→20:45)
[2022-01-22] MEDS: Ferrous Sulfate 325 MG Tablet PO (08:34)
[2022-01-22] MEDS: Senna/Docusate Sodium 1 Tablet PO ×2 (08:34→20:46)
[2022-01-22] MEDS: Polyethylene Glycol 3350 17 GM PACKET PO (08:34)
[2022-01-22] MEDS: Furosemide 40 MG Tablet PO (08:34)
[2022-01-22] MEDS: Amiodarone 200 MG Tablet PO (08:35)
[2022-01-22] MEDS: Hydroxychloroquine 200 MG Tablet PO ×2 (08:35→15:55)
[2022-01-22] MEDS: Ascorbic Acid 500 MG Tablet PO ×2 (08:35→20:46)
[2022-01-22] MEDS: Calcium Carbonate 500 MG Tablet PO ×2 (08:35→15:54)
[2022-01-22] MEDS: Pantoprazole Sodium 40 MG Tablet PO (08:35)
--- NOTE | 2022-01-22 10:49 | PN.HOSP_ITS ---
Documented by User: Moni Victoria NP, HEEL SANDER RUBBER-C 01/22/22 10:55 Subjective Subjective Patient seen and examined. States shortness of breath is about the same. Intermittent wet cough, nonproductive. Denies fever, chills. Objective Data Objective Data Vital Signs: Vital Signs Temp Pulse Resp BP Pulse Ox 97.2 F L 76 18 125/58 H 93 01/22/22 08:18 01/22/22 08:18 01/22/22 08:18 01/22/22 08:18 01/22/22 08:18 Oxygen Flow Rate (L/min) 4 Oxygen Delivery Method Nasal Cannula Weight: 270 lb 1.06 oz Body Mass Index (BMI) 33.7 Intake & Output: Intake and Output for Last 24 Hours 01/20/22 01/21/22 01/22/22 23:59 23:59 23:59 Intake Total 240 / 240 Output Total 251 / 251 575 / 1225 925 / 925 Balance -11 -575 / -1225 -925 / -925 Lab / Micro Data Result Diagrams: 01/21/22 04:50 01/21/22 04:50 Radiography Diagnostic Testing: Radiology Impression Echocardiogram 01/21/22 07:00 Interpretation Summary The estimated ejection fraction is 55-60 %. Patient with COPD/TDS Overall Normal LV systolic functhion No previous echo to compare Ordering Physician: Hayley Umanzor Referring Physician: Semaj Concepcion Performed By: Ida Guzman RDCS Chest Ultrasound 01/21/22 08:27 IMPRESSION: Small left pleural effusion with loculations. Electronically Signed: Donaldo Wyatt MD at 12:31 EST , Rhythm Strip Rhythm Strip: Sinus Rhythm Rate: 75 Ectopy: None Physical Exam Const alert, oriented x3 and no apparent distress Orientation / Consciousness: awake, oriented to person, oriented to place and oriented to time HEENT normocephalic and moist oral mucous membranes Eyes PERRL, EOMs intact bilaterally and conjunctivae normal Neck no lymphadenopathy Resp clear to auscultation bilaterally Auscultation: diminished lung sounds Cardio regular rate, regular rhythm and no murmurs Peripheral Pulses: pulses 2+ throughout GI normal to inspection, nondistended, normoactive bowel sounds, non-tender and non-distended Extremity normal to inspection General Extremity: edema bilateral lower extremity (Right greater than left) Skin no rashes or lesions noted Lesions: no lesions Rashes: no rashes Trauma: no lacerations or abrasions Neuro CN's II-XII intact bilaterally, no focal motor deficits, no sensory deficits noted and deep tendon reflexes 2+ bilaterally Psych mental status grossly normal and affect normal Assessment & Plan Assessment/Plan (1) Collapse of left lung: PLAN: 1. Collapse of left lung, potential bronchial obstruction-CT showed left lung collapse with noncalcified nodules of the right lower lobe. Pulmonary medicine following. Plan for bronch and biopsy on Monday. Xarelto on hold. Chest ultrasound shows small left pleural effusion with loculations. 2. Bradycardia-reported by home health provider. Now stable, no further bradycardia during admission. Continue amiodarone and carvedilol with hold parameters. Echo with EF 55 to 60%. 3. Paroxysmal atrial fibrillation-continue amiodarone, carvedilol. Xarelto on hold. 4. Chronic hypoxic respiratory failure secondary to chronic COPD-no acute exacerbation. Continue supplement oxygen to maintain O2 above 90%. As needed aerosols. 5. History of rheumatoid arthritis-on methotrexate and hydroxychloroquine. 6. Hypertension-continue carvedilol, losartan. 7. Depression-on duloxetine. 8. 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 Follow-up with GI as outpatient. DVT prophylaxis- SCDs, xarelto on hold This patient was seen by JUANA Greco under the supervision of Dr. Hsu. Time spent examining patient, reviewing data and subsequent management of care: 12 Minutes. Documented by User: Dr. Evangelista Hsu MD 01/22/22 16:28 Subjective Subjective Follow-up for acute on chronic hypoxic respiratory failure Seen and examined. Patient does not feel improvement in shortness of breath Objective Data Lab / Micro Data Result Diagrams: 01/21/22 04:50 01/21/22 04:50 Physical Exam Narrative General: Alert, Oriented x3, Cooperative BMI 33.8 kg/m? HEENT: Atraumatic, PERRLA, EOMI, Normocephalic Oral: No Gingival or Mucosal Lesions/ Ulcerations Neck: Supple, No JVD, Negative Carotid Bruits Lungs: Air entry severely diminished in the left lung. On percussion left lung anteriorly posteriorly and laterally. Trachea and mediastinal shift left side. Mild shortness of breath Cardiovascular: Bradycardia resolved. Normal S1, Normal S2, No murmurs Abdomen: Bowel Sounds Present, Soft, Non Tender, Non-Distended : No renal angle tenderness. No suprapubic tenderness. Extremities: No edema, Capillary Refill Less than 3 Seconds Skin: No rashes, No breakdown Musculoskeletal: Large scar on the right leg from hip to knee. Muscle weakness 3/5 at major joints of lower extremity. Patient cannot stand up. Wheelchair- bound. ROM severely restricted Neurological: Cranial nerves II-XII grossly intact, DTR 2/4 Psych/Mental Status: Flat affect Assessment & Plan Assessment/Plan (1) Abnormal chest CT: PLAN: This patient was seen in conjunction with HEEL SANDER RUBBER, Moni. I have independently interviewed and examined the patient and reviewed pertinent history, examination findings, laboratory and plan of management. I have reviewed the note and agree with the documented findings with the few additional points. In brief, patient is admitted for bradycardia heart rate in 40s with acute on chronic hypoxic respiratory failure. Patient baseline O2 requirement is 2 L admitted with 6 L O2 through nasal cannula. During evaluation in ED, chest CT scan showed complete opacification of left hemithorax along with mediastinal shift consistent with lung collapse. Possible differential bronchial obstruction/atelectasis. Patient also gives history that he had an ascribing done about 2 to 3 years ago in [facility]. Patient has a history of restrictive lung disease due to rheumatoid arthritis and is on amiodarone. Dr. Delgado recommended bronchoscopy with biopsy but unfortunately he is on Xarelto and needs at least 48 hours off Xarelto prior to the scope therefore 9 on Monday. In the interim, ultrasound lung was done and reported a small left pleural effusion with loculation. The patient has other comorbidities which include paroxysmal A. fib on amiodarone, chronic hypoxic respiratory failure on 3 L of home oxygen, COPD with no exacerbation. History of rheumatoid arthritis, hypertension and depression. Last echo in October 2018 reported EF 55% with normal LV systolic wall motion, size and systolic function. History of GI bleed type II with isolated gastric varices portal hypertensive gastropathy. I have discussed my assessment with HEEL SANDER RUBBER, Moni and orders have been reviewed. Charges/Coding Visit Charges Inpatient E&M: 72888 Subs Hosp L2
[2022-01-22] MEDS: guaiFENesin 1,200 MG Tablet 1200 MG PO ×2 (11:26→20:45)
--- NOTE | 2022-01-22 17:55 | NURSING ---
Pt c/o sob upon this RN entering pt's room. This RN checked pt's spo2. Satting 80% on 4LNC. Pt turned up to 6LNC and satting 93% at this time. RT called and in to give breathing tx.
[2022-01-22] MEDS: Albuterol 2.5 MG/3 ML VIAL.NEB. INHALATION (17:59)
[2022-01-22] MEDS: Acetaminophen 325 MG Tablet 650 MG PO (23:57)
[2022-01-23] VITALS (10 sets, daily range): BP systolic 102–136; BP diastolic 50–64; PULSE 66–77; RESP 18–21; TEMP 36.5–36.8; O2SAT 92–97; BMI 33.7
--- NOTE | 2022-01-23 07:01 | PCM.PN.INT ---
Assessment & Plan Assessment/Plan (1) Abnormal chest CT: PLAN: RECOMMENDATIONS: 1. Continue to hold Xarelto, with tentative plans for bronchoscopy Monday. 2. Wean supplemental oxygen as tolerated for saturations greater than 90%. 3. Continue aggressive bronchopulmonary hygiene. 4. Obtain repeat chest x-ray tomorrow morning. IMPRESSIONS: 1. Abnormal chest CT The patient initially presented to the hospital for the evaluation of bradycardia. However, subsequent chest CT revealed complete opacification of the left hemithorax with mediastinal shift and potential bronchial obstruction. This is a new finding when compared to prior chest imaging. While bronchoscopic evaluation to visualize the patient's airway would be indicated, biopsies would be required if an endobronchial lesion is identified. Unfortunately, the patient had Xarelto within 48 hours of his admission. Therefore, the decision was made to hold on bronchoscopy until Monday, should biopsies be required. The patient systemic anticoagulation should remain on hold. Focused left-sided chest ultrasound only demonstrated a small loculated effusion. Plan to continue aggressive bronchopulmonary hygiene, should the patient's findings noted on chest imaging represent mucous plugging. Continue to wean oxygen as tolerated to maintain saturations at or above 90%. Obtain repeat chest x-ray tomorrow morning. 2. History of rheumatoid arthritis/atrial fibrillation/hypertension/depression Complicates care, management, recovery and prognosis. Continue home medications as indicated. This note was generated with [employer] dictation software. It may contain incorrect words, spelling, and punctuation that were not noted in checking the note before signing. Subjective Subjective The patient was seen and examined at the bedside this morning. Events from the last 24 hours have been reviewed. The patient is currently afebrile, hemodynamically stable and maintaining appropriate oxygen saturations on 5 L/min via nasal cannula. The patient is currently documented to be overall net -1.6 L for the hospitalization. The patient does endorse ongoing shortness of breath this morning. Objective Data Objective Data The patient's most recent lab work, culture data and imaging studies have all been personally reviewed. Ultrasound of the left chest demonstrated a small pleural effusion with loculations. Surface echocardiogram demonstrated an ejection fraction of 55 to 60%. Vital Signs: Vital Signs Temp Pulse Resp BP Pulse Ox 98.2 F 69 20 H 102/50 L 97 01/23/22 04:03 01/23/22 06:35 01/23/22 04:03 01/23/22 04:03 01/23/22 04:04 Oxygen Flow Rate (L/min) 5 Oxygen Delivery Method Nasal Cannula Weight: 122.5 kg Body Mass Index (BMI) 33.7 Intake & Output: Intake and Output for Last 24 Hours 01/21/22 01/22/22 01/24/22 23:59 23:59 00:59 Intake Total 940 / 940 240 / 240 Output Total 575 / 1225 2075 / 2075 200 / 200 Balance -575 / -1225 -1135 / -1135 40 / 40 Lab / Micro Data Attestation: I reviewed the patient's lab results. Result Diagrams: 01/21/22 04:50 01/21/22 04:50 Rhythm Strip Rhythm Strip: Sinus Rhythm Rate: 75 Ectopy: None Physical Exam Const alert and no apparent distress General Appearance: cooperative Nutritional Appearance: obese HEENT normocephalic and head/scalp atraumatic Eyes PERRL, EOMs intact bilaterally and conjunctivae normal Neck supple General: trachea midline Chest inspection of chest normal Resp Resp Narrative: There continues to be globally diminished air movement throughout the left hemithorax. Cardio regular rate and regular rhythm GI normal to inspection, nondistended, normoactive bowel sounds Extremity General Extremity: edema; Negative for clubbing Skin no rashes or lesions noted Neuro CN's II-XII intact bilaterally, moves all extremities and no focal motor deficits Psych Mood & Affect: flat affect Charges/Coding Visit Charges Inpatient E&M: 21903 Subs Hosp L2
[2022-01-23] MEDS: Azelastine HCl NASAL.SRY 1 SPRAY NASAL ×2 (08:14→21:40)
[2022-01-23] MEDS: Fluticasone 0.05% 1 SPRAY NASAL.SRY NASAL ×2 (08:14→21:41)
[2022-01-23] MEDS: Juven (unflavored) Packet 1 PACKET PO ×2 (08:18→15:43)
[2022-01-23] MEDS: Polyethylene Glycol 3350 17 GM PACKET PO (08:18)
[2022-01-23] MEDS: Psyllium 1 PACKET PO (08:18)
[2022-01-23] MEDS: Senna/Docusate Sodium 1 Tablet PO ×2 (08:19→21:42)
[2022-01-23] MEDS: Carvedilol 12.5 MG Tablet PO ×2 (08:19→21:40)
[2022-01-23] MEDS: Calcium Carbonate 500 MG Tablet PO ×2 (08:19→15:43)
[2022-01-23] MEDS: Ascorbic Acid 500 MG Tablet PO ×2 (08:19→21:41)
[2022-01-23] MEDS: Hydroxychloroquine 200 MG Tablet PO ×2 (08:19→15:43)
[2022-01-23] MEDS: Cholecalciferol (VIT D3) 25 MCG TABLET (1,000 UNITS) 50 MCG PO (08:19)
[2022-01-23] MEDS: Folic Acid 1 MG Tablet 0.5 MG PO (08:19)
[2022-01-23] MEDS: Pantoprazole Sodium 40 MG Tablet PO (08:19)
[2022-01-23] MEDS: Losartan Potassium 25 MG Tablet PO (08:19)
[2022-01-23] MEDS: Furosemide 40 MG Tablet PO (08:19)
[2022-01-23] MEDS: Amiodarone 200 MG Tablet PO (08:19)
[2022-01-23] MEDS: guaiFENesin 1,200 MG Tablet 1200 MG PO ×2 (08:19→21:41)
[2022-01-23] MEDS: DULoxetine Hcl 30 MG Capsule PO ×2 (08:20→21:40)
[2022-01-23] MEDS: Ferrous Sulfate 325 MG Tablet PO (08:20)
--- NOTE | 2022-01-23 09:01 | PN.HOSP_ITS ---
Documented by User: Moni Victoria NP, INSTRUCTIONAL TECHNOLOGY TEACHER-C 01/23/22 09:08 Subjective Subjective Patient seen and examined. Continues to report difficulty breathing with minimal movement. States it takes him a long time to eat as he gets short of breath with eating. Feels cough is somewhat improving. Denies fever, chills. Denies other symptoms or complaints. Objective Data Objective Data Vital Signs: Vital Signs Temp Pulse Resp BP Pulse Ox 97.7 F L 70 18 136/64 H 95 01/23/22 08:12 01/23/22 08:12 01/23/22 08:12 01/23/22 08:12 01/23/22 08:12 Oxygen Flow Rate (L/min) 4 Oxygen Delivery Method Nasal Cannula Weight: 270 lb 1.06 oz Body Mass Index (BMI) 33.7 Intake & Output: Intake and Output for Last 24 Hours 01/21/22 01/22/22 01/24/22 23:59 23:59 00:59 Intake Total 940 / 940 240 / 240 Output Total 575 / 1225 2075 / 2075 200 / 200 Balance -575 / -1225 -1135 / -1135 40 / 40 Lab / Micro Data Result Diagrams: 01/21/22 04:50 01/21/22 04:50 Rhythm Strip Rhythm Strip: Sinus Rhythm Rate: 75 Ectopy: None Physical Exam Const alert, oriented x3 and no apparent distress Orientation / Consciousness: awake, oriented to person, oriented to place and oriented to time HEENT normocephalic and moist oral mucous membranes Eyes PERRL, EOMs intact bilaterally and conjunctivae normal Neck no lymphadenopathy Resp clear to auscultation bilaterally Auscultation: diminished lung sounds Cardio regular rate, regular rhythm and no murmurs Peripheral Pulses: pulses 2+ throughout GI normal to inspection, nondistended, normoactive bowel sounds, non-tender and non-distended Extremity normal to inspection General Extremity: edema bilateral lower extremity (Sharan wraps in place) Skin no rashes or lesions noted Lesions: no lesions Rashes: no rashes Trauma: no lacerations or abrasions Neuro CN's II-XII intact bilaterally, no focal motor deficits, no sensory deficits noted and deep tendon reflexes 2+ bilaterally Psych mental status grossly normal and affect normal Assessment & Plan Assessment/Plan (1) Abnormal chest CT: (2) Collapse of left lung: PLAN: 1. Acute on chronic hypoxic respiratory failure secondary to collapse of left lung, potential bronchial obstruction-CT showed left lung collapse with noncalcified nodules of the right lower lobe. Pulmonary medicine following. Plan for bronchoscopy and biopsy on Monday. Xarelto on hold. Chest ultrasound shows small left pleural effusion with loculations. Repeat CXR in a.m. 2. Bradycardia-reported by home health provider. Now stable, no further bradycardia during admission. Continue amiodarone and carvedilol with hold parameters. Echo with EF 55 to 60%. 3. Paroxysmal atrial fibrillation-continue amiodarone, carvedilol. Xarelto on hold. 4. Chronic hypoxic respiratory failure secondary to chronic COPD-no acute exacerbation. Continue supplement oxygen to maintain O2 above 90%. As needed aerosols. 5. History of rheumatoid arthritis-on methotrexate and hydroxychloroquine. 6. Hypertension-continue carvedilol, losartan. 7. Depression-on duloxetine. 8. 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 Follow-up with GI as outpatient. DVT prophylaxis- SCDs, xarelto on hold This patient was seen by JUANA Greco under the supervision of Dr. Hsu. Time spent examining patient, reviewing data and subsequent management of care: 10 Minutes. Documented by User: Dr. Evangelista Hsu MD 01/23/22 12:19 Objective Data Lab / Micro Data Result Diagrams: 01/21/22 04:50 01/21/22 04:50 Physical Exam Narrative Seen and examined. Patient does not feel improvement in breathing. No chest pain. General: Alert, Oriented x3, Cooperative BMI 33.8 kg/m? HEENT: Atraumatic, PERRLA, EOMI, Normocephalic Oral: No Gingival or Mucosal Lesions/ Ulcerations Neck: Supple, No JVD, Negative Carotid Bruits Lungs: Air entry severely diminished in the left lung. Trachea and mediastinal shift left side. Dyspnea on minimal exertion Cardiovascular: Bradycardia resolved. Normal S1, Normal S2, No murmurs Abdomen: Bowel Sounds Present, Soft, Non Tender, Non-Distended : No renal angle tenderness. No suprapubic tenderness. Extremities: No edema, Capillary Refill Less than 3 Seconds Skin: No rashes, No breakdown Musculoskeletal: Large scar on the right leg from hip to knee. Muscle weakness 3/5 at major joints of lower extremity. Patient cannot stand up. Wheelchair- bound. ROM severely restricted Neurological: Cranial nerves II-XII grossly intact, DTR 2/4 Psych/Mental Status: Flat affect Assessment & Plan Assessment/Plan (1) Abnormal chest CT: PLAN: This patient was seen in conjunction with INSTRUCTIONAL TECHNOLOGY TEACHERMoni. I have independently interviewed and examined the patient and reviewed pertinent history, examination findings, laboratory and plan of management. I have reviewed the note and agree with the documented findings with the few additional points. In brief, patient is admitted for bradycardia heart rate in 40s with acute on chronic hypoxic respiratory failure. Patient baseline O2 requirement is 2 L admitted with 6 L O2 through nasal cannula. During evaluation in ED, chest CT scan showed complete opacification of left hemithorax along with mediastinal shift consistent with lung collapse. Possible differential bronchial obstruction/atelectasis. Patient also gives history that he had an scrapping done in left lung about 2 to 3 years ago in [facility]. Patient has a history of restrictive lung disease due to rheumatoid arthritis and is on amiodarone. Dr. Delgado recommended bronchoscopy with biopsy but unfortunately he is on Xarelto and needs at least 48 hours off Xarelto prior to the scope therefore scheduled on Monday. In the interim, ultrasound lung was done and reported a small left pleural effusion with loculation. 01/23: No fever. Dyspnea on minimal exertion. On 4 L of oxygen. No improvement on breathing. The patient has other comorbidities which include paroxysmal A. fib on amiodarone, chronic hypoxic respiratory failure on 3 L of home oxygen, COPD with no exacerbation. History of rheumatoid arthritis, hypertension and depression. Last echo in October 2018 reported EF 55% with normal LV systolic wall motion, size and systolic function. History of GI bleed type II with isolated gastric varices portal hypertensive gastropathy. I have discussed my assessment with Moni KEARNS and orders have been reviewed. Charges/Coding Visit Charges Inpatient E&M: 50602 Subs Hosp L2
[2022-01-23] MEDS: guaiFENesin 10 ML UDC (200MG/10ML) PO (14:28)
[2022-01-23] MEDS: Albuterol 2.5 MG/3 ML VIAL.NEB. INHALATION (14:55)
[2022-01-24] VITALS (20 sets, daily range): BP systolic 95–126; BP diastolic 52–63; PULSE 66–97; RESP 12–18; TEMP 36.1–36.9; O2SAT 92–100
--- NOTE | 2022-01-24 | LUNG_PTH ---
PATIENT: FARRAH LOZA LOC: [facility] U#:[id number] AGE/SX: 81/M ROOM: [facility] RE01/20/[address]: Dr. Maryellen Harrison MD : 1940 BED: 1 DIS: 01/26/2022 SPEC #: [id number] RECD: 01/24/22 14:36 STATUS: GLO TRINIDAD #: [id number] BENI: 01/24/22 00:[address]: Mickey Daniels DEPT: SURGICAL PATHOLOGY RECD BY: Randy Plata ENTERED: 01/25/22 10:28 SP TYPE: LUNG BX OTHR DR: MD Dr. Mickey Niño MD Dr. Derek Brown, DO MD Hazel Hammond, CHEESE MAKER-C Tissues: Lung, NOS Procedures: Special Stain Group I Surgery Specimen Level IV AFB Stain (control) GMS Stain (control) Comments: @ Ordering doctor for NITHYA edited from to @ by SAMSON at 01/25/22 144 @ Submitting doctor edited from to @ by RGOOD at 01/25/22 1445 HEADER OPERATION: Bronchoscopy with biopsy PRE-OP DIAGNOSIS: Left lung collapse TISSUE SUBMITTED: Left upper lobe lung, endobronchial biopsy MICROSCOPIC DIAGNOSIS Left upper lung, endobronchial biopsy: Bronchial and subbronchial tissue with chronic and acute inflammation. No evidence of malignancy. Negative for acid-fast bacilli and fungal organisms. See comment. AM:meghann 01/26/2022 COMMENT AFB and GMS stains with matched controls were used in the evaluation of this case. See corresponding cytology case [id number]. MICROSCOPIC DESCRIPTION Slides are reviewed. GROSS DESCRIPTION Received in fixative is one container labeled with the patient's name and designated endobronchial biopsy left upper lobe. The specimen consists of multiple irregular and elongated fragments of rowlel tissue that in aggregate measure 1.2 x 0.2 x 0.1 cm. The specimen is totally submitted in one cassette. / AM:meghann 01/25/2022 TC:2 CPT: 64058, 65779 x2
--- NOTE | 2022-01-24 | FLU_PTH ---
PATIENT: FARRAH LOZA LOC: [facility] U#:[id number] AGE/SX: 81/M ROOM: [facility] RE01/20/[address]: Dr. Maryellen Harrison MD : 1940 BED: 1 DIS: 01/26/2022 SPEC #: [id number] RECD: 01/24/22 14:36 STATUS: GLO REQ #: [id number] BENI: 01/24/22 00:[address]: Mickey Daniels DEPT: CYTOLOGY RECD BY: Randy Plata ENTERED: 01/25/22 10:27 SP TYPE: Fluid OTHR DR: MD Dr. Mickey Niño MD Dr. Derek Brown, DO Dr. Nana Yaa Koram, MD Christina Muller, FOOD SAFETY TECHNICIAN-C Tissues: Lung, NOS Procedures: Special Stain Group II Special Stain Group I Surgery Specimen Level IV AFB Stain (control) GMS Stain (control) Cytospin Fluid Comments: @ Specimen number changed from [id number] to [id number] @ on 01/25/22 at 1444 by SAMSON. @ Ordering doctor for SSII edited from to @ by SAMSON at 01/25/22 1445 @ Ordering doctor for SUIV edited from to @ by SAMSON at 01/25/22 1445 @ Ordering doctor for CYSPIN edited from to @ by SAMSON at 01/25/22 1445 @ Submitting doctor edited from to @ by RGOOD at 01/25/22 1445 HEADER OPERATION: Bronchoscopy with biopsy PRE-OP DIAGNOSIS: Left lung collapse TISSUE SUBMITTED: Left lung washing DIAGNOSIS CYTOLOGY Bronchoscopy fluid (cytospin and cell block): Marked acute inflammation. Negative for malignant cells. Negative for acid-fast bacilli and fungal organisms. See comment. AM:meghann 01/26/2022 COMMENT AFB and GMS stains with matched controls were used in the evaluation of this case. Rare fragments of benign skeletal muscle are identified. See corresponding surgical case [id number]. CYTOLOGY STUDY Slides are reviewed. CYTOLOGY GROSS Received is 50 ml of red cloudy fluid labeled with the patient's name and and designated per the requisition as left lung washing. Submitted for cytology preparation including cell block. / meghann 01/25/2022 TC:2 CPT: 72283, 85558, 53874 x2
--- NOTE | 2022-01-24 05:18 | RAD_ITS ---
STUDY: X-RAY CHEST REASON FOR EXAM: Male, 81 years old. Respiratory Failure TECHNIQUE: Single AP portable view of the chest. COMPARISON: 01/20/2022 FINDINGS: Stable complete opacification of the left hemithorax with leftward mediastinal shift and tracheal deviation. Likely related to some combination of volume loss and effusion and atelectasis. Mildly hypoinflated right lung which is essentially clear. Possible obstruction of the left mainstem bronchus with abrupt truncation Remainder is stable RAD/Chest 1 View (Portable) IMPRESSION: As above Electronically Signed: Sabino Cobb DO at 6:50 EDT ,
[2022-01-24 05:21] LABS: Absolute Lymphocyte Count 1.45 X10^3/uL (0.83-4.51); Absolute Neutrophil Count 11.5 X10^3/uL (2.0-7.7); Basophil# 0.01 X10^3/uL; Basophil% 0.1 % (0-1); Hematocrit 29.3 % (40-54); Hemoglobin 8.5 g/dL (13.0-16.5); Lymphocyte # 1.45 X10^3/ul (0.83-4.51); Lymphocyte % 10.3 % (19-41); Mean Corpuscular Hgb 30.4 pg (27.0-32.0); Mean Corpuscular Volume 104.6 fL (80-94); Mean Platelet Vol. 9.8 fl (6.2-12.0); Monocyte# 1.08 X10^3/uL; Monocyte% 7.6 % (0-10); NRBC Flagged by Analyzer 0 % (0-5); Neutrophil % 81.4 % (47-70); Platelet Count 213 K/mm3 (150-450); RBC Distribution Width CV 15.1 % (11.6-14.6); RBC Distribution Width SD 58.1 fl (35.1-43.9); White Blood Count 14.1 K/mm3 (4.4-11.0)
[2022-01-24 05:32] LABS: International Normalized Ratio 1.3; Prothrombin Time (Protime)PT. 15.1 SECONDS (11.7-14.9)
[2022-01-24 05:33] LABS: Partial Thromboplast Time 33.7 Seconds (24.1-36.2)
[2022-01-24 05:43] LABS: Anion Gap 0 (5-15); BUN 26 mg/dL (7-18); BUN/Creat Ratio 39.9 RATIO (10-20); Calcium,Total 8.7 mg/dL (8.5-10.1); Chloride 95 mmol/L (98-107); Creatinine, Serum 0.65 mg/dL (0.70-1.30); EST Glomerular Filtration Rate 125 mL/min (>60); Est Glom Filt Rate - Afr Amer 151 mL/min (>60); Estimated Creatinine Clearance 69.24 ml/min; Glucose 118 mg/dL (74-106); Potassium 3.9 mmol/L (3.5-5.1); Sodium Level 137 mmol/L (136-145)
[2022-01-24] MEDS: Menthol/Lanolin/Calamine/Znox 113 GM Tube 1 APPLIC TOPICAL ×3 (05:51→21:43)
--- NOTE | 2022-01-24 07:39 | PN.CC_ITS ---
Assessment & Plan Assessment/Plan (1) Abnormal chest CT: PLAN: RECOMMENDATIONS: 1. Bronchoscopy tentatively at 1:30 PM today 2. Wean supplemental oxygen as tolerated for saturations greater than 90%. 3. Continue aggressive bronchopulmonary hygiene. 4. Await results of bronchoscopy prior to making further recommendations. IMPRESSIONS: 1. Abnormal chest CT The patient has had aggressive pulmonary toileting measures over the weekend. Unfortunately, chest x-ray this morning shows continued opacification with a bronchial cutoff sign on the left. Patient is tolerating nasal cannula oxygen. I agree with the assessment that the patient requires a bronchoscopy. Patient is willing to do this later today. This is tentatively scheduled for 1:30 PM. Patient will likely require monitoring in the hospital following the procedure given the amount of supplemental oxygen that is being required unless there is a significant mucous plug that can be liberated. 2. History of rheumatoid arthritis/atrial fibril lation/hypertension/depression Complicates care, management, recovery and prognosis. Continue home medications as indicated. Patient likely can have Xarelto reinitiated tomorrow morning. This evaluation was complete independent of bronchoscopy. Assessment for safety, consent and updating on chest x-ray were all completed and independent of bronchoscopy scheduled later today. Subjective Subjective Patient did okay overnight. Patient overall feels subjectively unchanged compared to previous. Patient did not reported any significant change in his cough. Patient has tolerated aggressive pulmonary toileting over the weekend. Patient understands that a bronchoscopy would be indicated and is agreeable after review the risks, benefits and alternatives. Objective Data Objective Data Vital Signs: Vital Signs Temp Pulse Resp BP Pulse Ox 36.7 C 88 18 102/52 L 94 01/24/22 04:20 01/24/22 07:00 01/24/22 04:20 01/24/22 04:20 01/24/22 04:20 Oxygen Flow Rate (L/min) 6 Oxygen Delivery Method Nasal Cannula Weight: 122.5 kg Body Mass Index (BMI) 33.7 Intake & Output: Intake and Output for Last 24 Hours 01/22/22 01/23/22 01/24/22 22:59 23:59 23:59 Intake Total Output Total 100 / 100 Balance -100 / -100 Lab / Micro Data Result Diagrams: 01/24/22 04:29 01/24/22 04:29 Labs: Laboratory Results - last 24 hr 01/24/22 04:29: WBC 14.1 H, RBC 2.80 L, Hgb 8.5 L, Hct 29.3 L, MCV 104.6 H, MCH 30.4, MCHC 29.0 L, RDW Std Deviation 58.1 H, RDW Coeff of Deandre 15.1 H, Plt Count 213, MPV 9.8, Immature Gran % (Auto) 0.600, Neut % (Auto) 81.4 H, Lymph % (Auto) 10.3 L, [place] % (Auto) 7.6, Eos % (Auto) 0.0, Baso % (Auto) 0.1, Absolute Neuts (auto) 11.5 H, Absolute Lymphs (auto) 1.45, Nucleated RBC % 0 01/24/22 04:29: PT 15.1 H, INR 1.3, APTT 33.7 01/24/22 04:29: Sodium 137, Potassium 3.9, Chloride 95 L, Carbon Dioxide 42.0 H, Anion Gap 0 L, BUN 26 H, Creatinine 0.65 L, Estim Creat Clear Calc 69.24, Est GFR (MDRD) Af Amer 151, Est GFR (MDRD) Non-Af 125, BUN/Creatinine Ratio 39.9 H, Glucose 118 H, Calcium 8.7 Radiography Diagnostic Testing: Radiology Impression Chest X-Ray 01/24/22 05:18 IMPRESSION: As above Electronically Signed: Sabino Cobb DO at 6:50 EDT Reading Location ID and State: [address] [place] [address] Tel , Service support , Rhythm Strip Rhythm Strip: Sinus Rhythm Rate: 75 Ectopy: None Physical Exam Const alert and no apparent distress General Appearance: cooperative Nutritional Appearance: obese HEENT normocephalic and head/scalp atraumatic Eyes PERRL, EOMs intact bilaterally and conjunctivae normal Neck supple General: trachea midline Resp Effort and Inspection: Negative for actively coughing Auscultation: diminished lung sounds left throughout Cardio regular rate, regular rhythm, no murmurs, no rub and no gallops GI normal to inspection, nondistended, normoactive bowel sounds Extremity Extremity Narrative: Lymphedema bilateral upper extremities. Sharan wraps in place. General Extremity: edema; Negative for clubbing Skin no rashes or lesions noted Neuro CN's II-XII intact bilaterally, moves all extremities and no focal motor deficits Psych Mood & Affect: flat affect Charges/Coding Visit Charges Inpatient E&M: 87955 Subs Hosp L2
[2022-01-24] MEDS: Losartan Potassium 25 MG Tablet PO (10:10)
[2022-01-24] MEDS: DULoxetine Hcl 30 MG Capsule PO ×2 (10:10→21:45)
[2022-01-24] MEDS: Cholecalciferol (VIT D3) 25 MCG TABLET (1,000 UNITS) 50 MCG PO (10:10)
[2022-01-24] MEDS: Pantoprazole Sodium 40 MG Tablet PO (10:10)
[2022-01-24] MEDS: Fluticasone 0.05% 1 SPRAY NASAL.SRY NASAL ×2 (10:10→21:44)
[2022-01-24] MEDS: Ascorbic Acid 500 MG Tablet PO ×2 (10:10→21:44)
[2022-01-24] MEDS: Azelastine HCl NASAL.SRY 1 SPRAY NASAL ×2 (10:10→21:44)
[2022-01-24] MEDS: Senna/Docusate Sodium 1 Tablet PO ×2 (10:10→21:45)
[2022-01-24] MEDS: Amiodarone 200 MG Tablet PO (10:10)
[2022-01-24] MEDS: Carvedilol 12.5 MG Tablet PO ×2 (10:10→21:45)
[2022-01-24] MEDS: Ferrous Sulfate 325 MG Tablet PO (10:11)
[2022-01-24] MEDS: Methotrexate 2.5 MG Tablet 20 MG PO (10:11)
[2022-01-24] MEDS: Folic Acid 1 MG Tablet 0.5 MG PO (10:11)
[2022-01-24] MEDS: Furosemide 40 MG Tablet PO (10:17)
[2022-01-24] MEDS: 0.9% Saline Lock 10 ML Syringe IV ×2 (10:21→15:45)
--- NOTE | 2022-01-24 12:09 | PCM.PN.HOSP ---
Documented by User: Moni Victoria USER EXPERIENCE TEAM LEAD, USER EXPERIENCE TEAM LEAD-C 01/24/22 12:22 Subjective Subjective Patient seen and examined. Remains short of breath. Denies new symptoms or complaints. To undergo bronchoscopy with biopsy this afternoon. Objective Data Objective Data Vital Signs: Vital Signs Temp Pulse Resp BP Pulse Ox 98.4 F 71 18 117/57 L 98 01/24/22 10:00 01/24/22 10:00 01/24/22 10:00 01/24/22 10:00 01/24/22 10:15 Oxygen Flow Rate (L/min) 6 Oxygen Delivery Method Nasal Cannula Weight: 270 lb 1.06 oz Body Mass Index (BMI) 33.7 Intake & Output: Intake and Output for Last 24 Hours 01/22/22 01/23/22 01/24/22 22:59 23:59 23:59 Intake Total Output Total 100 / 100 Balance -100 / -100 Lab / Micro Data Result Diagrams: 01/24/22 04:29 01/24/22 04:29 Labs: Laboratory Results - last 24 hr 01/24/22 04:29: WBC 14.1 H, RBC 2.80 L, Hgb 8.5 L, Hct 29.3 L, MCV 104.6 H, MCH 30.4, MCHC 29.0 L, RDW Std Deviation 58.1 H, RDW Coeff of Deandre 15.1 H, Plt Count 213, MPV 9.8, Immature Gran % (Auto) 0.600, Neut % (Auto) 81.4 H, Lymph % (Auto) 10.3 L, [place] % (Auto) 7.6, Eos % (Auto) 0.0, Baso % (Auto) 0.1, Absolute Neuts (auto) 11.5 H, Absolute Lymphs (auto) 1.45, Nucleated RBC % 0 01/24/22 04:29: PT 15.1 H, INR 1.3, APTT 33.7 01/24/22 04:29: Sodium 137, Potassium 3.9, Chloride 95 L, Carbon Dioxide 42.0 H, Anion Gap 0 L, BUN 26 H, Creatinine 0.65 L, Estim Creat Clear Calc 69.24, Est GFR (MDRD) Af Amer 151, Est GFR (MDRD) Non-Af 125, BUN/Creatinine Ratio 39.9 H, Glucose 118 H, Calcium 8.7 Radiography Diagnostic Testing: Radiology Impression Chest X-Ray 01/24/22 05:18 IMPRESSION: As above Electronically Signed: Sabino Cobb DO at 6:50 EDT , Rhythm Strip Rhythm Strip: Sinus Rhythm Rate: 75 Ectopy: None Physical Exam Const alert, oriented x3 and no apparent distress Orientation / Consciousness: awake, oriented to person, oriented to place and oriented to time HEENT normocephalic and moist oral mucous membranes Eyes PERRL, EOMs intact bilaterally and conjunctivae normal Neck no lymphadenopathy Resp normal respiratory effort and clear to auscultation bilaterally Auscultation: diminished lung sounds Cardio regular rate, regular rhythm and no murmurs Peripheral Pulses: pulses 2+ throughout GI normal to inspection, nondistended, normoactive bowel sounds, non-tender and non-distended Extremity normal to inspection General Extremity: edema bilateral lower extremity (peter wraps in place) Skin no rashes or lesions noted Lesions: no lesions Rashes: no rashes Trauma: no lacerations or abrasions Neuro CN's II-XII intact bilaterally, no focal motor deficits, no sensory deficits noted and deep tendon reflexes 2+ bilaterally Psych mental status grossly normal and affect normal Assessment & Plan Assessment/Plan (1) Abnormal chest CT: (2) Collapse of left lung: PLAN: 1. Acute on chronic hypoxic respiratory failure secondary to collapse of left lung, potential bronchial obstruction-CT showed left lung collapse with noncalcified nodules of the right lower lobe. Pulmonary medicine following. Plan for bronchoscopy and biopsy this afternoon. Xarelto on hold. Chest ultrasound shows small left pleural effusion with loculations. Repeat CXR this morning shows stable complete opacification of the left hemithorax with leftward mediastinal shift and tracheal deviation. 2. Bradycardia-reported by home health provider. Now stable, no further bradycardia during admission. Continue amiodarone and carvedilol with hold parameters. Echo with EF 55 to 60%. 3. Paroxysmal atrial fibrillation-continue amiodarone, carvedilol. Xarelto on hold. 4. Chronic hypoxic respiratory failure secondary to chronic COPD-no acute exacerbation. Continue supplement oxygen to maintain O2 above 90%. As needed aerosols. 5. History of rheumatoid arthritis-on methotrexate and hydroxychloroquine. 6. Hypertension-continue carvedilol, losartan. 7. Depression-on duloxetine. 8. 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 Follow-up with GI as outpatient. DVT prophylaxis- SCDs, xarelto on hold This patient was seen by Moni Victoria NP-C under the supervision of Dr. Harrison. Time spent examining patient, reviewing data and subsequent management of care: 11 Minutes. Documented by User: Dr. Maryellen Harrison MD 01/24/22 15:17 Objective Data Lab / Micro Data Result Diagrams: 01/24/22 04:29 01/24/22 04:29 Charges/Coding Addendum Addendum: This patient was seen in conjunction with Moni Victoria NP. I have independently interviewed and examined the patient and reviewed pertinent historical, laboratory, and other data. I have reviewed her note and concur with her documentation Patient was seen and examined. He is going for bronchoscopy today. He denied any chest discomfort or dizziness or palpitation. BP is 112/55, heart rate 85, SPO2 is 99% on 6 L, temperature 96.9 F, Physical Exam: Gen: Comfortable, not pale, not jaundiced, obese, on 6 L oxygen CVS:HS I +II, regular, no murmurs RESP: Diminished at lung bases GI: BS present and normal, soft, nontender, no palpable organs EXT: Generalized edema, anasarca Labs: WBC count 14.1, hemoglobin is 8.5, previous hemoglobin was 9.3, platelets 213, BMP is unremarkable Assessment: 1. At acute on chronic respiratory failure 2. Left lung collapse 3. Bradycardia 4. Paroxysmal atrial fibrillation 5. Rheumatoid arthritis 6. Hypertension 7. Depression Plan: Follow-up on bronchoscopy results Hold Xarelto Continue methadone and Coreg Continue to monitor vital Time spent coordinating patient's care, discussing with cardiology and nursin minutes Visit Charges Inpatient E&M: 66800 Subs Hosp L2
[2022-01-24] MEDS: Lidocaine 2% (5ml sdv) 5 ML VIAL.MPF (14:00)
[2022-01-24] MEDS: Lidocaine 2% Jelly 1 APPLIC Tube (14:00)
--- NOTE | 2022-01-24 14:25 | RAD_ITS ---
HISTORY: S/P bronch EXAMINATION/TECHNIQUE: XR Chest 1 View: Portable upright AP chest x-ray COMPARISON: 01/24/22 at 5:14 AM FINDINGS: LINES/DEVICES: None. LUNGS: Interval mild improved aeration left lung. No pneumothorax. MEDIASTINUM AND CARDIOVASCULAR STRUCTURES: Cardiac silhouette stable. BONES AND SOFT TISSUES: No acute bony abnormalities. RAD/Chest 1 View (Portable) IMPRESSION: Mildly improved aeration left lung status post bronchoscopy. at 1521 Reported and signed by: Faheem Rowe MD Electronically Signed: Faheem Rowe MD at 15:20 EDT ,
[2022-01-24 14:39] LABS: Cytology, Washings SEE PATHOLOGY REPORT
--- NOTE | 2022-01-24 14:42 | OP.BRONCH_ITS ---
Patient Name: Lorenzo Huerta Procedure Date: 01/24/2022 1:39 PM Date of : 1940 Age: 81 Procedure: Bronchoscopy Indications: Atelectasis of the left upper lobe, Atelectasis of the left lower lobe, Persistent atelectasis Providers: Mickey Daniels MD Medicines: See the Anesthesia note for documentation of the administered medications Complications: No immediate complications Procedure: Pre-Anesthesia Assessment: - Prior to the procedure, a History and Physical was performed, and patient medications and allergies were reviewed. The patient's tolerance of previous anesthesia was also reviewed. The risks and benefits of the procedure and the sedation options and risks were discussed with the patient. All questions were answered, and informed consent was obtained. Prior Anticoagulants: The patient has taken Xarelto (rivaroxaban), last dose was 3 days prior to procedure. ASA Grade Assessment: III - A patient with severe systemic disease. After reviewing the risks and benefits, the patient was deemed in satisfactory condition to undergo the procedure. After I obtained informed consent, the scope was passed under direct vision. Throughout the procedure, the patient's blood pressure, pulse, and oxygen saturations were monitored continuously. The bronchoscope was introduced through the right nostril and advanced to the tracheobronchial tree. The procedure was accomplished without difficulty. The patient tolerated the procedure well. The procedure was accomplished without difficulty. Findings: The nasopharynx/oropharynx appears normal. The larynx appears normal. The vocal cords appear normal. The subglottic space is normal. The trachea is of normal caliber. The girish is sharp. Mucus noted obstructing main griish on initial evaluation. The tracheobronchial tree of the right lung was examined to at least the first subsegmental level. Bronchial mucosa and anatomy in the right lung are normal; there are no endobronchial lesions, and no secretions. Left Lung Abnormalities: Mucus, plugging the airway, was found throughout the left tracheobronchial tree. The mucus was copious, mucopurulent, tenacious and thick. In total, 40 mL of mucus removed using 100 mL of saline throughout the bronchial tree. The underlying mucosa is erythematous. Edema was found throughout the left tracheobronchial tree. Endobronchial biopsies of a lesion were performed in the left upper lobe using a forceps and sent for histopathology examination. 7 were obtained. Impression: - Atelectasis of the left upper lobe - Atelectasis of the left lower lobe - Persistent atelectasis - The airway examination of the right lung was normal. - A mucous plug was found throughout the tracheobronchial tree. - Edema was present throughout the tracheobronchial tree. - An endobronchial biopsy was performed. Recommendation: - Return patient to [facility] for observation. - Await biopsy and washing results. Procedure Code(s): --- Professional --- 02300, Bronchoscopy, rigid or flexible, including fluoroscopic guidance, when performed; with bronchial or endobronchial biopsy(s), single or multiple sites Diagnosis Code(s): --- Professional --- J98.11, Atelectasis T17.990A, Other foreign object in respiratory tract, part unspecified in causing asphyxiation, initial encounter R09.89, Other specified symptoms and signs involving the circulatory and respiratory systems CPT copyright 2017 [employer]. All rights reserved. The codes documented in this report are preliminary and upon habilitation worker review may be revised to meet current compliance requirements. MD Mickey Alvarez MD 01/24/2022 2:42:20 PM This report has been signed electronically. Number of Addenda: 0 Note Initiated On: 01/24/2022 1:39 PM
--- NOTE | 2022-01-24 15:14 | SUR.PHASEI ---
PT AWAITING TRANSFER TO FLOOR, VSS, CLEARED FOR D/C FROM PACU
--- NOTE | 2022-01-24 15:43 | CASEMGMT ---
Addendum entered by Shivani Nava 01/24/22 16:11: Dr. Toni Adams will be pt's Visiting physician and this has been updated in chart. Promise GLEZ CM Original Note: Call from [facility] and they state that pt's PCP had referred pt to their service and she will email this [facility] physicians name and also their contact info so that D/C summ/instructions can be faxed at d/c. CM will update chart once obtained. Promise GLEZ CM
[2022-01-24 19:06] LABS: Appearance/Body Fluid TURBID; Color/Body Fluid RED; Source- Body Fluid BRONCHIAL LAVAGE
[2022-01-24 19:10] LABS: Red Cell Count/Body Fluid 15572 /mm3
[2022-01-24 19:11] LABS: White Blood Count/Body Fluid 7550 /mm3
[2022-01-24 19:26] LABS: Body Fluid QC Type(s) BF2Q; Lymphocytes 17 %; Neutrophil (Segs) 76 %; Other Cell Type/BF 7 %
[2022-01-24] MEDS: guaiFENesin 1,200 MG Tablet 1200 MG PO (21:44)
[2022-01-25] VITALS (12 sets, daily range): BP systolic 75–124; BP diastolic 66–104; PULSE 62–84; RESP 18–20; TEMP 36.6–36.9; O2SAT 91–100
[2022-01-25] MEDS: Menthol/Lanolin/Calamine/Znox 113 GM Tube 1 APPLIC TOPICAL ×3 (05:53→21:18)
[2022-01-25 06:27] LABS: Absolute Lymphocyte Count 1.14 X10^3/uL (0.83-4.51); Absolute Neutrophil Count 14.1 X10^3/uL (2.0-7.7); Basophil# 0.01 X10^3/uL; Basophil% 0.1 % (0-1); Hematocrit 31.8 % (40-54); Hemoglobin 8.8 g/dL (13.0-16.5); Lymphocyte # 1.14 X10^3/ul (0.83-4.51); Lymphocyte % 7.1 % (19-41); Mean Corp Hgb Conc 27.7 g/dL (32-36); Mean Corpuscular Hgb 29.3 pg (27.0-32.0); Mean Platelet Vol. 9.5 fl (6.2-12.0); Monocyte# 0.63 X10^3/uL; Monocyte% 3.9 % (0-10); NRBC Flagged by Analyzer 0 % (0-5); Neutrophil # 14.09 X10^3/uL (2.7-7.7); Neutrophil % 88.1 % (47-70); Platelet Count 254 K/mm3 (150-450)
[2022-01-25 07:02] LABS: ALB/GLOB Ratio 0.4 RATIO (0.9-2.4); AST(SGOT) 13 U/L (15-37); Alanine Aminotransfer ALT/SGPT 13 U/L (16-61); Albumin, Serum 1.7 g/dL (3.2-5.0); Alkaline Phosphatase 54 U/L (45-117); Anion Gap 0 (5-15); BUN 34 mg/dL (7-18); BUN/Creat Ratio 39.8 RATIO (10-20); Calcium,Total 9.1 mg/dL (8.5-10.1); Chloride 96 mmol/L (98-107); Creatinine, Serum 0.85 mg/dL (0.70-1.30); EST Glomerular Filtration Rate 91 mL/min (>60); Est Glom Filt Rate - Afr Amer 111 mL/min (>60); Estimated Creatinine Clearance 81.46 ml/min; Globulin 4.2 g/dL (2.2-4.2); Glucose 127 mg/dL (74-106); Potassium 4.7 mmol/L (3.5-5.1); Protein, Total 5.9 g/dL (6.4-8.2); Sodium Level 137 mmol/L (136-145)
[2022-01-25] MEDS: Hydroxychloroquine 200 MG Tablet PO ×2 (08:05→16:10)
[2022-01-25] MEDS: Cholecalciferol (VIT D3) 25 MCG TABLET (1,000 UNITS) 50 MCG PO (08:06)
[2022-01-25] MEDS: Amiodarone 200 MG Tablet PO (08:06)
[2022-01-25] MEDS: Furosemide 40 MG Tablet PO (08:06)
[2022-01-25] MEDS: Losartan Potassium 25 MG Tablet PO (08:06)
[2022-01-25] MEDS: Calcium Carbonate 500 MG Tablet PO ×2 (08:06→16:10)
[2022-01-25] MEDS: DULoxetine Hcl 30 MG Capsule PO ×2 (08:06→21:20)
[2022-01-25] MEDS: Folic Acid 1 MG Tablet 0.5 MG PO (08:06)
[2022-01-25] MEDS: Senna/Docusate Sodium 1 Tablet PO ×2 (08:06→21:21)
[2022-01-25] MEDS: Ferrous Sulfate 325 MG Tablet PO (08:06)
[2022-01-25] MEDS: Ascorbic Acid 500 MG Tablet PO ×2 (08:07→21:21)
[2022-01-25] MEDS: Pantoprazole Sodium 40 MG Tablet PO (08:07)
[2022-01-25] MEDS: Carvedilol 12.5 MG Tablet PO (08:07)
[2022-01-25] MEDS: guaiFENesin 1,200 MG Tablet 1200 MG PO ×2 (08:07→21:20)
[2022-01-25] MEDS: Psyllium 1 PACKET PO (08:07)
[2022-01-25] MEDS: Azelastine HCl NASAL.SRY 1 SPRAY NASAL ×2 (08:08→21:18)
[2022-01-25] MEDS: Fluticasone 0.05% 1 SPRAY NASAL.SRY NASAL ×2 (08:08→21:18)
[2022-01-25] MEDS: Polyethylene Glycol 3350 17 GM PACKET PO (08:09)
[2022-01-25] MEDS: Juven (unflavored) Packet 1 PACKET PO ×2 (08:09→16:10)
--- NOTE | 2022-01-25 08:33 | PCM.PN.INT ---
Assessment & Plan Assessment/Plan (1) Abnormal chest CT: PLAN: RECOMMENDATIONS: 1. Continue aggressive pulmonary toileting 2. Wean supplemental oxygen as tolerated for saturations greater than 90%. 3. Continue aggressive bronchopulmonary hygiene. 4. Await results of bronchoscopy prior to making further recommendations. 5. Okay to reinitiate Xarelto from my perspective IMPRESSIONS: 1. Abnormal chest CT secondary to mucous plugging Bronchoscopy yesterday showing extensive mucus plugging throughout the bronchial tree. Patient has responded well to mucus removal, but cough remains weak. We will continue with vest therapy. Cultures are currently pending, but patient is afebrile. If these are positive, patient would benefit from antibiotics. Patient should be out of bed as much as possible. Anticipate repeating chest x-ray tomorrow to see if recruitment is maintained. If patient continues to have issues, may need to address goals of therapy 2. History of rheumatoid arthritis/atrial fibrillation/hypertension/depression Complicates care, management, recovery and prognosis. Continue home medications as indicated. Okay to reinitiate Xarelto therapy from my perspective This evaluation was complete independent of bronchoscopy. Assessment for safety, consent and updating on chest x-ray were all completed and independent of bronchoscopy scheduled later today. Subjective Subjective Patient tolerated bronchoscopy yesterday. Patient subjectively is more interactive with better oxygenation today. Patient still has a weak cough, but has not reported any epistaxis or hemoptysis. Patient is tolerating vest therapy Objective Data Objective Data Vital Signs: Vital Signs Temp Pulse Resp BP Pulse Ox 36.6 C 67 18 111/88 H 92 01/25/22 05:00 01/25/22 07:20 01/25/22 05:00 01/25/22 05:00 01/25/22 05:00 Oxygen Flow Rate (L/min) 6 Oxygen Delivery Method Nasal Cannula Weight: 122.5 kg Body Mass Index (BMI) 33.7 Intake & Output: Intake and Output for Last 24 Hours 01/23/22 01/24/22 01/25/22 23:59 23:59 23:59 Intake Total 360 / 360 Output Total 275 / 275 Balance 85 / 85 Lab / Micro Data Result Diagrams: 01/25/22 05:48 01/25/22 05:48 Labs: Laboratory Results - last 24 hr 01/24/22 13:45: Fluid Source BRONCHIAL LAVAGE, Fluid Color RED, Fluid Appearance TURBID, Fluid WBC 7550, Fluid RBC 28235, Fluid Tot Cell Count TNP, Fluid Neutrophils 76, Fluid Lymphocytes 17, Fluid Other Cells 7, Fl Pathologist Comment May follow, Fluid Comment 2 Not Reportable 01/25/22 05:48: WBC 16.0 H, RBC 3.00 L, Hgb 8.8 L, Hct 31.8 L, MCV 106.0 H, MCH 29.3, MCHC 27.7 L, RDW Std Deviation 58.0 H, RDW Coeff of Deandre 15.0 H, Plt Count 254, MPV 9.5, Immature Gran % (Auto) 0.800, Neut % (Auto) 88.1 H, Lymph % (Auto) 7.1 L, [place] % (Auto) 3.9, Eos % (Auto) 0.0, Baso % (Auto) 0.1, Absolute Neuts (auto) 14.1 H, Absolute Lymphs (auto) 1.14, Nucleated RBC % 0 01/25/22 05:48: Sodium 137, Potassium 4.7, Chloride 96 L, Carbon Dioxide 41.0 H, Anion Gap 0 L, BUN 34 H, Creatinine 0.85, Estim Creat Clear Calc 81.46, Est GFR (MDRD) Af Amer 111, Est GFR (MDRD) Non-Af 91, BUN/Creatinine Ratio 39.8 H, Glucose 127 H, Calcium 9.1, Total Bilirubin 0.30, AST 13 L, ALT 13 L, Alkaline Phosphatase 54, Total Protein 5.9 L, Albumin 1.7 L, Globulin 4.2, Albumin/Globulin Ratio 0.4 L Micro: Microbiology 01/24/22 13:45 Wash - Bronchial Wash Gram Stain - Final Radiography Diagnostic Testing: Radiology Impression Chest X-Ray 01/24/22 14:25 IMPRESSION: Mildly improved aeration left lung status post bronchoscopy. at 1521 Reported and signed by: Faheem Rowe MD Electronically Signed: Faheem Rowe MD at 15:20 EDT Reading Location ID and State: [facility] / [place] Tel , Service support , Rhythm Strip Rhythm Strip: Sinus Rhythm Rate: 75 Ectopy: None Physical Exam Const alert and no apparent distress General Appearance: cooperative Nutritional Appearance: obese HEENT normocephalic and head/scalp atraumatic Eyes PERRL, EOMs intact bilaterally and conjunctivae normal Neck supple General: trachea midline Resp Resp Narrative: Improved air exchange on the left today Effort and Inspection: Negative for actively coughing Auscultation: diminished lung sounds left throughout Cardio regular rate, regular rhythm, no murmurs, no rub and no gallops GI normal to inspection, nondistended, normoactive bowel sounds Extremity Extremity Narrative: Lymphedema bilateral upper extremities. Sharan wraps in place. General Extremity: edema; Negative for clubbing Skin no rashes or lesions noted Neuro CN's II-XII intact bilaterally, moves all extremities and no focal motor deficits Psych Mood & Affect: flat affect Charges/Coding Visit Charges Inpatient E&M: 77769 Subs Hosp L3
--- NOTE | 2022-01-25 10:29 | CON.PCM.PA_ITS ---
Assessment & Plan Assessment/Plan (1) Shortness of breath: (2) Debility: (3) Chronic respiratory failure with hypoxia and hypercapnia: (4) Pleural effusion: (5) Paroxysmal A-fib: (6) Rheumatoid arthritis: QUALIFIERS: Rheumatoid arthritis location: multiple sites Rheu matoid factor presence: unspecified presence Qualified Code(s): M06.9 - Rheumatoid arthritis, unspecified PLAN: 81-year-old male with history of chronic hypoxemic and hypercarbic respiratory failure, multiple comorbidities, seen today for palliative care consultation for symptom management of shortness of breath and supportive care when he is discharged home. 1. Dyspnea: Multifactorial, Respiratory failure, Pleural effusion and A. fib. Patient close to baseline oxygen requirements.Follows with pulmonary as an outpatient. Patient would likely not be a candidate for Roxanol at this point due to his debility and nonambulatory status. If his dyspnea becomes more severe in general, would be candidate pending official opioid risk evaluation. If patient would decide to forego further aggressive treatment, he would be hospice appropriate at this point given his severity of lung disease, debility, and comorbidities. 2. Paroxysmal A. fib: Appears to be controlled rate at this point. Following with cardiology. 3. Rheumatoid arthritis: Takes methotrexate and Plaquenil. Unclear if he follows with rheumatology. Thank you for the opportunity to participate in this patient's care, please do not hesitate to contact [facility] with any further questions or concerns, direct line is [phone]. We will follow up after discharge and will discuss palliative services further at that time. Contact information left with the patient. Also discussed with his , Altagracia. Greater than 50% of F2F visit dedicated to education and counseling of palliative care services, medications, comorbid conditions and potential assistance with management, and plan of care moving forward. Start time: 1029 End time: 1127 HPI Consult Data Date of Consult: 01/25/22 HPI Narrative HPI Narrative: FARRAH LOZA, is a 81 M who presented to [facility] 01/20/2022 with a bradycardia and weakness. Patient has history of chronic hypoxemic and hypercarbic respiratory failure with oxygen requirement of 3 to 5 L in the home. Patient hospitalized approximately a month ago for pneumonia. Patient was admitted for further evaluation management. He was seen by pulmonary/government gauger who recommended bronchoscopy for possible mucous plugging seen on CT. Patient is following with Dr. Daniels as an outpatient. PFTs in December 2020 showed irreversible moderately severe large airway obstructive ventilatory defect with symmetric reduction in diffusing capacity. Echocardiogram showed EF of 55 to 60%. Normal LV systolic function. He is on Xarelto and amiodarone for paroxysmal A. fib. Patient had bronchoscopy 01/24 which showed mucous plug throughout tracheobronchial tree. Biopsies were taken. He is doing much better overall with his breathing since the bronch. Saturating 92 to 97% on 5 to 6 L of oxygen. Vitals have remained stable. Patient has leukocytosis today of 16,000, he did receive 1 dose of dexamethasone for bronchoscopy. He is anemic at 8.8. Bicarb is 41. Patient lives at home with his Altagracia and granddaughter Indira. Patient had a fall in September 2021 and was at SNF and recently discharged home. He was never able to gain his strength back and is unable to stand to transfer. Patient requires Kindra lift. Other DME in the home includes hospital bed, manual wheelchair, home O2, Kindra lift. He is currently enrolled in [facility] and has longterm/PT/OT. He follows with Dr. Zhu for orthopedics, Dr. Daniels for pulmonary, and Dr. Sabillon cardiology. Patient uses [facility] in [place] for pharmacy. Plan on discharge is to return home as family would like to care for him there and does not wish to admit him to ECF. Patient reports he may be feels a little bit better with his breathing. He is very fatigued. He feels cold. No other complaints. Had advance care planning discussion and patient wishes to be full code at this point. He does not wish to be on a ventilator long-term. Discussed with on the phone. She wishes for him to continue with therapy and is hopeful that he will stand and be able to pivot, possibly even take a few steps. States that would help with his care at home, she does not wish to put him in a halfway. Her daughter and granddaughter are supportive and help out in the home. She has to pay for home health aide [id number] and is concerned about financial situation. Again, they have [facility] with longterm, PT, OT, as well as enrolling in [facility]. Patient is a palliative appropriate, hospice appropriate if he decides to forego treatment. This was explained to the , she would like more information and we will have a liaison reach out to her in the future. COUNT INCLUDES THE [facility] Medical History Acute pain of mouth Anticoagulated Atrial fibrillation COPD (chronic obstructive pulmonary disease) External hemorrhoid HTN (hypertension) On home oxygen therapy Paroxysmal A-fib Restrictive lung disease Rheumatoid arthritis Small bowel obstruction Home Medications hydroxychloroquine 200 mg PO BID 11/07/18 [History Last Taken 01/19/22] methotrexate sodium 8 tab PO MO 11/07/18 [History Last Taken 01/17/22] cholecalciferol (vitamin D3) 2,000 unit PO DAILY@0800 12/13/18 [History Last Taken 01/19/22] ferrous sulfate 325 mg (65 mg iron) tablet,delayed release 325 mg PO DAILY tab 03/11/19 [History Last Taken 01/19/22] furosemide 40 mg tablet 40 mg PO DAILY tab 12/25/19 [History Last Taken 01/19/22] duloxetine 30 mg capsule,delayed release 30 mg PO BID cap 05/26/21 [History Last Taken 01/19/22] losartan 25 mg PO DAILY 09/21/21 [History Last Taken 01/19/22] Systane Complete 2 drp EACH EYE Q2H PRN PRN 11/06/21 [History Last Taken 01/19/22] azelastine 1 spray INTRANASAL BID 11/15/21 [History Last Taken 01/19/22] calcium carbonate 500 mg PO BIDCM 11/15/21 [History Last Taken Unknown] carvedilol 12.5 mg PO BID 11/15/21 [History Last Taken 01/19/22] fluticasone propionate 1 spray INTRANASAL BID 11/15/21 [History Last Taken 01/19/22] folic acid 0.4 mg PO DAILY 11/15/21 [History Last Taken 01/19/22] omeprazole 40 mg PO DAILY 11/15/21 [History Last Taken 01/19/22] sennosides-docusate sodium [Senna Plus] 1 tab PO BID 11/15/21 [History Last Taken 01/19/22] nystatin [Nyamyc] 1 applic TOPICAL BID #0 g 11/17/21 [Rx Last Taken 01/19/22] rivaroxaban 20 mg tablet 20 mg PO DAILY #90 tab 11/18/21 [Rx Last Taken 01/19/22] ascorbic acid (vitamin C) 500 mg PO BID 01/20/22 [History Last Taken 01/19/22] polyethylene glycol 3350 17 g PO DAILY 01/20/22 [History Last Taken 01/19/22] psyllium husk [Metamucil] 1 tbsp PO DAILY 01/20/22 [History Last Taken 01/19/22] amiodarone 200 mg tablet 200 mg PO DAILY #90 tab 01/21/22 [Rx Last Taken Unknown] Allergy/AdvReac Type Severity Reaction Status Date / Time Penicillins Allergy Severe rash Verified 01/20/22 11:27 Family History Mother Pancreatic cancer Father Heart problem Sister Breast cancer Other Paroxysmal A-fib Surgical History History of bowel resection (11/08/18) History of carpal tunnel release of both wrists History of cholecystectomy History of right hip replacement History of rotator cuff surgery Status post trigger finger release Status post wrist surgery Social History household members: spouse and family Smoking Status: Never smoker alcohol intake: never caffeine: Yes Type: coffee Number of servings: 1 ROS ROS Narrative Review of systems otherwise negative from a constitutional, HEENT, respiratory, cardiovascular, GI, genitourinary, musculoskeletal, skin, neurologic, psychiatric and hematologic system unless stated above. Physical Exam Const no apparent distress Constitutional Narrative: semi lethargic but arousable. General Appearance: cooperative and ill appearing HEENT normocephalic and head/scalp atraumatic Neck supple General: trachea midline Resp Resp Narrative: No significant rales or rhonchi, severely diminished. No wheezing Effort and Inspection: symmetric chest movement Auscultation: diminished lung sounds Cardio regular rate, regular rhythm, S1 normal heart sound and S2 normal heart sound GI Inspection: central obesity Auscultation: normoactive bowel sounds Palpation: soft; Negative for tender Extremity General Extremity: edema; Negative for clubbing or cyanosis Skin no rashes or lesions noted Skin Narrative: Pale skin, bruising Neuro CN's II-XII intact bilaterally Speech: speech normal Psych cooperative Psych Narrative: Flat affect but cooperative Attention / Concentration: attention grossly intact
--- NOTE | 2022-01-25 12:23 | PN.HOSP_ITS ---
Documented by User: Moni Victoria REIMBURSEMENT CONSULTANT, REIMBURSEMENT CONSULTANT-C 01/25/22 12:29 Subjective Subjective Patient seen and examined. Does report some improvement in breathing following bronchoscopy yesterday. Denies fever, chills. Denies new symptoms or complaints. Objective Data Objective Data Vital Signs: Vital Signs Temp Pulse Resp BP Pulse Ox 98.4 F 62 20 H 119/104 H 95 01/25/22 08:40 01/25/22 11:00 01/25/22 08:40 01/25/22 08:40 01/25/22 08:40 Oxygen Flow Rate (L/min) 5 Oxygen Delivery Method Nasal Cannula Weight: 270 lb 1.06 oz Body Mass Index (BMI) 33.7 Intake & Output: Intake and Output for Last 24 Hours 01/23/22 01/24/22 01/25/22 23:59 23:59 23:59 Intake Total 360 / 360 Output Total 275 / 275 Balance 85 / 85 Lab / Micro Data Result Diagrams: 01/25/22 05:48 01/25/22 05:48 Labs: Laboratory Results - last 24 hr 01/24/22 13:45: Fluid Source BRONCHIAL LAVAGE, Fluid Color RED, Fluid Appearance TURBID, Fluid WBC 7550, Fluid RBC 309[address], Fluid Tot Cell Count TNP, Fluid Neutrophils 76, Fluid Lymphocytes 17, Fluid Other Cells 7, Fl Pathologist Comment May follow, Fluid Comment 2 Not Reportable 01/25/22 05:48: WBC 16.0 H, RBC 3.00 L, Hgb 8.8 L, Hct 31.8 L, MCV 106.0 H, MCH 29.3, MCHC 27.7 L, RDW Std Deviation 58.0 H, RDW Coeff of Deandre 15.0 H, Plt Count 254, MPV 9.5, Immature Gran % (Auto) 0.800, Neut % (Auto) 88.1 H, Lymph % (Auto) 7.1 L, [place] % (Auto) 3.9, Eos % (Auto) 0.0, Baso % (Auto) 0.1, Absolute Neuts (auto) 14.1 H, Absolute Lymphs (auto) 1.14, Nucleated RBC % 0 01/25/22 05:48: Sodium 137, Potassium 4.7, Chloride 96 L, Carbon Dioxide 41.0 H, Anion Gap 0 L, BUN 34 H, Creatinine 0.85, Estim Creat Clear Calc 81.46, Est GFR (MDRD) Af Amer 111, Est GFR (MDRD) Non-Af 91, BUN/Creatinine Ratio 39.8 H, Glucose 127 H, Calcium 9.1, Total Bilirubin 0.30, AST 13 L, ALT 13 L, Alkaline Phosphatase 54, Total Protein 5.9 L, Albumin 1.7 L, Globulin 4.2, Albumin/Globulin Ratio 0.4 L Micro: Microbiology 01/24/22 13:45 Wash - Bronchial Wash Gram Stain - Final 01/24/22 13:45 Wash - Bronchial Wash Respiratory Culture - Preliminary Gram negative yanira Radiography Diagnostic Testing: Radiology Impression Chest X-Ray 01/24/22 14:25 IMPRESSION: Mildly improved aeration left lung status post bronchoscopy. at 1521 Reported and signed by: Faheem Rowe MD Electronically Signed: Faheem Rowe MD at 15:20 EDT , Rhythm Strip Rhythm Strip: Sinus Rhythm Rate: 75 Ectopy: None Physical Exam Const alert, oriented x3 and no apparent distress Orientation / Consciousness: awake, oriented to person, oriented to place and oriented to time HEENT normocephalic and moist oral mucous membranes Eyes PERRL, EOMs intact bilaterally and conjunctivae normal Neck no lymphadenopathy Resp clear to auscultation bilaterally Auscultation: diminished lung sounds Cardio regular rate, regular rhythm and no murmurs Peripheral Pulses: pulses 2+ throughout GI normal to inspection, nondistended, normoactive bowel sounds, non-tender and non-distended Extremity normal to inspection Skin no rashes or lesions noted Lesions: no lesions Rashes: no rashes Trauma: no lacerations or abrasions Neuro CN's II-XII intact bilaterally, no focal motor deficits, no sensory deficits noted and deep tendon reflexes 2+ bilaterally Psych mental status grossly normal and affect normal Assessment & Plan Assessment/Plan (1) Abnormal chest CT: (2) Collapse of left lung: PLAN: 1. Acute on chronic hypoxic respiratory failure secondary to collapse of left lung, bronchial obstruction-CT showed left lung collapse with noncalcified nodules of the right lower lobe. Pulmonary medicine following. Patient underwent bronchoscopy 01/24/2022 which showed extensive mucus plugging. Patient responded well to mucus removal. Continue vest therapy. Cultures pending. Repeat chest x-ray in a.m. Resume Xarelto. 2. Bradycardia-reported by home health provider. Now stable, no further bradycardia during admission. Continue amiodarone and carvedilol with hold parameters. Echo with EF 55 to 60%. 3. Paroxysmal atrial fibrillation-continue amiodarone, carvedilol, Xarelto. 4. Chronic hypoxic respiratory failure secondary to chronic COPD-no acute exacerbation. Continue supplement oxygen to maintain O2 above 90%. As needed aerosols. 5. History of rheumatoid arthritis-on methotrexate and hydroxychloroquine. 6. Hypertension-continue carvedilol, losartan. 7. Depression-on duloxetine. 8. 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 Follow-up with GI as outpatient. DVT prophylaxis- susie Cook This patient was seen by ELZA GrecoC under the supervision of Dr. Harrison. Discharge planning: Palliative care consulted. Patient has poor baseline functional status, using Kindra lift at home. Patient's does not want him to return to SNF. Time spent examining patient, reviewing data and subsequent management of care: 12 Minutes. Documented by User: Dr. Maryellen Harrison MD 01/25/22 15:11 Objective Data Lab / Micro Data Result Diagrams: 01/25/22 05:48 01/25/22 05:48 Charges/Coding Addendum Addendum: This patient was seen in conjunction with Moni Victoria NP. I have independently interviewed and examined the patient and reviewed pertinent historical, laboratory, and other data. I have reviewed her note and concur with her documentation Patient was seen and examined. He is going for bronchoscopy today. He denied any chest discomfort or dizziness or palpitation. BP is 119/104, heart rate 62, SPO2 is 95% on 5 L, temperature 98.4 F, Physical Exam: Gen: Comfortable, not pale, not jaundiced, obese, on 5 L oxygen CVS:HS I +II, regular, no murmurs RESP: Diminished at lung bases GI: BS present and normal, soft, nontender, no palpable organs EXT: Generalized edema, anasarca Labs: WBC count 16.0, hemoglobin is 8.8, platelets 254, BMP is unremarkable Sputum cultures growing GNR Assessment: 1. Acute on chronic respiratory failure 2. Acute left lung collapse 3. Probable GNR pneumonia 4. Bradycardia 5. Paroxysmal atrial fibrillation 6. Rheumatoid arthritis 7. Hypertension 8. Depression Plan: Continue on Levaquin, follow-up on sputum cultures Continue Xarelto Continue Amiodarone and Coreg Continue to monitor vital Time spent coordinating patient's care, discussing with cardiology and nursin minutes Visit Charges Inpatient E&M: 18687 Subs Hosp L2
[2022-01-25] MEDS: levoFLOXacin IV 750 MG/150 ML BAG 100 MG IV (12:56)
[2022-01-25] MEDS: 0.9% Saline Lock 10 ML Syringe IV ×2 (12:56→21:22)
--- NOTE | 2022-01-25 14:23 | CASEMGMT ---
This RN CM to room to verify d/c plan and states [facility], and palliative. is requesting aide be added to HHC, this was added to order at this time. states that they have new bed being delivered to home and she may hire private duty aides, if needed. voices no further questions/concerns/needs and is aware to ask for CM if any further needs arise. SSttrang RN CM
[2022-01-25] MEDS: Rivaroxaban 20 MG Tablet PO (16:10)
[2022-01-26] VITALS (8 sets, daily range): BP systolic 130–134; BP diastolic 63–77; PULSE 73–79; RESP 18–24; TEMP 36.4–36.8; O2SAT 92–94
[2022-01-26] MEDS: Albuterol 2.5 MG/3 ML VIAL.NEB. INHALATION ×2 (03:54→07:36)
[2022-01-26 05:32] LABS: Absolute Lymphocyte Count 1.38 X10^3/uL (0.83-4.51); Absolute Neutrophil Count 13.8 X10^3/uL (2.0-7.7); Basophil# 0.01 X10^3/uL; Basophil% 0.1 % (0-1); Hematocrit 29.7 % (40-54); Hemoglobin 8.7 g/dL (13.0-16.5); Lymphocyte # 1.38 X10^3/ul (0.83-4.51); Lymphocyte % 8.7 % (19-41); Mean Corp Hgb Conc 29.3 g/dL (32-36); Mean Corpuscular Hgb 30.2 pg (27.0-32.0); Mean Corpuscular Volume 103.1 fL (80-94); Mean Platelet Vol. 9.2 fl (6.2-12.0); Monocyte# 0.69 X10^3/uL; Monocyte% 4.3 % (0-10); NRBC Flagged by Analyzer 0 % (0-5); Neutrophil # 13.78 X10^3/uL (2.7-7.7); Neutrophil % 86.5 % (47-70); Platelet Count 277 K/mm3 (150-450); RBC Distribution Width CV 14.9 % (11.6-14.6); RBC Distribution Width SD 56.2 fl (35.1-43.9); Red Blood Count 2.88 M/mm3 (4.6-6.2); White Blood Count 15.9 K/mm3 (4.4-11.0)
--- NOTE | 2022-01-26 05:35 | RAD_ITS ---
STUDY: X-RAY CHEST REASON FOR EXAM: Male, 81 years old. Cough TECHNIQUE: AP COMPARISON: 01/24/2022 FINDINGS: EKG leads project over the chest. Complete opacification of the left lung, worse since prior study. Developing opacity in the right lung base. Shift of the trachea towards the left. Normal size heart. Normal mediastinum and spring. Normal visualized pulmonary arteries. Normal visualized aortic arch and descending thoracic aorta. No acute bony process. There is no demonstrated abnormality of the visualized soft tissue structures of the upper abdomen. RAD/Chest 1 View (Portable) IMPRESSION: 1. Worsening opacification of the left lung with volume loss suggesting bronchial obstruction, including mucous plug. 2. Developing right lower lobe atelectasis or infiltrate. Electronically Signed: Garrett Portillo MD (Brooks) at 8:31 EDT ,
[2022-01-26] MEDS: Menthol/Lanolin/Calamine/Znox 113 GM Tube 1 APPLIC TOPICAL (05:49)
[2022-01-26 05:55] LABS: Anion Gap 0 (5-15); BUN 43 mg/dL (7-18); BUN/Creat Ratio 56.7 RATIO (10-20); Calcium,Total 9.3 mg/dL (8.5-10.1); Chloride 93 mmol/L (98-107); Creatinine, Serum 0.76 mg/dL (0.70-1.30); EST Glomerular Filtration Rate 105 mL/min (>60); Est Glom Filt Rate - Afr Amer 127 mL/min (>60); Estimated Creatinine Clearance 69.24 ml/min; Glucose 126 mg/dL (74-106); Potassium 4.7 mmol/L (3.5-5.1); Sodium Level 136 mmol/L (136-145)
[2022-01-26 10:09] LABS: Pathologist Comment/Body Fluid Reviewed
--- NOTE | 2022-01-26 10:23 | CASEMGMT ---
Updated clinicals with MARY order faxed to [facility] yesterday afternoon. This RN CM received call from Enio at [facility] stating that they will not be taking pt back at this time. This RN CM informed Enio that they need to call and notify that they will not be taking pt back. Per Dr. Daniels, pt is hospice appropriate and he plans to speak with pt/family today when able. Promise GLEZ CM
--- NOTE | 2022-01-26 10:27 | PN.CC_ITS ---
Assessment & Plan Assessment/Plan (1) Abnormal chest CT: PLAN: RECOMMENDATIONS: 1. Continue aggressive pulmonary toileting 2. Wean supplemental oxygen as tolerated for saturations greater than 90%. 3. Continue aggressive bronchopulmonary hygiene. 4. Will discuss with family about goals of therapy 5. Okay to reinitiate Xarelto from my perspective IMPRESSIONS: 1. Abnormal chest CT secondary to mucous plugging secondary to pneumonia Bronchoscopy yesterday showing extensive mucus plugging throughout the bronchial tree. Patient has responded well to mucus removal, but cough remains weak. We will continue with vest therapy. Cultures appear to show gram- negative. Patient was initiated on antibiotics yesterday. However, pulmonary hygiene is very poor and patient continues to have progressive atelectasis. Repeat bronchoscopy will likely not improve overall condition unless cough improves. May need to discuss with family about goals of therapy. 2. History of rheumatoid arthritis/atrial fibrilla tion/hypertension/depression Complicates care, management, recovery and prognosis. Continue home medications as indicated. Okay to reinitiate Xarelto therapy from my perspective This evaluation was complete independent of bronchoscopy. Assessment for safety, consent and updating on chest x-ray were all completed and independent of bronchoscopy scheduled later today. Subjective Subjective Patient did okay from a hemodynamic standpoint overnight. Oxygenation has done okay. Patient continues to report a very weak cough and lack of energy. Patient reportedly has tolerated his vest therapy. Objective Data Objective Data Chest x-ray was personally reviewed and shows progression of atelectasis, but not as severe as presentation. Vital Signs: Vital Signs Temp Pulse Resp BP Pulse Ox 36.8 C 73 24 H 134/77 H 92 01/26/22 03:33 01/26/22 07:40 01/26/22 07:40 01/26/22 03:33 01/26/22 07:44 Oxygen Flow Rate (L/min) 6 Oxygen Delivery Method Nasal Cannula Weight: 122.5 kg Body Mass Index (BMI) 33.7 Intake & Output: Intake and Output for Last 24 Hours 01/24/22 01/25/22 01/26/22 23:59 23:59 23:59 Intake Total 360 / 360 850 / 850 Output Total 275 / 275 600 / 1000 800 / 800 Balance 85 / 85 250 / -150 -800 / -800 Lab / Micro Data Result Diagrams: 01/26/22 00:50 01/26/22 00:50 Labs: Laboratory Results - last 24 hr 01/24/22 13:45: Fl Pathologist Comment Reviewed 01/26/22 00:50: WBC 15.9 H, RBC 2.88 L, Hgb 8.7 L, Hct 29.7 L, MCV 103.1 H, MCH 30.2, MCHC 29.3 L D, RDW Std Deviation 56.2 H, RDW Coeff of Deandre 14.9 H, Plt Count 277, MPV 9.2, Immature Gran % (Auto) 0.400, Neut % (Auto) 86.5 H, Lymph % (Auto) 8.7 L, [place] % (Auto) 4.3, Eos % (Auto) 0.0, Baso % (Auto) 0.1, Absolute Neuts (auto) 13.8 H, Absolute Lymphs (auto) 1.38, Nucleated RBC % 0 01/26/22 00:50: Sodium 136, Potassium 4.7, Chloride 93 L, Carbon Dioxide 43.0 H, Anion Gap 0 L, BUN 43 H, Creatinine 0.76, Estim Creat Clear Calc 69.24, Est GFR (MDRD) Af Amer 127, Est GFR (MDRD) Non-Af 105, BUN/Creatinine Ratio 56.7 H, Glucose 126 H, Calcium 9.3 Micro: Microbiology 01/24/22 13:45 Wash - Bronchial Wash Gram Stain - Final 01/24/22 13:45 Wash - Bronchial Wash Respiratory Culture - Preliminary Gram negative yanira GNR lactose abstract manager Radiography Diagnostic Testing: Radiology Impression Chest X-Ray 01/26/22 05:35 IMPRESSION: 1. Worsening opacification of the left lung with volume loss suggesting bronchial obstruction, including mucous plug. 2. Developing right lower lobe atelectasis or infiltrate. Electronically Signed: Garrett Portillo MD (Brooks) at 8:31 EDT Reading Location ID and State: [address] [place] [address] , Service support , Rhythm Strip Rhythm Strip: Sinus Rhythm Rate: 75 Ectopy: None Physical Exam Const alert and no apparent distress General Appearance: cooperative Nutritional Appearance: obese HEENT normocephalic and head/scalp atraumatic Eyes PERRL, EOMs intact bilaterally and conjunctivae normal Neck supple General: trachea midline Resp Resp Narrative: Improved air exchange on the left today Effort and Inspection: Negative for actively coughing Auscultation: diminished lung sounds left throughout Cardio regular rate, regular rhythm, no murmurs, no rub and no gallops GI normal to inspection, nondistended, normoactive bowel sounds Extremity Extremity Narrative: Lymphedema bilateral upper extremities. Sharan wraps in place. General Extremity: edema; Negative for clubbing Skin no rashes or lesions noted Neuro CN's II-XII intact bilaterally, moves all extremities and no focal motor deficits Psych Mood & Affect: flat affect Charges/Coding Visit Charges Inpatient E&M: 51613 Subs Hosp L3
[2022-01-26] MEDS: Folic Acid 1 MG Tablet 0.5 MG PO (10:41)
[2022-01-26] MEDS: Hydroxychloroquine 200 MG Tablet PO (10:41)
[2022-01-26] MEDS: Ferrous Sulfate 325 MG Tablet PO (10:41)
[2022-01-26] MEDS: Cholecalciferol (VIT D3) 25 MCG TABLET (1,000 UNITS) 50 MCG PO (10:42)
[2022-01-26] MEDS: Calcium Carbonate 500 MG Tablet PO (10:42)
[2022-01-26] MEDS: Amiodarone 200 MG Tablet PO (10:43)
[2022-01-26] MEDS: Carvedilol 12.5 MG Tablet PO (10:43)
[2022-01-26] MEDS: Losartan Potassium 25 MG Tablet PO (10:43)
[2022-01-26] MEDS: DULoxetine Hcl 30 MG Capsule PO (10:43)
[2022-01-26] MEDS: Furosemide 40 MG Tablet PO (10:43)
[2022-01-26] MEDS: Psyllium 1 PACKET PO (10:43)
[2022-01-26] MEDS: Polyethylene Glycol 3350 17 GM PACKET PO (10:44)
[2022-01-26] MEDS: Pantoprazole Sodium 40 MG Tablet PO (10:44)
[2022-01-26] MEDS: guaiFENesin 1,200 MG Tablet 1200 MG PO (10:44)
[2022-01-26] MEDS: Fluticasone 0.05% 1 SPRAY NASAL.SRY NASAL (10:44)
[2022-01-26] MEDS: Ascorbic Acid 500 MG Tablet PO (10:44)
[2022-01-26] MEDS: Senna/Docusate Sodium 1 Tablet PO (10:44)
[2022-01-26] MEDS: Juven (unflavored) Packet 1 PACKET PO (10:45)
[2022-01-26] MEDS: Azelastine HCl NASAL.SRY 1 SPRAY NASAL (10:56)
[2022-01-26] MEDS: levoFLOXacin IV 750 MG/150 ML BAG 100 MG IV (10:58)
--- NOTE | 2022-01-26 11:20 | CPS ---
pt complained about the vest therapy telling family it hurt and he is SOB but declined aerosol. family in room & heard his refusal.
--- NOTE | 2022-01-26 11:53 | CASEMGMT ---
SW was informed of a referral to Hospice. SW spoke with patient's Altagracia and patient. SW introduced self and role at [facility]. SW explained that SW will make a referral to Hospice and someone will be contacting Altagracia. They were in agreement with this. KASIA called Emilia at Hospice regarding referral as it would be ideal for patient to be seen today. Referral was faxed and Emilia will make sure patient is seen today. Kathrin Lafleur [employer]PER[employer]
--- NOTE | 2022-01-26 12:51 | PCM.DC.SUM ---
Documented by User: Moni Victoria NP, TELEPHONE ADVICE NURSE-C 01/26/22 13:07 Providers Date of Admission: 01/20/22 Date of Discharge: 01/26/22 Primary Care Physician: Toni Adams Consultations 01/20/22 17:20 Consult: [employer] / Pulmonary Medicine Routine Consulting Provider: [facility] Reason for Consult: left lung collapse EMERGENT Consult: No MD Notified: Yes Date Notified: 01/20/22 Time Notified: 16:38 Method of Notification: Provider Initiated 01/26/22 11:11 Consult: Hospice / Palliative Care Routine Consulting Provider: [facility] Reason for Consult: Left lung collapse w/ extensive mucous plugging, resp failure, victorino EMERGENT Consult: Yes MD Notified: Yes Date Notified: 01/26/22 Time Notified: 11:12 Method of Notification: Provider Initiated Reason For Visit: LEFT LUNG COLLAPSE, BRADYCARDIA Diagnosis Discharge Diagnosis (1) Abnormal chest CT: Status: Acute Code(s): R93.89 - Abnormal findings on diagnostic imaging of other specified body structures Medications at Discharge Home Medications hydroxychloroquine 200 mg PO BID 11/07/18 methotrexate sodium 8 tab PO MO 11/07/18 cholecalciferol (vitamin D3) 2,000 unit PO DAILY@0800 12/13/18 ferrous sulfate 325 mg (65 mg iron) tablet,delayed release 325 mg PO DAILY tab 03/11/19 furosemide 40 mg tablet 40 mg PO DAILY tab 12/25/19 duloxetine 30 mg capsule,delayed release 30 mg PO BID cap 05/26/21 losartan 25 mg PO DAILY 09/21/21 Systane Complete 2 drp EACH EYE Q2H PRN PRN 11/06/21 azelastine 1 spray INTRANASAL BID 11/15/21 calcium carbonate 500 mg PO BIDCM 11/15/21 carvedilol 12.5 mg PO BID 11/15/21 fluticasone propionate 1 spray INTRANASAL BID 11/15/21 folic acid 0.4 mg PO DAILY 11/15/21 omeprazole 40 mg PO DAILY 11/15/21 sennosides-docusate sodium [Senna Plus] 1 tab PO BID 11/15/21 nystatin [Nyamyc] 1 applic TOPICAL BID #0 g 11/17/21 rivaroxaban 20 mg tablet 20 mg PO DAILY #90 tab 11/18/21 Metamucil 1 tbsp PO DAILY 01/20/22 ascorbic acid (vitamin C) 500 mg PO BID 01/20/22 polyethylene glycol 3350 17 g PO DAILY 01/20/22 amiodarone 200 mg tablet 200 mg PO DAILY #90 tab 01/21/22 Hospital Course Operations None Procedures Bronchoscopy Summary of Care Provided Hospital Course: Patient is an 81-year-old male admitted 01/20/2022 due to bradycardia, found to have collapsed left lung. 1. Acute on chronic hypoxic respiratory failure secondary to collapse of left lung, bronchial obstruction-CT showed left lung collapse with noncalcified nodules of the right lower lobe. Pulmonary medicine consulted during admission. Patient underwent bronchoscopy 01/24/2022 which showed extensive mucus plugging. Patient initially responded well to mucus removal. Unfortunately, due to overall debility and weakness/comorbidities, patient has weak cough and repeat chest x-ray again suggestive of bronchial obstruction including mucous plug. Per pulmonary, repeat bronchoscopy will likely not improve overall condition. Discussed with family and patient plan of care and decision was made to return home with hospice services. 2. Bradycardia-reported by home health provider. No further bradycardia during admission. Continue amiodarone and carvedilol with hold parameters. Echo with EF 55 to 60%. 3. Paroxysmal atrial fibrillation-continue amiodarone, carvedilol, Xarelto. 4. Chronic hypoxic respiratory failure secondary to chronic COPD-no acute exacerbation. Continue supplement oxygen to maintain O2 above 90%. As needed aerosols. 5. History of rheumatoid arthritis-on methotrexate and hydroxychloroquine. 6. Hypertension-continue carvedilol, losartan. 7. Depression-on duloxetine. 8. 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 Physical Exam Const alert, oriented x3 and no apparent distress Orientation / Consciousness: awake, oriented to person, oriented to place and oriented to time HEENT normocephalic and moist oral mucous membranes Eyes PERRL, EOMs intact bilaterally and conjunctivae normal Neck no lymphadenopathy Resp clear to auscultation bilaterally Auscultation: diminished lung sounds Cardio regular rate, regular rhythm and no murmurs Peripheral Pulses: pulses 2+ throughout GI normal to inspection, nondistended, normoactive bowel sounds, non-tender and non-distended Extremity normal to inspection Skin no rashes or lesions noted Lesions: no lesions Rashes: no rashes Trauma: no lacerations or abrasions Neuro CN's II-XII intact bilaterally, no focal motor deficits, no sensory deficits noted and deep tendon reflexes 2+ bilaterally Psych mental status grossly normal and affect normal Patient seen and examined prior to discharge. Physical assessment as noted above. Home with hospice transition as noted above. This patient was seen by JUANA Greco under the supervision of Dr. Harrison. Time spent examining patient, reviewing data and subsequent management of care: 17 Minutes. Weight / BMI Weight Weight: 270 lb 1.06 oz Body Mass Index (BMI) 33.7 ABG / Lab / Microbiology Data Result Diagrams: 01/26/22 00:50 01/26/22 00:50 Laboratory: Laboratory Results - last 24 hr 01/24/22 13:45: Fl Pathologist Comment Reviewed 01/26/22 00:50: WBC 15.9 H, RBC 2.88 L, Hgb 8.7 L, Hct 29.7 L, MCV 103.1 H, MCH 30.2, MCHC 29.3 L D, RDW Std Deviation 56.2 H, RDW Coeff of Deandre 14.9 H, Plt Count 277, MPV 9.2, Immature Gran % (Auto) 0.400, Neut % (Auto) 86.5 H, Lymph % (Auto) 8.7 L, Riley % (Auto) 4.3, Eos % (Auto) 0.0, Baso % (Auto) 0.1, Absolute Neuts (auto) 13.8 H, Absolute Lymphs (auto) 1.38, Nucleated RBC % 0 01/26/22 00:50: Sodium 136, Potassium 4.7, Chloride 93 L, Carbon Dioxide 43.0 H, Anion Gap 0 L, BUN 43 H, Creatinine 0.76, Estim Creat Clear Calc 69.24, Est GFR (MDRD) Af Amer 127, Est GFR (MDRD) Non-Af 105, BUN/Creatinine Ratio 56.7 H, Glucose 126 H, Calcium 9.3 Microbiology: Microbiology 01/24/22 13:45 Wash - Bronchial Wash Gram Stain - Final 01/24/22 13:45 Wash - Bronchial Wash Respiratory Culture - Preliminary Gram negative yanira 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 Worsening opacification of the left lung with volume loss suggesting bronchial obstruction, including mucous plug. 2. Developing right lower lobe atelectasis or infiltrate. Electronically Signed: Grarett Portillo MD ([place]) at 8:31 EDT Reading Location ID and State: [place] , Service support , Meaningful Use Info Meaningful Use Diagnoses (Choose all that apply): None applicable Discharge Plan Admission Admit Date/Time: 01/20/22 15:29 Primary Reason for Your Visit: Respiratory failure, left lung collapse, hospice transition Attending Provider: Maryellen Harrison Consulting Providers: Mickey Daniels ; Antwan Delgado ; Hazel Yee TELEPHONE ADVICE NURSE ; Malaika King ; Kale Morrell ; Ghazal Min ; Benita Llanos ; Malini Jones ; Lucia Ponce TELEPHONE ADVICE NURSE Discharge Orders/Prescriptions Prescriptions: Continued ferrous sulfate 325 mg (65 mg iron) tablet,delayed release (DR/EC) 325 mg PO DAILY RF: 0 furosemide [Lasix] 40 mg tablet 40 mg PO DAILY RF: 0 duloxetine [Cymbalta] 30 mg capsule,delayed release(DR/EC) 30 mg PO BID RF: 0 methotrexate sodium 2.5 MG tablet 8 tab PO MO RF: 0 hydroxychloroquine 200 MG tablet 200 mg PO BID RF: 0 cholecalciferol (vitamin D3) 1,000 UNIT tablet 2,000 unit PO DAILY@0800 RF: 0 losartan 25 mg Tablet 25 mg PO DAILY RF: 0 Systane Complete 0.6 % Drops 2 drp EACH EYE Q2H PRN PRN (Reason: Dry Eyes) RF: 0 carvedilol 12.5 mg tablet 12.5 mg PO BID RF: 0 sennosides-docusate sodium [Senna Plus] 8.6-50 mg tablet 1 tab PO BID RF: 0 folic acid 400 mcg Tablet 0.4 mg PO DAILY RF: 0 omeprazole 40 mg capsule,delayed release(DR/EC) 40 mg PO DAILY RF: 0 calcium carbonate 500 MG tablet,chewable 500 mg PO BIDCM RF: 0 fluticasone propionate 50 mcg/actuation spray,suspension 1 spray INTRANASAL BID RF: 0 azelastine 0.15 % (205.5 mcg) spray,non-aerosol 1 spray INTRANASAL BID RF: 0 nystatin [Nyamyc] 100,000 unit/gram Powder 1 applic topical BID Qty: 0 RF: 0 ascorbic acid (vitamin C) 500 mg Tablet 500 mg PO BID RF: 0 polyethylene glycol 3350 17 gram/dose Powder 17 g PO DAILY RF: 0 Metamucil 3.4 gram/5.4 gram Powder 1 tbsp PO DAILY RF: 0 Xarelto 20 mg tablet 20 mg PO DAILY Qty: 90 RF: 3 amiodarone 200 mg tablet 200 mg PO DAILY Qty: 90 RF: 3 Referrals / Follow Up: Toni Adams [Other] Semaj Concepcion MD [NON-STAFF] - Disposition Disposition (needs filled in before D/C Order can be placed): Hospice in Home Documented by User: Dr. Maryellen Harrison MD 01/27/22 17:31 Providers Date of Admission: 01/20/22 Reason For Visit: LEFT LUNG COLLAPSE, BRADYCARDIA Medications at Discharge Home Medications hydroxychloroquine 200 mg PO BID 11/07/18 methotrexate sodium 8 tab PO MO 11/07/18 cholecalciferol (vitamin D3) 2,000 unit PO DAILY@0800 12/13/18 ferrous sulfate 325 mg (65 mg iron) tablet,delayed release 325 mg PO DAILY tab 03/11/19 furosemide 40 mg tablet 40 mg PO DAILY tab 12/25/19 duloxetine 30 mg capsule,delayed release 30 mg PO BID cap 05/26/21 losartan 25 mg PO DAILY 09/21/21 Systane Complete 2 drp EACH EYE Q2H PRN PRN 11/06/21 azelastine 1 spray INTRANASAL BID 11/15/21 calcium carbonate 500 mg PO BIDCM 11/15/21 carvedilol 12.5 mg PO BID 11/15/21 fluticasone propionate 1 spray INTRANASAL BID 11/15/21 folic acid 0.4 mg PO DAILY 11/15/21 omeprazole 40 mg PO DAILY 11/15/21 sennosides-docusate sodium [Senna Plus] 1 tab PO BID 11/15/21 nystatin [Nyamyc] 1 applic TOPICAL BID #0 g 11/17/21 rivaroxaban 20 mg tablet 20 mg PO DAILY #90 tab 11/18/21 Metamucil 1 tbsp PO DAILY 01/20/22 ascorbic acid (vitamin C) 500 mg PO BID 01/20/22 polyethylene glycol 3350 17 g PO DAILY 01/20/22 amiodarone 200 mg tablet 200 mg PO DAILY #90 tab 01/21/22 ABG / Lab / Microbiology Data Result Diagrams: 01/26/22 00:50 01/26/22 00:50 Discharge Plan Admission Admit Date/Time: 01/20/22 15:29 Primary Reason for Your Visit: Respiratory failure, left lung collapse, hospice transition Attending Provider: Maryellen Harrison Consulting Providers: Mickey Daniels ; Antwan Delgado ; Hazel Yee TELEPHONE ADVICE NURSE ; Malaika King ; Kale Morrell ; Ghazal Min ; Benita Llanos ; Malini Jones ; Lucia Ponce TELEPHONE ADVICE NURSE Discharge Orders/Prescriptions Prescriptions: Continued ferrous sulfate 325 mg (65 mg iron) tablet,delayed release (DR/EC) 325 mg PO DAILY RF: 0 furosemide [Lasix] 40 mg tablet 40 mg PO DAILY RF: 0 duloxetine [Cymbalta] 30 mg capsule,delayed release(DR/EC) 30 mg PO BID RF: 0 methotrexate sodium 2.5 MG tablet 8 tab PO MO RF: 0 hydroxychloroquine 200 MG tablet 200 mg PO BID RF: 0 cholecalciferol (vitamin D3) 1,000 UNIT tablet 2,000 unit PO DAILY@0800 RF: 0 losartan 25 mg Tablet 25 mg PO DAILY RF: 0 Systane Complete 0.6 % Drops 2 drp EACH EYE Q2H PRN PRN (Reason: Dry Eyes) RF: 0 carvedilol 12.5 mg tablet 12.5 mg PO BID RF: 0 sennosides-docusate sodium [Senna Plus] 8.6-50 mg tablet 1 tab PO BID RF: 0 folic acid 400 mcg Tablet 0.4 mg PO DAILY RF: 0 omeprazole 40 mg capsule,delayed release(DR/EC) 40 mg PO DAILY RF: 0 calcium carbonate 500 MG tablet,chewable 500 mg PO BIDCM RF: 0 fluticasone propionate 50 mcg/actuation spray,suspension 1 spray INTRANASAL BID RF: 0 azelastine 0.15 % (205.5 mcg) spray,non-aerosol 1 spray INTRANASAL BID RF: 0 nystatin [Nyamyc] 100,000 unit/gram Powder 1 applic topical BID Qty: 0 RF: 0 ascorbic acid (vitamin C) 500 mg Tablet 500 mg PO BID RF: 0 polyethylene glycol 3350 17 gram/dose Powder 17 g PO DAILY RF: 0 Metamucil 3.4 gram/5.4 gram Powder 1 tbsp PO DAILY RF: 0 Xarelto 20 mg tablet 20 mg PO DAILY Qty: 90 RF: 3 amiodarone 200 mg tablet 200 mg PO DAILY Qty: 90 RF: 3 Referrals / Follow Up: Toni Adams [Other] Semaj Concepcion MD [NON-STAFF] - Disposition Disposition (needs filled in before D/C Order can be placed): Hospice in Home Charges/Coding Addendum Addendum: This patient was seen in conjunction with Moni Victoria NP. I have independently interviewed and examined the patient and reviewed pertinent historical, laboratory, and other data. I have reviewed her note and concur with her documentation 81-year-old male with multiple comorbidities who was admitted to the hospital with bradycardia and found to have a collapsed left lung on chest x-ray. Patient was admitted to the PCU. Pulmonology was consulted. Patient underwent bronchoscopy on through which showed extensive mucus plugging. Post bronchoscopy, patient's oxygen requirements improved from 6 L about 4 L. Patient however was very weak and had a weak cough and could not always expectorate. Chest physiotherapy was started. Repeat chest x-ray postprocedure showed some improvement in aeration in the left upper lobe. Follow-up x-ray showed complete opacification similar to what was present on admission. Discussed with family, patient was hospice appropriate. Family agreed and wanted patient discharged home with hospice. Physical Exam: Gen: Comfortable, not pale, not jaundiced, obese, on 5 L oxygen CVS:HS I +II, regular, no murmurs RESP: Diminished at lung bases GI: BS present and normal, soft, nontender, no palpable organs EXT: Generalized edema, anasarca Time spent coordinating patient's care, discussing with nursing, discussing with pulmonology: 35 minutes Visit Charges Inpatient E&M: 42830 Disch Hosp
--- NOTE | 2022-01-26 13:55 | CASEMGMT ---
Hospice said papers were signed and it is fine for patient to go home today. SW spoke with patient's via phone and she said anytime for transportation is fine. SW will notify her of time. D/c planning lead is arranging transport via [facility]. d/c planning lead Zenobia arranged for patient to get picked up at 49. KASIA called Emilia at Hospice and let her know the black pickler time for patient. KASIA will fax d/c summary and DNR to Hospice once signed. Plan: d/c home with [facility]. Kathrin Lafleur HOME HEALTH CARE SOCIAL WORKER SABRINA
--- NOTE | 2022-01-26 14:02 | CM.UR ---
Discharge Film Producer Called [facility]. 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 RN Nurse is aware. Altagracia the has been notified. Zenobia Macias Discharge Film Producer
--- NOTE | 2022-01-26 14:47 | CASEMGMT ---
Call to Jacy at [facility] to notify her that pt is going home with Hospice, voices understanding. Promise GLEZ CM
--- NOTE | 2022-01-26 15:44 | CASEMGMT ---
Discharge Division Chief Faxed D/C orders and DNR to hospice. Zenobia Macias Discharge Division Chief
== END 2022-01-26 16:36 | disposition hospice, home (50) | DRG 205 ==
LOC: ED 15:36 → PCU 15:37
PROVIDERS: Internal Medicine; Internal Medicine Critical Care Medicine; Nurse Practitioner Family; Admitting Provider Student in an Organized Health Care Education/Training Program; Emergency Provider Emergency Medicine; Visit Provider Internal Medicine
PROC: 0BJ08ZZ Inspection of Tracheobronchial Tree, Via Natural or Artificial Opening Endoscopic (ICD-10-PCS; CPT 31622; principal; 2022-01-24 13:15)
DX: J98.11 Atelectasis (principal); J96.21 Acute and chronic respiratory failure with hypoxia; J90 Pleural effusion, not elsewhere classified; Z99.81 Dependence on supplemental oxygen; I48.0 Paroxysmal atrial fibrillation; J44.9 Chronic obstructive pulmonary disease, unspecified; M06.9 Rheumatoid arthritis, unspecified; R00.1 Bradycardia, unspecified; I10 Essential (primary) hypertension; J98.09 Other diseases of bronchus, not elsewhere classified; F32.A Depression, unspecified; E66.9 Obesity, unspecified; Z68.36 Body mass index [BMI] 36.0-36.9, adult; Z79.01 Long term (current) use of anticoagulants; Z79.899 Other long term (current) drug therapy; Z87.01 Personal history of pneumonia (recurrent); Z87.19 Personal history of other diseases of the digestive system
CPT/HCPCS: 36415; 71045; 71250; 76604; 80048; 80053; 83880; 84484; 85025; 85610; 85730; 87070; 87077; 87101; 87186; 87205; 87252; 88108; 88305; 88312; 88313; 89050; 92610; 93005; 93306; 94640; 94667; 94668; 97162; 97166; 97530; 97802; 99251; 99285; J7120; Q9957; A4216; C8929; G0463; J2405; J8610